=== PATIENT | female | born 1970 | race Native Hawaiian/Other Pacific Islander ===

== ENCOUNTER 2020-03-03 09:36 | Outpatient (REF) | payer MEDICARE, MEDICAID, SELFPAY ==
[2020-03-03 10:11] LABS: MANUAL DIFF FLAG NO
[2020-03-03 10:18] LABS: Basophils Absolute Auto 0.1 X10*3/uL (0.0-0.2); Basophils Percent Auto 0.5 % (0-2); Eosinophils Absolute Auto 0.4 X10*3/uL (0.0-0.4); Eosinophils Percent Auto 3.8 % (0-4); Hematocrit 42.8 % (37-47); Imm Gran Abs Auto 0.06 X10*3/uL (0.00-0.03); Imm Gran Pct Auto 0.5 % (0.0-0.4); Lymphocytes Absolute Auto 2.7 X10*3/uL (1.2-4.9); Lymphocytes Percent Auto 24.2 % (20-40); Mean Corpuscular HGB Conc 32.7 g/dl (31.0-35.0); Mean Corpuscular Hemoglobin 27.9 pg (27.0-33.0); Mean Corpuscular Volume 85.3 fL (80-98); Mean Platelet Volume 10.9 fL (9.4-12.3); Monocytes Absolute Auto 0.6 X10*3/uL (0.1-1.2); Monocytes Percent Auto 5.7 % (2-11); Neutrophils Absolute Auto 7.3 X10*3/uL (2.0-8.3); Neutrophils Percent Auto 65.3 % (45-73); Platelet Count 289 X10*3/uL (160-400); Red Blood Count 5.02 X10*6/uL (4.20-5.50); Red Cell Distribution Width 13.4 % (11.0-16.0); White Blood Count 11.2 X10*3/uL (4.8-10.8)
[2020-03-03 10:25] LABS: Estimated Average Glucose 315 mg/dL; Hemoglobin A1c % 12.6 %
[2020-03-03 10:44] LABS: B Type Natriuretic Peptide < 10 pg/mL (<100)
[2020-03-03 10:50] LABS: Alanine Aminotransferase 27 U/L (0-31); Alkaline Phosphatase 115 U/L (39-117); Anion Gap 13 (12-20); Aspartate Amino Transferase 16 U/L (5-31); Blood Urea Nitrogen 17 mg/dL (9-16); Calcium 9.4 mg/dL (8.4-10.2); Carbon Dioxide 26 mmol/L (22-29); Chloride 98 mmol/L (96-108); Cholesterol 101 mg/dL; Estimated Glomerular Filt Rate 55; Glucose Fasting 377 mg/dL (60-99); HDL Cholesterol 34 mg/dL; LDL Cholesterol Calculated 48 mg/dl; Potassium 4.6 mmol/l (3.3-5.1); Sodium 132 mmol/L (135-145); Total Protein 7.5 g/dL (6.5-8.0); Triglycerides 99 mg/dL
[2020-03-03 11:42] LABS: Folate 10.4 ng/mL (> or = 4.0); Vitamin B12 499 pg/mL (200-900)
[2020-03-03 12:14] LABS: Glucose Urine UA 500 MG/DL (NEG); Leukocyte Esterase Urine NEG (NEG); Nitrite Urine NEG (NEG); PH 5.5 (5.0-8.0); Specific Gravity - Urine >= 1.030 (1.005-1.025); Urine Blood NEG (NEG); Urine Ketones 5 MG/DL (NEG); Urine Protein TRACE MG/DL (NEG-TRACE)
[2020-03-03 12:16] LABS: Appearance Urine CLOUDY; Color Urine DARK YELLOW
[2020-03-03 12:34] LABS: RBC Urine 0 /HPF (0); Squamous Epithelial Cell Urine 3+ /LPF; WBC Urine 0-2 /HPF (0-4)
[2020-03-03 12:35] LABS: Bacteria Urine TRACE /LPF; Mucus Urine TRACE /LPF
[2020-03-03 12:39] LABS: Microalbum/Creatinine Ratio Ur 18.4 ug/mg cr
== END 2020-03-03 09:37 | disposition home or self-care (01) ==
LOC: HO.LAB 09:36
PROVIDERS: PCP Internal Medicine; Visit Provider Internal Medicine
DX: E11.43 Type 2 diabetes mellitus with diabetic autonomic (poly)neuropathy (principal); E78.5 Hyperlipidemia, unspecified; I11.9 Hypertensive heart disease without heart failure; G57.93 Unspecified mononeuropathy of bilateral lower limbs; K31.84 Gastroparesis; K21.9 Gastro-esophageal reflux disease without esophagitis
CPT/HCPCS: 36415; 80053; 80061; 81003; 81015; 82043; 82607; 82746; 83036; 83880; 85025

== ENCOUNTER 2020-03-04 15:40 | Outpatient (REF) | payer MEDICARE, MEDICAID, SELFPAY | END 2020-03-04 15:41 | disposition home or self-care (01) | LOC: HO.LAB 15:40 | PROVIDERS: PCP Internal Medicine; Visit Provider Internal Medicine Gastroenterology | DX: Z13.89 Encounter for screening for other disorder (principal) ==

== ENCOUNTER 2020-03-07 20:30 | Outpatient (REF) | payer MEDICARE, MEDICAID, SELFPAY ==
[2020-03-14 19:02] LABS: Pancreatic Elastase-1 276 mcg/g
== END 2020-03-07 20:31 | disposition home or self-care (01) ==
LOC: HO.LNP 20:30
PROVIDERS: Visit Provider Internal Medicine Gastroenterology
DX: K86.89 Other specified diseases of pancreas (principal)
CPT/HCPCS: 82656

== ENCOUNTER 2020-03-08 13:55 | Outpatient (REF) | payer MEDICARE, MEDICAID, SELFPAY | END 2020-03-08 13:56 | disposition home or self-care (01) | LOC: HO.LNP 13:55 | PROVIDERS: Visit Provider Internal Medicine Gastroenterology | DX: Z13.89 Encounter for screening for other disorder (principal) ==

== ENCOUNTER → 2020-03-11 14:25 | Outpatient (BNVA) | payer MEDICARE, MEDICAID, SELFPAY | PROVIDERS: Visit Provider Internal Medicine Gastroenterology | DX: E11.43 Type 2 diabetes mellitus with diabetic autonomic (poly)neuropathy (principal); K31.84 Gastroparesis; K74.60 Unspecified cirrhosis of liver; K62.5 Hemorrhage of anus and rectum; K86.89 Other specified diseases of pancreas; K59.09 Other constipation; I10 Essential (primary) hypertension; F41.9 Anxiety disorder, unspecified; Z88.8 Allergy status to other drugs, medicaments and biological substances; Z79.4 Long term (current) use of insulin; Z79.82 Long term (current) use of aspirin; Z79.899 Other long term (current) drug therapy | CPT/HCPCS: 99212 ==

== ENCOUNTER 2020-04-06 09:38 | Outpatient (REF) | payer MEDICARE, MEDICAID, SELFPAY ==
--- NOTE | 2020-04-06 09:44 | US_ITS ---
EXAMINATION: US ABDOMEN COMPLETE CLINICAL INFORMATION: Unspecified cirrhosis of liver. COMPARISON: CT abdomen and pelvis 12/09/2019. Ultrasound abdomen complete 07/24/2019. Ultrasound abdomen with elastography 10/30/2018. TECHNIQUE: Real-time imaging of the abdominal viscera. FINDINGS: PANCREAS: Heterogeneous echogenicity with no focal abnormality. The tail is obscured by gas. ABDOMINAL AORTA: The proximal, mid, and distal segments are normal in caliber. INFERIOR VENA CAVA: Visualized portions are normal. LIVER: The liver is normal in size. The liver contour is normal. There is diffuse increased liver parenchymal echogenicity, consistent with hepatic steatosis. No focal hepatic lesion. There is no intrahepatic biliary duct dilatation seen. GALLBLADDER: There is a 0.7 cm gallbladder wall polyp noted. This appears increased in prominence from prior. 0.3 cm gallbladder wall polyp again noted. The gallbladder is physiologically distended without evidence of stones, sludge, wall thickening or pericholecystic fluid. COMMON BILE DUCT: Normal in caliber measuring 0.6 cm in diameter. RIGHT KIDNEY: Normal. No hydronephrosis. No renal calculi or focal parenchymal lesions. The kidney measures 11.8 cm in maximum dimension. LEFT KIDNEY: Lower pole 1.4 cm cyst. No hydronephrosis or renal calculi. The kidney measures 12.4 cm in maximum dimension. SPLEEN: Normal. The spleen measures 11.3 cm in maximum dimension. FREE FLUID: None. US/US abdomen complete IMPRESSION: No liver lesion identified. Of note, the contour of the liver appears normal. Hepatic steatosis present. 0.7 cm gallbladder wall polyp, appearing increased in size from prior. Given that this is growing, suggest continued close follow-up versus consideration of removal.
== END 2020-04-06 09:39 | disposition home or self-care (01) ==
LOC: HO.US 09:38
PROVIDERS: PCP Internal Medicine; Visit Provider Internal Medicine Gastroenterology
DX: K74.60 Unspecified cirrhosis of liver (principal)
CPT/HCPCS: 76700

== ENCOUNTER → 2020-05-06 11:30 | Outpatient (BNVA) | payer OTHER, SELFPAY | PROVIDERS: Visit Provider Anesthesiology | DX: M47.816 Spondylosis without myelopathy or radiculopathy, lumbar region (principal); M96.1 Postlaminectomy syndrome, not elsewhere classified; M43.16 Spondylolisthesis, lumbar region; G47.33 Obstructive sleep apnea (adult) (pediatric); K74.60 Unspecified cirrhosis of liver; E66.01 Morbid (severe) obesity due to excess calories; Z68.43 Body mass index [BMI] 50.0-59.9, adult | CPT/HCPCS: Q3014 ==

== ENCOUNTER → 2020-05-10 10:24 | Outpatient (BNVA) | payer MEDICARE, MEDICAID, SELFPAY | PROVIDERS: PCP Internal Medicine; Visit Provider Internal Medicine Gastroenterology | DX: Z13.89 Encounter for screening for other disorder (principal) | CPT/HCPCS: Q3014 ==

== ENCOUNTER 2020-05-17 11:08 | Day surgery (SDC) | payer MEDICARE, SELFPAY ==
[2020-05-06 20:36] VITALS: BMI 51.2
--- NOTE | 2020-05-07 15:22 | P.CONAN_ITS ---
HPI - Anesthesia Eval Consult details Narrative: Pt cancelled 05/17/20 by anesthesia d/t elevated blood sugar. Needs endocrine clearance before reschedule. 50yo F for Upper Endoscopy and Colonoscopy [facility] Past Medical History Medical History Anxiety Asthma Benign essential hypertension Body mass index [BMI] 50.0-59.9, adult Chronic constipation Cirrhosis of liver without ascites Depression Diastolic dysfunction Dyslipidemia Fatty pancreas Gastroparesis GERD (gastroesophageal reflux disease) HTN (hypertension) Insomnia Liver cirrhosis Lumbar degenerative disc disease Morbid (severe) obesity due to excess calories Neuropathic pain of both feet Obstructive sleep apnea Pars defect of lumbar spine Periodic limb movement disorder Postlaminectomy syndrome, lumbar Rectal bleeding Sleep apnea with use of continuous positive airway pressure (CPAP) Spondylolisthesis, lumbar region Spondylosis of lumbar spine Type 2 diabetes mellitus with diabetic autonomic (poly)neuropathy Family History Family History (Updated 05/10/20 @ 10:27 by Tara Gonzalez CMA) Father Diabetes mellitus Hypertension Mother Diabetes mellitus Hypertension Uterine cancer History of heart attack Surgical History Surgical History H/O cardiac catheterization (~12/14/17) H/O section History of appendectomy History of laryngoscopy (~02/10/19) History of lumbar discectomy History of ventral hernia repair (~2008) Social History Social History (Updated 05/10/20 @ 10:27 by Tara Gonzalez CMA) Alcohol intake: never Smoking Status: Former smoker Meds Allergies Allergy/AdvReac Type Severity Reaction Status Date / Time empagliflozin Allergy Intermediate RASH Verified 05/06/20 11:32 [From JARDIANCE] metformin [METFORMIN] AdvReac Intermediate RASH, Verified 05/06/20 11:32 sick, rash, gi upset sitagliptin [From JANUVIA] AdvReac Unknown nausea, Verified 05/06/20 11:32 hypoglycemia Home Medications Medication Instructions Recorded Confirmed Type aspirin 81 mg tablet,delayed 81 mg PO DAILY 03/04/20 05/10/20 History release atorvastatin 40 mg tablet 40 mg PO DAILY tab 03/04/20 05/10/20 History budesonide-formoterol HFA 160 2 puff INHALATION BID 03/04/20 05/10/20 History mcg-4.5 mcg/actuation aerosol inhaler dulaglutide 1.5 mg/0.5 mL 1.5 mg SUBCUT QWEEK ml 03/04/20 05/10/20 History subcutaneous pen injector furosemide 20 mg tablet 20 mg PO DAILY tab 03/04/20 05/10/20 History insulin regular hum U-500 conc See Rx Instructions SUBCUT 03/04/20 05/10/20 History TIDWMEAL ml metoprolol succinate 25 mg 25 mg PO DAILY 03/04/20 05/10/20 History tablet,extended release 24 hr pramipexole 1 mg tablet 1 mg PO BID tab 03/04/20 05/10/20 History spironolactone 50 mg tablet 50 mg PO DAILY tab 03/04/20 05/10/20 History Exam Exam Date and Time: May 07, 2020 1522 Height,Weight and Vital Signs: Height 5 ft 3 in Weight 131.088 kg Pertinent Lab Results Pertinent Lab Results: Laboratory Tests 12/09/19 12/09/19 11:45 11:45 WBC 10.2 Hgb 12.9 Hct 40.9 Plt Count 300 Sodium 137 Potassium 4.1 Chloride 103 Bicarbonate 28 Total Bilirubin 0.6 Direct Bilirubin 0.3 AST 16 ALT 21 Alkaline Phosphatase 102 Laboratory Tests 03/03/20 09:52 BUN 17 H Creatinine 1.05 Narrative Narrative: ECHO 09/2018: Nml LV sys function with mild LVH, impaired relax, valves wnl, no pericard effusion EKG 09/2019: NSR @ 88 Per pcp note from 12/2019: Repeat nuc stress done at [facility] a few months ago came out nml. Per cardiology note 05/2019: cardiac cath with no obstructive CAD Assessment and Plan Assessment Anesthesia Assessment: Chart Reviewed
[2020-05-17 11:30] VITALS: BMI 49.6
[2020-05-17 11:31] LABS: Glucose, Whole Blood 435 mg/dL (60-115)
[2020-05-17 11:42] VITALS: BP 147/93; PULSE 107; RESP 18; TEMP 36.3; O2SAT 95
--- NOTE | 2020-05-17 11:44 | PC.NURSE ---
Procedure cancelled by Anesthesia because of elevated blood glucose (435) Patient to follow up with [employer] prior to next endoscopic procedure
[2020-05-17 11:46] LABS: Glucose, Whole Blood 452 mg/dL (60-115)
== END 2020-05-17 23:59 ==
LOC: HO.SSS 11:09
PROVIDERS: PCP Internal Medicine; Visit Provider Internal Medicine Gastroenterology
DX: K62.5 Hemorrhage of anus and rectum (principal); Z53.8 Procedure and treatment not carried out for other reasons; K59.01 Slow transit constipation; K74.60 Unspecified cirrhosis of liver; K76.0 Fatty (change of) liver, not elsewhere classified; K31.84 Gastroparesis; K21.9 Gastro-esophageal reflux disease without esophagitis; J45.909 Unspecified asthma, uncomplicated; E11.21 Type 2 diabetes mellitus with diabetic nephropathy; Z79.4 Long term (current) use of insulin
CPT/HCPCS: 82947

== ENCOUNTER 2020-06-01 09:32 | Outpatient (REF) | payer OTHER, SELFPAY ==
[2020-06-01 09:41] LABS: MANUAL DIFF FLAG NO
[2020-06-01 10:09] LABS: Basophils Absolute Auto 0.1 X10*3/uL (0.0-0.2); Basophils Percent Auto 0.6 % (0-2); Eosinophils Absolute Auto 0.5 X10*3/uL (0.0-0.4); Eosinophils Percent Auto 4.8 % (0-4); Hematocrit 41.8 % (37-47); Hemoglobin 13.2 g/dl (12.0-16.0); Imm Gran Abs Auto 0.06 X10*3/uL (0.00-0.03); Imm Gran Pct Auto 0.6 % (0.0-0.4); Lymphocytes Absolute Auto 2.6 X10*3/uL (1.2-4.9); Mean Corpuscular HGB Conc 31.6 g/dl (31.0-35.0); Mean Corpuscular Hemoglobin 27.5 pg (27.0-33.0); Mean Corpuscular Volume 87.1 fL (80-98); Mean Platelet Volume 11.2 fL (9.4-12.3); Monocytes Absolute Auto 0.6 X10*3/uL (0.1-1.2); Monocytes Percent Auto 5.7 % (2-11); Neutrophils Absolute Auto 6.6 X10*3/uL (2.0-8.3); Neutrophils Percent Auto 63.3 % (45-73); Platelet Count 293 X10*3/uL (160-400); Red Cell Distribution Width 13.3 % (11.0-16.0); White Blood Count 10.4 X10*3/uL (4.8-10.8)
[2020-06-01 10:32] LABS: Alanine Aminotransferase 34 U/L (0-31); Alkaline Phosphatase 93 U/L (39-117); Anion Gap 15 (12-20); Aspartate Amino Transferase 25 U/L (5-31); Bilirubin Total 0.6 mg/dL (0.0-1.0); Blood Urea Nitrogen 18 mg/dL (9-16); Calcium 9.8 mg/dL (8.4-10.2); Carbon Dioxide 27 mmol/L (22-29); Chloride 103 mmol/L (96-108); Cholesterol 97 mg/dL; Estimated Glomerular Filt Rate > 60; Glucose Fasting 197 mg/dL (60-99); HDL Cholesterol 32 mg/dL; LDL Cholesterol Calculated 33 mg/dl; Potassium 4.7 mmol/l (3.3-5.1); Sodium 140 mmol/L (135-145); Total Protein 7.5 g/dL (6.5-8.0); Triglycerides 161 mg/dL
[2020-06-01 10:43] LABS: Glucose Urine UA NEG (NEG); Leukocyte Esterase Urine NEG (NEG); Nitrite Urine NEG (NEG); PH 5.5 (5.0-8.0); Specific Gravity - Urine 1.025 (1.005-1.025); Urine Blood TRACE (NEG); Urine Ketones NEG (NEG); Urine Protein NEG (NEG-TRACE)
[2020-06-01 10:47] LABS: Appearance Urine CLEAR; Color Urine YELLOW; TSH reflex Free T4 2.17 mIU/mL (0.32-4.0)
[2020-06-01 10:53] LABS: INTERNATIONAL NORM RATIO 1.1 (0.9-1.1); Prothrombin Time 13.1 SEC (10.8-13.0)
[2020-06-01 11:02] LABS: RBC Urine 0-2 /HPF (0); WBC Urine 0-2 /HPF (0-4)
[2020-06-01 11:03] LABS: Bacteria Urine 1+ /LPF; Hyaline Casts Urine 0-2 /LPF; Mucus Urine 1+ /LPF; Uric Acid Crystals Urine TRACE /LPF
[2020-06-01 11:10] LABS: Microalbum/Creatinine Ratio Ur 7.3 ug/mg cr
[2020-06-01 11:13] LABS: Squamous Epithelial Cell Urine 2+ /LPF
== END 2020-06-01 09:33 | disposition home or self-care (01) ==
LOC: HO.LAB 09:32
PROVIDERS: Anesthesiology; PCP Internal Medicine; Visit Provider Internal Medicine
DX: I11.0 Hypertensive heart disease with heart failure (principal); K21.9 Gastro-esophageal reflux disease without esophagitis; E11.43 Type 2 diabetes mellitus with diabetic autonomic (poly)neuropathy; E78.5 Hyperlipidemia, unspecified; E78.00 Pure hypercholesterolemia, unspecified; K74.60 Unspecified cirrhosis of liver; G57.93 Unspecified mononeuropathy of bilateral lower limbs; E66.01 Morbid (severe) obesity due to excess calories
CPT/HCPCS: 36415; 80053; 80061; 81001; 81003; 82043; 84443; 85025; 85610

== ENCOUNTER → 2020-07-06 14:02 | Outpatient (BNVA) | payer OTHER, SELFPAY | PROVIDERS: PCP Internal Medicine; Visit Provider Internal Medicine | DX: E66.01 Morbid (severe) obesity due to excess calories (principal); G47.33 Obstructive sleep apnea (adult) (pediatric); J45.909 Unspecified asthma, uncomplicated; R06.00 Dyspnea, unspecified | CPT/HCPCS: 99212 ==

== ENCOUNTER 2020-07-16 07:27 | Day surgery (SDC) | payer OTHER, SELFPAY ==
[2020-07-12 12:41] VITALS: BMI 51.2
--- NOTE | 2020-07-13 13:51 | HO.ANESPROP2 ---
Documented by User: Gale Wright 07/14/20 11:48 HPI - Anesthesia Eval Consult details Narrative: 50yo F for Lumbar Spinal Cord Simulation Trial Pt with persistant hyperglycemia was cancelled 04/2020 for endo procedure. Case reviewed with Dr Clemons. Ok to proceed DOS if BS<300. Susana RN at Dr Jones office notified. A1C 02/2020 = 12.6%. Dr Jones aware. 07/09/20 - Endocrine telehealth visit and pt given instructions regarding insulin preop. Pulmonary cleared PMFSH Active Problems Active Problems: All Active Problems (Updated 07/12/20 @ 12:40 by Daisy Zee) Foamy urine (Acute) Colon cancer screening (Acute) Dyspnea on effort (Acute) Asthma (Acute) Morbid obesity with BMI of 50.0-59.9, adult (Acute) Liver cirrhosis (Acute) Pars defect of lumbar spine (Acute) Spondylolisthesis, lumbar region (Acute) Postlaminectomy syndrome, lumbar (Acute) Spondylosis of lumbar spine (Acute) Rectal bleeding (Acute) Fatty pancreas (Acute) Chronic constipation (Acute) Cirrhosis of liver without ascites (Acute) Body mass index [BMI] 50.0-59.9, adult (Acute) Morbid (severe) obesity due to excess calories (Acute) Depression (Acute) Anxiety (Acute) Insomnia (Acute) Obstructive sleep apnea (Acute) Periodic limb movement disorder (Acute) Neuropathic pain of both feet (Acute) GERD (gastroesophageal reflux disease) (Acute) Gastroparesis (Acute) Lumbar degenerative disc disease (Acute) Benign essential hypertension (Acute) Dyslipidemia (Acute) Diastolic dysfunction (Acute) Type 2 diabetes mellitus with diabetic autonomic (poly)neuropathy (Acute) Past Medical History Medical History Anxiety Asthma Asthma Atypical chest pain Benign essential hypertension Body mass index [BMI] 50.0-59.9, adult Chronic constipation Cirrhosis of liver without ascites Depression Diastolic dysfunction Dyslipidemia Dyspnea on effort Fatty pancreas Gastroparesis GERD (gastroesophageal reflux disease) HTN (hypertension) Insomnia Liver cirrhosis Lumbar degenerative disc disease Morbid (severe) obesity due to excess calories Morbid obesity with BMI of 50.0-59.9, adult Neuropathic pain of both feet Obstructive sleep apnea On beta kelsey at home Pars defect of lumbar spine Periodic limb movement disorder Postlaminectomy syndrome, lumbar Rectal bleeding Sleep apnea with use of continuous positive airway pressure (CPAP) Spondylolisthesis, lumbar region Spondylosis of lumbar spine Type 2 diabetes mellitus with diabetic autonomic (poly)neuropathy Family History Family History Father Diabetes mellitus Hypertension Mother Diabetes mellitus Hypertension Uterine cancer History of heart attack Surgical History Surgical History H/O cardiac catheterization (~12/14/17) H/O section History of appendectomy History of esophagogastroduodenoscopy (EGD) History of laryngoscopy (~02/10/19) History of lumbar discectomy History of ventral hernia repair (~2008) Social History Social History Are you a primary career technical education instructor to a significant other at home: No Do you presently have visiting nurse or other home services: Yes (Home Health Aide, VNA) Alcohol intake: never Smoking Status: Former smoker Smoking Quit Date: age 37 Use of substances other than those prescribed or required for medical reasons: No Have you been hit, kicked, punched, or otherwise hurt by someone within the past year? If so, by whom?: No Advance Directives: No Advance Directives Information Provided: No Advance Directives on File: No Recently lost weight without trying: No Meds Allergies Allergy/AdvReac Type Severity Reaction Status Date / Time empagliflozin Allergy Intermediate RASH Verified 07/06/20 14:12 [From JARDIANCE] metformin [METFORMIN] AdvReac Intermediate RASH, Verified 07/06/20 14:12 sick, rash, gi upset sitagliptin [From JANUVIA] AdvReac Unknown nausea, Verified 07/06/20 14:12 hypoglycemia Home Medications Medication Instructions Recorded Confirmed Last Taken Type aspirin 81 mg tablet,delayed 81 mg PO DAILY 03/04/20 07/12/20 07/06/20 History release atorvastatin 40 mg tablet 40 mg PO DAILY tab 03/04/20 07/12/20 Unknown History budesonide-formoterol HFA 160 2 puff INHALATION BID 03/04/20 07/12/20 Unknown History mcg-4.5 mcg/actuation aerosol inhaler dulaglutide 1.5 mg/0.5 mL 1.5 mg SUBCUT QWEEK ml 03/04/20 07/12/20 Unknown History subcutaneous pen injector insulin regular hum U-500 conc See Rx Instructions SUBCUT 03/04/20 07/12/20 Unknown History TIDWMEAL ml metoprolol succinate 25 mg 25 mg PO DAILY 03/04/20 07/12/20 07/16/20 History tablet,extended release 24 hr pramipexole 1 mg tablet 1 mg PO BID tab 03/04/20 07/12/20 07/16/20 History spironolactone 50 mg tablet 50 mg PO DAILY tab 03/04/20 07/12/20 Unknown History fluticasone furoate 100 1 inh INHALATION DAILY 07/06/20 07/16/20 07/16/20 History mcg-vilanterol 25 mcg/dose inhalation powder fluticasone propionate 50 1 spray INTRANASAL DAILY 07/06/20 07/12/20 Unknown History mcg/actuation nasal spray,suspension citalopram 1 tab PO DAILY 07/12/20 07/12/20 Unknown History Exam Exam Date and Time: July 13, 2020 1351 Height,Weight and Vital Signs: Height 5 ft 3 in Weight 131.088 kg Pertinent Lab Results Pertinent Lab Results: Laboratory Tests 06/01/20 06/01/20 09:40 09:40 WBC 10.4 Hgb 13.2 Hct 41.8 Plt Count 293 Sodium 140 Potassium 4.7 Chloride 103 Carbon Dioxide 27 BUN 18 H Creatinine 0.95 Narrative Narrative: ECHO 09/2018: Nml LV sys function with mild LVH, impaired relax, valves wnl, no pericard effusion EKG 09/2019: NSR @ 88 Per pcp note from 12/2019: Repeat nuc stress done at [facility] a few months ago came out nml. Per cardiology note 05/2019: cardiac cath with no obstructive CAD Assessment and Plan Assessment Anesthesia Assessment: Chart Reviewed Documented by User: Valeria Stacy 07/16/20 08:30 [facility] Past Medical History Medical History Anxiety Asthma Asthma Atypical chest pain Benign essential hypertension Body mass index [BMI] 50.0-59.9, adult Chronic constipation Cirrhosis of liver without ascites Depression Diastolic dysfunction Dyslipidemia Dyspnea on effort Fatty pancreas Gastroparesis GERD (gastroesophageal reflux disease) HTN (hypertension) Insomnia Liver cirrhosis Lumbar degenerative disc disease Morbid (severe) obesity due to excess calories Morbid obesity with BMI of 50.0-59.9, adult Neuropathic pain of both feet Obstructive sleep apnea On beta kelsey at home Pars defect of lumbar spine Periodic limb movement disorder Postlaminectomy syndrome, lumbar Rectal bleeding Sleep apnea with use of continuous positive airway pressure (CPAP) Spondylolisthesis, lumbar region Spondylosis of lumbar spine Type 2 diabetes mellitus with diabetic autonomic (poly)neuropathy Family History Family History Father Diabetes mellitus Hypertension Mother Diabetes mellitus Hypertension Uterine cancer History of heart attack Surgical History Surgical History H/O cardiac catheterization (~12/14/17) H/O section History of appendectomy History of esophagogastroduodenoscopy (EGD) History of laryngoscopy (~02/10/19) History of lumbar discectomy History of ventral hernia repair (~2008) Social History Social History Are you a primary career technical education instructor to a significant other at home: No Do you presently have visiting nurse or other home services: Yes (Home Health Aide, VNA) Alcohol intake: never Smoking Status: Former smoker Smoking Quit Date: age 37 Use of substances other than those prescribed or required for medical reasons: No Have you been hit, kicked, punched, or otherwise hurt by someone within the past year? If so, by whom?: No Advance Directives: No Advance Directives Information Provided: No Advance Directives on File: No Recently lost weight without trying: No Meds Allergies Allergy/AdvReac Type Severity Reaction Status Date / Time empagliflozin Allergy Intermediate RASH Verified 07/06/20 14:12 [From JARDIANCE] metformin [METFORMIN] AdvReac Intermediate RASH, Verified 07/06/20 14:12 sick, rash, gi upset sitagliptin [From MAY] AdvReac Unknown nausea, Verified 07/06/20 14:12 hypoglycemia Home Medications Medication Instructions Recorded Confirmed Last Taken Type aspirin 81 mg tablet,delayed 81 mg PO DAILY 03/04/20 07/12/20 07/06/20 History release atorvastatin 40 mg tablet 40 mg PO DAILY tab 03/04/20 07/12/20 Unknown History budesonide-formoterol HFA 160 2 puff INHALATION BID 03/04/20 07/12/20 Unknown History mcg-4.5 mcg/actuation aerosol inhaler dulaglutide 1.5 mg/0.5 mL 1.5 mg SUBCUT QWEEK ml 03/04/20 07/12/20 Unknown History subcutaneous pen injector insulin regular hum U-500 conc See Rx Instructions SUBCUT 03/04/20 07/12/20 Unknown History TIDWMEAL ml metoprolol succinate 25 mg 25 mg PO DAILY 03/04/20 07/12/20 07/16/20 History tablet,extended release 24 hr pramipexole 1 mg tablet 1 mg PO BID tab 03/04/20 07/12/20 07/16/20 History spironolactone 50 mg tablet 50 mg PO DAILY tab 03/04/20 07/12/20 Unknown History fluticasone furoate 100 1 inh INHALATION DAILY 07/06/20 07/16/20 07/16/20 History mcg-vilanterol 25 mcg/dose inhalation powder fluticasone propionate 50 1 spray INTRANASAL DAILY 07/06/20 07/12/20 Unknown History mcg/actuation nasal spray,suspension citalopram 1 tab PO DAILY 07/12/20 07/12/20 Unknown History Exam Airway Mallampati Class: III TM Dist: >3cm Neck ROM: Full Heart: RRR Lungs: CTA
[2020-07-16] VITALS (46 sets, daily range): BP systolic 65–151; BP diastolic 31–82; PULSE 70–85; RESP 11–18; TEMP 36.4–36.8; O2SAT 93–100
--- NOTE | ~2020-07-16 | FL_ITS ---
EXAMINATION: XR FLUOROSCOPY WITH IMAGES CLINICAL INFORMATION: Spinal stimulator trial COMPARISON: None. TECHNIQUE: Fluoroscopy performed by Dr. Jones. Fluoroscopy time: 4.5 minutes DAP: 40.1 mGycm2 Images: 4 FINDINGS: FINDINGS: Intraoperative fluoroscopy was provided for use by Dr. Jones. A radiologist was not present during imaging. Today's dictation is only for administrative purposes to document intraoperative fluoroscopy. FL/FL guidance in OR IMPRESSION: Intraoperative fluoroscopy provided for use by Dr. Jones. Please see procedure note for details findings.
--- NOTE | 2020-07-16 06:56 | MHC.SHP ---
Pre-Procedural Eval Section A The patient is an INPATIENT: No Changes since office visit: Yes Patient answered all questions The History & Physical has been completed within 30 days and I have reviewed it.: No Section B Chief Complaint: postlaminectomy syndrome,lumbar Details of Present Illness: as above Relevant Family History (Specify if Yes): No Relevant Social History: None Present Medications: see Short Stay Collaborative assessment Medical History: Significant History History of Previous Operations: Relevant previous surgery/procedure and date(s) Allergies: Allergies Allergy/AdvReac Type Severity Reaction Status Date / Time empagliflozin Allergy Intermediate RASH Verified 07/06/20 14:12 [From JARDIANCE] metformin [METFORMIN] AdvReac Intermediate RASH, Verified 07/06/20 14:12 sick, rash, gi upset sitagliptin [From JANUVIA] AdvReac Unknown nausea, Verified 07/06/20 14:12 hypoglycemia Review of Systems Sugical H&P ROS: Negative: Cardiovascular, Respiratory, Neurological, Psychiatric, Hem-Onc, Allergic/Immunologic, Gastrointestinal, Genitourinary, Musculoskeletal, Integumentary, Endocrine and Eyes/Ears/Nose/Throat and Yes, Specify: Constitution Exam Surgical H&P Exam: Normal: HEENT, Normal: Heart, Normal: Lungs, Normal: Extremities, Normal: Abdomen, Normal: Skin and Normal: Neurological Plan Diagnosis/Plan: Unchanged I have reviewed the history and physical and performed a pertinent physical examination on my patient. No changes have occurred unless specified.
--- NOTE | 2020-07-16 07:00 | PM.OP ---
Brief Operative Note Date of Service: 07/16/20 Pre-op diagnosis: Postlaminectomy since Post-op diagnosis: same Procedure: Trial of spinal cord stimulation Nevro Implants: None permanent Surgeon: Gigi Jones MD Anesthesia: GETA Estimated blood loss (mL): 20 Condition: stable Disposition: PACU
--- NOTE | 2020-07-16 07:01 | W.PM.OPN ---
Operative Note Operative Note Date of Service: 07/16/20 Narrative: Trial of spinal cord stimulation [place] After obtaining informed consent the patient was brought to the operating room, SHE was positioned prone on operating table, [place] [employer] monitors were applied and patient was deeply sedated. The patient was taken inside of the operating room where she was positioned prone operating table. Time-out was performed delineating correct site, side, the nature of the procedure, patient's allergy, preoperative antibiotic if needed. All operating room staff was participating in OR time-out procedure. Patient's entire back was prepped with ChloraPrep twice and draped with full body fenestrated drape. Sterilely draped C-arm was brought over operating field and sqare picture of L1-L2 L3 vertebrae were demonstrated on the screen. Attention FIRST was concentrated on the L1-L2 epidural interspace. The location of the projection of the right pedicle center of the L3 vertebra was found on the skin using C-arm. This location was injected with mixture of lidocaine 2% and Marcaine 0.5% 5 cc. After that 11 blade was used to make a jaylin on the skin. 10 cm 14 gauge straight introducer epidural needle was inserted through the jaylin and advanced to L1-L2 _epidural interspace. The advancement of the needle was performed on anterior posterior and lateral views. Guitar wire and loss of resistance technique were used to locate epidural space. When guitar wire was spread in the epidural fashion, epidural lead was inserted through the skin and it was advanced to T8 position SLIGHTLY right OF THE MIDLINE. After that location of the projection of the LEFT pedicle center of the L3 vertebra was found on the skin using C-arm. This location was injected with mixture of lidocaine 2% and Marcaine 0.5% 5 cc. After that 11 blade was used to make a jaylin on the skin. 10 cm 14 gauge straight introducer epidural needle was inserted through the jaylin and advanced to L1-L2 EPIDURAL INTERSPACE. The advancement of the needle was performed on anterior posterior and lateral views. Guitar wire and loss of resistance technique were used to locate epidural space. When guitar wire was spread in the epidural fashion, epidural lead was inserted through the needle . Unfortunately advancement of the epidural leads encounter significant difficulties at this level. Of the position of the needle probably was close to the lower margin of L1 lamina and advancement of the electrode encountered multiple difficulties. After that the 10 cm needle was withdrawn and 15 cm needle was inserted into the same side and advanced to T12-L1 epidural interspace on posterior anterior and lateral views. Loss of resistance to air and guidewire were used to locate epidural space. After epidural space was located epidural lead was inserted into the needle and advanced to middle of T9 epidural interspace slightly left of the midline. At this moment IMPEDANCE was checked . After satisfactory position of the leads were established, the needles were withdrawn, the stylette wires were removed from the epidural leads. The anchoring devices were dislodged on the leads and advanced to the level of the skin. The anchoring devices were sutured with two 0-0 silk sutures to the skin of the patient. The leads were connected to testing device. Bacitracin ointment was applied to the entrance point of bilateral needles. Sterile dressing was applied to the patient's back. The testing device was also taped to the patient's back. Upon completion of the procedure the patient was taken to PACU where SHE recovered uneventfully.
[2020-07-16 07:44] LABS: Glucose, Whole Blood 145 mg/dL (60-115)
[2020-07-16 07:57] LABS: INTERNATIONAL NORM RATIO 1.2 (0.9-1.1); Prothrombin Time 13.8 SEC (10.8-13.0)
[2020-07-16 08:00] LABS: Partial Thromboplastin Time 34.3 SEC (24.1-38.0)
[2020-07-16] MEDS: 0.9 % Sodium Chloride 1,000 ML 50 ML IVCONT (08:20)
[2020-07-16] MEDS: ondansetron HCL 4 MG/2 ML VIAL IVPUSH (11:50)
[2020-07-16 15:49] LABS: Glucose, Whole Blood 190 mg/dL (60-115)
[2020-07-16] MEDS: oxyCODONE HCl Immed Release 5 MG TABLET PO (16:01)
--- NOTE | 2020-07-16 16:55 | HO.POSTANES ---
Post Anesthesia Evaluation Post Anesthesia Evaluation Vital Signs: Vital Signs Temp Pulse Resp BP Pulse Ox 07/16/20 15:35 82 18 116/55 L 98 07/16/20 14:35 76 16 96 07/16/20 14:05 81 18 117/38 L 98 07/16/20 13:50 79 18 117/74 98 07/16/20 13:35 74 18 108/79 97 07/16/20 13:20 82 18 116/71 97 07/16/20 12:50 75 16 100/57 L 98 07/16/20 12:34 82 15 102/52 L 93 07/16/20 12:28 76 102/53 L 07/16/20 12:23 76 105/57 L 07/16/20 12:19 76 15 91/60 93 07/16/20 12:13 76 105/60 07/16/20 12:04 76 12 102/52 L 93 07/16/20 12:01 75 83/48 L 07/16/20 11:58 77 85/41 L 07/16/20 11:57 77 85/44 L 07/16/20 11:55 83 75/40 L 07/16/20 11:53 80 83/44 L 07/16/20 11:49 77 15 78/44 L 94 07/16/20 11:46 77 96/44 L 07/16/20 11:45 78 86/64 L 07/16/20 11:43 76 69/36 L 07/16/20 11:40 75 79/42 L 07/16/20 11:37 77 80/39 L 07/16/20 11:34 76 13 85/41 L 98 07/16/20 11:31 73 80/40 L 07/16/20 11:28 74 95/41 L 07/16/20 11:25 70 91/51 L 07/16/20 11:22 76 83/32 L 07/16/20 11:19 75 11 L 84/40 L 96 07/16/20 11:16 76 97/55 L 07/16/20 11:13 81 107/50 L 07/16/20 11:10 74 97/65 07/16/20 11:08 76 14 93/66 100 07/16/20 11:04 79 13 77/45 L 100 07/16/20 10:56 80 71/36 L 07/16/20 10:54 79 88/46 L 07/16/20 10:51 84 12 70/32 L 98 07/16/20 10:46 81 15 73/42 L 100 07/16/20 10:41 79 14 80/38 L 100 07/16/20 10:38 83 13 70/31 L 97 07/16/20 10:37 85 18 65/36 L 99 07/16/20 08:04 97.6 F 83 16 151/82 H 96 Anesthesia: General Mental Status: Awake Pain Control: Satisfactory Nausea/Vomiting: None Hydration: Adequate Anesthesia-Related Issues: No Anes. Related Issues
== END 2020-07-16 17:50 | disposition home or self-care (01) ==
PROVIDERS: Nurse Practitioner Family; PCP Internal Medicine; Visit Provider Anesthesiology
PROC: (CPT 63650; principal; 2020-07-16 07:30)
DX: M96.1 Postlaminectomy syndrome, not elsewhere classified (principal); M47.816 Spondylosis without myelopathy or radiculopathy, lumbar region; M43.16 Spondylolisthesis, lumbar region; E11.43 Type 2 diabetes mellitus with diabetic autonomic (poly)neuropathy; Z79.4 Long term (current) use of insulin; I10 Essential (primary) hypertension; G47.33 Obstructive sleep apnea (adult) (pediatric); J45.909 Unspecified asthma, uncomplicated; K74.60 Unspecified cirrhosis of liver; E66.01 Morbid (severe) obesity due to excess calories; Z68.43 Body mass index [BMI] 50.0-59.9, adult; Z87.891 Personal history of nicotine dependence; Z79.82 Long term (current) use of aspirin; Z79.899 Other long term (current) drug therapy; Z88.8 Allergy status to other drugs, medicaments and biological substances
CPT/HCPCS: 63650 ×2; 36415; 82947; 85610; 85730; C1713; C1897; J0131; J0690; J1100; J2250; J2405; J3010

== ENCOUNTER → 2020-07-22 11:20 | Outpatient (BNVA) | payer OTHER, SELFPAY | PROVIDERS: PCP Internal Medicine; Visit Provider Anesthesiology | DX: M47.816 Spondylosis without myelopathy or radiculopathy, lumbar region (principal); M96.1 Postlaminectomy syndrome, not elsewhere classified; M43.16 Spondylolisthesis, lumbar region; G47.33 Obstructive sleep apnea (adult) (pediatric); K74.60 Unspecified cirrhosis of liver; E66.01 Morbid (severe) obesity due to excess calories; Z68.43 Body mass index [BMI] 50.0-59.9, adult; Z71.3 Dietary counseling and surveillance; Z79.899 Other long term (current) drug therapy | CPT/HCPCS: 99212 ==

== ENCOUNTER 2020-09-08 23:08 | Emergency (ER) | payer OTHER, SELFPAY ==
--- NOTE | ~2020-09-08 | XR_ITS ---
EXAMINATION: XR CHEST CLINICAL INFORMATION: Chest pain COMPARISON: 06/13/2019 TECHNIQUE: Frontal view of the chest was obtained. FINDINGS: Cardiac leads overlie the chest. The lungs are well expanded. There is no focal consolidation, edema, or effusion. No pneumothorax. The cardiomediastinal silhouette is within normal limits. No acute osseous abnormality. XR/XR chest 1V IMPRESSION: No acute pulmonary finding.
[2020-09-08 23:22] VITALS: BP 123/77; PULSE 96; RESP 20; TEMP 37.2; O2SAT 96; BMI 51.5
--- NOTE | 2020-09-08 23:29 | ECG_ITS ---
Test Reason : CHEST PAIN Blood Pressure : / mmHG Vent. Rate : 092 BPM Atrial Rate : 092 BPM P-R Int : 158 ms QRS Dur : 098 ms QT Int : 346 ms P-R-T Axes : -15 -01 144 degrees QTc Int : 427 ms Normal sinus rhythm Low voltage QRS Nonspecific T wave abnormality Abnormal ECG When compared with ECG of 06-OCT-2019 02:19, Nonspecific T wave abnormality, worse in Inferior leads Referred By: Guanakito Kendrick Electronically Signed By:Samir Steve
[2020-09-08 23:56] LABS: MANUAL DIFF FLAG NO
[2020-09-08 23:57] VITALS: BP 122/72; PULSE 90; RESP 13; TEMP 36.6; O2SAT 98
[2020-09-08 23:57] LABS: Basophils Absolute Auto 0.1 X10*3/uL (0.0-0.2); Basophils Percent Auto 0.4 % (0-2); Eosinophils Absolute Auto 0.4 X10*3/uL (0.0-0.4); Eosinophils Percent Auto 2.9 % (0-4); Hematocrit 40.6 % (37-47); Hemoglobin 13.4 g/dl (12.0-16.0); Imm Gran Abs Auto 0.07 X10*3/uL (0.00-0.03); Imm Gran Pct Auto 0.5 % (0.0-0.4); Lymphocytes Absolute Auto 3.3 X10*3/uL (1.2-4.9); Lymphocytes Percent Auto 24.4 % (20-40); Mean Corpuscular Hemoglobin 27.9 pg (27.0-33.0); Mean Corpuscular Volume 84.4 fL (80-98); Mean Platelet Volume 10.8 fL (9.4-12.3); Monocytes Absolute Auto 0.9 X10*3/uL (0.1-1.2); Monocytes Percent Auto 6.6 % (2-11); Neutrophils Absolute Auto 8.9 X10*3/uL (2.0-8.3); Neutrophils Percent Auto 65.2 % (45-73); Platelet Count 308 X10*3/uL (160-400); Red Blood Count 4.81 X10*6/uL (4.20-5.50); Red Cell Distribution Width 13.1 % (11.0-16.0); White Blood Count 13.6 X10*3/uL (4.8-10.8)
[2020-09-09 00:17] LABS: COVID-19 Test Negative (Negative); IDNOW Serial# 9DD0AD1C
[2020-09-09 00:19] LABS: Troponin-I High Sensitivity < 3.5 ng/L (<3.5-17.0)
[2020-09-09 00:25] LABS: Anion Gap 14 (12-20); Blood Urea Nitrogen 28 mg/dL (9-16); Calcium 9.3 mg/dL (8.4-10.2); Carbon Dioxide 23 mmol/L (22-29); Chloride 101 mmol/L (96-108); Creatinine Clr Calc Pharmacy 75.1; Estimated Glomerular Filt Rate 46; Glucose Random 212 mg/dL (60-115); Potassium 3.8 mmol/L (3.3-5.1); Sodium 134 mmol/L (135-145)
--- NOTE | 2020-09-09 00:27 | ED_ITS ---
HPI - Chest Pain General Chief Complaint: Chest Pain Stated Complaint: Chest pain Time Seen by Provider: 09/09/20 00:10 Source: patient Mode of arrival: ambulatory Limitations: no limitations History of Present Illness HPI narrative: 50-year-old female who presents emergency department for evaluation of chest pain. Patient states that she was watching television at around 8:00 p.m. when she had a gradual onset left-sided chest pressure. She states that the pain is gotten progressively worse. She states the pain is constant but waxes and wanes in intensity. At its least the pain is 5/10 at its greatest the pain is 10/10. She states she does have pain that radiates to her left neck and down her left arm to her elbow. The pain is associated with shortness of breath and nausea. She denied lightheadedness, diaphoresis, pain in her back, vomiting associated with the chest pain. She states that this is her 1st episode of this type of chest pain. She did not take any medications at home for the pain. Related Data Home Medications Medication Instructions Recorded Confirmed aspirin 81 mg tablet,delayed 81 mg PO DAILY 03/04/20 08/27/20 release budesonide-formoterol HFA 160 2 puff INHALATION BID 03/04/20 08/27/20 mcg-4.5 mcg/actuation aerosol inhaler dulaglutide 1.5 mg/0.5 mL 1.5 mg SUBCUT QWEEK ml 03/04/20 08/27/20 subcutaneous pen injector insulin regular hum U-500 conc See Rx Instructions SUBCUT 03/04/20 08/27/20 TIDWMEAL ml metoprolol succinate 25 mg 25 mg PO DAILY 03/04/20 08/27/20 tablet,extended release 24 hr pramipexole 1 mg tablet 1 mg PO BID tab 03/04/20 08/27/20 spironolactone 50 mg tablet 50 mg PO DAILY tab 03/04/20 08/27/20 fluticasone furoate 100 1 inh INHALATION DAILY 07/06/20 08/27/20 mcg-vilanterol 25 mcg/dose inhalation powder fluticasone propionate 50 1 spray INTRANASAL DAILY 07/06/20 08/27/20 mcg/actuation nasal spray,suspension citalopram 1 tab PO DAILY 07/12/20 08/27/20 Previous Rx's Medication Instructions Recorded furosemide 20 mg tablet 20 mg PO DAILY #30 tab 06/16/20 lisinopril 5 mg tablet 5 mg PO DAILY #90 tab 06/16/20 bisacodyl 5 mg tablet,delayed 10 mg PO BEDTIME 1 Days #2 tab 06/28/20 release polyethylene glycol 3350 17 See Rx Instructions PO DAILY 1 06/28/20 gram/dose oral powder Days #238 g lubiprostone 8 mcg capsule 8 mcg PO BID #60 cap 07/15/20 omeprazole 20 mg capsule,delayed 20 mg PO BID 30 Days #60 cap 07/26/20 release atorvastatin 40 mg tablet 40 mg PO DAILY 90 Days #90 tab 08/24/20 gabapentin 100 mg capsule 100 mg PO TID #270 cap 08/24/20 lorazepam 0.5 mg tablet 0.5 mg PO TID PRN 30 Days #90 tab 08/24/20 tramadol 50 mg tablet See Rx Instructions PO BID PRN 28 08/24/20 Days #100 tab metoclopramide HCl 10 mg tablet 10 mg PO .COMPLEX PRN 30 Days #90 08/27/20 tab ondansetron 4 mg disintegrating 4 mg PO Q6-8H PRN 10 Days #40 tab 08/27/20 tablet fluconazole 150 mg tablet 150 mg PO DAILY 1 Days #1 tab 09/03/20 Allergies Allergy/AdvReac Type Severity Reaction Status Date / Time empagliflozin Allergy Intermediate RASH Verified 09/08/20 23:22 [From JARDIANCE] metformin [METFORMIN] AdvReac Intermediate RASH, Verified 09/08/20 23:22 sick, rash, gi upset sitagliptin [From JANUVIA] AdvReac Unknown nausea, Verified 09/08/20 23:22 hypoglycemia Review of Systems Review of Systems: Yes all other systems are reviewed and are negative [facility] Past Medical History [facility] Narrative: The patient denies tobacco, alcohol and drug use. Medical History Abdominal pain Anxiety Asthma Asthma Atypical chest pain Benign essential hypertension Body mass index [BMI] 50.0-59.9, adult Chronic constipation Cirrhosis of liver without ascites Depression Diabetes mellitus Diastolic dysfunction Dyslipidemia Dyspnea on effort Fatigue Fatty pancreas Gastroparesis GERD (gastroesophageal reflux disease) HTN (hypertension) Insomnia Liver cirrhosis Lumbar degenerative disc disease Morbid (severe) obesity due to excess calories Morbid obesity with BMI of 50.0-59.9, adult Morbid obesity with BMI of 50.0-59.9, adult Nausea and vomiting Neuropathic pain of both feet Obstructive sleep apnea On beta kelsey at home Pars defect of lumbar spine Pedal edema Periodic limb movement disorder Postlaminectomy syndrome, lumbar Pure hypercholesterolemia Rectal bleeding Sleep apnea with use of continuous positive airway pressure (CPAP) Spondylolisthesis, lumbar region Spondylosis of lumbar spine Type 2 diabetes mellitus with diabetic autonomic (poly)neuropathy Surgical History H/O cardiac catheterization (~12/14/17) H/O section History of appendectomy History of esophagogastroduodenoscopy (EGD) History of laryngoscopy (~02/10/19) History of lumbar discectomy History of ventral hernia repair (~2008) Family History Family History Father Diabetes mellitus Hypertension Mother Diabetes mellitus Hypertension Uterine cancer History of heart attack Social History Social History Alcohol intake: never Smoking Status: Former smoker Advance Directives: No Advance Directives Information Provided: Yes Physical Exam Vital Signs: Vital Signs: Last Vital Signs Temp 98.4 F 09/09/20 02:00 Pulse 82 09/09/20 02:00 Resp 16 09/09/20 02:00 BP 98/56 L 09/09/20 02:00 Pulse Ox 97 09/09/20 02:00 Body Mass Index 51.5 Const: General: cooperative, healthy appearing and in distress (Mild distress secondary to her chest pain) Orientation/consciousness: oriented to person and oriented to place Limitations: no limitations HENMT: Head: Yes normal to inspection, Yes normocephalic and Yes atraumatic Ears: external ears normal General nose exam: Normal external nose present Face and sinus: Yes normal facial exam Mouth: Normal oral and palatal mucosa present Throat: Yes posterior oropharynx normal Eyes: Periorbital: periorbital findings normal Eyelids: Yes eyelids normal Conjunctivae: conjunctivae normal Sclerae: sclerae normal Corneas: corneas normal Pupils: Equal, round and reactive pupils present Direct Ophthalmoscopy: normal light reflex Neck: Neck: Yes full ROM, Yes no lymphadenopathy, Yes no meningeal signs, Yes trachea midline and Yes supple Chest: Chest palpation & inspection: normal inspection of the chest and normal palpation of entire chest wall Resp: Effort & Inspection: normal respiratory effort and able to speak in complete sentences Auscultation: clear to auscultation bilaterally Cardio: Rate: regular rate Rhythm: regular rhythm Heart sounds: S1 normal heart sound present, S2 normal heart sound present and no murmurs GI: Inspection: Yes normal to inspection Palpation (GI): Soft to palpation, nontender, no guarding, not rigid and No hepatosplenomegaly present : General: Yes no CVA tenderness Back/Spine/Pelvis: Back: no CVA tenderness Cervical Spine: normal cervical lordosis Thoracic/Lumbar Spine: thoracic and lumbar spine normal to inspection Skin: Lesions: no lesions Rashes: no rashes Wounds: no wounds Neuro: General: oriented to person, oriented to place and no meningeal signs Cranial nerves: Yes CN's II-XII intact bilaterally and Yes Equal, round and reactive pupils present Cognition (Neuro): normal cognition Motor exam (neuro): 5/5 motor strength present throughout Extrem: General: Yes normal to inspection and Yes full ROM Psych: Appearance: well kempt Mental Status: mental status grossly normal Speech and movement: Normal speech and movement present Affect: normal affect Attitude: cooperative Thought process: Normal thought process present Thought content: Normal thought content present Course Course Course Narrative: 50-year-old female who presents emergency department for evaluation of left-sided anterior chest pain radiating to her left neck and left arm which began while at rest at 10:00 p.m.. The pain waxes and wanes in intensity. Patient's physical examination was unremarkable. Twelve EKG revealed no evidence of cardiac ischemia or injury. I did order a CBC, CMP, D-dimer, troponin, chest x-ray on this patient. Patient's pain was treated with Toradol 30 mg IV and her nausea was treated with Zofran 4 mg IV. 0242: The patient initially got good relief with the IV Toradol but then her pain returned. Repeat EKG done at [address] segment elevation or depression. There are some changes that I think are secondary to lead position. The patient's laboratory evaluation was unremarkable, she had an undetectable troponin, D-dimer was less than 200, chest x-ray revealed no significant pathology and COVID-19 is negative. At this time I do not think the patient's pain is secondary to coronary artery disease and is most likely caused by chest wall inflammation/costochondritis. I did discuss this with the patient. Patient was ordered to get morphine 4 mg IV. The patient will be discharged home and treated with ibuprofen and Tylenol. She was given verbal and printed instructions and advised to follow-up with her PCP and return if her symptoms get worse or she develops any symptoms that are concerning to her. MDM - Chest Pain Lab Data Result diagrams: 09/08/20 23:51 09/08/20 23:51 Labs: Lab Results 09/08/20 09/08/20 09/08/20 Range/Units 23:51 23:51 23:51 WBC 13.6 H (4.8-10.8) X10*3/uL RBC 4.81 (4.20-5.50) X10*6/uL Hgb 13.4 (12.0-16.0) g/dl Hct 40.6 (37-47) % MCV 84.4 (80-98) fL MCH 27.9 (27.0-33.0) pg MCHC 33.0 (31.0-35.0) g/dl RDW 13.1 (11.0-16.0) % Plt Count 308 (160-400) X10*3/uL MPV 10.8 (9.4-12.3) fL Immature Gran % (Auto) 0.5 H (0.0-0.4) % Neut % (Auto) 65.2 (45-73) % Lymph % (Auto) 24.4 (20-40) % [place] % (Auto) 6.6 (2-11) % Eos % (Auto) 2.9 (0-4) % Baso % (Auto) 0.4 (0-2) % Lymph # (Auto) 3.3 (1.2-4.9) X10*3/uL [place] # (Auto) 0.9 (0.1-1.2) X10*3/uL Eos # (Auto) 0.4 (0.0-0.4) X10*3/uL Baso # (Auto) 0.1 (0.0-0.2) X10*3/uL Abs Immat Gran (auto) 0.07 H (0.00-0.03) X10*3/uL Absolute Neuts (auto) 8.9 H (2.0-8.3) X10*3/uL Absolute Nucleated RBC 0.000 (0.0-0.012) X10*3/uL Nucleated RBC % (auto) 0.0 (0.0-0.2) /100WBC D-Dimer < 200 NG/ML Hold Blue Top SEE NOTE Sodium 134 L (135-145) mmol/L Potassium 3.8 (3.3-5.1) mmol/L Chloride 101 (96-108) mmol/L Carbon Dioxide 23 (22-29) mmol/L Anion Gap 14 (12-20) BUN 28 H D (9-16) mg/dL Creatinine 1.22 (0.5-1.4) mg/dL Estim Creat Clear Calc 75.1 Estimated GFR 46 Random Glucose 212 H (60-115) mg/dL Calcium 9.3 (8.4-10.2) mg/dL Troponin I High Sens (<3.5-17.0) ng/L COVID-19 (VANESSA) (Negative) COVID-19 Clin Com 09/08/20 09/08/20 Range/Units 23:51 23:57 WBC (4.8-10.8) X10*3/uL RBC (4.20-5.50) X10*6/uL Hgb (12.0-16.0) g/dl Hct (37-47) % MCV (80-98) fL MCH (27.0-33.0) pg MCHC (31.0-35.0) g/dl RDW (11.0-16.0) % Plt Count (160-400) X10*3/uL MPV (9.4-12.3) fL Immature Gran % (Auto) (0.0-0.4) % Neut % (Auto) (45-73) % Lymph % (Auto) (20-40) % [place] % (Auto) (2-11) % Eos % (Auto) (0-4) % Baso % (Auto) (0-2) % Lymph # (Auto) (1.2-4.9) X10*3/uL [place] # (Auto) (0.1-1.2) X10*3/uL Eos # (Auto) (0.0-0.4) X10*3/uL Baso # (Auto) (0.0-0.2) X10*3/uL Abs Immat Gran (auto) (0.00-0.03) X10*3/uL Absolute Neuts (auto) (2.0-8.3) X10*3/uL Absolute Nucleated RBC (0.0-0.012) X10*3/uL Nucleated RBC % (auto) (0.0-0.2) /100WBC D-Dimer NG/ML Hold Blue Top Sodium (135-145) mmol/L Potassium (3.3-5.1) mmol/L Chloride (96-108) mmol/L Carbon Dioxide (22-29) mmol/L Anion Gap (12-20) BUN (9-16) mg/dL Creatinine (0.5-1.4) mg/dL Estim Creat Clear Calc Estimated GFR Random Glucose (60-115) mg/dL Calcium (8.4-10.2) mg/dL Troponin I High Sens < 3.5 (<3.5-17.0) ng/L COVID-19 (VANESSA) Negative (Negative) COVID-19 Clin Com See Note ECG Data ECG #1: Interpretation: 2313: Normal sinus rhythm with a rate of 92 normal OK, QRS and QTC intervals, low voltage in the limb leads, no ST segment elevation, no ST segment depression, no old EKG for comparison. 0226: Normal sinus rhythm with rate of 83, normal OK interval, slightly prolonged QRS of 100 milliseconds, normal QTC, no ST segment elevation or depression, no significant T-wave abnormalities, compared to EKG 1. There are some subtle changes which I believe are secondary to lead placement. Discharge Plan Discharge Clinical Impression: Acute costochondritis Patient Disposition: Home, Self-Care Instructions: Costochondritis (ED) Additional Instructions: Your laboratory evaluation was unremarkable. Your chest x-ray was unremarkable. Your EKG at this time was unremarkable. At this time I believe that your chest pain is due to inflammation of the muscles and joints of your chest (costochondritis). Take ibuprofen 200 mg pills, 3 pills every 6 hours as needed for pain. Take Tylenol (acetaminophen) 500 mg pills, 2 pills every 4 to 6 hours as needed for pain. Follow-up with your doctor in 2 days. Please return to the emergency department if your symptoms get worse or if you develop any symptoms that are concerning to you. Prescriptions: No Action furosemide 20 mg tablet 20 mg PO DAILY Qty: 30 RF: 5 lisinopril 5 mg tablet 5 mg PO DAILY Qty: 90 RF: 2 bisacodyl [Dulcolax (bisacodyl)] 5 mg tablet,delayed release (DR/EC) 10 mg PO BEDTIME 1 Days Qty: 2 RF: 0 polyethylene glycol 3350 [Miralax] 17 gram/dose powder See Rx Instructions PO DAILY 1 Days Qty: 238 RF: 0 lubiprostone [Amitiza] 8 mcg capsule 8 mcg PO BID Qty: 60 RF: 1 omeprazole 20 mg capsule,delayed release(DR/EC) 20 mg PO BID 30 Days Qty: 60 RF: 3 gabapentin 100 mg capsule 100 mg PO TID Qty: 270 RF: 0 lorazepam 0.5 mg tablet 0.5 mg PO TID PRN (Reason: Anxiety) 30 Days Qty: 90 RF: 0 tramadol 50 mg tablet See Rx Instructions PO BID PRN (Reason: pain) 28 Days Qty: 100 RF: 0 atorvastatin 40 mg tablet 40 mg PO DAILY 90 Days Qty: 90 RF: 1 metoclopramide HCl 10 mg tablet 10 mg PO .COMPLEX PRN (Reason: nausea and vomiting) 30 Days Qty: 90 RF: 3 fluconazole 150 mg tablet 150 mg PO DAILY 1 Days Qty: 1 RF: 0 citalopram 10 mg tablet 1 tab PO DAILY RF: 0 pramipexole 1 mg tablet 1 mg PO BID RF: 0 aspirin 81 mg tablet,delayed release (DR/EC) 81 mg PO DAILY RF: 0 Trulicity 1.5 mg/0.5 mL pen injector 1.5 mg subcut QWEEK RF: 0 budesonide-formoterol [Symbicort] 160-4.5 mcg/actuation HFA aerosol inhaler 2 puff inhalation BID RF: 0 spironolactone 50 mg tablet 50 mg PO DAILY RF: 0 metoprolol succinate 25 mg tablet extended release 24 hr 25 mg PO DAILY RF: 0 insulin regular hum U-500 conc 500 unit/mL (3 mL) insulin pen See Rx Instructions subcut TIDWMEAL RF: 0 ondansetron 4 mg tablet,disintegrating 4 mg PO Q6-8H PRN (Reason: nausea and vomiting) 10 Days Qty: 40 RF: 0 fluticasone propionate 50 mcg/actuation spray,suspension 1 spray intranasal DAILY RF: 0 Breo Ellipta 100-25 mcg/dose blister with device 1 inh inhalation DAILY RF: 0
[2020-09-09] MEDS: Ketorolac Tromethamine 30 MG/ML VIAL IVPUSH (00:31)
[2020-09-09] MEDS: ondansetron HCL 4 MG/2 ML VIAL IVPUSH (00:31)
[2020-09-09 00:57] LABS: D Dimer < 200 NG/ML
[2020-09-09 02:00] VITALS: BP 98/56; PULSE 82; RESP 16; TEMP 36.9; O2SAT 97
--- NOTE | 2020-09-09 02:21 | ECG_ITS ---
Test Reason : CHEST PAIN Blood Pressure : / mmHG Vent. Rate : 083 BPM Atrial Rate : 083 BPM P-R Int : 164 ms QRS Dur : 100 ms QT Int : 384 ms P-R-T Axes : 019 010 043 degrees QTc Int : 451 ms Normal sinus rhythm Normal ECG When compared with ECG of 08-SEP-2020 23:13, Nonspecific T wave abnormality, improved in Inferior leads Referred By: Guanakito Kendrick Electronically Signed By:Samir Steve
[2020-09-09] MEDS: oxyCODONE HCl Immed Release 5 MG TABLET 10 MG PO (03:04)
== END 2020-09-09 03:10 | disposition home or self-care (01) ==
PROVIDERS: Internal Medicine; Emergency Provider Emergency Medicine Emergency Medical Services; PCP Internal Medicine
DX: M94.0 Chondrocostal junction syndrome [Tietze] (principal); Z20.822 Contact with and (suspected) exposure to COVID-19; I10 Essential (primary) hypertension; E11.9 Type 2 diabetes mellitus without complications; K21.9 Gastro-esophageal reflux disease without esophagitis; K74.60 Unspecified cirrhosis of liver; E78.5 Hyperlipidemia, unspecified; Z79.82 Long term (current) use of aspirin; Z79.899 Other long term (current) drug therapy; Z79.4 Long term (current) use of insulin; Z79.02 Long term (current) use of antithrombotics/antiplatelets
CPT/HCPCS: 36415; 71045; 80048; 84484; 85025; 85379; 87635; 93005; 96374; 96375; 99284; J1885; J2405

== ENCOUNTER → 2020-09-20 14:22 | Outpatient (BNVA) | payer OTHER, SELFPAY | PROVIDERS: PCP Internal Medicine; Referring Provider Internal Medicine; Visit Provider Internal Medicine Gastroenterology | DX: Z13.89 Encounter for screening for other disorder (principal) | CPT/HCPCS: 99212 ==

== ENCOUNTER 2020-09-28 07:59 | Outpatient (REF) | payer OTHER, SELFPAY ==
--- NOTE | ~2020-09-28 | US_ITS ---
EXAMINATION: US ABDOMEN COMPLETE CLINICAL INFORMATION: Abdominal pain. COMPARISON: Previous abdominal ultrasounds most recent March [address] of the abdomen and pelvis November 2019 TECHNIQUE: Real-time imaging of the abdominal viscera. FINDINGS: PANCREAS: Normal. ABDOMINAL AORTA: The proximal, mid, and distal segments are normal in caliber. INFERIOR VENA CAVA: Visualized portions are normal. LIVER: The liver is enlarged. Liver echotexture is increased suggestive of fatty infiltration. There are hypoechoic areas in the peripheral right lobe of the liver adjacent to the gallbladder suggestive of areas of focal fatty sparing.. No focal hepatic lesion. There is no intrahepatic biliary duct dilatation seen. GALLBLADDER: There is a 5 x 3 mm echogenic density adjacent to the gallbladder wall that does not move or shadow suggestive of gallbladder wall polyp. The gallbladder is otherwise unremarkable. COMMON BILE DUCT: Normal in caliber measuring 0.3 cm in diameter. RIGHT KIDNEY: Normal. No hydronephrosis. No renal calculi or focal parenchymal lesions. The kidney measures 10.7 cm in maximum dimension. LEFT KIDNEY: Normal. No hydronephrosis. No renal calculi or focal parenchymal lesions. The kidney measures 11.7 cm in maximum dimension. SPLEEN: Normal. The spleen measures 12.2 cm in maximum dimension. FREE FLUID: None. US/US abdomen complete IMPRESSION: Enlarged echogenic liver probably representing fatty infiltration. Small gallbladder wall polyp.
== END 2020-09-28 08:00 | disposition home or self-care (01) ==
LOC: HO.US 07:59
PROVIDERS: Visit Provider Internal Medicine
DX: R10.9 Unspecified abdominal pain (principal); R11.2 Nausea with vomiting, unspecified
CPT/HCPCS: 76700

== ENCOUNTER 2020-10-29 09:36 | Outpatient (REF) | payer OTHER, SELFPAY ==
--- NOTE | ~2020-10-29 | US_ITS ---
EXAMINATION: US VENOUS ULTRASOUND WITH DOPPLER LOWER EXTREMITY, RIGHT CLINICAL INFORMATION: Pain COMPARISON: None TECHNIQUE: Ultrasound of the deep veins is performed from the hip to the calf with compression sonography and color and pulse Doppler assessment. Spectral analysis with color-flow imaging is performed. FINDINGS: There is normal venous compression and respiratory variation and augmented flow. The visualized common femoral vein, superficial femoral vein, profunda femoral vein, popliteal vein, and the trifurcation region shows no evidence of deep venous thrombosis. There is no significant popliteal fossa cyst. US/US venous duplex LE RT IMPRESSION: No DVT demonstrated in the right lower extremity.
== END 2020-10-29 09:37 | disposition home or self-care (01) ==
LOC: HO.US 09:36
PROVIDERS: PCP Internal Medicine; Visit Provider Internal Medicine
DX: M79.661 Pain in right lower leg (principal); S80.11XS Contusion of right lower leg, sequela; M79.89 Other specified soft tissue disorders
CPT/HCPCS: 93971

== ENCOUNTER 2020-11-26 16:16 | Emergency (ER) | payer OTHER, SELFPAY ==
--- NOTE | ~2020-11-26 | US_ITS ---
EXAMINATION: US ABDOMEN LIMITED CLINICAL INFORMATION: Right upper quadrant pain.. COMPARISON: 09/28/2020 TECHNIQUE: Real-time imaging of the right upper quadrant abdominal viscera. FINDINGS: PANCREAS: Normal. LIVER: The liver is normal in size. The liver contour is normal. There is diffuse increased liver parenchymal echogenicity, consistent with hepatic steatosis. No focal hepatic lesion. There is no intrahepatic biliary duct dilatation seen. GALLBLADDER: Gallbladder wall polyps are noted. The largest measures 0.5 cm. The gallbladder is physiologically distended without evidence of stones, sludge, wall thickening or pericholecystic fluid. COMMON BILE DUCT: Normal in caliber measuring 0.5 cm in diameter. RIGHT KIDNEY: Normal. No hydronephrosis. No renal calculi or focal parenchymal lesions. The kidney measures 12 cm in maximum dimension. FREE FLUID: None. US/US abdomen limited IMPRESSION: No acute abnormality. Hepatic steatosis. Small gallbladder wall polyps measuring up to 0.5 cm. These are seen on multiple prior studies.
[2020-11-26 17:00] VITALS: BP 144/72; PULSE 92; RESP 16; TEMP 36.4; O2SAT 96; BMI 51.3
[2020-11-26 18:26] LABS: MANUAL DIFF FLAG NO
[2020-11-26 18:45] LABS: Basophils Absolute Auto 0.1 X10*3/uL (0.0-0.2); Basophils Percent Auto 0.5 % (0-2); Eosinophils Absolute Auto 0.2 X10*3/uL (0.0-0.4); Hematocrit 40.5 % (37-47); Hemoglobin 13.4 g/dl (12.0-16.0); Imm Gran Abs Auto 0.11 X10*3/uL (0.00-0.03); Imm Gran Pct Auto 0.9 % (0.0-0.4); Lymphocytes Absolute Auto 2.3 X10*3/uL (1.2-4.9); Lymphocytes Percent Auto 19.4 % (20-40); Mean Corpuscular HGB Conc 33.1 g/dl (31.0-35.0); Mean Corpuscular Volume 84.7 fL (80-98); Mean Platelet Volume 11.9 fL (9.4-12.3); Monocytes Absolute Auto 0.7 X10*3/uL (0.1-1.2); Monocytes Percent Auto 5.9 % (2-11); Neutrophils Absolute Auto 8.5 X10*3/uL (2.0-8.3); Neutrophils Percent Auto 71.3 % (45-73); Platelet Count 292 X10*3/uL (160-400); Red Blood Count 4.78 X10*6/uL (4.20-5.50); Red Cell Distribution Width 12.9 % (11.0-16.0); White Blood Count 11.9 X10*3/uL (4.8-10.8)
[2020-11-26 19:00] LABS: Anion Gap 16 (12-20); Blood Urea Nitrogen 30 mg/dL (9-16); Calcium 10.8 mg/dL (8.4-10.2); Carbon Dioxide 25 mmol/L (22-29); Chloride 92 mmol/L (96-108); Creatinine Clr Calc Pharmacy 54.1; Estimated Glomerular Filt Rate 33; Glucose Random 657 mg/dL (60-115); Lipase 44 U/L (8-78); Potassium 5.1 mmol/L (3.3-5.1); Sodium 128 mmol/L (135-145)
[2020-11-26 19:49] VITALS: BP 127/83; PULSE 100; RESP 16; O2SAT 100
[2020-11-26 19:54] LABS: Glucose Urine UA >=1000 MG/DL (NEG); Leukocyte Esterase Urine NEG (NEG); Nitrite Urine NEG (NEG); Urine Blood NEG (NEG); Urine Ketones 15 MG/DL (NEG); Urine Protein NEG (NEG-TRACE)
[2020-11-26 19:57] LABS: Appearance Urine CLEAR; Color Urine YELLOW
[2020-11-26 20:01] LABS: RBC Urine 0 /HPF (0); Squamous Epithelial Cell Urine 2+ /LPF; WBC Urine 0-2 /HPF (0-4)
[2020-11-26 20:02] LABS: Bacteria Urine 1+ /LPF
[2020-11-26] MEDS: Insulin Regular, Human 100 UNIT/ML 3 ML VIAL 20 UNIT IVPUSH (20:06)
[2020-11-26] MEDS: Insulin Glargine,Hum.rec.anlog 100 UNIT/ML 10 ML VIAL 40 UNIT SUBCUT (20:06)
[2020-11-26] MEDS: 0.9 % Sodium Chloride 1,000 ML 999 ML IVCONT ×2 (20:07→20:26)
[2020-11-26 20:11] LABS: VBG Base Excess -2.6 mmol/L; VBG HCO3 22 mmol/L (22-26); VBG pCO2 38 mmHg; VBG pH 7.36 (7.32-7.43); VBG pO2 35 mmHg
[2020-11-26 20:11] LABS: Venous Blood Gas Refer to POC result
[2020-11-26 20:25] LABS: Acetone, serum QL Negative (Negative)
[2020-11-26 20:43] LABS: Glucose, Whole Blood 516 mg/dL (60-115)
[2020-11-26 20:43] LABS: Glucose, Whole Blood 552 mg/dL (60-115)
[2020-11-26 21:12] LABS: Glucose, Whole Blood 476 mg/dL (60-115)
[2020-11-26 21:44] LABS: Glucose, Whole Blood 433 mg/dL (60-115)
[2020-11-26 21:50] VITALS: BP 134/68; PULSE 95; RESP 16; TEMP 36.4; O2SAT 100
[2020-11-26] MEDS: Insulin Lispro 100 UNIT/ML 3 ML VIAL 20 UNIT SUBCUT (21:51)
[2020-11-26 21:53] VITALS: BP 102/55
--- NOTE | 2020-11-26 22:09 | ED.NAVMDI ---
HPI - Nausea/Vomiting/Diarrhea General Chief complaint: Nausea/Vomiting/Diarrhea Stated complaint: n/v abd pain Time Seen by Provider: 11/26/20 19:52 Related Data Home Medications Medication Instructions Recorded Confirmed aspirin 81 mg tablet,delayed 81 mg PO DAILY 03/04/20 10/31/20 release budesonide-formoterol HFA 160 2 puff INHALATION BID 03/04/20 10/31/20 mcg-4.5 mcg/actuation aerosol inhaler dulaglutide 1.5 mg/0.5 mL 1.5 mg SUBCUT QWEEK ml 03/04/20 10/31/20 subcutaneous pen injector insulin regular hum U-500 conc See Rx Instructions SUBCUT 03/04/20 10/31/20 TIDWMEAL ml metoprolol succinate 25 mg 25 mg PO DAILY 03/04/20 10/31/20 tablet,extended release 24 hr pramipexole 1 mg tablet 1 mg PO TID tab 03/04/20 10/31/20 spironolactone 50 mg tablet 50 mg PO BID tab 03/04/20 10/31/20 fluticasone furoate 100 1 inh INHALATION DAILY 07/06/20 10/31/20 mcg-vilanterol 25 mcg/dose inhalation powder fluticasone propionate 50 1 spray INTRANASAL DAILY 07/06/20 10/31/20 mcg/actuation nasal spray,suspension citalopram 1 tab PO DAILY 07/12/20 10/31/20 atorvastatin 40 mg PO BEDTIME 10/06/20 10/31/20 furosemide 60 mg PO BID 10/06/20 10/31/20 Previous Rx's Medication Instructions Recorded lisinopril 5 mg tablet 5 mg PO DAILY #90 tab 06/16/20 bisacodyl 5 mg tablet,delayed 10 mg PO BEDTIME 1 Days #2 tab 06/28/20 release polyethylene glycol 3350 17 See Rx Instructions PO DAILY 1 06/28/20 gram/dose oral powder Days #238 g gabapentin 100 mg capsule 100 mg PO TID #270 cap 08/24/20 metoclopramide HCl 10 mg tablet 10 mg PO .COMPLEX PRN 30 Days #90 08/27/20 tab ondansetron 4 mg disintegrating 4 mg PO Q6-8H PRN 10 Days #40 tab 08/27/20 tablet tramadol 50 mg tablet See Rx Instructions .ROUTE 10/26/20 .COMPLEX PRN 25 Days #100 tab Amitiza 8 mcg capsule 8 mcg PO BID 30 Days #60 cap NS 11/19/20 lorazepam 0.5 mg tablet 0.5 mg PO TID PRN 30 Days #90 tab 11/19/20 omeprazole 20 mg capsule,delayed 20 mg PO BID 30 Days #60 cap 11/19/20 release Allergies Allergy/AdvReac Type Severity Reaction Status Date / Time empagliflozin Allergy Intermediate Rash Verified 10/29/20 09:05 [From JARDIANCE] adhesive tape Allergy Rash Verified 10/29/20 09:05 metformin [METFORMIN] AdvReac Intermediate Rash, GI Verified 10/29/20 09:05 upset sitagliptin [From JANUVIA] AdvReac Unknown Rash,nausea, Verified 10/29/20 09:05 hypoglycemia [facility] Past Medical History Medical History Abdominal pain Anxiety Asthma Asthma Atypical chest pain Benign essential hypertension Body mass index [BMI] 50.0-59.9, adult Chronic constipation Cirrhosis of liver without ascites Depression Diabetes mellitus Diastolic dysfunction Dyslipidemia Dyspnea on effort Fatigue Fatty pancreas Gastroparesis GERD (gastroesophageal reflux disease) HTN (hypertension) Insomnia Liver cirrhosis Lumbar degenerative disc disease Morbid (severe) obesity due to excess calories Morbid obesity with BMI of 50.0-59.9, adult Morbid obesity with BMI of 50.0-59.9, adult Nausea and vomiting Neuropathic pain of both feet Obstructive sleep apnea On beta kelsey at home Pain and swelling of right lower extremity Pars defect of lumbar spine Pedal edema Periodic limb movement disorder Postlaminectomy syndrome, lumbar Pure hypercholesterolemia Rectal bleeding Sleep apnea with use of continuous positive airway pressure (CPAP) Spondylolisthesis, lumbar region Spondylosis of lumbar spine Superficial bruising of lower leg Type 2 diabetes mellitus with diabetic autonomic (poly)neuropathy Surgical History H/O cardiac catheterization (~12/14/17) H/O section History of appendectomy History of esophagogastroduodenoscopy (EGD) History of laryngoscopy (~02/10/19) History of lumbar discectomy History of surgery History of ventral hernia repair (~2008) Family History Family History Father Diabetes mellitus Hypertension Mother Diabetes mellitus Hypertension Uterine cancer History of heart attack Social History Social History Housing: Apartment Are you a primary care transitions manager to a significant other at home: No Do you presently have visiting nurse or other home services: Yes (Home Health Aide, VNA) Alcohol intake: never Patient Tobacco Use Status: Former Tobacco user Tobacco use type: Cigarette Second Hand Smoke Exposure: No Advance Directives: No service: No Current occupational status: disabled Physical Exam Vital Signs: Vital Signs: Last Vital Signs Temp 97.5 F 11/26/20 21:50 Pulse 95 11/26/20 21:50 Resp 16 11/26/20 21:50 BP 102/55 L 11/26/20 21:53 Pulse Ox 100 11/26/20 21:50 Body Mass Index 51.3 MDM - Nausea/Vomiting/Diarrhea Lab Data Result diagrams: 11/26/20 18:14 11/26/20 18:14 Labs: Lab Results 11/26/20 11/26/20 11/26/20 Range/Units 18:14 18:14 19:48 WBC 11.9 H (4.8-10.8) X10*3/uL RBC 4.78 (4.20-5.50) X10*6/uL Hgb 13.4 (12.0-16.0) g/dl Hct 40.5 (37-47) % MCV 84.7 (80-98) fL MCH 28.0 (27.0-33.0) pg MCHC 33.1 (31.0-35.0) g/dl RDW 12.9 (11.0-16.0) % Plt Count 292 (160-400) X10*3/uL MPV 11.9 (9.4-12.3) fL Immature Gran % (Auto) 0.9 H (0.0-0.4) % Neut % (Auto) 71.3 (45-73) % Lymph % (Auto) 19.4 L (20-40) % [place] % (Auto) 5.9 (2-11) % Eos % (Auto) 2.0 (0-4) % Baso % (Auto) 0.5 (0-2) % Lymph # (Auto) 2.3 (1.2-4.9) X10*3/uL [place] # (Auto) 0.7 (0.1-1.2) X10*3/uL Eos # (Auto) 0.2 (0.0-0.4) X10*3/uL Baso # (Auto) 0.1 (0.0-0.2) X10*3/uL Abs Immat Gran (auto) 0.11 H (0.00-0.03) X10*3/uL Absolute Neuts (auto) 8.5 H (2.0-8.3) X10*3/uL Absolute Nucleated RBC 0.000 (0.0-0.012) X10*3/uL Nucleated RBC % (auto) 0.0 (0.0-0.2) /100WBC VBG pH (7.32-7.43) VBG pCO2 mmHg VBG pO2 mmHg VBG HCO3 (22-26) mmol/L VBG O2 Saturation % VBG Base Excess mmol/L Sodium 128 L (135-145) mmol/L Potassium 5.1 D (3.3-5.1) mmol/L Chloride 92 L (96-108) mmol/L Carbon Dioxide 25 (22-29) mmol/L Anion Gap 16 (12-20) BUN 30 H (9-16) mg/dL Creatinine 1.63 H (0.5-1.4) mg/dL Estim Creat Clear Calc 54.1 Estimated GFR 33 POC Glucose (60-115) mg/dL Random Glucose 657 H* (60-115) mg/dL Calcium 10.8 H D (8.4-10.2) mg/dL Lipase 44 (8-78) U/L Urine Color YELLOW Urine Appearance CLEAR Urine pH 6.0 (5.0-8.0) Ur Specific Thomas 1.010 (1.005-1.025) Urine Protein NEG (NEG-TRACE) MG/DL Urine Glucose (UA) >=1000 H (NEG) MG/DL Urine Ketones 15 (NEG) MG/DL Urine Blood NEG (NEG) Urine Nitrite NEG (NEG) Ur Leukocyte Esterase NEG (NEG) Urine RBC 0 (0) /HPF Urine WBC 0-2 (0-4) /HPF Ur Squamous Epith Cells 2+ /LPF Urine Bacteria 1+ /LPF Acetone, Qual (Negative) 11/26/20 11/26/20 11/26/20 Range/Units 19:51 20:00 20:02 WBC (4.8-10.8) X10*3/uL RBC (4.20-5.50) X10*6/uL Hgb (12.0-16.0) g/dl Hct (37-47) % MCV (80-98) fL MCH (27.0-33.0) pg MCHC (31.0-35.0) g/dl RDW (11.0-16.0) % Plt Count (160-400) X10*3/uL MPV (9.4-12.3) fL Immature Gran % (Auto) (0.0-0.4) % Neut % (Auto) (45-73) % Lymph % (Auto) (20-40) % [place] % (Auto) (2-11) % Eos % (Auto) (0-4) % Baso % (Auto) (0-2) % Lymph # (Auto) (1.2-4.9) X10*3/uL [place] # (Auto) (0.1-1.2) X10*3/uL Eos # (Auto) (0.0-0.4) X10*3/uL Baso # (Auto) (0.0-0.2) X10*3/uL Abs Immat Gran (auto) (0.00-0.03) X10*3/uL Absolute Neuts (auto) (2.0-8.3) X10*3/uL Absolute Nucleated RBC (0.0-0.012) X10*3/uL Nucleated RBC % (auto) (0.0-0.2) /100WBC VBG pH 7.36 (7.32-7.43) VBG pCO2 38 mmHg VBG pO2 35 mmHg VBG HCO3 22 (22-26) mmol/L VBG O2 Saturation 45.0 % VBG Base Excess -2.6 mmol/L Sodium (135-145) mmol/L Potassium (3.3-5.1) mmol/L Chloride (96-108) mmol/L Carbon Dioxide (22-29) mmol/L Anion Gap (12-20) BUN (9-16) mg/dL Creatinine (0.5-1.4) mg/dL Estim Creat Clear Calc Estimated GFR POC Glucose 552 H* (60-115) mg/dL Random Glucose (60-115) mg/dL Calcium (8.4-10.2) mg/dL Lipase (8-78) U/L Urine Color Urine Appearance Urine pH (5.0-8.0) Ur Specific Thomas (1.005-1.025) Urine Protein (NEG-TRACE) MG/DL Urine Glucose (UA) (NEG) MG/DL Urine Ketones (NEG) MG/DL Urine Blood (NEG) Urine Nitrite (NEG) Ur Leukocyte Esterase (NEG) Urine RBC (0) /HPF Urine WBC (0-4) /HPF Ur Squamous Epith Cells /LPF Urine Bacteria /LPF Acetone, Qual Negative (Negative) 11/26/20 11/26/20 11/26/20 Range/Units 20:39 21:08 21:39 WBC (4.8-10.8) X10*3/uL RBC (4.20-5.50) X10*6/uL Hgb (12.0-16.0) g/dl Hct (37-47) % MCV (80-98) fL MCH (27.0-33.0) pg MCHC (31.0-35.0) g/dl RDW (11.0-16.0) % Plt Count (160-400) X10*3/uL MPV (9.4-12.3) fL Immature Gran % (Auto) (0.0-0.4) % Neut % (Auto) (45-73) % Lymph % (Auto) (20-40) % [place] % (Auto) (2-11) % Eos % (Auto) (0-4) % Baso % (Auto) (0-2) % Lymph # (Auto) (1.2-4.9) X10*3/uL [place] # (Auto) (0.1-1.2) X10*3/uL Eos # (Auto) (0.0-0.4) X10*3/uL Baso # (Auto) (0.0-0.2) X10*3/uL Abs Immat Gran (auto) (0.00-0.03) X10*3/uL Absolute Neuts (auto) (2.0-8.3) X10*3/uL Absolute Nucleated RBC (0.0-0.012) X10*3/uL Nucleated RBC % (auto) (0.0-0.2) /100WBC VBG pH (7.32-7.43) VBG pCO2 mmHg VBG pO2 mmHg VBG HCO3 (22-26) mmol/L VBG O2 Saturation % VBG Base Excess mmol/L Sodium (135-145) mmol/L Potassium (3.3-5.1) mmol/L Chloride (96-108) mmol/L Carbon Dioxide (22-29) mmol/L Anion Gap (12-20) BUN (9-16) mg/dL Creatinine (0.5-1.4) mg/dL Estim Creat Clear Calc Estimated GFR POC Glucose 516 H* 476 H* 433 H* (60-115) mg/dL Random Glucose (60-115) mg/dL Calcium (8.4-10.2) mg/dL Lipase (8-78) U/L Urine Color Urine Appearance Urine pH (5.0-8.0) Ur Specific Thomas (1.005-1.025) Urine Protein (NEG-TRACE) MG/DL Urine Glucose (UA) (NEG) MG/DL Urine Ketones (NEG) MG/DL Urine Blood (NEG) Urine Nitrite (NEG) Ur Leukocyte Esterase (NEG) Urine RBC (0) /HPF Urine WBC (0-4) /HPF Ur Squamous Epith Cells /LPF Urine Bacteria /LPF Acetone, Qual (Negative) Discharge Plan Discharge Prescriptions: No Action lisinopril 5 mg tablet 5 mg PO DAILY Qty: 90 RF: 2 bisacodyl [Dulcolax (bisacodyl)] 5 mg tablet,delayed release (DR/EC) 10 mg PO BEDTIME 1 Days Qty: 2 RF: 0 polyethylene glycol 3350 [Miralax] 17 gram/dose powder See Rx Instructions PO DAILY 1 Days Qty: 238 RF: 0 gabapentin 100 mg capsule 100 mg PO TID Qty: 270 RF: 0 metoclopramide HCl 10 mg tablet 10 mg PO .COMPLEX PRN (Reason: nausea and vomiting) 30 Days Qty: 90 RF: 3 tramadol 50 mg tablet See Rx Instructions .ROUTE .COMPLEX PRN (Reason: pain) 25 Days Qty: 100 RF: 1 lorazepam 0.5 mg tablet 0.5 mg PO TID PRN (Reason: Anxiety) 30 Days Qty: 90 RF: 0 lubiprostone [Amitiza] 8 mcg capsule 8 mcg PO BID 30 Days Qty: 60 RF: 3 omeprazole 20 mg capsule,delayed release(DR/EC) 20 mg PO BID 30 Days Qty: 60 RF: 3 citalopram 10 mg tablet 1 tab PO DAILY RF: 0 atorvastatin 40 mg tablet 40 mg PO BEDTIME RF: 0 furosemide 20 mg tablet 60 mg PO BID RF: 0 pramipexole 1 mg tablet 1 mg PO TID RF: 0 aspirin 81 mg tablet,delayed release (DR/EC) 81 mg PO DAILY RF: 0 Trulicity 1.5 mg/0.5 mL pen injector 1.5 mg subcut QWEEK RF: 0 budesonide-formoterol [Symbicort] 160-4.5 mcg/actuation HFA aerosol inhaler 2 puff inhalation BID RF: 0 spironolactone 50 mg tablet 50 mg PO BID RF: 0 metoprolol succinate 25 mg tablet extended release 24 hr 25 mg PO DAILY RF: 0 insulin regular hum U-500 conc 500 unit/mL (3 mL) insulin pen See Rx Instructions subcut TIDWMEAL RF: 0 ondansetron 4 mg tablet,disintegrating 4 mg PO Q6-8H PRN (Reason: nausea and vomiting) 10 Days Qty: 40 RF: 0 fluticasone propionate 50 mcg/actuation spray,suspension 1 spray intranasal DAILY RF: 0 Breo Ellipta 100-25 mcg/dose blister with device 1 inh inhalation DAILY RF: 0
[2020-11-26 22:47] LABS: Alanine Aminotransferase 30 U/L (0-31); Albumin Level 4.4 g/dL (3.5-5.0); Alkaline Phosphatase 110 U/L (39-117); Aspartate Amino Transferase 22 U/L (5-31); Bilirubin Direct 0.4 mg/dL (0.0-0.5); Bilirubin Total 0.9 mg/dL (0.0-1.0); Total Protein 8.1 g/dL (6.5-8.0)
[2020-11-26 22:51] LABS: Glucose, Whole Blood 432 mg/dL (60-115)
--- NOTE | 2020-11-26 22:52 | ED_ITS ---
HPI - Nausea/Vomiting/Diarrhea General Chief complaint: Nausea/Vomiting/Diarrhea Stated complaint: n/v abd pain Time Seen by Provider: 11/26/20 19:52 Source: patient Mode of arrival: ambulatory Limitations: no limitations History of Present Illness HPI Narrative: Patient diabetic on heavy doses of Humalog insulin secondary to insulin resistance take Humulin heart regular 100 units before breakfast 50 in the lunch and 100 with dinner which she not taking it for last 3 days as she does not have any insulin at home. Complaining of RUQ pain with vomiting for last 2 days unable take anything p.o.. Patient had ultrasound done 10/08 which showed small gallbladder polyp without any stone. Patient denied any fever or chills patient's blood sugar was 657 on arrival Related Data Home Medications Medication Instructions Recorded Confirmed aspirin 81 mg tablet,delayed 81 mg PO DAILY 03/04/20 10/31/20 release budesonide-formoterol HFA 160 2 puff INHALATION BID 03/04/20 10/31/20 mcg-4.5 mcg/actuation aerosol inhaler dulaglutide 1.5 mg/0.5 mL 1.5 mg SUBCUT QWEEK ml 03/04/20 10/31/20 subcutaneous pen injector insulin regular hum U-500 conc See Rx Instructions SUBCUT 03/04/20 10/31/20 TIDWMEAL ml metoprolol succinate 25 mg 25 mg PO DAILY 03/04/20 10/31/20 tablet,extended release 24 hr pramipexole 1 mg tablet 1 mg PO TID tab 03/04/20 10/31/20 spironolactone 50 mg tablet 50 mg PO BID tab 03/04/20 10/31/20 fluticasone furoate 100 1 inh INHALATION DAILY 07/06/20 10/31/20 mcg-vilanterol 25 mcg/dose inhalation powder fluticasone propionate 50 1 spray INTRANASAL DAILY 07/06/20 10/31/20 mcg/actuation nasal spray,suspension citalopram 1 tab PO DAILY 07/12/20 10/31/20 atorvastatin 40 mg PO BEDTIME 10/06/20 10/31/20 furosemide 60 mg PO BID 10/06/20 10/31/20 Previous Rx's Medication Instructions Recorded lisinopril 5 mg tablet 5 mg PO DAILY #90 tab 06/16/20 bisacodyl 5 mg tablet,delayed 10 mg PO BEDTIME 1 Days #2 tab 06/28/20 release polyethylene glycol 3350 17 See Rx Instructions PO DAILY 1 06/28/20 gram/dose oral powder Days #238 g gabapentin 100 mg capsule 100 mg PO TID #270 cap 08/24/20 metoclopramide HCl 10 mg tablet 10 mg PO .COMPLEX PRN 30 Days #90 08/27/20 tab ondansetron 4 mg disintegrating 4 mg PO Q6-8H PRN 10 Days #40 tab 08/27/20 tablet tramadol 50 mg tablet See Rx Instructions .ROUTE 10/26/20 .COMPLEX PRN 25 Days #100 tab Amitiza 8 mcg capsule 8 mcg PO BID 30 Days #60 cap NS 11/19/20 lorazepam 0.5 mg tablet 0.5 mg PO TID PRN 30 Days #90 tab 11/19/20 omeprazole 20 mg capsule,delayed 20 mg PO BID 30 Days #60 cap 11/19/20 release dicyclomine 20 mg PO QID PRN #20 tab 11/27/20 ondansetron 4 mg PO Q6-8H PRN #14 tab 11/27/20 Allergies Allergy/AdvReac Type Severity Reaction Status Date / Time empagliflozin Allergy Intermediate Rash Verified 10/29/20 09:05 [From JARDIANCE] adhesive tape Allergy Rash Verified 10/29/20 09:05 metformin [METFORMIN] AdvReac Intermediate Rash, GI Verified 10/29/20 09:05 upset sitagliptin [From JANUVIA] AdvReac Unknown Rash,nausea, Verified 10/29/20 09:05 hypoglycemia Review of Systems Review of Systems: Constitutional : No Weight loss, No Fever, No Chills ENT/Mouth : No sore throat, No Rhinorrhea Eyes: No Eye Pain, No Swelling Cardiovascular : No Chest Pain, no palpitations Respiratory : No Cough, No Sputum, no shortness of breath Gastrointestinal : + Nausea, + Vomiting, No Diarrhea, ++ abdominal Pain, no black stools Genitourinary : No Dysuria, No Urinary Frequency Musculoskeletal : No joint pain, No Myalgias, No Joint Swelling Skin : No Skin Lesions, No rash Neuro : No Weakness, No Numbness, No Dizziness, No Headache Psych : No Anxiety/Panic, No Depression Heme/Lymph: No Bruising, No Lymphadenopathy Endocrine : No Polyuria, No Polydipsia All other systems reviewed and are negative [facility] Past Medical History Medical History Abdominal pain Anxiety Asthma Asthma Atypical chest pain Benign essential hypertension Body mass index [BMI] 50.0-59.9, adult Chronic constipation Cirrhosis of liver without ascites Depression Diabetes mellitus Diastolic dysfunction Dyslipidemia Dyspnea on effort Fatigue Fatty pancreas Gastroparesis GERD (gastroesophageal reflux disease) HTN (hypertension) Insomnia Liver cirrhosis Lumbar degenerative disc disease Morbid (severe) obesity due to excess calories Morbid obesity with BMI of 50.0-59.9, adult Morbid obesity with BMI of 50.0-59.9, adult Nausea and vomiting Neuropathic pain of both feet Obstructive sleep apnea On beta kelsey at home Pain and swelling of right lower extremity Pars defect of lumbar spine Pedal edema Periodic limb movement disorder Postlaminectomy syndrome, lumbar Pure hypercholesterolemia Rectal bleeding Sleep apnea with use of continuous positive airway pressure (CPAP) Spondylolisthesis, lumbar region Spondylosis of lumbar spine Superficial bruising of lower leg Type 2 diabetes mellitus with diabetic autonomic (poly)neuropathy Surgical History H/O cardiac catheterization (~12/14/17) H/O section History of appendectomy History of esophagogastroduodenoscopy (EGD) History of laryngoscopy (~02/10/19) History of lumbar discectomy History of surgery History of ventral hernia repair (~2008) Family History Family History Father Diabetes mellitus Hypertension Mother Diabetes mellitus Hypertension Uterine cancer History of heart attack Social History Social History Housing: Apartment Are you a primary manager urgent care to a significant other at home: No Do you presently have visiting nurse or other home services: Yes (Home Health Aide, VNA) Alcohol intake: never Patient Tobacco Use Status: Former Tobacco user Tobacco use type: Cigarette Second Hand Smoke Exposure: No Advance Directives: No service: No Current occupational status: disabled Physical Exam Vital Signs: Vital Signs: Last Vital Signs Temp 97.5 F 11/26/20 21:50 Pulse 95 11/26/20 21:50 Resp 16 11/26/20 21:50 BP 102/55 L 11/26/20 21:53 Pulse Ox 100 11/26/20 21:50 Body Mass Index 51.3 Appearance: Alert. Oriented X3. mild distress++ ENT: Pharynx normal. Oral Mucosa moist Neck: Normal inspection. Neck supple. CVS: Normal heart rate and rhythm. Pulses normal. Respiratory: No respiratory distress. Equal air entry bilateral, no wheezing/rales/rhonchi Abdomen: Sof, tenderness epigastric and right upper quadrant no rebound tenderness or guarding, Bowel sounds are present, no mass palpable, no CVA tenderness Skin: Skin warm and dry. Normal skin color. Normal skin turgor. Extremities: No lower extremity edema. No calf tenderness Neuro: Oriented X 3. No motor deficit. No sensory deficit.No cerebellar signs , cranial nerves II-XII intact MDM - Nausea/Vomiting/Diarrhea MDM Narrative Medical decision making narrative: Patient non ketotic hypoglycemia secondary to not taking her insulin which is supposed to take very heavy does. Workup is negative for any acute pathology ultrasound of gallbladder was done because of the cast gallbladder polyp which is same size without any obstruction cholecystitis ,patient is feeling better now will discharge patient home POC now is 297 Lab Data Attestation: I reviewed the patient's lab results. Result diagrams: 11/26/20 18:14 11/26/20 18:14 Labs: Lab Results 11/26/20 11/26/20 11/26/20 Range/Units 18:14 18:14 19:48 WBC 11.9 H (4.8-10.8) X10*3/uL RBC 4.78 (4.20-5.50) X10*6/uL Hgb 13.4 (12.0-16.0) g/dl Hct 40.5 (37-47) % MCV 84.7 (80-98) fL MCH 28.0 (27.0-33.0) pg MCHC 33.1 (31.0-35.0) g/dl RDW 12.9 (11.0-16.0) % Plt Count 292 (160-400) X10*3/uL MPV 11.9 (9.4-12.3) fL Immature Gran % (Auto) 0.9 H (0.0-0.4) % Neut % (Auto) 71.3 (45-73) % Lymph % (Auto) 19.4 L (20-40) % [place] % (Auto) 5.9 (2-11) % Eos % (Auto) 2.0 (0-4) % Baso % (Auto) 0.5 (0-2) % Lymph # (Auto) 2.3 (1.2-4.9) X10*3/uL [place] # (Auto) 0.7 (0.1-1.2) X10*3/uL Eos # (Auto) 0.2 (0.0-0.4) X10*3/uL Baso # (Auto) 0.1 (0.0-0.2) X10*3/uL Abs Immat Gran (auto) 0.11 H (0.00-0.03) X10*3/uL Absolute Neuts (auto) 8.5 H (2.0-8.3) X10*3/uL Absolute Nucleated RBC 0.000 (0.0-0.012) X10*3/uL Nucleated RBC % (auto) 0.0 (0.0-0.2) /100WBC VBG pH (7.32-7.43) VBG pCO2 mmHg VBG pO2 mmHg VBG HCO3 (22-26) mmol/L VBG O2 Saturation % VBG Base Excess mmol/L Sodium 128 L (135-145) mmol/L Potassium 5.1 D (3.3-5.1) mmol/L Chloride 92 L (96-108) mmol/L Carbon Dioxide 25 (22-29) mmol/L Anion Gap 16 (12-20) BUN 30 H (9-16) mg/dL Creatinine 1.63 H (0.5-1.4) mg/dL Estim Creat Clear Calc 54.1 Estimated GFR 33 POC Glucose (60-115) mg/dL Random Glucose 657 H* (60-115) mg/dL Calcium 10.8 H D (8.4-10.2) mg/dL Total Bilirubin 0.9 (0.0-1.0) mg/dL Direct Bilirubin 0.4 (0.0-0.5) mg/dL AST 22 (5-31) U/L ALT 30 (0-31) U/L Alkaline Phosphatase 110 (39-117) U/L Total Protein 8.1 H (6.5-8.0) g/dL Albumin 4.4 (3.5-5.0) g/dL Lipase 44 (8-78) U/L Urine Color YELLOW Urine Appearance CLEAR Urine pH 6.0 (5.0-8.0) Ur Specific [place] 1.010 (1.005-1.025) Urine Protein NEG (NEG-TRACE) MG/DL Urine Glucose (UA) >=1000 H (NEG) MG/DL Urine Ketones 15 (NEG) MG/DL Urine Blood NEG (NEG) Urine Nitrite NEG (NEG) Ur Leukocyte Esterase NEG (NEG) Urine RBC 0 (0) /HPF Urine WBC 0-2 (0-4) /HPF Ur Squamous Epith Cells 2+ /LPF Urine Bacteria 1+ /LPF Acetone, Qual (Negative) 11/26/20 11/26/20 11/26/20 Range/Units 19:51 20:00 20:02 WBC (4.8-10.8) X10*3/uL RBC (4.20-5.50) X10*6/uL Hgb (12.0-16.0) g/dl Hct (37-47) % MCV (80-98) fL MCH (27.0-33.0) pg MCHC (31.0-35.0) g/dl RDW (11.0-16.0) % Plt Count (160-400) X10*3/uL MPV (9.4-12.3) fL Immature Gran % (Auto) (0.0-0.4) % Neut % (Auto) (45-73) % Lymph % (Auto) (20-40) % [place] % (Auto) (2-11) % Eos % (Auto) (0-4) % Baso % (Auto) (0-2) % Lymph # (Auto) (1.2-4.9) X10*3/uL [place] # (Auto) (0.1-1.2) X10*3/uL Eos # (Auto) (0.0-0.4) X10*3/uL Baso # (Auto) (0.0-0.2) X10*3/uL Abs Immat Gran (auto) (0.00-0.03) X10*3/uL Absolute Neuts (auto) (2.0-8.3) X10*3/uL Absolute Nucleated RBC (0.0-0.012) X10*3/uL Nucleated RBC % (auto) (0.0-0.2) /100WBC VBG pH 7.36 (7.32-7.43) VBG pCO2 38 mmHg VBG pO2 35 mmHg VBG HCO3 22 (22-26) mmol/L VBG O2 Saturation 45.0 % VBG Base Excess -2.6 mmol/L Sodium (135-145) mmol/L Potassium (3.3-5.1) mmol/L Chloride (96-108) mmol/L Carbon Dioxide (22-29) mmol/L Anion Gap (12-20) BUN (9-16) mg/dL Creatinine (0.5-1.4) mg/dL Estim Creat Clear Calc Estimated GFR POC Glucose 552 H* (60-115) mg/dL Random Glucose (60-115) mg/dL Calcium (8.4-10.2) mg/dL Total Bilirubin (0.0-1.0) mg/dL Direct Bilirubin (0.0-0.5) mg/dL AST (5-31) U/L ALT (0-31) U/L Alkaline Phosphatase (39-117) U/L Total Protein (6.5-8.0) g/dL Albumin (3.5-5.0) g/dL Lipase (8-78) U/L Urine Color Urine Appearance Urine pH (5.0-8.0) Ur Specific [place] (1.005-1.025) Urine Protein (NEG-TRACE) MG/DL Urine Glucose (UA) (NEG) MG/DL Urine Ketones (NEG) MG/DL Urine Blood (NEG) Urine Nitrite (NEG) Ur Leukocyte Esterase (NEG) Urine RBC (0) /HPF Urine WBC (0-4) /HPF Ur Squamous Epith Cells /LPF Urine Bacteria /LPF Acetone, Qual Negative (Negative) 11/26/20 11/26/20 11/26/20 Range/Units 20:39 21:08 21:39 WBC (4.8-10.8) X10*3/uL RBC (4.20-5.50) X10*6/uL Hgb (12.0-16.0) g/dl Hct (37-47) % MCV (80-98) fL MCH (27.0-33.0) pg MCHC (31.0-35.0) g/dl RDW (11.0-16.0) % Plt Count (160-400) X10*3/uL MPV (9.4-12.3) fL Immature Gran % (Auto) (0.0-0.4) % Neut % (Auto) (45-73) % Lymph % (Auto) (20-40) % [place] % (Auto) (2-11) % Eos % (Auto) (0-4) % Baso % (Auto) (0-2) % Lymph # (Auto) (1.2-4.9) X10*3/uL [place] # (Auto) (0.1-1.2) X10*3/uL Eos # (Auto) (0.0-0.4) X10*3/uL Baso # (Auto) (0.0-0.2) X10*3/uL Abs Immat Gran (auto) (0.00-0.03) X10*3/uL Absolute Neuts (auto) (2.0-8.3) X10*3/uL Absolute Nucleated RBC (0.0-0.012) X10*3/uL Nucleated RBC % (auto) (0.0-0.2) /100WBC VBG pH (7.32-7.43) VBG pCO2 mmHg VBG pO2 mmHg VBG HCO3 (22-26) mmol/L VBG O2 Saturation % VBG Base Excess mmol/L Sodium (135-145) mmol/L Potassium (3.3-5.1) mmol/L Chloride (96-108) mmol/L Carbon Dioxide (22-29) mmol/L Anion Gap (12-20) BUN (9-16) mg/dL Creatinine (0.5-1.4) mg/dL Estim Creat Clear Calc Estimated GFR POC Glucose 516 H* 476 H* 433 H* (60-115) mg/dL Random Glucose (60-115) mg/dL Calcium (8.4-10.2) mg/dL Total Bilirubin (0.0-1.0) mg/dL Direct Bilirubin (0.0-0.5) mg/dL AST (5-31) U/L ALT (0-31) U/L Alkaline Phosphatase (39-117) U/L Total Protein (6.5-8.0) g/dL Albumin (3.5-5.0) g/dL Lipase (8-78) U/L Urine Color Urine Appearance Urine pH (5.0-8.0) Ur Specific [place] (1.005-1.025) Urine Protein (NEG-TRACE) MG/DL Urine Glucose (UA) (NEG) MG/DL Urine Ketones (NEG) MG/DL Urine Blood (NEG) Urine Nitrite (NEG) Ur Leukocyte Esterase (NEG) Urine RBC (0) /HPF Urine WBC (0-4) /HPF Ur Squamous Epith Cells /LPF Urine Bacteria /LPF Acetone, Qual (Negative) 11/26/20 11/27/20 Range/Units 22:44 01:14 WBC (4.8-10.8) X10*3/uL RBC (4.20-5.50) X10*6/uL Hgb (12.0-16.0) g/dl Hct (37-47) % MCV (80-98) fL MCH (27.0-33.0) pg MCHC (31.0-35.0) g/dl RDW (11.0-16.0) % Plt Count (160-400) X10*3/uL MPV (9.4-12.3) fL Immature Gran % (Auto) (0.0-0.4) % Neut % (Auto) (45-73) % Lymph % (Auto) (20-40) % [place] % (Auto) (2-11) % Eos % (Auto) (0-4) % Baso % (Auto) (0-2) % Lymph # (Auto) (1.2-4.9) X10*3/uL [place] # (Auto) (0.1-1.2) X10*3/uL Eos # (Auto) (0.0-0.4) X10*3/uL Baso # (Auto) (0.0-0.2) X10*3/uL Abs Immat Gran (auto) (0.00-0.03) X10*3/uL Absolute Neuts (auto) (2.0-8.3) X10*3/uL Absolute Nucleated RBC (0.0-0.012) X10*3/uL Nucleated RBC % (auto) (0.0-0.2) /100WBC VBG pH (7.32-7.43) VBG pCO2 mmHg VBG pO2 mmHg VBG HCO3 (22-26) mmol/L VBG O2 Saturation % VBG Base Excess mmol/L Sodium (135-145) mmol/L Potassium (3.3-5.1) mmol/L Chloride (96-108) mmol/L Carbon Dioxide (22-29) mmol/L Anion Gap (12-20) BUN (9-16) mg/dL Creatinine (0.5-1.4) mg/dL Estim Creat Clear Calc Estimated GFR POC Glucose 432 H* 297 H (60-115) mg/dL Random Glucose (60-115) mg/dL Calcium (8.4-10.2) mg/dL Total Bilirubin (0.0-1.0) mg/dL Direct Bilirubin (0.0-0.5) mg/dL AST (5-31) U/L ALT (0-31) U/L Alkaline Phosphatase (39-117) U/L Total Protein (6.5-8.0) g/dL Albumin (3.5-5.0) g/dL Lipase (8-78) U/L Urine Color Urine Appearance Urine pH (5.0-8.0) Ur Specific [place] (1.005-1.025) Urine Protein (NEG-TRACE) MG/DL Urine Glucose (UA) (NEG) MG/DL Urine Ketones (NEG) MG/DL Urine Blood (NEG) Urine Nitrite (NEG) Ur Leukocyte Esterase (NEG) Urine RBC (0) /HPF Urine WBC (0-4) /HPF Ur Squamous Epith Cells /LPF Urine Bacteria /LPF Acetone, Qual (Negative) Discharge Plan Discharge Clinical Impression: Hyperglycemia due to type 2 diabetes mellitus Qualifiers: Diabetes mellitus intermediate insulin use: with solution sales senior executive use Qualified Code(s): E11.65 - Type 2 diabetes mellitus with hyperglycemia Vomiting Qualifiers: Vomiting type: unspecified Vomiting Intractability: non-intractable Nausea presence: with nausea Qualified Code(s): R11.2 - Nausea with vomiting, unspecified Patient Disposition: Home, Self-Care Instructions: Acute Nausea and Vomiting (ED), Diabetic Hyperglycemia (ED) Additional Instructions: Drink plenty of fluids take medication for nausea and pain Take your insulin on time Prescriptions: New dicyclomine 20 mg tablet 20 mg PO QID PRN (Reason: abdominal pain) Qty: 20 RF: 0 ondansetron 4 mg tablet,disintegrating 4 mg PO Q6-8H PRN (Reason: nausea and vomiting) Qty: 14 RF: 0 No Action lisinopril 5 mg tablet 5 mg PO DAILY Qty: 90 RF: 2 bisacodyl [Dulcolax (bisacodyl)] 5 mg tablet,delayed release (DR/EC) 10 mg PO BEDTIME 1 Days Qty: 2 RF: 0 polyethylene glycol 3350 [Miralax] 17 gram/dose powder See Rx Instructions PO DAILY 1 Days Qty: 238 RF: 0 gabapentin 100 mg capsule 100 mg PO TID Qty: 270 RF: 0 metoclopramide HCl 10 mg tablet 10 mg PO .COMPLEX PRN (Reason: nausea and vomiting) 30 Days Qty: 90 RF: 3 tramadol 50 mg tablet See Rx Instructions .ROUTE .COMPLEX PRN (Reason: pain) 25 Days Qty: 100 RF: 1 lorazepam 0.5 mg tablet 0.5 mg PO TID PRN (Reason: Anxiety) 30 Days Qty: 90 RF: 0 lubiprostone [Amitiza] 8 mcg capsule 8 mcg PO BID 30 Days Qty: 60 RF: 3 omeprazole 20 mg capsule,delayed release(DR/EC) 20 mg PO BID 30 Days Qty: 60 RF: 3 citalopram 10 mg tablet 1 tab PO DAILY RF: 0 atorvastatin 40 mg tablet 40 mg PO BEDTIME RF: 0 furosemide 20 mg tablet 60 mg PO BID RF: 0 pramipexole 1 mg tablet 1 mg PO TID RF: 0 aspirin 81 mg tablet,delayed release (DR/EC) 81 mg PO DAILY RF: 0 Trulicity 1.5 mg/0.5 mL pen injector 1.5 mg subcut QWEEK RF: 0 budesonide-formoterol [Symbicort] 160-4.5 mcg/actuation HFA aerosol inhaler 2 puff inhalation BID RF: 0 spironolactone 50 mg tablet 50 mg PO BID RF: 0 metoprolol succinate 25 mg tablet extended release 24 hr 25 mg PO DAILY RF: 0 insulin regular hum U-500 conc 500 unit/mL (3 mL) insulin pen See Rx Instructions subcut TIDWMEAL RF: 0 ondansetron 4 mg tablet,disintegrating 4 mg PO Q6-8H PRN (Reason: nausea and vomiting) 10 Days Qty: 40 RF: 0 fluticasone propionate 50 mcg/actuation spray,suspension 1 spray intranasal DAILY RF: 0 Breo Ellipta 100-25 mcg/dose blister with device 1 inh inhalation DAILY RF: 0
[2020-11-26] MEDS: Morphine Sulfate 4 MG/ML CARTRIDGE IVPUSH (23:00)
[2020-11-26] MEDS: ondansetron HCL 4 MG/2 ML VIAL IVPUSH (23:01)
--- NOTE | 2020-11-27 01:16 | PC.NURSE ---
Repeat POC 297 at this time. Plan for discharge home, per .
[2020-11-27 01:18] LABS: Glucose, Whole Blood 297 mg/dL (60-115)
== END 2020-11-27 01:30 | disposition home or self-care (01) ==
PROVIDERS: Nurse Practitioner Family; Emergency Provider Internal Medicine; PCP Internal Medicine
DX: E11.65 Type 2 diabetes mellitus with hyperglycemia (principal); T38.3X6A Underdosing of insulin and oral hypoglycemic [antidiabetic] drugs, initial encounter; Z91.128 Patient's intentional underdosing of medication regimen for other reason; Y92.9 Unspecified place or not applicable; R11.2 Nausea with vomiting, unspecified; J45.909 Unspecified asthma, uncomplicated; I10 Essential (primary) hypertension; Z79.4 Long term (current) use of insulin; Z79.82 Long term (current) use of aspirin; Z79.899 Other long term (current) drug therapy
CPT/HCPCS: 36415; 76705; 80048; 80076; 81001; 82009; 82947; 83690; 85025; 96361; 96374; 96375; 99284; J2270; J2405

== ENCOUNTER 2020-12-28 06:26 | Day surgery (SDC) | payer OTHER, SELFPAY ==
[2020-12-20 19:31] VITALS: BMI 51.2
--- NOTE | 2020-12-27 09:25 | HO.ANESPROP2 ---
Documented by User: Gale Wright 12/27/20 09:36 HPI - Anesthesia Eval Consult details Narrative: 50yo F for Upper Endoscopy and Colonoscopy 11/26/20 [facility] [place] ED with hyperglycemia (BS = >600 on arrival) 2/2 not taking insulin. Previous SSS cancels d/t hyperglycemia PMFSH Active Problems Active Problems: All Active Problems (Updated 11/28/20 @ 00:01 by Harley Murillo) Superficial bruising of lower leg (Acute) Pain and swelling of right lower extremity (Acute) Foamy urine (Acute) Colon cancer screening (Acute) Morbid obesity with BMI of 50.0-59.9, adult (Acute) Pure hypercholesterolemia (Acute) Fatigue (Acute) Diabetes mellitus (Acute) Pedal edema (Acute) Nausea and vomiting (Acute) Abdominal pain (Acute) Dyspnea on effort (Acute) Asthma (Acute) Morbid obesity with BMI of 50.0-59.9, adult (Acute) Liver cirrhosis (Acute) Pars defect of lumbar spine (Acute) Spondylolisthesis, lumbar region (Acute) Postlaminectomy syndrome, lumbar (Acute) Spondylosis of lumbar spine (Acute) Rectal bleeding (Acute) Fatty pancreas (Acute) Chronic constipation (Acute) Cirrhosis of liver without ascites (Acute) Body mass index [BMI] 50.0-59.9, adult (Acute) Morbid (severe) obesity due to excess calories (Acute) Depression (Acute) Anxiety (Acute) Insomnia (Acute) Obstructive sleep apnea (Acute) Periodic limb movement disorder (Acute) Neuropathic pain of both feet (Acute) GERD (gastroesophageal reflux disease) (Acute) Gastroparesis (Acute) Lumbar degenerative disc disease (Acute) Benign essential hypertension (Acute) Dyslipidemia (Acute) Diastolic dysfunction (Acute) Type 2 diabetes mellitus with diabetic autonomic (poly)neuropathy (Acute) Past Medical History Medical History (Updated 12/28/20 @ 07:59 by Dary Frost MD) Abdominal pain Anxiety Asthma Atypical chest pain Benign essential hypertension Body mass index [BMI] 50.0-59.9, adult Chronic constipation Cirrhosis of liver without ascites Depression Diabetes mellitus Diastolic dysfunction Dyslipidemia Dyspnea on effort Fatigue Fatty pancreas Gastroparesis GERD (gastroesophageal reflux disease) HTN (hypertension) Insomnia Liver cirrhosis Lumbar degenerative disc disease Morbid (severe) obesity due to excess calories Morbid obesity with BMI of 50.0-59.9, adult Nausea and vomiting Neuropathic pain of both feet Obstructive sleep apnea On beta kelsey at home Pain and swelling of right lower extremity Pars defect of lumbar spine Pedal edema Periodic limb movement disorder Postlaminectomy syndrome, lumbar Pure hypercholesterolemia Rectal bleeding Sleep apnea with use of continuous positive airway pressure (CPAP) Spondylolisthesis, lumbar region Spondylosis of lumbar spine Superficial bruising of lower leg Type 2 diabetes mellitus with diabetic autonomic (poly)neuropathy Family History Family History Father Diabetes mellitus Hypertension Mother Diabetes mellitus Hypertension Uterine cancer History of heart attack Surgical History Surgical History H/O cardiac catheterization (~12/14/17) H/O section History of appendectomy History of esophagogastroduodenoscopy (EGD) History of laryngoscopy (~02/10/19) History of lumbar discectomy History of surgery History of ventral hernia repair (~2008) Social History Social History Housing: Apartment Are you a primary direct support professional caregiver to a significant other at home: No Do you presently have visiting nurse or other home services: Yes (Home Health Aide, VNA) Alcohol intake: never Patient Tobacco Use Status: Former Tobacco user Tobacco use type: Cigarette Second Hand Smoke Exposure: No Are you DNR?: No Advance Directives: No Advance Directives Information Provided: No Advance Directives on File: No service: No Current occupational status: disabled Meds Allergies Allergy/AdvReac Type Severity Reaction Status Date / Time empagliflozin Allergy Intermediate Rash Verified 12/20/20 19:31 [From JARDIANCE] adhesive tape Allergy Rash Verified 12/20/20 19:31 metformin [METFORMIN] AdvReac Intermediate Rash, GI Verified 12/20/20 19:31 upset sitagliptin [From JANUVIA] AdvReac Unknown Rash,nausea, Verified 12/20/20 19:31 hypoglycemia Home Medications Medication Instructions Recorded Confirmed Last Taken Type aspirin 81 mg tablet,delayed 81 mg PO DAILY 03/04/20 12/20/20 12/14/20 09:00 History release budesonide-formoterol HFA 160 2 puff INHALATION BID 03/04/20 12/20/20 Unknown History mcg-4.5 mcg/actuation aerosol inhaler (Symbicort) dulaglutide 1.5 mg/0.5 mL 1.5 mg SUBCUT QWEEK ml 03/04/20 12/20/20 Unknown History subcutaneous pen injector insulin regular hum U-500 conc See Rx Instructions SUBCUT 03/04/20 12/20/20 Unknown History TIDWMEAL ml metoprolol succinate 25 mg 25 mg PO DAILY 03/04/20 12/20/20 07/16/20 History tablet,extended release 24 hr pramipexole 1 mg tablet 1 mg PO TID tab 03/04/20 12/20/20 07/16/20 History spironolactone 50 mg tablet 50 mg PO BID tab 03/04/20 12/20/20 Unknown History fluticasone furoate 100 1 inh INHALATION DAILY 07/06/20 12/20/20 07/16/20 History mcg-vilanterol 25 mcg/dose inhalation powder (Breo Ellipta) fluticasone propionate 50 1 spray INTRANASAL DAILY 07/06/20 12/20/20 Unknown History mcg/actuation nasal spray,suspension citalopram 10 mg tablet 1 tab PO DAILY 07/12/20 12/20/20 Unknown History atorvastatin 40 mg tablet 40 mg PO BEDTIME 10/06/20 12/20/20 Unknown History furosemide 20 mg tablet 60 mg PO BID 10/06/20 12/20/20 Unknown History Exam Exam Date and Time: December 27, 2020 0925 Height,Weight and Vital Signs: Height 5 ft 3 in Weight 131.088 kg Narrative Narrative: EKG 08/2020 Vent. Rate : 083 BPM ? ? Atrial Rate : 083 BPM ?? P-R Int : 164 ms? QRS Dur : 100 ms ? ? QT Int : 384 ms ? ? ? P-R-T Axes : 019 010 043 degrees ?? QTc Int : 451 ms ? Normal sinus rhythm Normal ECG When compared with ECG of 08-SEP-2020 23:13, Nonspecific T wave abnormality, improved in Inferior leads ECHO 09/2018: Nml LV sys function with mild LVH, impaired relax, valves wnl, no pericard effusion Per pcp note from 12/2019: Repeat nuc stress done at [facility] a few months ago came out nml. Per cardiology note 05/2019: cardiac cath with no obstructive CAD Assessment and Plan Assessment Anesthesia Assessment: Chart Reviewed Documented by User: Dary Frost MD 12/28/20 07:59 [facility] Active Problems Active Problems: All Active Problems (Updated 11/28/20 @ 00:01 by Harley Murillo) Superficial bruising of lower leg (Acute) Pain and swelling of right lower extremity (Acute) Foamy urine (Acute) Colon cancer screening (Acute) Morbid obesity with BMI of 50.0-59.9, adult (Acute) Pure hypercholesterolemia (Acute) Fatigue (Acute) Diabetes mellitus (Acute) Pedal edema (Acute) Nausea and vomiting (Acute) Abdominal pain (Acute) Dyspnea on effort (Acute) Asthma (Acute) Morbid obesity with BMI of 50.0-59.9, adult (Acute) Liver cirrhosis (Acute) Pars defect of lumbar spine (Acute) Spondylolisthesis, lumbar region (Acute) Postlaminectomy syndrome, lumbar (Acute) Spondylosis of lumbar spine (Acute). Occ Lower extremity weakness. Uses walking aid-?cane Rectal bleeding (Acute) Fatty pancreas (Acute) Chronic constipation (Acute) Cirrhosis of liver without ascites (Acute) Body mass index [BMI] 50.0-59.9, adult (Acute) Morbid (severe) obesity due to excess calories (Acute) Depression (Acute) Anxiety (Acute) Insomnia (Acute) Obstructive sleep apnea (Acute). States that she uses CPAP machine Periodic limb movement disorder (Acute) Neuropathic pain of both feet (Acute) GERD (gastroesophageal reflux disease) (Acute) Gastroparesis (Acute) Lumbar degenerative disc disease (Acute) Benign essential hypertension (Acute) Dyslipidemia (Acute) Diastolic dysfunction (Acute) Type 2 diabetes mellitus with diabetic autonomic (poly)neuropathy (Acute) Past Medical History Medical History (Updated 12/28/20 @ 07:59 by Dary Frost MD) Abdominal pain Anxiety Asthma Atypical chest pain Benign essential hypertension Body mass index [BMI] 50.0-59.9, adult Chronic constipation Cirrhosis of liver without ascites Depression Diabetes mellitus Diastolic dysfunction Dyslipidemia Dyspnea on effort Fatigue Fatty pancreas Gastroparesis GERD (gastroesophageal reflux disease) HTN (hypertension) Insomnia Liver cirrhosis Lumbar degenerative disc disease Morbid (severe) obesity due to excess calories Morbid obesity with BMI of 50.0-59.9, adult Nausea and vomiting Neuropathic pain of both feet Obstructive sleep apnea On beta kelsey at home Pain and swelling of right lower extremity Pars defect of lumbar spine Pedal edema Periodic limb movement disorder Postlaminectomy syndrome, lumbar Pure hypercholesterolemia Rectal bleeding Sleep apnea with use of continuous positive airway pressure (CPAP) Spondylolisthesis, lumbar region Spondylosis of lumbar spine Superficial bruising of lower leg Type 2 diabetes mellitus with diabetic autonomic (poly)neuropathy Family History Family History Father Diabetes mellitus Hypertension Mother Diabetes mellitus Hypertension Uterine cancer History of heart attack Family history of problems with anesthesia: No Surgical History Surgical History H/O cardiac catheterization (~12/14/17) H/O section History of appendectomy History of esophagogastroduodenoscopy (EGD) History of laryngoscopy (~02/10/19) History of lumbar discectomy History of surgery History of ventral hernia repair (~2008) History of Problems with Anesthesia: No Social History Social History Housing: Apartment Are you a primary direct support professional caregiver to a significant other at home: No Do you presently have visiting nurse or other home services: Yes (Home Health Aide, VNA) Alcohol intake: never Patient Tobacco Use Status: Former Tobacco user Tobacco use type: Cigarette Second Hand Smoke Exposure: No Are you DNR?: No Advance Directives: No Advance Directives Information Provided: No Advance Directives on File: No service: No Current occupational status: disabled Meds Allergies Allergy/AdvReac Type Severity Reaction Status Date / Time empagliflozin Allergy Intermediate Rash Verified 12/20/20 19:31 [From JARDIANCE] adhesive tape Allergy Rash Verified 12/20/20 19:31 metformin [METFORMIN] AdvReac Intermediate Rash, GI Verified 12/20/20 19:31 upset sitagliptin [From JANUVIA] AdvReac Unknown Rash,nausea, Verified 12/20/20 19:31 hypoglycemia Home Medications Medication Instructions Recorded Confirmed Last Taken Type aspirin 81 mg tablet,delayed 81 mg PO DAILY 03/04/20 12/20/20 12/14/20 09:00 History release budesonide-formoterol HFA 160 2 puff INHALATION BID 03/04/20 12/20/20 Unknown History mcg-4.5 mcg/actuation aerosol inhaler (Symbicort) dulaglutide 1.5 mg/0.5 mL 1.5 mg SUBCUT QWEEK ml 03/04/20 12/20/20 Unknown History subcutaneous pen injector insulin regular hum U-500 conc See Rx Instructions SUBCUT 03/04/20 12/20/20 Unknown History TIDWMEAL ml metoprolol succinate 25 mg 25 mg PO DAILY 03/04/20 12/20/20 07/16/20 History tablet,extended release 24 hr pramipexole 1 mg tablet 1 mg PO TID tab 03/04/20 12/20/20 07/16/20 History spironolactone 50 mg tablet 50 mg PO BID tab 03/04/20 12/20/20 Unknown History fluticasone furoate 100 1 inh INHALATION DAILY 07/06/20 12/20/20 07/16/20 History mcg-vilanterol 25 mcg/dose inhalation powder (Breo Ellipta) fluticasone propionate 50 1 spray INTRANASAL DAILY 07/06/20 12/20/20 Unknown History mcg/actuation nasal spray,suspension citalopram 10 mg tablet 1 tab PO DAILY 07/12/20 12/20/20 Unknown History atorvastatin 40 mg tablet 40 mg PO BEDTIME 10/06/20 12/20/20 Unknown History furosemide 20 mg tablet 60 mg PO BID 10/06/20 12/20/20 Unknown History Exam Height,Weight and Vital Signs: Height 5 ft 3 in Weight 131.088 kg Vital Signs Temp Pulse Resp BP Pulse Ox 12/28/20 06:51 97.3 F 106 H 18 105/68 96 Pertinent Lab Results Pertinent Lab Results: Lab Results 12/28/20 Range/Units 06:43 Sodium 135 (135-145) mmol/L Potassium 4.1 (3.3-5.1) mmol/L Chloride 102 (96-108) mmol/L Carbon Dioxide 23 (22-29) mmol/L Anion Gap 14 (12-20) BUN 22 H (9-16) mg/dL Creatinine 1.17 (0.5-1.4) mg/dL Estim Creat Clear Calc 75.3 Estimated GFR 49 Fasting Glucose 171 H (60-99) mg/dL Calcium 9.6 D (8.4-10.2) mg/dL Airway Mallampati Class: II TM Dist: >3cm Neck ROM: Full Heart: RRR Lungs: CTAB Assessment and Plan Assessment Anesthesia Assessment: Anesthesia Plan Discussed Final Anesthetic Review Family History of Problems with Anesthesia: No History of Problems with Anesthesia: No NPO: Yes ASA Class: III Final Preanesthetic Review: Meds/Allgs Chart Reviewed, Consent Obtained/Reviewed and Anes Risks/Benef Reviewed Patient Risk: Intermediate Procedure Risk: Low Assessment/Block/Sedation in SS: Assess/Block/Sedation-SS Anesthetic Plan Anesthetic Plan: GA and MAC: Disposition: Standard PACU
[2020-12-28 06:51] VITALS: BP 105/68; PULSE 106; RESP 18; TEMP 36.3; O2SAT 96
[2020-12-28] MEDS: Lactated Ringers 1,000 ML 100 ML IVCONT (07:05)
[2020-12-28] MEDS: ondansetron HCL 4 MG/2 ML VIAL IVPUSH (07:13)
--- NOTE | 2020-12-28 07:23 | P.HPSUR_ITS ---
Pre-Procedural Eval Section A Date of Service: 12/28/20 The patient is an INPATIENT: No The History & Physical has been completed within 30 days and I have reviewed it.: No Section B Chief Complaint: GERD, Chronic Constipation Details of Present Illness: Colon cancer screening, GERD, gastroparesis, chronic constipation, cirrhosis screen for varices. Relevant Family History (Specify if Yes): No Relevant Social History: Tobacco Use (former smoker) Present Medications: see Short Stay Collaborative assessment Medical History: Significant History (Abdominal pain Anxiety Asthma Asthma Atypical chest pain Benign essential hypertension Body mass index [BMI] 50.0- 59.9, adult Chronic constipation Cirrhosis of liver without ascites Depression Diabetes mellitus Diastolic dysfunction Dyslipidemia Dyspnea on effort Fatigue Fatty pancreas Gastroparesis) History of Previous Operations: Relevant previous surgery/procedure and date(s) (H/O cardiac catheterization (~12/14/17) H/O section History of appendectomy History of esophagogastroduodenoscopy (EGD) History of laryngoscopy (~02/10/19) History of lumbar discectomy History of ventral hernia repair (~2008)) Allergies: Allergies Allergy/AdvReac Type Severity Reaction Status Date / Time empagliflozin Allergy Intermediate Rash Verified 12/20/20 19:31 [From JARDIANCE] adhesive tape Allergy Rash Verified 12/20/20 19:31 metformin [METFORMIN] AdvReac Intermediate Rash, GI Verified 12/20/20 19:31 upset sitagliptin [From JANUVIA] AdvReac Unknown Rash,nausea, Verified 12/20/20 19:31 hypoglycemia Review of Systems Sugical H&P ROS: Negative: Constitution, Cardiovascular and Respiratory and Yes, Specify: Gastrointestinal (GERD, constipation) Exam Surgical H&P Exam: Normal: Heart, Normal: Lungs, Normal: Extremities and Normal: Abdomen Plan Diagnosis/Plan: Unchanged I have reviewed the history and physical and performed a pertinent physical examination on my patient. No changes have occurred unless specified.
[2020-12-28 07:31] LABS: Anion Gap 14 (12-20); Blood Urea Nitrogen 22 mg/dL (9-16); Calcium 9.6 mg/dL (8.4-10.2); Carbon Dioxide 23 mmol/L (22-29); Chloride 102 mmol/L (96-108); Creatinine Clr Calc Pharmacy 75.3; Estimated Glomerular Filt Rate 49; Glucose Fasting 171 mg/dL (60-99); Potassium 4.1 mmol/L (3.3-5.1); Sodium 135 mmol/L (135-145)
--- NOTE | 2020-12-28 08:41 | P.BOP_ITS ---
Brief Operative Note Date of Service: 12/28/20 Pre-op diagnosis: Colon cancer screening, chronic constipation, rectal bleeding, gastroparesis Post-op diagnosis: other (Colon polyps, diverticulosis, hemorrhoids, gastritis, gastroparesis) Procedure: FLEXIBLE TRANSORAL UPPER GASTROINTESTINAL ENDOSCOPY WITH BIOPSIES AND PYLORIC BALLOON DILATION AND COLONOSCOPY TILL CECUM WITH BIOPSIES AND SNARE POLYPECTOMY UPPER ENDOSCOPY Consent: Indications for the procedure and potential complications of bleeding, perforation, reaction to medications and missed diagnosis were discussed with the patient and informed consent was obtained. Instrument: Olympus GIF H 190 mid size upper endoscope Monitoring: Vital signs and clinical assessment, continuous EKG monitoring, Pulse oximetry, Carbon Dioxide monitoring and blood pressure monitoring were done throughout the procedure. Procedure: The patient was placed in the left lateral decubitis position and pre-procedure medications were administered and a bite block was placed. The endoscope was inserted into the mouth and advanced under direct vision to the third part of duodenum. A careful inspection was made as the upper endoscope was withdrawn including a retroflexed examination of the proximal stomach; Findings and interventions are described below. Findings: Larynx: Normal Esophagus: Tortuous esophagus with increased tertiary contractions without stricture ring or varices. GE junction at 36 cms.. No esophagitis or Diaz's. Stomach: Mild gastric erythema with a 2 mm chronic appearing antral erosion. Biopsies were obtained. Grade 2 flap valve on retroflexed examination of the cardia. Duodenum: Normal bulb and descending duodenum. Biopsies were obtained from 3rd duodenum to check for celiac sprue Intervention: Biopsies as noted above COLONOSCOPY PROCEDURE NOTE Consent: Indications for the procedure and potential complications of bleeding, perforation, reaction to medications and missed diagnosis were discussed with the patient and informed consent was obtained. Instrument: Olympus PCF H 190 L variable stiffness pediatric colonoscope Monitoring: Vital signs and clinical assessment, intermittent blood pressure monitoring, continuous EKG monitoring, Pulse oximetry and Carbon Dioxide monitoring were done throughout the procedure. Colon withdrawl time was 21 minutes. Procedure: The patient was placed in the left lateral decubitis position and pre-procedure medications were administered. After a digital rectal examination of the ano-rectum, the video colonoscope was inserted into the rectum and advanced through the colon to the cecum. The colonoscope was slowly withdrawn in a retrograde panoramic fashion and the colon mucosa was carefully examined including a retroflexed view of the rectum. Findings and interventions are described below. Procedure Difficulty: : Without difficulty Findings: Terminal Ileum: Not evaluated Cecum: Normal Ascending Colon: One 5-6 mm sessile polyp in the distal AC removed with a cold bx Transverse Colon: Normal Descending Colon: A 2.5 cms pedunculated polyp removed with a hot snare Sigmoid Colon: Moderate diverticulosis Rectum: Normal Ano-rectum: Moderate internal hemorrhoids Colon preparation: Good after some irrigation Impression and Post Procedure Diagnosis: Endoscopy Findings: ESOPHAGUS: Tortuous esophagus with increased tertiary contractions without stricture ring or varices. STOMACH: Gastritis with chronic appearing erosion DUODENUM: Normal - biopsied to check for celiac sprue Colonoscopy Findings: One large and one small polyps removed Moderate diverticulosis seen in the sigmoid colon Moderate hemorrhoids on retroflexed exam. Plan: Await pathology results Patient has an appointment on 01/27/21 in the GI Clinic with Annika Redding M.D.. Repeat Colonoscopy interval based on path results - in 2 years if polyps are adenomatous and 10 years if polyps are hyperplastic. Above findings were reviewed with the patient and colon polyps and diverticulosis handouts were given in the discharge area Surgeon: Annika Redding MD Anesthesia: MAC (Hilda Parikh CRNA and Dr Frost) Was an Management Tech used for this Procedure?: Yes Management Tech: Brinda Fletcher Estimated blood loss (mL): 0 Pathology: other (A. SMALL BOWEL R/O CELIAC DISEASE B. STOMACH C. ASCENDING COLON POLYP D. DESCENDING COLON POLYP AT 60CM) Condition: stable Disposition: PACU
[2020-12-28 08:50] VITALS: BP 110/74; PULSE 101; RESP 16; TEMP 36.3; O2SAT 97
[2020-12-28 09:05] VITALS: BP 112/70; PULSE 92; RESP 18; O2SAT 96
[2020-12-28 09:20] VITALS: BP 117/82; PULSE 90; RESP 16; O2SAT 97
--- NOTE | 2020-12-28 18:20 | W.PM.OPN ---
Operative Note Operative Note Date of Service: 12/28/20 Narrative: Pre-op diagnosis:?Colon cancer screening, chronic constipation, rectal bleeding, gastroparesis Post-op diagnosis:?other (Colon polyps, diverticulosis, hemorrhoids, gastritis, gastroparesis) Procedure:? FLEXIBLE TRANSORAL UPPER GASTROINTESTINAL ENDOSCOPY WITH BIOPSIES AND PYLORIC BALLOON DILATION AND COLONOSCOPY TILL CECUM WITH BIOPSIES AND SNARE POLYPECTOMY UPPER ENDOSCOPY Consent:?Indications for the procedure and potential complications of bleeding, perforation, reaction to medications and missed diagnosis were discussed with the patient and informed consent was obtained. Instrument:?Olympus GIF H 190 mid size upper endoscope Monitoring: Vital signs and clinical assessment, continuous EKG monitoring, Pulse oximetry, Carbon Dioxide monitoring and blood pressure monitoring were done throughout the procedure. Procedure:?The patient was placed in the left lateral decubitis position and pre-procedure medications were administered and a bite block was placed. The endoscope was inserted into the mouth and advanced under direct vision to the third part of duodenum. A careful inspection was made as the upper endoscope was withdrawn including a retroflexed examination of the proximal stomach; Findings and interventions are described below. Findings: Larynx:? Normal Esophagus: Tortuous esophagus with increased tertiary contractions without stricture ring or varices.??GE junction at 36 cms.. No esophagitis or Diaz's. Stomach:?Mild gastric erythema with a 2 mm chronic appearing antral erosion.? Biopsies were obtained. Grade 2 flap valve on retroflexed examination of the cardia. Balloon dilation of pylorus was performed with an 18 mm CRE balloon x 60 sec. Duodenum:?Normal bulb and descending duodenum.? Biopsies were obtained from 3rd duodenum to check for celiac sprue Intervention:?Biopsies and balloon dilation of the pyorus as noted above COLONOSCOPY PROCEDURE NOTE Consent:?Indications for the procedure and potential complications of bleeding, perforation, reaction to medications and missed diagnosis were discussed with the patient and informed consent was obtained. Instrument:?Olympus PCF H 190 L variable stiffness pediatric colonoscope Monitoring:?Vital signs and clinical assessment, intermittent blood pressure monitoring, continuous EKG monitoring, Pulse oximetry and Carbon Dioxide monitoring were done throughout the procedure. Colon withdrawl time was 21 minutes. Procedure:?The patient was placed in the left lateral decubitis position and pre-procedure medications were administered. After a digital rectal examination of the ano-rectum, the video colonoscope was inserted into the rectum and advanced through the colon to the cecum. The colonoscope was slowly withdrawn in a retrograde panoramic fashion and the colon mucosa was carefully examined including a retroflexed view of the rectum. Findings and interventions are described below. Procedure Difficulty:?: Without difficulty Findings: Terminal Ileum: Not evaluated Cecum:? Normal Ascending Colon:??One 5-6 mm sessile polyp in the distal AC removed with a cold bx Transverse Colon:??Normal Descending Colon:? A 2.5 cms pedunculated polyp removed with a hot snare Sigmoid Colon:??Moderate diverticulosis Rectum:??Normal Ano-rectum:??Moderate internal hemorrhoids Colon preparation:? Good after some irrigation Impression and Post Procedure Diagnosis: Endoscopy Findings: ESOPHAGUS: Tortuous esophagus with increased tertiary contractions without stricture ring or varices. STOMACH:? Gastritis with chronic appearing erosion DUODENUM:? Normal - biopsied to check for celiac sprue Colonoscopy Findings: One large and one small polyps removed Moderate diverticulosis seen in the sigmoid colon Moderate hemorrhoids on retroflexed exam. Plan: Await pathology results Patient has an appointment on 01/27/21 in the GI Clinic with ? Annika Redding M.D.. Repeat Colonoscopy interval based on path results - in 2 years if polyps are adenomatous and 10 years if polyps are hyperplastic. Above findings were reviewed with the patient and colon polyps and diverticulosis handouts were given in the discharge area Surgeon:?Annika Redding MD Anesthesia:?MAC (Hilda Parikh CRNA and Dr Frost) Was an Transitional Studies Instructor used for this Procedure?:?Yes Transitional Studies Instructor:?Brinda Fletcher Estimated blood loss (mL):?0 Pathology:?other (A. SMALL BOWEL R/O CELIAC DISEASE? B. STOMACH? C. ASCENDING COLON POLYP? D. DESCENDING COLON POLYP AT 60CM) Condition:?stable Disposition:?PACU
== END 2020-12-28 10:25 ==
LOC: HO.SSS 06:26
PROVIDERS: Nurse Practitioner; PCP Internal Medicine; Visit Provider Internal Medicine Gastroenterology
PROC: (CPT 45385; principal; 2020-12-28 07:30)
DX: Z12.11 Encounter for screening for malignant neoplasm of colon (principal); D12.2 Benign neoplasm of ascending colon; D12.4 Benign neoplasm of descending colon; K57.30 Diverticulosis of large intestine without perforation or abscess without bleeding; K64.8 Other hemorrhoids; K59.01 Slow transit constipation; K21.9 Gastro-esophageal reflux disease without esophagitis; K22.8 Other specified diseases of esophagus; K29.50 Unspecified chronic gastritis without bleeding; K31.84 Gastroparesis; K74.60 Unspecified cirrhosis of liver; K76.0 Fatty (change of) liver, not elsewhere classified; I11.0 Hypertensive heart disease with heart failure; I50.30 Unspecified diastolic (congestive) heart failure; J45.909 Unspecified asthma, uncomplicated; E11.9 Type 2 diabetes mellitus without complications; Z79.4 Long term (current) use of insulin; Z79.82 Long term (current) use of aspirin; Z79.899 Other long term (current) drug therapy; Z88.8 Allergy status to other drugs, medicaments and biological substances; Z86.19 Personal history of other infectious and parasitic diseases; Z87.891 Personal history of nicotine dependence
CPT/HCPCS: 45385; 45380; 43245; 43239; 36415; 80048; 88305; 88342; C1726; J2250; J2405; J2765

== ENCOUNTER 2021-01-21 06:29 | Day surgery (SDC) | payer OTHER, SELFPAY ==
[2020-10-06 12:10] VITALS: BMI 53.1
--- NOTE | 2021-01-20 10:22 | P.CONAN_ITS ---
Documented by User: Gale Wright NP 01/20/21 10:25 HPI - Anesthesia Eval Consult details Narrative: 50yo F for Lumbar Spinal Stimulation Implant s/p spinal stim trial 06/2020 with GA-ETT 7 PMFSH Active Problems Active Problems: All Active Problems (Updated 01/19/21 @ 15:05 by Susana James, RN) Post laminectomy syndrome (Acute) Superficial bruising of lower leg (Acute) Pain and swelling of right lower extremity (Acute) Foamy urine (Acute) Colon cancer screening (Acute) Morbid obesity with BMI of 50.0-59.9, adult (Acute) Pure hypercholesterolemia (Acute) Fatigue (Acute) Diabetes mellitus (Acute) Pedal edema (Acute) Nausea and vomiting (Acute) Abdominal pain (Acute) Dyspnea on effort (Acute) Asthma (Acute) Morbid obesity with BMI of 50.0-59.9, adult (Acute) Liver cirrhosis (Acute) Pars defect of lumbar spine (Acute) Spondylolisthesis, lumbar region (Acute) Postlaminectomy syndrome, lumbar (Acute) Spondylosis of lumbar spine (Acute) Rectal bleeding (Acute) Fatty pancreas (Acute) Chronic constipation (Acute) Cirrhosis of liver without ascites (Acute) Body mass index [BMI] 50.0-59.9, adult (Acute) Morbid (severe) obesity due to excess calories (Acute) Depression (Acute) Anxiety (Acute) Insomnia (Acute) Obstructive sleep apnea (Acute) Periodic limb movement disorder (Acute) Neuropathic pain of both feet (Acute) GERD (gastroesophageal reflux disease) (Acute) Gastroparesis (Acute) Lumbar degenerative disc disease (Acute) Benign essential hypertension (Acute) Dyslipidemia (Acute) Diastolic dysfunction (Acute) Type 2 diabetes mellitus with diabetic autonomic (poly)neuropathy (Acute) Past Medical History Medical History (Updated 01/19/21 @ 15:05 by Susana James, RN) Abdominal pain Anxiety Asthma Atypical chest pain Benign essential hypertension Body mass index [BMI] 50.0-59.9, adult Chronic constipation Cirrhosis of liver without ascites Depression Diabetes mellitus Diastolic dysfunction Dyslipidemia Dyspnea on effort Fatigue Fatty pancreas Gastroparesis GERD (gastroesophageal reflux disease) HTN (hypertension) Insomnia Liver cirrhosis Lumbar degenerative disc disease Morbid (severe) obesity due to excess calories Morbid obesity with BMI of 50.0-59.9, adult Nausea and vomiting Neuropathic pain of both feet Obstructive sleep apnea On beta kelsey at home Pain and swelling of right lower extremity Pars defect of lumbar spine Pedal edema Periodic limb movement disorder Postlaminectomy syndrome, lumbar Pure hypercholesterolemia Rectal bleeding Sleep apnea with use of continuous positive airway pressure (CPAP) Spondylolisthesis, lumbar region Spondylosis of lumbar spine Superficial bruising of lower leg Type 2 diabetes mellitus with diabetic autonomic (poly)neuropathy Family History Family History Father Diabetes mellitus Hypertension Mother Diabetes mellitus Hypertension Uterine cancer History of heart attack Family history of problems with anesthesia: No Surgical History Surgical History H/O cardiac catheterization (~12/14/17) H/O section History of appendectomy History of esophagogastroduodenoscopy (EGD) History of laryngoscopy (~02/10/19) History of lumbar discectomy History of surgery History of ventral hernia repair (~2008) History of Problems with Anesthesia: No Social History Social History Housing: Apartment Are you a primary healthcare consultant to a significant other at home: No Do you presently have visiting nurse or other home services: Yes (Home Health Aide, VNA) Alcohol intake: never Patient Tobacco Use Status: Former Tobacco user Quit Date: 2005 Tobacco use type: Cigarette Cigarettes Per Day: 10 Years Smoked: 10 Smoked in Last 30 Days: No Second Hand Smoke Exposure: No Use of substances other than those prescribed or required for medical reasons: No Are you DNR?: No Advance Directives: No Advance Directives Information Provided: No Advance Directives on File: No service: No Current occupational status: disabled Meds Allergies Allergy/AdvReac Type Severity Reaction Status Date / Time empagliflozin Allergy Intermediate Rash Verified 01/21/21 06:44 [From JARDIANCE] adhesive tape Allergy Rash Verified 01/21/21 06:44 metformin [METFORMIN] AdvReac Intermediate Rash, GI Verified 01/21/21 06:44 upset sitagliptin [From JANUVIA] AdvReac Unknown Rash,nausea, Verified 01/21/21 06:44 hypoglycemia Home Medications Medication Instructions Recorded Confirmed Last Taken Type budesonide-formoterol HFA 160 2 puff INHALATION BID 03/04/20 12/20/20 Unknown History mcg-4.5 mcg/actuation aerosol inhaler (Symbicort) dulaglutide 1.5 mg/0.5 mL 1.5 mg SUBCUT QWEEK ml 03/04/20 12/20/20 Unknown History subcutaneous pen injector insulin regular hum U-500 conc See Rx Instructions SUBCUT 03/04/20 12/20/20 Unknown History TIDWMEAL ml metoprolol succinate 25 mg 25 mg PO DAILY 03/04/20 12/20/20 07/16/20 History tablet,extended release 24 hr pramipexole 1 mg tablet 1 mg PO TID tab 03/04/20 12/20/20 07/16/20 History spironolactone 50 mg tablet 50 mg PO BID tab 03/04/20 12/20/20 Unknown History fluticasone furoate 100 1 inh INHALATION DAILY 07/06/20 12/20/20 07/16/20 History mcg-vilanterol 25 mcg/dose inhalation powder (Breo Ellipta) fluticasone propionate 50 1 spray INTRANASAL DAILY 07/06/20 12/20/20 Unknown History mcg/actuation nasal spray,suspension citalopram 10 mg tablet 1 tab PO DAILY 07/12/20 12/20/20 Unknown History atorvastatin 40 mg tablet 40 mg PO BEDTIME 10/06/20 12/20/20 Unknown History furosemide 20 mg tablet 60 mg PO BID 10/06/20 12/20/20 Unknown History Exam Exam Date and Time: January 20, 2021 1022 Height,Weight and Vital Signs: Height 5 ft 3 in Weight 136.078 kg Pertinent Lab Results Pertinent Lab Results: Laboratory Tests 11/26/20 12/28/20 18:14 06:43 WBC 11.9 H Hgb 13.4 Hct 40.5 Plt Count 292 Sodium 135 Potassium 4.1 Chloride 102 Carbon Dioxide 23 BUN 22 H Creatinine 1.17 Narrative Narrative: EKG 08/2020 Vent. Rate : 083 BPM ? ? Atrial Rate : 083 BPM ?? P-R Int : 164 ms? QRS Dur : 100 ms ? ? QT Int : 384 ms ? ? ? P-R-T Axes : 019 010 043 degrees ?? QTc Int : 451 ms ? Normal sinus rhythm Normal ECG When compared with ECG of 08-SEP-2020 23:13, Nonspecific T wave abnormality, improved in Inferior leads ECHO 09/2018: Nml LV sys function with mild LVH, impaired relax, valves wnl, no pericard effusion Per pcp note from 12/2019: Repeat nuc stress done at [facility] a few months ago came out nml. Per cardiology note 05/2019: cardiac cath with no obstructive CAD Assessment and Plan Final Anesthetic Review Family History of Problems with Anesthesia: No History of Problems with Anesthesia: No Documented by User: Reed Clemons MD 01/21/21 07:08 [facility] Past Medical History Medical History (Updated 01/19/21 @ 15:05 by Susana James RN) Abdominal pain Anxiety Asthma Atypical chest pain Benign essential hypertension Body mass index [BMI] 50.0-59.9, adult Chronic constipation Cirrhosis of liver without ascites Depression Diabetes mellitus Diastolic dysfunction Dyslipidemia Dyspnea on effort Fatigue Fatty pancreas Gastroparesis GERD (gastroesophageal reflux disease) HTN (hypertension) Insomnia Liver cirrhosis Lumbar degenerative disc disease Morbid (severe) obesity due to excess calories Morbid obesity with BMI of 50.0-59.9, adult Nausea and vomiting Neuropathic pain of both feet Obstructive sleep apnea On beta kelsey at home Pain and swelling of right lower extremity Pars defect of lumbar spine Pedal edema Periodic limb movement disorder Postlaminectomy syndrome, lumbar Pure hypercholesterolemia Rectal bleeding Sleep apnea with use of continuous positive airway pressure (CPAP) Spondylolisthesis, lumbar region Spondylosis of lumbar spine Superficial bruising of lower leg Type 2 diabetes mellitus with diabetic autonomic (poly)neuropathy Family History Family History Father Diabetes mellitus Hypertension Mother Diabetes mellitus Hypertension Uterine cancer History of heart attack Surgical History Surgical History H/O cardiac catheterization (~12/14/17) H/O section History of appendectomy History of esophagogastroduodenoscopy (EGD) History of laryngoscopy (~02/10/19) History of lumbar discectomy History of surgery History of ventral hernia repair (~2008) Social History Social History Housing: Apartment Are you a primary healthcare consultant to a significant other at home: No Do you presently have visiting nurse or other home services: Yes (Home Health Aide, VNA) Alcohol intake: never Patient Tobacco Use Status: Former Tobacco user Quit Date: 2005 Tobacco use type: Cigarette Cigarettes Per Day: 10 Years Smoked: 10 Smoked in Last 30 Days: No Second Hand Smoke Exposure: No Use of substances other than those prescribed or required for medical reasons: No Are you DNR?: No Advance Directives: No Advance Directives Information Provided: No Advance Directives on File: No service: No Current occupational status: disabled Meds Allergies Allergy/AdvReac Type Severity Reaction Status Date / Time empagliflozin Allergy Intermediate Rash Verified 01/21/21 06:44 [From JARDIANCE] adhesive tape Allergy Rash Verified 01/21/21 06:44 metformin [METFORMIN] AdvReac Intermediate Rash, GI Verified 01/21/21 06:44 upset sitagliptin [From JANUVIA] AdvReac Unknown Rash,nausea, Verified 01/21/21 06:44 hypoglycemia Home Medications Medication Instructions Recorded Confirmed Last Taken Type budesonide-formoterol HFA 160 2 puff INHALATION BID 03/04/20 12/20/20 Unknown History mcg-4.5 mcg/actuation aerosol inhaler (Symbicort) dulaglutide 1.5 mg/0.5 mL 1.5 mg SUBCUT QWEEK ml 03/04/20 12/20/20 Unknown History subcutaneous pen injector insulin regular hum U-500 conc See Rx Instructions SUBCUT 03/04/20 12/20/20 Unknown History TIDWMEAL ml metoprolol succinate 25 mg 25 mg PO DAILY 03/04/20 12/20/20 07/16/20 History tablet,extended release 24 hr pramipexole 1 mg tablet 1 mg PO TID tab 03/04/20 12/20/20 07/16/20 History spironolactone 50 mg tablet 50 mg PO BID tab 03/04/20 12/20/20 Unknown History fluticasone furoate 100 1 inh INHALATION DAILY 07/06/20 12/20/20 07/16/20 History mcg-vilanterol 25 mcg/dose inhalation powder (Breo Ellipta) fluticasone propionate 50 1 spray INTRANASAL DAILY 07/06/20 12/20/20 Unknown History mcg/actuation nasal spray,suspension citalopram 10 mg tablet 1 tab PO DAILY 07/12/20 12/20/20 Unknown History atorvastatin 40 mg tablet 40 mg PO BEDTIME 10/06/20 12/20/20 Unknown History furosemide 20 mg tablet 60 mg PO BID 10/06/20 12/20/20 Unknown History Exam Airway Mallampati Class: III TM Dist: >3cm Neck ROM: Limited Heart: [id number] Lungs: + b/s bilaterally Assessment and Plan Assessment Anesthesia Assessment: Anesthesia Plan Discussed, PAT Visit and Chart Reviewed Final Anesthetic Review NPO: Yes ASA Class: III Final Preanesthetic Review: No Changes in Pt Med Stat, Meds/Allgs Chart Reviewed, Consent Obtained/Reviewed and Anes Risks/Benef Reviewed Patient Risk: Intermediate Procedure Risk: Intermediate Assessment/Block/Sedation in SS: Assess/Block/Sedation-SS Anesthetic Plan Anesthetic Plan: GA and Agree w/ Assess. and Plan Disposition: Standard PACU
--- NOTE | 2021-01-20 16:01 | MHC.SHP ---
Pre-Procedural Eval Section A Date of Service: 01/20/21 The patient is an INPATIENT: No Changes since office visit: Yes Patient answered all questions The History & Physical has been completed within 30 days and I have reviewed it.: No Section B Chief Complaint: Postlaminectomy syndrome, lumbar Details of Present Illness: The same Relevant Family History (Specify if Yes): No Relevant Social History: None Present Medications: see Short Stay Collaborative assessment Medical History: No relevant PMH Allergies: Allergies Allergy/AdvReac Type Severity Reaction Status Date / Time empagliflozin Allergy Intermediate Rash Verified 12/20/20 19:31 [From JARDIANCE] adhesive tape Allergy Rash Verified 12/20/20 19:31 metformin [METFORMIN] AdvReac Intermediate Rash, GI Verified 12/20/20 19:31 upset sitagliptin [From JANUVIA] AdvReac Unknown Rash,nausea, Verified 12/20/20 19:31 hypoglycemia Review of Systems Sugical H&P ROS: Negative: Cardiovascular, Respiratory, Neurological, Psychiatric, Hem-Onc, Allergic/Immunologic, Gastrointestinal, Genitourinary, Musculoskeletal, Integumentary, Endocrine and Eyes/Ears/Nose/Throat and Yes, Specify: Constitution (morbid obesity) Exam Surgical H&P Exam: Normal: HEENT, Normal: Heart, Normal: Lungs, Normal: Extremities, Normal: Skin and Normal: Neurological and Significant Findings: Abdomen (enlarged secondary to obesity) Plan Diagnosis/Plan: Unchanged I have reviewed the history and physical and performed a pertinent physical examination on my patient. No changes have occurred unless specified.
[2021-01-21] VITALS (12 sets, daily range): BP systolic 103–150; BP diastolic 64–90; PULSE 67–94; RESP 16–18; TEMP 36.2–36.6; O2SAT 92–100; BMI 49.6
[2021-01-21 06:51] LABS: Glucose, Whole Blood 76 mg/dL (60-115)
[2021-01-21] MEDS: Lactated Ringers 1,000 ML 50 ML IVCONT (07:05)
[2021-01-21 07:40] LABS: Glucose, Whole Blood 96 mg/dL (60-115)
--- NOTE | 2021-01-21 07:45 | PC.NURSE ---
Patients blood sugar on arrival was 76. Patient symptomatic, lightheaded and shakey. Dr. Clemons notified. New order for Dextrose IV. See new orders. PRN angio established and Dextrose administered. Blood sugar retaken before the OR, results 96. Patient stating she feels much better.
[2021-01-21 10:03] LABS: Glucose, Whole Blood 63 mg/dL (60-115)
[2021-01-21 10:31] LABS: Glucose, Whole Blood 150 mg/dL (60-115)
--- NOTE | 2021-01-21 10:33 | PM.OP ---
Brief Operative Note Date of Service: 01/21/21 Pre-op diagnosis: Spondylosis lumbar spine, low back pain. Post-op diagnosis: other (Spondylosis lumbar spine, low back pain, unknown blood dyscrasia versus arteriovenous malformation in the lumbar) Procedure: Incision lumbar area, hemostasis and closure Implants: None Surgeon: Gigi Jones MD Anesthesia: GETA Was an Switch Repairer used for this Procedure?: No Switch Repairer: Isaac Crowley Estimated blood loss (mL): 550 IV fluids (mL): 700 Pathology: none sent Condition: stable Disposition: PACU
--- NOTE | 2021-01-21 10:52 | W.PM.OPN ---
Operative Note Operative Note Date of Service: 01/21/21 Narrative: Ms Guevara is very pleasant 50 years old female who came today in the operating room for implantation of Nevro spinal cord stimulator for the treatment of axial back pain. The patient was question before the surgery and she stated that she stopped her aspirin 10 days ago. There were no other blood thinners that patient would remember if her medical record would indicate. After obtaining informed consent she was taking to the operating room where she was positioned supine on the stretcher. [place] [employer] monitors were applied and patient was induced with general anesthesia including endotracheal intubation. After that the patient was transferred on the operating table prone with all pressure points protected. Time-out was performed delineating name and date of of the patient, correct site and side of the procedure, need of antibiotics , risk of fire, need for DVT prophylaxis. Patient received 3 g of cefazolin preoperatively. Patient's lower back mid back and upper buttocks were prepped with ChloraPrep. Full body drape was performed including Ioban film. Sterilely draped C-arm was brought over the operating field and sq picture of T12 and L1 and L2 vertebras were demonstrated on the screen. Starting from the lowest point of spinous process of L2 5 cm incision was done strictly midline using 10 blade scalpel. Incision was widened using cautery and dull dissection. The incision started to bleed uncontrollably with pulsatile bleeding. Several free sutures were placed on the upper corner of the wound to stop the bleeding. The bleeding got decreased however every attempt to perform electrocautery to address minor bleeding on the patient resulted in more extensive bleeding which was pulsatile in nature. Several attempts were made to use electrocautery and hemostats to stop the bleeding in the upper corner wound. Then attention was concentrated on lower corner of the wound which was bleeding less extensively. However even there every touch of electrocautery device to the tissues caused uncontrollable pulsatile bleeding. At this moment assistance of General surgery Dr. Bahena and vascular surgery Dr. Crowley was requested. The went into the operating room and scrubbed in. The wound was examined. Total blood loss was 500 cc at that moment. The implantation of the spinal cord stimulator never was aborted at this time obviously this procedure would not need to go forward with such a dramatic blood loss. The decision was made to close the wound after application of surgisnow, several pre sutures down to the bottom of the wound were placed by Dr. Larry to stop the bleeding in the lower cord of the wound. After that thorough irrigation was performed using normal saline with vancomycin the wound was closed in 3 layers 0 Polysorb sutures 1st room, 2-0 Polysorb suture 2nd later and denice on the skin. Dry compressing dressing was applied to the wound. The patient tolerated procedure well. She was transferred to the recovery room without complications. In recovery room nurses noted that patient's fingerstick was also bleeding after puncture extensively. Patient went home without immediate complications.
[2021-01-21] MEDS: oxyCODONE HCl Immed Release 5 MG TABLET 10 MG PO (10:54)
[2021-01-21] MEDS: HYDROmorphone HCl 0.5 MG/0.5 ML SYRINGE IVPUSH ×2 (10:55→11:05)
== END 2021-01-21 12:55 | disposition home or self-care (01) ==
PROVIDERS: PCP Internal Medicine; Visit Provider Anesthesiology
PROC: (CPT 63685; principal; 2021-01-21 07:30)
DX: M96.1 Postlaminectomy syndrome, not elsewhere classified (principal); M96.810 Intraoperative hemorrhage and hematoma of a musculoskeletal structure complicating a musculoskeletal system procedure; Y83.8 Other surgical procedures as the cause of abnormal reaction of the patient, or of later complication, without mention of misadventure at the time of the procedure; Y92.234 Operating room of hospital as the place of occurrence of the external cause; Z53.09 Procedure and treatment not carried out because of other contraindication; M47.816 Spondylosis without myelopathy or radiculopathy, lumbar region; M43.16 Spondylolisthesis, lumbar region; Z98.1 Arthrodesis status; G47.33 Obstructive sleep apnea (adult) (pediatric); G25.9 Extrapyramidal and movement disorder, unspecified; I10 Essential (primary) hypertension; E11.43 Type 2 diabetes mellitus with diabetic autonomic (poly)neuropathy; Z79.84 Long term (current) use of oral hypoglycemic drugs; K74.60 Unspecified cirrhosis of liver; E66.01 Morbid (severe) obesity due to excess calories; Z68.43 Body mass index [BMI] 50.0-59.9, adult; Z99.89 Dependence on other enabling machines and devices; Z87.891 Personal history of nicotine dependence
CPT/HCPCS: 63685; 82947; 86850; 86900; 86901; 86920; J0330; J0690; J1100; J1170; J2250; J2405; J2765; J3010; J3370

== ENCOUNTER → 2021-01-27 11:13 | Outpatient (BNVA) | payer OTHER, SELFPAY | PROVIDERS: Visit Provider Anesthesiology | DX: M96.1 Postlaminectomy syndrome, not elsewhere classified (principal); M47.816 Spondylosis without myelopathy or radiculopathy, lumbar region; M43.16 Spondylolisthesis, lumbar region; M43.06 Spondylolysis, lumbar region; E66.01 Morbid (severe) obesity due to excess calories; G47.33 Obstructive sleep apnea (adult) (pediatric); K74.60 Unspecified cirrhosis of liver; Z68.43 Body mass index [BMI] 50.0-59.9, adult | CPT/HCPCS: 99212 ==

== ENCOUNTER → 2021-02-03 10:24 | Outpatient (BNVA) | payer OTHER, SELFPAY | PROVIDERS: Visit Provider Anesthesiology | DX: M47.816 Spondylosis without myelopathy or radiculopathy, lumbar region (principal); M96.1 Postlaminectomy syndrome, not elsewhere classified; M43.16 Spondylolisthesis, lumbar region; M43.06 Spondylolysis, lumbar region; E66.01 Morbid (severe) obesity due to excess calories; K74.60 Unspecified cirrhosis of liver; G47.33 Obstructive sleep apnea (adult) (pediatric) | CPT/HCPCS: 99212 ==

== ENCOUNTER → 2021-02-21 14:57 | Outpatient (BNVA) | payer OTHER, SELFPAY | PROVIDERS: PCP Internal Medicine; Visit Provider Internal Medicine Gastroenterology | DX: Z13.89 Encounter for screening for other disorder (principal) | CPT/HCPCS: Q3014 ==

== ENCOUNTER 2021-03-18 12:12 | Emergency (ER) | payer OTHER, SELFPAY ==
[2021-03-18 14:10] VITALS: BP 113/84; PULSE 81; RESP 16; TEMP 36.6; O2SAT 96; BMI 51.2
--- NOTE | 2021-03-18 14:43 | ED_ITS ---
HPI - Back Pain/Injury General Chief Complaint: Back Pain/Injury Stated Complaint: back pain Time Seen by Provider: 03/18/21 14:43 History of Present Illness HPI Narrative: Patient with chronic back pain complains of a flare similar to prior flares with severe pain on the right side of her low back with no new injury no bending injury no falling the pain does radiate to her upper thigh, she has had this pain before, there is no changes to bowel or bladder no incontinence no dysuria no fever Related Data Home Medications Medication Instructions Recorded Confirmed budesonide-formoterol HFA 160 2 puff INHALATION BID 03/04/20 02/21/21 mcg-4.5 mcg/actuation aerosol inhaler (Symbicort) dulaglutide 1.5 mg/0.5 mL 1.5 mg SUBCUT QWEEK ml 03/04/20 02/21/21 subcutaneous pen injector insulin regular hum U-500 conc See Rx Instructions SUBCUT 03/04/20 02/21/21 TIDWMEAL ml metoprolol succinate 25 mg 25 mg PO DAILY 03/04/20 02/21/21 tablet,extended release 24 hr pramipexole 1 mg tablet 1 mg PO TID tab 03/04/20 02/21/21 spironolactone 50 mg tablet 50 mg PO BID tab 03/04/20 02/21/21 fluticasone propionate 50 1 spray INTRANASAL DAILY 07/06/20 02/21/21 mcg/actuation nasal spray,suspension citalopram 10 mg tablet 1 tab PO DAILY 07/12/20 02/21/21 furosemide 20 mg tablet 60 mg PO BID 10/06/20 02/21/21 primidone 50 mg tablet 50 mg PO BEDTIME 02/21/21 02/21/21 Previous Rx's Medication Instructions Recorded ondansetron 4 mg disintegrating 4 mg PO Q6-8H PRN 10 Days #40 tab 08/27/20 tablet metoclopramide HCl 10 mg tablet 10 mg PO TID PRN #90 tab 12/17/20 abdominal binder #1 ea 01/19/21 abdominal binder (BraceAbility #1 ea 01/19/21 abdominal binder) oxycodone-acetaminophen 7.5 mg-325 1 tab PO QID PRN #24 tab 01/21/21 mg tablet (Percocet) atorvastatin 40 mg tablet 40 mg PO BEDTIME 90 Days #90 tab 02/16/21 tramadol 50 mg tablet See Rx Instructions .ROUTE 02/16/21 .COMPLEX PRN 25 Days #100 tab gabapentin 100 mg capsule 100 mg PO TID #270 cap 02/20/21 mirtazapine 7.5 mg tablet 7.5 mg PO BEDTIME 30 Days #30 tab 02/21/21 omeprazole 20 mg capsule,delayed 20 mg PO BID 30 Days #60 cap 03/10/21 release Amitiza 8 mcg capsule 8 mcg PO BID 30 Days #60 cap NS 03/11/21 (lubiprostone) lisinopril 5 mg tablet 5 mg PO DAILY #90 tab 03/14/21 lorazepam 0.5 mg tablet 0.5 mg PO TID PRN 30 Days #90 tab 03/14/21 oxycodone 5 mg tablet 5 mg PO Q6H PRN #14 tab 03/18/21 Allergies Allergy/AdvReac Type Severity Reaction Status Date / Time adhesive tape Allergy Intermediate Rash Verified 02/03/21 10:37 empagliflozin Allergy Intermediate Rash Verified 02/03/21 10:37 [From JARDIANCE] sitagliptin [From JANUVIA] AdvReac Severe Rash,nausea, Verified 02/03/21 10:37 hypoglycemia metformin [METFORMIN] AdvReac Intermediate Rash, GI Verified 02/03/21 10:37 upset Review of Systems Review of Systems: Positive for back pain Negatives are no fever no chills no dizziness or weakness no headache no neck pain no chest pain no shortness of breath no abdominal pain no nausea vomiting no incontinence no dysuria no changes to bowel or bladder no skin rash no muscle weakness Yes all other systems are reviewed and are negative PMFSH Past Medical History Source: nursing notes reviewed Medical History Abdominal pain Anxiety Asthma Atypical chest pain Benign essential hypertension Blood dyscrasia Body mass index [BMI] 50.0-59.9, adult Chronic constipation Cirrhosis of liver without ascites Depression Diabetes mellitus Diastolic dysfunction Dyslipidemia Dyspnea on effort Fatigue Fatty pancreas Gastroparesis GERD (gastroesophageal reflux disease) HTN (hypertension) Insomnia Liver cirrhosis Lumbar degenerative disc disease Morbid (severe) obesity due to excess calories Morbid obesity with BMI of 50.0-59.9, adult Nausea and vomiting Neuropathic pain of both feet Obstructive sleep apnea On beta kelsey at home Pain and swelling of right lower extremity Pars defect of lumbar spine Pedal edema Periodic limb movement disorder Postlaminectomy syndrome, lumbar Pure hypercholesterolemia Rectal bleeding Sleep apnea with use of continuous positive airway pressure (CPAP) Spondylolisthesis, lumbar region Spondylosis of lumbar spine Superficial bruising of lower leg Type 2 diabetes mellitus with diabetic autonomic (poly)neuropathy Surgical History H/O cardiac catheterization (~12/14/17) H/O section H/O colonoscopy History of appendectomy History of esophagogastroduodenoscopy (EGD) History of laryngoscopy (~02/10/19) History of lumbar discectomy History of surgery History of ventral hernia repair (~2008) Family History Family History Father Diabetes mellitus Hypertension Mother Diabetes mellitus Hypertension Uterine cancer History of heart attack Social History Social History Housing: Apartment Are you a primary pharmacist critical care to a significant other at home: No Do you presently have visiting nurse or other home services: Yes (Home Health Aide, VNA) Alcohol intake: never Patient Tobacco Use Status: Former Tobacco user Quit Date: 2005 Tobacco use type: Cigarette Years Smoked: 10 Second Hand Smoke Exposure: No Advance Directives: No Patient : No service: No Current occupational status: disabled Physical Exam Vital Signs: Vital Signs: Last Vital Signs Temp 97.9 F 03/18/21 14:10 Pulse 81 03/18/21 14:10 Resp 16 03/18/21 14:10 BP 113/84 03/18/21 14:10 Pulse Ox 96 03/18/21 14:10 Body Mass Index 51.2 General appearance is no acute distress Head is normocephalic atraumatic Neck is supple Respiratory no distress Abdomen soft nontender The back and lower lumbar paraspinal tenderness there was no redness no skin rash no focal bony tenderness no CVA tenderness The extremities were for range of motion x4 Neuro there is no focal motor sensory deficit Course Course Course Narrative: Or well-appearing patient had her pain treated with analgesics and was discharged home with recommendation to follow with primary doctor and pain management where the discussing placement of a nerve stimulor Discharge Plan Discharge Clinical Impression: Back pain Patient Disposition: Home, Self-Care Additional Instructions: Follow with primary doctor and back specialist for further evaluation Return any time if worse Prescriptions: New oxycodone 5 mg tablet 5 mg PO Q6H PRN (Reason: pain) Qty: 14 RF: 0 No Action metoclopramide HCl 10 mg tablet 10 mg PO TID PRN (Reason: for nausea/vomiting) Qty: 90 RF: 3 (DME) BraceAbility abdominal binder Kit See Rx Instructions .Route Qty: 1 RF: 0 oxycodone-acetaminophen [Percocet] 7.5-325 mg tablet 1 tab PO QID PRN (Reason: pain) Qty: 24 RF: 0 atorvastatin 40 mg tablet 40 mg PO BEDTIME 90 Days Qty: 90 RF: 1 tramadol 50 mg tablet See Rx Instructions .ROUTE .COMPLEX PRN (Reason: pain) 25 Days Qty: 100 RF: 1 gabapentin 100 mg capsule 100 mg PO TID Qty: 270 RF: 0 omeprazole 20 mg capsule,delayed release(DR/EC) 20 mg PO BID 30 Days Qty: 60 RF: 3 lubiprostone [Amitiza] 8 mcg capsule 8 mcg PO BID 30 Days Qty: 60 RF: 3 lorazepam 0.5 mg tablet 0.5 mg PO TID PRN (Reason: Anxiety) 30 Days Qty: 90 RF: 0 lisinopril 5 mg tablet 5 mg PO DAILY Qty: 90 RF: 2 citalopram 10 mg tablet 1 tab PO DAILY RF: 0 furosemide 20 mg tablet 60 mg PO BID RF: 0 pramipexole 1 mg tablet 1 mg PO TID RF: 0 dulaglutide 1.5 mg/0.5 mL pen injector 1.5 mg subcut QWEEK RF: 0 budesonide-formoterol [Symbicort] 160-4.5 mcg/actuation HFA aerosol inhaler 2 puff inhalation BID RF: 0 spironolactone 50 mg tablet 50 mg PO BID RF: 0 metoprolol succinate 25 mg tablet extended release 24 hr 25 mg PO DAILY RF: 0 insulin regular hum U-500 conc 500 unit/mL (3 mL) insulin pen See Rx Instructions subcut TIDWMEAL RF: 0 ondansetron 4 mg tablet,disintegrating 4 mg PO Q6-8H PRN (Reason: nausea and vomiting) 10 Days Qty: 40 RF: 0 fluticasone propionate 50 mcg/actuation spray,suspension 1 spray intranasal DAILY RF: 0 (DME) abdominal binder Kit See Rx Instructions .Route Qty: 1 RF: 0 primidone 50 mg tablet 50 mg PO BEDTIME RF: 0 mirtazapine 7.5 mg tablet 7.5 mg PO BEDTIME 30 Days Qty: 30 RF: 1 Interventions: ED Discharge Assessment Last Done: 03/18/21 15:30 Discharge Date/Time: 03/18/21 15:31
[2021-03-18] MEDS: Ketorolac Tromethamine 15 MG/ML VIAL 30 MG IM (15:13)
[2021-03-18] MEDS: oxyCODONE HCl Immed Release 5 MG TABLET 10 MG PO (15:14)
== END 2021-03-18 15:31 | disposition home or self-care (01) ==
PROVIDERS: Emergency Provider Emergency Medicine; PCP Internal Medicine
DX: M54.50 Low back pain, unspecified (principal); I10 Essential (primary) hypertension; E11.9 Type 2 diabetes mellitus without complications
CPT/HCPCS: 96372; 99283; 99284; J1885

== ENCOUNTER → 2021-04-26 09:25 | Outpatient (BNVA) | payer OTHER, SELFPAY | PROVIDERS: PCP Internal Medicine; Visit Provider Surgery Vascular Surgery | DX: I73.9 Peripheral vascular disease, unspecified (principal) | CPT/HCPCS: 99212 ==

== ENCOUNTER 2021-05-02 16:28 | Outpatient (REF) | payer OTHER, SELFPAY ==
[2021-05-02 17:51] LABS: Blood Urea Nitrogen 20 mg/dL (9-16); Estimated Glomerular Filt Rate 42
== END 2021-05-02 16:29 | disposition home or self-care (01) ==
LOC: HO.LAB 16:28
PROVIDERS: Visit Provider Surgery Vascular Surgery
DX: I73.9 Peripheral vascular disease, unspecified (principal)
CPT/HCPCS: 36415; 82565; 84520

== ENCOUNTER 2021-05-05 08:42 | Outpatient (REF) | payer OTHER, SELFPAY ==
--- NOTE | ~2021-05-05 | CT_ITS ---
EXAMINATION: CT ANGIOGRAM ABDOMEN AND PELVIS CLINICAL INFORMATION: Peripheral vascular disease. COMPARISON: CT abdomen and pelvis 12/09/2019. TECHNIQUE: Multiple axial images were obtained through the abdomen and pelvis following the administration of 80 mL of Omnipaque 350 intravenous contrast. 3D POSTPROCESSING: Multiple 3-D angiographic images were processed from the initial data set by the medical technologist clinical at the modality workstation under concurrent physician supervision. This CT examination was performed using dose optimization techniques as appropriate, variously including the following: *Automated exposure control *Adjustment of mA and/or kV according to patient size (this includes techniques or standardized protocols for targeted exams where dose is matched to indication/reason for exam; i.e. extremities or head) *Use of iterative reconstruction technique DLP: 488 mGy-cm FINDINGS: Lung bases are clear. Fatty liver. Gallbladder unremarkable. Pancreas appears normal. No biliary or pancreatic ductal dilatation. Spleen is normal in size. No adrenal mass. Symmetric nephrograms. No renal mass. No nephrolithiasis or hydronephrosis. The uterus is unremarkable. No pelvic mass. The urinary bladder is decompressed. Small hiatal hernia. Small bowel is normal in caliber. Mild diverticulosis of the sigmoid colon. No adenopathy. The abdominal aorta is normal in caliber. There is mild atherosclerotic disease. The celiac artery is patent. The superior mesenteric artery is patent. The inferior mesenteric artery is patent. The single right renal artery is patent. The single left renal artery is patent. No significant stenotic vascular disease seen. Common iliac arteries are normal in caliber and widely patent. The external iliac and common femoral arteries are normal in caliber and widely patent. The internal iliac arteries are unremarkable. Degenerative changes in the spine. Most prominent at L2-L3. Anterior fusion at L5-S1. CT/CT angio abdomen pelvis IMPRESSION: Normal caliber abdominal aorta with mild atherosclerotic disease. No hemodynamically significant aortoiliac peripheral arterial disease. Fleischner guidelines were followed.
[2021-05-05] MEDS: iohexoL 350 MG/ML 100 ML INFUS..BTL IV (09:37)
== END 2021-05-05 08:43 | disposition home or self-care (01) ==
LOC: HO.CT 08:42
PROVIDERS: PCP Internal Medicine; Visit Provider Surgery Vascular Surgery
DX: I73.9 Peripheral vascular disease, unspecified (principal)
CPT/HCPCS: 74174; Q9967

== ENCOUNTER → 2021-06-01 15:11 | Outpatient (BNVA) | payer OTHER, SELFPAY | PROVIDERS: PCP Internal Medicine; Visit Provider Anesthesiology | DX: I73.9 Peripheral vascular disease, unspecified (principal); M96.1 Postlaminectomy syndrome, not elsewhere classified; K31.84 Gastroparesis | CPT/HCPCS: Q3014 ==

== ENCOUNTER 2021-07-20 08:27 | Outpatient (REF) | payer OTHER, SELFPAY ==
--- NOTE | ~2021-07-20 | US_ITS ---
EXAMINATION: US ABDOMEN COMPLETE CLINICAL INFORMATION: Right upper quadrant pain. COMPARISON: Limited abdominal ultrasound 11/27/2020 and ultrasound abdomen complete 09/28/2020. CT abdomen and pelvis 12/09/2019. TECHNIQUE: Real-time imaging of the abdominal viscera. FINDINGS: PANCREAS: Normal. ABDOMINAL AORTA: The proximal, mid, and distal segments are normal in caliber. INFERIOR VENA CAVA: Visualized portions are normal. LIVER: The left hepatic lobe is enlarged. The liver contour is normal. There is diffuse increased echogenicity. No focal hepatic lesion. There is no intrahepatic biliary duct dilatation seen. GALLBLADDER: The gallbladder is physiologically distended without evidence of stones, sludge, wall thickening or pericholecystic fluid. There are 2 echogenic nonmobile polyps. The largest measures 0.4 x 0.3 x 0.3 cm. COMMON BILE DUCT: Normal in caliber measuring 0.2 cm in diameter. RIGHT KIDNEY: Normal. No hydronephrosis. No renal calculi or focal parenchymal lesions. The kidney measures 11.1 cm in maximum dimension. LEFT KIDNEY: Normal. No hydronephrosis. No renal calculi or focal parenchymal lesions. The kidney measures 11.4 cm in maximum dimension. SPLEEN: Normal. The spleen measures 12.1 cm in maximum dimension. FREE FLUID: None. US/US abdomen complete IMPRESSION: 2 nonmobile echogenic polyps. Mild hepatic steatosis with enlarged left hepatic lobe. No focal lesion seen. Rest of the abdominal ultrasound is unremarkable.
[2021-07-20 08:55] LABS: MANUAL DIFF FLAG NO
[2021-07-20 09:18] LABS: Basophils Absolute Auto 0.1 X10*3/uL (0.0-0.2); Basophils Percent Auto 0.7 % (0-2); Eosinophils Absolute Auto 0.4 X10*3/uL (0.0-0.4); Eosinophils Percent Auto 3.7 % (0-4); Hematocrit 42.3 % (37.0-47.0); Hemoglobin 13.8 g/dl (12.0-16.0); Imm Gran Abs Auto 0.06 X10*3/uL (0.00-0.03); Imm Gran Pct Auto 0.6 % (0.0-0.4); Lymphocytes Absolute Auto 2.5 X10*3/uL (1.2-4.9); Lymphocytes Percent Auto 24.9 % (20-40); Mean Corpuscular HGB Conc 32.6 g/dl (31.0-35.0); Mean Corpuscular Hemoglobin 28.3 pg (27.0-33.0); Mean Corpuscular Volume 86.7 fL (80.0-98.0); Mean Platelet Volume 10.8 fL (9.4-12.3); Monocytes Absolute Auto 0.7 X10*3/uL (0.1-1.2); Monocytes Percent Auto 6.7 % (2-11); Neutrophils Absolute Auto 6.4 x10*3/uL (2.0-8.3); Neutrophils Percent Auto 63.4 % (45-73); Platelet Count 359 X10*3/uL (160-400); Red Blood Count 4.88 X10*6/uL (4.20-5.50); Red Cell Distribution Width 13.2 % (11.0-16.0)
[2021-07-20 09:23] LABS: Estimated Average Glucose 269 mg/dL
[2021-07-20 09:52] LABS: B Type Natriuretic Peptide 10 pg/mL (<100)
[2021-07-20 10:12] LABS: Vitamin D 25-OH Total 28.1 ng/mL (>30)
[2021-07-20 10:14] LABS: Alanine Aminotransferase 42 U/L (0-31); Albumin Level 4.2 g/dL (3.5-5.0); Alkaline Phosphatase 102 U/L (39-117); Anion Gap 15 (12-20); Aspartate Amino Transferase 23 U/L (5-31); Bilirubin Total 0.8 mg/dL (0.0-1.0); Blood Urea Nitrogen 29 mg/dL (9-16); Calcium 10.8 mg/dL (8.4-10.2); Carbon Dioxide 26 mmol/L (22-29); Chloride 93 mmol/L (96-108); Cholesterol 109 mg/dL; Estimated Glomerular Filt Rate 36; Glucose Random 416 mg/dL (60-115); HDL Cholesterol 27 mg/dL; LDL Cholesterol Calculated 53 mg/dl; Potassium 5.3 mmol/L (3.3-5.1); Sodium 129 mmol/L (135-145); Triglycerides 147 mg/dL
[2021-07-20 10:25] LABS: Folate 12.8 ng/mL (> or = 4.0); Vitamin B12 535 pg/mL (200-900)
[2021-07-20 10:34] LABS: Appearance Urine CLOUDY; Color Urine YELLOW; Glucose Urine UA 250 MG/DL (NEG); Leukocyte Esterase Urine NEG (NEG); Nitrite Urine NEG (NEG); PH 5.5 (5.0-8.0); Specific Gravity - Urine >= 1.030 (1.005-1.025); Urine Blood NEG (NEG); Urine Ketones NEG (NEG); Urine Protein TRACE MG/DL (NEG-TRACE)
[2021-07-20 11:18] LABS: Creatinine Urine 259.73 mg/dL; Microalbum/Creatinine Ratio Ur 6.9 ug/mg cr
== END 2021-07-20 08:28 | disposition home or self-care (01) ==
LOC: HO.US 08:27
PROVIDERS: PCP Internal Medicine; Visit Provider Internal Medicine
DX: I11.9 Hypertensive heart disease without heart failure (principal); R10.11 Right upper quadrant pain; G57.93 Unspecified mononeuropathy of bilateral lower limbs; E78.00 Pure hypercholesterolemia, unspecified; E11.9 Type 2 diabetes mellitus without complications; E55.9 Vitamin D deficiency, unspecified
CPT/HCPCS: 36415; 76700; 80053; 80061; 81003; 82043; 82306; 82607; 82746; 83036; 83880; 84443; 85025

== ENCOUNTER → 2021-07-26 14:21 | Outpatient (BNVA) | payer OTHER, SELFPAY | PROVIDERS: PCP Internal Medicine; Visit Provider Surgery Vascular Surgery | DX: I73.9 Peripheral vascular disease, unspecified (principal) | CPT/HCPCS: 99212 ==

== ENCOUNTER 2021-09-20 15:12 | Outpatient (REF) | payer OTHER, SELFPAY ==
[2021-09-20 15:24] LABS: MANUAL DIFF FLAG NO
[2021-09-20 15:32] LABS: Basophils Absolute Auto 0.1 X10*3/uL (0.0-0.2); Basophils Percent Auto 0.5 % (0-2); Eosinophils Absolute Auto 0.4 X10*3/uL (0.0-0.4); Eosinophils Percent Auto 3.3 % (0-4); Hematocrit 38.8 % (37.0-47.0); Hemoglobin 12.9 g/dl (12.0-16.0); Imm Gran Abs Auto 0.07 X10*3/uL (0.00-0.03); Imm Gran Pct Auto 0.6 % (0.0-0.4); Lymphocytes Absolute Auto 1.9 X10*3/uL (1.2-4.9); Lymphocytes Percent Auto 16.8 % (20-40); Mean Corpuscular HGB Conc 33.2 g/dl (31.0-35.0); Mean Corpuscular Hemoglobin 28.8 pg (27.0-33.0); Mean Corpuscular Volume 86.6 fL (80.0-98.0); Mean Platelet Volume 10.9 fL (9.4-12.3); Monocytes Absolute Auto 0.6 X10*3/uL (0.1-1.2); Monocytes Percent Auto 5.3 % (2-11); Neutrophils Absolute Auto 8.1 x10*3/uL (2.0-8.3); Neutrophils Percent Auto 73.5 % (45-73); Platelet Count 277 X10*3/uL (160-400); Red Blood Count 4.48 X10*6/uL (4.20-5.50); White Blood Count 11.1 X10*3/uL (4.8-10.8)
[2021-09-20 16:04] LABS: Alanine Aminotransferase 39 U/L (0-31); Albumin Level 4.3 g/dL (3.5-5.0); Alkaline Phosphatase 104 U/L (39-117); Anion Gap 17 (12-20); Aspartate Amino Transferase 25 U/L (5-31); Bilirubin Total 0.8 mg/dL (0.0-1.0); Blood Urea Nitrogen 26 mg/dL (9-16); Calcium 10.3 mg/dL (8.4-10.2); Carbon Dioxide 24 mmol/L (22-29); Chloride 94 mmol/L (96-108); Estimated Glomerular Filt Rate 31; Glucose Fasting 590 mg/dL (60-99); Lipase 42 U/L (8-78); Potassium 5.5 mmol/L (3.3-5.1); Sodium 129 mmol/L (135-145); Total Protein 8.2 g/dL (6.5-8.0)
[2021-09-20 16:16] LABS: Appearance Urine CLEAR; Color Urine YELLOW; Glucose Urine UA 500 MG/DL (NEG); Leukocyte Esterase Urine NEG (NEG); Nitrite Urine NEG (NEG); PH 5.5 (5.0-8.0); Specific Gravity - Urine 1.025 (1.005-1.025); Urine Blood NEG (NEG); Urine Ketones NEG (NEG); Urine Protein NEG (NEG-TRACE)
== END 2021-09-20 15:13 | disposition home or self-care (01) ==
LOC: HO.LAB 15:12
PROVIDERS: PCP Internal Medicine; Visit Provider Internal Medicine
DX: R10.13 Epigastric pain (principal); R11.2 Nausea with vomiting, unspecified; E11.42 Type 2 diabetes mellitus with diabetic polyneuropathy; E78.00 Pure hypercholesterolemia, unspecified; I10 Essential (primary) hypertension; Z79.4 Long term (current) use of insulin
CPT/HCPCS: 36415; 80053; 81003; 83690; 85025

== ENCOUNTER 2021-10-06 14:37 | Emergency (ER) | payer OTHER, SELFPAY ==
--- NOTE | ~2021-10-06 | XR_ITS ---
EXAMINATION: XR CHEST CLINICAL INFORMATION: Chest pain. COMPARISON: 09/09/2020 chest radiograph. TECHNIQUE: Frontal view of the chest was obtained. FINDINGS: The lungs are clear. The heart and mediastinal structures are unremarkable. XR/XR chest 1V IMPRESSION: No acute cardiopulmonary process.
--- NOTE | 2021-10-06 14:43 | ECG_ITS ---
Test Reason : cp Blood Pressure : / mmHG Vent. Rate : 121 BPM Atrial Rate : 121 BPM P-R Int : 168 ms QRS Dur : 080 ms QT Int : 302 ms P-R-T Axes : 037 011 051 degrees QTc Int : 428 ms Sinus tachycardia with occasional Premature ventricular complexes Otherwise normal ECG When compared with ECG of 09-SEP-2020 02:26, Premature ventricular complexes are now Present T wave amplitude has increased in Anterior leads Referred By: Generic ED Physician Electronically Signed By:SUSANA HERNANDEZ
[2021-10-06 14:50] VITALS: BP 142/84; PULSE 120; RESP 20; TEMP 36.6; O2SAT 95; BMI 50.5
[2021-10-06 15:08] LABS: MANUAL DIFF FLAG NO
[2021-10-06 15:09] LABS: Basophils Absolute Auto 0.1 X10*3/uL (0.0-0.2); Basophils Percent Auto 0.7 % (0-2); Eosinophils Absolute Auto 0.3 X10*3/uL (0.0-0.4); Eosinophils Percent Auto 2.3 % (0-4); Hematocrit 42.3 % (37.0-47.0); Hemoglobin 13.9 g/dl (12.0-16.0); Imm Gran Abs Auto 0.07 X10*3/uL (0.00-0.03); Imm Gran Pct Auto 0.6 % (0.0-0.4); Lymphocytes Absolute Auto 1.8 X10*3/uL (1.2-4.9); Lymphocytes Percent Auto 15.7 % (20-40); Mean Corpuscular HGB Conc 32.9 g/dl (31.0-35.0); Mean Corpuscular Hemoglobin 28.5 pg (27.0-33.0); Mean Corpuscular Volume 86.7 fL (80.0-98.0); Mean Platelet Volume 11.3 fL (9.4-12.3); Monocytes Absolute Auto 0.6 X10*3/uL (0.1-1.2); Monocytes Percent Auto 5.4 % (2-11); Neutrophils Absolute Auto 8.7 x10*3/uL (2.0-8.3); Neutrophils Percent Auto 75.3 % (45-73); Platelet Count 303 X10*3/uL (160-400); Red Blood Count 4.88 X10*6/uL (4.20-5.50); Red Cell Distribution Width 13.2 % (11.0-16.0); White Blood Count 11.5 X10*3/uL (4.8-10.8)
[2021-10-06 15:25] VITALS: BP 116/81; PULSE 114; RESP 20; TEMP 37.1; O2SAT 93
[2021-10-06 15:28] LABS: Anion Gap 15 (12-20); Blood Urea Nitrogen 24 mg/dL (9-16); Calcium 9.5 mg/dL (8.4-10.2); Carbon Dioxide 22 mmol/L (22-29); Chloride 96 mmol/L (96-108); Estimated Glomerular Filt Rate 33; Glucose Random 604 mg/dL (60-115); Potassium 5.4 mmol/L (3.3-5.1); Sodium 128 mmol/L (135-145)
--- NOTE | 2021-10-06 15:28 | ED.CHESTPAIN ---
HPI - Chest Pain General Chief Complaint: Chest Pain Stated Complaint: chest pain Time Seen by Provider: 10/06/21 15:28 Source: patient Mode of arrival: ambulatory Limitations: no limitations History of Present Illness HPI narrative: Patient 51 years old diabetic asthmatic hypertension with history of anxiety on heavy doses of insulin which she missed early in the morning today complaining of mid chest pain for last 5 days with dry cough no fever no chills patient a cardiac catheterization in 2018 also complaining of mild short of breath and increased fatigue patient check blood sugar earlier today was 280 on arrival it was 604 Related Data Home Medications Medication Instructions Recorded Confirmed budesonide-formoterol HFA 160 2 puff INHALATION BID 03/04/20 09/19/21 mcg-4.5 mcg/actuation aerosol inhaler (Symbicort) dulaglutide 1.5 mg/0.5 mL 1.5 mg SUBCUT QWEEK ml 03/04/20 09/19/21 subcutaneous pen injector insulin regular hum U-500 conc See Rx Instructions SUBCUT 03/04/20 09/19/21 TIDWMEAL ml pramipexole 1 mg tablet 1 mg PO TID tab 03/04/20 09/19/21 fluticasone propionate 50 1 spray INTRANASAL DAILY 07/06/20 09/19/21 mcg/actuation nasal spray,suspension citalopram 10 mg tablet 1 tab PO DAILY 07/12/20 09/19/21 furosemide 20 mg tablet 60 mg PO BID 10/06/20 09/19/21 primidone 50 mg tablet 50 mg PO BEDTIME 02/21/21 09/19/21 meloxicam 15 mg tablet 15 mg PO DAILY 09/19/21 09/19/21 spironolactone 100 mg tablet 100 mg PO BID 09/19/21 09/19/21 Previous Rx's Medication Instructions Recorded ondansetron 4 mg disintegrating 4 mg PO Q6-8H PRN 10 Days #40 tab 08/27/20 tablet abdominal binder #1 ea 01/19/21 abdominal binder (BraceAbility #1 ea 01/19/21 abdominal binder) gabapentin 100 mg capsule 100 mg PO TID #270 cap 02/20/21 mirtazapine 7.5 mg tablet 7.5 mg PO BEDTIME 30 Days #30 tab 02/21/21 lisinopril 5 mg tablet 5 mg PO DAILY #90 tab 03/14/21 Amitiza 8 mcg capsule 8 mcg PO BID #60 cap NS 07/27/21 (lubiprostone) omeprazole 20 mg capsule,delayed 20 mg PO BID #60 cap 07/27/21 release atorvastatin 40 mg tablet 40 mg PO BEDTIME 90 Days #90 tab 08/26/21 metoclopramide HCl 10 mg tablet 10 mg PO TID PRN #90 tab 08/26/21 tramadol 50 mg tablet See Rx Instructions .ROUTE 08/29/21 .COMPLEX PRN 25 Days #100 tab oxycodone 5 mg tablet 5 mg PO Q6-8H PRN 7 Days #28 tab 09/19/21 lorazepam 0.5 mg tablet 0.5 mg PO TID PRN 30 Days #90 tab 09/23/21 Allergies Allergy/AdvReac Type Severity Reaction Status Date / Time adhesive tape Allergy Intermediate Rash Verified 09/19/21 15:26 empagliflozin Allergy Intermediate Rash Verified 09/19/21 15:26 [From JARDIANCE] sitagliptin [From JANUVIA] AdvReac Severe Rash,nausea, Verified 09/19/21 15:26 hypoglycemia metformin [METFORMIN] AdvReac Intermediate Rash, GI Verified 09/19/21 15:26 upset Review of Systems Review of Systems: Yes all other systems are reviewed and are negative PMFSH Past Medical History Medical History Abdominal pain Anxiety Asthma Atypical chest pain Benign essential hypertension Blood dyscrasia Body mass index [BMI] 50.0-59.9, adult Chronic constipation Cirrhosis of liver without ascites Depression Diabetes mellitus Diastolic dysfunction Dyslipidemia Dyspnea on effort Fatigue Fatty pancreas Gastroparesis GERD (gastroesophageal reflux disease) HTN (hypertension) Insomnia Liver cirrhosis Lumbar degenerative disc disease Morbid (severe) obesity due to excess calories Morbid obesity with BMI of 50.0-59.9, adult Nausea and vomiting Neuropathic pain of both feet Obstructive sleep apnea On beta kelsey at home Pain and swelling of right lower extremity Pars defect of lumbar spine Pedal edema Periodic limb movement disorder Postlaminectomy syndrome, lumbar Pure hypercholesterolemia Rectal bleeding Sleep apnea with use of continuous positive airway pressure (CPAP) Spondylolisthesis, lumbar region Spondylosis of lumbar spine Superficial bruising of lower leg Type 2 diabetes mellitus with diabetic autonomic (poly)neuropathy Surgical History H/O cardiac catheterization (~12/14/17) H/O section H/O colonoscopy History of appendectomy History of esophagogastroduodenoscopy (EGD) History of laryngoscopy (~02/10/19) History of lumbar discectomy History of surgery History of ventral hernia repair (~2008) Family History Family History Father Diabetes mellitus Hypertension Mother Diabetes mellitus Hypertension Uterine cancer History of heart attack Social History Social History Housing: Apartment Are you a primary auto care center manager to a significant other at home: No Do you presently have visiting nurse or other home services: Yes (Home Health Aide, VNA) Alcohol intake: never Patient Tobacco Use Status: Former Tobacco user Quit Date: 2005 Tobacco use type: Cigarette Years Smoked: 10 e-Cigarette/Vaping Use: Never Used Second Hand Smoke Exposure: No Advance Directives: No Advance Directives Information Provided: No service: No Current occupational status: disabled Cognitive needs: No Hearing needs: No Vision needs: No Physical Exam Vital Signs: Vital Signs: Last Vital Signs Temp 98.7 F 10/06/21 18:37 Pulse 85 10/06/21 18:37 Resp 16 10/06/21 18:37 BP 110/76 10/06/21 18:37 Pulse Ox 96 10/06/21 18:37 BMI result Body Mass Index 50.5 Appearance: Alert. Oriented X3. No acute distress. Eyes: No pallor/. icterus ENT: Pharynx normal. Oral Mucosa moist Neck: Normal inspection. Neck supple. CVS: Normal heart rate and rhythm. Pulses normal. Respiratory: No respiratory distress. Equal air entry bilateral, no wheezing/rales/rhonchi Abdomen: Soft and nontender. Bowel sounds are present, no mass palpable, no CVA tenderness Skin: Skin warm and dry. Normal skin color. Normal skin turgor. Extremities: No lower extremity edema. No calf tenderness Neuro: Oriented X 3. No motor deficit. No sensory deficit.No cerebellar signs , cranial nerves II-XII intact MDM - Chest Pain MDM Narrative Medical decision making narrative: Patient anxiety diabetes intermittent chest pain for last few days high since troponin negative EKG without any acute changes noticed to have a high blood sugar without ketosis some that in the past patient using high dose of insulin advised to continue same dose at home not to skip any doses of insulin which she did today. Blood sugar improved to 464 Lab Data Attestation: I reviewed the patient's lab results. Result diagrams: 10/06/21 15:01 10/06/21 15: Labs: Lab Results 10/06/21 10/06/21 10/06/21 Range/Units 15: 15: 15:01 WBC 11.5 H (4.8-10.8) X10*3/uL RBC 4.88 (4.20-5.50) X10*6/uL Hgb 13.9 (12.0-16.0) g/dl Hct 42.3 (37.0-47.0) % MCV 86.7 (80.0-98.0) fL MCH 28.5 (27.0-33.0) pg MCHC 32.9 (31.0-35.0) g/dl RDW 13.2 (11.0-16.0) % Plt Count 303 (160-400) X10*3/uL MPV 11.3 (9.4-12.3) fL Immature Gran % (Auto) 0.6 H (0.0-0.4) % Neut % (Auto) 75.3 H (45-73) % Lymph % (Auto) 15.7 L (20-40) % Gilliam % (Auto) 5.4 (2-11) % Eos % (Auto) 2.3 (0-4) % Baso % (Auto) 0.7 (0-2) % Lymph # (Auto) 1.8 (1.2-4.9) X10*3/uL Gilliam # (Auto) 0.6 (0.1-1.2) X10*3/uL Eos # (Auto) 0.3 (0.0-0.4) X10*3/uL Baso # (Auto) 0.1 (0.0-0.2) X10*3/uL Abs Immat Gran (auto) 0.07 H (0.00-0.03) X10*3/uL Absolute Neuts (auto) 8.7 H (2.0-8.3) x10*3/uL Absolute Nucleated RBC 0.000 (0.0-0.012) X10*3/uL Nucleated RBC % (auto) 0.0 (0.0-0.2) /100WBC VBG pH (7.32-7.43) VBG pCO2 mmHg VBG pO2 mmHg VBG HCO3 (22-26) mmol/L VBG O2 Saturation % VBG Base Excess mmol/L Sodium 128 L (135-145) mmol/L Potassium 5.4 H (3.3-5.1) mmol/L Chloride 96 (96-108) mmol/L Carbon Dioxide 22 (22-29) mmol/L Anion Gap 15 (12-20) BUN 24 H (9-16) mg/dL Creatinine 1.63 H (0.5-1.4) mg/dL Estim Creat Clear Calc 53.0 Estimated GFR 33 POC Glucose (60-115) mg/dL Random Glucose 604 H* (60-115) mg/dL Calcium 9.5 D (8.4-10.2) mg/dL Troponin I High Sens < 3.5 (<3.5-17.0) ng/L B-Natriuretic Peptide < 10 (<100) pg/mL Acetone, Qual (Negative) COVID-19 (VANESSA) (Negative) COVID-19 Clin Com Influenza Type A (CYRIL) (Negative) Influenza Type B (CYRIL) (Negative) Influenza A & B Note 10/06/21 10/06/21 10/06/21 Range/Units 15:01 15:01 15:54 WBC (4.8-10.8) X10*3/uL RBC (4.20-5.50) X10*6/uL Hgb (12.0-16.0) g/dl Hct (37.0-47.0) % MCV (80.0-98.0) fL MCH (27.0-33.0) pg MCHC (31.0-35.0) g/dl RDW (11.0-16.0) % Plt Count (160-400) X10*3/uL MPV (9.4-12.3) fL Immature Gran % (Auto) (0.0-0.4) % Neut % (Auto) (45-73) % Lymph % (Auto) (20-40) % Gilliam % (Auto) (2-11) % Eos % (Auto) (0-4) % Baso % (Auto) (0-2) % Lymph # (Auto) (1.2-4.9) X10*3/uL Gilliam # (Auto) (0.1-1.2) X10*3/uL Eos # (Auto) (0.0-0.4) X10*3/uL Baso # (Auto) (0.0-0.2) X10*3/uL Abs Immat Gran (auto) (0.00-0.03) X10*3/uL Absolute Neuts (auto) (2.0-8.3) x10*3/uL Absolute Nucleated RBC (0.0-0.012) X10*3/uL Nucleated RBC % (auto) (0.0-0.2) /100WBC VBG pH (7.32-7.43) VBG pCO2 mmHg VBG pO2 mmHg VBG HCO3 (22-26) mmol/L VBG O2 Saturation % VBG Base Excess mmol/L Sodium (135-145) mmol/L Potassium (3.3-5.1) mmol/L Chloride (96-108) mmol/L Carbon Dioxide (22-29) mmol/L Anion Gap (12-20) BUN (9-16) mg/dL Creatinine (0.5-1.4) mg/dL Estim Creat Clear Calc Estimated GFR POC Glucose 579 H* (60-115) mg/dL Random Glucose (60-115) mg/dL Calcium (8.4-10.2) mg/dL Troponin I High Sens (<3.5-17.0) ng/L B-Natriuretic Peptide (<100) pg/mL Acetone, Qual (Negative) COVID-19 (VANESSA) Negative (Negative) COVID-19 Clin Com See Note Influenza Type A (CYRIL) Negative (Negative) Influenza Type B (CYRIL) Negative (Negative) Influenza A & B Note See Note 10/06/21 10/06/21 10/06/21 Range/Units 16:01 16:04 17:14 WBC (4.8-10.8) X10*3/uL RBC (4.20-5.50) X10*6/uL Hgb (12.0-16.0) g/dl Hct (37.0-47.0) % MCV (80.0-98.0) fL MCH (27.0-33.0) pg MCHC (31.0-35.0) g/dl RDW (11.0-16.0) % Plt Count (160-400) X10*3/uL MPV (9.4-12.3) fL Immature Gran % (Auto) (0.0-0.4) % Neut % (Auto) (45-73) % Lymph % (Auto) (20-40) % Gilliam % (Auto) (2-11) % Eos % (Auto) (0-4) % Baso % (Auto) (0-2) % Lymph # (Auto) (1.2-4.9) X10*3/uL Gilliam # (Auto) (0.1-1.2) X10*3/uL Eos # (Auto) (0.0-0.4) X10*3/uL Baso # (Auto) (0.0-0.2) X10*3/uL Abs Immat Gran (auto) (0.00-0.03) X10*3/uL Absolute Neuts (auto) (2.0-8.3) x10*3/uL Absolute Nucleated RBC (0.0-0.012) X10*3/uL Nucleated RBC % (auto) (0.0-0.2) /100WBC VBG pH 7.37 (7.32-7.43) VBG pCO2 38 mmHg VBG pO2 51 mmHg VBG HCO3 22 (22-26) mmol/L VBG O2 Saturation 75.0 % VBG Base Excess -2.1 mmol/L Sodium (135-145) mmol/L Potassium (3.3-5.1) mmol/L Chloride (96-108) mmol/L Carbon Dioxide (22-29) mmol/L Anion Gap (12-20) BUN (9-16) mg/dL Creatinine (0.5-1.4) mg/dL Estim Creat Clear Calc Estimated GFR POC Glucose 492 H* (60-115) mg/dL Random Glucose (60-115) mg/dL Calcium (8.4-10.2) mg/dL Troponin I High Sens (<3.5-17.0) ng/L B-Natriuretic Peptide (<100) pg/mL Acetone, Qual Negative (Negative) COVID-19 (VANESSA) (Negative) COVID-19 Clin Com Influenza Type A (CYRIL) (Negative) Influenza Type B (CYRIL) (Negative) Influenza A & B Note 10/06/21 Range/Units 18:25 WBC (4.8-10.8) X10*3/uL RBC (4.20-5.50) X10*6/uL Hgb (12.0-16.0) g/dl Hct (37.0-47.0) % MCV (80.0-98.0) fL MCH (27.0-33.0) pg MCHC (31.0-35.0) g/dl RDW (11.0-16.0) % Plt Count (160-400) X10*3/uL MPV (9.4-12.3) fL Immature Gran % (Auto) (0.0-0.4) % Neut % (Auto) (45-73) % Lymph % (Auto) (20-40) % Gilliam % (Auto) (2-11) % Eos % (Auto) (0-4) % Baso % (Auto) (0-2) % Lymph # (Auto) (1.2-4.9) X10*3/uL Gilliam # (Auto) (0.1-1.2) X10*3/uL Eos # (Auto) (0.0-0.4) X10*3/uL Baso # (Auto) (0.0-0.2) X10*3/uL Abs Immat Gran (auto) (0.00-0.03) X10*3/uL Absolute Neuts (auto) (2.0-8.3) x10*3/uL Absolute Nucleated RBC (0.0-0.012) X10*3/uL Nucleated RBC % (auto) (0.0-0.2) /100WBC VBG pH (7.32-7.43) VBG pCO2 mmHg VBG pO2 mmHg VBG HCO3 (22-26) mmol/L VBG O2 Saturation % VBG Base Excess mmol/L Sodium (135-145) mmol/L Potassium (3.3-5.1) mmol/L Chloride (96-108) mmol/L Carbon Dioxide (22-29) mmol/L Anion Gap (12-20) BUN (9-16) mg/dL Creatinine (0.5-1.4) mg/dL Estim Creat Clear Calc Estimated GFR POC Glucose 464 H* (60-115) mg/dL Random Glucose (60-115) mg/dL Calcium (8.4-10.2) mg/dL Troponin I High Sens (<3.5-17.0) ng/L B-Natriuretic Peptide (<100) pg/mL Acetone, Qual (Negative) COVID-19 (VANESSA) (Negative) COVID-19 Clin Com Influenza Type A (CYRIL) (Negative) Influenza Type B (CYRIL) (Negative) Influenza A & B Note ECG Data ECG #1: Attestation: I personally reviewed and interpreted this ECG as follows: Interpretation: Sinus tachycardia heart rate 121 beats per occasional PVCs of interval normal axis no acute ischemic change Discharge Plan Discharge Clinical Impression: Diabetes mellitus with hyperglycemia, Chest pain Patient Disposition: Home, Self-Care Instructions: Chest Pain (ED), Diabetic Hyperglycemia (ED) Additional Instructions: Drink plenty of fluids Take your insulin on time and follow up with diabetic specialist Prescriptions: No Action (DME) BraceAbility abdominal binder Kit See Rx Instructions .Route Qty: 1 0RF Rx Instructions: As directed gabapentin 100 mg capsule 100 mg PO TID Qty: 270 0RF lisinopril 5 mg tablet 5 mg PO DAILY Qty: 90 2RF omeprazole 20 mg capsule,delayed release(DR/EC) 20 mg PO BID Qty: 60 3RF lubiprostone [Amitiza] 8 mcg capsule 8 mcg PO BID Qty: 60 3RF metoclopramide HCl 10 mg tablet 10 mg PO TID PRN (Reason: for nausea/vomiting) Qty: 90 3RF atorvastatin 40 mg tablet 40 mg PO BEDTIME 90 Days Qty: 90 1RF tramadol 50 mg tablet See Rx Instructions .ROUTE .COMPLEX PRN (Reason: pain) 25 Days Qty: 100 1RF Rx Instructions: Take 1 to 2 tablets orlly twice a day as needed for pain PRN; lorazepam 0.5 mg tablet 0.5 mg PO TID PRN (Reason: Anxiety) 30 Days Qty: 90 0RF citalopram 10 mg tablet 1 tab PO DAILY 0RF furosemide 20 mg tablet 60 mg PO BID 0RF pramipexole 1 mg tablet 1 mg PO TID 0RF dulaglutide 1.5 mg/0.5 mL pen injector 1.5 mg subcut QWEEK 0RF budesonide-formoterol [Symbicort] 160-4.5 mcg/actuation HFA aerosol inhaler 2 puff inhalation BID 0RF insulin regular hum U-500 conc 500 unit/mL (3 mL) insulin pen See Rx Instructions subcut TIDWMEAL 0RF Rx Instructions: Per Sliding Scale. ondansetron 4 mg tablet,disintegrating 4 mg PO Q6-8H PRN (Reason: nausea and vomiting) 10 Days Qty: 40 0RF spironolactone 100 mg tablet 100 mg PO BID 0RF meloxicam 15 mg tablet 15 mg PO DAILY 0RF oxycodone 5 mg tablet 5 mg PO Q6-8H PRN (Reason: severe pain) 7 Days Qty: 28 0RF fluticasone propionate 50 mcg/actuation spray,suspension 1 spray intranasal DAILY 0RF (DME) abdominal binder Kit See Rx Instructions .Route Qty: 1 0RF Rx Instructions: As directed primidone 50 mg tablet 50 mg PO BEDTIME 0RF mirtazapine 7.5 mg tablet 7.5 mg PO BEDTIME 30 Days Qty: 30 1RF Interventions: ED Discharge Assessment Last Done: 10/06/21 18:46 Discharge Date/Time: 10/06/21 18:48
[2021-10-06 15:33] LABS: COVID-19 Test Negative (Negative); IDNOW Serial# 55D5AD1C; Influenza A Negative (Negative); Influenza B2 Negative (Negative)
[2021-10-06 15:34] LABS: B Type Natriuretic Peptide < 10 pg/mL (<100); Troponin-I High Sensitivity < 3.5 ng/L (<3.5-17.0)
[2021-10-06 15:56] LABS: Glucose, Whole Blood 579 mg/dL (60-115)
[2021-10-06] MEDS: Insulin Regular, Human 100 UNIT/ML 3 ML VIAL 14 UNIT IVPUSH (16:07)
[2021-10-06 16:08] LABS: Venous Blood Gas Refer to POC result
[2021-10-06] MEDS: 0.9 % Sodium Chloride 1,000 ML 999 ML IV (16:08)
[2021-10-06 16:10] LABS: VBG Base Excess -2.1 mmol/L; VBG HCO3 22 mmol/L (22-26); VBG pCO2 38 mmHg; VBG pH 7.37 (7.32-7.43); VBG pO2 51 mmHg
[2021-10-06 16:18] LABS: Acetone, serum QL Negative (Negative)
[2021-10-06 16:55] VITALS: BP 130/78; PULSE 102; RESP 18; TEMP 37; O2SAT 98
[2021-10-06] MEDS: Ketorolac Tromethamine 30 MG/ML VIAL IVPUSH (17:13)
[2021-10-06] MEDS: Insulin Lispro 100 UNIT/ML 3 ML VIAL 20 UNIT SUBCUT (17:19)
[2021-10-06 17:35] LABS: Glucose, Whole Blood 492 mg/dL (60-115)
[2021-10-06 18:29] LABS: Glucose, Whole Blood 464 mg/dL (60-115)
[2021-10-06 18:37] VITALS: BP 110/76; PULSE 85; RESP 16; TEMP 37.1; O2SAT 96
== END 2021-10-06 18:48 | disposition home or self-care (01) ==
PROVIDERS: Emergency Provider Internal Medicine; PCP Internal Medicine
DX: R07.89 Other chest pain (principal); E11.65 Type 2 diabetes mellitus with hyperglycemia; F17.210 Nicotine dependence, cigarettes, uncomplicated; Z79.4 Long term (current) use of insulin; Z79.899 Other long term (current) drug therapy; Z71.6 Tobacco abuse counseling; Z20.822 Contact with and (suspected) exposure to COVID-19
CPT/HCPCS: 36415; 71045; 80048; 82009; 82803; 82947; 83880; 84484; 85025; 87502; 87635; 93005; 96361; 96374; 96375; 99283; 99284; J1885

== ENCOUNTER 2021-11-09 10:53 | Outpatient (REF) | payer OTHER, SELFPAY ==
--- NOTE | ~2021-11-09 | XR_ITS ---
EXAMINATION: XR CHEST CLINICAL INFORMATION: Unspecified asthma with acute exacerbation COMPARISON: None TECHNIQUE: 2 views of the chest were obtained. FINDINGS: No significant abnormality is noted involving the heart, lungs, mediastinum, bony thorax or soft tissues. XR/XR chest 2V IMPRESSION: Unremarkable chest examination.
== END 2021-11-09 10:54 | disposition home or self-care (01) ==
LOC: HO.XRAY 10:53
PROVIDERS: PCP Internal Medicine; Visit Provider Internal Medicine
DX: J45.901 Unspecified asthma with (acute) exacerbation (principal)
CPT/HCPCS: 71046; 99212

== ENCOUNTER 2021-11-28 01:13 | Emergency (ER) | payer OTHER, SELFPAY ==
[2021-11-28 01:17] VITALS: BP 162/80; PULSE 107; O2SAT 96
[2021-11-28 01:20] VITALS: BP 138/84; PULSE 86; RESP 20; TEMP 36.8; O2SAT 96; BMI 50.5
--- NOTE | 2021-11-28 01:31 | ED.BACK ---
HPI - Back Pain/Injury General Chief Complaint: Back Pain/Injury Stated Complaint: LOW BACK PAIN,NO INJURY PER EMS Time Seen by Provider: 11/28/21 01:24 History of Present Illness HPI Narrative: Patient is a 51-year-old female with a history of diabetes. Presents today with having back pain is over the lower back similar to previous bouts. There is no bowel urinary incontinence. There is no focal weakness. There is no radiation of the pain. Patient had similar pains in the past. Denies any trauma today. Related Data Home Medications Medication Instructions Recorded Confirmed budesonide-formoterol HFA 160 2 puff inhalation BID 03/04/20 09/19/21 mcg-4.5 mcg/actuation aerosol inhaler (Symbicort) dulaglutide 1.5 mg/0.5 mL 1.5 mg subcut QWEEK 03/04/20 09/19/21 subcutaneous pen injector insulin regular hum U-500 conc See Rx Instructions subcut TIDWMEAL 03/04/20 09/19/21 pramipexole 1 mg tablet 1 mg PO TID 03/04/20 09/19/21 fluticasone propionate 50 1 spray intranasal DAILY 07/06/20 09/19/21 mcg/actuation nasal spray,suspension citalopram 10 mg tablet 1 tab PO DAILY 07/12/20 09/19/21 furosemide 20 mg tablet 60 mg PO BID 10/06/20 09/19/21 primidone 50 mg tablet 50 mg PO BEDTIME 02/21/21 09/19/21 meloxicam 15 mg tablet 15 mg PO DAILY 09/19/21 09/19/21 spironolactone 100 mg tablet 100 mg PO BID 09/19/21 09/19/21 Previous Rx's Medication Instructions Recorded ondansetron 4 mg disintegrating 4 mg PO Q6-8H PRN nausea and 08/27/20 tablet vomiting 10 days #40 tabs abdominal binder #1 ea 01/19/21 abdominal binder (BraceAbility #1 ea 01/19/21 abdominal binder) gabapentin 100 mg capsule 100 mg PO TID #270 caps 02/20/21 mirtazapine 7.5 mg tablet 7.5 mg PO BEDTIME 30 days #30 tabs 02/21/21 lisinopril 5 mg tablet 5 mg PO DAILY #90 tabs 03/14/21 Amitiza 8 mcg capsule 8 mcg PO BID #60 caps 07/27/21 (lubiprostone) omeprazole 20 mg capsule,delayed 20 mg PO BID #60 caps 07/27/21 release atorvastatin 40 mg tablet 40 mg PO BEDTIME 90 days #90 tabs 08/26/21 metoclopramide HCl 10 mg tablet 10 mg PO TID PRN for 08/26/21 nausea/vomiting #90 tabs oxycodone 5 mg tablet 5 mg PO Q6-8H PRN severe pain 7 09/19/21 days #28 tabs albuterol sulfate 90 mcg/actuation 2 puff inhalation Q4-6H PRN 11/09/21 aerosol inhaler (ProAir HFA) shortness of breath or wheezing 30 days #8.5 grams azithromycin 250 mg tablet See Rx Instructions PO .COMPLEX #6 11/09/21 tabs budesonide-formoterol HFA 160 2 puff inhalation BID ASTHMA 30 11/09/21 mcg-4.5 mcg/actuation aerosol days #10.2 grams inhaler (Symbicort) prednisone 10 mg tablet 10 mg PO BID ASTHMA EXCERABATION 7 11/09/21 days #14 tabs lorazepam 0.5 mg tablet 0.5 mg PO TID PRN Anxiety 30 days 11/14/21 #90 tabs tramadol 50 mg tablet See Rx Instructions .Route 11/15/21 .COMPLEX PRN pain 25 days #100 tabs Allergies Allergy/AdvReac Type Severity Reaction Status Date / Time adhesive tape Allergy Intermediate Rash Verified 11/28/21 01:26 empagliflozin Allergy Intermediate Rash Verified 11/28/21 01:26 [From JARDIANCE] sitagliptin [From JANUVIA] AdvReac Severe Rash,nausea, Verified 11/28/21 01:26 hypoglycemia metformin [METFORMIN] AdvReac Intermediate Rash, GI Verified 11/28/21 01:26 upset Review of Systems Review of Systems: Positive back pain. No bowel urinary incontinence. No focal weakness. Yes all other systems are reviewed and are negative PMFSH Past Medical History Attestation statement: The following information was validated with the patient. Medical History Abdominal pain Anxiety Asthma Atypical chest pain Benign essential hypertension Blood dyscrasia Body mass index [BMI] 50.0-59.9, adult Chronic constipation Cirrhosis of liver without ascites Depression Diabetes mellitus Diastolic dysfunction Dyslipidemia Dyspnea on effort Fatigue Fatty pancreas Gastroparesis GERD (gastroesophageal reflux disease) HTN (hypertension) Insomnia Liver cirrhosis Lumbar degenerative disc disease Morbid (severe) obesity due to excess calories Morbid obesity with BMI of 50.0-59.9, adult Nausea and vomiting Neuropathic pain of both feet Obstructive sleep apnea On beta kelsey at home Pain and swelling of right lower extremity Pars defect of lumbar spine Pedal edema Periodic limb movement disorder Postlaminectomy syndrome, lumbar Pure hypercholesterolemia Rectal bleeding Sleep apnea with use of continuous positive airway pressure (CPAP) Spondylolisthesis, lumbar region Spondylosis of lumbar spine Superficial bruising of lower leg Type 2 diabetes mellitus with diabetic autonomic (poly)neuropathy Surgical History H/O cardiac catheterization (~12/14/17) H/O section H/O colonoscopy History of appendectomy History of esophagogastroduodenoscopy (EGD) History of laryngoscopy (~02/10/19) History of lumbar discectomy History of surgery History of ventral hernia repair (~2008) Family History Family History Father Diabetes mellitus Hypertension Mother Diabetes mellitus Hypertension Uterine cancer History of heart attack Social History Social History Housing: Apartment Are you a primary career technical education teacher to a significant other at home: No Do you presently have visiting nurse or other home services: Yes (Home Health Aide, VNA) Alcohol intake: never Patient Tobacco Use Status: Former Tobacco user Quit Date: 2005 Tobacco use type: Cigarette Years Smoked: 10 e-Cigarette/Vaping Use: Never Used Second Hand Smoke Exposure: No service: No Current occupational status: disabled Cognitive needs: No Hearing needs: No Vision needs: No Physical Exam Vital Signs: Vital Signs: Last Vital Signs Temp 98.3 F 11/28/21 01:20 Pulse 86 11/28/21 01:20 Resp 20 11/28/21 01:20 BP 138/84 11/28/21 01:20 Pulse Ox 96 11/28/21 01:20 O2 Del Method 11/28/21 01:20 BMI result Body Mass Index 50.5 Appearance: Alert. Oriented X3. No acute distress. Eyes: Pupils equal, round and reactive to light. ENT: Pharynx normal. Neck: Normal inspection. Neck supple. No lymph nodes noted. No crepitus CVS: Normal heart rate and rhythm. Pulses normal. Normal S1 and S2 Respiratory: No respiratory distress. Breath sounds normal. No Wheezing. No rales Abdomen: Soft and nontender. No rigidity. No distention. good BS x4 Back exam: Positive paraspinal muscle tenderness lower back. There is no point tenderness on palpation. Distal sensation intact. Reflex 2+ at patella. Skin: Skin warm and dry. Normal skin color. Normal skin turgor. Extremities: No lower extremity edema. Neurovascular intact to all extremities. No Lacerations. No Rash Neuro: Oriented X 3. No motor deficit. No sensory deficit. Moving all extermities. No slurred speech MDM - Back Pain/Injury MDM Narrative Medical decision making narrative: Lower back pain similar to previous bouts. Will give 1 dose of narcotic orally. Will have patient follow-up on an outpatient basis. He has pain management for follow-up. She is in stable condition. There was no bowel urinary incontinence. There is no focal weakness. No evidence for cauda equinus syndrome. Medical Records Attestation: I reviewed the patient's medical records. Lab Data Attestation: I reviewed the patient's lab results. Discharge Plan Discharge Clinical Impression: Strain of lumbar region Patient Disposition: Home, Self-Care Instructions: Back Pain (ED) Prescriptions: No Action (DME) BraceAbility abdominal binder Kit See Rx Instructions .Route Qty: 1 0RF Rx Instructions: As directed gabapentin 100 mg capsule 100 mg PO TID Qty: 270 0RF lisinopril 5 mg tablet 5 mg PO DAILY Qty: 90 2RF omeprazole 20 mg capsule,delayed release(DR/EC) 20 mg PO BID Qty: 60 3RF lubiprostone [Amitiza] 8 mcg capsule 8 mcg PO BID Qty: 60 3RF metoclopramide HCl 10 mg tablet 10 mg PO TID PRN (Reason: for nausea/vomiting) Qty: 90 3RF atorvastatin 40 mg tablet 40 mg PO BEDTIME 90 Days Qty: 90 1RF lorazepam 0.5 mg tablet 0.5 mg PO TID PRN (Reason: Anxiety) 30 Days Qty: 90 0RF tramadol 50 mg tablet See Rx Instructions .ROUTE .COMPLEX PRN (Reason: pain) 25 Days Qty: 100 1RF Rx Instructions: Take 1 to 2 tablets orlly twice a day as needed for pain PRN; citalopram 10 mg tablet 1 tab PO DAILY furosemide 20 mg tablet 60 mg PO BID pramipexole 1 mg tablet 1 mg PO TID dulaglutide 1.5 mg/0.5 mL pen injector 1.5 mg subcut QWEEK budesonide-formoterol [Symbicort] 160-4.5 mcg/actuation HFA aerosol inhaler 2 puff inhalation BID insulin regular hum U-500 conc 500 unit/mL (3 mL) insulin pen See Rx Instructions subcut TIDWMEAL Rx Instructions: Per Sliding Scale. ondansetron 4 mg tablet,disintegrating 4 mg PO Q6-8H PRN (Reason: nausea and vomiting) 10 Days Qty: 40 0RF spironolactone 100 mg tablet 100 mg PO BID meloxicam 15 mg tablet 15 mg PO DAILY oxycodone 5 mg tablet 5 mg PO Q6-8H PRN (Reason: severe pain) 7 Days Qty: 28 0RF fluticasone propionate 50 mcg/actuation spray,suspension 1 spray intranasal DAILY (DME) abdominal binder Kit See Rx Instructions .Route Qty: 1 0RF Rx Instructions: As directed primidone 50 mg tablet 50 mg PO BEDTIME mirtazapine 7.5 mg tablet 7.5 mg PO BEDTIME 30 Days Qty: 30 1RF azithromycin 250 mg tablet See Rx Instructions PO .COMPLEX Qty: 6 0RF Rx Instructions: For 250 mg dose pack: take 500 mg today (day 1), then 250 mg for 4 days (days 2-5) PO prednisone 10 mg tablet 10 mg PO BID 7 Days Qty: 14 0RF budesonide-formoterol [Symbicort] 160-4.5 mcg/actuation HFA aerosol inhaler 2 puff inhalation BID 30 Days Qty: 10.2 3RF albuterol sulfate [ProAir HFA] 90 mcg/actuation HFA aerosol inhaler 2 puff inhalation Q4-6H PRN (Reason: shortness of breath or wheezing) 30 Days Qty: 8.5 2RF Referrals: [facility] [Provider Group]
[2021-11-28] MEDS: HYDROmorphone HCl 1 MG/ML SYRINGE IM (02:21)
[2021-11-28] MEDS: oxyCODONE HCl Immed Release 5 MG TABLET PO (02:21)
== END 2021-11-28 02:33 | disposition home or self-care (01) ==
PROVIDERS: Emergency Provider Emergency Medicine Emergency Medical Services
DX: S39.012A Strain of muscle, fascia and tendon of lower back, initial encounter (principal); X58.XXXA Exposure to other specified factors, initial encounter; Y93.9 Activity, unspecified; Y92.9 Unspecified place or not applicable; Y99.9 Unspecified external cause status; Z87.891 Personal history of nicotine dependence; Z79.899 Other long term (current) drug therapy
CPT/HCPCS: 96372; 99283; 99284; J1170

== ENCOUNTER → 2022-02-02 10:52 | Outpatient (BNVA) | payer OTHER, SELFPAY | PROVIDERS: PCP Internal Medicine; Visit Provider Internal Medicine | DX: G47.33 Obstructive sleep apnea (adult) (pediatric) (principal); J44.9 Chronic obstructive pulmonary disease, unspecified; J45.20 Mild intermittent asthma, uncomplicated; E66.01 Morbid (severe) obesity due to excess calories; J45.909 Unspecified asthma, uncomplicated; Z68.43 Body mass index [BMI] 50.0-59.9, adult | CPT/HCPCS: 99212 ==

== ENCOUNTER 2022-02-03 | Outpatient (REF) | payer OTHER, SELFPAY ==
--- NOTE | 2021-12-21 08:49 | P.CONAN_ITS ---
HPI - Anesthesia Eval Consult details Narrative: 51yo F for Lumbar Spinal Cord Stimulation Implant Same procedure was aborted 01/2021 d/t extensive bleeding at incision. Pt was seen by Heme but no hematologic etiology for bleeding. T/C with Dr Jones 12/21/2021. Last avail glucose levels from September >500. Pt to com e 12/21 to have updated labs including A1C to guide plan of care. Pt agreeable. Per Dr Jones, pt is not candidate d/t elevated A1C. Referred to endocrine by office. [facility] Active Problems Active Problems: All Active Problems (Updated 12/20/21 @ 08:46 by Ellie Posadas, JESSICA) Preprocedural examination (Acute) Asthma exacerbation (Acute) Bronchitis (Acute) Nausea & vomiting (Acute) Epigastric pain (Acute) RUQ abdominal pain (Acute) PAD (peripheral artery disease) (Acute) Gastroparesis (Acute) Blood dyscrasia (Acute) Post laminectomy syndrome (Acute) Superficial bruising of lower leg (Acute) Pain and swelling of right lower extremity (Acute) Foamy urine (Acute) Colon cancer screening (Acute) Morbid obesity with BMI of 50.0-59.9, adult (Acute) Pure hypercholesterolemia (Acute) Fatigue (Acute) Diabetes mellitus (Acute) Pedal edema (Acute) Nausea and vomiting (Acute) Abdominal pain (Acute) Dyspnea on effort (Acute) Asthma (Acute) Morbid obesity with BMI of 50.0-59.9, adult (Acute) Liver cirrhosis (Acute) Pars defect of lumbar spine (Acute) Spondylolisthesis, lumbar region (Acute) Postlaminectomy syndrome, lumbar (Acute) Spondylosis of lumbar spine (Acute) Rectal bleeding (Acute) Fatty pancreas (Acute) Chronic constipation (Acute) Cirrhosis of liver without ascites (Acute) Body mass index [BMI] 50.0-59.9, adult (Acute) Morbid (severe) obesity due to excess calories (Acute) Depression (Acute) Anxiety (Acute) Insomnia (Acute) Obstructive sleep apnea (Acute) Periodic limb movement disorder (Acute) Neuropathic pain of both feet (Acute) GERD (gastroesophageal reflux disease) (Acute) Gastroparesis (Acute) Lumbar degenerative disc disease (Acute) Benign essential hypertension (Acute) Dyslipidemia (Acute) Diastolic dysfunction (Acute) Type 2 diabetes mellitus with diabetic autonomic (poly)neuropathy (Acute) Past Medical History Medical History Abdominal pain Anxiety Asthma Atypical chest pain Benign essential hypertension Blood dyscrasia Body mass index [BMI] 50.0-59.9, adult Chronic constipation Cirrhosis of liver without ascites Depression Diabetes mellitus Diastolic dysfunction Dyslipidemia Dyspnea on effort Fatigue Fatty pancreas Gastroparesis GERD (gastroesophageal reflux disease) HTN (hypertension) Insomnia Liver cirrhosis Lumbar degenerative disc disease Morbid (severe) obesity due to excess calories Morbid obesity with BMI of 50.0-59.9, adult Nausea and vomiting Neuropathic pain of both feet Obstructive sleep apnea On beta kelsey at home Pain and swelling of right lower extremity Pars defect of lumbar spine Pedal edema Periodic limb movement disorder Postlaminectomy syndrome, lumbar Pure hypercholesterolemia Rectal bleeding Sleep apnea with use of continuous positive airway pressure (CPAP) Spondylolisthesis, lumbar region Spondylosis of lumbar spine Superficial bruising of lower leg Type 2 diabetes mellitus with diabetic autonomic (poly)neuropathy Family History Family History Father Diabetes mellitus Hypertension Mother Diabetes mellitus Hypertension Uterine cancer History of heart attack Family history of problems with anesthesia: No Surgical History Surgical History H/O cardiac catheterization (~12/14/17) H/O section H/O colonoscopy History of appendectomy History of esophagogastroduodenoscopy (EGD) History of laryngoscopy (~02/10/19) History of lumbar discectomy History of surgery History of ventral hernia repair (~2008) History of Problems with Anesthesia: No Social History Social History Housing: Apartment Are you a primary animal caretaker to a significant other at home: No Do you presently have visiting nurse or other home services: Yes (Home Health Aide, VNA) Alcohol intake: never Patient Tobacco Use Status: Former Tobacco user Quit Date: 2005 Tobacco use type: Cigarette Years Smoked: 10 e-Cigarette/Vaping Use: Never Used Second Hand Smoke Exposure: No service: No Current occupational status: disabled Cognitive needs: No Hearing needs: No Vision needs: No Meds Allergies Allergy/AdvReac Type Severity Reaction Status Date / Time adhesive tape Allergy Intermediate Rash Verified 11/28/21 01:26 empagliflozin Allergy Intermediate Rash Verified 11/28/21 01:26 [From LISA] sitagliptin [From JANUVIA] AdvReac Severe Rash,nausea, Verified 11/28/21 01:26 hypoglycemia metformin [METFORMIN] AdvReac Intermediate Rash, GI Verified 11/28/21 01:26 upset Home Medications Medication Instructions Recorded Confirmed Last Taken Type budesonide-formoterol HFA 160 2 puff inhalation BID 03/04/20 09/19/21 Unknown History mcg-4.5 mcg/actuation aerosol inhaler (Symbicort) dulaglutide 1.5 mg/0.5 mL 1.5 mg subcut QWEEK 03/04/20 09/19/21 01/14/21 History subcutaneous pen injector insulin regular hum U-500 conc 500 See Rx Instructions subcut TIDWMEAL 03/04/20 09/19/21 01/20/21 History unit/mL(3 mL) subcut pen 140 units at bedtime pramipexole 1 mg tablet 1 mg PO TID 03/04/20 09/19/21 07/16/20 History fluticasone propionate 50 1 spray intranasal DAILY 07/06/20 09/19/21 Unknown History mcg/actuation nasal spray,suspension citalopram 10 mg tablet 1 tab PO DAILY 07/12/20 09/19/21 Unknown History furosemide 20 mg tablet 60 mg PO BID 10/06/20 09/19/21 Unknown History primidone 50 mg tablet 50 mg PO BEDTIME 02/21/21 09/19/21 Unknown History meloxicam 15 mg tablet 15 mg PO DAILY 09/19/21 09/19/21 Unknown History spironolactone 100 mg tablet 100 mg PO BID 09/19/21 09/19/21 Unknown History Exam Exam Date and Time: December 21, 2021 0849 Pertinent Lab Results Pertinent Lab Results: Laboratory Tests 12/16/21 15:28 Blood Type O Positive Antibody Screen NEGATIVE Lab Results 12/16/21 12/21/21 12/21/21 Range/Units 15:28 12:13 12:13 WBC 11.7 H (4.8-10.8) X10*3/uL RBC 5.16 (4.20-5.50) X10*6/uL Hgb 14.6 (12.0-16.0) g/dl Hct 44.9 (37.0-47.0) % MCV 87.0 (80.0-98.0) fL MCH 28.3 (27.0-33.0) pg MCHC 32.5 (31.0-35.0) g/dl RDW 13.1 (11.0-16.0) % Plt Count 329 (160-400) X10*3/uL MPV 11.1 (9.4-12.3) fL Absolute Nucleated RBC 0.000 (0.0-0.012) X10*3/uL Nucleated RBC % (auto) 0.0 (0.0-0.2) /100WBC PT 12.8 (10.0-13.1) SEC INR 1.1 (0.9-1.1) APTT 32.2 (26.0-36.4) SEC Sodium (135-145) mmol/L Potassium (3.3-5.1) mmol/L Chloride (96-108) mmol/L Carbon Dioxide (22-29) mmol/L Anion Gap (12-20) BUN (9-16) mg/dL Creatinine (0.5-1.4) mg/dL Estim Creat Clear Calc Estimated GFR Random Glucose (60-115) mg/dL Estimat Average Glucose mg/dL Hemoglobin A1c % % Calcium (8.4-10.2) mg/dL Blood Type O Positive Antibody Screen NEGATIVE 12/21/21 12/21/21 Range/Units 12:13 12:13 WBC (4.8-10.8) X10*3/uL RBC (4.20-5.50) X10*6/uL Hgb (12.0-16.0) g/dl Hct (37.0-47.0) % MCV (80.0-98.0) fL MCH (27.0-33.0) pg MCHC (31.0-35.0) g/dl RDW (11.0-16.0) % Plt Count (160-400) X10*3/uL MPV (9.4-12.3) fL Absolute Nucleated RBC (0.0-0.012) X10*3/uL Nucleated RBC % (auto) (0.0-0.2) /100WBC PT (10.0-13.1) SEC INR (0.9-1.1) APTT (26.0-36.4) SEC Sodium 136 (135-145) mmol/L Potassium 4.7 (3.3-5.1) mmol/L Chloride 101 (96-108) mmol/L Carbon Dioxide 26 (22-29) mmol/L Anion Gap 14 (12-20) BUN 12 (9-16) mg/dL Creatinine 1.00 (0.5-1.4) mg/dL Estim Creat Clear Calc TNP Estimated GFR 58 Random Glucose 241 H D (60-115) mg/dL Estimat Average Glucose 255 mg/dL Hemoglobin A1c % 10.5 % Calcium 9.7 (8.4-10.2) mg/dL Blood Type Antibody Screen Narrative Narrative: EKG 09/2021 Vent. Rate : 121 BPM ? ? Atrial Rate : 121 BPM ?? P-R Int : 168 ms? QRS Dur : 080 ms ? ? QT Int : 302 ms ? ? ? P-R-T Axes : 037 011 051 degrees ?? QTc Int : 428 ms ? Sinus tachycardia with occasional Premature ventricular complexes Otherwise normal ECG When compared with ECG of 09-SEP-2020 02:26, Premature ventricular complexes are now Present T wave amplitude has increased in Anterior leads Assessment and Plan Assessment Anesthesia Assessment: Chart Reviewed Final Anesthetic Review Family History of Problems with Anesthesia: No History of Problems with Anesthesia: No
[2021-12-21 12:41] LABS: Hematocrit 44.9 % (37.0-47.0); Hemoglobin 14.6 g/dl (12.0-16.0); Mean Corpuscular HGB Conc 32.5 g/dl (31.0-35.0); Mean Corpuscular Hemoglobin 28.3 pg (27.0-33.0); Mean Platelet Volume 11.1 fL (9.4-12.3); Platelet Count 329 X10*3/uL (160-400); Red Blood Count 5.16 X10*6/uL (4.20-5.50); Red Cell Distribution Width 13.1 % (11.0-16.0); White Blood Count 11.7 X10*3/uL (4.8-10.8)
[2021-12-21 12:45] LABS: INTERNATIONAL NORM RATIO 1.1 (0.9-1.1); Prothrombin Time 12.8 SEC (10.0-13.1)
[2021-12-21 12:47] LABS: Partial Thromboplastin Time 32.2 SEC (26.0-36.4)
[2021-12-21 13:55] LABS: Anion Gap 14 (12-20); Blood Urea Nitrogen 12 mg/dL (9-16); Calcium 9.7 mg/dL (8.4-10.2); Carbon Dioxide 26 mmol/L (22-29); Chloride 101 mmol/L (96-108); Estimated Glomerular Filt Rate 58; Glucose Random 241 mg/dL (60-115); Potassium 4.7 mmol/L (3.3-5.1); Sodium 136 mmol/L (135-145)
[2021-12-21 14:09] LABS: Estimated Average Glucose 255 mg/dL; Hemoglobin A1c % 10.5 %
== END 2022-02-03 00:01 | disposition home or self-care (01) ==
LOC: HO.PAT
PROVIDERS: Nurse Practitioner; PCP Internal Medicine; Visit Provider Anesthesiology
DX: Z01.818 Encounter for other preprocedural examination (principal); M96.1 Postlaminectomy syndrome, not elsewhere classified; D75.9 Disease of blood and blood-forming organs, unspecified
CPT/HCPCS: 36415; 80048; 83036; 85027; 85610; 85730; 86850; 86900; 86901

== ENCOUNTER 2022-03-14 09:01 | Outpatient (REF) | payer OTHER, SELFPAY ==
--- NOTE | 2022-03-14 10:04 | PFT_ITS ---
Forced vital capacity 92%, FEV1 91%. FEV1/FVC ratio is 79. GDH17-71 78% and MVV 83%. Post bronchodilator therapy, there is slight improvement in QMA92-04 by 27%. Total lung capacity 94%. Residual volume 90%. Diffusion capacity 103% CONCLUSION: Normal pulmonary function test except for possible mild obstructive airway disorder of the small airways, which responds to bronchodilator therapy. This finding may be consistent with a very mild degree of bronchial asthma. Clinical correlation is recommended. MD WANDA Jackson/PAM / [phone]
== END 2022-03-14 09:02 | disposition home or self-care (01) ==
LOC: HO.RESP 09:01
PROVIDERS: PCP Internal Medicine; Visit Provider Internal Medicine
DX: E66.01 Morbid (severe) obesity due to excess calories (principal); G47.33 Obstructive sleep apnea (adult) (pediatric); J44.9 Chronic obstructive pulmonary disease, unspecified; Z68.43 Body mass index [BMI] 50.0-59.9, adult
CPT/HCPCS: 94060; 94727; 94729

== ENCOUNTER → 2022-04-05 10:47 | Outpatient (REF) | payer OTHER, SELFPAY | LOC: HO.SL 10:47 | PROVIDERS: Visit Provider Internal Medicine | DX: G47.33 Obstructive sleep apnea (adult) (pediatric) (principal); J98.4 Other disorders of lung; J45.909 Unspecified asthma, uncomplicated | CPT/HCPCS: 95806; 99212 ==

== ENCOUNTER 2022-06-22 07:56 | Outpatient (REF) | payer OTHER, SELFPAY ==
[2022-06-22 08:11] LABS: MANUAL DIFF FLAG NO
[2022-06-22 08:32] LABS: Basophils Absolute Auto 0.1 X10*3/uL (0.0-0.2); Basophils Percent Auto 0.8 % (0-2); Eosinophils Absolute Auto 0.5 X10*3/uL (0.0-0.4); Eosinophils Percent Auto 5.1 % (0-4); Estimated Average Glucose 272 mg/dL; Hematocrit 41.5 % (37.0-47.0); Hemoglobin 13.4 g/dl (12.0-16.0); Hemoglobin A1c % 11.1 %; Imm Gran Abs Auto 0.05 X10*3/uL (0.00-0.03); Imm Gran Pct Auto 0.5 % (0.0-0.4); Lymphocytes Absolute Auto 3.3 X10*3/uL (1.2-4.9); Lymphocytes Percent Auto 31.7 % (20-40); Mean Corpuscular HGB Conc 32.3 g/dl (31.0-35.0); Mean Corpuscular Hemoglobin 27.9 pg (27.0-33.0); Mean Corpuscular Volume 86.3 fL (80.0-98.0); Monocytes Absolute Auto 0.7 X10*3/uL (0.1-1.2); Neutrophils Absolute Auto 5.8 x10*3/uL (2.0-8.3); Neutrophils Percent Auto 54.9 % (45-73); Platelet Count 258 X10*3/uL (160-400); Red Blood Count 4.81 X10*6/uL (4.20-5.50); Red Cell Distribution Width 13.2 % (11.0-16.0); White Blood Count 10.5 X10*3/uL (4.8-10.8)
[2022-06-22 09:01] LABS: Alanine Aminotransferase 23 U/L (0-31); Albumin Level 3.8 g/dL (3.5-5.0); Alkaline Phosphatase 97 U/L (39-117); Anion Gap 10 (12-20); Aspartate Amino Transferase 15 U/L (5-31); Bilirubin Total 0.7 mg/dL (0.0-1.0); Blood Urea Nitrogen 17 mg/dL (9-16); Calcium 9.3 mg/dL (8.4-10.2); Carbon Dioxide 24 mmol/L (22-29); Chloride 105 mmol/L (96-108); Cholesterol 98 mg/dL; Estimated Glomerular Filt Rate > 60; Glucose Fasting 204 mg/dL (60-99); HDL Cholesterol 31 mg/dL; LDL Cholesterol Calculated 53 mg/dl; Potassium 4.3 mmol/L (3.3-5.1); Sodium 135 mmol/L (135-145); Triglycerides 74 mg/dL
[2022-06-22 09:19] LABS: TSH reflex Free T4 3.94 uIU/mL (0.32-4.0); Vitamin D 25-OH Total 21.9 ng/mL (>30)
[2022-06-22 09:27] LABS: Appearance Urine Clear; Color Urine Yellow; Glucose Urine UA 100 mg/dL (Negative); Leukocyte Esterase Urine Trace (Negative); Nitrite Urine Negative (Negative); PH 5.5 (5.0-9.0); Specific Gravity - Urine 1.025 (1.005-1.025); UMIC TRIGGER UACC YES; Urine Blood Negative (Negative); Urine Ketones Negative (Negative); Urine Protein Trace mg/dL (Neg-Trace)
[2022-06-22 09:31] LABS: Bacteria Urine 2+ (None Seen); Hyaline Casts Urine 0-2 /LPF (0-2); UACC Culture Trigger YES
[2022-06-22 09:52] LABS: Creatinine Urine 178.87 mg/dL; Microalbum/Creatinine Ratio Ur 16.7 ug/mg cr
== END 2022-06-22 07:57 | disposition home or self-care (01) ==
LOC: HO.LAB 07:56
PROVIDERS: PCP Internal Medicine; Visit Provider Internal Medicine
DX: E11.9 Type 2 diabetes mellitus without complications (principal); E78.00 Pure hypercholesterolemia, unspecified; E55.9 Vitamin D deficiency, unspecified; I10 Essential (primary) hypertension
CPT/HCPCS: 36415; 80053; 80061; 81001; 82043; 82306; 83036; 84443; 85025; 87086

== ENCOUNTER → 2022-06-28 10:16 | Outpatient (BNVA) | payer OTHER, SELFPAY | PROVIDERS: PCP Internal Medicine; Visit Provider Internal Medicine | DX: G47.33 Obstructive sleep apnea (adult) (pediatric) (principal); J98.4 Other disorders of lung; J45.909 Unspecified asthma, uncomplicated; E66.01 Morbid (severe) obesity due to excess calories; Z68.42 Body mass index [BMI] 45.0-49.9, adult | CPT/HCPCS: 99212 ==

== ENCOUNTER → 2022-08-04 08:21 | Outpatient (BNVA) | payer OTHER, SELFPAY | PROVIDERS: PCP Internal Medicine; Visit Provider Internal Medicine Gastroenterology | DX: K31.84 Gastroparesis (principal); K74.60 Unspecified cirrhosis of liver; K59.09 Other constipation; K21.9 Gastro-esophageal reflux disease without esophagitis; R11.2 Nausea with vomiting, unspecified; R10.13 Epigastric pain; R10.11 Right upper quadrant pain | CPT/HCPCS: 99212 ==

== ENCOUNTER 2022-08-23 10:24 | Outpatient (REF) | payer OTHER, SELFPAY ==
--- NOTE | ~2022-08-23 | US_ITS ---
EXAMINATION: US ABDOMEN COMPLETE CLINICAL INFORMATION: Right upper quadrant pain. COMPARISON: Ultrasound abdomen complete 07/20/2021. CTA abdomen and pelvis 05/05/2021. Limited abdominal ultrasound 11/27/2020. TECHNIQUE: Real-time imaging of the abdominal viscera. FINDINGS: PANCREAS: Normal. ABDOMINAL AORTA: The proximal, mid, and distal segments are normal in caliber. INFERIOR VENA CAVA: Visualized portions are normal. LIVER: The liver is normal in size, with a longitudinal span of 16.0 cm. The liver contour is normal. There is diffuse increased liver parenchymal echogenicity, with pericholecystic sparing. No focal hepatic lesion. There is no intrahepatic biliary duct dilatation seen. GALLBLADDER: The gallbladder is physiologically distended without evidence of stones, sludge, wall thickening or pericholecystic fluid. 2 nonmobile 6 mm polyps are noted, mildly increased from a prior maximal diameter of 4 mm. COMMON BILE DUCT: Normal in caliber measuring 0.3 cm in diameter. RIGHT KIDNEY: Normal. No hydronephrosis. No renal calculi or focal parenchymal lesions. The kidney measures 10.7 cm in maximum dimension. LEFT KIDNEY: Normal. No hydronephrosis. No renal calculi or focal parenchymal lesions. The kidney measures 11.2 cm in maximum dimension. SPLEEN: Normal. The spleen measures 11.3 cm in maximum dimension. FREE FLUID: None. US/US abdomen complete IMPRESSION: 1. There is generalized increase in hepatic echotexture, consistent with fatty infiltration or hepatocellular disease. Please correlate clinically. Characteristic pericholecystic sparing favors fatty infiltration. No focal hepatic mass or intrahepatic biliary dilatation is seen. 2. 2 nonmobile 6 mm gallbladder polyps are redemonstrated.
== END 2022-08-23 10:25 | disposition home or self-care (01) ==
LOC: HO.US 10:24
PROVIDERS: PCP Internal Medicine; Visit Provider Internal Medicine Gastroenterology
DX: K74.60 Unspecified cirrhosis of liver (principal); R10.11 Right upper quadrant pain
CPT/HCPCS: 76700

== ENCOUNTER 2022-11-10 13:48 | Outpatient (REF) | payer OTHER, SELFPAY ==
[2022-11-10 17:37] LABS: Estimated Average Glucose 280 mg/dL; Hemoglobin A1c % 11.4 %
[2022-11-10 20:45] LABS: Glucose Random 499 mg/dL (60-115)
== END 2022-11-10 13:49 | disposition home or self-care (01) ==
LOC: HO.LAB 13:48
PROVIDERS: PCP Internal Medicine; Visit Provider Physician Assistant Surgical
DX: E11.9 Type 2 diabetes mellitus without complications (principal); E66.01 Morbid (severe) obesity due to excess calories
CPT/HCPCS: 36415; 82947; 83036; 99453

== ENCOUNTER 2022-11-10 23:00 | Emergency (ER) | payer OTHER, SELFPAY ==
--- NOTE | 2022-11-10 | ECG_ITS ---
Test Reason : CHEST PAIN Blood Pressure : / mmHG Vent. Rate : 086 BPM Atrial Rate : 086 BPM P-R Int : 176 ms QRS Dur : 094 ms QT Int : 364 ms P-R-T Axes : 033 005 053 degrees QTc Int : 435 ms Normal sinus rhythm Normal ECG When compared with ECG of 06-OCT-2021 14:48, Premature ventricular complexes are no longer Present T wave amplitude has decreased in Anterior leads Referred By: Generic ED Physician Electronically Signed By:SUSANA HERNANDEZ
[2022-11-10 23:34] VITALS: BP 113/70; PULSE 95; RESP 16; TEMP 36.8; O2SAT 98; BMI 49.4
[2022-11-11 00:06] LABS: Hematocrit 39.2 % (37.0-47.0); Mean Corpuscular HGB Conc 33.2 g/dl (31.0-35.0); Mean Corpuscular Hemoglobin 28.1 pg (27.0-33.0); Mean Corpuscular Volume 84.7 fL (80.0-98.0); Mean Platelet Volume 10.9 fL (9.4-12.3); Platelet Count 295 X10*3/uL (160-400); Red Blood Count 4.63 X10*6/uL (4.20-5.50); Red Cell Distribution Width 13.1 % (11.0-16.0); White Blood Count 10.3 X10*3/uL (4.8-10.8)
[2022-11-11 00:07] LABS: Alanine Aminotransferase 23 U/L (0-31); Albumin Level 3.8 g/dL (3.5-5.0); Alkaline Phosphatase 94 U/L (39-117); Anion Gap 13 (12-20); Aspartate Amino Transferase 15 U/L (5-31); Bilirubin Total 0.5 mg/dL (0.0-1.0); Blood Urea Nitrogen 19 mg/dL (9-16); Calcium 9.8 mg/dL (8.4-10.2); Carbon Dioxide 21 mmol/L (22-29); Chloride 103 mmol/L (96-108); Creatinine Clr Calc Pharmacy 72.2; Estimated Glomerular Filt Rate 47; Glucose Random 381 mg/dL (60-115); Potassium 4.4 mmol/L (3.3-5.1); Sodium 133 mmol/L (135-145); Total Protein 7.6 g/dL (6.5-8.0)
[2022-11-11 00:09] LABS: Troponin-I High Sensitivity < 2.7 ng/L (<3.5-17.0)
--- NOTE | 2022-11-11 00:37 | PC.NURSE ---
critical lab 381, provider aware.
[2022-11-11 00:58] VITALS: BP 115/73; PULSE 70; RESP 16; TEMP 36.7; O2SAT 98
--- NOTE | 2022-11-11 01:08 | ED_ITS ---
HPI - General Adult General Chief complaint: General Medical Stated complaint: High blood sugar sent by Time Seen by Provider: 11/11/22 00:57 Related Data Home Medications Medication Instructions Recorded Confirmed budesonide-formoterol HFA 160 2 puff inhalation BID 03/04/20 10/14/22 mcg-4.5 mcg/actuation aerosol inhaler (Symbicort) dulaglutide 1.5 mg/0.5 mL 1.5 mg subcut QWEEK 03/04/20 11/10/22 subcutaneous pen injector insulin regular hum U-500 conc 500 See Rx Instructions subcut TIDWMEAL 03/04/20 11/10/22 unit/mL(3 mL) subcut pen fluticasone propionate 50 1 spray intranasal DAILY 07/06/20 10/14/22 mcg/actuation nasal spray,suspension glipizide 10 mg tablet, extended 10 mg PO BID 01/16/22 11/10/22 release 24 hr Previous Rx's Medication Instructions Recorded albuterol sulfate 90 mcg/actuation 2 puff inhalation Q4-6H PRN 11/09/21 aerosol inhaler (ProAir HFA) shortness of breath or wheezing 30 days #8.5 grams metoclopramide HCl 10 mg tablet 10 mg PO TID PRN for 01/15/22 nausea/vomiting #90 tabs lisinopril 5 mg tablet 5 mg PO DAILY #90 tabs 03/24/22 lubiprostone 8 mcg capsule 8 mcg PO BID 30 days #60 caps 08/04/22 (Amitiza) clotrimazole-betamethasone 1 1 appl topical BID 2 weeks #45 10/13/22 %-0.05 % topical cream grams meloxicam 15 mg tablet 15 mg PO DAILY PRN pain 30 days 10/13/22 #30 tabs lorazepam 0.5 mg tablet 0.5 mg PO TID PRN anxiety 30 days 10/27/22 #90 tabs omeprazole 20 mg capsule,delayed 20 mg PO BID 60 days #120 caps 10/27/22 release atorvastatin 40 mg tablet 40 mg PO BEDTIME 90 days #90 tabs 11/03/22 pramipexole 1 mg tablet 1 mg PO TID 30 days #90 tabs 11/03/22 tramadol 50 mg tablet See Rx Instructions .Route 11/03/22 .COMPLEX PRN pain 25 days #100 tabs spironolactone 100 mg tablet 100 mg PO BID 30 days #60 tabs 11/06/22 oxycodone 5 mg tablet 5 mg PO Q6-8H PRN severe pain 7 11/10/22 days #28 tabs Allergies Allergy/AdvReac Type Severity Reaction Status Date / Time adhesive tape Allergy Intermediate Rash Verified 11/10/22 15:17 empagliflozin Allergy Intermediate Rash Verified 11/10/22 15:17 [From JARDIANCE] sitagliptin [From JANUVIA] AdvReac Severe Rash,nausea, Verified 11/10/22 15:17 hypoglycemia metformin [METFORMIN] AdvReac Intermediate Rash, GI Verified 11/10/22 15:17 upset PMFSH Past Medical History Medical History Abdominal pain Anxiety Asthma Asthma Atypical chest pain Benign essential hypertension Blood dyscrasia Body mass index [BMI] 50.0-59.9, adult Chronic constipation Cirrhosis of liver without ascites COPD (chronic obstructive pulmonary disease) Depression Diabetes mellitus Diastolic dysfunction Dyslipidemia Dyspnea on effort Fatigue Fatty pancreas Gastroparesis GERD (gastroesophageal reflux disease) HTN (hypertension) Insomnia Liver cirrhosis Lumbar degenerative disc disease Morbid (severe) obesity due to excess calories Morbid obesity with BMI of 50.0-59.9, adult Nausea and vomiting Neuropathic pain of both feet Obstructive sleep apnea On beta kelsey at home MATILDA (obstructive sleep apnea) Pain and swelling of right lower extremity Pars defect of lumbar spine Pedal edema Periodic limb movement disorder Postlaminectomy syndrome, lumbar Pure hypercholesterolemia Rectal bleeding Restrictive lung disease Sleep apnea with use of continuous positive airway pressure (CPAP) Spondylolisthesis, lumbar region Spondylosis of lumbar spine Superficial bruising of lower leg Type 2 diabetes mellitus with diabetic autonomic (poly)neuropathy Surgical History H/O cardiac catheterization (~12/14/17) H/O section H/O colonoscopy History of appendectomy History of esophagogastroduodenoscopy (EGD) History of laryngoscopy (~02/10/19) History of lumbar discectomy History of surgery History of ventral hernia repair (~2008) Family History Family History Father Diabetes mellitus Hypertension Mother Diabetes mellitus Hypertension Uterine cancer History of heart attack Social History Social History Housing: Apartment Are you a primary healthcare network consultant to a significant other at home: No Do you presently have visiting nurse or other home services: Yes (Home Health Aide, VNA) Alcohol intake: never Patient Tobacco Use Status: Former Tobacco user Quit Date: 2005 Tobacco use type: Cigarette Years Smoked: 10 e-Cigarette/Vaping Use: Never Used Second Hand Smoke Exposure: No Advance Directives: No Advance Directives Information Provided: No service: No Current occupational status: disabled Cognitive needs: No Hearing needs: No Vision needs: Yes Physical Exam ED Vital Signs: Vital Signs - 24 hr 11/10/22 23:34 11/11/22 00:58 Temperature 98.3 F 98.0 F Pulse Rate 95 70 Respiratory Rate 16 16 Blood Pressure 113/70 115/73 Pulse Oximetry 98 98 Oxygen Delivery Method Room Air Room Air BMI result Body Mass Index 49.4 Medications Administered Discontinued Medications Generic Name Dose Route Start Last Admin Trade Name Freq PRN Reason Stop Dose Admin Sodium Chloride 1,000 mls @ 999 mls/hr 11/11/22 01:15 11/11/22 01:47 Ns IV 11/11/22 02:15 999 mls/hr .Q1H1M ZAKIYA Administration Insulin Human Regular 10 unit 11/11/22 01:09 11/11/22 01:47 Insulin Regular, Human 100 Unit/Ml 3 Ml Vial IVPUSH 11/11/22 01:10 10 unit ONCE ONE Administration Medical Decision Making Medical Decision Making [facility] Narrative: Patient was going to the doctors for her initial evaluation for gastric bypass. Had labs drawn. The sugar came back at almost 20 100. Sent to the ED for further evaluation. Sugar was still over 400. Given insulin and fluid. Monitor the emergency department. Repeat check patient's glucose is down to less than 200. There is no anion gap. Bicarb is normal. No evidence for DKA. Will discharge patient home close follow-up on outpatient basis. Lab Data [facility] Lab Attestation statement: I reviewed the patient's lab results. 11/10/22 23:41 11/10/22 23:41 Labs: Lab Results 06/23/23 06/23/23 06/23/23 Range/Units 23:23 23:41 23:41 WBC 10.3 (4.8-10.8) X10*3/uL RBC 4.63 (4.20-5.50) X10*6/uL Hgb 13.0 (12.0-16.0) g/dl Hct 39.2 (37.0-47.0) % MCV 84.7 (80.0-98.0) fL MCH 28.1 (27.0-33.0) pg MCHC 33.2 (31.0-35.0) g/dl RDW 13.1 (11.0-16.0) % Plt Count 295 (160-400) X10*3/uL MPV 10.9 (9.4-12.3) fL Absolute Nucleated RBC 0.000 (0.0-0.012) X10*3/uL Nucleated RBC % (auto) 0.0 (0.0-0.2) /100WBC Sodium 133 L (135-145) mmol/L Potassium 4.4 (3.3-5.1) mmol/L Chloride 103 (96-108) mmol/L Carbon Dioxide 21 L (22-29) mmol/L Anion Gap 13 (12-20) BUN 19 H (9-16) mg/dL Creatinine 1.21 (0.5-1.4) mg/dL Estim Creat Clear Calc 72.2 Estimated GFR 47 POC Glucose 378 H* (60-115) mg/dL Random Glucose 381 H* (60-115) mg/dL Calcium 9.8 (8.4-10.2) mg/dL Total Bilirubin 0.5 (0.0-1.0) mg/dL AST 15 (5-31) U/L ALT 23 (0-31) U/L Alkaline Phosphatase 94 (39-117) U/L Troponin I High Sens (<3.5-17.0) ng/L Total Protein 7.6 (6.5-8.0) g/dL Albumin 3.8 (3.5-5.0) g/dL 11/10/22 11/11/22 Range/Units 23:41 01:43 WBC (4.8-10.8) X10*3/uL RBC (4.20-5.50) X10*6/uL Hgb (12.0-16.0) g/dl Hct (37.0-47.0) % MCV (80.0-98.0) fL MCH (27.0-33.0) pg MCHC (31.0-35.0) g/dl RDW (11.0-16.0) % Plt Count (160-400) X10*3/uL MPV (9.4-12.3) fL Absolute Nucleated RBC (0.0-0.012) X10*3/uL Nucleated RBC % (auto) (0.0-0.2) /100WBC Sodium (135-145) mmol/L Potassium (3.3-5.1) mmol/L Chloride (96-108) mmol/L Carbon Dioxide (22-29) mmol/L Anion Gap (12-20) BUN (9-16) mg/dL Creatinine (0.5-1.4) mg/dL Estim Creat Clear Calc Estimated GFR POC Glucose (60-115) mg/dL Random Glucose (60-115) mg/dL Calcium (8.4-10.2) mg/dL Total Bilirubin (0.0-1.0) mg/dL AST (5-31) U/L ALT (0-31) U/L Alkaline Phosphatase (39-117) U/L Troponin I High Sens < 2.7 < 2.7 (<3.5-17.0) ng/L Total Protein (6.5-8.0) g/dL Albumin (3.5-5.0) g/dL External Record Review External record reviewed: Office record Chronic Conditions Patient?s care impacted by: Diabetes Discharge Plan Discharge Clinical Impression: Acute hyperglycemia Patient Disposition: Home, Self-Care Instructions: Diabetic Hyperglycemia (ED) Prescriptions: No Action metoclopramide HCl 10 mg tablet 10 mg PO TID PRN (Reason: for nausea/vomiting) Qty: 90 3RF lisinopril 5 mg tablet 5 mg PO DAILY Qty: 90 2RF omeprazole 20 mg capsule,delayed release(DR/EC) 20 mg PO BID 60 Days Qty: 120 3RF lorazepam 0.5 mg tablet 0.5 mg PO TID PRN (Reason: anxiety) 30 Days Qty: 90 0RF pramipexole 1 mg tablet 1 mg PO TID 30 Days Qty: 90 1RF tramadol 50 mg tablet See Rx Instructions .ROUTE .COMPLEX PRN (Reason: pain) 25 Days Qty: 100 1RF Rx Instructions: Take 1 to 2 tablets orlly twice a day as needed for pain PRN; atorvastatin 40 mg tablet 40 mg PO BEDTIME 90 Days Qty: 90 1RF spironolactone 100 mg tablet 100 mg PO BID 30 Days Qty: 60 1RF oxycodone 5 mg tablet 5 mg PO Q6-8H PRN (Reason: severe pain) 7 Days Qty: 28 0RF dulaglutide 1.5 mg/0.5 mL pen injector 1.5 mg subcut QWEEK budesonide-formoterol [Symbicort] 160-4.5 mcg/actuation HFA aerosol inhaler 2 puff inhalation BID insulin regular hum U-500 conc 500 unit/mL (3 mL) insulin pen See Rx Instructions subcut TIDWMEAL Rx Instructions: Per Sliding Scale. meloxicam 15 mg tablet 15 mg PO DAILY PRN (Reason: pain) 30 Days Qty: 30 1RF Rx Instructions: Take with food clotrimazole-betamethasone 1-0.05 % cream 1 appl topical BID 14 Days Qty: 45 1RF glipizide 10 mg tablet extended release 24hr 10 mg PO BID fluticasone propionate 50 mcg/actuation spray,suspension 1 spray intranasal DAILY albuterol sulfate [ProAir HFA] 90 mcg/actuation HFA aerosol inhaler 2 puff inhalation Q4-6H PRN (Reason: shortness of breath or wheezing) 30 Days Qty: 8.5 2RF lubiprostone [Amitiza] 8 mcg capsule 8 mcg PO BID 30 Days Qty: 60 3RF Referrals: Bi Dennis MD [Primary Care Provider] - 11/13/22
[2022-11-11] MEDS: Insulin Regular, Human 100 UNIT/ML 3 ML VIAL 10 UNIT IVPUSH (01:47)
[2022-11-11] MEDS: 0.9 % Sodium Chloride 1,000 ML 999 ML IV (01:47)
[2022-11-11 02:09] LABS: Glucose, Whole Blood 378 mg/dL (60-115)
[2022-11-11 02:11] LABS: Troponin-I High Sensitivity < 2.7 ng/L (<3.5-17.0)
[2022-11-11 02:36] LABS: Glucose, Whole Blood 166 mg/dL (60-115)
[2022-11-11 03:15] VITALS: BP 115/76; PULSE 74; RESP 12; TEMP 36.7; O2SAT 97
== END 2022-11-11 03:15 | disposition home or self-care (01) ==
PROVIDERS: Emergency Provider Emergency Medicine Emergency Medical Services; PCP Internal Medicine
DX: E11.65 Type 2 diabetes mellitus with hyperglycemia (principal); I10 Essential (primary) hypertension; E78.00 Pure hypercholesterolemia, unspecified; Z79.4 Long term (current) use of insulin; Z79.899 Other long term (current) drug therapy; E66.9 Obesity, unspecified; Z68.42 Body mass index [BMI] 45.0-49.9, adult
CPT/HCPCS: 36415; 80053; 82947; 84484; 85027; 93005; 96360; 96374; 99284

== ENCOUNTER → 2022-11-17 13:56 | Outpatient (BNVA) | payer OTHER, SELFPAY | PROVIDERS: PCP Internal Medicine; Visit Provider Physician Assistant Surgical | DX: E11.9 Type 2 diabetes mellitus without complications (principal); E66.01 Morbid (severe) obesity due to excess calories ==

== ENCOUNTER 2022-12-07 07:56 | Outpatient (AMB) | payer OTHER, SELFPAY ==
--- NOTE | 2022-12-07 08:03 | A.OFFVIS_ITS ---
Intake Vital Signs 12/07/22 08:19 Height 5 ft 4 in Weight 287 lb BMI 49.3 BP 125/73 Blood Pressure Location Lt brachial Position Sitting Pulse 95 Pulse Oximetry (%) 96 Intake Visit Reasons: 4 month follow up Intake Note: Patient 4 month follow up for Patient cc: fatigue, nauseas, abdominal pain/bloating, acid reflex on and off, and constipation, some dysphagia. Business Systems Manager Required: No Accompanied by: Self / Same As Patient Allergies adhesive tape Allergy (Intermediate, Verified 01/19/23 11:49) Rash empagliflozin [From JARDIANCE] Allergy (Intermediate, Verified 01/19/23 11:49) Rash sitagliptin [From JANUVIA] Adverse Reaction (Severe, Verified 01/19/23 11:49) Rash,nausea, hypoglycemia metformin [METFORMIN] Adverse Reaction (Intermediate, Verified 01/19/23 11:49) Rash, GI upset Medication List - Last Reconciled 12/07/22 by Annika Redding MD albuterol sulfate 90 mcg/actuation (ProAir HFA) 2 puffs inhalation Q4-6H PRN 30 days atorvastatin 40 mg PO BEDTIME 90 days budesonide-formoterol 160-4.5 mcg/actuation (Symbicort) 2 puffs inhalation BID clotrimazole-betamethasone 1-0.05 % 1 appl topical BID 2 weeks dulaglutide 1.5 mg subcut QWEEK fluticasone propionate 50 mcg/actuation 1 spray intranasal DAILY glipizide ER 10 mg PO BID insulin regular hum U-500 conc Per Sliding Scale. lisinopril 5 mg PO DAILY lorazepam 0.5 mg PO TID PRN 30 days lubiprostone (Amitiza) 8 mcg PO BID 30 days meloxicam 15 mg PO DAILY PRN 30 days metoclopramide HCl 10 mg PO TID PRN omeprazole 20 mg PO BID 60 days oxycodone 5 mg PO Q6-8H PRN 7 days peg 3350-electrolytes 236-22.74-6.74 -5.86 gram 240 mL PO Q10M pramipexole 1 mg PO TID 30 days spironolactone 100 mg PO BID 30 days tramadol Take 1 to 2 tablets orlly twice a day as needed for pain PRN; 25 days HPI 4 month follow up HPI Details GI CLINIC VISIT FOR THIS 52-YEAR-OLD FEMALE FOR FOLLOW-UP OF: ? 1. Gastroparesis - K31.84 (Primary) ? 2. Slow transit constipation - K59.01 ? 3. Hepatic steatosis - K76.0 ? 4. Past Hepatitis C infection ?LABS IN [facility]:?12/17/19 normal CBC 10/06/19 Reviewed - INR 1.1, normal LFTs, Liver Fibrosis score of 0.23, fibrosis stage F0-F1 ?IMAGING STUDIES: 07/2021 Abd US showed: 2 nonmobile echogenic polyps. ?Mild hepatic steatosis with enlarged left hepatic lobe. No focal lesion seen. ABDOMINAL ULTRASOUND SHOWED: ? 1. There is generalized increase in hepatic echotexture, consistent ? with fatty infiltration or hepatocellular disease. Please correlate ? clinically. Characteristic pericholecystic sparing favors fatty ? infiltration. No focal hepatic mass or intrahepatic biliary dilatation is seen. ? 2. 4 mm and 3 mm gallbladder polyps are of incidental note. These appear stable from 10/30/2018. ? 3. A simple right renal cyst is of incidental note. ? 2019 Elastography:?Peyb-pe-gctyudru fibrosis stage F2-F3. ENDOSCOPIC PROCEDURES:? 12/28/20 EGD AND COLONOSCOPY SHOWED: ESOPHAGUS: Tortuous esophagus with increased tertiary contractions without stricture ring or varices. STOMACH:? Gastritis with chronic appearing erosion DUODENUM:? Normal - biopsied to check for celiac sprue Colonoscopy Findings:? One large and one small polyps removed Moderate diverticulosis seen in the sigmoid colon Moderate hemorrhoids on retroflexed exam. Plan: Repeat Colonoscopy interval based on path results - in 2 years if polyps are adenomatous and 10 years if polyps are hyperplastic. Above findings were reviewed with the patient and colon polyps and diverticulosis handouts were given in the discharge area 02/12/2018 EGD SHOWED: LARYNX:? Changes of LPRD ESOPHAGUS:? Normal STOMACH:? Gastritis, moderate amount of bile in the stomach Symptoms of nocturnal choking may be due to bile reflux versus delayed gastric emptying. Plan:? Continue pantoprazole medications (Omeprazole at 20 mg PO once daily) ?TODAY'S VISIT Patient cc: fatigue, nauseas, abdominal pain/bloating, acid reflex on and off, and constipation, some dysphagia. Resumed taking Amitiza 8 mg twice a day Has a BM once a day associated with straining. Denies recent rectal bleeding. Continues to have nausea and epigastric burning PAST VISITS: Continues to have bloating and constipation with intermittent rectal bleeding. Has a BM every other day - hard stools with straining. Drinking a lot of water. Also notes dysphagia and nausea Returns after a hiatus of 18 months - has been dealing with other issues. CC: Pt states she has been throwing up a lot and is having trouble eating. She has been feeling nausea and her ribs hurt from gagging. Pains are in the middle of her stomach and in the bottom of the esophagus and she feels as though her food is stuck there and it is not going down. Complains of nausea, vomiting. Notes dysphagia to solid food - feels food is stuck in the middle of the chest. Keeps drinking fluids - feels food is there all day. Continues to have constipation. Feels hungry and unable to eat. Has one BM daily. Unable to go out - Feels sick to the stomach with gagging followed by vomiting - nothing comes up. Has lost weight since she is not able to eat full meals - weighed 291 lbs ?PAST VISIT: Had a temporary implant for back pain and having a permananet implant placement on 10/08/20 ?? ? Continues to have RUQ pain. ?? ? Has had nausea and throwing up a lot. ?? ? She would like to have her back fixed first and then schedule the EGD and Colonoscopy. ?? ? Denies recent rectal bleeding. Notes intermittent rectal bleeding. ? ? ? Annoying pains on the bottom of her left breast. ?? ? Taking Omeprazole and notes increased heartburn than before. ?? ? Unable to eat anything for 2 days and was drinking water. ?? ? Only thing which helped was eileen tea. ?? ? Thinks she may have lost a? few lbs and is unsure. ? ? ? Did not have the colonoscopy since she was afraid - there is a lot going on. ? Uncontrolled blood sugars despite taking Insulin. ? Wakes up with nausea and has intermittent vomiting. ? Has nausea looking at the food. ? ? ? Feels bloated all the time [facility] Medical History (Updated 01/26/23 @ 18:04 by Bi Dennis MD) Degenerative joint disease of right shoulder Restrictive lung disease MATILDA (obstructive sleep apnea) Asthma COPD (chronic obstructive pulmonary disease) Blood dyscrasia Superficial bruising of lower leg Pain and swelling of right lower extremity Morbid obesity with BMI of 50.0-59.9, adult Pure hypercholesterolemia Fatigue Diabetes mellitus Pedal edema Nausea and vomiting Abdominal pain Atypical chest pain On beta kelsey at home Dyspnea on effort Asthma Sleep apnea with use of continuous positive airway pressure (CPAP) HTN (hypertension) Liver cirrhosis Pars defect of lumbar spine Spondylolisthesis, lumbar region Postlaminectomy syndrome, lumbar Spondylosis of lumbar spine Rectal bleeding Fatty pancreas Chronic constipation Cirrhosis of liver without ascites Body mass index [BMI] 50.0-59.9, adult Morbid (severe) obesity due to excess calories Depression Anxiety Insomnia Obstructive sleep apnea Periodic limb movement disorder Neuropathic pain of both feet GERD (gastroesophageal reflux disease) Gastroparesis Lumbar degenerative disc disease Benign essential hypertension Dyslipidemia Diastolic dysfunction Type 2 diabetes mellitus with diabetic autonomic (poly)neuropathy Surgical History H/O colonoscopy History of surgery History of esophagogastroduodenoscopy (EGD) H/O cardiac catheterization (~12/14/17) H/O section History of laryngoscopy (~02/10/19) History of ventral hernia repair (~2008) History of appendectomy History of lumbar discectomy Family History Father Diabetes mellitus Hypertension Mother Diabetes mellitus Hypertension Uterine cancer History of heart attack Social History Housing: Apartment Are you a primary pet care assistant to a significant other at home: No Do you presently have visiting nurse or other home services: Yes (Home Health Aide, VNA) Alcohol intake: never Patient Tobacco Use Status: Former Tobacco user Quit Date: 2005 Tobacco use type: Cigarette Years Smoked: 10 e-Cigarette/Vaping Use: Never Used Second Hand Smoke Exposure: No service: No Current occupational status: disabled Cognitive needs: No Hearing needs: No Vision needs: Yes Review of Systems Const All systems reviewed & are unremarkable except as noted in HPI and below Physical Exam Vital Signs: Last Vital Signs Pulse 95 12/07/22 08:19 BP 125/73 12/07/22 08:19 Pulse Ox 96 12/07/22 08:19 BMI result Body Mass Index 49.3 Const General: healthy appearing and no acute distress Nutritional Appearance: obese Orientation/consciousness: patient oriented x3 Limitations: no limitations HEENT Head: Yes normal to inspection Ears: hearing grossly normal bilaterally Eyes Sclerae: sclerae normal Pupils: Equal, round and reactive pupils present Neck Neck: Yes normal visual inspection Chest Chest palpation & inspection: normal inspection of the chest Resp Effort & Inspection: normal respiratory effort Auscultation: clear to auscultation bilaterally Cardio Palpation: normal PMI Rate: regular rate Rhythm: regular rhythm Heart sounds: S1 normal heart sound present, S2 normal heart sound present and no murmurs GI Palpation (GI): Soft to palpation, nontender and No hepatosplenomegaly present Auscultation: normal bowel sounds Rectal Exam - Female: deferred Skin General skin exam: no rashes or lesions noted Neuro General: patient oriented x3, gait normal and moves all extremities Cranial nerves: Yes Equal, round and reactive pupils present Psych Appearance: grossly normal Mental Status: mental status grossly normal Assessment & Plan Assessment & Plan (1) Nausea & vomiting: Code(s): R11.2 - Nausea with vomiting, unspecified (2) Epigastric pain: Code(s): R10.13 - Epigastric pain (3) RUQ abdominal pain: Code(s): R10.11 - Right upper quadrant pain (4) Gastroparesis: Code(s): K31.84 - Gastroparesis (5) Colon cancer screening: Code(s): Z12.11 - Encounter for screening for malignant neoplasm of colon (6) Liver cirrhosis: Comment: Hepatic steatosis complicated by suspected compensated cirrhosis likely related to a combination of obesity and past hepatitis C infection. Patient expressed concern regarding progressive liver disease. She was advised weight reduction since she is not interested in bariatric surgery at present Code(s): K74.60 - Unspecified cirrhosis of liver (7) Chronic constipation: Comment: Continue Senna and Lubiprotone Code(s): K59.09 - Other constipation (8) GERD (gastroesophageal reflux disease): Comment: Upper GI series done in 2019 came out normal Code(s): K21.9 - Gastro-esophageal reflux disease without esophagitis Qualifiers: Esophagitis presence: without esophagitis Qualified Code(s): K21.9 - Gastro-esophageal reflux disease without esophagitis Plan 52 YF with LVH, moderate, echo 03/03 with normal LV systolic function, DM 2 - Diabetes mellitus type 2, HTN - Hypertension, Hepatic Steatosis/Fatty Liver, RLL nodule - 05/[address], MATILDA followed in GI for hepatic steatosis with cirrhosis on elastography (normal LFts). Patient also complains of dysphagia, decreased appetite, early satiety, nausea and vomiting likely due to diabetic gastroparesis - confirmed on gastric emptying study. She has chronic constipation most likely slow transit constipation due to long- standing diabetes, use of pain medication and adhesions from past surgeries. Patient was advised to increase senna to 2 tablets twice daily for constipation. ? She has been taking? Amitiza twice daily with partial relief.? EGD and colonoscopy was performed in 12/2020 and findings as noted above. Repeat colonoscopy in 6 months to FU on large TV adenoma at 60 cms. Patient was advised to continue metoclopramide 10 mg 3 times daily for gastroparesis and constipation and add Mirtazepine 7.5 mg at bedtime 08/04/22 Resume lubiprostone 8 mg twice daily and schedule an appt for an EGD (GERD and Dysphagia) and Colonoscopy (FU of colon polyps) in Sep, 2022 EGD and colon scheduled on 02/16/23 and had to be cancelled pending cardiology workup FU in 4 months Medications: Refilled metoclopramide HCl 10 mg PO TID PRN 90 tabs 3RF for nausea/vomiting K31.84 - Gastroparesis Coding Level of Care Code Est Pt Level 4 (44318) Diagnoses Nausea & vomiting R11.2 Epigastric pain R10.13 RUQ abdominal pain R10.11 Gastroparesis K31.84 Colon cancer screening Z12.11 Liver cirrhosis K74.60 Chronic constipation K59.09 Gastroesophageal reflux disease without esophagitis K21.9 Esophagitis presence: without esophagitis Time Spent (min) 22
[2022-12-07 08:19] VITALS: BP 125/73; PULSE 95; O2SAT 96; BMI 49.3
== END 2022-12-07 08:54 | disposition home or self-care (01) ==
PROVIDERS: Visit Provider Internal Medicine Gastroenterology
DX: R11.2 Nausea with vomiting, unspecified (principal); R10.13 Epigastric pain; R10.11 Right upper quadrant pain; K31.84 Gastroparesis; Z12.11 Encounter for screening for malignant neoplasm of colon; K74.60 Unspecified cirrhosis of liver; K59.09 Other constipation; K21.9 Gastro-esophageal reflux disease without esophagitis
CPT/HCPCS: 99214

== ENCOUNTER → 2022-12-07 07:56 | Outpatient (BNVA) | payer OTHER, SELFPAY | PROVIDERS: Visit Provider Internal Medicine Gastroenterology | DX: E11.43 Type 2 diabetes mellitus with diabetic autonomic (poly)neuropathy (principal); K31.84 Gastroparesis; K59.09 Other constipation; R10.13 Epigastric pain; R10.11 Right upper quadrant pain; K21.9 Gastro-esophageal reflux disease without esophagitis; K74.60 Unspecified cirrhosis of liver | CPT/HCPCS: 99212 ==

== ENCOUNTER 2023-01-19 10:33 | Outpatient (AMB) | payer OTHER, SELFPAY ==
--- NOTE | 2023-01-19 10:48 | A.OFFPC_ITS ---
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 Accompanied by: Self / Same As Patient Allergies adhesive tape Allergy (Intermediate, Verified 01/19/23 11:49) Rash empagliflozin [From JARDIANCE] Allergy (Intermediate, Verified 01/19/23 11:49) Rash sitagliptin [From JANUVIA] Adverse Reaction (Severe, Verified 01/19/23 11:49) Rash,nausea, hypoglycemia metformin [METFORMIN] Adverse Reaction (Intermediate, Verified 01/19/23 11:49) Rash, GI upset Medication List - Last Reconciled 01/19/23 by Bi Dennis MD albuterol sulfate 90 mcg/actuation (ProAir HFA) 2 puffs inhalation Q4-6H PRN 30 days atorvastatin 40 mg PO BEDTIME 90 days budesonide-formoterol 160-4.5 mcg/actuation (Symbicort) 2 puffs inhalation BID clotrimazole-betamethasone 1-0.05 % 1 appl topical BID 2 weeks dulaglutide (Trulicity) 4.5 mg subcut QWEEK fluticasone propionate 50 mcg/actuation 1 spray intranasal DAILY glipizide ER 10 mg PO BID insulin regular hum U-500 conc 190 units subcut BID lisinopril 10 mg PO DAILY lorazepam 0.5 mg PO TID PRN 30 days lubiprostone (Amitiza) 8 mcg PO BID 30 days meloxicam 15 mg PO DAILY PRN 30 days metoclopramide HCl 10 mg PO TID PRN omeprazole 20 mg PO BID 60 days oxycodone 5 mg PO Q6-8H PRN 7 days peg 3350-electrolytes 236-22.74-6.74 -5.86 gram 240 mL PO Q10M pramipexole 1 mg PO TID 30 days spironolactone 100 mg PO BID 30 days tramadol Take 1 to 2 tablets orlly twice a day as needed for pain PRN; 25 days Tobacco use date assessed: 01/19/23 Dental Screening Dental Screen Date: 01/19/23 Did you have a dental visit in the last 12 months?: Yes Did you have a dental problem in the last 6 months where you did not have access to dental care?: No Was dental information given to patient?: Patient has dentist HPI DM, hyperlipidemia HPI Details Patient comes in today for her follow up visit States that she just recently had some dental work/dental extractions done Relates that she has been experiencing increased pain over her right shoulder lately - recalls that her shoulder just started hurting a lot one day last month with no recent injury or trauma She was seen by [facility] and sent for x-rays, which did not reveal any significant pathology Had an MRI of the shoulder done at [facility] a couple of weeks ago that revealed (+)high-grade, near full-thickness, partial bursal tear of the supraspinatus tendon with tendinopathies as well as osteoarthritis changes Was advised surgical repair but they cannot do her surgery until her HgbA1c is down to 8.0% or less Patient went to see [facility] Endocrinology for follow up of her diabetes last week - her HgbA1c was most recently at 11.7% but patient states that it was at 10.0% She reportedly had her Humulin U-500 dosing adjusted/increased to 190 units BID and continued on Trulicity 4.5 mg once a week and advised to limit her carb intake She will be seen again in 6 months for follow up but was advised to call earlier if needed States that she saw cardiology yesterday and is being scheduled for cardiac testing due to her ongoing chest pains and LUND Still has chronic low back pain and is unable to proceed any further with interventional pain management at this time due to her other ongoing issues and states that she will need to stay on her current pain meds at this time Was not able to get her follow up labs done prior to her visit today [facility] Medical History (Updated 01/19/23 @ 12:26 by Bi Dennis MD) Abdominal pain Anxiety Asthma Asthma Atypical chest pain Benign essential hypertension Blood dyscrasia Body mass index [BMI] 50.0-59.9, adult Chronic constipation Cirrhosis of liver without ascites COPD (chronic obstructive pulmonary disease) Degenerative joint disease of right shoulder Depression Diabetes mellitus Diastolic dysfunction Dyslipidemia Dyspnea on effort Fatigue Fatty pancreas Gastroparesis GERD (gastroesophageal reflux disease) HTN (hypertension) Insomnia Liver cirrhosis Lumbar degenerative disc disease Morbid (severe) obesity due to excess calories Morbid obesity with BMI of 50.0-59.9, adult Nausea and vomiting Neuropathic pain of both feet Obstructive sleep apnea On beta kelsey at home MATILDA (obstructive sleep apnea) Pain and swelling of right lower extremity Pars defect of lumbar spine Pedal edema Periodic limb movement disorder Postlaminectomy syndrome, lumbar Pure hypercholesterolemia Rectal bleeding Restrictive lung disease Sleep apnea with use of continuous positive airway pressure (CPAP) Spondylolisthesis, lumbar region Spondylosis of lumbar spine Superficial bruising of lower leg Type 2 diabetes mellitus with diabetic autonomic (poly)neuropathy Surgical History H/O cardiac catheterization (~12/14/17) H/O section H/O colonoscopy History of appendectomy History of esophagogastroduodenoscopy (EGD) History of laryngoscopy (~02/10/19) History of lumbar discectomy History of surgery History of ventral hernia repair (~2008) Family History Father Diabetes mellitus Hypertension Mother Diabetes mellitus Hypertension Uterine cancer History of heart attack Social History Housing: Apartment Are you a primary career guidance technician to a significant other at home: No Do you presently have visiting nurse or other home services: Yes (Home Health Aide, VNA) Alcohol intake: never Patient Tobacco Use Status: Former Tobacco user Quit Date: 2005 Tobacco use type: Cigarette Years Smoked: 10 e-Cigarette/Vaping Use: Never Used Second Hand Smoke Exposure: No service: No Current occupational status: disabled Cognitive needs: No Hearing needs: No Vision needs: Yes Questionnaire PHQ-9 Over the last 2 weeks, how often have you been bothered by any of the following problems? 1. Little interest or pleasure in doing things: several days 2. Feeling down, depressed, or hopeless: several days 3. Trouble falling or staying asleep, or sleeping too much: several days 4. Feeling tired or having little energy: several days 5. Poor appetite or overeating: several days 6. Feeling bad about yourself - or that you are a failure or have let yourself or your family down: not at all 7. Trouble concentrating on things, such as reading the newspaper or watching television: not at all 8. Moving or speaking so slowly that other people could have noticed. Or the opposite - being so fidgety or restless that you have been moving around a lot more than usual: not at all 9. Thoughts that you would be better off or of hurting yourself in some way: not at all Total score: 5 Depression Screening Interpretation: Positive Depression Screening Follow-up: Existing condition and In treatment 63784 - PHQ-9 Billing: Yes Source: Developed by Drs. Tim Manning, Estephanie Newell, Lawrence Moreno and colleagues, with an educational amira from [employer]. Thrive Questionnaire Date Thrive assessed: 01/19/23 I am a: Patient What is your living situation today?: I have a steady place to live Within the past 12 months, did the food you bought not last and you didn't have the money to get more?: Never true Within the past 12 months, did you worry whether your food would run out before you got money to buy more?: Never true Do you have trouble paying for medicines?: No Do you have trouble getting transportation to medical appointments?: No Do you have trouble paying your heating and electricity bill?: No Do you have trouble taking care of your child, family member or friend?: No Do you have trouble with day-to-day activities such as bathing, preparing meals, shopping, managing finances, etc.?: No Are you currently unemployed and looking for a job?: No Are you interested in more education?: No Please select the resources that you would like help with: None Currently or been in a relationship where the following occur: no concerns reported AUDIT C Alcohol Use Questionnaire (AUDIT-C) 1. How often do you have a drink containing alcohol?: Never 3. How often do you have six or more drinks on one occasion?: Never Total Score: 0 Score Reviewed/Action Taken: Yes CEDRIC-7 AMB Questionnaire CEDRIC-7 Date CEDRIC - 7 assessed: 01/19/23 Feeling nervous, anxious, or on edge: 0 = Not at all Not being able to stop or control worryin = Not at all Worrying too much about different things: 0 = Not at all Trouble relaxin = Not at all Being so restless that it is hard to sit still: 0 = Not at all Becoming easily annoyed or irritable: 0 = Not at all Feeling afraid as if something awful might happen: 0 = Not at all Total CEDRIC-7 score (0-4 normal; 5-9 mild; 10-14 moderate; 15-21 severe): 0 Source: Developed by Drs. Tim Manning, Estephanie Newell, Lawrence Moreno and colleagues, with an educational amira from [employer]. Review of Systems Const Denies chills, Reports fatigue, Denies fever(s) and Denies headache(s) ENT Denies dysphagia, Denies dizziness, Denies otalgia, Denies headache(s), Denies neck pain, Denies odynophagia and Denies sore throat Card Denies chest pain, Denies palpitations and Reports dyspnea on exertion Resp Denies cough and Reports dyspnea on exertion GI Denies abdominal pain, Denies constipation, Denies dysphagia, Denies heartburn, Denies diarrhea, Denies nausea, Denies odynophagia and Denies vomiting Denies difficulty voiding, Denies nocturia and Denies dysuria Musc Reports back pain (over the lower back - chronic), Reports arthralgias (increased over the right shoulder lately) and Denies neck pain Neuro Denies dizziness and Denies headache(s) Endo Reports fatigue and Denies palpitations Physical exam (Primary Care) Vital Signs: Last Vital Signs Pulse 102 H 01/19/23 10:49 BP 124/78 01/19/23 10:49 Pulse Ox 94 01/19/23 10:49 Oxygen Delivery Method Room Air 01/19/23 10:49 BMI result Body Mass Index 51.0 Tobacco/Smoking Status: Tobacco use Status Tobacco use date assessed 01/19/23 01/19/23 10:57 Patient Tobacco Use Status Former Tobacco user 01/19/23 10:57 Tobacco use type Cigarette 01/19/23 10:57 e-Cigarette/Vaping Use Never Used 01/19/23 10:57 PHQ-9: PHQ-9 Score PHQ-9: Total score 5 01/19/23 10:57 Depression Screening Interpretation: Positive Depression Screening Follow-up: Existing condition and In treatment Thrive Assessment: Date of Thrive Assessment Date Thrive assessed 01/19/23 01/19/23 10:57 Currently or been in a relationship where the following occur: no concerns reported Const General: no acute distress and alert HENMT Ears: TM's normal bilaterally and EAC's normal Throat: Yes posterior oropharynx normal and Yes tonsils normal (no TP congestion noted) Neck Neck: Yes no lymphadenopathy and Yes supple Resp Auscultation: clear to auscultation bilaterally, no rales and no wheezes Cardio Rate: regular rate Rhythm: regular rhythm Heart sounds: no murmurs GI Palpation (GI): Soft to palpation, nontender and No hepatosplenomegaly present Back/Spine/Pelvis Thoracic/Lumbar Spine: lumbar spinal tenderness Skin Other: (+) large patch of scaling rash over the lateral aspect of the left ankle and dorsolateral side of the left foot Extrem General: Yes no clubbing, cyanosis or edema Right upper extremity: shoulder/upper arm Details: tenderness Location: of the A-C joint and abnormal ROM (ROM limited due to pain) Assessment and Plan Assessment & Plan (1) Diabetes mellitus: Comment: Out of control in the past. Has since been more compliant with medication with better control. 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 Plan: States that her HgbA1c was most recently at 10.0% but endocrinology OV note from a couple of weeks ago listed her at 11.7% (she was at 13.2% on her in-office HgbA1c a few months ago) - goal is <7.0% but she was advised to get it at least to 8.0% before orthopedics will consider scheduling her for right shoulder surgery Reinforced diabetic diet Continue Trulicity 4.5 mg SQ once a week and her Humulin U-500 was increased to 190 units BID with breakfast and with dinner Continue Glipizide ER 10 mg BID Follow-up with [facility] End[facility]ology scheduled Have advised patient previously that an insulin pump may be the best option for her at this time - she should be discussing this further with endocrinology (2) Pure hypercholesterolemia: Code(s): E78.00 - Pure hypercholesterolemia, unspecified Plan: Was again not able to get her follow-up labs done prior to today's visit Reinforced low cholesterol diet Continue Atorvastatin 40 mg QD Will recheck her labs and fasting lipids in 2 months for follow up (new orders placed) (3) Benign essential hypertension: Code(s): I10 - Essential (primary) hypertension Plan: Reinforced low sodium diet - goal is systolic BP of 120 mm or less Continue Lisinopril 10 mg QD and Spironolactone 100 mg BID (4) Degenerative joint disease of right shoulder: Code(s): M19.011 - Primary osteoarthritis, right shoulder Qualifiers: Osteoarthritis type: primary Qualified Code(s): M19.011 - Primary osteoarthritis, right shoulder Plan: Recent right shoulder MRI revealed (+) high-grade, near full-thickness, partial bursal tear of the supraspinatus tendon with tendinopathies as well as o steoarthritis changes She was advised surgical repair by [facility] but they cannot do her surgery until her diabetes is better controlled and her HgbA1c is down to 8.0% or less Follow up with [facility] as scheduled (5) Spondylolisthesis, lumbar region: Comment: Nevro spinal cord stimulator trial was very effective to treat her pain she reports 90% of the pain relief. She reports up to 100 pain relieve when she is at rest. She reports no pain when she is in the situations when iron her pain was previously bothering her a lot. I will schedule her for implantation of spinal cord stimulator. Another consideration for the Nevro machine is this patient has obstructive sleep apnea and it is very difficult to achieve sedation for wake up during the surgery. With Nevro machine the insertion of the spinal cord stimulator not require awareness in the middle of the case. Code(s): M43.16 - Spondylolisthesis, lumbar region Plan: Has POSTLAMINECTOMY SYNDROME She has responded very well to trial of SCS in the past and was originally scheduled for SCS insertion with Dr. Mckeon under local/epidural anesthesia on 07/10/2022 but procedure was postponed until patient can get her diabetes under better control Continue Oxycodone 5 mg Q 6 hours PRN for now (6) Asthma: Comment: Pulmonary function test in 2018 was normal. But she has had clinical picture of mild intermittent bronchial asthma. And has been using Symbicort but does not like the taste TX: See under COPD. Wixela 250-50 one inh bid is added Code(s): J45.909 - Unspecified asthma, uncomplicated Qualifiers: Asthma severity: mild Asthma persistence: intermittent Asthma complication type: uncomplicated Qualified Code(s): J45.20 - Mild intermittent asthma, uncomplicated Plan: Stable - continue Symbicort 160-4.5 mg 1 inhalation BID and Albuterol HFA 2 puffs 4 times a day as needed Follow up with pulmonary (Dr. Olmos) as scheduled (7) Chronic constipation: Comment: Continue Senna and Lubiprotone Code(s): K59.09 - Other constipation Plan: Reinforced increased oral fluids and dietary fiber Continue Amitiza 8 mcg BID and Senna 8.6 mg PRN - states that her constipation has been better controlled since she was started on Amitiza by Dr. Redding a few months ago Follow up with GI as scheduled (8) Gastroparesis: Code(s): K31.84 - Gastroparesis Plan: Continue Metoclopramide 10 mg TID PRN Follow up with GI as scheduled (9) GERD (gastroesophageal reflux disease): Comment: Upper GI series done in 2019 came out normal Code(s): K21.9 - Gastro-esophageal reflux disease without esophagitis Qualifiers: Esophagitis presence: without esophagitis Qualified Code(s): K21.9 - Gastro-esophageal reflux disease without esophagitis Plan: Dietary restrictions reinforced Advised that her symptoms may actually be due to her gastroparesis rather than actual refkux disease Continue Omeprazole 20 mg BID (10) Periodic limb movement disorder: Code(s): G47.61 - Periodic limb movement disorder Plan: Continue Pramipexole 1 mg TID (11) Anxiety: Code(s): F41.9 - Anxiety disorder, unspecified Plan: Continue Lorazepam 0.5 mg TID PRN (12) Depression: Code(s): F32.9 - Major depressive disorder, single episode, unspecified Qualifiers: Depression Type: major depressive disorder Major depression recurrence: recurrent Active/Remission status: currently active Major depression episode severity: unspecified Qualified Code(s): F33.9 - Major depressive disorder, recurrent, unspecified Plan: Continue Citalopram 10 mg QD Follow-up with Psychiatry as scheduled (13) Morbid obesity with BMI of 50.0-59.9, adult: Comment: Patient i her weight and she is trying to reduce s being followed by Endocrinology service, She is on low carbs diet, and Dulaglutide once a week , trying to reduce her weight. Code(s): E66.01 - Morbid (severe) obesity due to excess calories; Z68.43 - Body mass index [BMI] 50.0-59.9, adult Plan: Reinforced diet; exercise and weight loss are unrealistic given patient's multiple physical issues and comorbidities and poor activity tolerance Plan Follow up in 2 months Orders: Orders Lipid Panel 2 Months E78.00 - Pure hypercholesterolemia, unspecified Hemoglobin A1c 2 Months E11.9 - Type 2 diabetes mellitus without complications Complete Blood Count Auto Diff 2 Months I10 - Essential (primary) hypertension Comprehensive Burns. Panel Fast 2 Months E78.00 - Pure hypercholesterolemia, unspecified TSH reflex Free T4 2 Months E78.00 - Pure hypercholesterolemia, unspecified Microalbumin, Random (w Creat) 2 Months E11.9 - Type 2 diabetes mellitus without complications UA CC w/rflx Micro + Cult 2 Months R30.0 - Dysuria Vitamin D 25-OH Total 2 Months E55.9 - Vitamin D deficiency, unspecified Vitamin B12 and Folate 2 Months E53.8 - Deficiency of other specified B group vitamins Medications: Changed From lisinopril 5 mg PO DAILY 90 tabs 2RF To lisinopril 10 mg PO DAILY Coding Level of Care Code Est Pt Level 4 (68617) Diagnoses Diabetes mellitus E11.42; Z79.4 Diabetes mellitus type: type 2 Diabetes mellitus [facility] insulin use: with [employer] use Diabetes mellitus complication status: with neurologic complications Diabetes mellitus complication detail: with polyneuropathy Pure hypercholesterolemia E78.00 Benign essential hypertension I10 Degenerative joint disease of right shoulder M19.011 Osteoarthritis type: primary Spondylolisthesis, lumbar region M43.16 Asthma J45.20 Asthma severity: mild Asthma persistence: intermittent Asthma complication type: uncomplicated Chronic constipation K59.09 Gastroparesis K31.84 GERD (gastroesophageal reflux disease) K21.9 Esophagitis presence: without esophagitis Periodic limb movement disorder G47.61 Anxiety F41.9 Depression F33.9 Depression Type: major depressive disorder Major depression recurrence: recurrent Active/Remission status: currently active Major depression episode severity: unspecified Morbid obesity with BMI of 50.0-59.9, adult E66.01; Z68.43
[2023-01-19 10:49] VITALS: BP 124/78; PULSE 102; O2SAT 94; BMI 51.0
== END 2023-01-19 11:20 | disposition home or self-care (01) ==
PROVIDERS: Visit Provider Internal Medicine
DX: E11.42 Type 2 diabetes mellitus with diabetic polyneuropathy (principal); Z79.4 Long term (current) use of insulin; I10 Essential (primary) hypertension; F41.9 Anxiety disorder, unspecified; J45.20 Mild intermittent asthma, uncomplicated; K21.9 Gastro-esophageal reflux disease without esophagitis; F33.9 Major depressive disorder, recurrent, unspecified; E66.01 Morbid (severe) obesity due to excess calories; Z68.43 Body mass index [BMI] 50.0-59.9, adult; E78.00 Pure hypercholesterolemia, unspecified; M19.011 Primary osteoarthritis, right shoulder; M43.16 Spondylolisthesis, lumbar region
CPT/HCPCS: 99214

== ENCOUNTER 2023-03-27 08:49 | Outpatient (REF) | payer OTHER, SELFPAY ==
[2023-03-27 09:16] LABS: MANUAL DIFF FLAG NO
[2023-03-27 09:58] LABS: Basophils Absolute Auto 0.1 X10*3/uL (0.0-0.2); Basophils Percent Auto 0.6 % (0-2); Eosinophils Absolute Auto 0.5 X10*3/uL (0.0-0.4); Eosinophils Percent Auto 4.7 % (0-4); Hematocrit 42.7 % (37.0-47.0); Hemoglobin 13.8 g/dl (12.0-16.0); Imm Gran Abs Auto 0.05 X10*3/uL (0.00-0.03); Imm Gran Pct Auto 0.5 % (0.0-0.4); Lymphocytes Absolute Auto 2.7 X10*3/uL (1.2-4.9); Lymphocytes Percent Auto 25.3 % (20-40); Mean Corpuscular HGB Conc 32.3 g/dl (31.0-35.0); Mean Corpuscular Hemoglobin 28.2 pg (27.0-33.0); Mean Corpuscular Volume 87.3 fL (80.0-98.0); Mean Platelet Volume 10.9 fL (9.4-12.3); Monocytes Absolute Auto 0.6 X10*3/uL (0.1-1.2); Monocytes Percent Auto 5.8 % (2-11); Neutrophils Absolute Auto 6.7 x10*3/uL (2.0-8.3); Neutrophils Percent Auto 63.1 % (45-73); Platelet Count 306 X10*3/uL (160-400); Red Blood Count 4.89 X10*6/uL (4.20-5.50); Red Cell Distribution Width 13.4 % (11.0-16.0); White Blood Count 10.5 X10*3/uL (4.8-10.8)
[2023-03-27 10:40] LABS: Alanine Aminotransferase 37 U/L (0-31); Alkaline Phosphatase 92 U/L (39-117); Anion Gap 14 (12-20); Aspartate Amino Transferase 24 U/L (5-31); Bilirubin Total 0.8 mg/dL (0.0-1.0); Blood Urea Nitrogen 21 mg/dL (9-16); Calcium 10.2 mg/dL (8.4-10.2); Carbon Dioxide 24 mmol/L (22-29); Chloride 101 mmol/L (96-108); Cholesterol 102 mg/dL (<200); Estimated Glomerular Filt Rate 54; Glucose Fasting 277 mg/dL (60-99); HDL Cholesterol 31 mg/dL (>40); LDL Cholesterol Calculated 50 mg/dL (<100); Potassium 4.2 mmol/L (3.3-5.1); Sodium 135 mmol/L (135-145); Total Protein 7.9 g/dL (6.5-8.0); Triglycerides 105 mg/dL (<150)
[2023-03-27 10:58] LABS: Estimated Average Glucose 203 mg/dL; Hemoglobin A1c % 8.7 % (<6.0); TSH reflex Free T4 2.53 uIU/mL (0.32-4.0); Vitamin D 25-OH Total 20.7 ng/mL (>30)
[2023-03-27 11:06] LABS: Folate 10.1 ng/mL (> or = 4.0); Vitamin B12 499 pg/mL (200-900)
== END 2023-03-27 08:50 | disposition home or self-care (01) ==
LOC: HO.LAB 08:49
PROVIDERS: PCP Internal Medicine; Visit Provider Internal Medicine
DX: I10 Essential (primary) hypertension (principal); E78.00 Pure hypercholesterolemia, unspecified; E11.9 Type 2 diabetes mellitus without complications; E55.9 Vitamin D deficiency, unspecified; R30.0 Dysuria
CPT/HCPCS: 36415; 80053; 80061; 82306; 82607; 82746; 83036; 84443; 85025

== ENCOUNTER 2023-03-27 09:26 | Outpatient (AMB) | payer OTHER, SELFPAY ==
[2023-03-27 09:45] VITALS: BP 130/92; PULSE 74; O2SAT 93; BMI 50.3
--- NOTE | 2023-03-27 09:45 | A.OFFPC_ITS ---
Vital Signs 03/27/23 09:45 Height 5 ft 4 in Weight 293 lb BMI 50.3 BP 130/92 H Blood Pressure Location Lt brachial Position Sitting Pulse 74 Pulse Source Pulse Oximeter Pulse Oximetry (%) 93 Oxygen Delivery Method Room Air Intake Visit Reasons: 2mth f/u Allergies adhesive tape Allergy (Intermediate, Verified 03/27/23 10:54) Rash empagliflozin [From JARDIANCE] Allergy (Intermediate, Verified 03/27/23 10:54) Rash sitagliptin [From JANUVIA] Adverse Reaction (Severe, Verified 03/27/23 10:54) Rash,nausea, hypoglycemia metformin [METFORMIN] Adverse Reaction (Intermediate, Verified 03/27/23 10:54) Rash, GI upset Medication List - Last Reconciled 03/27/23 by Bi Dennis MD [ABSORBANT HEAVY PADS As directed] albuterol sulfate 90 mcg/actuation (ProAir HFA) 2 puffs inhalation Q4-6H PRN 30 days atorvastatin 40 mg PO BEDTIME 90 days budesonide-formoterol 160-4.5 mcg/actuation (Symbicort) 2 puffs inhalation BID clotrimazole-betamethasone 1-0.05 % 1 appl topical BID 2 weeks [DISPOSABLE WIPES As directed] dulaglutide (Trulicity) 4.5 mg subcut QWEEK fluticasone propionate 50 mcg/actuation 1 spray intranasal DAILY glipizide ER 10 mg PO BID insulin regular hum U-500 conc 190 units subcut BID lisinopril 10 mg PO DAILY lorazepam 0.5 mg PO TID PRN 30 days lubiprostone 8 mcg PO BID meloxicam 15 mg PO DAILY PRN 30 days metoclopramide HCl 10 mg PO TID PRN omeprazole 20 mg PO BID 60 days oxycodone 5 mg PO Q6-8H PRN 7 days peg 3350-electrolytes 236-22.74-6.74 -5.86 gram 240 mL PO Q10M pramipexole 1 mg PO TID 30 days spironolactone 100 mg PO BID 30 days tramadol Take 1 to 2 tablets orlly twice a day as needed for pain PRN; 25 days Tobacco use date assessed: 01/19/23 Dental Screening Dental Screen Date: 03/27/23 Did you have a dental visit in the last 12 months?: Yes Did you have a dental problem in the last 6 months where you did not have access to dental care?: No Was dental information given to patient?: Patient has dentist HPI 2mth f/u HPI Details Patient comes in today for her follow up visit States that she still has increased pain (chronic) over her lower back Was seeing pain management over at [facility] but states that she backed out of her surgery wherein she would have a spinal cord implant a few months ago as she was too scared of the potential side effects of the implant if the device did not work out States that she is resigned to the fact that she will have to live with chronic low back pain for the rest of her life States that she still has on and off chest pains but had some stress testing done at [facility] recently and she was reportedly advised that all of her tests came back normal She denies any headaches or dizziness Still has on and off SOB - states that she still has not yet received her CPAP device and that Dr. Olmos is still working on trying to get her the device so she can start using it right away Notes that her asthma seems to be controlled lately No nausea/vomiting, no abdominal pain No change in bowel habits noted States that her legs and feet have been swelling on and off lately; also (+) frequent leg pain, especially when she is walking and moving around Had her follow up labs done earlier today - to discuss her results Would also like to get her flu shot today [facility] Medical History Degenerative joint disease of right shoulder Restrictive lung disease MATILDA (obstructive sleep apnea) Asthma COPD (chronic obstructive pulmonary disease) Blood dyscrasia Superficial bruising of lower leg Pain and swelling of right lower extremity Morbid obesity with BMI of 50.0-59.9, adult Pure hypercholesterolemia Fatigue Diabetes mellitus Pedal edema Nausea and vomiting Abdominal pain Atypical chest pain On beta kelsey at home Dyspnea on effort Asthma Sleep apnea with use of continuous positive airway pressure (CPAP) HTN (hypertension) Liver cirrhosis Pars defect of lumbar spine Spondylolisthesis, lumbar region Postlaminectomy syndrome, lumbar Spondylosis of lumbar spine Rectal bleeding Fatty pancreas Chronic constipation Cirrhosis of liver without ascites Body mass index [BMI] 50.0-59.9, adult Morbid (severe) obesity due to excess calories Depression Anxiety Insomnia Obstructive sleep apnea Periodic limb movement disorder Neuropathic pain of both feet GERD (gastroesophageal reflux disease) Gastroparesis Lumbar degenerative disc disease Benign essential hypertension Dyslipidemia Diastolic dysfunction Type 2 diabetes mellitus with diabetic autonomic (poly)neuropathy Surgical History H/O colonoscopy History of surgery History of esophagogastroduodenoscopy (EGD) H/O cardiac catheterization (~12/14/17) H/O section History of laryngoscopy (~02/10/19) History of ventral hernia repair (~2008) History of appendectomy History of lumbar discectomy Family History Father Diabetes mellitus Hypertension Mother Diabetes mellitus Hypertension Uterine cancer History of heart attack Social History Housing: Apartment Are you a primary director career services to a significant other at home: No Do you presently have visiting nurse or other home services: Yes (Home Health Aide, VNA) Alcohol intake: never Patient Tobacco Use Status: Former Tobacco user Quit Date: 2005 Tobacco use type: Cigarette Years Smoked: 10 e-Cigarette/Vaping Use: Never Used Second Hand Smoke Exposure: No service: No Current occupational status: disabled Cognitive needs: No Hearing needs: No Vision needs: Yes Questionnaire PHQ-9 Over the last 2 weeks, how often have you been bothered by any of the following problems? 1. Little interest or pleasure in doing things: several days 2. Feeling down, depressed, or hopeless: several days 3. Trouble falling or staying asleep, or sleeping too much: several days 4. Feeling tired or having little energy: several days 5. Poor appetite or overeating: several days 6. Feeling bad about yourself - or that you are a failure or have let yourself or your family down: not at all 7. Trouble concentrating on things, such as reading the newspaper or watching television: not at all 8. Moving or speaking so slowly that other people could have noticed. Or the opposite - being so fidgety or restless that you have been moving around a lot more than usual: not at all 9. Thoughts that you would be better off or of hurting yourself in some way: not at all Total score: 5 Depression Screening Interpretation: Positive Depression Screening Follow-up: Existing condition and In treatment Depression Screening Done: Yes 61119 - PHQ-9 Billing: Yes Source: Developed by Drs. Tim Manning, Estephanie Newell, Lawrence Moreno and colleagues, with an educational amira from [employer]. Thrive Questionnaire Date Thrive assessed: 01/19/23 AUDIT C Alcohol Use Questionnaire (AUDIT-C) 1. How often do you have a drink containing alcohol?: Never 3. How often do you have six or more drinks on one occasion?: Never Total Score: 0 Score Reviewed/Action Taken: Yes CEDRIC-7 AMB Questionnaire CEDRIC-7 Date CEDRIC - 7 assessed: 01/19/23 Source: Developed by Drs. Tim Manning, Estephanie Newell, Lawrence Moreno and colleagues, with an educational amira from [employer]. Review of Systems Const Denies chills, Reports fatigue, Denies fever(s) and Denies headache(s) ENT Denies dysphagia, Denies dizziness, Denies otalgia, Denies headache(s), Denies neck pain, Denies odynophagia and Denies sore throat Card Denies chest pain, Denies palpitations and Reports dyspnea on exertion Resp Denies cough and Reports dyspnea on exertion GI Denies abdominal pain, Denies constipation, Denies dysphagia, Denies heartburn, Denies diarrhea, Denies nausea, Denies odynophagia and Denies vomiting Denies difficulty voiding, Denies nocturia and Denies dysuria Musc Details: (+) recurrent bilateral leg pain, especially with prolonged walking Reports back pain (over the lower back - chronic), Reports arthralgias (increased over the right shoulder lately) and Denies neck pain Neuro Denies dizziness and Denies headache(s) Endo Reports fatigue and Denies palpitations Physical exam (Primary Care) Vital Signs: Last Vital Signs Pulse 74 03/27/23 09:45 BP 130/92 H 03/27/23 09:45 Pulse Ox 93 03/27/23 09:45 Oxygen Delivery Method Room Air 03/27/23 09:45 BMI result Body Mass Index 50.3 Tobacco/Smoking Status: Tobacco use Status Tobacco use date assessed 01/19/23 03/27/23 09:46 Patient Tobacco Use Status Former Tobacco user 03/27/23 09:46 Tobacco use type Cigarette 03/27/23 09:46 e-Cigarette/Vaping Use Never Used 03/27/23 09:46 PHQ-9: PHQ-9 Score PHQ-9: Total score 5 03/27/23 11:04 Depression Screening Interpretation: Positive Depression Screening Follow-up: Existing condition and In treatment Thrive Assessment: Date of Thrive Assessment Date Thrive assessed 01/19/23 03/27/23 09:46 Const General: no acute distress and alert HENMT Ears: TM's normal bilaterally and EAC's normal Throat: Yes posterior oropharynx normal and Yes tonsils normal (no TP congestion noted) Neck Neck: Yes no lymphadenopathy and Yes supple Resp Auscultation: clear to auscultation bilaterally, no rales and no wheezes Cardio Rate: regular rate Rhythm: regular rhythm Heart sounds: no murmurs GI Palpation (GI): Soft to palpation and nontender Auscultation: normal bowel sounds Back/Spine/Pelvis Thoracic/Lumbar Spine: lumbar spinal tenderness Skin Rashes: no rashes Extrem General: Yes no clubbing, cyanosis or edema Right upper extremity: shoulder/upper arm Details: tenderness Location: of the A-C joint and abnormal ROM (ROM limited due to pain) Office Procedures Flu Questionnaire Does the patient have a severe egg allergy?: No Does the patient have severe life threatening allergies?: No Does the patient have a fever or illness today?: No Has the patient ever had Guillain-[place] Syndrome?: No Has the patient ever had any past reaction to a flu shot?: No Results AMB Hemoglobin A1c AMB Hemoglobin A1c 8.9 % Last Edit by Altagracia Flores CMA on 03/27/23 10 :09 Immunizations flu vacc [id number] 6mos up(PF) 60 mcg(15 mcgx4)/0.5 mL IM syringe Performing Provider: Bi Dennis MD Performing Location: [facility] [place] [facility] Administered by: Altagracia Flores CMA on 03/27/23 11:04 Dose Route Admin Location Dispensed Lot Number Expiration Date NDC Ladies Underwear Operator 0.5 mL IM Left Deltoid 0.5 mL [id number] 11/18/23 51637-865-89 [email or web address] VIS Given Date VIS Provided VIS Publication Date 03/27/23 Single Vaccine 20 Eligibility Eligibility Date Funding Source Not VF Eligible 03/27/23 Private Results Reviewed Results Reviewed: Laboratory Last Values Hgb A1c (Clinic) 8.9 % (4.0-6.0) H 03/27/23 09:47 Assessment and Plan Assessment & Plan (1) Diabetes mellitus: Comment: Out of control in the past. Has since been more compliant with medication with better control. BS today 171 Code(s): E11.9 - Type 2 diabetes mellitus without complications Qualifiers: Diabetes mellitus complication detail: with polyneuropathy Diabetes mellitus complication status: with neurologic complications Diabetes mellitus rat exterminator insulin use: with skilled nursing use Diabetes mellitus type: type 2 Qualified Code(s): E11.42 - Type 2 diabetes mellitus with diabetic polyneuropathy; Z79.4 - exterminator helper (current) use of insulin Plan: In-office HgbA1c done today is at 8.9% and 8.7% on her labs done earlier today (HgbA1c was previously at 10.0%, 11.7% and 13.2%) - goal is <7.0% but she was advised to get it to at least 8.0% before orthopedics will consider scheduling her for right shoulder surgery Reinforced diabetic diet Continue Trulicity 4.5 mg SQ once a week and Humulin U-500 190 units BID with breakfast and with dinner Continue Glipizide ER 10 mg BID Follow-up with [facility] Endocrinology scheduled Have advised patient previously that an insulin pump may be the best option for her at this time - she should be discussing this further with endocrinology (2) Pure hypercholesterolemia: Code(s): E78.00 - Pure hypercholesterolemia, unspecified Plan: Results of her labs done earlier today reviewed and discussed with patient Reinforced low cholesterol diet Continue Atorvastatin 40 mg QD Will recheck her labs and fasting lipids in 3 months for follow up (3) Benign essential hypertension: Code(s): I10 - Essential (primary) hypertension Plan: Reinforced low sodium diet - goal is systolic BP of 120 mm or less Continue Lisinopril 10 mg QD and Spironolactone 100 mg BID (4) Degenerative joint disease of right shoulder: Code(s): M19.011 - Primary osteoarthritis, right shoulder Qualifiers: Osteoarthritis type: primary Qualified Code(s): M19.011 - Primary osteoarthritis, right shoulder Plan: Recent right shoulder MRI revealed (+) high-grade, near full-thickness, partial bursal tear of the supraspinatus tendon with tendinopathies as well as osteoarthritis changes She was advised surgical repair by [facility] but they cannot do her surgery until her diabetes is better controlled and her HgbA1c is down to 8.0% or less Follow up with [facility] as scheduled (5) Spondylolisthesis, lumbar region: Comment: Nevro spinal cord stimulator trial was very effective to treat her pain she reports 90% of the pain relief. She reports up to 100 pain relieve when she is at rest. She reports no pain when she is in the situations when iron her pain was previously bothering her a lot. I will schedule her for implantation of spinal cord stimulator. Another consideration for the Nevro machine is this pat ient has obstructive sleep apnea and it is very difficult to achieve sedation for wake up during the surgery. With Nevro machine the insertion of the spinal cord stimulator not require awareness in the middle of the case. Code(s): M43.16 - Spondylolisthesis, lumbar region Plan: Has POSTLAMINECTOMY SYNDROME She has responded very well to trial of SCS in the past and was originally scheduled for SCS insertion with Dr. Mckeon under local/epidural anesthesia on 07/10/2022 but procedure was postponed until patient can get her diabetes under better control but patient recently decided she would rather not have the procedure done due to concerns about potential failure/side effects Continue Oxycodone 5 mg Q 6 hours PRN (6) Asthma: Comment: Pulmonary function test in 2018 was normal. But she has had clinical picture of mild intermittent bronchial asthma. And has been using Symbicort but does not like the taste TX: See under COPD. Wixela 250-50 one inh bid is added Code(s): J45.909 - Unspecified asthma, uncomplicated Qualifiers: Asthma complication type: uncomplicated Asthma persistence: intermittent Asthma severity: mild Qualified Code(s): J45.20 - Mild intermittent asthma, uncomplicated Plan: Stable - continue Symbicort 160-4.5 mg 1 inhalation BID and Albuterol HFA 2 puffs 4 times a day as needed Follow up with pulmonary (Dr. Olmos) as scheduled (7) Leg pain, bilateral: Code(s): M79.604 - Pain in right leg; M79.605 - Pain in left leg Plan: Will send patient for arterial studies of the lower extremities bilaterally for further evaluation - r/o PAD (8) Chronic constipation: Comment: Continue Senna and Lubiprotone Code(s): K59.09 - Other constipation Plan: Reinforced increased oral fluids and dietary fiber Continue Amitiza 8 mcg BID and Senna 8.6 mg PRN - states that her constipation has been better controlled since she was started on Amitiza by Dr. Redding a few months ago Follow up with GI as scheduled (9) Gastroparesis: Code(s): K31.84 - Gastroparesis Plan: Continue Metoclopramide 10 mg TID PRN Follow up with GI as scheduled (10) GERD (gastroesophageal reflux disease): Comment: Upper GI series done in 2019 came out normal Code(s): K21.9 - Gastro-esophageal reflux disease without esophagitis Qualifiers: Esophagitis presence: without esophagitis Qualified Code(s): K21.9 - Gastro-esophageal reflux disease without esophagitis Plan: Dietary restrictions reinforced Advised that her symptoms may actually be due to her gastroparesis rather than actual refkux disease Continue Omeprazole 20 mg BID (11) Periodic limb movement disorder: Code(s): G47.61 - Periodic limb movement disorder Plan: Continue Pramipexole 1 mg TID (12) Anxiety: Code(s): F41.9 - Anxiety disorder, unspecified Plan: Continue Lorazepam 0.5 mg TID PRN (13) Depression: Code(s): F32.9 - Major depressive disorder, single episode, unspecified Qualifiers: Active/Remission status: currently active Depression Type: major depressive disorder Major depression episode severity: unspecified Major depression recurrence: recurrent Qualified Code(s): F33.9 - Major depressive disorder, recurrent, unspecified Plan: Continue Citalopram 10 mg QD Follow-up with Psychiatry as scheduled (14) Morbid obesity with BMI of 50.0-59.9, adult: Comment: Patient i her weight and she is trying to reduce s being followed by Endocrinology service, She is on low carbs diet, and Dulaglutide once a week , trying to reduce her weight. Code(s): E66.01 - Morbid (severe) obesity due to excess calories; Z68.43 - Body mass index [BMI] 50.0-59.9, adult Plan: Reinforced diet; exercise and weight loss are unrealistic given patient's m ultiple physical issues and comorbidities and poor activity tolerance Plan Flu vaccine given today Follow up in 3 months Orders: Orders AMB Hemoglobin A1c 03/27/23 Z13.9 - Encounter for screening, unspecified US arterial duplex LE BI 03/27/23 M79.604 - Pain in right leg, M79.605 - Pain in left leg, R60.0 - Localized edema Microalbumin, Random (w Creat) 3 Months E11.9 - Type 2 diabetes mellitus without complications Hemoglobin A1c 3 Months E11.9 - Type 2 diabetes mellitus without complications Vitamin B12 and Folate 3 Months E53.8 - Deficiency of other specified B group vitamins Influenza [id number] Immunization 03/27/23 Z23 - Encounter for immunization Comprehensive [place]. Panel Fast 3 Months E78.00 - Pure hypercholesterolemia, unspecified Lipid Panel 3 Months E78.00 - Pure hypercholesterolemia, unspecified TSH reflex Free T4 3 Months E78.00 - Pure hypercholesterolemia, unspecified UA CC w/rflx Micro + Cult 3 Months R30.0 - Dysuria Vitamin D 25-OH Total 3 Months E55.9 - Vitamin D deficiency, unspecified Coding Level of Care Code Est Pt Level 4 (60376) Diagnoses Type 2 diabetes mellitus with diabetic polyneuropathy, with long-term current use of insulin E11.42; Z79.4 Diabetes mellitus complication detail: with polyneuropathy Diabetes mellitus complication status: with neurologic complications Diabetes mellitus rat exterminator insulin use: with rat exterminator use Diabetes mellitus type: type 2 Pure hypercholesterolemia E78.00 Benign essential hypertension I10 Primary osteoarthritis of right shoulder M19.011 Osteoarthritis type: primary Spondylolisthesis, lumbar region M43.16 Mild intermittent asthma without complication J45.20 Asthma complication type: uncomplicated Asthma persistence: intermittent Asthma severity: mild Leg pain, bilateral M79.604; M79.605 Chronic constipation K59.09 Gastroparesis K31.84 Gastroesophageal reflux disease without esophagitis K21.9 Esophagitis presence: without esophagitis Periodic limb movement disorder G47.61 Anxiety F41.9 Episode of recurrent major depressive disorder, unspecified depression episode severity F33.9 Active/Remission status: currently active Depression Type: major depressive disorder Major depression episode severity: unspecified Major depression recurrence: recurrent Morbid obesity with BMI of 50.0-59.9, adult E66.01; Z68.43
== END 2023-03-27 11:03 | disposition home or self-care (01) ==
PROVIDERS: PCP Internal Medicine; Visit Provider Internal Medicine
DX: E11.9 Type 2 diabetes mellitus without complications (principal); Z23 Encounter for immunization
CPT/HCPCS: 83036; 90471; 90686; 99214

== ENCOUNTER 2023-04-18 14:06 | Outpatient (REF) | payer OTHER, SELFPAY ==
--- NOTE | ~2023-04-18 | US_ITS ---
EXAMINATION: NONINVASIVE ASSESSMENT OF THE ARTERIES OF BOTH LOWER EXTREMITIES INCLUDING BILATERAL LOWER EXTREMITY DUPLEX. CLINICAL INFORMATION: Pain in the right leg, smoking history COMPARISON: None TECHNIQUE: duplex Doppler techniques with wave form analysis and measurement of velocities in the common femoral, profunda femoral, superficial femoral, popliteal, tibial and peroneal arteries. The study was performed only at rest. FINDINGS: Mild calcific atherosclerotic disease bilaterally. RIGHT LEG Common femoral artery: 103 cm/s, Multiphasic Profunda femoris artery: 58 cm/s, Multiphasic Superficial femoral artery (proximal): 129 cm/s, Multiphasic Superficial femoral artery (mid): 91 cm/s, Multiphasic Superficial femoral artery (distal): 79 cm/s, Multiphasic Proximal Popliteal artery: 94 cm/s, Multiphasic Mid posterior tibial artery: 84 cm/s, Multiphasic LEFT LEG: Common femoral artery: 90 cm/s, Multiphasic Profunda femoris artery: 50 cm/s, Multiphasic Superficial femoral artery (proximal): 111 cm/s, Multiphasic Superficial femoral artery (mid): 85 cm/s, Multiphasic Superficial femoral artery (distal): 75 cm/s, Multiphasic Proximal Popliteal artery: 104 cm/s, Multiphasic Mid posterior tibial artery: 100 cm/s, Multiphasic US/US arterial duplex LE BI IMPRESSION: Mild calcific atherosclerotic disease bilaterally, however no hemodynamically significant stenosis in the bilateral lower extremities.
== END 2023-04-18 14:07 | disposition home or self-care (01) ==
LOC: HO.US 14:06
PROVIDERS: PCP Internal Medicine; Visit Provider Internal Medicine
DX: R60.0 Localized edema (principal); M79.604 Pain in right leg; M79.605 Pain in left leg
CPT/HCPCS: 93925

== ENCOUNTER 2023-09-26 08:07 | Outpatient (REF) | payer OTHER, SELFPAY ==
[2023-09-26 10:06] LABS: TSH reflex Free T4 2.34 uIU/mL (0.32-4.0); Vitamin D 25-OH Total 17.9 ng/mL (>30)
[2023-09-26 11:05] LABS: Folate 8.4 ng/mL (> or = 4.0); Vitamin B12 441 pg/mL (200-900)
== END 2023-09-26 08:08 | disposition home or self-care (01) ==
LOC: HO.LAB 08:07
PROVIDERS: Absent Provider Registered Nurse; PCP Internal Medicine; Visit Provider Internal Medicine
DX: E78.00 Pure hypercholesterolemia, unspecified (principal); E55.9 Vitamin D deficiency, unspecified
CPT/HCPCS: 36415; 82306; 82607; 82746; 84443

== ENCOUNTER 2023-09-26 09:37 | Outpatient (AMB) | payer OTHER, SELFPAY ==
[2023-09-26 09:37] VITALS: BP 114/72; PULSE 93; O2SAT 94; BMI 51.8
--- NOTE | 2023-09-26 09:37 | A.OFFPC_ITS ---
Vital Signs 09/26/23 09:37 Height 5 ft 4 in Weight 302 lb 0.8 oz BMI 51.8 BP 114/72 Blood Pressure Location Lt brachial Position Sitting Pulse 93 Pulse Source Pulse Oximeter Pulse Oximetry (%) 94 Oxygen Delivery Method Room Air Intake Visit Reasons: 3mth f/u- see comments Intake Note: Patient is here to follow up on 3 months. A1C 13.5% Dobby Looms Pegger Required: No Allergies adhesive tape Allergy (Intermediate, Verified 09/26/23 10:20) Rash empagliflozin [From JARDIANCE] Allergy (Intermediate, Verified 09/26/23 10:20) Rash sitagliptin [From JANUVIA] Adverse Reaction (Severe, Verified 09/26/23 10:20) Rash,nausea, hypoglycemia metformin [METFORMIN] Adverse Reaction (Intermediate, Verified 09/26/23 10:20) Rash, GI upset Medication List - Last Reconciled 09/26/23 by Bi Dennis MD [ABSORBANT HEAVY PADS As directed] albuterol sulfate 90 mcg/actuation (ProAir HFA) 2 puffs inhalation Q4-6H PRN 30 days atorvastatin 40 mg PO BEDTIME 90 days budesonide-formoterol 160-4.5 mcg/actuation (Symbicort) 2 puffs inhalation BID buspirone 5 mg PO BID cholecalciferol (vitamin D3) 50 mcg PO DAILY 90 days clotrimazole-betamethasone 1-0.05 % 1 appl topical BID 2 weeks [DISPOSABLE WIPES As directed] dulaglutide (Trulicity) 4.5 mg subcut QWEEK fluoxetine 10 mg PO DAILY fluticasone propionate 50 mcg/actuation 1 spray intranasal DAILY glipizide ER 10 mg PO BID insulin regular hum U-500 conc 200 units in AM, 150 units at lunchtime and 150 units at dinnertime subcutaneously; lisinopril 10 mg PO DAILY lorazepam 0.5 mg PO TID PRN 30 days lubiprostone 8 mcg PO BID 30 days meloxicam 15 mg PO DAILY PRN 30 days metoclopramide HCl 10 mg PO TID PRN omeprazole 20 mg PO BID 30 days oxycodone 5 mg PO Q6-8H PRN 7 days peg 3350-electrolytes 236-22.74-6.74 -5.86 gram 240 mL PO Q10M pramipexole 1 mg PO TID 30 days spironolactone 100 mg PO BID 30 days tramadol Take 1 to 2 tablets orlly twice a day as needed for pain PRN; 25 days Tobacco use date assessed: 09/26/23 Dental Screening Dental Screen Date: 09/26/23 HPI 3mth f/u- see comments HPI Details Patient comes in today for her follow up visit Relates experiencing increased fatigue over the past few weeks Was reportedly seen at [facility] yesterday and states that her HgbA1c was at 13.5% when checked in the office States that the associate director qa increased her Humalog to 200 units in AM, 150 units at lunch and 150 units at dinner She also continues on Glipizide ER 10 mg QD and Trulicity 4.5 mg SQ weekly Patient also reports experiencing SOB frequently and feels that this has increased recently with her weight gain States that both of her feet have also been swollen over the past week or so States that she has not been able to lie down flat on her back for a few years now but thinks that this has more to do with her chronic low back pain, which is still bothering her a lot She continues to follow up with pain management for her back pains but has been advised that until she can get her diabetes controlled better, there is not much they can do in terms of interventional Tx She denies any headaches or dizziness Denies any chest pains No nausea/vomiting, no abdominal pain No change in bowel habits noted States that she had some labs done earlier this morning but is not sure which ones were done [facility] Medical History (Updated 09/26/23 @ 12:43 by Bi Dennis MD) Vitamin D deficiency Degenerative joint disease of right shoulder Restrictive lung disease MATILDA (obstructive sleep apnea) Asthma COPD (chronic obstructive pulmonary disease) Blood dyscrasia Superficial bruising of lower leg Pain and swelling of right lower extremity Morbid obesity with BMI of 50.0-59.9, adult Pure hypercholesterolemia Fatigue Diabetes mellitus Pedal edema Nausea and vomiting Abdominal pain Atypical chest pain On beta kelsey at home Dyspnea on effort Asthma Sleep apnea with use of continuous positive airway pressure (CPAP) HTN (hypertension) Liver cirrhosis Pars defect of lumbar spine Spondylolisthesis, lumbar region Postlaminectomy syndrome, lumbar Spondylosis of lumbar spine Rectal bleeding Fatty pancreas Chronic constipation Cirrhosis of liver without ascites Body mass index [BMI] 50.0-59.9, adult Morbid (severe) obesity due to excess calories Depression Anxiety Insomnia Obstructive sleep apnea Periodic limb movement disorder Neuropathic pain of both feet GERD (gastroesophageal reflux disease) Gastroparesis Lumbar degenerative disc disease Benign essential hypertension Dyslipidemia Diastolic dysfunction Type 2 diabetes mellitus with diabetic autonomic (poly)neuropathy Surgical History H/O colonoscopy History of surgery History of esophagogastroduodenoscopy (EGD) H/O cardiac catheterization (~12/14/17) H/O section History of laryngoscopy (~02/10/19) History of ventral hernia repair (~2008) History of appendectomy History of lumbar discectomy Family History Father Diabetes mellitus Hypertension Mother Diabetes mellitus Hypertension Uterine cancer History of heart attack Social History Housing: Apartment Are you a primary child care center assistant director to a significant other at home: No Do you presently have visiting nurse or other home services: Yes (Home Health Aide, VNA) Alcohol intake: never Patient Tobacco Use Status: Former Tobacco user Quit Date: 2005 Tobacco use type: Cigarette Years Smoked: 10 e-Cigarette/Vaping Use: Never Used Second Hand Smoke Exposure: No service: No Current occupational status: disabled Cognitive needs: No Hearing needs: No Vision needs: Yes Questionnaire PHQ-9 Over the last 2 weeks, how often have you been bothered by any of the following problems? 1. Little interest or pleasure in doing things: several days 2. Feeling down, depressed, or hopeless: several days 3. Trouble falling or staying asleep, or sleeping too much: several days 4. Feeling tired or having little energy: several days 5. Poor appetite or overeating: several days 6. Feeling bad about yourself - or that you are a failure or have let yourself or your family down: not at all 7. Trouble concentrating on things, such as reading the newspaper or watching television: not at all 8. Moving or speaking so slowly that other people could have noticed. Or the opposite - being so fidgety or restless that you have been moving around a lot more than usual: not at all 9. Thoughts that you would be better off or of hurting yourself in some way: not at all Total score: 5 Depression Screening Interpretation: Positive Depression Screening Follow-up: Existing condition and In treatment Depression Screening Done: Yes 16605 - PHQ-9 Billing: Yes Source: Developed by Drs. Tim Manning, Estephanie Newell, Lawrence Moreno and colleagues, with an educational amira from [employer]. Thrive Questionnaire Date Thrive assessed: 09/26/23 I am a: Patient What is your living situation today?: I have a steady place to live Within the past 12 months, did the food you bought not last and you didn't have the money to get more?: Never true Within the past 12 months, did you worry whether your food would run out before you got money to buy more?: Never true Do you have trouble paying for medicines?: No Do you have trouble getting transportation to medical appointments?: No Do you have trouble paying your heating and electricity bill?: No Do you have trouble taking care of your child, family member or friend?: No Do you have trouble with day-to-day activities such as bathing, preparing meals, shopping, managing finances, etc.?: No Are you currently unemployed and looking for a job?: No Are you interested in more education?: No Please select the resources that you would like help with: None Currently or been in a relationship where the following occur: no concerns reported THRIVE Score: 0 AUDIT C Alcohol Use Questionnaire (AUDIT-C) 1. How often do you have a drink containing alcohol?: Never 3. How often do you have six or more drinks on one occasion?: Never Total Score: 0 Score Reviewed/Action Taken: Yes CERDIC-7 AMB Questionnaire CEDRIC-7 Date CEDRIC - 7 assessed: 09/26/23 Feeling nervous, anxious, or on edge: 0 = Not at all Not being able to stop or control worryin = Not at all Worrying too much about different things: 0 = Not at all Trouble relaxin = Not at all Being so restless that it is hard to sit still: 0 = Not at all Becoming easily annoyed or irritable: 0 = Not at all Feeling afraid as if something awful might happen: 0 = Not at all Total CEDRIC-7 score (0-4 normal; 5-9 mild; 10-14 moderate; 15-21 severe): 0 Source: Developed by Drs. Tim Manning, Estephanie Newell, Lawrence Moreno and colleagues, with an educational amira from [employer]. CEDRIC-7 Assessment Billing CEDRIC-7 Assessment Tool: CEDRIC-7 Assessment 01593 Review of Systems Const Denies chills, Reports fatigue (increased lately), Denies fever(s) and Denies headache(s) ENT Denies dysphagia, Denies dizziness, Denies otalgia, Denies headache(s), Denies neck pain, Denies odynophagia and Denies sore throat Card Denies chest pain, Reports leg edema (bilateral), Denies palpitations and Reports dyspnea on exertion Resp Denies cough and Reports dyspnea on exertion GI Denies abdominal pain, Denies constipation, Denies dysphagia, Denies heartburn, Denies diarrhea, Denies nausea, Denies odynophagia and Denies vomiting Denies difficulty voiding, Reports nocturia, Denies dysuria and Denies urinary urgency Musc Details: (+) recurrent bilateral leg pain, especially with prolonged walking Reports back pain (over the lower back - chronic), Reports arthralgias (over the right shoulder) and Denies neck pain Skin/Breast Denies rash Neuro Denies dizziness and Denies headache(s) Endo Reports fatigue (increased lately) and Denies palpitations Physical exam (Primary Care) Vital Signs: Last Vital Signs Pulse 93 09/26/23 09:37 BP 114/72 09/26/23 09:37 Pulse Ox 94 09/26/23 09:37 Oxygen Delivery Method Room Air 09/26/23 09:37 BMI result Body Mass Index 51.8 Tobacco/Smoking Status: Tobacco use Status Tobacco use date assessed 09/26/23 09/26/23 09:39 Patient Tobacco Use Status Former Tobacco user 09/26/23 09:39 Tobacco use type Cigarette 09/26/23 09:39 e-Cigarette/Vaping Use Never Used 09/26/23 09:39 Depression Screening Interpretation: Positive Depression Screening Follow-up: Existing condition and In treatment Thrive Assessment: Date of Thrive Assessment Date Thrive assessed 09/26/23 09/26/23 09:39 Currently or been in a relationship where the following occur: no concerns reported Const General: no acute distress, alert and tired appearing HENMT Ears: TM's normal bilaterally and EAC's normal Throat: Yes posterior oropharynx normal and Yes tonsils normal (no TP congestion noted) Neck Neck: Yes no lymphadenopathy and Yes supple Thyroid: Thyroid normal Resp Auscultation: clear to auscultation bilaterally, no rales and no wheezes Cardio Rate: regular rate Rhythm: regular rhythm Heart sounds: no murmurs GI Palpation (GI): Soft to palpation and nontender Auscultation: normal bowel sounds General: Yes no CVA tenderness Back/Spine/Pelvis Back: no CVA tenderness Thoracic/Lumbar Spine: lumbar spinal tenderness Skin Rashes: no rashes Extrem General: No no calf tenderness, No cyanosis and Yes edema (2+ bilaterally) Right upper extremity: shoulder/upper arm Details: tenderness Location: of the A-C joint and abnormal ROM (ROM limited due to pain) Assessment and Plan Assessment & Plan (1) Diabetes mellitus: Comment: Out of control in the past. Has since been more compliant with medication with better control. BS today 171 Code(s): E11.9 - Type 2 diabetes mellitus without complications Qualifiers: Diabetes mellitus type: type 2 Diabetes mellitus termite exterminator insulin use: with termite exterminator use Diabetes mellitus complication status: with neurologic complications Diabetes mellitus complication detail: with polyneuropathy Qualified Code(s): E11.42 - Type 2 diabetes mellitus with diabetic polyneuropathy; Z79.4 - long-term (current) use of insulin Plan: Her HgbA1c was reportedly at 13.2% when checked at the office of [facility] yesterday (in-office HgbA1c was previously at 8.9% and 8.7% back in March 2023) - goal is <7.0% but she was advised to get it to at least 8.0% before orthopedics will consider scheduling her for right shoulder surgery Reinforced diabetic diet Continue Trulicity 4.5 mg SQ once a week and Glipizide ER 10 mg BID Her Humalog was increased to 200 units in AM, 150 units at lunch and 150 units at dinner by endocrinology yesterday Follow-up with [facility] scheduled Have advised patient previously that an insulin pump may be the best option for her at this time and she should be discussing this further with endocrinology (2) Pure hypercholesterolemia: Code(s): E78.00 - Pure hypercholesterolemia, unspecified Plan: Will have patient recheck her labs RAINA for follow up Reinforced low cholesterol diet Continue Atorvastatin 40 mg QD (3) Benign essential hypertension: Code(s): I10 - Essential (primary) hypertension Plan: Reinforced low sodium diet - goal is systolic BP of 120 mm or less Continue Lisinopril 10 mg QD and Spironolactone 100 mg BID (4) Edema of both lower extremities: Code(s): R60.0 - Localized edema Plan: Patient has been cautioned that her edema and recent weight gain may be cardiac and/or renal in etiology Will send her for some labs RAINA for further evaluation (5) Degenerative joint disease of right shoulder: Code(s): M19.011 - Primary osteoarthritis, right shoulder Qualifiers: Osteoarthritis type: primary Qualified Code(s): M19.011 - Primary osteoarthritis, right shoulder Plan: Recent right shoulder MRI revealed (+) high-grade, near full-thickness, partial bursal tear of the supraspinatus tendon with tendinopathies as well as o steoarthritis changes She was advised surgical repair by [facility] but they cannot do her surgery until her diabetes is better controlled and her HgbA1c is down to 8.0% or less Follow up with [facility] as scheduled (6) Spondylolisthesis, lumbar region: Comment: Nevro spinal cord stimulator trial was very effective to treat her pain she reports 90% of the pain relief. She reports up to 100 pain relieve when she is at rest. She reports no pain when she is in the situations when iron her pain was previously bothering her a lot. I will schedule her for implantation of spinal cord stimulator. Another consideration for the Nevro machine is this patient has obstructive sleep apnea and it is very difficult to achieve sedation for wake up during the surgery. With Nevro machine the insertion of the spinal cord stimulator not require awareness in the middle of the case. Code(s): M43.16 - Spondylolisthesis, lumbar region Plan: Has POSTLAMINECTOMY SYNDROME She has responded very well to trial of SCS in the past and was originally scheduled for SCS insertion with Dr. Mckeon under local/epidural anesthesia on 07/10/2022 but procedure was postponed until patient can get her diabetes under better control but patient recently decided she would rather not have the procedure done due to concerns about potential failure/side effects Continue Oxycodone 5 mg Q 6 hours PRN (7) Asthma: Comment: Pulmonary function test in 2018 was normal. But she has had clinical picture of mild intermittent bronchial asthma. And has been using Symbicort but does not like the taste TX: See under COPD. Wixela 250-50 one inh bid is added Code(s): J45.909 - Unspecified asthma, uncomplicated Qualifiers: Asthma severity: mild Asthma persistence: intermittent Asthma complication type: uncomplicated Qualified Code(s): J45.20 - Mild intermittent asthma, uncomplicated Plan: Stable - continue Symbicort 160-4.5 mg 1 inhalation BID and Albuterol HFA 2 puffs 4 times a day as needed Follow up with pulmonary (Dr. Olmos) as scheduled (8) Chronic constipation: Comment: Continue Senna and Lubiprotone Code(s): K59.09 - Other constipation Plan: Reinforced increased oral fluids and dietary fiber Continue Amitiza 8 mcg BID and Senna 8.6 mg PRN - states that her constipation has been better controlled since she was started on Amitiza by Dr. Redding last year Follow up with GI as scheduled (9) Gastroparesis: Code(s): K31.84 - Gastroparesis Plan: Continue Metoclopramide 10 mg TID PRN Follow up with GI as scheduled (10) GERD (gastroesophageal reflux disease): Comment: Upper GI series done in 2019 came out normal Code(s): K21.9 - Gastro-esophageal reflux disease without esophagitis Qualifiers: Esophagitis presence: without esophagitis Qualified Code(s): K21.9 - Gastro-esophageal reflux disease without esophagitis Plan: Dietary restrictions reinforced Advised that her symptoms may actually be due to her gastroparesis rather than actual reflux disease Continue Omeprazole 20 mg BID (11) Vitamin D deficiency: Code(s): E55.9 - Vitamin D deficiency, unspecified Plan: She is advised that her Vitamin D level is very low on her recent labs Will start her on Vitamin D3 2000 units QD (12) Periodic limb movement disorder: Code(s): G47.61 - Periodic limb movement disorder Plan: Continue Pramipexole 1 mg TID (13) Anxiety: Code(s): F41.9 - Anxiety disorder, unspecified Plan: Continue Lorazepam 0.5 mg TID PRN (14) Depression: Code(s): F32.9 - Major depressive disorder, single episode, unspecified Qualifiers: Depression Type: major depressive disorder Major depression recurrence: recurrent Active/Remission status: currently active Major depression episode severity: unspecified Qualified Code(s): F33.9 - Major depressive disorder, recurrent, unspecified Plan: Continue Citalopram 10 mg QD Follow-up with Psychiatry as scheduled (15) Morbid obesity with BMI of 50.0-59.9, adult: Comment: Patient i her weight and she is trying to reduce s being followed by Endocrinology service, She is on low carbs diet, and Dulaglutide once a week , trying to reduce her weight. Code(s): E66.01 - Morbid (severe) obesity due to excess calories; Z68.43 - Body mass index [BMI] 50.0-59.9, adult Plan: Reinforced diet; exercise and weight loss are unrealistic given patient's multiple physical issues and comorbidities and poor activity tolerance Plan Follow up in 3 months Orders: Orders B Type Natriuretic Peptide Today I50.9 - Heart failure, unspecified Complete Blood Count Auto Diff Today D64.9 - Anemia, unspecified Comprehensive Harris. Panel Fast Today E78.00 - Pure hypercholesterolemia, unspecified UA CC w/rflx Micro + Cult Today R30.0 - Dysuria Lipid Panel Today E78.00 - Pure hypercholesterolemia, unspecified Microalbumin, Random (w Creat) Today E11.9 - Type 2 diabetes mellitus without complications Medications: New cholecalciferol (vitamin D3) 50 mcg PO DAILY 90 days 90 caps 3RF E55.9 - Vitamin D deficiency, unspecified Coding Level of Care Code Est Pt Level 4 (26826) Diagnoses Type 2 diabetes mellitus with diabetic polyneuropathy, with long-term current use of insulin E11.42; Z79.4 Diabetes mellitus type: type 2 Diabetes mellitus termite exterminator insulin use: with termite exterminator use Diabetes mellitus complication status: with neurologic complications Diabetes mellitus complication detail: with polyneuropathy Pure hypercholesterolemia E78.00 Benign essential hypertension I10 Edema of both lower extremities R60.0 Primary osteoarthritis of right shoulder M19.011 Osteoarthritis type: primary Spondylolisthesis, lumbar region M43.16 Mild intermittent asthma without complication J45.20 Asthma severity: mild Asthma persistence: intermittent Asthma complication type: uncomplicated Chronic constipation K59.09 Gastroparesis K31.84 Gastroesophageal reflux disease without esophagitis K21.9 Esophagitis presence: without esophagitis Vitamin D deficiency E55.9 Periodic limb movement disorder G47.61 Anxiety F41.9 Episode of recurrent major depressive disorder, unspecified depression episode severity F33.9 Depression Type: major depressive disorder Major depression recurrence: recurrent Active/Remission status: currently active Major depression episode severity: unspecified Morbid obesity with BMI of 50.0-59.9, adult E66.01; Z68.43 Additional Codes CEDRIC-7 Assessment Billing - CEDRIC-7 Assessment Tool: CEDRIC-7 Assessment 55309 ([id number])
== END 2023-09-26 10:19 | disposition home or self-care (01) ==
PROVIDERS: PCP Internal Medicine; Visit Provider Internal Medicine
DX: E11.42 Type 2 diabetes mellitus with diabetic polyneuropathy (principal); Z79.4 Long term (current) use of insulin; E66.01 Morbid (severe) obesity due to excess calories; Z68.43 Body mass index [BMI] 50.0-59.9, adult; F33.9 Major depressive disorder, recurrent, unspecified; E78.00 Pure hypercholesterolemia, unspecified; I10 Essential (primary) hypertension; R60.0 Localized edema; M19.011 Primary osteoarthritis, right shoulder; M43.16 Spondylolisthesis, lumbar region; J45.20 Mild intermittent asthma, uncomplicated; K59.09 Other constipation
CPT/HCPCS: 99214

== ENCOUNTER 2023-10-09 07:53 | Outpatient (REF) | payer OTHER, SELFPAY ==
--- NOTE | ~2023-10-09 | MM_ITS ---
EXAMINATION: MM SCREENING DIGITAL BREAST TOMOSYNTHESIS, BILATERAL CLINICAL INFORMATION: Screening. Asymptomatic. COMPARISON: Mammography: 07/09/2018, 12/18/2016, 08/11/2014. TECHNIQUE: Digital breast tomosynthesis is performed in both the craniocaudal and mediolateral oblique views along with computer-aided detection (CAD). Synthesized 2D images are generated from the tomosynthesis. FINDINGS: The breasts are almost entirely fatty (ACR BI-RADS breast composition Category a). There are mild bilateral vascular calcifications. There are no suspicious masses, suspicious grouped calcifications, or areas of architectural distortion in either breast. The parenchymal pattern is stable from prior exams. No suspicious skin or axillary abnormality. MM/MM tomosynthesis screening BI IMPRESSION: No mammographic evidence of malignancy. No significant change. ASSESSMENT: BI-RADS BI-RADS 2 - Benign Findings RECOMMENDATION: Routine annual mammography screening. 1 year F/U This examination should not preclude the clinical evaluation of a suspicious palpable abnormality. This patient's information was entered into a reminder system with a target due date for their next mammogram.
== END 2023-10-09 07:54 | disposition home or self-care (01) ==
LOC: HO.MAMMO 07:53
PROVIDERS: PCP Internal Medicine; Visit Provider Internal Medicine
DX: Z12.31 Encounter for screening mammogram for malignant neoplasm of breast (principal)
CPT/HCPCS: 77063; 77067

== ENCOUNTER → 2023-10-09 08:00 | Outpatient (BNV) | payer OTHER, SELFPAY | PROVIDERS: PCP Internal Medicine; Visit Provider Radiology Diagnostic Radiology | DX: Z12.31 Encounter for screening mammogram for malignant neoplasm of breast (principal) | CPT/HCPCS: 77063; 77067 ==

== ENCOUNTER 2023-11-01 07:53 | Outpatient (AMB) | payer OTHER, SELFPAY ==
--- NOTE | 2023-11-01 07:58 | A.OFFVIS_ITS ---
Vital Signs 11/01/23 08:10 Height 5 ft 4 in Weight 291 lb BMI 49.9 BP 142/74 H Blood Pressure Location Lt brachial Position Sitting Pulse 92 Pulse Oximetry (%) 94 Oxygen Delivery Method Room Air Intake Visit Reasons: FU of GERD, constipation and cirrhosis Intake Note: Patient follow up for GERD, Constipation, and cirrhosis. Patient cc: Nauseas, abdominal pain with bloating and burning sensation, bloody stool, and some swallowing difficulty. Puppy Trainer Required: No Accompanied by: Self / Same As Patient Allergies adhesive tape Allergy (Intermediate, Verified 11/01/23 08:04) Rash empagliflozin [From JARDIANCE] Allergy (Intermediate, Verified 11/01/23 08:04) Rash sitagliptin [From JANUVIA] Adverse Reaction (Severe, Verified 11/01/23 08:04) Rash,nausea, hypoglycemia metformin [METFORMIN] Adverse Reaction (Intermediate, Verified 11/01/23 08:04) Rash, GI upset Medication List - Last Reconciled 11/01/23 by Annika Redding MD [ABSORBANT HEAVY PADS As directed] albuterol sulfate 90 mcg/actuation (ProAir HFA) 2 puffs inhalation Q4-6H PRN 30 days atorvastatin 40 mg PO BEDTIME 90 days budesonide-formoterol 160-4.5 mcg/actuation (Symbicort) 2 puffs inhalation BID buspirone 5 mg PO BID cholecalciferol (vitamin D3) 50 mcg PO DAILY 90 days clotrimazole-betamethasone 1-0.05 % 1 appl topical BID 2 weeks [DISPOSABLE WIPES As directed] dulaglutide (Trulicity) 4.5 mg subcut QWEEK fluoxetine 10 mg PO DAILY fluticasone propionate 50 mcg/actuation 1 spray intranasal DAILY glipizide ER 10 mg PO BID insulin regular hum U-500 conc 200 units in AM, 150 units at lunchtime and 150 units at dinnertime subcutaneously; lisinopril 10 mg PO DAILY lorazepam 0.5 mg PO TID PRN 30 days lubiprostone 8 mcg PO BID meloxicam 15 mg PO DAILY PRN 30 days metoclopramide HCl 10 mg PO TID PRN omeprazole 20 mg PO BID 30 days oxycodone 5 mg PO Q6-8H PRN 7 days peg 3350-electrolytes 236-22.74-6.74 -5.86 gram 240 mL PO Q10M pramipexole 1 mg PO TID 30 days spironolactone 100 mg PO BID 30 days tramadol Take 1 to 2 tablets orlly twice a day as needed for pain PRN; 25 days HPI HPI FU of GERD, constipation and cirrhosis: Details: GI CLINIC VISIT FOR THIS 53-YEAR-OLD FEMALE FOR FOLLOW-UP OF: ? 1. Gastroparesis - K31.84 (Primary) ? 2. Slow transit constipation - K59.01 ? 3. Hepatic steatosis - K76.0 ? 4. Past Hepatitis C infection ?LABS IN [facility]:?12/17/19 normal CBC 10/06/19 Reviewed - INR 1.1, normal LFTs, Liver Fibrosis score of 0.23, fibrosis stage F0-F1 ?IMAGING STUDIES: 07/2021 Abd US showed: 2 nonmobile echogenic polyps.?Mild hepatic steatosis with enlarged left hepatic lobe. No focal lesion seen. ABDOMINAL ULTRASOUND SHOWED:? 1. There is generalized increase in hepatic echotexture, consistent ? with fatty infiltration or hepatocellular disease. Please correlate ? clinically. Characteristic pericholecystic sparing favors fatty ? infiltration. No focal hepatic mass or intrahepatic biliary dilatation is seen. ? 2. 4 mm and 3 mm gallbladder polyps are of incidental note. These appear stable from 10/30/2018. ? 3. A simple right renal cyst is of incidental note. ? 2019 Elastography:?[id number] fibrosis stage F2-F3. ENDOSCOPIC PROCEDURES:? 12/28/20 EGD AND COLONOSCOPY SHOWED: ESOPHAGUS: Tortuous esophagus with increased tertiary contractions without stricture ring or varices. STOMACH:? Gastritis with chronic appearing erosion DUODENUM:? Normal - biopsied to check for celiac sprue Colonoscopy Findings:? One large and one small polyps removed Moderate diverticulosis seen in the sigmoid colon Moderate hemorrhoids on retroflexed exam. Plan: Repeat Colonoscopy interval based on path results - in 2 years if polyps are adenomatous and 10 years if polyps are hyperplastic. Above findings were reviewed with the patient and colon polyps and diverticulosis handouts were given in the discharge area 02/12/2018 EGD SHOWED: LARYNX:? Changes of LPRD ESOPHAGUS:? Normal STOMACH:? Gastritis, moderate amount of bile in the stomach Symptoms of nocturnal choking may be due to bile reflux versus delayed gastric emptying. Plan:? Continue pantoprazole medications (Omeprazole at 20 mg PO once daily) ?TODAY'S VISIT Patient follow up for GERD, Constipation, and cirrhosis. Patient cc: Nauseas, abdominal pain with bloating and burning sensation, bloody stool, and some swallowing difficulty. Unable to FU earlier due to other health issues (leg swelling and back pain) Worried about her brother who had a colon resection for severe diverticulosis and had 4 surgeries, has a colostomy bag and still in the hospital x 2 months Son has mental issues. Complains of intermittent rectal bleeding (BRB) twice a week. Not always related to constipation. Also complains of nausea and feels upper part of abdomen is swollen Has intermittent constipation and has a BM once a day PAST VISITS: Patient cc: fatigue, nauseas, abdominal pain/bloating, acid reflex on and off, and constipation, some dysphagia. Resumed taking Amitiza 8 mg twice a day Has a BM once a day associated with straining. Denies recent rectal bleeding. Continues to have nausea and epigastric burning Continues to have bloating and constipation with intermittent rectal bleeding. Has a BM every other day - hard stools with straining Drinking a lot of water. Also notes dysphagia and nausea Returns after a hiatus of 18 months - has been dealing with other issues. CC: Pt states she has been throwing up a lot and is having trouble eating. She has been feeling nausea and her ribs hurt from gagging. Pains are in the middle of her stomach and in the bottom of the esophagus and she feels as though her food is stuck there and it is not going down. Complains of nausea, vomiting. Notes dysphagia to solid food - feels food is stuck in the middle of the chest. Keeps drinking fluids - feels food is there all day. Continues to have constipation. Feels hungry and unable to eat. Has one BM daily. Unable to go out - Feels sick to the stomach with gagging followed by vomiting - nothing comes up. Has lost weight since she is not able to eat full meals - weighed 291 lbs ?PAST VISIT: Had a temporary implant for back pain and having a permananet implant placement on 10/08/20 ?? ? Continues to have RUQ pain. ?? ? Has had nausea and throwing up a lot. ?? ? She would like to have her back fixed first and then schedule the EGD and Colonoscopy. ?? ? Denies recent rectal bleeding. Notes intermittent rectal bleeding. ? ? ? Annoying pains on the bottom of her left breast. ?? ? Taking Omeprazole and notes increased heartburn than before. ?? ? Unable to eat anything for 2 days and was drinking water. ?? ? Only thing which helped was eileen tea. ?? ? Thinks she may have lost a? few lbs and is unsure. ? ? ? Did not have the colonoscopy since she was afraid - there is a lot going on. ? Uncontrolled blood sugars despite taking Insulin. ? Wakes up with nausea and has intermittent vomiting. ? Has nausea looking at the food. ? ? ? Feels bloated all the time [facility] Medical History (Updated 11/01/23 @ 08:31 by Annika Redding MD) Vitamin D deficiency Degenerative joint disease of right shoulder Restrictive lung disease MATILDA (obstructive sleep apnea) Asthma COPD (chronic obstructive pulmonary disease) Blood dyscrasia Superficial bruising of lower leg Pain and swelling of right lower extremity Morbid obesity with BMI of 50.0-59.9, adult Pure hypercholesterolemia Fatigue Diabetes mellitus Pedal edema Nausea and vomiting Abdominal pain Atypical chest pain On beta kelsey at home Dyspnea on effort Asthma Sleep apnea with use of continuous positive airway pressure (CPAP) HTN (hypertension) Liver cirrhosis Pars defect of lumbar spine Spondylolisthesis, lumbar region Postlaminectomy syndrome, lumbar Spondylosis of lumbar spine Rectal bleeding Fatty pancreas Chronic constipation Cirrhosis of liver without ascites Body mass index [BMI] 50.0-59.9, adult Morbid (severe) obesity due to excess calories Depression Anxiety Insomnia Obstructive sleep apnea Periodic limb movement disorder Neuropathic pain of both feet GERD (gastroesophageal reflux disease) Gastroparesis Lumbar degenerative disc disease Benign essential hypertension Dyslipidemia Diastolic dysfunction Type 2 diabetes mellitus with diabetic autonomic (poly)neuropathy Surgical History H/O colonoscopy History of surgery History of esophagogastroduodenoscopy (EGD) H/O cardiac catheterization (~12/14/17) H/O section History of laryngoscopy (~02/10/19) History of ventral hernia repair (~2008) History of appendectomy History of lumbar discectomy Family History Father Diabetes mellitus Hypertension Mother Diabetes mellitus Hypertension Uterine cancer History of heart attack Social History Housing: Apartment Are you a primary transitional care liaison to a significant other at home: No Do you presently have visiting nurse or other home services: Yes (Home Health Aide, VNA) Alcohol intake: never Patient Tobacco Use Status: Former Tobacco user Tobacco use type: Cigarette Years Smoked: 10 e-Cigarette/Vaping Use: Never Used Second Hand Smoke Exposure: No service: No Current occupational status: disabled Cognitive needs: No Hearing needs: No Vision needs: Yes Review of Systems Const Denies chills, Reports fatigue (increased lately), Denies fever(s) and Denies headache(s) ENT Denies dysphagia, Denies dizziness, Denies otalgia, Denies headache(s), Denies neck pain, Denies odynophagia and Denies sore throat Card Denies chest pain, Reports leg edema (bilateral), Denies palpitations and Rep orts dyspnea on exertion Resp Denies cough and Reports dyspnea on exertion GI Denies abdominal pain, Denies constipation, Denies dysphagia, Denies heartburn, Denies diarrhea, Denies nausea, Denies odynophagia and Denies vomiting Denies difficulty voiding, Reports nocturia, Denies dysuria and Denies urinary urgency Musc Details: (+) recurrent bilateral leg pain, especially with prolonged walking Reports back pain (over the lower back - chronic), Reports arthralgias (over the right shoulder) and Denies neck pain Skin/Breast Denies rash Neuro Denies dizziness and Denies headache(s) Endo Reports fatigue (increased lately) and Denies palpitations Physical Exam Vital Signs: Last Vital Signs Pulse 92 11/01/23 08:10 BP 142/74 H 11/01/23 08:10 Pulse Ox 94 11/01/23 08:10 Oxygen Delivery Method Room Air 11/01/23 08:10 BMI result Body Mass Index 49.9 Const General: healthy appearing and no acute distress Nutritional Appearance: obese Orientation/consciousness: patient oriented x3 Limitations: no limitations HEENT Head: Yes normal to inspection Ears: hearing grossly normal bilaterally Eyes Sclerae: sclerae normal Pupils: Equal, round and reactive pupils present Neck Neck: Yes normal visual inspection Chest Chest palpation & inspection: normal inspection of the chest Resp Effort & Inspection: normal respiratory effort Auscultation: clear to auscultation bilaterally Cardio Palpation: normal PMI Rate: regular rate Rhythm: regular rhythm Heart sounds: S1 normal heart sound present, S2 normal heart sound present and no murmurs GI Palpation (GI): Soft to palpation, nontender and No hepatosplenomegaly present Auscultation: normal bowel sounds Rectal Exam - Female: deferred Skin General skin exam: no rashes or lesions noted Neuro General: patient oriented x3, gait normal and moves all extremities Cranial nerves: Yes Equal, round and reactive pupils present Psych Appearance: grossly normal Mental Status: mental status grossly normal Assessment & Plan Assessment & Plan (1) Gastroparesis: Code(s): K31.84 - Gastroparesis Category: Medical (2) GERD (gastroesophageal reflux disease): Comment: Upper GI series done in 2019 came out normal Code(s): K21.9 - Gastro-esophageal reflux disease without esophagitis Category: Medical Qualifiers: Esophagitis presence: without esophagitis Qualified Code(s): K21.9 - Gastro-esophageal reflux disease without esophagitis (3) Chronic constipation: Comment: Continue Senna and Lubiprotone Code(s): K59.09 - Other constipation Category: Medical (4) Rectal bleeding: Comment: Likely from hemorrhoids Code(s): K62.5 - Hemorrhage of anus and rectum Category: Medical (5) Liver cirrhosis: Comment: Hepatic steatosis complicated by suspected compensated cirrhosis likely related to a combination of obesity and past hepatitis C infection. Patient expressed concern regarding progressive liver disease. She was advised weight reduction since she is not interested in bariatric surgery at present Code(s): K74.60 - Unspecified cirrhosis of liver Category: Medical (6) Colon cancer screening: Code(s): Z12.11 - Encounter for screening for malignant neoplasm of colon Category: Medical (7) Nausea and vomiting: Code(s): R11.2 - Nausea with vomiting, unspecified Category: Medical Qualifiers: Vomiting Intractability: non-intractable Vomiting type: unspecified Qualified Code(s): R11.2 - Nausea with vomiting, unspecified (8) Morbid obesity with BMI of 50.0-59.9, adult: Comment: SHE REMAINS GROSSLY OVERWEIGHT. SHE CLAIMS THAT SHE IS WATCHING DIET AND STARTING TO WALK AND SHE IS TRYING TO LOSE WEIGHT ON HER OWN. Code(s): E66.01 - Morbid (severe) obesity due to excess calories; Z68.43 - Body mass index [BMI] 50.0-59.9, adult Category: Medical (9) RUQ abdominal pain: Code(s): R10.11 - Right upper quadrant pain Category: Medical (10) Vitamin D deficiency: Code(s): E55.9 - Vitamin D deficiency, unspecified Category: Medical (11) Gallbladder polyp: Code(s): K82.4 - Cholesterolosis of gallbladder Category: Medical Plan 53 YF with LVH, moderate, echo 03/03 with normal LV systolic function, DM 2 - Diabetes mellitus type 2, HTN - Hypertension, Hepatic Steatosis/Fatty Liver, RLL nodule - 05/[address], MATILDA followed in GI for hepatic steatosis with cirrhosis on elastography (normal LFts). Patient also complains of dysphagia, decreased appetite, early satiety, nausea and vomiting likely due to diabetic gastroparesis - confirmed on gastric emptying study. She has chronic constipation most likely slow transit constipation due to long- standing diabetes, use of pain medication and adhesions from past surgeries. Patient was advised to increase senna to 2 tablets twice daily for constipation. ? She has been taking? Amitiza twice daily with partial relief.? EGD and colonoscopy was performed in 12/2020 and findings as noted above. Repeat colonoscopy in 6 months to FU on large TV adenoma at 60 cms. Patient was advised to continue metoclopramide 10 mg 3 times daily for gastroparesis and constipation and add Mirtazepine 7.5 mg at bedtime 08/04/22 Resume lubiprostone 8 mg twice daily and schedule an appt for an EGD (GERD and Dysphagia) and Colonoscopy (FU of colon polyps) in Sep, 2022 EGD and colon scheduled on 02/16/23 and had to be cancelled pending cardiology workup 11/01/23 Complains of intermittent rectal bleeding (BRB) twice a week. Not always related to constipation. Also complains of nausea and feels upper part of abdomen is swollen Has intermittent constipation and has a BM once a day Pt advised to schedule an abdominal ultrasound for follow-up of gallbladder polyps. Patient will be scheduled for an upper endoscopy (abd pain, GERD, gastroparesis) and colonoscopy (FU of colon polyps) - scheduled 05/02/24 FU in 4 months Orders: Orders US abdomen limited 11/01/23 K82.4 - Cholesterolosis of gallbladder Medications: New bisacodyl (Dulcolax (bisacodyl)) Take 2 tablets at 12 pm daily starting 2 days before colonoscopy appointment 10 mg (2 x 5 mg) PO ONCE 2 days 4 tabs 0RF Refilled lubiprostone 8 mcg PO BID 60 caps 2RF K59.09 - Other constipation peg 3350-electrolytes 236-22.74-6.74 -5.86 gram Refer to prep instructions given/ mailed to you from GI OFFICE. until fecal effluent is clear 240 mL PO Q10M 4,000 mL 0RF Coding Level of Care Code Est Pt Level 4 (52768) Diagnoses Gastroparesis K31.84 Gastroesophageal reflux disease without esophagitis K21.9 Esophagitis presence: without esophagitis Chronic constipation K59.09 Rectal bleeding K62.5 Liver cirrhosis K74.60 Colon cancer screening Z12.11 Non-intractable vomiting with nausea, unspecified vomiting type R11.2 Vomiting Intractability: non-intractable Vomiting type: unspecified Morbid obesity with BMI of 50.0-59.9, adult E66.01; Z68.43 RUQ abdominal pain R10.11 Vitamin D deficiency E55.9 Gallbladder polyp K82.4 Time Spent (min) 25
[2023-11-01 08:10] VITALS: BP 142/74; PULSE 92; O2SAT 94; BMI 49.9
== END 2023-11-01 08:34 | disposition home or self-care (01) ==
PROVIDERS: PCP Internal Medicine; Visit Provider Internal Medicine Gastroenterology
DX: K31.84 Gastroparesis (principal); K21.9 Gastro-esophageal reflux disease without esophagitis; K59.09 Other constipation; K62.5 Hemorrhage of anus and rectum; K74.60 Unspecified cirrhosis of liver; Z12.11 Encounter for screening for malignant neoplasm of colon; R11.2 Nausea with vomiting, unspecified; E66.01 Morbid (severe) obesity due to excess calories; Z68.43 Body mass index [BMI] 50.0-59.9, adult; R10.11 Right upper quadrant pain; E55.9 Vitamin D deficiency, unspecified; K82.4 Cholesterolosis of gallbladder
CPT/HCPCS: 99214

== ENCOUNTER → 2023-11-01 07:53 | Outpatient (BNVA) | payer OTHER, SELFPAY | PROVIDERS: PCP Internal Medicine; Visit Provider Internal Medicine Gastroenterology | DX: K31.84 Gastroparesis (principal); K21.9 Gastro-esophageal reflux disease without esophagitis; K59.01 Slow transit constipation; K62.5 Hemorrhage of anus and rectum; K74.60 Unspecified cirrhosis of liver; R11.2 Nausea with vomiting, unspecified; E66.01 Morbid (severe) obesity due to excess calories; I10 Essential (primary) hypertension; E55.9 Vitamin D deficiency, unspecified; K82.4 Cholesterolosis of gallbladder; Z68.42 Body mass index [BMI] 45.0-49.9, adult; Z12.11 Encounter for screening for malignant neoplasm of colon | CPT/HCPCS: 99212 ==

== ENCOUNTER 2023-11-13 08:09 | Outpatient (REF) | payer OTHER, SELFPAY ==
--- NOTE | ~2023-11-13 | US_ITS ---
EXAMINATION: US ABDOMEN LIMITED CLINICAL INFORMATION: Cholesterolosis of the gallbladder. COMPARISON: Ultrasound abdomen 08/23/2022 and 07/20/2021. CT angiogram abdomen and pelvis 05/05/2021. X-ray abdomen 11/08/2006. TECHNIQUE: Real-time imaging of the right upper quadrant abdominal viscera. Limited visualization due to bowel gas. FINDINGS: PANCREAS: Limited visualization of pancreatic tail and head. Imaged portion of pancreatic body is unremarkable. A 1.8 x 0.6 x 1.4 cm hypoechoic soft tissue nodule adjacent to the pancreatic head may possibly represent a lymph node. LIVER: Hepatomegaly, 16.9 cm. Increased hepatic parenchymal heterogeneity and echogenicity could be associated with hepatocellular disease/hepatic steatosis and severely limits visualization. Hypoechoic areas within the right hepatic lobe adjacent to the gallbladder may represent areas of focal sparing within a fatty liver. Correlation with liver function tests and clinical exam recommended to determine further management. GALLBLADDER: A 4 mm gallbladder polyp. Previous exam demonstrated a 6 mm gallbladder polyp. No gallbladder wall thickening. COMMON BILE DUCT: Normal in caliber measuring 0.3 cm in diameter. RIGHT KIDNEY: No hydronephrosis. No renal calculi. Limited visualization. The kidney measures 11.0 cm in maximum dimension. FREE FLUID: None. US/US abdomen limited IMPRESSION: 1. A 1.8 cm hypoechoic soft tissue nodule adjacent to the pancreatic head may possibly represent a lymph node and was not appreciated on the prior exam. 2. Hepatomegaly, 16.9 cm. Increased hepatic parenchymal heterogeneity and echogenicity could be associated with hepatocellular disease/hepatic steatosis and severely limits visualization. Hypoechoic areas within the right hepatic lobe adjacent to the gallbladder may represent areas of focal sparing within a fatty liver. 3. A 4 mm gallbladder polyp. Previous exam demonstrated a 6 mm gallbladder polyp.
[2023-11-13 08:39] LABS: MANUAL DIFF FLAG NO
[2023-11-13 09:08] LABS: Basophils Absolute Auto 0.1 X10*3/uL (0.0-0.2); Eosinophils Absolute Auto 0.5 X10*3/uL (0.0-0.4); Eosinophils Percent Auto 5.9 % (0-4); Hematocrit 39.7 % (37.0-47.0); Hemoglobin 13.3 g/dl (12.0-16.0); Imm Gran Abs Auto 0.03 X10*3/uL (0.00-0.03); Imm Gran Pct Auto 0.3 % (0.0-0.4); Lymphocytes Absolute Auto 3.3 X10*3/uL (1.2-4.9); Lymphocytes Percent Auto 35.4 % (20-40); Mean Corpuscular HGB Conc 33.5 g/dl (31.0-35.0); Mean Corpuscular Hemoglobin 28.8 pg (27.0-33.0); Mean Corpuscular Volume 85.9 fL (80.0-98.0); Mean Platelet Volume 10.9 fL (9.4-12.3); Monocytes Absolute Auto 0.6 X10*3/uL (0.1-1.2); Monocytes Percent Auto 6.1 % (2-11); Neutrophils Absolute Auto 4.7 x10*3/uL (2.0-8.3); Neutrophils Percent Auto 51.3 % (45-73); Platelet Count 268 X10*3/uL (160-400); Red Blood Count 4.62 X10*6/uL (4.20-5.50); Red Cell Distribution Width 13.1 % (11.0-16.0); White Blood Count 9.2 X10*3/uL (4.8-10.8)
[2023-11-13 09:32] LABS: B Type Natriuretic Peptide < 10 pg/mL (<100)
[2023-11-13 09:41] LABS: Alanine Aminotransferase 36 U/L (0-31); Alkaline Phosphatase 94 U/L (39-117); Anion Gap 16 (12-20); Aspartate Amino Transferase 20 U/L (5-31); Bilirubin Total 0.8 mg/dL (0.0-1.0); Blood Urea Nitrogen 22 mg/dL (9-16); Calcium 10.3 mg/dL (8.4-10.2); Carbon Dioxide 24 mmol/L (22-29); Chloride 97 mmol/L (96-108); Cholesterol 94 mg/dL (<200); Estimated Glomerular Filt Rate 40; Glucose Fasting 472 mg/dL (60-99); HDL Cholesterol 30 mg/dL (>40); LDL Cholesterol Calculated 37 mg/dL (<100); Potassium 4.8 mmol/L (3.3-5.1); Sodium 132 mmol/L (135-145); Total Protein 7.8 g/dL (6.5-8.0); Triglycerides 135 mg/dL (<150)
[2023-11-13 11:00] LABS: Folate 9.2 ng/mL (> or = 4.0); Vitamin B12 478 pg/mL (200-900)
== END 2023-11-13 08:10 | disposition home or self-care (01) ==
LOC: HO.US 08:09
PROVIDERS: Absent Provider Internal Medicine; PCP Internal Medicine; Visit Provider Internal Medicine Gastroenterology
DX: I50.9 Heart failure, unspecified (principal); D64.9 Anemia, unspecified; E53.8 Deficiency of other specified B group vitamins; E78.00 Pure hypercholesterolemia, unspecified; K82.4 Cholesterolosis of gallbladder
CPT/HCPCS: 36415; 76705; 80053; 80061; 82607; 82746; 83880; 85025

== ENCOUNTER 2023-11-13 14:38 | Outpatient (AMB) | payer OTHER, SELFPAY ==
[2023-11-13 14:39] VITALS: BP 112/70; PULSE 79; O2SAT 95; BMI 50.8
--- NOTE | 2023-11-13 14:39 | MHC.PC.OV ---
Vital Signs 11/13/23 14:39 Height 5 ft 4 in Weight 296 lb 0.1 oz BMI 50.8 BP 112/70 Blood Pressure Location Lt brachial Position Sitting Pulse 79 Pulse Source Pulse Oximeter Pulse Oximetry (%) 95 Oxygen Delivery Method Room Air Intake Visit Reasons: [facility] 10/09 LT leg pain Intake Note: Patient is here to follow-up after a visit the emergency department at [facility] on 10/10/23 Allergies adhesive tape Allergy (Intermediate, Verified 11/13/23 15:29) Rash empagliflozin [From JARDIANCE] Allergy (Intermediate, Verified 11/13/23 15:29) Rash sitagliptin [From JANUVIA] Adverse Reaction (Severe, Verified 11/13/23 15:29) Rash,nausea, hypoglycemia metformin [METFORMIN] Adverse Reaction (Intermediate, Verified 11/13/23 15:29) Rash, GI upset Medication List - Last Reconciled 11/13/23 by Bi Dennis MD [ABSORBANT HEAVY PADS As directed] albuterol sulfate 90 mcg/actuation (ProAir HFA) 2 puffs inhalation Q4-6H PRN 30 days atorvastatin 40 mg PO BEDTIME 90 days bisacodyl (Dulcolax (bisacodyl)) 10 mg (2 x 5 mg) PO ONCE 2 days budesonide-formoterol 160-4.5 mcg/actuation (Symbicort) 2 puffs inhalation BID cholecalciferol (vitamin D3) 50 mcg PO DAILY 90 days clotrimazole-betamethasone 1-0.05 % 1 appl topical BID 2 weeks [DISPOSABLE WIPES As directed] dulaglutide (Trulicity) 4.5 mg subcut QWEEK fluoxetine 10 mg PO DAILY fluticasone propionate 50 mcg/actuation 1 spray intranasal DAILY glipizide ER 10 mg PO BID insulin regular hum U-500 conc 200 units in AM, 150 units at lunchtime and 150 units at dinnertime subcutaneously; lisinopril 10 mg PO DAILY lorazepam 0.5 mg PO TID PRN 30 days lubiprostone 8 mcg PO BID meloxicam 15 mg PO DAILY PRN 30 days metoclopramide HCl 10 mg PO TID PRN omeprazole 20 mg PO BID 30 days oxycodone 5 mg PO Q6-8H PRN 7 days peg 3350-electrolytes 236-22.74-6.74 -5.86 gram 240 mL PO Q10M pramipexole 1 mg PO TID 30 days spironolactone 100 mg PO BID 30 days tramadol Take 1 to 2 tablets orlly twice a day as needed for pain PRN; 25 days Tobacco use date assessed: 09/26/23 Dental Screening Dental Screen Date: 09/26/23 HPI [facility] 10/09 LT leg pain HPI Details Patient comes in today for her HDF follow up visit She went to the ER at [facility] last month on 10/10/2023 for increasing pain at the time over the anterior aspect of her left thigh that she states have been going on for about a week Recalls that she was trying to get into a car and sit down when her left leg started shaking due to severe pain at the time, and that her pain meds then which included Tramadol, Oxycodone and Ibuprofen, were not helping much She had some labs and a lumbar spine CT done at the ER for further evaluation - labs were normal except for a high blood sugar level; her lumbar spine CT reportedly showed (+) chronic changes consistent with her lumbar spine degenerative disc disease with no acute findings She was apparently given some morphine in the ER to help relieve her pain and her symptoms gradually subsided while she was awaiting further evaluation in the ER She requested to be discharged home once her pain subsided and did not want to wait until her IV fluids were completed She was instructed to continue on her current Rx and to follow up with her PCP RAINA She is now requesting to see a different back specialist for further evaluation of her back issues Patient also adds that she has noticed that her blood sugar readings have been running high consistently for the past few weeks - she continues to follow up with [facility] for management of her diabetes States that she has also been feeling dizzy often lately and has noticed recently that her blood pressure is often lower than her usual readings She also reports that on more than one occasion, she has noticed her oxygen drop down to as low as 37% during a couple of her dizzy spells and she recalls that she felt very weak then in addition to being dizzy; also felt somewhat SOB at the time She used to see Dr. Olmos at [facility] for pulmonary follow up but has not been back to see him in over a year Adds that she had her follow up labs done earlier today - to discuss her results PFSH Medical History Vitamin D deficiency Degenerative joint disease of right shoulder Restrictive lung disease MATILDA (obstructive sleep apnea) Asthma COPD (chronic obstructive pulmonary disease) Blood dyscrasia Superficial bruising of lower leg Pain and swelling of right lower extremity Morbid obesity with BMI of 50.0-59.9, adult Pure hypercholesterolemia Fatigue Diabetes mellitus Pedal edema Nausea and vomiting Abdominal pain Atypical chest pain On beta kelsey at home Dyspnea on effort Asthma Sleep apnea with use of continuous positive airway pressure (CPAP) HTN (hypertension) Liver cirrhosis Pars defect of lumbar spine Spondylolisthesis, lumbar region Postlaminectomy syndrome, lumbar Spondylosis of lumbar spine Rectal bleeding Fatty pancreas Chronic constipation Cirrhosis of liver without ascites Body mass index [BMI] 50.0-59.9, adult Morbid (severe) obesity due to excess calories Depression Anxiety Insomnia Obstructive sleep apnea Periodic limb movement disorder Neuropathic pain of both feet GERD (gastroesophageal reflux disease) Gastroparesis Lumbar degenerative disc disease Benign essential hypertension Dyslipidemia Diastolic dysfunction Type 2 diabetes mellitus with diabetic autonomic (poly)neuropathy Surgical History H/O colonoscopy History of surgery History of esophagogastroduodenoscopy (EGD) H/O cardiac catheterization (~12/14/17) H/O section History of laryngoscopy (~02/10/19) History of ventral hernia repair (~2008) History of appendectomy History of lumbar discectomy Family History Father Diabetes mellitus Hypertension Mother Diabetes mellitus Hypertension Uterine cancer History of heart attack Social History Housing: Apartment Are you a primary health care facility administrator to a significant other at home: No Do you presently have visiting nurse or other home services: Yes (Home Health Aide, VNA) Alcohol intake: never Patient Tobacco Use Status: Former Tobacco user Tobacco use type: Cigarette Years Smoked: 10 e-Cigarette/Vaping Use: Never Used Second Hand Smoke Exposure: No service: No Current occupational status: disabled Cognitive needs: No Hearing needs: No Vision needs: Yes Questionnaire Thrive Questionnaire Date Thrive assessed: 09/26/23 AUDIT C Alcohol Use Questionnaire (AUDIT-C) 1. How often do you have a drink containing alcohol?: Never 3. How often do you have six or more drinks on one occasion?: Never Total Score: 0 Score Reviewed/Action Taken: Yes CEDRIC-7 AMB Questionnaire CEDRIC-7 Date CEDRIC - 7 assessed: 09/26/23 Source: Developed by Drs. Tim Manning, Estephanie Newell, Lawrence Moreno and colleagues, with an educational amira from [employer]. Review of Systems Const Denies chills, Reports fatigue (increased lately), Denies fever(s) and Denies headache(s) ENT Reports as per HPI, Denies dysphagia, Reports dizziness (on and off recently), Denies otalgia, Denies headache(s), Denies neck pain, Denies odynophagia and Denies sore throat Card Denies chest pain, Reports leg edema (bilateral), Denies palpitations and Reports dyspnea on exertion (increased lately and oxygen saturation drops repeatedly - see HPI) Resp Denies cough and Reports dyspnea on exertion (increased lately and oxygen saturation drops repeatedly - see HPI) GI Denies abdominal pain, Denies constipation, Denies dysphagia, Denies heartburn, Denies diarrhea, Denies nausea, Denies odynophagia and Denies vomiting Denies difficulty voiding, Reports nocturia, Denies dysuria and Denies urinary urgency Musc Details: (+) recurrent bilateral leg pain, especially with prolonged walking - increased over the left thigh recently (see HPI) Reports back pain (over the lower back - chronic), Reports arthralgias (over the right shoulder) and Denies neck pain Skin/Breast Denies rash Neuro Reports dizziness (on and off recently) and Denies headache(s) Endo Reports fatigue (increased lately) and Denies palpitations Physical exam (Primary Care) Vital Signs: Last Vital Signs Pulse 79 11/13/23 14:39 BP 112/70 11/13/23 14:39 Pulse Ox 95 11/13/23 14:39 Oxygen Delivery Method Room Air 11/13/23 14:39 BMI result Body Mass Index 50.8 Tobacco/Smoking Status: Tobacco use Status Tobacco use date assessed 09/26/23 11/13/23 14:39 Patient Tobacco Use Status Former Tobacco user 11/13/23 14:39 Tobacco use type Cigarette 11/13/23 14:39 e-Cigarette/Vaping Use Never Used 11/13/23 14:39 Thrive Assessment: Date of Thrive Assessment Date Thrive assessed 09/26/23 11/13/23 14:39 Const General: no acute distress, alert and tired appearing HENMT Ears: TM's normal bilaterally and EAC's normal Throat: Yes posterior oropharynx normal and Yes tonsils normal (no TP congestion noted) Neck Neck: Yes no lymphadenopathy and Yes supple Thyroid: Thyroid normal Resp Auscultation: clear to auscultation bilaterally, no rales and no wheezes Cardio Rate: regular rate Rhythm: regular rhythm Heart sounds: no murmurs GI Palpation (GI): Soft to palpation and nontender Auscultation: normal bowel sounds General: Yes no CVA tenderness Back/Spine/Pelvis Back: no CVA tenderness Thoracic/Lumbar Spine: lumbar spinal tenderness Skin Rashes: no rashes Extrem General: No no calf tenderness, No cyanosis and Yes edema (2+ bilaterally) Results AMB Hemoglobin A1c AMB Hemoglobin A1c 10.1 % Last Edit by HAM Niño on 11/13/23 15:57 Results Reviewed Results Reviewed: Laboratory Last Values Hgb A1c (Clinic) 10.1 % (4.0-6.0) H 11/13/23 08:49 Laboratory Tests 11/13/23 11/13/23 08:38 08:49 Creatinine 1.37 Estimated GFR 40 Fasting Glucose 472 H* Hgb A1c (Clinic) 10.1 H Calcium 10.3 H AST 20 ALT 36 H B-Natriuretic Peptide < 10 Triglycerides 135 Cholesterol 94 LDL Cholesterol, Calc 37 HDL Cholesterol 30 L Vitamin B12 478 Assessment and Plan Assessment & Plan (1) Spondylolisthesis, lumbar region: Comment: Nevro spinal cord stimulator trial was very effective to treat her pain she reports 90% of the pain relief. She reports up to 100 pain relieve when she is at rest. She reports no pain when she is in the situations when iron her pain was previously bothering her a lot. I will schedule her for implantation of spinal cord stimulator. Another consideration for the Nevro machine is this patient has obstructive sleep apnea and it is very difficult to achieve sedation for wake up during the surgery. With Nevro machine the insertion of the spinal cord stimulator not require awareness in the middle of the case. Code(s): M43.16 - Spondylolisthesis, lumbar region Plan: Has POSTLAMINECTOMY SYNDROME and multilevel degerative disc disease of the lumbar spine She has responded very well to trial of SCS in the past and was originally scheduled for SCS insertion with Dr. Mckeon under local/epidural anesthesia on 07/10/2022 but procedure was postponed until patient can get her diabetes under better control Patient then decided later on that she would rather not have the procedure done due to concerns about potential failure/side effects and has just been addressing her chronic pain with Oxycodone 5 mg Q 6 hours PRN and Tramadol 50 mg TID PRN With her recent symptoms (see HPI) and subsequent ER visit last month, a repeat lumbar spine CT done at the ER in September 2023 revealed (+) degenerative disc disease resulting in mild central canal stenosis at L1-L2 and L2-L3 with moderate central canal stenosis at L4-L5. Additionally, there is moderate right and severe left neural foraminal narrowing at L2-L3 and L3-L4, moderate bilateral neural foraminal narrowing at L4-L5 and severe right and moderate left neural foraminal narrowing at L5-S1 She has been seeing neurosurgery in [place] over the years but is now requesting to see a different neurosurgeon if possible for a second opinion/further recommendations as she feels that she has exhausted all of her options and there do not seem to be any helpful options left for her as she feels that she has also failed pain management at this time Will try referring her to [facility] to see if there are any other avenues for her to explore to help with her chronic low back pain (2) Diabetes mellitus: Comment: Out of control in the past. Has since been more compliant with medication with better control. BS today 171 Code(s): E11.9 - Type 2 diabetes mellitus without complications Qualifiers: Diabetes mellitus complication detail: with polyneuropathy Diabetes mellitus complication status: with neurologic complications Diabetes mellitus exterminator helper termite insulin use: with exterminator helper termite use Diabetes mellitus type: type 2 Qualified Code(s): E11.42 - Type 2 diabetes mellitus with diabetic polyneuropathy; Z79.4 - equipment operator intermodal yard (current) use of insulin Plan: Her in-office HgbA1c today is at 10.1%; her HgbA1c was reportedly at 13.2% when checked at the office of [facility] last month in September 2023 (in-office HgbA1c was previously at 8.9% and 8.7% back in March 2023) - goal is <7.0% but she was advised to get it to at least 8.0% before orthopedics will consider scheduling her for right shoulder surgery Reinforced diabetic diet Continue Trulicity 4.5 mg SQ once a week, Glipizide ER 10 mg BID and Humalog 200 units in AM, 150 units at lunch and 150 units at dinner (dose increased by endocrinology last month) Follow-up with [facility] scheduled (3) Pure hypercholesterolemia: Code(s): E78.00 - Pure hypercholesterolemia, unspecified Plan: Results of her labs done earlier today reviewed and discussed with patient - her cholesterol levels are currently at goal Reinforced low cholesterol diet Continue Atorvastatin 40 mg QD Will recheck her labs and fasting lipids in 3 months for follow up (4) Benign essential hypertension: Code(s): I10 - Essential (primary) hypertension Plan: Reinforced low sodium diet - goal is systolic BP of 120 mm or less She is currently on Lisinopril 10 mg QD and Spironolactone 100 mg BID As she has been reporting feeling dizzy often lately, will have her cut her Lisinopril in half to 5 mg QD (5) Degenerative joint disease of right shoulder: Code(s): M19.011 - Primary osteoarthritis, right shoulder Qualifiers: Osteoarthritis type: primary Qualified Code(s): M19.011 - Primary osteoarthritis, right shoulder Plan: Recent right shoulder MRI revealed (+) high-grade, near full-thickness, partial bursal tear of the supraspinatus tendon with tendinopathies as well as osteoarthritis changes She was advised surgical repair by [facility] but they cannot do her surgery until her diabetes is better controlled and her HgbA1c is down to at least 8.0% or less Follow up with [facility] as scheduled (6) Asthma: Comment: Pulmonary function test in 2018 was normal. But she has had clinical picture of mild intermittent bronchial asthma. And has been using Symbicort but does not like the taste [place]: See under COPD. Wixela 250-50 one inh bid is added Code(s): J45.909 - Unspecified asthma, uncomplicated Qualifiers: Asthma complication type: uncomplicated Asthma persistence: intermittent Asthma severity: mild Qualified Code(s): J45.20 - Mild intermittent asthma, uncomplicated Plan: Continue Symbicort 160-4.5 mg 1 inhalation BID and Albuterol HFA 2 puffs 4 times a day as needed She used to see pulmonary (Dr. Olmos) for follow up but has not seen him in over a year - will refer her back to pulmonary for continuing management (7) Chronic constipation: Comment: Continue Senna and Lubiprotone Code(s): K59.09 - Other constipation Plan: Reinforced increased oral fluids and dietary fiber Continue Amitiza 8 mcg BID and Senna 8.6 mg PRN - states that her constipation has been better controlled since she was started on Amitiza by Dr. Redding last year Follow up with GI as scheduled (8) Gastroparesis: Code(s): K31.84 - Gastroparesis Plan: Continue Metoclopramide 10 mg TID PRN Follow up with GI as scheduled (9) GERD (gastroesophageal reflux disease): Comment: Upper GI series done in 2019 came out normal Code(s): K21.9 - Gastro-esophageal reflux disease without esophagitis Qualifiers: Esophagitis presence: without esophagitis Qualified Code(s): K21.9 - Gastro-esophageal reflux disease without esophagitis Plan: Dietary restrictions reinforced Advised that her symptoms may actually be due to her gastroparesis rather than actual reflux disease Continue Omeprazole 20 mg BID (10) Vitamin D deficiency: Code(s): E55.9 - Vitamin D deficiency, unspecified Plan: Continue Vitamin D3 2000 units QD (11) Periodic limb movement disorder: Code(s): G47.61 - Periodic limb movement disorder Plan: Continue Pramipexole 1 mg TID (12) Anxiety: Code(s): F41.9 - Anxiety disorder, unspecified Plan: Continue Lorazepam 0.5 mg TID PRN (13) Depression: Code(s): F32.9 - Major depressive disorder, single episode, unspecified Qualifiers: Active/Remission status: currently active Depression Type: major depressive disorder Major depression episode severity: unspecified Major depression recurrence: recurrent Qualified Code(s): F33.9 - Major depressive disorder, recurrent, unspecified Plan: Continue Citalopram 10 mg QD Follow-up with Psychiatry as scheduled (14) Morbid obesity with BMI of 50.0-59.9, adult: Comment: Patient i her weight and she is trying to reduce s being followed by Endocrinology service, She is on low carbs diet, and Dulaglutide once a week , trying to reduce her weight. Code(s): E66.01 - Morbid (severe) obesity due to excess calories; Z68.43 - Body mass index [BMI] 50.0-59.9, adult Plan: Reinforced diet; exercise and weight loss are unrealistic given patient's multiple physical issues and comorbidities and poor activity tolerance Plan Follow up as scheduled in January 2024 Orders: Orders Hemoglobin A1c 01/20/24 E11.9 - Type 2 diabetes mellitus without complications Comprehensive [place]. Panel Fast 01/20/24 E78.00 - Pure hypercholesterolemia, unspecified TSH reflex Free T4 01/20/24 E78.00 - Pure hypercholesterolemia, unspecified UA CC w/rflx Micro + Cult 01/20/24 R30.0 - Dysuria Microalbumin, Random (w Creat) 01/20/24 E11.9 - Type 2 diabetes mellitus without complications AMB Hemoglobin A1c 11/13/23 E11.43 - Type 2 diabetes mellitus with diabetic autonomic (poly)neuropathy, Z79.4 - care home (current) use of insulin Complete Blood Count Auto Diff 01/20/24 D64.9 - Anemia, unspecified Lipid Panel 01/20/24 E78.00 - Pure hypercholesterolemia, unspecified Vitamin D 25-OH Total 01/20/24 E55.9 - Vitamin D deficiency, unspecified Referrals Neurosurgery Referral M47.816 - Spondylosis without myelopathy or radiculopathy, lumbar region Pulmonology Referral G47.33 - Obstructive sleep apnea (adult) (pediatric), J98.4 - Other disorders of lung Medications: Changed From lisinopril 10 mg PO DAILY To lisinopril 5 mg PO DAILY 90 tabs 1RF 90 days Coding Level of Care Code Est Pt Level 4 (88898) Complex EM visit Add On G2211 Diagnoses Spondylolisthesis, lumbar region M43.16 Type 2 diabetes mellitus with diabetic polyneuropathy, with long-term current use of insulin E11.42; Z79.4 Diabetes mellitus complication detail: with polyneuropathy Diabetes mellitus complication status: with neurologic complications Diabetes mellitus exterminator helper termite insulin use: with exterminator helper termite use Diabetes mellitus type: type 2 Pure hypercholesterolemia E78.00 Benign essential hypertension I10 Primary osteoarthritis of right shoulder M19.011 Osteoarthritis type: primary Mild intermittent asthma without complication J45.20 Asthma complication type: uncomplicated Asthma persistence: intermittent Asthma severity: mild Chronic constipation K59.09 Gastroparesis K31.84 Gastroesophageal reflux disease without esophagitis K21.9 Esophagitis presence: without esophagitis Vitamin D deficiency E55.9 Periodic limb movement disorder G47.61 Anxiety F41.9 Episode of recurrent major depressive disorder, unspecified depression episode severity F33.9 Active/Remission status: currently active Depression Type: major depressive disorder Major depression episode severity: unspecified Major depression recurrence: recurrent Morbid obesity with BMI of 50.0-59.9, adult E66.01; Z68.43
== END 2023-11-13 15:52 | disposition home or self-care (01) ==
PROVIDERS: PCP Internal Medicine; Visit Provider Internal Medicine
DX: E11.43 Type 2 diabetes mellitus with diabetic autonomic (poly)neuropathy (principal); Z79.4 Long term (current) use of insulin
CPT/HCPCS: 83036; 99214; G2211

== ENCOUNTER 2023-11-15 13:49 | Outpatient (AMB) | payer OTHER, SELFPAY ==
[2023-11-15 14:11] VITALS: BP 124/78; PULSE 98; O2SAT 96; BMI 51.3
--- NOTE | 2023-11-15 14:11 | MHC.OFFVIS ---
Vital Signs 11/15/23 14:11 Height 5 ft 4 in Weight 298 lb 11.622 oz BMI 51.3 BP 124/78 Blood Pressure Location Rt brachial Position Sitting Pulse 98 Pulse Source Pulse Oximeter Pulse Oximetry (%) 96 Oxygen Delivery Method Room Air Intake Visit Reasons: Obstructive sleep apnea Intake Note: pt is here for MATILDA follow up,pt did not get cpap yet, needs in lab study for insurance to move forward. pt is tired throughout the day, snoring, witnessed gasping from from sister. Faculty Research Physician Required: No Allergies adhesive tape Allergy (Intermediate, Verified 11/15/23 14:42) Rash empagliflozin [From JARDIANCE] Allergy (Intermediate, Verified 11/15/23 14:42) Rash sitagliptin [From JANUVIA] Adverse Reaction (Severe, Verified 11/15/23 14:42) Rash,nausea, hypoglycemia metformin [METFORMIN] Adverse Reaction (Intermediate, Verified 11/15/23 14:42) Rash, GI upset Medication List - Last Reconciled 11/15/23 by Camila Olmos MD [ABSORBANT HEAVY PADS As directed] albuterol sulfate 90 mcg/actuation (ProAir HFA) 2 puffs inhalation Q4-6H PRN 30 days atorvastatin 40 mg PO BEDTIME 90 days bisacodyl (Dulcolax (bisacodyl)) 10 mg (2 x 5 mg) PO ONCE 2 days budesonide-formoterol 160-4.5 mcg/actuation (Symbicort) 2 puffs inhalation BID cholecalciferol (vitamin D3) 50 mcg PO DAILY 90 days clotrimazole-betamethasone 1-0.05 % 1 appl topical BID 2 weeks [DISPOSABLE WIPES As directed] dulaglutide (Trulicity) 4.5 mg subcut QWEEK fluoxetine 10 mg PO DAILY fluticasone propionate 50 mcg/actuation 1 spray intranasal DAILY glipizide ER 10 mg PO BID insulin regular hum U-500 conc 200 units in AM, 150 units at lunchtime and 150 units at dinnertime subcutaneously; lisinopril 5 mg PO DAILY 90 days lorazepam 0.5 mg PO TID PRN 30 days lubiprostone 8 mcg PO BID meloxicam 15 mg PO DAILY PRN 30 days metoclopramide HCl 10 mg PO TID PRN omeprazole 20 mg PO BID 30 days oxycodone 5 mg PO Q6-8H PRN 7 days peg 3350-electrolytes 236-22.74-6.74 -5.86 gram 240 mL PO Q10M pramipexole 1 mg PO TID 30 days spironolactone 100 mg PO BID 30 days tramadol Take 1 to 2 tablets orlly twice a day as needed for pain PRN; 25 days Do you need a note to return to daycare/school/sports/work: No HPI HPI Obstructive sleep apnea: Details: THIS 53 YEARS OLD FEMALE WITH MORBID OBESITY, HAS HISTORY OF OBSTRUCTIVE SLEEP APNEA FOR THE PAST MANY YEARS. IN ADDITION SHE HAS RESTRICTIVE/OBSTRUCTIVE AIRWAY DISORDER. SHE HAD HOME-BASED SLEEP STUDY BACK IN 2021, HAS NOT BEEN ABLE TO GET THE CPAP. SHE IS HAVING DIFFICULTY IN FALLING ASLEEP AND THEN SHE WAKES UP FREQUENTLY WITH CHOKING LIKE EPISODES. SHE REMAINS TIRED AND SLEEPY DURING THE DAYTIME. THE HOME-BASED SLEEP STUDY HAD CONFIRMED DIAGNOSIS OF RATHER SEVERE OBSTRUCTIVE SLEEP APNEA. PER INSURANCE, BEFORE APPROVING THE CPAP DEVICE, SHE SHE NEEDS TO HAVE IN SLEEP LAB STUDY WITH CPAP TITRATION. HER BREATHING IS STABLE, SHE GETS SHORT OF BREATH ON MINIMAL EXERTION. SHE DENIES ANY COUGH OR WHEEZING. SPIROMETRY IN THE OFFICE IN 2020 WELL IN FEBRUARY 2022 WERE BASICALLY WITHIN NORMAL LIMIT. HOWEVER SHE HAS BEEN USING SYMBICORT 2 PUFFS B.I.D. WELL ALBUTEROL NEEDED. FORMERLY [facility], [facility] Medical History Vitamin D deficiency Degenerative joint disease of right shoulder Restrictive lung disease MATILDA (obstructive sleep apnea) Asthma COPD (chronic obstructive pulmonary disease) Blood dyscrasia Superficial bruising of lower leg Pain and swelling of right lower extremity Morbid obesity with BMI of 50.0-59.9, adult Pure hypercholesterolemia Fatigue Diabetes mellitus Pedal edema Nausea and vomiting Abdominal pain Atypical chest pain On beta kelsey at home Dyspnea on effort Asthma Sleep apnea with use of continuous positive airway pressure (CPAP) HTN (hypertension) Liver cirrhosis Pars defect of lumbar spine Spondylolisthesis, lumbar region Postlaminectomy syndrome, lumbar Spondylosis of lumbar spine Rectal bleeding Fatty pancreas Chronic constipation Cirrhosis of liver without ascites Body mass index [BMI] 50.0-59.9, adult Morbid (severe) obesity due to excess calories Depression Anxiety Insomnia Obstructive sleep apnea Periodic limb movement disorder Neuropathic pain of both feet GERD (gastroesophageal reflux disease) Gastroparesis Lumbar degenerative disc disease Benign essential hypertension Dyslipidemia Diastolic dysfunction Type 2 diabetes mellitus with diabetic autonomic (poly)neuropathy Surgical History H/O colonoscopy History of surgery History of esophagogastroduodenoscopy (EGD) H/O cardiac catheterization (~12/14/17) H/O section History of laryngoscopy (~02/10/19) History of ventral hernia repair (~2008) History of appendectomy History of lumbar discectomy Family History Father Diabetes mellitus Hypertension Mother Diabetes mellitus Hypertension Uterine cancer History of heart attack Social History Housing: Apartment Are you a primary resident care spec to a significant other at home: No Do you presently have visiting nurse or other home services: Yes (Home Health Aide, VNA) Alcohol intake: never Patient Tobacco Use Status: Former Tobacco user Tobacco use type: Cigarette Years Smoked: 10 e-Cigarette/Vaping Use: Never Used Second Hand Smoke Exposure: No service: No Current occupational status: disabled Cognitive needs: No Hearing needs: No Vision needs: Yes Review of Systems Const All systems reviewed & are unremarkable except as noted in HPI and below Reports snoring Eyes Reports no additional complaints ENT Reports nasal congestion (MILD OFF AND ON) Card Denies chest pain, Denies irregular heart rhythm and Denies leg edema Resp Reports cough, Reports snoring and Reports wheezing (MILD INTERMITTENT WITH CONGESTED FEELING) GI Reports heartburn (CONTROLLED WITH OMEPRAZOLE) Reports no additional complaints Musc Reports back pain Skin/Breast Reports system reviewed and no additional complaints, except as documented Neuro Reports restless legs Psych Reports depression (CONTROLLED WITH MED) Aller/Immun Reports wheezing (MILD INTERMITTENT WITH CONGESTED FEELING) Physical Exam Vital Signs: Last Vital Signs Pulse 98 11/15/23 14:11 BP 124/78 11/15/23 14:11 Pulse Ox 96 11/15/23 14:11 Oxygen Delivery Method Room Air 11/15/23 14:11 BMI result Body Mass Index 51.3 Const General: comfortable, no acute distress, alert and awake Orientation/consciousness: patient oriented x3 HEENT Head: Yes normal to inspection General nose exam: No nasal polyps present and No nasal discharge present Face and sinus: Yes sinuses nontender Mouth: oropharynx normal Throat: No posterior oropharynx normal (NARROW AND CROWDED MALLAMPATI CLASS 4) Eyes General: appearance normal, both eyes and all related structures Neck Neck: Yes normal visual inspection, Yes no lymphadenopathy, Yes trachea midline and Yes no JVD Thyroid: Thyroid normal Chest Chest palpation & inspection: normal inspection of the chest, normal palpation of entire chest wall and no tenderness Resp Other: PERCUSSION NOTE IS NOT PERCEPTIBLE BECAUSE OF THICK CHEST WALL. BREATH SOUNDS ARE DISTANT WITH PROLONGED EXPIRATORY PHASE. SHE DOES NOT HAVE ANY WHEEZES OR CREPITATIONS, BUT BREATH SOUNDS ARE DIMINISHED OVER THE BASILAR AREAS. Cardio Palpation: normal PMI Rate: regular rate Rhythm: regular rhythm Heart sounds: no gallops and no murmurs GI Palpation (GI): Soft to palpation, nontender, No hepatosplenomegaly present and no masses Auscultation: normal bowel sounds Back/Spine/Pelvis Thoracic/Lumbar Spine: thoracic and lumbar spine normal to inspection and thoraco-lumbar ROM limited Skin General skin exam: no rashes or lesions noted Neuro General: patient oriented x3 and no focal motor deficits Cranial nerves: Yes CN's II-XII intact bilaterally Extrem General: Yes normal to inspection, Yes no clubbing, cyanosis or edema and Yes no calf tenderness Psych Speech and movement: Normal speech and movement present Results Reviewed Results Reviewed: THE RESULTS OF HER SLEEP STUDY IN MARCH 2022 REVIEWED AND SHE INDEED DID HAVE SEVERE OBSTRUCTIVE SLEEP APNEA WITH TOTAL SLEEP TIME AHI 66 , ALONG WITH NOCTURNAL HYPOXEMIA WITH O2 SAT BELOW 88% FOR 29 MINUTES. SPIROMETRY TEST ON 03/14/2022, WAS BASICALLY NORMAL Assessment & Plan Assessment & Plan (1) Morbid obesity with BMI of 50.0-59.9, adult: Comment: SHE REMAINS GROSSLY OVERWEIGHT. CURRENT BMI 51.3 SHE CLAIMS THAT SHE IS WATCHING DIET AND STARTING TO WALK AND SHE IS TRYING TO LOSE WEIGHT ON HER OWN. BUT STILL HAS NOT SUCCEEDED IN LOSING WEIGHT. Code(s): E66.01 - Morbid (severe) obesity due to excess calories; Z68.43 - Body mass index [BMI] 50.0-59.9, adult Category: Medical Plan: TALKED TO HER ABOUT WEIGHT REDUCTION. SHE NEEDS TO JOIN WEIGHT MANAGEMENT PROGRAM BUT GOODE SHE CAN NOT DO THAT AT THIS TIME. SHE HAS VERY LITTLE ENERGY TO DO ANY EXERCISE. (2) Asthma: Comment: Pulmonary function test in 2018 and office spirometry in February 2022 were normal. But she has had clinical picture of mild intermittent bronchial asthma. Code(s): J45.909 - Unspecified asthma, uncomplicated Category: Medical Qualifiers: Asthma complication type: uncomplicated Asthma persistence: intermittent Asthma severity: mild Qualified Code(s): J45.20 - Mild intermittent asthma, uncomplicated Plan: Symbicort 160-4.52 puffs b.i.d. but use p.r.n.. Albuterol HFA 2 puffs Q 4-6 hours p.r.n.. (3) Restrictive lung disease: Comment: Even though her PFT And's office spirometry were basically normal, I think she has significant restrictive lung disease due to her morbid obesity. She needs to lose weight but is not able to do any exercise and can not join the weight management program. Code(s): J98.4 - Other disorders of lung Category: Medical Plan: Advised to do deep breathing exercises 3 times a day (4) MATILDA (obstructive sleep apnea): Comment: HAS RATHER VERY SEVERE OBSTRUCTIVE SLEEP APNEA. SHE NEEDS TO BE STARTED ON CPAP THERAPY. SHE IS WELL VERSED WITH CPAP USAGE. She does have past history of using CPAP but had been noncompliant so the CPAP taken away. Now she does promises that she would use the CPAP regularly. She needs a CPAP titration study in the sleep lab, because her home-based sleep study showed severe obstructive sleep apnea with nocturnal hypoxemia. Code(s): G47.33 - Obstructive sleep apnea (adult) (pediatric) Category: Medical Plan: Polysomnogram study, in the. Sleep lab is prescribed Hopefully she can qualify for a split night study, so that she can be titrated in the sleep lab. Orders: Orders RT PSG in-lab sleep study Today E66.01 - Morbid (severe) obesity due to excess calories, G47.33 - Obstructive sleep apnea (adult) (pediatric), J45.20 - Mild intermittent asthma, uncomplicated, Z68.43 - Body mass index [BMI] 50.0-59.9, adult Coding Level of Care Code Est Pt Level 4 (10687) Diagnoses Morbid obesity with BMI of 50.0-59.9, adult E66.01; Z68.43 Mild intermittent asthma without complication J45.20 Asthma complication type: uncomplicated Asthma persistence: intermittent Asthma severity: mild Restrictive lung disease J98.4 MATILDA (obstructive sleep apnea) G47.33
== END 2023-11-15 14:41 | disposition home or self-care (01) ==
PROVIDERS: PCP Internal Medicine; Visit Provider Internal Medicine
DX: E66.01 Morbid (severe) obesity due to excess calories (principal); Z68.43 Body mass index [BMI] 50.0-59.9, adult; J45.20 Mild intermittent asthma, uncomplicated; J98.4 Other disorders of lung; G47.33 Obstructive sleep apnea (adult) (pediatric)
CPT/HCPCS: 99214

== ENCOUNTER → 2023-11-15 13:49 | Outpatient (BNVA) | payer OTHER, SELFPAY | PROVIDERS: PCP Internal Medicine; Visit Provider Internal Medicine | DX: J45.20 Mild intermittent asthma, uncomplicated (principal); J98.4 Other disorders of lung; G47.33 Obstructive sleep apnea (adult) (pediatric); E66.01 Morbid (severe) obesity due to excess calories; Z68.43 Body mass index [BMI] 50.0-59.9, adult | CPT/HCPCS: 99212 ==

== ENCOUNTER → 2023-12-11 19:30 | Outpatient (REF) | payer OTHER, SELFPAY | LOC: HO.SL 19:30 | PROVIDERS: Visit Provider Internal Medicine | DX: G47.33 Obstructive sleep apnea (adult) (pediatric) (principal); J45.20 Mild intermittent asthma, uncomplicated; E66.01 Morbid (severe) obesity due to excess calories; Z68.43 Body mass index [BMI] 50.0-59.9, adult | CPT/HCPCS: 95810 ==

== ENCOUNTER → 2023-12-11 20:25 | Outpatient (BNV) | payer OTHER, SELFPAY | PROVIDERS: Visit Provider Internal Medicine | DX: G47.33 Obstructive sleep apnea (adult) (pediatric) (principal) | CPT/HCPCS: 95810 ==

== ENCOUNTER 2024-01-17 14:32 | Outpatient (AMB) | payer OTHER, SELFPAY ==
[2024-01-17 14:39] VITALS: BP 124/78; PULSE 74; O2SAT 94; BMI 52.6
--- NOTE | 2024-01-17 14:39 | A.OFFVIS_ITS ---
Vital Signs 01/17/24 14:39 Height 5 ft 4 in Weight 306 lb 7.08 oz BMI 52.6 BP 124/78 Blood Pressure Location Lt brachial Position Sitting Pulse 74 Pulse Source Pulse Oximeter Pulse Oximetry (%) 94 Oxygen Delivery Method Room Air Intake Visit Reasons: jerel Intake Note: pt is here for follow up and states she does get short of breath with activity, here for sleep study follow up Sandblaster Supervisor Required: No Allergies adhesive tape Allergy (Intermediate, Verified 01/17/24 14:58) Rash empagliflozin [From JARDIANCE] Allergy (Intermediate, Verified 01/17/24 14:58) Rash sitagliptin [From JANUVIA] Adverse Reaction (Severe, Verified 01/17/24 14:58) Rash,nausea, hypoglycemia metformin [METFORMIN] Adverse Reaction (Intermediate, Verified 01/17/24 14:58) Rash, GI upset Medication List - Last Reconciled 01/17/24 by Camila Olmos MD [ABSORBANT HEAVY PADS As directed] albuterol sulfate 90 mcg/actuation 2 puffs inhalation Q4-6H PRN 30 days atorvastatin 40 mg PO BEDTIME 90 days bisacodyl (Dulcolax (bisacodyl)) 10 mg (2 x 5 mg) PO ONCE 2 days budesonide-formoterol 160-4.5 mcg/actuation (Symbicort) 2 puffs inhalation BID cholecalciferol (vitamin D3) 50 mcg PO DAILY 90 days clotrimazole-betamethasone 1-0.05 % 1 appl topical BID 2 weeks [DISPOSABLE WIPES As directed] fluoxetine 10 mg PO DAILY fluticasone propionate 50 mcg/actuation 1 spray intranasal DAILY glipizide ER 10 mg PO BID insulin regular hum U-500 conc 200 units in AM, 150 units at lunchtime and 150 units at dinnertime subcutaneously; lisinopril 5 mg PO DAILY 90 days lorazepam 0.5 mg PO TID PRN 30 days lubiprostone 8 mcg PO BID 30 days meloxicam 15 mg PO DAILY PRN 30 days metoclopramide HCl 10 mg PO TID PRN omeprazole 20 mg PO BID oxycodone 5 mg PO Q6-8H PRN 7 days peg 3350-electrolytes 236-22.74-6.74 -5.86 gram 240 mL PO Q10M pramipexole 1 mg PO TID 30 days spironolactone 100 mg PO BID 30 days tramadol Take 1 to 2 tablets orlly twice a day as needed for pain PRN; 7 days Do you need a note to return to daycare/school/sports/work: No HPI HPI jerel: Details: THIS 53 YEARS OLD FEMALE WITH SUPER MORBID OBESITY AND SEVERE OBSTRUCTIVE SLEEP APNEA/HYPOXEMIA, WAS IN THE SLEEP LAB FOR SPLIT NIGHT STUDY ON 12/11/2023. THE BASELINE STUDY WAS POSITIVE FOR VERY SEVERE OBSTRUCTIVE SLEEP APNEA WITH AHI 79. WHEN CPAP WAS APPLIED SHE JUST COULD NOT SLEEP AFTER THAT AND STUDY ENDED PREMATURELY. PATIENT STATES THAT ONCE SHE IS AWAKE FROM HER INITIAL STUDY SHE JUST CAN NOT GO BACK TO SLEEP. SHE CONTINUES TO HAVE THE PROBLEM OF POOR SLEEP AT NIGHT AND DAYTIME SLEEPINESS. AFTER I EXPLAINED TO HER ABOUT WHAT HAPPENED ON THIS NIGHT, AND SHE NEEDS TO GO BACK FOR CPAP TITRATION, SHE SAID SHE IS WILLING TO GO BACK BUT LONG SHE IS STARTED ON THE CPAP RIGHT AWAY. SHE WOULD ALSO NEED ANXIOLYTIC MED, TO HELP HER SLEEP AND SHE DOES HAVE LORAZEPAM 0.5 MG TABLETS AT HOME. FAR SHORTNESS OF BREATH AND WHEEZING HER CONCERNED THEY SEEM TO BE UNDER CONTROLLED WITH THE USE OF SYMBICORT 160-4.52 PUFFS B.I.D. AND ALBUTEROL HFA P.R.N. SHE ALSO HAS INTERMITTENT NASAL CONGESTION WHICH IS CONTROLLED WITH USE OF FLONASE 1 SPRAY IN EACH NOSTRIL EVERY NIGHT. REPLACED BY [facility] Medical History Vitamin D deficiency Degenerative joint disease of right shoulder Restrictive lung disease JEREL (obstructive sleep apnea) Asthma COPD (chronic obstructive pulmonary disease) Blood dyscrasia Superficial bruising of lower leg Pain and swelling of right lower extremity Morbid obesity with BMI of 50.0-59.9, adult Pure hypercholesterolemia Fatigue Diabetes mellitus Pedal edema Nausea and vomiting Abdominal pain Atypical chest pain On beta kelsey at home Dyspnea on effort Asthma Sleep apnea with use of continuous positive airway pressure (CPAP) HTN (hypertension) Liver cirrhosis Pars defect of lumbar spine Spondylolisthesis, lumbar region Postlaminectomy syndrome, lumbar Spondylosis of lumbar spine Rectal bleeding Fatty pancreas Chronic constipation Cirrhosis of liver without ascites Body mass index [BMI] 50.0-59.9, adult Morbid (severe) obesity due to excess calories Depression Anxiety Insomnia Obstructive sleep apnea Periodic limb movement disorder Neuropathic pain of both feet GERD (gastroesophageal reflux disease) Gastroparesis Lumbar degenerative disc disease Benign essential hypertension Dyslipidemia Diastolic dysfunction Type 2 diabetes mellitus with diabetic autonomic (poly)neuropathy Surgical History H/O colonoscopy History of surgery History of esophagogastroduodenoscopy (EGD) H/O cardiac catheterization (~12/14/17) H/O section History of laryngoscopy (~02/10/19) History of ventral hernia repair (~2008) History of appendectomy History of lumbar discectomy Family History Father Diabetes mellitus Hypertension Mother Diabetes mellitus Hypertension Uterine cancer History of heart attack Social History Housing: Apartment Are you a primary gericare aide teacher to a significant other at home: No Do you presently have visiting nurse or other home services: Yes (Home Health Aide, VNA) Alcohol intake: never Patient Tobacco Use Status: Former Tobacco user Tobacco use type: Cigarette Years Smoked: 10 e-Cigarette/Vaping Use: Never Used Second Hand Smoke Exposure: No service: No Current occupational status: disabled Cognitive needs: No Hearing needs: No Vision needs: Yes Review of Systems Const All systems reviewed & are unremarkable except as noted in HPI and below Reports snoring Eyes Reports no additional complaints ENT Reports nasal congestion (MILD OFF AND ON) Card Denies chest pain, Denies irregular heart rhythm and Denies leg edema Resp Reports cough, Reports snoring and Reports wheezing (MILD INTERMITTENT WITH CONGESTED FEELING) GI Reports heartburn (CONTROLLED WITH OMEPRAZOLE) Reports no additional complaints Musc Reports back pain Skin/Breast Reports system reviewed and no additional complaints, except as documented Neuro Reports restless legs Psych Reports depression (CONTROLLED WITH MED) Aller/Immun Reports wheezing (MILD INTERMITTENT WITH CONGESTED FEELING) Physical Exam Vital Signs: Last Vital Signs Pulse 74 01/17/24 14:39 BP 124/78 01/17/24 14:39 Pulse Ox 94 01/17/24 14:39 Oxygen Delivery Method Room Air 01/17/24 14:39 BMI result Body Mass Index 52.6 Const General: comfortable, no acute distress, alert and awake Orientation/consciousness: patient oriented x3 HEENT Head: Yes normal to inspection General nose exam: No nasal polyps present and No nasal discharge present Face and sinus: Yes sinuses nontender Mouth: oropharynx normal Throat: No posterior oropharynx normal (NARROW AND CROWDED MALLAMPATI CLASS 4) Eyes General: appearance normal, both eyes and all related structures Neck Neck: Yes normal visual inspection, Yes no lymphadenopathy, Yes trachea midline and Yes no JVD Thyroid: Thyroid normal Chest Chest palpation & inspection: normal inspection of the chest, normal palpation of entire chest wall and no tenderness Resp Other: PERCUSSION NOTE IS NOT PERCEPTIBLE BECAUSE OF THICK CHEST WALL. BREATH SOUNDS ARE DISTANT WITH PROLONGED EXPIRATORY PHASE. SHE DOES NOT HAVE ANY WHEEZES OR CREPITATIONS, BUT BREATH SOUNDS ARE DIMINISHED OVER THE BASILAR AREAS. Cardio Palpation: normal PMI Rate: regular rate Rhythm: regular rhythm Heart sounds: no gallops and no murmurs GI Palpation (GI): Soft to palpation, nontender, No hepatosplenomegaly present and no masses Auscultation: normal bowel sounds Back/Spine/Pelvis Thoracic/Lumbar Spine: thoracic and lumbar spine normal to inspection and thoraco-lumbar ROM limited Skin General skin exam: no rashes or lesions noted Neuro General: patient oriented x3 and no focal motor deficits Cranial nerves: Yes CN's II-XII intact bilaterally Extrem General: Yes normal to inspection, Yes no clubbing, cyanosis or edema and Yes no calf tenderness Psych Speech and movement: Normal speech and movement present Assessment & Plan Assessment & Plan (1) Morbid obesity with BMI of 50.0-59.9, adult: Comment: SHE REMAINS GROSSLY OVERWEIGHT. CURRENT BMI 52.6 SHE CLAIMS THAT SHE IS WATCHING DIET AND STARTING TO WALK AND SHE IS TRYING TO LOSE WEIGHT ON HER OWN. BUT STILL HAS NOT SUCCEEDED IN LOSING WEIGHT. Code(s): E66.01 - Morbid (severe) obesity due to excess calories; Z68.43 - Body mass index [BMI] 50.0-59.9, adult Category: Medical Plan: Patient is fully aware of her morbid obesity. Talked to her about diet and walking daily. However she has not been able to succeed in losing weight. (2) COPD (chronic obstructive pulmonary disease): Comment: PATIENT HAS LONG-STANDING HISTORY OF BRONCHIAL ASTHMA. CLINICALLY I THINK SHE HAS DEVELOPED OBSTRUCTIVE BRONCHIAL ASTHMA LEADING TO COPD. PULMONARY FUNCTION TEST SHOWED RESTRICTIVE LUNG DISORDER. Code(s): J44.9 - Chronic obstructive pulmonary disease, unspecified Category: Medical Plan: [place] : ADVISED THAT SHE DOES NEED TO USE A LABA/ICS AGENT A MAINTENANCE REGIMEN REGULARLY. BUT SHE HAS CONTINUE TO USE SYMBICORT 160-4.52 PUFFS B.I.D.. (3) JEREL (obstructive sleep apnea): Comment: HAS RATHER VERY SEVERE OBSTRUCTIVE SLEEP APNEA. SHE NEEDS TO BE STARTED ON CPAP THERAPY. SHE IS WELL VERSED WITH CPAP USAGE. She does have past history of using CPAP but had been noncompliant so the CPAP taken away. Now she does promises that she would use the CPAP regularly. SHE WAS NOT ABLE TO COMPLETE THE CPAP TITRATION STUDY BECAUSE SHE COULD NOT JUST SLEEP. I EXPLAINED TO HER THAT SHE DOES NEED CPAP TITRATION IN THE SLEEP LAB BECAUSE SHE HAS NOCTURNAL HYPOXEMIA IN ADDITION TO JEREL. Code(s): G47.33 - Obstructive sleep apnea (adult) (pediatric) Category: Medical Plan: PATIENT IS AGREEABLE TO GO BACK FOR CPAP TITRATION LONG IT STARTED RIGHT AWAY, AND SHE IS NOT. AWAKENED UP SHE WILL NEED SOME AGENT TO FACILITATE HER SLEEP AND, SHE ALREADY HAS LORAZEPAM AT HOME I ADVISED HER THAT SHE MAY USE 1 OR 2 TABLETS OF 0.5 MG BEFORE START OF THE STUDY. (4) Restrictive lung disease: Comment: Even though her PFT And's office spirometry were basically normal, I think she has significant restrictive lung disease due to her morbid obesity. She needs to lose weight but is not able to do any exercise and can not join the weight management program. Code(s): J98.4 - Other disorders of lung Category: Medical Plan: SHE NEEDS TO LOSE WEIGHT AND ALSO ADVISED TO DO DEEP BREATHING EXERCISES 3 TIMES A DAY Orders: Orders RT PSG in-lab sleep titration Today E66.01 - Morbid (severe) obesity due to excess calories, F41.9 - Anxiety disorder, unspecified, G47.33 - Obstructive sleep apnea (adult) (pediatric), Z68.43 - Body mass index [BMI] 50.0-59.9, adult Coding Level of Care Code Est Pt Level 3 (75991) Diagnoses Morbid obesity with BMI of 50.0-59.9, adult E66.01; Z68.43 COPD (chronic obstructive pulmonary disease) J44.9 JEREL (obstructive sleep apnea) G47.33 Restrictive lung disease J98.4
== END 2024-01-17 14:57 | disposition home or self-care (01) ==
PROVIDERS: PCP Internal Medicine; Visit Provider Internal Medicine
DX: E66.01 Morbid (severe) obesity due to excess calories (principal); Z68.43 Body mass index [BMI] 50.0-59.9, adult; J44.9 Chronic obstructive pulmonary disease, unspecified; G47.33 Obstructive sleep apnea (adult) (pediatric); J98.4 Other disorders of lung
CPT/HCPCS: 99213

== ENCOUNTER → 2024-01-17 14:32 | Outpatient (BNVA) | payer OTHER, SELFPAY | PROVIDERS: PCP Internal Medicine; Visit Provider Internal Medicine | DX: G47.33 Obstructive sleep apnea (adult) (pediatric) (principal); J44.9 Chronic obstructive pulmonary disease, unspecified; J98.4 Other disorders of lung; E66.01 Morbid (severe) obesity due to excess calories; Z68.43 Body mass index [BMI] 50.0-59.9, adult | CPT/HCPCS: 99212 ==

== ENCOUNTER 2024-01-24 08:02 | Outpatient (REF) | payer OTHER, SELFPAY ==
[2024-01-24 08:12] LABS: MANUAL DIFF FLAG NO
[2024-01-24 09:31] LABS: Basophils Absolute Auto 0.1 X10*3/uL (0.0-0.2); Basophils Percent Auto 0.8 % (0-2); Eosinophils Absolute Auto 0.6 X10*3/uL (0.0-0.4); Eosinophils Percent Auto 5.6 % (0-4); Hematocrit 42.9 % (37.0-47.0); Imm Gran Abs Auto 0.06 X10*3/uL (0.00-0.03); Imm Gran Pct Auto 0.6 % (0.0-0.4); Lymphocytes Absolute Auto 3.1 X10*3/uL (1.2-4.9); Lymphocytes Percent Auto 30.2 % (20-40); Mean Corpuscular HGB Conc 32.6 g/dl (31.0-35.0); Mean Corpuscular Hemoglobin 28.7 pg (27.0-33.0); Mean Corpuscular Volume 87.9 fL (80.0-98.0); Mean Platelet Volume 11.4 fL (9.4-12.3); Monocytes Absolute Auto 0.7 X10*3/uL (0.1-1.2); Monocytes Percent Auto 6.6 % (2-11); Neutrophils Absolute Auto 5.7 x10*3/uL (2.0-8.3); Neutrophils Percent Auto 56.2 % (45-73); Platelet Count 291 X10*3/uL (160-400); Red Blood Count 4.88 X10*6/uL (4.20-5.50); Red Cell Distribution Width 13.2 % (11.0-16.0); White Blood Count 10.1 X10*3/uL (4.8-10.8)
[2024-01-24 09:39] LABS: Estimated Average Glucose 263 mg/dL; Hemoglobin A1c % 10.8 % (<6.0)
[2024-01-24 10:36] LABS: Alanine Aminotransferase 29 U/L (0-31); Alkaline Phosphatase 103 U/L (39-117); Anion Gap 16 (12-20); Aspartate Amino Transferase 19 U/L (5-31); Bilirubin Total 0.8 mg/dL (0.0-1.0); Blood Urea Nitrogen 17 mg/dL (9-16); Calcium 10.3 mg/dL (8.4-10.2); Carbon Dioxide 21 mmol/L (22-29); Chloride 99 mmol/L (96-108); Cholesterol 101 mg/dL (<200); Estimated Glomerular Filt Rate 46; Glucose Fasting 495 mg/dL (60-99); HDL Cholesterol 32 mg/dL (>40); LDL Cholesterol Calculated 45 mg/dL (<100); Potassium 4.4 mmol/L (3.3-5.1); Sodium 132 mmol/L (135-145); TSH reflex Free T4 3.07 uIU/mL (0.32-4.0); Triglycerides 124 mg/dL (<150); Vitamin D 25-OH Total 36.1 ng/mL (>30)
[2024-01-24 10:41] LABS: Appearance Urine Hazy; Color Urine Yellow; Glucose Urine UA >=1000 mg/dL (Negative); Leukocyte Esterase Urine Negative (Negative); Nitrite Urine Negative (Negative); PH 5.5 (5.0-9.0); UMIC TRIGGER UACC YES; Urine Blood Moderate (2+) (Negative); Urine Ketones Negative (Negative); Urine Protein Negative (Neg-Trace)
[2024-01-24 10:53] LABS: Bacteria Urine 3+ (None Seen); Hyaline Casts Urine 0-2 /LPF (0-2); RBC Urine 0-2 /HPF (0-2); WBC Urine 0-5 /HPF (0-5)
[2024-01-24 11:12] LABS: Creatinine Urine 90.42 mg/dL; Microalbum/Creatinine Ratio Ur 16.5 ug/mg cr (<30)
== END 2024-01-24 08:03 | disposition home or self-care (01) ==
LOC: HO.LAB 08:02
PROVIDERS: PCP Internal Medicine; Visit Provider Internal Medicine
DX: D64.9 Anemia, unspecified (principal); E11.9 Type 2 diabetes mellitus without complications; E78.00 Pure hypercholesterolemia, unspecified; E55.9 Vitamin D deficiency, unspecified
CPT/HCPCS: 36415; 80053; 80061; 81001; 82043; 82306; 82570; 83036; 84443; 85025

== ENCOUNTER 2024-01-25 10:57 | Outpatient (AMB) | payer OTHER, SELFPAY ==
--- NOTE | 2024-01-25 11:26 | A.OFFPC_ITS ---
Vital Signs 01/25/24 11:27 Height 5 ft 4 in Weight 297 lb 8 oz BMI 51.1 BP 130/84 Blood Pressure Location Lt brachial Position Sitting Pulse 96 Pulse Source Pulse Oximeter Pulse Oximetry (%) 96 Oxygen Delivery Method Room Air Intake Visit Reasons: 3 Month F/U- due for breast cx screening. Recyclable Materials Distributor Required: No Accompanied by: Self / Same As Patient Allergies adhesive tape Allergy (Intermediate, Verified 01/25/24 11:54) Rash empagliflozin [From JARDIANCE] Allergy (Intermediate, Verified 01/25/24 11:54) Rash sitagliptin [From JANUVIA] Adverse Reaction (Severe, Verified 01/25/24 11:54) Rash,nausea, hypoglycemia metformin [METFORMIN] Adverse Reaction (Intermediate, Verified 01/25/24 11:54) Rash, GI upset Medication List - Last Reconciled 01/28/24 by Bi Dennis MD [ABSORBANT HEAVY PADS As directed] albuterol sulfate 90 mcg/actuation 2 puffs inhalation Q4-6H PRN 30 days atorvastatin 40 mg PO BEDTIME 90 days bisacodyl (Dulcolax (bisacodyl)) 10 mg (2 x 5 mg) PO ONCE 2 days budesonide-formoterol 160-4.5 mcg/actuation (Symbicort) 2 puffs inhalation BID cholecalciferol (vitamin D3) 50 mcg PO DAILY 90 days clotrimazole-betamethasone 1-0.05 % 1 appl topical BID 2 weeks [DISPOSABLE WIPES As directed] dulaglutide 4.5 mg subcut QWEEK fluoxetine 10 mg PO DAILY fluticasone propionate 50 mcg/actuation 1 spray intranasal DAILY glipizide ER 10 mg PO BID insulin regular hum U-500 conc 200 units in AM, 150 units at lunchtime and 150 units at dinnertime subcutaneously; lisinopril 5 mg PO DAILY 90 days lorazepam 0.5 mg PO TID PRN 30 days lubiprostone 8 mcg PO BID 30 days meloxicam 15 mg PO DAILY PRN 30 days metoclopramide HCl 10 mg PO TID PRN omeprazole 20 mg PO BID oxycodone 5 mg PO Q6-8H PRN 7 days peg 3350-electrolytes 236-22.74-6.74 -5.86 gram 240 mL PO Q10M pramipexole 1 mg PO TID 30 days spironolactone 100 mg PO BID 30 days tramadol Take 1 to 2 tablets orally twice a day as needed for pain PRN; 25 days Tobacco use date assessed: 01/25/24 Dental Screening Dental Screen Date: 01/25/24 Did you have a dental visit in the last 12 months?: Yes Did you have a dental problem in the last 6 months where you did not have access to dental care?: No Was dental information given to patient?: Patient has dentist HPI 3 Month F/U- due for breast cx screening. HPI Details Patient comes in today for her follow up visit Relates that she fell down 4 steps of stairs last week on 01/19/24, and has been experiencing increased pain in her lower back since States that she went to the ER at [facility] last week after her fall and imaging studies done on her lower back supposedly came out okay, with no rib Fx An abdominal CT done at [facility] reportedly revealed some prominent lymph nodes and she was advised to have this checked out further - she is already scheduled for abdominal and pelvic CT with IV contrast here at [facility] next week (ordered p reviously by Dr. Redding) Patient states that she also has recurrent nausea, vomiting and abd pain > 2 weeks now, with on and off diarrhea as well She has not noticed any blood in her stool lately She denies any fever, headaches or dizziness lately Denies any exertional chest pains, no increased SOB She had her follow up labs done yesterday - to discuss her results [facility] Medical History Vitamin D deficiency Degenerative joint disease of right shoulder Restrictive lung disease MATILDA (obstructive sleep apnea) Asthma COPD (chronic obstructive pulmonary disease) Blood dyscrasia Superficial bruising of lower leg Pain and swelling of right lower extremity Morbid obesity with BMI of 50.0-59.9, adult Pure hypercholesterolemia Fatigue Diabetes mellitus Pedal edema Nausea and vomiting Abdominal pain Atypical chest pain On beta kelsey at home Dyspnea on effort Asthma Sleep apnea with use of continuous positive airway pressure (CPAP) HTN (hypertension) Liver cirrhosis Pars defect of lumbar spine Spondylolisthesis, lumbar region Postlaminectomy syndrome, lumbar Spondylosis of lumbar spine Rectal bleeding Fatty pancreas Chronic constipation Cirrhosis of liver without ascites Body mass index [BMI] 50.0-59.9, adult Morbid (severe) obesity due to excess calories Depression Anxiety Insomnia Obstructive sleep apnea Periodic limb movement disorder Neuropathic pain of both feet GERD (gastroesophageal reflux disease) Gastroparesis Lumbar degenerative disc disease Benign essential hypertension Dyslipidemia Diastolic dysfunction Type 2 diabetes mellitus with diabetic autonomic (poly)neuropathy Surgical History H/O colonoscopy History of surgery History of esophagogastroduodenoscopy (EGD) H/O cardiac catheterization (~12/14/17) H/O section History of laryngoscopy (~02/10/19) History of ventral hernia repair (~2008) History of appendectomy History of lumbar discectomy Family History Father Diabetes mellitus Hypertension Mother Diabetes mellitus Hypertension Uterine cancer History of heart attack Social History Housing: Apartment Are you a primary assurance services manager health care to a significant other at home: No Do you presently have visiting nurse or other home services: Yes (Home Health Aide, VNA) Alcohol intake: never Patient Tobacco Use Status: Former Tobacco user Tobacco use type: Cigarette Years Smoked: 10 e-Cigarette/Vaping Use: Never Used Second Hand Smoke Exposure: No service: No Current occupational status: disabled Cognitive needs: No Hearing needs: No Vision needs: Yes Questionnaire PHQ-9 Over the last 2 weeks, how often have you been bothered by any of the following problems? 1. Little interest or pleasure in doing things: several days 2. Feeling down, depressed, or hopeless: several days 3. Trouble falling or staying asleep, or sleeping too much: several days 4. Feeling tired or having little energy: several days 5. Poor appetite or overeating: several days 6. Feeling bad about yourself - or that you are a failure or have let yourself or your family down: not at all 7. Trouble concentrating on things, such as reading the newspaper or watching television: not at all 8. Moving or speaking so slowly that other people could have noticed. Or the opposite - being so fidgety or restless that you have been moving around a lot more than usual: not at all 9. Thoughts that you would be better off or of hurting yourself in some way: not at all Total score: 5 Depression Screening Interpretation: Positive Depression Screening Follow-up: Existing condition, In treatment and Follow-up Visit Requested Depression Screening Done: Yes 41901 - PHQ-9 Billing: Yes Source: Developed by Drs. Tim Manning, Estephanie Newell, Lawrence Moreno and colleagues, with an educational amira from [employer]. Thrive Questionnaire Date Thrive assessed: 01/25/24 I am a: Patient What is your living situation today?: I have a steady place to live Within the past 12 months, did the food you bought not last and you didn't have the money to get more?: Never true Within the past 12 months, did you worry whether your food would run out before you got money to buy more?: Never true Do you have trouble paying for medicines?: No Do you have trouble getting transportation to medical appointments?: No Do you have trouble paying your heating and electricity bill?: No Do you have trouble taking care of your child, family member or friend?: No Do you have trouble with day-to-day activities such as bathing, preparing meals, shopping, managing finances, etc.?: No Are you currently unemployed and looking for a job?: No Are you interested in more education?: No Please select the resources that you would like help with: None Currently or been in a relationship where the following occur: No concerns reported THRIVE Score: 0 AUDIT C Alcohol Use Questionnaire (AUDIT-C) 1. How often do you have a drink containing alcohol?: Never 3. How often do you have six or more drinks on one occasion?: Never Total Score: 0 Score Reviewed/Action Taken: Yes CEDRIC-7 AMB Questionnaire CEDRIC-7 Date CEDRIC - 7 assessed: 01/25/24 Feeling nervous, anxious, or on edge: 0 = Not at all Not being able to stop or control worryin = Not at all Worrying too much about different things: 0 = Not at all Trouble relaxin = Not at all Being so restless that it is hard to sit still: 0 = Not at all Becoming easily annoyed or irritable: 0 = Not at all Feeling afraid as if something awful might happen: 0 = Not at all Total CEDRIC-7 score (0-4 normal; 5-9 mild; 10-14 moderate; 15-21 severe): 0 Source: Developed by Drs. Tim Manning, Estephanie Newell, Lawrence Moreno and colleagues, with an educational amira from [employer]. Review of Systems Const Denies chills, Reports fatigue (chronic), Denies fever(s) and Denies headache(s) ENT Denies dysphagia, Denies dizziness, Denies otalgia, Denies headache(s), Denies neck pain, Denies odynophagia and Denies sore throat Card Denies chest pain, Reports leg edema (on and off bilaterally), Denies palpitations and Reports dyspnea on exertion (mild) Resp Denies chest congestion, Denies cough and Reports dyspnea on exertion (mild) GI Denies abdominal pain, Denies constipation, Denies dysphagia, Denies heartburn, Reports diarrhea (on and off over the past week), Reports nausea (recurrent), Denies odynophagia and Reports vomiting (on and off over the past week) Denies difficulty voiding, Reports nocturia, Denies dysuria and Denies urinary urgency Musc Details: (+) recurrent bilateral leg pain, especially with prolonged walking Reports back pain (over the lower back - chronic but increased since she fell last week), Reports arthralgias (over multiple joints, including the right shoulder recently) and Denies neck pain Skin/Breast Denies rash Neuro Denies dizziness and Denies headache(s) Endo Reports fatigue (chronic) and Denies palpitations Physical exam (Primary Care) Vital Signs: Last Vital Signs Pulse 96 01/25/24 11:27 BP 130/84 01/25/24 11:27 Pulse Ox 96 01/25/24 11:27 Oxygen Delivery Method Room Air 01/25/24 11:27 BMI result Body Mass Index 51.1 Tobacco/Smoking Status: Tobacco use Status Tobacco use date assessed 01/25/24 01/25/24 11:34 Patient Tobacco Use Status Former Tobacco user 01/25/24 11:34 Tobacco use type Cigarette 01/25/24 11:34 e-Cigarette/Vaping Use Never Used 01/25/24 11:34 PHQ-9: PHQ-9 Score PHQ-9: Total score 5 01/28/24 01:32 Depression Screening Interpretation: Positive Depression Screening Follow-up: Existing condition, In treatment and Follow-up Visit Requested Thrive Assessment: Date of Thrive Assessment Date Thrive assessed 01/25/24 01/25/24 11:34 Currently or been in a relationship where the following occur: No concerns reported Const General: no acute distress, alert and tired appearing HENMT Ears: TM's normal bilaterally and EAC's normal Throat: Yes posterior oropharynx normal and Yes tonsils normal (no TP congestion noted) Neck Neck: Yes no lymphadenopathy and Yes supple Thyroid: Thyroid normal Resp Auscultation: clear to auscultation bilaterally, no rales and no wheezes Cardio Rate: regular rate Rhythm: regular rhythm Heart sounds: no murmurs GI Palpation (GI): Soft to palpation, Tenderness to palpation present (GI) (mild diffusely), no guarding, not rigid and No Rebound tenderness present Auscultation: normal bowel sounds General: Yes no CVA tenderness Back/Spine/Pelvis Back: no CVA tenderness Thoracic/Lumbar Spine: lumbar spinal tenderness Skin Rashes: no rashes Extrem General: No no calf tenderness, No clubbing, No cyanosis and Yes edema (2+ bilaterally) Right upper extremity: shoulder/upper arm Details: tenderness Location: of the A-C joint; no swelling Results Reviewed Results Reviewed: Laboratory Tests 01/24/24 01/24/24 08:10 08:11 WBC 10.1 Hgb 14.0 Hct 42.9 Plt Count 291 Sodium 132 L Potassium 4.4 Creatinine 1.23 Estimated GFR 46 Fasting Glucose 495 H* Hemoglobin A1c % 10.8 H Calcium 10.3 H AST 19 ALT 29 Triglycerides 124 Cholesterol 101 LDL Cholesterol, Calc 45 HDL Cholesterol 32 L 25-OH Vitamin D Total 36.1 TSH 3.07 Ur Specific [place] 1.020 Urine Protein Negative Urine Glucose (UA) >=1000 H Urine Blood Moderate (2+) H Urine Nitrite Negative Ur Leukocyte Esterase Negative Microalb/Creat Ratio 16.5 Assessment and Plan Assessment & Plan (1) Spondylolisthesis, lumbar region: Comment: Nevro spinal cord stimulator trial was very effective to treat her pain she reports 90% of the pain relief. She reports up to 100 pain relieve when she is at rest. She reports no pain when she is in the situations when iron her pain was previously bothering her a lot. I will schedule her for implantation of spinal cord stimulator. Another consideration for the Nevro machine is this patient has obstructive sleep apnea and it is very difficult to achieve sedation for wake up during the surgery. With Nevro machine the insertion of the spinal cord stimulator not require awareness in the middle of the case. Code(s): M43.16 - Spondylolisthesis, lumbar region Plan: She has POSTLAMINECTOMY SYNDROME and multilevel degerative disc disease of the lumbar spine and her low back pain has increased significantly since she fell last week She has reportedly responded very well to trial of SCS in the past and was originally scheduled for SCS insertion with Dr. Mckeon under local/epidural anesthesia on 07/10/2022 but procedure was postponed until patient can get her diabetes under better control Patient then decided later on that she would rather not have the procedure done due to concerns about potential failure/side effects and has just been addressing her chronic pain with Oxycodone 5 mg Q 6 hours PRN and Tramadol 50 mg TID PRN A repeat lumbar spine CT done at the ER in September 2023 revealed (+) degenerative disc disease resulting in mild central canal stenosis at L1-L2 and L2-L3 with moderate central canal stenosis at L4-L5. Additionally, there is moderate right and severe left neural foraminal narrowing at L2-L3 and L3-L4, moderate bilateral neural foraminal narrowing at L4-L5 and severe right and moderate left neural foraminal narrowing at L5-S1 She has been seeing neurosurgery in [place] over the years but requested at her last visit to see a different neurosurgeon for a second opinion/further recommendations as she feels that she has exhausted all of her options and there do not seem to be any helpful options left for her - she feels that she has als o failed pain management at the time We [facility] at her last visit and she is currently still waiting for an appointment to be scheduled (2) Diabetes mellitus: Comment: Out of control in the past. Has since been more compliant with medication with better control. 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: with long-term use Diabetes mellitus complication status: with neurologic complications Diabetes mellitus complication detail: with polyneuropathy Qualified Code(s): E11.42 - Type 2 diabetes mellitus with diabetic polyneuropathy; Z79.4 - senior living (current) use of insulin Plan: Her HgbA1c was at 10.8 on her labs done yesterday (in-office HgbA1c was at 10.1% a few months ago and her HgbA1c was reportedly at 13.2% when checked at the office of [facility] back in September 2023) - goal is <7.0% but she was advised to get it to at least 8.0% before orthopedics will consider scheduling her for right shoulder surgery Reinforced diabetic diet Continue Trulicity 4.5 mg SQ once a week, Glipizide ER 10 mg BID and Humalog 200 units in AM, 150 units at lunch and 150 units at dinner Follow-up with [facility] scheduled (3) Pure hypercholesterolemia: Code(s): E78.00 - Pure hypercholesterolemia, unspecified Plan: Results of her labs done yesterday reviewed and discussed with patient - her cholesterol levels are currently still at goal Reinforced low cholesterol diet Continue Atorvastatin 40 mg QD Will recheck her labs and fasting lipids in 3 months for follow up (4) Benign essential hypertension: Code(s): I10 - Essential (primary) hypertension Plan: Reinforced low sodium diet - goal is systolic BP of 120 mm or less She is currently on Lisinopril 5 mg QD and Spironolactone 100 mg BID - we lowered her Lisinopril in half to 5 mg QD at her last visit due to c/o recurrent dizziness (5) Degenerative joint disease of right shoulder: Code(s): M19.011 - Primary osteoarthritis, right shoulder Qualifiers: Osteoarthritis type: primary Qualified Code(s): M19.011 - Primary osteoarthritis, right shoulder Plan: Recent right shoulder MRI revealed (+) high-grade, near full-thickness, partial bursal tear of the supraspinatus tendon with tendinopathies as well as oste oarthritis changes She was advised surgical repair by [facility] but they cannot do her surgery until her diabetes is better controlled and her HgbA1c is down to at least 8.0% or less Follow up with [facility] as scheduled (6) Asthma: Comment: Pulmonary function test in 2017 and office spirometry in February 2022 were normal. But she has had clinical picture of mild intermittent bronchial asthma. Code(s): J45.909 - Unspecified asthma, uncomplicated Qualifiers: Asthma severity: mild Asthma persistence: intermittent Asthma complication type: uncomplicated Qualified Code(s): J45.20 - Mild intermittent asthma, uncomplicated Plan: Continue Symbicort 160-4.5 mg 1 inhalation BID and Albuterol HFA 2 puffs 4 times a day as needed Follow up with pulmonary (Dr. Olmos) as scheduled (7) MATILDA (obstructive sleep apnea): Comment: HAS RATHER VERY SEVERE OBSTRUCTIVE SLEEP APNEA. SHE NEEDS TO BE STARTED ON CPAP THERAPY. SHE IS WELL VERSED WITH CPAP USAGE. She does have past history of using CPAP but had been noncompliant so the CPAP taken away. Now she does promises that she would use the CPAP regularly. SHE WAS NOT ABLE TO COMPLETE THE CPAP TITRATION STUDY BECAUSE SHE COULD NOT JUST SLEEP. I EXPLAINED TO HER THAT SHE DOES NEED CPAP TITRATION IN THE SLEEP LAB BECAUSE SHE HAS NOCTURNAL HYPOXEMIA IN ADDITION TO MATILDA. Code(s): G47.33 - Obstructive sleep apnea (adult) (pediatric) Plan: (+) past history of using CPAP but she had been noncompliant so the CPAP taken away She had a split night study done on 12/11/2023 - baseline study was positive for VERY SEVERE OBSTRUCTIVE SLEEP APNEA with AHI of 79 When CPAP was applied, patient reportedly could not sleep afterwards and the study was terminated prematurely - she states that once she is awake (from her initial sleep), she just cannot go back to sleep, likely related to her anxiety She is willing to go back and attempt repeat study with CPAP titration again as long as she is started on the CPAP right away Follow up with Sleep Medicine as scheduled (8) Chronic constipation: Comment: Continue Senna and Lubiprotone Code(s): K59.09 - Other constipation Plan: Reinforced increased oral fluids and dietary fiber Continue Amitiza 8 mcg BID and Senna 8.6 mg PRN - states that her constipation has been better controlled since she was started on Amitiza by Dr. Redding last year Follow up with GI as scheduled (9) Gastroparesis: Code(s): K31.84 - Gastroparesis Plan: Continue Metoclopramide 10 mg TID PRN Follow up with GI as scheduled (10) GERD (gastroesophageal reflux disease): Comment: Upper GI series done in 2019 came out normal Code(s): K21.9 - Gastro-esophageal reflux disease without esophagitis Qualifiers: Esophagitis presence: without esophagitis Qualified Code(s): K21.9 - Gastro-esophageal reflux disease without esophagitis Plan: Dietary restrictions reinforced Advised that her symptoms may actually be due to her gastroparesis rather than actual reflux disease Continue Omeprazole 20 mg BID (11) Abnormal US (ultrasound) of abdomen: Code(s): R93.5 - Abnormal findings on diagnostic imaging of other abdominal regions, including retroperitoneum Plan: She is scheduled for abdominal and pelvic CT with IV contrast here at [facility] next week for further evaluation She also recently had abdominal CT w/o contrast done at [facility] last week that reportedly showed (+) prominent epigastric and upper retroperitoneal lymph nodes that require further evaluation with contrast CT (12) Vitamin D deficiency: Code(s): E55.9 - Vitamin D deficiency, unspecified Plan: Continue Vitamin D3 2000 units QD (13) Periodic limb movement disorder: Code(s): G47.61 - Periodic limb movement disorder Plan: Continue Pramipexole 1 mg TID (14) Anxiety: Code(s): F41.9 - Anxiety disorder, unspecified Plan: Continue Lorazepam 0.5 mg TID PRN (15) Depression: Code(s): F32.9 - Major depressive disorder, single episode, unspecified Qualifiers: Depression Type: major depressive disorder Major depression recurrence: recurrent Active/Remission status: currently active Major depression episode severity: unspecified Qualified Code(s): F33.9 - Major depressive disorder, recurrent, unspecified Plan: Continue Fluoxetine 10 mg QD Follow-up with Psychiatry as scheduled (16) Morbid obesity with BMI of 50.0-59.9, adult: Comment: Patient i her weight and she is trying to reduce s being followed by Endocrinology service, She is on low carbs diet, and Dulaglutide once a week , trying to reduce her weight. Code(s): E66.01 - Morbid (severe) obesity due to excess calories; Z68.43 - Body mass i ndex [BMI] 50.0-59.9, adult Plan: Reinforced diet; exercise and weight loss are unrealistic given patient's multiple physical issues and comorbidities and poor activity tolerance although she has lost almost 10 pounds since her last visit Plan Follow up in 3 months Orders: Orders Complete Blood Count Auto Diff 3 Months D64.9 - Anemia, unspecified Comprehensive [place]. Panel Fast 3 Months E78.00 - Pure hypercholesterolemia, unspecified Microalbumin, Random (w Creat) 3 Months E11.9 - Type 2 diabetes mellitus without complications UA CC w/rflx Micro + Cult 3 Months R30.0 - Dysuria Vitamin D 25-OH Total 3 Months E55.9 - Vitamin D deficiency, unspecified Lipid Panel 3 Months E78.00 - Pure hypercholesterolemia, unspecified Hemoglobin A1c 3 Months E11.9 - Type 2 diabetes mellitus without complications Vitamin B12 and Folate 3 Months E53.8 - Deficiency of other specified B group vitamins Coding Level of Care Code Est Pt Level 4 (98609) Complex EM visit Add On G2211 Diagnoses Spondylolisthesis, lumbar region M43.16 Type 2 diabetes mellitus with diabetic polyneuropathy, with long-term current use of insulin E11.42; Z79.4 Diabetes mellitus type: type 2 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 Diabetes mellitus complication status: with neurologic complications Diabetes mellitus complication detail: with polyneuropathy Pure hypercholesterolemia E78.00 Benign essential hypertension I10 Primary osteoarthritis of right shoulder M19.011 Osteoarthritis type: primary Mild intermittent asthma without complication J45.20 Asthma severity: mild Asthma persistence: intermittent Asthma complication type: uncomplicated MATILDA (obstructive sleep apnea) G47.33 Chronic constipation K59.09 Gastroparesis K31.84 Gastroesophageal reflux disease without esophagitis K21.9 Esophagitis presence: without esophagitis Abnormal US (ultrasound) of abdomen R93.5 Vitamin D deficiency E55.9 Periodic limb movement disorder G47.61 Anxiety F41.9 Episode of recurrent major depressive disorder, unspecified depression episode severity F33.9 Depression Type: major depressive disorder Major depression recurrence: recurrent Active/Remission status: currently active Major depression episode severity: unspecified Morbid obesity with BMI of 50.0-59.9, adult E66.01; Z68.43
[2024-01-25 11:27] VITALS: BP 130/84; PULSE 96; O2SAT 96; BMI 51.1
== END 2024-01-25 12:07 | disposition home or self-care (01) ==
PROVIDERS: PCP Internal Medicine; Visit Provider Internal Medicine
DX: E11.42 Type 2 diabetes mellitus with diabetic polyneuropathy (principal); Z79.4 Long term (current) use of insulin; E66.01 Morbid (severe) obesity due to excess calories; Z68.43 Body mass index [BMI] 50.0-59.9, adult; F33.9 Major depressive disorder, recurrent, unspecified; M43.16 Spondylolisthesis, lumbar region; E78.00 Pure hypercholesterolemia, unspecified; I10 Essential (primary) hypertension; M19.011 Primary osteoarthritis, right shoulder; J45.20 Mild intermittent asthma, uncomplicated; G47.33 Obstructive sleep apnea (adult) (pediatric)
CPT/HCPCS: 99214; G2211

== ENCOUNTER 2024-01-30 14:27 | Outpatient (REF) | payer OTHER, SELFPAY ==
--- NOTE | ~2024-01-30 | CT_ITS ---
EXAMINATION: CT ABDOMEN AND PELVIS WITHOUT CONTRAST CLINICAL INFORMATION: Abd US showed a 1.8 cm hypoechoic soft tissue nodule adjacent to the pancreatic head possibly representing a lymph node and was not appreciated on the prior exam. Abd CT scan for further evaluation. COMPARISON: Ultrasound abdomen 11/13/2023. CT abdomen and pelvis 05/05/2021. TECHNIQUE: Multidetector volumetric imaging was performed from the superior aspect of the liver through the pubic symphysis. Sagittal and coronal reformatted images were obtained on the technologist's workstation. This CT examination was performed using dose optimization techniques as appropriate, variously including the following: *Automated exposure control. *Adjustment of mA and/or kV according to patient size (this includes techniques or standardized protocols for targeted exams where dose is matched to indication/reason for exam; i.e. extremities or head). *Use of iterative reconstruction technique. DLP: 1103 mGy-cm FINDINGS: LUNG BASES: The visualized lung bases are unremarkable. LIVER, GALLBLADDER, AND BILIARY TREE: The liver is normal in size but with decreased attenuation suggesting hepatic steatosis. There is hypertrophy of the left lobe of the liver with somewhat of a nodular border suggesting possible cirrhosis. No focal hepatic lesion or biliary ductal dilatation is present. The gallbladder is unremarkable with no evidence of radiopaque gallstones, gallbladder wall thickening, or obvious pericholecystic inflammatory changes. PANCREAS: There is fatty replacement of the pancreas. Multiple lymph nodes are seen around the saqib hepatis, periceliac region and pancreatic head and van images of all have been saved. These measure 0.8 cm, 1.1 cm, 1.3 cm, 1.2 cm and 1.6 cm. The largest node is 1.6 cm and unchanged from 202 (3:25 compare prior 5:29). Overall, appearances are quite similar. SPLEEN: Spleen is enlarged at 13.6 cm. ADRENAL GLANDS: Unremarkable. KIDNEYS AND URETERS: The kidneys are normal in size, shape, and attenuation. No hydronephrosis, hydroureter, or calculi seen. No perinephric stranding. BLADDER: Unremarkable. GASTROINTESTINAL TRACT: The small and large bowel are unremarkable. The appendix is not seen but there is no evidence of appendicitis. ABDOMINAL WALL: No significant hernia is appreciated. LYMPH NODES: No retroperitoneal lymphadenopathy. Please see discussion above regarding saqib hepatis, periceliac and peripancreatic nodes. VASCULAR: Calcific atherosclerotic changes are present in the aorta and iliofemoral vessels. There is no evidence of an abdominal aortic aneurysm. PELVIC VISCERA: The uterus and adnexa are unremarkable. OSSEOUS STRUCTURES: Marked degenerative changes are seen at L2-L3 with anterior fusion at L5-S1. CT/CT abdomen pelvis wo IV con IMPRESSION: 1. There is hypertrophy of the left lobe of the liver with somewhat nodular border suggesting cirrhosis. 2. Fatty replacement of the pancreas. 3. Multiple lymph nodes in the saqib hepatis, periceliac and peripancreatic region. These are unchanged when compared to the prior 2020 study. 4. Splenomegaly. 5. Other incidental findings as described above. Fleischner guidelines were followed. Electronically signed by: Edward Alfaro MD 01/30/2024 10:29 PM EDT
[2024-01-30] MEDS: Barium Sulfate Oral (Mocha) 450 ML ORAL.SUSP 900 ML PO (16:56)
== END 2024-01-30 14:28 | disposition home or self-care (01) ==
LOC: HO.CT 14:27
PROVIDERS: PCP Internal Medicine; Visit Provider Internal Medicine Gastroenterology
DX: R93.5 Abnormal findings on diagnostic imaging of other abdominal regions, including retroperitoneum (principal)
CPT/HCPCS: 74176

== ENCOUNTER → 2024-02-03 19:30 | Outpatient (REF) | payer OTHER, SELFPAY | LOC: HO.SL 19:30 | PROVIDERS: PCP Internal Medicine; Visit Provider Internal Medicine | DX: G47.33 Obstructive sleep apnea (adult) (pediatric) (principal); E66.01 Morbid (severe) obesity due to excess calories; Z68.43 Body mass index [BMI] 50.0-59.9, adult; F41.9 Anxiety disorder, unspecified | CPT/HCPCS: 95811 ==

== ENCOUNTER → 2024-02-03 21:31 | Outpatient (BNV) | payer OTHER, SELFPAY | PROVIDERS: PCP Internal Medicine; Visit Provider Internal Medicine | DX: G47.33 Obstructive sleep apnea (adult) (pediatric) (principal) | CPT/HCPCS: 95811 ==

== ENCOUNTER 2024-03-19 14:00 | Outpatient (AMB) | payer OTHER, SELFPAY ==
--- NOTE | 2024-03-19 14:24 | A.OFFVIS_ITS ---
Vital Signs 03/19/24 14:25 Height 5 ft 4 in Weight 311 lb 15.265 oz BMI 53.5 BP 110/72 Blood Pressure Location Lt brachial Position Sitting Pulse 80 Pulse Source Pulse Oximeter Pulse Oximetry (%) 95 Oxygen Delivery Method Room Air Intake Visit Reasons: matilda Intake Note: pt is here for follow up of sleep study, and she had a ct scan in [facility]. Physician Primary Care Sports Medicine Required: No Allergies adhesive tape Allergy (Intermediate, Verified 03/19/24 14:29) Rash empagliflozin [From JARDIANCE] Allergy (Intermediate, Verified 03/19/24 14:29) Rash sitagliptin [From JANUVIA] Adverse Reaction (Severe, Verified 03/19/24 14:29) Rash,nausea, hypoglycemia metformin [METFORMIN] Adverse Reaction (Intermediate, Verified 03/19/24 14:29) Rash, GI upset PFSH Medical History Vitamin D deficiency Degenerative joint disease of right shoulder Restrictive lung disease MATILDA (obstructive sleep apnea) Asthma COPD (chronic obstructive pulmonary disease) Blood dyscrasia Superficial bruising of lower leg Pain and swelling of right lower extremity Morbid obesity with BMI of 50.0-59.9, adult Pure hypercholesterolemia Fatigue Diabetes mellitus Pedal edema Nausea and vomiting Abdominal pain Atypical chest pain On beta kelsey at home Dyspnea on effort Asthma Sleep apnea with use of continuous positive airway pressure (CPAP) HTN (hypertension) Liver cirrhosis Pars defect of lumbar spine Spondylolisthesis, lumbar region Postlaminectomy syndrome, lumbar Spondylosis of lumbar spine Rectal bleeding Fatty pancreas Chronic constipation Cirrhosis of liver without ascites Body mass index [BMI] 50.0-59.9, adult Morbid (severe) obesity due to excess calories Depression Anxiety Insomnia Obstructive sleep apnea Periodic limb movement disorder Neuropathic pain of both feet GERD (gastroesophageal reflux disease) Gastroparesis Lumbar degenerative disc disease Benign essential hypertension Dyslipidemia Diastolic dysfunction Type 2 diabetes mellitus with diabetic autonomic (poly)neuropathy Surgical History H/O colonoscopy History of surgery History of esophagogastroduodenoscopy (EGD) H/O cardiac catheterization (~12/14/17) H/O section History of laryngoscopy (~02/10/19) History of ventral hernia repair (~2008) History of appendectomy History of lumbar discectomy Family History Father Diabetes mellitus Hypertension Mother Diabetes mellitus Hypertension Uterine cancer History of heart attack Social History Housing: Apartment Are you a primary progressive care nurse to a significant other at home: No Do you presently have visiting nurse or other home services: Yes (Home Health Aide, VNA) Alcohol intake: never Patient Tobacco Use Status: Former Tobacco user Tobacco use type: Cigarette Years Smoked: 10 e-Cigarette/Vaping Use: Never Used Second Hand Smoke Exposure: No service: No Current occupational status: disabled Cognitive needs: No Hearing needs: No 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
[2024-03-19 14:25] VITALS: BP 110/72; PULSE 80; O2SAT 95; BMI 53.5
--- NOTE | 2024-03-19 14:40 | A.OFFVIS_ITS ---
Vital Signs 03/19/24 14:25 03/19/24 14:41 Height 5 ft 4 in Weight 311 lb 15.265 oz BMI 53.5 53.5 BP 110/72 Blood Pressure Location Lt brachial Position Sitting Pulse 80 Pulse Source Pulse Oximeter Pulse Oximetry (%) 95 Oxygen Delivery Method Room Air Intake Visit Reasons: jerel Allergies adhesive tape Allergy (Intermediate, Verified 03/19/24 15:08) Rash empagliflozin [From JARDIANCE] Allergy (Intermediate, Verified 03/19/24 15:08) Rash sitagliptin [From JANUVIA] Adverse Reaction (Severe, Verified 03/19/24 15:08) Rash,nausea, hypoglycemia metformin [METFORMIN] Adverse Reaction (Intermediate, Verified 03/19/24 15:08) Rash, GI upset Medication List - Last Reconciled 03/19/24 by Camila Olmos MD [ABSORBANT HEAVY PADS As directed] albuterol sulfate 90 mcg/actuation 2 puffs inhalation Q4-6H PRN 30 days atorvastatin 40 mg PO BEDTIME 90 days bisacodyl (Dulcolax (bisacodyl)) 10 mg (2 x 5 mg) PO ONCE 2 days budesonide-formoterol 160-4.5 mcg/actuation (Symbicort) 2 puffs inhalation BID cholecalciferol (vitamin D3) 50 mcg PO DAILY 90 days clotrimazole-betamethasone 1-0.05 % 1 appl topical BID 2 weeks [DISPOSABLE WIPES As directed] dulaglutide 4.5 mg subcut QWEEK fluoxetine 10 mg PO DAILY fluticasone propionate 50 mcg/actuation 1 spray intranasal DAILY glipizide ER 10 mg PO BID insulin regular hum U-500 conc 200 units in AM, 150 units at lunchtime and 150 units at dinnertime subcutaneously; lisinopril 5 mg PO DAILY 90 days lorazepam 0.5 mg PO TID PRN 30 days lubiprostone 8 mcg PO BID 30 days meloxicam 15 mg PO DAILY PRN 30 days metoclopramide HCl 10 mg PO TID PRN omeprazole 20 mg PO BID oxycodone 5 mg PO Q6-8H PRN 7 days peg 3350-electrolytes 236-22.74-6.74 -5.86 gram 240 mL PO Q10M pramipexole 1 mg PO TID 30 days spironolactone 100 mg PO BID 30 days tramadol Take 1 to 2 tablets orally twice a day as needed for pain PRN; 25 days Do you need a note to return to daycare/school/sports/work: No HPI HPI jerel: Details: This 53 years old female with morbid obesity, is here for follow-up after CPAP titration study. Last time she was not able to go through CPAP titration, and ended the study early. After last visit and full explanation she had agreed to go for full night CPAP titration study, This time she was able to complete the study and did very well with the application of CPAP, titrated from 4 cm on words to 15 cm with good results. Fullface mask was used Today she comes and is quite anxious to get the CPAP device. Breathing is fairly stable. Recently she has been worked up for some nonspecific abdominal pain and after having the CT scan of the abdomen she also had a CT scan of the chest at [facility] she is concerned about the report of 4 mm nodule in left lower lobe and a 4 mm noncalcified nodule in left upper lobe. [facility] Medical History Vitamin D deficiency Degenerative joint disease of right shoulder Restrictive lung disease JEREL (obstructive sleep apnea) Asthma COPD (chronic obstructive pulmonary disease) Blood dyscrasia Superficial bruising of lower leg Pain and swelling of right lower extremity Morbid obesity with BMI of 50.0-59.9, adult Pure hypercholesterolemia Fatigue Diabetes mellitus Pedal edema Nausea and vomiting Abdominal pain Atypical chest pain On beta kelsey at home Dyspnea on effort Asthma Sleep apnea with use of continuous positive airway pressure (CPAP) HTN (hypertension) Liver cirrhosis Pars defect of lumbar spine Spondylolisthesis, lumbar region Postlaminectomy syndrome, lumbar Spondylosis of lumbar spine Rectal bleeding Fatty pancreas Chronic constipation Cirrhosis of liver without ascites Body mass index [BMI] 50.0-59.9, adult Morbid (severe) obesity due to excess calories Depression Anxiety Insomnia Obstructive sleep apnea Periodic limb movement disorder Neuropathic pain of both feet GERD (gastroesophageal reflux disease) Gastroparesis Lumbar degenerative disc disease Benign essential hypertension Dyslipidemia Diastolic dysfunction Type 2 diabetes mellitus with diabetic autonomic (poly)neuropathy Surgical History H/O colonoscopy History of surgery History of esophagogastroduodenoscopy (EGD) H/O cardiac catheterization (~12/14/17) H/O section History of laryngoscopy (~02/10/19) History of ventral hernia repair (~2008) History of appendectomy History of lumbar discectomy Family History Father Diabetes mellitus Hypertension Mother Diabetes mellitus Hypertension Uterine cancer History of heart attack Social History Housing: Apartment Are you a primary healthcare customer service to a significant other at home: No Do you presently have visiting nurse or other home services: Yes (Home Health Aide, VNA) Alcohol intake: never Patient Tobacco Use Status: Former Tobacco user Tobacco use type: Cigarette Years Smoked: 10 e-Cigarette/Vaping Use: Never Used Second Hand Smoke Exposure: No service: No Current occupational status: disabled Cognitive needs: No Hearing needs: No Vision needs: Yes Review of Systems Const All systems reviewed & are unremarkable except as noted in HPI and below Reports snoring Eyes Reports no additional complaints ENT Reports nasal congestion (MILD OFF AND ON) Card Denies chest pain, Denies irregular heart rhythm and Denies leg edema Resp Reports cough, Reports snoring and Reports wheezing (MILD INTERMITTENT WITH CONGESTED FEELING) GI Reports heartburn (CONTROLLED WITH OMEPRAZOLE) Reports no additional complaints Musc Reports back pain Skin/Breast Reports system reviewed and no additional complaints, except as documented Neuro Reports restless legs Psych Reports depression (CONTROLLED WITH MED) Aller/Immun Reports wheezing (MILD INTERMITTENT WITH CONGESTED FEELING) Physical Exam Vital Signs: Last Vital Signs Pulse 80 03/19/24 14:25 BP 110/72 03/19/24 14:25 Pulse Ox 95 03/19/24 14:25 Oxygen Delivery Method Room Air 03/19/24 14:25 BMI result Body Mass Index 53.5 Const General: comfortable, no acute distress, alert and awake Orientation/consciousness: patient oriented x3 HEENT Head: Yes normal to inspection General nose exam: No nasal polyps present and No nasal discharge present Face and sinus: Yes sinuses nontender Mouth: oropharynx normal Throat: No posterior oropharynx normal (NARROW AND CROWDED MALLAMPATI CLASS 4) Eyes General: appearance normal, both eyes and all related structures Neck Neck: Yes normal visual inspection, Yes no lymphadenopathy, Yes trachea midline and Yes no JVD Thyroid: Thyroid normal Chest Chest palpation & inspection: normal inspection of the chest, normal palpation of entire chest wall and no tenderness Resp Other: PERCUSSION NOTE IS NOT PERCEPTIBLE BECAUSE OF THICK CHEST WALL. BREATH SOUNDS ARE DISTANT WITH PROLONGED EXPIRATORY PHASE. SHE DOES NOT HAVE ANY WHEEZES OR CREPITATIONS, BUT BREATH SOUNDS ARE DIMINISHED OVER THE BASILAR AREAS. Cardio Palpation: normal PMI Rate: regular rate Rhythm: regular rhythm Heart sounds: no gallops and no murmurs GI Palpation (GI): Soft to palpation, nontender, No hepatosplenomegaly present and no masses Auscultation: normal bowel sounds Back/Spine/Pelvis Thoracic/Lumbar Spine: thoracic and lumbar spine normal to inspection and thoraco-lumbar ROM limited Skin General skin exam: no rashes or lesions noted Neuro General: patient oriented x3 and no focal motor deficits Cranial nerves: Yes CN's II-XII intact bilaterally Extrem General: Yes normal to inspection, Yes no clubbing, cyanosis or edema and Yes no calf tenderness Psych Speech and movement: Normal speech and movement present Quality Reporting (2019) Adult ([facility] 138//) Body Mass Index: 53.5 Results Reviewed Results Reviewed: CPAP titration study on 02/06/2024 was very successful it she was able to tolerate the fullface mask and all the obstructive events were eliminated with pressure of 15 cm sleep quality definitely improved Assessment & Plan Assessment & Plan (1) Morbid obesity with BMI of 50.0-59.9, adult: Comment: SHE REMAINS GROSSLY OVERWEIGHT. CURRENT BMI 52.6 SHE CLAIMS THAT SHE IS WATCHING DIET AND STARTING TO WALK AND SHE IS TRYING TO LOSE WEIGHT ON HER OWN. BUT STILL HAS NOT SUCCEEDED IN LOSING WEIGHT. Code(s): E66.01 - Morbid (severe) obesity due to excess calories; Z68.43 - Body mass index [BMI] 50.0-59.9, adult Category: Medical Plan: Advised to continue watching the diet and she should aim to lose significant weight (2) COPD (chronic obstructive pulmonary disease): Comment: PATIENT HAS LONG-STANDING HISTORY OF BRONCHIAL ASTHMA. CLINICALLY I THINK SHE HAS DEVELOPED OBSTRUCTIVE BRONCHIAL ASTHMA LEADING TO COPD. PULMONARY FUNCTION TEST SHOWED RESTRICTIVE LUNG DISORDER. Code(s): J44.9 - Chronic obstructive pulmonary disease, unspecified Category: Medical Plan: OK to use Symbicort 160-4.51 inhalation b.i.d.. And ProAir 2 puffs Q 6 hours p.r.n. (3) Asthma: Comment: MILD BRONCHIAL ASTHMA/ COPD OVERLAP SYNDROME. Code(s): J45.909 - Unspecified asthma, uncomplicated Category: Medical Plan: [place]: USE PROAIR 2 PUFFS Q 4-6 HOURS ONLY P.R.N.. MAY USE SYMBICORT 160-4.5 1 INHALATION B.I.D.. (4) JEREL (obstructive sleep apnea): Comment: HAS RATHER VERY SEVERE OBSTRUCTIVE SLEEP APNEA. SHE NEEDS TO BE STARTED ON CPAP THERAPY. SHE IS WELL VERSED WITH CPAP USAGE. CPAP TITRATION STUDY WAS SUCCESSFUL , AND NOW SHE IS EAGER TO START USING THE CPAP Code(s): G47.33 - Obstructive sleep apnea (adult) (pediatric) Category: Medical Plan: ORDERS ARE BEING SENT FOR THE CPAP DEVICE, FULLFACE MASK, AND PRESSURE OF 15 CM. (5) Restrictive lung disease: Comment: Even though her PFT and office spirometry were basically normal, I think she has significant restrictive lung disease due to her morbid obesity. Code(s): J98.4 - Other disorders of lung Category: Medical Plan: She needs to lose weight but is not able to do any exercise and can not join the weight management program. Coding Level of Care Code Est Pt Level 3 (80393) Diagnoses Morbid obesity with BMI of 50.0-59.9, adult E66.01; Z68.43 COPD (chronic obstructive pulmonary disease) J44.9 Asthma J45.909 JEREL (obstructive sleep apnea) G47.33 Restrictive lung disease J98.4
[2024-03-19 14:41] VITALS: BMI 53.5
== END 2024-03-19 14:53 | disposition home or self-care (01) ==
LOC: HO.HPS 14:01
PROVIDERS: PCP Internal Medicine; Visit Provider Internal Medicine
DX: E66.01 Morbid (severe) obesity due to excess calories (principal); Z68.43 Body mass index [BMI] 50.0-59.9, adult; J44.9 Chronic obstructive pulmonary disease, unspecified; J45.909 Unspecified asthma, uncomplicated; G47.33 Obstructive sleep apnea (adult) (pediatric); J98.4 Other disorders of lung
CPT/HCPCS: 99213

== ENCOUNTER → 2024-03-19 14:00 | Outpatient (BNVA) | payer OTHER, SELFPAY | PROVIDERS: PCP Internal Medicine; Visit Provider Internal Medicine | DX: J45.909 Unspecified asthma, uncomplicated (principal); J44.9 Chronic obstructive pulmonary disease, unspecified; J98.4 Other disorders of lung; G47.33 Obstructive sleep apnea (adult) (pediatric); E66.01 Morbid (severe) obesity due to excess calories; Z68.43 Body mass index [BMI] 50.0-59.9, adult | CPT/HCPCS: 99212 ==

== ENCOUNTER 2024-05-01 07:53 | Outpatient (AMB) | payer OTHER, SELFPAY ==
--- NOTE | 2024-05-01 07:56 | A.OFFVIS_ITS ---
Vital Signs 05/01/24 08:10 Height 5 ft 4 in Weight 306 lb BMI 52.5 BP 109/51 L Blood Pressure Location Lt brachial Position Sitting Pulse 81 Intake Visit Reasons: 6 month follow up Intake Note: Patient followup for Chronic Constipation and Abd US and CT scan results. Patient cc: nauseas,b abdominal pain with bloating, acid reflex on and off, between diarrhea and constipation, also patient is having EGD/Colonoscopy procedures but patient said her blood sugar level are too high for the procedures. Hot Die Picker Required: No Accompanied by: Self / Same As Patient Allergies adhesive tape Allergy (Intermediate, Verified 05/01/24 08:00) Rash empagliflozin [From JARDIANCE] Allergy (Intermediate, Verified 05/01/24 08:00) Rash sitagliptin [From JANUVIA] Adverse Reaction (Severe, Verified 05/01/24 08:00) Rash,nausea, hypoglycemia metformin [METFORMIN] Adverse Reaction (Intermediate, Verified 05/01/24 08:00) Rash, GI upset jardiance Allergy (Intermediate, Uncoded 05/01/24 08:02) Rash metformin Allergy (Intermediate, Uncoded 05/01/24 08:02) Rash Medication List - Last Reconciled 05/01/24 by Annika Redding MD [ABSORBANT HEAVY PADS As directed] albuterol sulfate 90 mcg/actuation 2 puffs inhalation Q4-6H PRN 30 days atorvastatin 40 mg PO BEDTIME 90 days bisacodyl (Dulcolax (bisacodyl)) 10 mg (2 x 5 mg) PO ONCE 2 days budesonide-formoterol 160-4.5 mcg/actuation (Symbicort) 2 puffs inhalation BID cholecalciferol (vitamin D3) 50 mcg PO DAILY 90 days clotrimazole-betamethasone 1-0.05 % 1 appl topical BID 2 weeks [DISPOSABLE WIPES As directed] fluoxetine 10 mg PO DAILY fluticasone propionate 50 mcg/actuation 1 spray intranasal DAILY glipizide ER 10 mg PO BID insulin regular hum U-500 conc 200 units in AM, 150 units at lunchtime and 150 units at dinnertime subcutaneously; lisinopril 5 mg PO DAILY 90 days lorazepam 0.5 mg PO TID PRN 30 days lubiprostone 8 mcg PO BID 30 days meloxicam 15 mg PO DAILY PRN 30 days metoclopramide HCl 10 mg PO TID PRN omeprazole 20 mg PO BID oxycodone 5 mg PO Q6-8H PRN 7 days peg 3350-electrolytes 236-22.74-6.74 -5.86 gram 240 mL PO Q10M pramipexole 1 mg PO TID 30 days spironolactone 100 mg PO BID 30 days tirzepatide (Mounjaro) 5 mg subcut QWEEK tramadol Take 1 to 2 tablets orally twice a day as needed for pain PRN; 25 days HPI HPI 6 month follow up: Details: GI CLINIC VISIT FOR THIS 54-YEAR-OLD FEMALE FOR FOLLOW-UP OF: ? 1. Gastroparesis - K31.84 (Primary) ? 2. Slow transit constipation - K59.01 ? 3. Hepatic steatosis - K76.0 ? 4. Past Hepatitis C infection TODAY'S VISIT Patient follow up for GERD, Constipation, and cirrhosis. Patient cc: nauseas, abdominal pain with bloating, acid reflex on and off, between diarrhea and constipation Denies any change in her symptoms. Started Mounjaro 3 weeks ago and took her last injection on 04/28/24 Has lost 6 lbs. Blood sugar was 217 this am. Has to be on a gluten free and potassium free diet due to high potassium levels. She would like to post pone her procedures Brother is in Rehab PAST VISITS: Unable to FU earlier due to other health issues (leg swelling and back pain) Worried about her brother who had a colon resection for severe diverticulosis and had 4 surgeries, has a colostomy bag and still in the hospital x 2 months Son has mental issues. Complains of intermittent rectal bleeding (BRB) twice a week. Not always related to constipation. Also complains of nausea and feels upper part of abdomen is swollen Has intermittent constipation and has a BM once a day Patient cc: fatigue, nauseas, abdominal pain/bloating, acid reflex on and off, and constipation, some dysphagia. Resumed taking Amitiza 8 mg twice a day Has a BM once a day associated with straining. Denies recent rectal bleeding. Continues to have nausea and epigastric burning Continues to have bloating and constipation with intermittent rectal bleeding. Has a BM every other day - hard stools with straining Drinking a lot of water. Also notes dysphagia and nausea Returns after a hiatus of 18 months - has been dealing with other issues. CC: Pt states she has been throwing up a lot and is having trouble eating. She has been feeling nausea and her ribs hurt from gagging. Pains are in the middle of her stomach and in the bottom of the esophagus and she feels as though her food is stuck there and it is not going down. Complains of nausea, vomiting. Notes dysphagia to solid food - feels food is stuck in the middle of the chest. Keeps drinking fluids - feels food is there all day. Continues to have constipation. Feels hungry and unable to eat. Has one BM daily. Unable to go out - Feels sick to the stomach with gagging followed by vomiting - nothing comes up. Has lost weight since she is not able to eat full meals - weighed 291 lbs ?PAST VISIT: Had a temporary implant for back pain and having a permananet implant placement on 10/08/20 ?? ? Continues to have RUQ pain. ?? ? Has had nausea and throwing up a lot. ?? ? She would like to have her back fixed first and then schedule the EGD and Colonoscopy. ?? ? Denies recent rectal bleeding. Notes intermittent rectal bleeding. ? ? ? Annoying pains on the bottom of her left breast. ?? ? Taking Omeprazole and notes increased heartburn than before. ?? ? Unable to eat anything for 2 days and was drinking water. ?? ? Only thing which helped was eileen tea. ?? ? Thinks she may have lost a? few lbs and is unsure. ? ? ? Did not have the colonoscopy since she was afraid - there is a lot going on. ? Uncontrolled blood sugars despite taking Insulin. ? Wakes up with nausea and has intermittent vomiting. ? Has nausea looking at the food. ? ? ? Feels bloated all the time [facility]:?12/17/19 normal CBC 10/06/19 Reviewed - INR 1.1, normal LFTs, Liver Fibrosis score of 0.23, fibrosis stage F0-F1 ?IMAGING STUDIES: 07/2021 Abd US showed: 2 nonmobile echogenic polyps.?Mild hepatic steatosis with enlarged left hepatic lobe. No focal lesion seen. 2021 ABDOMINAL ULTRASOUND SHOWED:? 1. There is generalized increase in hepatic echotexture, consistent ? with fatty infiltration or hepatocellular disease. Please correlate ? clinically. Characteristic pericholecystic sparing favors fatty ? infiltration. No focal hepatic mass or intrahepatic biliary dilatation is seen. ? 2. 4 mm and 3 mm gallbladder polyps are of incidental note. These appear stable from 10/30/2018. ? 3. A simple right renal cyst is of incidental note. ? 2019 Elastography:?[id number] fibrosis stage F2-F3. ENDOSCOPIC PROCEDURES:? 12/28/20 EGD AND COLONOSCOPY SHOWED: ESOPHAGUS: Tortuous esophagus with increased tertiary contractions without stricture ring or varices. STOMACH:? Gastritis with chronic appearing erosion DUODENUM:? Normal - biopsied to check for celiac sprue Colonoscopy Findings:? One large and one small polyps removed Moderate diverticulosis seen in the sigmoid colon Moderate hemorrhoids on retroflexed exam. Plan: Repeat Colonoscopy interval based on path results - in 2 years if polyps are adenomatous and 10 years if polyps are hyperplastic. Above findings were reviewed with the patient and colon polyps and diverticulosis handouts were given in the discharge area 02/12/2018 EGD SHOWED: LARYNX:? Changes of LPRD ESOPHAGUS:? Normal STOMACH:? Gastritis, moderate amount of bile in the stomach Symptoms of nocturnal choking may be due to bile reflux versus delayed gastric emptying. Plan:? Continue pantoprazole medications (Omeprazole at 20 mg PO once daily) [facility] Medical History Vitamin D deficiency Degenerative joint disease of right shoulder Restrictive lung disease MATILDA (obstructive sleep apnea) Asthma COPD (chronic obstructive pulmonary disease) Blood dyscrasia Superficial bruising of lower leg Pain and swelling of right lower extremity Morbid obesity with BMI of 50.0-59.9, adult Pure hypercholesterolemia Fatigue Diabetes mellitus Pedal edema Nausea and vomiting Abdominal pain Atypical chest pain On beta kelsey at home Dyspnea on effort Asthma Sleep apnea with use of continuous positive airway pressure (CPAP) HTN (hypertension) Liver cirrhosis Pars defect of lumbar spine Spondylolisthesis, lumbar region Postlaminectomy syndrome, lumbar Spondylosis of lumbar spine Rectal bleeding Fatty pancreas Chronic constipation Cirrhosis of liver without ascites Body mass index [BMI] 50.0-59.9, adult Morbid (severe) obesity due to excess calories Depression Anxiety Insomnia Obstructive sleep apnea Periodic limb movement disorder Neuropathic pain of both feet GERD (gastroesophageal reflux disease) Gastroparesis Lumbar degenerative disc disease Benign essential hypertension Dyslipidemia Diastolic dysfunction Type 2 diabetes mellitus with diabetic autonomic (poly)neuropathy Surgical History H/O colonoscopy History of surgery History of esophagogastroduodenoscopy (EGD) H/O cardiac catheterization (~12/14/17) H/O section History of laryngoscopy (~02/10/19) History of ventral hernia repair (~2008) History of appendectomy History of lumbar discectomy Family History Father Diabetes mellitus Hypertension Mother Diabetes mellitus Hypertension Uterine cancer History of heart attack Social History Housing: Apartment Are you a primary career development coordinator to a significant other at home: No Do you presently have visiting nurse or other home services: Yes (Home Health Aide, VNA) Alcohol intake: never Patient Tobacco Use Status: Former Tobacco user Tobacco use type: Cigarette Years Smoked: 10 e-Cigarette/Vaping Use: Never Used Second Hand Smoke Exposure: No service: No Current occupational status: disabled Cognitive needs: No Hearing needs: No Vision needs: Yes Review of Systems Const All systems reviewed & are unremarkable except as noted in HPI and below Physical Exam Const General: no acute distress and anxious Nutritional Appearance: obese (morbidly obese) Orientation/consciousness: patient oriented x3 Limitations: no limitations HEENT Head: Yes normal to inspection Ears: hearing grossly normal bilaterally Eyes Sclerae: sclerae normal Pupils: Equal, round and reactive pupils present Neck Neck: Yes normal visual inspection Chest Chest palpation & inspection: normal inspection of the chest Resp Effort & Inspection: normal respiratory effort Auscultation: clear to auscultation bilaterally Cardio Palpation: normal PMI Rate: regular rate Rhythm: regular rhythm Heart sounds: S1 normal heart sound present, S2 normal heart sound present and no murmurs GI Palpation (GI): Soft to palpation, nontender and No hepatosplenomegaly present Auscultation: normal bowel sounds Rectal Exam - Female: deferred Skin General skin exam: no rashes or lesions noted Neuro General: patient oriented x3, gait normal and moves all extremities Cranial nerves: Yes Equal, round and reactive pupils present Psych Appearance: grossly normal Mental Status: mental status grossly normal Assessment & Plan Assessment & Plan (1) Gastroparesis: Code(s): K31.84 - Gastroparesis Category: Medical (2) GERD (gastroesophageal reflux disease): Comment: Upper GI series done in 2019 came out normal Code(s): K21.9 - Gastro-esophageal reflux disease without esophagitis Category: Medical Qualifiers: Esophagitis presence: without esophagitis Qualified Code(s): K21.9 - Gastro-esophageal reflux disease without esophagitis (3) Chronic constipation: Comment: Continue Senna and Lubiprotone Code(s): K59.09 - Other constipation Category: Medical (4) Rectal bleeding: Comment: Likely from hemorrhoids Code(s): K62.5 - Hemorrhage of anus and rectum Category: Medical (5) Liver cirrhosis: Comment: Hepatic steatosis complicated by suspected compensated cirrhosis likely related to a combination of obesity and past hepatitis C infection. Patient expressed concern regarding progressive liver disease. She was advised weight reduction since she is not interested in bariatric surgery at present Code(s): K74.60 - Unspecified cirrhosis of liver Category: Medical (6) RUQ abdominal pain: Code(s): R10.11 - Right upper quadrant pain Category: Medical (7) Epigastric pain: Code(s): R10.13 - Epigastric pain Category: Medical (8) Gallbladder polyp: Code(s): K82.4 - Cholesterolosis of gallbladder Category: Medical Plan 54 YF with LVH, moderate, echo 03/03 with normal LV systolic function, DM 2 - Diabetes mellitus type 2, HTN - Hypertension, Hepatic Steatosis/Fatty Liver, RLL nodule - 05/[address], MATILDA followed in GI for hepatic steatosis with cirrhosis on elastography (normal LFTs). Patient also complains of dysphagia, decreased appetite, early satiety, nausea and vomiting likely due to diabetic gastroparesis - confirmed on gastric emptying study. She has chronic constipation most likely slow transit constipation due to long- standing diabetes, use of pain medication and adhesions from past surgeries. Patient was advised to increase senna to 2 tablets twice daily for constipation. ? She has been taking? Amitiza twice daily with partial relief.? EGD and colonoscopy was performed in 12/2020 and findings as noted above. Repeat colonoscopy in 6 months to FU on large TV adenoma at 60 cms. Patient was advised to continue metoclopramide 10 mg 3 times daily for gastroparesis and constipation and add Mirtazepine 7.5 mg at bedtime 08/04/22 Resume lubiprostone 8 mg twice daily and schedule an appt for an EGD (GERD and Dysphagia) and Colonoscopy (FU of colon polyps) in Sep, 2022 EGD and colon scheduled on 02/16/23 and had to be cancelled pending cardiology workup 11/01/23 Complains of intermittent rectal bleeding (BRB) twice a week. Not always related to constipation. Also complains of nausea and feels upper part of abdomen is swollen Has intermittent constipation and has a BM once a day 05/01/24 Patient is scheduled for an upper endoscopy (abd pain, GERD, gastroparesis) and colonoscopy (FU of colon polyps) on 05/02/24 She would like to postpone - aware she will need to wait 5-6 months for her appt Also she did not hold Mounjaro for a week Advised to increase Lubiprotone to 16 mcg twice daily for constipation. FU in 3 months Medications: Changed From lubiprostone 8 mcg PO BID 30 days 60 caps 2RF K59.09 - Other constipation To lubiprostone 16 mcg (2 x 8 mcg) PO BID 30 days 120 caps 2RF K59.09 - Other constipation Coding Level of Care Code Est Pt Level 4 (98462) Diagnoses Gastroparesis K31.84 Gastroesophageal reflux disease without esophagitis K21.9 Esophagitis presence: without esophagitis Chronic constipation K59.09 Rectal bleeding K62.5 Liver cirrhosis K74.60 RUQ abdominal pain R10.11 Epigastric pain R10.13 Gallbladder polyp K82.4 Time Spent (min) 23
[2024-05-01 08:10] VITALS: BP 109/51; PULSE 81; BMI 52.5
== END 2024-05-01 08:31 | disposition home or self-care (01) ==
PROVIDERS: PCP Internal Medicine; Visit Provider Internal Medicine Gastroenterology
DX: K31.84 Gastroparesis (principal); K21.9 Gastro-esophageal reflux disease without esophagitis; K59.09 Other constipation; K62.5 Hemorrhage of anus and rectum; K74.60 Unspecified cirrhosis of liver; R10.11 Right upper quadrant pain; R10.13 Epigastric pain; K82.4 Cholesterolosis of gallbladder
CPT/HCPCS: 99214

== ENCOUNTER → 2024-05-01 07:53 | Outpatient (BNVA) | payer OTHER, SELFPAY | PROVIDERS: PCP Internal Medicine; Visit Provider Internal Medicine Gastroenterology | DX: K31.84 Gastroparesis (principal); K21.9 Gastro-esophageal reflux disease without esophagitis; K59.09 Other constipation; K62.5 Hemorrhage of anus and rectum; K74.60 Unspecified cirrhosis of liver; K82.4 Cholesterolosis of gallbladder; R10.11 Right upper quadrant pain; R10.13 Epigastric pain | CPT/HCPCS: 99212 ==

== ENCOUNTER 2024-05-12 12:40 | Outpatient (AMB) | payer OTHER, SELFPAY ==
[2024-05-12 12:48] VITALS: BP 126/80; PULSE 93; O2SAT 95; BMI 47.9
--- NOTE | 2024-05-12 12:48 | MHC.PC.OV ---
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 Required: No Accompanied by: Self / Same As Patient Allergies adhesive tape Allergy (Intermediate, Verified 05/12/24 13:10) Rash empagliflozin [From JARDIANCE] Allergy (Intermediate, Verified 05/12/24 13:10) Rash sitagliptin [From JANUVIA] Adverse Reaction (Severe, Verified 05/12/24 13:10) Rash,nausea, hypoglycemia metformin [METFORMIN] Adverse Reaction (Intermediate, Verified 05/12/24 13:10) Rash, GI upset jardiance Allergy (Intermediate, Uncoded 05/12/24 13:10) Rash metformin Allergy (Intermediate, Uncoded 05/12/24 13:10) Rash Medication List - Last Reconciled 05/12/24 by THEA Reis [ABSORBANT HEAVY PADS As directed] albuterol sulfate 90 mcg/actuation 2 puffs inhalation Q4-6H PRN 30 days atorvastatin 40 mg PO BEDTIME 90 days azithromycin For 250 mg dose pack: take 500 mg today (day 1), then 250 mg for 4 days (days 2-5) PO bisacodyl (Dulcolax (bisacodyl)) 10 mg (2 x 5 mg) PO ONCE 2 days budesonide-formoterol 160-4.5 mcg/actuation (Symbicort) 2 puffs inhalation BID cholecalciferol (vitamin D3) 50 mcg PO DAILY 90 days clotrimazole-betamethasone 1-0.05 % 1 appl topical BID 2 weeks [DISPOSABLE WIPES As directed] fluoxetine 10 mg PO DAILY fluticasone propionate 50 mcg/actuation 1 spray intranasal DAILY glipizide ER 10 mg PO BID insulin regular hum U-500 conc 200 units in AM, 150 units at lunchtime and 150 units at dinnertime subcutaneously; lisinopril 5 mg PO DAILY 90 days lorazepam 0.5 mg PO TID PRN 30 days lubiprostone 16 mcg (2 x 8 mcg) PO BID 30 days meloxicam 15 mg PO DAILY PRN 30 days metoclopramide HCl 10 mg PO TID PRN omeprazole 20 mg PO BID oxycodone 5 mg PO Q6-8H PRN 7 days peg 3350-electrolytes 236-22.74-6.74 -5.86 gram 240 mL PO Q10M pramipexole 1 mg PO TID 30 days spironolactone 100 mg PO BID 30 days tirzepatide (Mounjaro) 5 mg subcut QWEEK tramadol Take 1 to 2 tablets orally twice a day as needed for pain PRN; 25 days Tobacco use date assessed: 05/12/24 Dental Screening Dental Screen Date: 05/12/24 Did you have a dental visit in the last 12 months?: No Did you have a dental problem in the last 6 months where you did not have access to dental care?: No Was dental information given to patient?: No HPI 3 month follow up HPI Details The patient is a 54-year-old female with past significant medical history of COPD, asthma, degenerative joint these, MATILDA, and diabetes. The patient is presenting today for a follow-up. She reports a 5 day history of cold symptoms. She reports that it started with a runny nose and and then after a nonproductive cough. She reports 2 days of feeling chilled but denies fever She reports that coughing cause her to have rib pain, and shortness of breaths. She denies chest pain, heart palpitation, and dizziness. She will reports that she continues to be constipated. She does not have a bowel movement everyday but at least every other day. She reports that her stool comes out hard. She reports that she lives with her back pain and takes her pain medication when she can't tolerated it. She reports that she was supposed to have surgery but her sugars have been not a controlled Initially, they placed her surgery and hold but then she changed her mind about having it done. FORMERLY [facility] Medical History Vitamin D deficiency Degenerative joint disease of right shoulder Restrictive lung disease MATILDA (obstructive sleep apnea) Asthma COPD (chronic obstructive pulmonary disease) Blood dyscrasia Superficial bruising of lower leg Pain and swelling of right lower extremity Morbid obesity with BMI of 50.0-59.9, adult Pure hypercholesterolemia Fatigue Diabetes mellitus Pedal edema Nausea and vomiting Abdominal pain Atypical chest pain On beta kelsey at home Dyspnea on effort Asthma Sleep apnea with use of continuous positive airway pressure (CPAP) HTN (hypertension) Liver cirrhosis Pars defect of lumbar spine Spondylolisthesis, lumbar region Postlaminectomy syndrome, lumbar Spondylosis of lumbar spine Rectal bleeding Fatty pancreas Chronic constipation Cirrhosis of liver without ascites Body mass index [BMI] 50.0-59.9, adult Morbid (severe) obesity due to excess calories Depression Anxiety Insomnia Obstructive sleep apnea Periodic limb movement disorder Neuropathic pain of both feet GERD (gastroesophageal reflux disease) Gastroparesis Lumbar degenerative disc disease Benign essential hypertension Dyslipidemia Diastolic dysfunction Type 2 diabetes mellitus with diabetic autonomic (poly)neuropathy Surgical History H/O colonoscopy History of surgery History of esophagogastroduodenoscopy (EGD) H/O cardiac catheterization (~12/14/17) H/O section History of laryngoscopy (~02/10/19) History of ventral hernia repair (~2008) History of appendectomy History of lumbar discectomy Family History Father Diabetes mellitus Hypertension Mother Diabetes mellitus Hypertension Uterine cancer History of heart attack Social History Housing: Apartment Are you a primary career specialist to a significant other at home: No Do you presently have visiting nurse or other home services: Yes (Home Health Aide, VNA) Alcohol intake: never Patient Tobacco Use Status: Former Tobacco user Tobacco use type: Cigarette Years Smoked: 10 e-Cigarette/Vaping Use: Never Used Second Hand Smoke Exposure: No service: No Current occupational status: disabled Cognitive needs: No Hearing needs: No Vision needs: Yes Questionnaire PHQ-9 Over the last 2 weeks, how often have you been bothered by any of the following problems? 1. Little interest or pleasure in doing things: several days 2. Feeling down, depressed, or hopeless: several days 3. Trouble falling or staying asleep, or sleeping too much: several days 4. Feeling tired or having little energy: several days 5. Poor appetite or overeating: several days 6. Feeling bad about yourself - or that you are a failure or have let yourself or your family down: not at all 7. Trouble concentrating on things, such as reading the newspaper or watching television: not at all 8. Moving or speaking so slowly that other people could have noticed. Or the opposite - being so fidgety or restless that you have been moving around a lot more than usual: not at all 9. Thoughts that you would be better off or of hurting yourself in some way: not at all Total score: 5 Depression Screening Interpretation: Positive Depression Screening Follow-up: Existing condition, In treatment and Follow-up Visit Requested Depression Screening Done: Yes 86768 - PHQ-9 Billing: Yes Source: Developed by Drs. Tim Manning, Estephanie Newell, Lawrence Moreno and colleagues, with an educational amira from [employer]. Thrive Questionnaire Date Thrive assessed: 05/12/24 I am a: Patient What is your living situation today?: I have a steady place to live Within the past 12 months, did the food you bought not last and you didn't have the money to get more?: Never true Within the past 12 months, did you worry whether your food would run out before you got money to buy more?: Never true Do you have trouble paying for medicines?: No Do you have trouble getting transportation to medical appointments?: No Do you have trouble paying your heating and electricity bill?: No Do you have trouble taking care of your child, family member or friend?: No Do you have trouble with day-to-day activities such as bathing, preparing meals, shopping, managing finances, etc.?: No Are you currently unemployed and looking for a job?: No Are you interested in more education?: No Please select the resources that you would like help with: None Currently or been in a relationship where the following occur: No concerns reported THRIVE Score: 0 AUDIT C Alcohol Use Questionnaire (AUDIT-C) 1. How often do you have a drink containing alcohol?: Never 3. How often do you have six or more drinks on one occasion?: Never Total Score: 0 Score Reviewed/Action Taken: Yes CEDRIC-7 AMB Questionnaire CEDRIC-7 Date CEDRIC - 7 assessed: 05/12/24 Feeling nervous, anxious, or on edge: 0 = Not at all Not being able to stop or control worryin = Not at all Worrying too much about different things: 0 = Not at all Trouble relaxin = Not at all Being so restless that it is hard to sit still: 0 = Not at all Becoming easily annoyed or irritable: 0 = Not at all Feeling afraid as if something awful might happen: 0 = Not at all Total CEDRIC-7 score (0-4 normal; 5-9 mild; 10-14 moderate; 15-21 severe): 0 Source: Developed by Drs. Tim Manning, Estephanie Newell, Lawrence Moreno and colleagues, with an educational amira from [employer]. CEDRIC-7 Assessment Billing CEDRIC-7 Assessment Tool: CEDRIC-7 Assessment 14487 Review of Systems Const Details: Const Denies chills, Denies fatigue, Denies fever(s), Denies headache(s) and Denies weakness ENT Denies dizziness and Denies headache(s) reports a 5 day history of sneezing Card Denies chest pain, Denies lightheadedness, Denies other (Palpitations) Resp reports 5 day hs of non-productive cough, reports 4 day hx of dyspnea, Denies wheezing GI Denies abdominal pain, Denies melena, Denies hematochezia, Denies change in bowel habits,reports dyspepsia at time and Denies nausea, reports constipation Denies hematuria and Denies dysuria Musc Denies abnormal gait, reports chronic lower back pain Skin/Breast Denies rash, Denies unusual bruising and Denies wounds Neuro Denies abnormal gait, Denies dizziness, Denies headache(s), Denies memory loss, Denies tingling and Denies weakness, reports numbness in bilateral feet Psych Reports anxiety, reports depression, Denies memory loss Endo Denies cold intolerance, Denies fatigue, Denies heat intolerance, reports polydipsia and reports polyuria Aller/Immun Denies wheezing Physical exam (Primary Care) Vital Signs: Last Vital Signs Pulse 93 05/12/24 12:48 BP 126/80 05/12/24 12:48 Pulse Ox 95 05/12/24 12:48 Oxygen Delivery Method Room Air 05/12/24 12:48 BMI result Body Mass Index 47.9 Tobacco/Smoking Status: Tobacco use Status Tobacco use date assessed 05/12/24 05/12/24 12:55 Patient Tobacco Use Status Former Tobacco user 05/12/24 12:55 Tobacco use type Cigarette 05/12/24 12:55 e-Cigarette/Vaping Use Never Used 05/12/24 12:55 PHQ-9: PHQ-9 Score PHQ-9: Total score 5 05/12/24 13:12 Depression Screening Interpretation: Positive Depression Screening Follow-up: Existing condition, In treatment and Follow-up Visit Requested Thrive Assessment: Date of Thrive Assessment Date Thrive assessed 05/12/24 05/12/24 12:55 Currently or been in a relationship where the following occur: No concerns reported Const Other: General: no acute distress and well developed Nutritional Appearance: well nourished Orientation/consciousness: patient oriented x3 HENTN Head: Yes normocephalic and Yes atraumatic Eyes General: appearance normal, both eyes and all related structures Pupils: Equal, round and reactive pupils present EOM: EOMs intact bilaterally Resp Effort & Inspection: use of accessory muscles Auscultation: breath sounds diminished/tight throughout lung field bilaterally, +occasional nonproductive congestive cough Cardio Rate: regular rate Rhythm: regular rhythm Heart sounds: S1 normal heart sound present, S2 normal heart sound present, no gallops, no murmurs and no rubs GI Palpation (GI): No Abdominal aortic bruit present, Soft to palpation, tender in LUQ with deep palpaton, No hepatosplenomegaly present and No Rebound tenderness present Auscultation: normal bowel sounds General: Yes no CVA tenderness Back/Spine/Pelvis Back: no CVA tenderness Cervical Spine: cervical ROM normal and No Cervical spine tenderness Thoracic/Lumbar Spine:+LOWER back pain Extrem General: Yes normal to inspection, No edema and No calf tenderness Skin General: warm and dry. Normal skin color. Normal skin turgor Lesions: no lesions Rashes: no rashes Trauma: no lacerations or abrasions Wounds: no wounds Nails: normal Neuro General: patient oriented x3, gait normal and no focal neuro deficit Cranial nerves: Yes Equal, round and reactive pupils present Cognition (Neuro): normal cognition Gait exam (Neuro): Normal gait present Sensory Exam: No Sensory deficit (Neuro) Psych Appearance: grossly normal Affect: normal affect Attitude: cooperative Thought process: Normal thought process present Office Procedures Nebulizer Treatment Nebulizer Treatment [id number]/MDI RX initial, or Nebulizer Subsequent Treatment Results AMB Hemoglobin A1c AMB Hemoglobin A1c 10.7 % Last Edit by HAM Mon on 05/12/24 13:12 Results Reviewed Results Reviewed: Laboratory Last Values Hgb A1c (Clinic) 10.7 % (4.0-6.0) H 05/12/24 13:11 Laboratory Tests 05/12/24 13:11 Hgb A1c (Clinic) 10.7 H Coding Level of Care Code Est Pt Level 4 (61879) Diagnoses Chronic obstructive pulmonary disease with acute exacerbation J44.1 COPD type: COPD with acute exacerbation Moderate persistent asthma with acute exacerbation J45.41 Asthma severity: moderate Asthma persistence: persistent Asthma complication type: with acute exacerbation Pure hypercholesterolemia E78.00 Type 2 diabetes mellitus with diabetic polyneuropathy, with long-term current use of insulin E11.42; Z79.4 Diabetes mellitus complication detail: with polyneuropathy Diabetes mellitus complication status: with neurologic complications Diabetes mellitus exterminator helper insulin use: with exterminator helper use Diabetes mellitus type: type 2 Benign essential hypertension I10 Spondylolisthesis, lumbar region M43.16 Chronic constipation K59.09 Gastroesophageal reflux disease without esophagitis K21.9 Esophagitis presence: without esophagitis Neuropathic pain of both feet G57.93 Vitamin D deficiency E55.9 Anxiety F41.9 Episode of recurrent major depressive disorder, unspecified depression episode severity F33.9 Active/Remission status: currently active Depression Type: major depressive disorder Major depression episode severity: unspecified Major depression recurrence: recurrent Morbid obesity with BMI of 50.0-59.9, adult E66.01; Z68.43 CPT Codes Nebulizer Treatment - Nebulizer Treatment, initial or subsequent: [id number]/MDI RX initial, or Nebulizer Subsequent Treatment ([id number]) Additional Codes CEDRIC-7 Assessment Billing - CEDRIC-7 Assessment Tool: CEDRIC-7 Assessment 64259 ([id number]) PHQ-9 - 31395 - PHQ-9 Billing: Yes ([id number]) Assessment & Plan Assessment & Plan (1) COPD (chronic obstructive pulmonary disease): Comment: PATIENT HAS LONG-STANDING HISTORY OF BRONCHIAL ASTHMA. CLINICALLY I THINK SHE HAS DEVELOPED OBSTRUCTIVE BRONCHIAL ASTHMA LEADING TO COPD. PULMONARY FUNCTION TEST NIECY WED RESTRICTIVE LUNG DISORDER. Code(s): J44.9 - Chronic obstructive pulmonary disease, unspecified Category: Medical Qualifiers: COPD type: COPD with acute exacerbation Qualified Code(s): J44.1 - Chronic obstructive pulmonary disease with (acute) exacerbation Plan: The patient has a longstanding history of bronchial asthma. Clinically I think she has developed obstructive bronchial asthma leading to COPD. The patient presented with difficulty breathing, positive use of accessory muscle. She reported a 5 day history of runny nose and nonproductive cough followed by dyspnea. Breath sounds diminished in all lung zaragoza-oxygen saturation 93% on room air. Nebulizer treatment done in office with positive effect and azithromycin ordered. Consider starting this patient on prednisone tapered. However, the patient was concerned about trying to get her blood sugars under control. The patient was educated on going to the ER if her breathing does not get better or worsens. The patient verbalized understanding. Patient was also encouraged to start using her CPAP more consistently. Per patient, her cough makes it difficult to wear a CPAP. Tessalon Perles were offered but the patient declined. Continue Symbicort two puffs inhalation b.i.d. Three-month follow or sooner for any concerns. (2) Asthma: Comment: MILD BRONCHIAL ASTHMA/ COPD OVERLAP SYNDROME. Code(s): J45.909 - Unspecified asthma, uncomplicated Category: Medical Qualifiers: Asthma severity: moderate Asthma persistence: persistent Asthma complication type: with acute exacerbation Qualified Code(s): J45.41 - Moderate persistent asthma with (acute) exacerbation Plan: Continue albuterol sulfate 90 mcg/actuation 2 puffs inhalation Q 4 to q.6 p.r.n. Follow up in 3 months or sooner for any concerns. (3) Pure hypercholesterolemia: Code(s): E78.00 - Pure hypercholesterolemia, unspecified Category: Medical Plan: The patient was unable to do lab that was ordered to be done prior to this appointment She was encouraged to get blood work done as soon as possible. Continue Atorvastatin 40 mg p.o. at bedtime (4) Diabetes mellitus: Comment: Out of control in the past. Has since been more compliant with medication with better control. BS today 171 Code(s): E11.9 - Type 2 diabetes mellitus without complications Category: Medical Qualifiers: Diabetes mellitus complication detail: with polyneuropathy Diabetes mellitus complication status: with neurologic complications Diabetes mellitus exterminator helper insulin use: with exterminator helper use Diabetes mellitus type: type 2 Qualified Code(s): E11.42 - Type 2 diabetes mellitus with diabetic polyneuropathy; Z79.4 - termite technician (current) use of insulin Plan: The patient A1c was 10.7 in office today. She is currently taking glipizide 10 mg b.i.d, Mounjaro 5 mg s.c q/week, and on regular insulin U 500 conc 200 units in a.m., 150 units at lunchtime and at dinnertime. Patient reports that at time that she has been having some low blood sugars as low as 57 in the evening time and has been giving herself less units at lunchtime and dinnertime as well. She reports that she expressed this to endocrine and they told her it was okay to withhold her insulin if her sugars are dropping. Reports that she has a upcoming appointment with [facility] but she can not remember the date. The patient was encouraged to call and make sure of the date and to make sure she goes to that appointment. We will follow up in 3 months and the patient was encouraged to follow-up sooner for any concerns. (5) Benign essential hypertension: Code(s): I10 - Essential (primary) hypertension Category: Medical Plan: The patient's systolic goal is 120mm or less, which was slightly higher today 126/80 Given that the patient was having mild dyspnea, we will continue lisinopril 5 mg daily Reinforced DASH diet Follow-up in 3 months (6) Spondylolisthesis, lumbar region: Comment: Nevro spinal cord stimulator trial was very effective to treat her pain she reports 90% of the pain relief. She reports up to 100 pain relieve when she is at rest. She reports no pain when she is in the situations when iron her pain was previously bothering her a lot. I will schedule her for implantation of spinal cord stimulator. Another consideration for the Nevro machine is this patient has obstructive sleep apnea and it is very difficult to achieve sedation for wake up during the surgery. With Nevro machine the insertion of the spinal cord stimulator not require awareness in the middle of the case. Code(s): M43.16 - Spondylolisthesis, lumbar region Category: Medical Plan: Continues oxycodone 5 mg q6 hours as needed, meloxicam 15 mg daily p.r.n. and tramadol 1-2 tabs p.r.n. twice a day. The patient is hopeful that if she lose some weight her pain we will be more controlled. At this time, she has decided against surgical intervention. (7) Chronic constipation: Comment: Continue Senna and Lubiprotone Code(s): K59.09 - Other constipation Category: Medical Plan: Reports that she is still having hard stool. She is having a bowel movement at least every other day. She does not think she has any senna tabs, so she has been taking the lubiprostone 16 mcg and metoclopramide 10 TID prn. Senna tabs sent to the pharmacy and the patient was encouraged to start taking this. Fluids and activity as tolerated was also encouraged. (8) GERD (gastroesophageal reflux disease): Comment: Upper GI series done in 2019 came out normal Code(s): K21.9 - Gastro-esophageal reflux disease without esophagitis Category: Medical Qualifiers: Esophagitis presence: without esophagitis Qualified Code(s): K21.9 - Gastro-esophageal reflux disease without esophagitis Plan: Patient reports that she rarely has heartburns-she has been avoiding triggering foods. Continue omeprazole 20 mg b.i.d. 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 Continue pramipexole 1 mg t.i.d. (10) Vitamin D deficiency: Code(s): E55.9 - Vitamin D deficiency, unspecified Category: Medical Plan: The patient was encouraged to get her labs done soon as possible. We will advise upon completion/resulted (11) Anxiety: Code(s): F41.9 - Anxiety disorder, unspecified Category: Medical Plan: She that her mood has been stable. Reports that she sees her therapist weekly. Denies SI/HI Continue lorazepam 0.5 mg t.i.d. p.r.n. Follow up with psychotherapy per scheduled/as needed. (12) Depression: Code(s): F32.9 - Major depressive disorder, single episode, unspecified Category: Medical Qualifiers: Active/Remission status: currently active Depression Type: major depressive disorder Major depression episode severity: unspecified Major depression recurrence: recurrent Qualified Code(s): F33.9 - Major depressive disorder, recurrent, unspecified Plan: Reports that her mood has been stable. Reports that she sees her therapist weekly. Denies SI/HI Continue fluoxetine 10 mg daily Follow up with psychotherapy as needed/scheduled (13) Morbid obesity with BMI of 50.0-59.9, adult: Comment: SHE REMAINS GROSSLY OVERWEIGHT. CURRENT BMI 52.6 SHE CLAIMS THAT SHE IS WATCHING DIET AND STARTING TO WALK AND SHE IS TRYING TO LOSE WEIGHT ON HER OWN. BUT STILL HAS NOT SUCCEEDED IN LOSING WEIGHT. Code(s): E66.01 - Morbid (severe) obesity due to excess calories; Z68.43 - Body mass index [BMI] 50.0-59.9, adult Category: Medical Plan: Patient weight today was same as last visit. She reported that she started on Mounjaro 3 weeks ago and her appetite has decreased so she is hopeful. Reinforced low-cholesterol diet/activity as tolerated. Plan Follow up in 3 months Orders: Orders AMB Hemoglobin A1c 05/12/24 Z13.9 - Encounter for screening, unspecified Medications: New azithromycin For 250 mg dose pack: take 500 mg today (day 1), then 250 mg for 4 days (days 2-5) PO 6 tabs 0RF sennosides (Black-Draught Lax-Senna) 8.6 mg PO BID 60 tabs 0RF
== END 2024-05-12 13:52 | disposition home or self-care (01) ==
PROVIDERS: PCP Internal Medicine
DX: Z13.9 Encounter for screening, unspecified (principal)

== ENCOUNTER → 2024-05-12 12:40 | Outpatient (BNVA) | payer OTHER, SELFPAY | PROVIDERS: PCP Internal Medicine | DX: J44.1 Chronic obstructive pulmonary disease with (acute) exacerbation (principal); J45.41 Moderate persistent asthma with (acute) exacerbation; E78.00 Pure hypercholesterolemia, unspecified; E11.42 Type 2 diabetes mellitus with diabetic polyneuropathy; Z79.4 Long term (current) use of insulin; I10 Essential (primary) hypertension; M43.16 Spondylolisthesis, lumbar region; K21.9 Gastro-esophageal reflux disease without esophagitis; K59.09 Other constipation; G57.93 Unspecified mononeuropathy of bilateral lower limbs; E55.9 Vitamin D deficiency, unspecified; F41.9 Anxiety disorder, unspecified; F33.9 Major depressive disorder, recurrent, unspecified; E66.01 Morbid (severe) obesity due to excess calories; Z68.43 Body mass index [BMI] 50.0-59.9, adult; Z71.3 Dietary counseling and surveillance | CPT/HCPCS: 83036; 94640; 96127; 99212 ==

== ENCOUNTER 2024-05-30 13:23 | Outpatient (REF) | payer OTHER, SELFPAY ==
[2024-05-30 13:39] LABS: MANUAL DIFF FLAG NO
[2024-05-30 13:50] LABS: Basophils Absolute Auto 0.1 X10*3/uL (0.0-0.2); Basophils Percent Auto 0.6 % (0-2); Eosinophils Absolute Auto 0.5 X10*3/uL (0.0-0.4); Eosinophils Percent Auto 4.8 % (0-4); Hematocrit 40.7 % (37.0-47.0); Hemoglobin 13.8 g/dl (12.0-16.0); Imm Gran Abs Auto 0.06 X10*3/uL (0.00-0.03); Imm Gran Pct Auto 0.5 % (0.0-0.4); Lymphocytes Absolute Auto 2.7 X10*3/uL (1.2-4.9); Lymphocytes Percent Auto 23.7 % (20-40); Mean Corpuscular HGB Conc 33.9 g/dl (31.0-35.0); Mean Corpuscular Hemoglobin 28.9 pg (27.0-33.0); Mean Corpuscular Volume 85.1 fL (80.0-98.0); Mean Platelet Volume 10.6 fL (9.4-12.3); Monocytes Absolute Auto 0.7 X10*3/uL (0.1-1.2); Monocytes Percent Auto 5.8 % (2-11); Neutrophils Absolute Auto 7.2 x10*3/uL (2.0-8.3); Neutrophils Percent Auto 64.6 % (45-73); Platelet Count 252 X10*3/uL (160-400); Red Blood Count 4.78 X10*6/uL (4.20-5.50); Red Cell Distribution Width 13.3 % (11.0-16.0); White Blood Count 11.2 X10*3/uL (4.8-10.8)
[2024-05-30 13:58] LABS: Estimated Average Glucose 252 mg/dL; Hemoglobin A1C 322.9641 umol/L; Hemoglobin A1c % 10.4 % (<6.0)
[2024-05-30 14:26] LABS: Alanine Aminotransferase 27 U/L (0-31); Albumin Level 3.9 g/dL (3.5-5.0); Alkaline Phosphatase 80 U/L (39-117); Anion Gap 12 (12-20); Aspartate Amino Transferase 25 U/L (5-31); Bilirubin Total 0.5 mg/dL (0.0-1.0); Blood Urea Nitrogen 16 mg/dL (9-16); Calcium 9.8 mg/dL (8.4-10.2); Carbon Dioxide 27 mmol/L (22-29); Chloride 105 mmol/L (96-108); Cholesterol 99 mg/dL (<200); Estimated Glomerular Filt Rate 48; Glucose Fasting 134 mg/dL (60-99); HDL Cholesterol 32 mg/dL (>40); LDL Cholesterol Calculated 48 mg/dL (<100); Potassium 4.5 mmol/L (3.3-5.1); Sodium 139 mmol/L (135-145); Total Protein 7.6 g/dL (6.5-8.0); Triglycerides 95 mg/dL (<150)
[2024-05-30 14:44] LABS: Vitamin D 25-OH Total 41.9 ng/mL (>30)
[2024-05-30 14:51] LABS: Vitamin B12 522 pg/mL (200-900)
== END 2024-05-30 13:24 | disposition home or self-care (01) ==
LOC: HO.LAB 13:23
PROVIDERS: PCP Internal Medicine; Visit Provider Internal Medicine
DX: E11.9 Type 2 diabetes mellitus without complications (principal); D64.9 Anemia, unspecified; E78.00 Pure hypercholesterolemia, unspecified; E55.9 Vitamin D deficiency, unspecified; E53.8 Deficiency of other specified B group vitamins
CPT/HCPCS: 36415; 80053; 80061; 82306; 82607; 82746; 83036; 85025

== ENCOUNTER 2024-06-04 13:16 | Outpatient (AMB) | payer OTHER, SELFPAY ==
[2024-06-04 13:21] VITALS: BP 142/78; PULSE 82; O2SAT 97; BMI 47.8
--- NOTE | 2024-06-04 13:21 | A.OFFVIS_ITS ---
Vital Signs 06/04/24 13:21 Height 5 ft 7 in Weight 305 lb 5.443 oz BMI 47.8 BP 142/78 H Blood Pressure Location Lt brachial Position Sitting Pulse 82 Pulse Source Pulse Oximeter Pulse Oximetry (%) 97 Oxygen Delivery Method Room Air Intake Visit Reasons: jerel Intake Note: pt is here for follow up but she is having short of breath with exertion, and had illness a few weeks ago and she is not back to her baseline, dry cough still. pt would like Medium F40 mask and headgear. 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: No Allergies adhesive tape Allergy (Intermediate, Verified 06/04/24 13:44) Rash empagliflozin [From JARDIANCE] Allergy (Intermediate, Verified 06/04/24 13:44) Rash sitagliptin [From JANUVIA] Adverse Reaction (Severe, Verified 06/04/24 13:44) Rash,nausea, hypoglycemia metformin [METFORMIN] Adverse Reaction (Intermediate, Verified 06/04/24 13:44) Rash, GI upset jardiance Allergy (Intermediate, Uncoded 06/04/24 13:44) Rash metformin Allergy (Intermediate, Uncoded 06/04/24 13:44) Rash Medication List - Last Reconciled 06/04/24 by Camila Olmos MD [ABSORBANT HEAVY PADS As directed] albuterol sulfate 90 mcg/actuation 2 puffs inhalation Q4-6H PRN 30 days atorvastatin 40 mg PO BEDTIME 90 days bisacodyl (Dulcolax (bisacodyl)) 10 mg (2 x 5 mg) PO ONCE 2 days budesonide-formoterol 160-4.5 mcg/actuation (Symbicort) 2 puffs inhalation BID cholecalciferol (vitamin D3) 50 mcg PO DAILY 90 days clotrimazole-betamethasone 1-0.05 % 1 appl topical BID 2 weeks [DISPOSABLE WIPES As directed] fluoxetine 10 mg PO DAILY fluticasone propionate 50 mcg/actuation 1 spray intranasal DAILY glipizide ER 10 mg PO BID insulin regular hum U-500 conc 200 units in AM, 150 units at lunchtime and 150 units at dinnertime subcutaneously; lisinopril 5 mg PO DAILY 90 days lorazepam 0.5 mg PO TID PRN 30 days lubiprostone 16 mcg (2 x 8 mcg) PO BID 30 days meloxicam 15 mg PO DAILY PRN 30 days metoclopramide HCl 10 mg PO TID PRN omeprazole 20 mg PO BID oxycodone 5 mg PO Q6-8H PRN 7 days peg 3350-electrolytes 236-22.74-6.74 -5.86 gram 240 mL PO Q10M pramipexole 1 mg PO TID 30 days sennosides (Black-Draught Lax-Senna) 8.6 mg PO BID spironolactone 100 mg PO BID 30 days tirzepatide (Mounjaro) 5 mg subcut QWEEK tramadol Take 1 to 2 tablets orally twice a day as needed for pain PRN; 25 days Do you need a note to return to daycare/school/sports/work: No HPI HPI jerel : Details: This 54 years old female with super morbid obesity and obstructive sleep apnea, as well as chronic obstructive pulmonary disease, comes for follow-up after 2 months, She started using the CPAP regularly and keeps on using every night. Sleeps much better than before. She does have some air leak and asking for a new fullface mask. Her breathing is stable but every now and then she has some cough and wheezing. She continues to use Symbicort 2 puffs b.i.d. and needs to use the rescue inhaler only once in a while. Denies any acute respiratory issues at this time, except for some bouts of chest tightness. Patient has been started on Mounjaro injections and she is starting to lose weight. [facility] Medical History Vitamin D deficiency Degenerative joint disease of right shoulder Restrictive lung disease JEREL (obstructive sleep apnea) Asthma COPD (chronic obstructive pulmonary disease) Blood dyscrasia Superficial bruising of lower leg Pain and swelling of right lower extremity Morbid obesity with BMI of 50.0-59.9, adult Pure hypercholesterolemia Fatigue Diabetes mellitus Pedal edema Nausea and vomiting Abdominal pain Atypical chest pain On beta kelsey at home Dyspnea on effort Asthma Sleep apnea with use of continuous positive airway pressure (CPAP) HTN (hypertension) Liver cirrhosis Pars defect of lumbar spine Spondylolisthesis, lumbar region Postlaminectomy syndrome, lumbar Spondylosis of lumbar spine Rectal bleeding Fatty pancreas Chronic constipation Cirrhosis of liver without ascites Body mass index [BMI] 50.0-59.9, adult Morbid (severe) obesity due to excess calories Depression Anxiety Insomnia Obstructive sleep apnea Periodic limb movement disorder Neuropathic pain of both feet GERD (gastroesophageal reflux disease) Gastroparesis Lumbar degenerative disc disease Benign essential hypertension Dyslipidemia Diastolic dysfunction Type 2 diabetes mellitus with diabetic autonomic (poly)neuropathy Surgical History H/O colonoscopy History of surgery History of esophagogastroduodenoscopy (EGD) H/O cardiac catheterization (~12/14/17) H/O section History of laryngoscopy (~02/10/19) History of ventral hernia repair (~2008) History of appendectomy History of lumbar discectomy Family History Father Diabetes mellitus Hypertension Mother Diabetes mellitus Hypertension Uterine cancer History of heart attack Social History Housing: Apartment Are you a primary companion caregiver to a significant other at home: No Do you presently have visiting nurse or other home services: Yes (Home Health Aide, VNA) Alcohol intake: never Patient Tobacco Use Status: Former Tobacco user Tobacco use type: Cigarette Years Smoked: 10 e-Cigarette/Vaping Use: Never Used Second Hand Smoke Exposure: No service: No Current occupational status: disabled Cognitive needs: No Hearing needs: No Vision needs: Yes Review of Systems Const All systems reviewed & are unremarkable except as noted in HPI and below Reports snoring Eyes Reports no additional complaints ENT Reports nasal congestion (MILD OFF AND ON) Card Denies chest pain, Denies irregular heart rhythm and Denies leg edema Resp Reports cough, Reports snoring and Reports wheezing (MILD INTERMITTENT WITH CONGESTED FEELING) GI Reports heartburn (CONTROLLED WITH OMEPRAZOLE) Reports no additional complaints Musc Reports back pain Skin/Breast Reports system reviewed and no additional complaints, except as documented Neuro Reports restless legs Psych Reports depression (CONTROLLED WITH MED) Aller/Immun Reports wheezing (MILD INTERMITTENT WITH CONGESTED FEELING) Physical Exam Vital Signs: Last Vital Signs Pulse 82 06/04/24 13:21 BP 142/78 H 06/04/24 13:21 Pulse Ox 97 06/04/24 13:21 Oxygen Delivery Method Room Air 06/04/24 13:21 BMI result Body Mass Index 47.8 Const General: comfortable, no acute distress, alert and awake Orientation/consciousness: patient oriented x3 HEENT Head: Yes normal to inspection General nose exam: No nasal polyps present and No nasal discharge present Face and sinus: Yes sinuses nontender Mouth: oropharynx normal Throat: No posterior oropharynx normal (NARROW AND CROWDED MALLAMPATI CLASS 4) Eyes General: appearance normal, both eyes and all related structures Neck Neck: Yes normal visual inspection, Yes no lymphadenopathy, Yes trachea midline and Yes no JVD Thyroid: Thyroid normal Chest Chest palpation & inspection: normal inspection of the chest, normal palpation of entire chest wall and no tenderness Resp Other: PERCUSSION NOTE IS NOT PERCEPTIBLE BECAUSE OF THICK CHEST WALL. BREATH SOUNDS ARE DISTANT WITH PROLONGED EXPIRATORY PHASE. SHE DOES NOT HAVE ANY WHEEZES OR CREPITATIONS, BUT BREATH SOUNDS ARE DIMINISHED OVER THE BASILAR AREAS. Cardio Palpation: normal PMI Rate: regular rate Rhythm: regular rhythm Heart sounds: no gallops and no murmurs GI Palpation (GI): Soft to palpation, nontender, No hepatosplenomegaly present and no masses Auscultation: normal bowel sounds Back/Spine/Pelvis Thoracic/Lumbar Spine: thoracic and lumbar spine normal to inspection and thoraco-lumbar ROM limited Skin General skin exam: no rashes or lesions noted Neuro General: patient oriented x3 and no focal motor deficits Cranial nerves: Yes CN's II-XII intact bilaterally Extrem General: Yes normal to inspection, Yes no clubbing, cyanosis or edema and Yes no calf tenderness Psych Speech and movement: Normal speech and movement present Results Reviewed Results Reviewed: Compliance report for the last 30 nights is reviewed. She has used 26/30 nights, 87%. For 17 nights she has used more than 4 hours. The average usage per night is 4 hours 2 minutes. There is moderate amount of air leak. Residual AHI only 1.4 Assessment & Plan Assessment & Plan (1) Asthma: Comment: KNOWN TO HAVE MILD BRONCHIAL ASTHMA/ COPD OVERLAP SYNDROME. DOING WELL WITH CURRENT TREATMENT. Code(s): J45.909 - Unspecified asthma, uncomplicated Category: Medical Qualifiers: Asthma severity: moderate Asthma persistence: persistent Asthma complication type: with acute exacerbation Qualified Code(s): J45.41 - Moderate persistent asthma with (acute) exacerbation Plan: SYMBICORT 160-4.52 PUFFS B.I.D. ALBUTEROL HFA 2 PUFFS Q 6 HOURS P.R.N.. (2) JEREL (obstructive sleep apnea): Comment: HAS RATHER VERY SEVERE OBSTRUCTIVE SLEEP APNEA. SHE NEEDS TO BE STARTED ON CPAP THERAPY. SHE IS WELL VERSED WITH CPAP USAGE. CPAP TITRATION STUDY WAS SUCCESSFUL , AND SHE WAS STARTED ON THE CPAP, FULLFACE MASK AND PRESSURE OF 15 CM. SHE HAS BEEN USING ALMOST EVERY NIGHT AND FOR AT LEAST 4 HOURS PER NIGHT . SHE CLAIMS THAT SHE IS BENEFITING FROM THE CPAP AND IS STARTING TO SLEEP BETTER. Code(s): G47.33 - Obstructive sleep apnea (adult) (pediatric) Category: Medical Plan: COMMENDED FOR USING THE CPAP REGULARLY. ADVISED TO CONTINUE USING IT WITH FULLFACE MASK AND PRESSURE OF 15 CM. PRESCRIPTION FOR A NEW FULLFACE MASK, F 40 OF MEDIUM SIZE IS SENT. (3) Restrictive lung disease: Comment: Even though her PFT and office spirometry were basically normal, I think she has significant restrictive lung disease due to her morbid obesity. Code(s): J98.4 - Other disorders of lung Category: Medical Plan: WEIGHT REDUCTION WOULD HELP AND SHE IS ALSO INSTRUCTED TO DO DEEP BREATHING EXERCISES. (4) Morbid obesity with BMI of 50.0-59.9, adult: Comment: SHE REMAINS GROSSLY OVERWEIGHT. CURRENT BMI 47.8 IMPROVED FROM BEFORE. SHE CLAIMS THAT SHE IS WATCHING DIET AND STARTING TO WALK AND SHE IS TRYING TO LOSE WEIGHT ON HER OWN. SHE HAS BEEN STARTED ON MOUNJARO INJECTIONS ONCE A WEEK WHICH IS HELPING. Code(s): E66.01 - Morbid (severe) obesity due to excess calories; Z68.43 - Body mass index [BMI] 50.0-59.9, adult Category: Medical Plan: CONTINUE THE SAME. Coding Level of Care Code Est Pt Level 4 (86295) Diagnoses Moderate persistent asthma with acute exacerbation J45.41 Asthma severity: moderate Asthma persistence: persistent Asthma complication type: with acute exacerbation JEREL (obstructive sleep apnea) G47.33 Restrictive lung disease J98.4 Morbid obesity with BMI of 50.0-59.9, adult E66.01; Z68.43
== END 2024-06-04 13:43 | disposition home or self-care (01) ==
PROVIDERS: PCP Internal Medicine; Visit Provider Internal Medicine
DX: J45.41 Moderate persistent asthma with (acute) exacerbation (principal); G47.33 Obstructive sleep apnea (adult) (pediatric); J98.4 Other disorders of lung; E66.01 Morbid (severe) obesity due to excess calories; Z68.43 Body mass index [BMI] 50.0-59.9, adult
CPT/HCPCS: 99214

== ENCOUNTER → 2024-06-04 13:16 | Outpatient (BNVA) | payer OTHER, SELFPAY | PROVIDERS: PCP Internal Medicine; Visit Provider Internal Medicine | DX: G47.33 Obstructive sleep apnea (adult) (pediatric) (principal); J45.41 Moderate persistent asthma with (acute) exacerbation; E66.09 Other obesity due to excess calories; J98.4 Other disorders of lung; Z99.89 Dependence on other enabling machines and devices; Z68.42 Body mass index [BMI] 45.0-49.9, adult | CPT/HCPCS: 99212 ==

== ENCOUNTER 2024-08-11 08:44 | Outpatient (REF) | payer OTHER, SELFPAY | END 2024-08-11 08:45 | disposition home or self-care (01) | LOC: HO.LAB 08:44 | PROVIDERS: PCP Internal Medicine; Visit Provider Internal Medicine | DX: Z13.89 Encounter for screening for other disorder (principal) ==

== ENCOUNTER 2024-08-14 09:21 | Outpatient (REF) | payer OTHER, SELFPAY ==
[2024-08-14 10:26] LABS: Appearance Urine Clear; Color Urine Yellow; Glucose Urine UA 100 mg/dL (Negative); Leukocyte Esterase Urine Negative (Negative); Nitrite Urine Negative (Negative); PH 5.5 (5.0-9.0); Specific Gravity - Urine 1.025 (1.005-1.025); Urine Blood Negative (Negative); Urine Ketones Trace mg/dL (Negative); Urine Protein Trace mg/dL (Neg-Trace)
[2024-08-14 11:19] LABS: Creatinine Urine 166.81 mg/dL; Microalbum/Creatinine Ratio Ur 20.9 ug/mg cr (<30)
== END 2024-08-14 09:22 | disposition home or self-care (01) ==
LOC: HO.LNP 09:21
PROVIDERS: PCP Internal Medicine; Visit Provider Internal Medicine Gastroenterology
DX: R30.0 Dysuria (principal); E11.9 Type 2 diabetes mellitus without complications; R93.5 Abnormal findings on diagnostic imaging of other abdominal regions, including retroperitoneum
CPT/HCPCS: 81003; 82043; 82570

== ENCOUNTER 2024-08-14 09:21 | Outpatient (AMB) | payer OTHER, SELFPAY ==
--- NOTE | 2024-08-14 09:32 | MHC.OFFVIS ---
Vital Signs 08/14/24 09:35 Height 5 ft 7 in Weight 293 lb BMI 45.9 BP 140/80 H Blood Pressure Location Lt brachial Position Sitting Pulse 95 Pulse Oximetry (%) 96 Oxygen Delivery Method Room Air Intake Visit Reasons: 3 month follow up Intake Note: Patient 3 month follow up for chronic constipation. Patient cc: Nauseas, abdominal pain/bloating, acid reflex, constipation with some blood on and off, some swallowing difficulty and tiredness with SOB. 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 Required: No Accompanied by: Self / Same As Patient Allergies adhesive tape Allergy (Intermediate, Verified 09/09/24 14:23) Rash empagliflozin (From JARDIANCE) Allergy (Intermediate, Verified 09/09/24 14:23) Rash sitagliptin (From JANUVIA) Adverse Reaction (Severe, Verified 09/09/24 14:23) Rash,nausea, hypoglycemia metformin (METFORMIN) Adverse Reaction (Intermediate, Verified 09/09/24 14:23) Rash, GI upset jardiance Allergy (Intermediate, Uncoded 09/09/24 14:23) Rash metformin Allergy (Intermediate, Uncoded 09/09/24 14:23) Rash Medication List - Last Reconciled 08/14/24 by Annika Redding MD [ABSORBANT HEAVY PADS As directed] albuterol sulfate 90 mcg/actuation 2 puffs PO Q4-6H PRN atorvastatin 40 mg PO BEDTIME 90 days bisacodyl (Dulcolax (bisacodyl)) 10 mg (2 x 5 mg) PO ONCE 2 days budesonide-formoterol 160-4.5 mcg/actuation (Symbicort) 2 puffs inhalation BID cholecalciferol (vitamin D3) 50 mcg PO DAILY 90 days clotrimazole-betamethasone 1-0.05 % 1 appl topical BID 2 weeks [DISPOSABLE WIPES As directed] fluoxetine 10 mg PO DAILY fluticasone propionate 50 mcg/actuation 1 spray intranasal DAILY glipizide ER 10 mg PO BID insulin regular hum U-500 conc 200 units in AM, 150 units at lunchtime and 150 units at dinnertime subcutaneously; lisinopril 5 mg PO DAILY 90 days lorazepam 0.5 mg PO TID PRN 30 days lubiprostone 16 mcg (2 x 8 mcg) PO BID 30 days meloxicam 15 mg PO DAILY PRN 30 days metoclopramide HCl 10 mg PO TID PRN omeprazole 20 mg PO BID oxycodone 5 mg PO Q6-8H PRN 7 days peg 3350-electrolytes 236-22.74-6.74 -5.86 gram 240 mL PO Q10M pramipexole 1 mg PO TID 30 days sennosides (Black-Draught Lax-Senna) 8.6 mg PO BID spironolactone 100 mg PO BID 30 days tirzepatide (Mounjaro) 10 mg subcut QWEEK tramadol Take 1 to 2 tablets orally twice a day as needed for pain PRN; 25 days HPI HPI 3 month follow up: Details: GI CLINIC VISIT FOR THIS 54-YEAR-OLD FEMALE FOR FOLLOW-UP OF: ? 1. Gastroparesis - K31.84 (Primary) ? 2. Slow transit constipation - K59.01 ? 3. Hepatic steatosis - K76.0 ? 4. Past Hepatitis C infection TODAY'S VISIT Patient cc: Nauseas, abdominal pain/bloating, acid reflex, constipation with some blood on and off, some swallowing difficulty and tiredness with SOB. Continues to have abdominal pain and bloating Taking Amitiza 16 mcg twice a day and added Senna Having a BM once a day with incomplete evacuation Notes heaviness in the lower abdomen. Wt loss of 10 lbs. PAST VISITS: Denies any change in her symptoms. Started Mounjaro 3 weeks ago and took her last injection on 04/28/24 Has lost 6 lbs. Blood sugar was 217 this am. Has to be on a gluten free and potassium free diet due to high potassium levels. She would like to post pone her procedures Brother is in Rehab Unable to FU earlier due to other health issues (leg swelling and back pain) Worried about her brother who had a colon resection for severe diverticulosis and had 4 surgeries, has a colostomy bag and still in the hospital x 2 months Son has mental issues. Complains of intermittent rectal bleeding (BRB) twice a week. Not always related to constipation. Also complains of nausea and feels upper part of abdomen is swollen Has intermittent constipation and has a BM once a day Patient cc: fatigue, nauseas, abdominal pain/bloating, acid reflex on and off, and constipation, some dysphagia. Resumed taking Amitiza 8 mg twice a day Has a BM once a day associated with straining. Denies recent rectal bleeding. Continues to have nausea and epigastric burning Continues to have bloating and constipation with intermittent rectal bleeding. Has a BM every other day - hard stools with straining Drinking a lot of water. Also notes dysphagia and nausea Returns after a hiatus of 18 months - has been dealing with other issues. CC: Pt states she has been throwing up a lot and is having trouble eating. She has been feeling nausea and her ribs hurt from gagging. Pains are in the middle of her stomach and in the bottom of the esophagus and she feels as though her food is stuck there and it is not going down. Complains of nausea, vomiting. Notes dysphagia to solid food - feels food is stuck in the middle of the chest. Keeps drinking fluids - feels food is there all day. Continues to have constipation. Feels hungry and unable to eat. Has one BM daily. Unable to go out - Feels sick to the stomach with gagging followed by vomiting - nothing comes up. Has lost weight since she is not able to eat full meals - weighed 291 lbs ?PAST VISIT: Had a temporary implant for back pain and having a permananet implant placement on 10/08/20 ?? ? Continues to have RUQ pain. ?? ? Has had nausea and throwing up a lot. ?? ? She would like to have her back fixed first and then schedule the EGD and Colonoscopy. ?? ? Denies recent rectal bleeding. Notes intermittent rectal bleeding. ? ? ? Annoying pains on the bottom of her left breast. ?? ? Taking Omeprazole and notes increased heartburn than before. ?? ? Unable to eat anything for 2 days and was drinking water. ?? ? Only thing which helped was eileen tea. ?? ? Thinks she may have lost a? few lbs and is unsure. ? ? ? Did not have the colonoscopy since she was afraid - there is a lot going on. ? Uncontrolled blood sugars despite taking Insulin. ? Wakes up with nausea and has intermittent vomiting. ? Has nausea looking at the food. ? ? ? Feels bloated all the time [facility] Medical History Vitamin D deficiency Degenerative joint disease of right shoulder Restrictive lung disease MATILDA (obstructive sleep apnea) Asthma COPD (chronic obstructive pulmonary disease) Blood dyscrasia Superficial bruising of lower leg Pain and swelling of right lower extremity Morbid obesity with BMI of 50.0-59.9, adult Pure hypercholesterolemia Fatigue Diabetes mellitus Pedal edema Nausea and vomiting Abdominal pain Atypical chest pain On beta kelsey at home Dyspnea on effort Asthma Sleep apnea with use of continuous positive airway pressure (CPAP) HTN (hypertension) Liver cirrhosis Pars defect of lumbar spine Spondylolisthesis, lumbar region Postlaminectomy syndrome, lumbar Spondylosis of lumbar spine Rectal bleeding Fatty pancreas Chronic constipation Cirrhosis of liver without ascites Body mass index [BMI] 50.0-59.9, adult Morbid (severe) obesity due to excess calories Depression Anxiety Insomnia Obstructive sleep apnea Periodic limb movement disorder Neuropathic pain of both feet GERD (gastroesophageal reflux disease) Gastroparesis Lumbar degenerative disc disease Benign essential hypertension Dyslipidemia Diastolic dysfunction Type 2 diabetes mellitus with diabetic autonomic (poly)neuropathy Surgical History H/O colonoscopy History of surgery History of esophagogastroduodenoscopy (EGD) H/O cardiac catheterization (~12/14/17) H/O section History of laryngoscopy (~02/10/19) History of ventral hernia repair (~2008) History of appendectomy History of lumbar discectomy Family History Father Diabetes mellitus Hypertension Mother Diabetes mellitus Hypertension Uterine cancer History of heart attack Social History Housing: Apartment Are you a primary customer care professional to a significant other at home: No Do you presently have visiting nurse or other home services: Yes (Home Health Aide, VNA) Alcohol intake: never Patient Tobacco Use Status: Former Tobacco user Tobacco use type: Cigarette Years Smoked: 10 e-Cigarette/Vaping Use: Never Used Second Hand Smoke Exposure: No service: No Current occupational status: disabled Cognitive needs: No Hearing needs: No Vision needs: Yes Physical Exam Vital Signs: Last Vital Signs Pulse 95 08/14/24 09:35 BP 140/80 H 08/14/24 09:35 Pulse Ox 96 08/14/24 09:35 Oxygen Delivery Method Room Air 08/14/24 09:35 BMI result Body Mass Index 45.9 Const General: healthy appearing and no acute distress Nutritional Appearance: obese Orientation/consciousness: patient oriented x3 Limitations: no limitations HEENT Head: Yes normal to inspection Ears: hearing grossly normal bilaterally Eyes Sclerae: sclerae normal Pupils: Equal, round and reactive pupils present Neck Neck: Yes normal visual inspection Chest Chest palpation & inspection: normal inspection of the chest Resp Effort & Inspection: normal respiratory effort Auscultation: clear to auscultation bilaterally Cardio Palpation: normal PMI Rate: regular rate Rhythm: regular rhythm Heart sounds: S1 normal heart sound present, S2 normal heart sound present and no murmurs GI Palpation (GI): Soft to palpation, nontender and No hepatosplenomegaly present Auscultation: normal bowel sounds Rectal Exam - Female: deferred Skin General skin exam: no rashes or lesions noted Neuro General: patient oriented x3, gait normal and moves all extremities Cranial nerves: Yes Equal, round and reactive pupils present Psych Appearance: grossly normal Mental Status: mental status grossly normal Assessment & Plan Assessment & Plan (1) Abnormal CT of the abdomen: Code(s): R93.5 - Abnormal findings on diagnostic imaging of other abdominal regions, including retroperitoneum Category: Medical Plan 54 YF with LVH, moderate, echo 03/03 with normal LV systolic function, DM 2 - Diabetes mellitus type 2, HTN - Hypertension, Hepatic Steatosis/Fatty Liver, RLL nodule - 05/[address], MATILDA followed in GI for hepatic steatosis with cirrhosis on elastography (normal LFTs). Patient also complains of dysphagia, decreased appetite, early satiety, nausea and vomiting likely due to diabetic gastroparesis - confirmed on gastric emptying study. She has chronic constipation most likely slow transit constipation due to long-standing diabetes, use of pain medication and adhesions from past surgeries. Patient was advised to increase senna to 2 tablets twice daily for constipation. ? She has been taking? Amitiza twice daily with partial relief.? EGD and colonoscopy was performed in 12/2020 and findings as noted above. Repeat colonoscopy in 6 months to FU on large TV adenoma at 60 cms. Patient was advised to continue metoclopramide 10 mg 3 times daily for gastroparesis and constipation and add Mirtazepine 7.5 mg at bedtime 08/04/22 Resume lubiprostone 8 mg twice daily and schedule an appt for an EGD (GERD and Dysphagia) and Colonoscopy (FU of colon polyps) in Sep, 2022 EGD and colon scheduled on 02/16/23 and had to be cancelled pending cardiology workup 11/01/23 Complains of intermittent rectal bleeding (BRB) twice a week. Not always related to constipation. Also complains of nausea and feels upper part of abdomen is swollen Has intermittent constipation and has a BM once a day 05/01/24 Patient is scheduled for an upper endoscopy (abd pain, GERD, gastroparesis) and colonoscopy (FU of colon polyps) on 05/02/24 She would like to postpone - aware she will need to wait 5-6 months for her appt Also she did not hold Mounjaro for a week Advised to increase Lubiprotone to 16 mcg twice daily for constipation. 08/14/24 Continues to have abdominal pain and bloating Taking Amitiza 16 mcg twice a day and added Senna Wt loss of 10 lbs Patient advised to schedule an abdominal CT scan (FU of multiple lymph nodes are seen around the saqib hepatis, periceliac region and pancreatic head), EGD (GERD and Dysphagia) and Colonoscopy (FU of colon polyps) in Sep, 2022 FU in 6 months Orders: Orders CT abdomen wo IV con 08/14/24 R93.5 - Abnormal findings on diagnostic imaging of other abdominal regions, including retroperitoneum Medications: Refilled lubiprostone 16 mcg (2 x 8 mcg) PO BID 120 caps 2RF 30 days K59.09 - Other constipation Coding Level of Care Code Est Pt Level 4 (17404) Diagnoses Abnormal CT of the abdomen R93.5 Time Spent (min) 24
[2024-08-14 09:35] VITALS: BP 140/80; PULSE 95; O2SAT 96; BMI 45.9
== END 2024-08-14 10:12 | disposition home or self-care (01) ==
LOC: HO.HGI 09:21
PROVIDERS: PCP Internal Medicine; Visit Provider Internal Medicine Gastroenterology
DX: R93.5 Abnormal findings on diagnostic imaging of other abdominal regions, including retroperitoneum (principal)
CPT/HCPCS: 99499

== ENCOUNTER 2024-08-27 13:53 | Outpatient (AMB) | payer OTHER, SELFPAY ==
[2024-08-27 14:03] VITALS: BP 144/94; PULSE 79; RESP 16; O2SAT 94; BMI 45.9
--- NOTE | 2024-08-27 14:03 | A.OFFPC_ITS ---
Vital Signs 08/27/24 14:03 Height 5 ft 7 in Weight 292 lb 12.8 oz BMI 45.9 BP 144/94 H Blood Pressure Location Lt brachial Position Sitting Respiration 16 Pulse 79 Pulse Source Pulse Oximeter Pulse Oximetry (%) 94 Oxygen Delivery Method Room Air Intake Visit Reasons: 3 month f/u Physician Practice Manager Required: No Accompanied by: Self / Same As Patient Allergies adhesive tape Allergy (Intermediate, Verified 08/27/24 14:28) Rash empagliflozin [From JARDIANCE] Allergy (Intermediate, Verified 08/27/24 14:28) Rash sitagliptin [From JANUVIA] Adverse Reaction (Severe, Verified 08/27/24 14:28) Rash,nausea, hypoglycemia metformin [METFORMIN] Adverse Reaction (Intermediate, Verified 08/27/24 14:28) Rash, GI upset jardiance Allergy (Intermediate, Uncoded 08/27/24 14:28) Rash metformin Allergy (Intermediate, Uncoded 08/27/24 14:28) Rash Medication List - Last Reconciled 08/27/24 by THEA Reis [ABSORBANT HEAVY PADS As directed] albuterol sulfate 90 mcg/actuation 2 puffs PO Q4-6H PRN atorvastatin 40 mg PO BEDTIME 90 days budesonide-formoterol 160-4.5 mcg/actuation (Symbicort) 2 puffs inhalation BID cholecalciferol (vitamin D3) 50 mcg PO DAILY 90 days clotrimazole-betamethasone 1-0.05 % 1 appl topical BID 2 weeks [DISPOSABLE WIPES As directed] fluoxetine 10 mg PO DAILY fluticasone propionate 50 mcg/actuation 1 spray intranasal DAILY glipizide ER 10 mg PO BID insulin regular hum U-500 conc 200 units in AM, 150 units at lunchtime and 150 units at dinnertime subcutaneously; lisinopril 5 mg PO DAILY 90 days lorazepam 0.5 mg PO TID PRN 30 days lubiprostone 16 mcg (2 x 8 mcg) PO BID 30 days meloxicam 15 mg PO DAILY PRN 30 days metoclopramide HCl 10 mg PO TID PRN omeprazole 20 mg PO BID oxycodone 5 mg PO Q6-8H PRN 7 days pramipexole 1 mg PO TID 30 days sennosides (Black-Draught Lax-Senna) 8.6 mg PO BID spironolactone 100 mg PO BID 30 days tirzepatide (Mounjaro) 10 mg subcut QWEEK tramadol Take 1 to 2 tablets orally twice a day as needed for pain PRN; 25 days Tobacco use date assessed: 08/27/24 Dental Screening Dental Screen Date: 08/27/24 Did you have a dental visit in the last 12 months?: Yes Did you have a dental problem in the last 6 months where you did not have access to dental care?: No Was dental information given to patient?: Patient has dentist HPI 3 month f/u HPI0 Details Reports that she saw endocrine [place] [facility] [place] 10.[place]- 07/17/24 was the last visit. Reports that they increased her mounjaro to 10 mg and increased her insulin 160 units in the morning and 90 units for dinner. Reports that she keep forgetting the night dose. Reports that she is going to put on arm on her phone to remind herself. Urine test done, shows better result than before. Reports that she has been feeling tried and sob, reports that she has been using the inhaler more, doing simple things even food shopping. Reports that she brought it up to dr. Lombardo bp 122/78 rechecked after relaxing [facility] Medical History Vitamin D deficiency Degenerative joint disease of right shoulder Restrictive lung disease MATILDA (obstructive sleep apnea) Asthma COPD (chronic obstructive pulmonary disease) Blood dyscrasia Superficial bruising of lower leg Pain and swelling of right lower extremity Morbid obesity with BMI of 50.0-59.9, adult Pure hypercholesterolemia Fatigue Diabetes mellitus Pedal edema Nausea and vomiting Abdominal pain Atypical chest pain On beta kelsey at home Dyspnea on effort Asthma Sleep apnea with use of continuous positive airway pressure (CPAP) HTN (hypertension) Liver cirrhosis Pars defect of lumbar spine Spondylolisthesis, lumbar region Postlaminectomy syndrome, lumbar Spondylosis of lumbar spine Rectal bleeding Fatty pancreas Chronic constipation Cirrhosis of liver without ascites Body mass index [BMI] 50.0-59.9, adult Morbid (severe) obesity due to excess calories Depression Anxiety Insomnia Obstructive sleep apnea Periodic limb movement disorder Neuropathic pain of both feet GERD (gastroesophageal reflux disease) Gastroparesis Lumbar degenerative disc disease Benign essential hypertension Dyslipidemia Diastolic dysfunction Type 2 diabetes mellitus with diabetic autonomic (poly)neuropathy Surgical History H/O colonoscopy History of surgery History of esophagogastroduodenoscopy (EGD) H/O cardiac catheterization (~12/14/17) H/O section History of laryngoscopy (~02/10/19) History of ventral hernia repair (~2008) History of appendectomy History of lumbar discectomy Family History Father Diabetes mellitus Hypertension Mother Diabetes mellitus Hypertension Uterine cancer History of heart attack Social History Housing: Apartment Are you a primary resident care coordinator to a significant other at home: No Do you presently have visiting nurse or other home services: Yes (Home Health Aide, VNA) Alcohol intake: never Patient Tobacco Use Status: Former Tobacco user Tobacco use type: Cigarette Years Smoked: 10 e-Cigarette/Vaping Use: Never Used Second Hand Smoke Exposure: No service: No Current occupational status: disabled Cognitive needs: No Hearing needs: No Vision needs: Yes Questionnaire Thrive Questionnaire Date Thrive assessed: 08/27/24 I am a: Patient What is your living situation today?: I have a steady place to live Within the past 12 months, did the food you bought not last and you didn't have the money to get more?: Never true Within the past 12 months, did you worry whether your food would run out before you got money to buy more?: Never true Do you have trouble paying for medicines?: No Do you have trouble getting transportation to medical appointments?: No Do you have trouble paying your heating and electricity bill?: No Do you have trouble taking care of your child, family member or friend?: No Do you have trouble with day-to-day activities such as bathing, preparing meals, shopping, managing finances, etc.?: No Are you currently unemployed and looking for a job?: No Are you interested in more education?: No Please select the resources that you would like help with: None Currently or been in a relationship where the following occur: No concerns reported THRIVE Score: 0 AUDIT C Alcohol Use Questionnaire (AUDIT-C) 1. How often do you have a drink containing alcohol?: Never 3. How often do you have six or more drinks on one occasion?: Never Total Score: 0 Score Reviewed/Action Taken: Yes CEDRIC-7 AMB Questionnaire CEDRIC-7 Date CEDRIC - 7 assessed: 05/12/24 Source: Developed by Drs. Tim Manning, Estephanie Newell, Lawrence Moreno and colleagues, with an educational amira from [employer]. Physical exam (Primary Care) Vital Signs: Last Vital Signs Pulse 79 08/27/24 14:03 Resp 16 08/27/24 14:03 BP 144/94 H 08/27/24 14:03 Pulse Ox 94 08/27/24 14:03 Oxygen Delivery Method Room Air 08/27/24 14:03 BMI result Body Mass Index 45.9 Tobacco/Smoking Status: Tobacco use Status Tobacco use date assessed 08/27/24 08/27/24 14:06 Patient Tobacco Use Status Former Tobacco user 08/27/24 14:06 Tobacco use type Cigarette 08/27/24 14:06 e-Cigarette/Vaping Use Never Used 08/27/24 14:06 Thrive Assessment: Date of Thrive Assessment Date Thrive assessed 08/27/24 08/27/24 14:06 Currently or been in a relationship where the following occur: No concerns reported Results AMB Hemoglobin A1c AMB Hemoglobin A1c 10.4 % Last Edit by Rosmery Walters CMA on 08/27/24 14:23 Results Reviewed Results Reviewed: Laboratory Last Values Hgb A1c (Clinic) 10.4 % (4.0-6.0) H 08/27/24 14:22 Coding Assessment & Plan Assessment & Plan Orders: Orders AMB Hemoglobin A1c Today E11.43 - Type 2 diabetes mellitus with diabetic autonomic (poly)neuropathy, Z79.4 - halfway (current) use of insulin Comprehensive [place]. Panel Fast 3 Months E11.42 - Type 2 diabetes mellitus with diabetic polyneuropathy, E55.9 - Vitamin D deficiency, unspecified, E78.00 - Pure hypercholesterolemia, unspecified, G47.33 - Obstructive sleep apnea (adult) (pediatric), I73.9 - Peripheral vascular disease, unspecified, J44.1 - Chronic obstructive pulmonary disease with (acute) exacerbation, J45.20 - Mild intermittent asthma, uncomplicated, K74.60 - Unspecified cirrhosis of liver, M19.011 - Primary osteoarthritis, right shoulder, M25.511 - Pain in right shoulder, M43.16 - Spondylolisthesis, lumbar region, R10.13 - Epigastric pain, Z01.818 - Encounter for other preprocedural examination, Z79.4 - halfway (current) use of insulin Lipid Panel 3 Months E11.42 - Type 2 diabetes mellitus with diabetic polyneuropathy, E55.9 - Vitamin D deficiency, unspecified, E78.00 - Pure hypercholesterolemia, unspecified, G47.33 - Obstructive sleep apnea (adult) (pediatric), I73.9 - Peripheral vascular disease, unspecified, J44.1 - Chronic obstructive pulmonary disease with (acute) exacerbation, J45.20 - Mild intermittent asthma, uncomplicated, K74.60 - Unspecified cirrhosis of liver, M19.011 - Primary osteoarthritis, right shoulder, M25.511 - Pain in right shoulder, M43.16 - Spondylolisthesis, lumbar region, R10.13 - Epigastric pain, Z01.818 - Encounter for other preprocedural examination, Z79.4 - halfway (current) use of insulin UA CC w/rflx Micro + Cult 3 Months E11.42 - Type 2 diabetes mellitus with diabetic polyneuropathy, E55.9 - Vitamin D deficiency, unspecified, E78.00 - Pure hypercholesterolemia, unspecified, G47.33 - Obstructive sleep apnea (adult) (pediatric), I73.9 - Peripheral vascular disease, unspecified, J44.1 - Chronic obstructive pulmonary disease with (acute) exacerbation, J45.20 - Mild intermittent asthma, uncomplicated, K74.60 - Unspecified cirrhosis of liver, M19.011 - Primary osteoarthritis, right shoulder, M25.511 - Pain in right shoulder, M43.16 - Spondylolisthesis, lumbar region, R10.13 - Epigastric pain, Z01.818 - Encounter for other preprocedural examination, Z79.4 - halfway (current) use of insulin TSH reflex Free T4 3 Months E11.42 - Type 2 diabetes mellitus with diabetic polyneuropathy, E55.9 - Vitamin D deficiency, unspecified, E78.00 - Pure hypercholesterolemia, unspecified, G47.33 - Obstructive sleep apnea (adult) (pediatric), I73.9 - Peripheral vascular disease, unspecified, J44.1 - Chronic obstructive pulmonary disease with (acute) exacerbation, J45.20 - Mild intermittent asthma, uncomplicated, K74.60 - Unspecified cirrhosis of liver, M19.011 - Primary osteoarthritis, right shoulder, M25.511 - Pain in right shoulder, M43.16 - Spondylolisthesis, lumbar region, R10.13 - Epigastric pain, Z01.818 - Encounter for other preprocedural examination, Z79.4 - 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 (current) use of insulin Hemoglobin A1c 3 Months E11.42 - Type 2 diabetes mellitus with diabetic polyneuropathy, E55.9 - Vitamin D deficiency, unspecified, E78.00 - Pure hypercholesterolemia, unspecified, G47.33 - Obstructive sleep apnea (adult) (pediatric), I73.9 - Peripheral vascular disease, unspecified, J44.1 - Chronic obstructive pulmonary disease with (acute) exacerbation, J45.20 - Mild intermittent asthma, uncomplicated, K74.60 - Unspecified cirrhosis of liver, M19.011 - Primary osteoarthritis, right shoulder, M25.511 - Pain in right shoulder, M43.16 - Spondylolisthesis, lumbar region, R10.13 - Epigastric pain, Z01.818 - Encounter for other preprocedural examination, Z79.4 - 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 (current) use of insulin Complete Blood Count Auto Diff 3 Months E11.42 - Type 2 diabetes mellitus with diabetic polyneuropathy, E55.9 - Vitamin D deficiency, unspecified, E78.00 - Pure hypercholesterolemia, unspecified, G47.33 - Obstructive sleep apnea (adult) (pediatric), I73.9 - Peripheral vascular disease, unspecified, J44.1 - Chronic obstructive pulmonary disease with (acute) exacerbation, J45.20 - Mild intermittent asthma, uncomplicated, K74.60 - Unspecified cirrhosis of liver, M19.011 - Primary osteoarthritis, right shoulder, M25.511 - Pain in right shoulder, M43.16 - Spondylolisthesis, lumbar region, R10.13 - Epigastric pain, Z01.818 - Encounter for other preprocedural examination, Z79.4 - 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 (current) use of insulin Vitamin D 25-OH Total 3 Months E11.42 - Type 2 diabetes mellitus with diabetic polyneuropathy, E55.9 - Vitamin D deficiency, unspecified, E78.00 - Pure hypercholesterolemia, unspecified, G47.33 - Obstructive sleep apnea (adult) (pediatric), I73.9 - Peripheral vascular disease, unspecified, J44.1 - Chronic obstructive pulmonary disease with (acute) exacerbation, J45.20 - Mild intermittent asthma, uncomplicated, K74.60 - Unspecified cirrhosis of liver, M19.011 - Primary osteoarthritis, right shoulder, M25.511 - Pain in right shoulder, M43.16 - Spondylolisthesis, lumbar region, R10.13 - Epigastric pain, Z01.818 - Encounter for other preprocedural examination, Z79.4 - halfway (current) use of insulin Glucose Fasting 3 Months E11.42 - Type 2 diabetes mellitus with diabetic poly neuropathy, E55.9 - Vitamin D deficiency, unspecified, E78.00 - Pure hypercholesterolemia, unspecified, G47.33 - Obstructive sleep apnea (adult) (pediatric), I73.9 - Peripheral vascular disease, unspecified, J44.1 - Chronic obstructive pulmonary disease with (acute) exacerbation, J45.20 - Mild intermittent asthma, uncomplicated, K74.60 - Unspecified cirrhosis of liver, M19.011 - Primary osteoarthritis, right shoulder, M25.511 - Pain in right shoulder, M43.16 - Spondylolisthesis, lumbar region, R10.13 - Epigastric pain, Z01.818 - Encounter for other preprocedural examination, Z79.4 - halfway (current) use of insulin Medications: Changed From clotrimazole-betamethasone 1-0.05 % 1 appl topical BID 2 weeks 45 grams 1RF To clotrimazole-betamethasone 1-0.05 % 1 appl topical BID 45 grams 2RF
--- OUTSIDE RECORDS SUMMARY | 2024-08-27 16:08 | XMS_ITS | Referral Summary ---
Author Organization [facility] Address [address] [place] [address] Care Team Providers Care Poker Machine Attendant Name Role Phone Bi Dennis Primary Care Provider [phone] Allergies Active Allergy Reactions Criticality Noted Date Comments Sitagliptin Hives 01/19/2020 Empagliflozin Hives 01/12/2020 Metformin Rash 01/12/2020 Medications atorvastatin (LIPITOR) 40 mg tablet 0 Active Symbicort 80-4.5 mcg/actuation inhaler 0 Active citalopram (CeleXA) 10 mg tablet Take 10 mg by mouth daily. 0 Active Trulicity 1.5 mg/0.5 mL injection dose 0 Active cyclobenzaprine (FLEXERIL) 10 mg tablet 0 Active fluticasone propionate (FLONASE) 50 mcg/actuation nasal spray 0 Active furosemide (LASIX) 20 mg tablet 0 Active gabapentin (NEURONTIN) 100 mg capsule 0 Active HumuLIN R U-500, Conc, Kwikpen 500 unit/mL (3 mL) insulin pen CONCENTRATED injection 0 Active lisinopriL (PRINIVIL,ZESTRIL ) 5 mg tablet 0 Active Amitiza 8 mcg capsule TAKE 1 CAPSULE BY MOUTH TWICE A DAY WITH FOOD AND WATER 30 0 Active LORazepam (ATIVAN) 0.5 mg tablet 0 Active omeprazole (PriLOSEC) 20 mg capsule 0 Active pramipexole (MIRAPEX) 1 mg tablet 0 Active spironolactone (ALDACTONE) 50 mg tablet 0 Active traMADoL (ULTRAM) 50 mg tablet 0 Active metoprolol succinate XL (TOPROL XL) 25 mg tablet 0 Active clotrimazole (LOTRIMIN) 1% cream 0 Active fluticasone propionate (FLONASE) 50 mcg/actuation nasal spray 2 sprays each side bid 18.2 mL 5 1 Active Breo Ellipta 100-25 mcg/dose blister with device 1 Active meloxicam (MOBIC) 15 mg tablet 1 Active metoclopramide (REGLAN) 10 mg tablet 1 Active mirtazapine (REMERON) 7.5 mg tablet 1 Active oxyCODONE IR (ROXICODONE) 5 mg tablet 1 Active primidone (MYSOLINE) 50 mg tablet 1 Active spironolactone (ALDACTONE) 100 mg tablet 1 Active Active Problems Problem Noted Date Diagnosed Date MATILDA (obstructive sleep apnea) 01/19/2020 Shortness of breath 01/12/2020 Social History Tobacco Use Types Packs/Day Years Used Date Smoking Tobacco: Former Smokeless Tobacco: Never Comments:quit 13 yrs ago Comments Unknown Sex and Gender Information Value Date Recorded Sex Assigned at Not on file Legal Sex Female 3:16 PM EDT Gender Identity Not on file Sexual Orientation Not on file Last Filed Vital Signs Vital Sign Reading Time Taken Comments Blood Pressure 136/83 01/19/2020 10:42 AM EDT Pulse 96 01/19/2020 10:42 AM EDT Temperature - - Respiratory Rate - - Oxygen Saturation 98% 01/19/2020 10:42 AM EDT Inhaled Oxygen Concentration - - Weight 132 kg (291 lb) 04/13/2021 11:14 AM EST Height 160 cm (5' 3 ) 04/13/2021 11:14 AM EST Body Mass Index 51.55 04/13/2021 11:14 AM EST Plan of Treatment Not on file Procedures * Due to [place] state law, this organization might not be sharing negative HIV tests. Procedure Name Priority Date/Time Associated Diagnosis Comments AMB EXTERNAL CT CHEST, OUTSI DE RESULT Routine 01/09/2019 from Last 3 Months or Most Recently Relevant to Health Maintenance Results * Due to [place] state law, this organization might not be sharing negative HIV tests. * CT Chest, Outside Result (01/09/2019) Anatomical Region Laterality Modality Other us In System Do Not Edit Provider-Not AMB EXTERNAL RESULT PROCEDURES Final Result from Last 3 Months or Most Recently Relevant to Health Maintenance Insurance [facility] Care Teams Poker Machine Attendant Relationship Specialty Start Date End Date Bi Dennis [address] [place] [address] dr Lavell Monte, [place] [address] PCP - General Internal Medicine 01/05/20
--- OUTSIDE RECORDS SUMMARY | 2024-08-27 16:08 | XMS_ITS | Encounter Summary ---
Author Organization [facility] Address [address] [address] Phone Care Team Providers Care Machine Shop Supervisor Name Role Phone Bi Dennis MD Primary Care Provider [phone] Encounter Details Date Type Department Care Team (Late Contact Info) Description 04/23/2024 Office Communication [facility] [address] [address] Liberty Hairston ARNP [address] [address] Social History Tobacco Use Types Packs/Day Years Used Date Smoking Tobacco: Former Cigarettes Q uit: 10/23/2006 Smokeless Tobacco: Never Alcohol Use Standard Drinks/Week Comments Yes 0 (1 standard drink = 0.6 oz pur e alcohol) Comments Unknown Sex and Gender Information Value Date Recorded Sex Assigned at Not on file Legal Sex Female 4:52 PM EST Gender Identity Not on file Sexual Orientation Not on file documented as of this encounter Plan of Treatment Upcoming Encounters Date Type Department Care Team (Late Contact Info) Description 11/17/2024 1:00 PM EDT Office Visit [facility] [address] [address] Liberty Hairston ARNP [address] [address] documented as of this encounter Visit Diagnoses Not on filedocumented in this encounter Care Teams Machine Shop Supervisor Relationship Specialty Start Date End Date Bi Dennis MD [address] [place] [address] PCP - General Internal Medicine 04/11/21 documented as of this encounter
--- OUTSIDE RECORDS SUMMARY | 2024-08-27 16:08 | XMS_ITS | Clinical Summary ---
Author Organization [facility] Address [address] [place] [address] Care Team Providers Care Bpm Analyst Name Role Phone Bi Dennis Primary Care Provider [phone] Allergies Active Allergy Reactions Criticality Noted Date [...] 04/13/2021 11:14 AM EST Plan of Treatment Health Maintenance Due Date Last Done Comments Cervical Cancer Screening 1969 Cologuard 1969 Colon Cancer Screening 1969 Colonoscopy 1969 FOBT / Fit Test 1969 HIV Screening 1969 HPV and Pap Smear 1969 Hepatitis C Screening 1969 Pap Smear 1969 Sigmoidoscopy 1969 Hepatitis B Vaccines (1 of 3 - 19+ 3-dose series) 1988 Pneumococcal Vaccine: 50+ Ye ars (1 of 2 - PCV) 1988 Mammogram 08/11/2016 08/11/2014, 06/11/2013 Zoster Vaccines (1 of 2) 2019 CT Lung Cancer Screening (Baseline) 01/10/2020 01/09/2019 COVID-19 Vaccine (3 - 2023-2 5 season) 2024 10/22/2020, 09/24/2020 Alcohol/Substance Use Screening 05/21/2024 Depression Screening and Follow-Up 05/21/2024 Social Drivers of Health Nicole ual Screening 05/21/2024 Influenza Vaccine (Season Ended) 2025 02/26/2019, 03/06/2018, 03/27/2017, Additional history exists DTaP,Tdap,and Td Vaccines (2 - Td or Tdap) 03/03/2026 03/03/2016 RSV Vaccine (60+ years old a nd patients) (1 - 1-dose 75+ series) 2044 Procedures * Due to [place] [employer] law, this organization might not be sharing negative HIV tests. Procedure Name Priority Date/Time Associated Diagnosis Comments AMB EXTERNAL CT CHEST, OUTSI DE RESULT Routine 01/09/2019 from Last 3 Months or Most Recently Relevant to Health Maintenance Results * Due to [place] [employer] law, this organization might not be sharing negative HIV tests. * CT Chest, Outside Result (01/09/2019) Anatomical Region Laterality Modality Other us In System Do Not Edit Provider-Not AMB EXTERNAL RESULT PROCEDURES Final Result from Last 3 Months or Most Recently Relevant to Health Maintenance Insurance [facility] Care Teams Bpm Analyst Relationship Specialty Start Date End Date Bi Dennis [address] [place] [address] dr Lavell Monte, [place] [address] PCP - General Internal Medicine 01/05/20
--- OUTSIDE RECORDS SUMMARY | 2024-08-27 16:08 | XMS_ITS | Clinical Summary ---
Author Organization [facility] Address [address] [place] [address] Care Team Providers Care Patient Care Assistant Name Role Phone Bi Dennis MD Primary Care Provider [phone] Immunizations Name Administration Dates Next Due COVID-19, mRNA (Moderna Pre Fall 2022) Monovalent, 100 mcg/0.5 ml or 50 mcg/0.25 ml dose 04/28/2021,10/22/2020,09/24/2020 Influenza,injectable,quad,Prsrv Fr 05/26/2021, Influenza,injectable,quad,preservative 9,03/27/2017,03/03/2016 Influenza,seasonal,trivalent ,preservative (FLUZONE MDV) 05/25/2015,02/26/2013,03/23/2010 Tdap 03/03/2016 Social History Tobacco Use Types Packs/Day Years Used Date Smoking Tobacco: Never Assessed Intimate Partner Violence Answer Date R ecorded Fear of Current or Ex-Partner Not on file Emotionally Abused Not on file 01/11/2023 Physically Abused Not on file 01/11/2023 Sexually Abused Not on file 01/11/2023 Feel Safe at Home Not on file 01/11/2023 Comments Unknown Sex and Gender Information Value Date Recorded Sex Assigned at Not on file Legal Sex Female 10:33 AM EDT Gender Identity Not on file Sexual Orientation Not on file Plan of Treatment Health Maintenance Due Date Last Done Comments Hepatitis C Screening 1969 Pap Smear 1985 Hep B (1 of 3 - 19+ 3-dose series) 1988 Mammogram/Breast Imaging 2009 Colon Cancer Screening 2014 Pneumococcal 50+ years (1 of 1 - PCV) 2019 Zoster (Shingrix) (1 of 2) 2019 COVID-19 Vaccine ( - season) 2024 04/28/2021, 10/22/2020, 09/24/2020 Influenza (#1) 2024 05/26/2021, 01/2019, 03/06/2018, Additional history exists DTaP/Tdap/Td (2 - Td or Tdap) 03/03/2026 03/03/2016 HPV Vaccine Aged Out No longer eligi ble based on patient's age to complete this topic Hep A Aged Out No longer eligi ble based on patient's age to complete this topic Hib Aged Out No longer eligi ble based on patient's age to complete this topic Meningococcal ACWY Aged Out No longer eligible based on patient's age to complete this topic Insurance * Guarantor: ERAN GUEVARA Account Type Relation to Patient Date of Phone Billing Address Personal/Family [address] [place] [address] [address] [place] [address] MEDICAID MEDICARE PART B Care Teams Patient Care Assistant Relationship Specialty Start Date End Date Bi Dennis MD [address] [place] [address] PCP - General Internal Medicine 11/03/19
--- OUTSIDE RECORDS SUMMARY | 2024-08-27 16:08 | XMS_ITS | Encounter Summary ---
Author Organization [facility] Address [address] [facility] [address] [place] [address] Phone Care Team Providers Care Yoga Coordinator Name Role Phone Bi Dennis MD Primary Care Provider [phone]- [phone] Encounter Details Date Type Department Care Team (Late st Contact Info) Description 11/19/2023 Office Communication [facility] [address] [address] [place] [address] Liberty Hairston ARNP [address] [address] Social History Tobacco Use Types [...] Encounters Date Type Department Care Team (Late st Contact Info) Description 11/17/2024 1:00 PM EDT Office Visit [facility] [address] [facility] [address] [place] [address] Liberty Hairston ARNP [address] [facility] [address] [place] [address] documented as of this encounter Visit Diagnoses Not on filedocumented in this encounter Care Teams Yoga Coordinator Relationship Specialty Start Date End Date Bi Dennis MD [address] [place] [address] PCP - General Internal Medicine 04/11/21 documented as of this encounter
--- OUTSIDE RECORDS SUMMARY | 2024-08-27 16:08 | XMS_ITS | Clinical Summary ---
Author Organization [facility] Address [address] [facility] [address] [place] [address] Phone Care Team Providers Care Office Services Associate Name Role Phone Bi Dennis MD Primary Care Provider [phone]- [phone] Allergies Active Allergy Reactions Criticality Noted Date Comments Empagliflozin Hives,Rash Low 01/12/2020 Metformin Rash Low 01/12/2020 Sitagliptin Hives,Rash Low 01/19/2020 Medications atorvastatin (LIPITOR) 40 MG tablet 1 Active Symbicort 80-4.5 MCG/ACT inhaler 1 Active HumuLIN R U-500 KWIKPEN 500 UNIT/ML CONCENTRATED injection 1 Active lisinopril (PRINIVIL,ZESTRIL ) 5 MG tablet 1 Active LORazepam (ATIVAN) 0.5 MG tablet 1 Active Amitiza 8 MCG capsule 1 Active meloxicam (MOBIC) 15 MG tablet 1 Active metoclopramide (REGLAN) 10 MG tablet 1 Active omeprazole (PriLOSEC) [address] capsule 1 Active pramipexole (MIRAPEX) 1 MG tablet 1 Active traMADol (ULTRAM) 50 MG tablet 1 Active Continuous Blood Gluc Sensor (FreeStyle Josiane 2 Sensor) misc 1 Active fluticasone (FLONASE) 50 MCG/ACT nasal spray 1 Active FreeStyle Precision Gerard Test test strip 1 Active oxyCODONE (ROXICODONE) 5 MG immediate release tablet 1 Active primidone (MYSOLINE) 50 MG tablet 1 Active furosemide (LASIX) 20 MG tabletIndications :Type 2 diabetes mellitus with diabetic chronic kidney disease (HCC),Hypertensio n TAKE THREE TABLETS BY MOUTH ONCE DAILY 90 tablet 3 2 Active glipiZIDE (GLUCOTROL) 10 MG tablet Take 10 mg by mouth in the morning and 10 mg in the evening. Take before meals. Active spironolactone (ALDACTONE) 100 MG tablet Take 1 tablet (100 mg total) by mouth in the morning and 1 tablet (100 mg total) in the evening. 180 tablet 3 3 Active FLUoxetine (PROzac) 10 MG capsule Take 10 mg by mouth 1 (one) time each day Active Cholecalciferol (Vitamin D3) 50 MCG (1999 UT) tabletIndications :Stage 3b chronic kidney disease (HCC),Vitamin D deficiency, not otherwise specified Take 2,000 Units by mouth in the morning. 30 tablet 5 4 Active Mounjaro 5 MG/0.5ML solution auto-injector Inject 5 mg under the skin 4 Active Active Problems Problem Noted Date Diagnosed Date Hypo-osmolality and hyponatremia 11/19/2023 Mixed urinary incontinence 09/18/2022 Morbid obesity 09/18/2022 Oligomenorrhea 09/18/2022 Pain in female pelvis 09/18/2022 Asthma 04/11/2021 Degeneration of lumbar intervertebral disc 04/11 Edema of lower extremity 04/11/2021 Irregular heart beat 04/11/2021 Type 2 diabetes mellitus 04/11/2021 Stage 3b chronic kidney disease 04/11/2021 Type 2 diabetes mellitus wit h diabetic chronic kidney disease 08/30/2020 Hypertension 08/30/2020 Obstructive sleep apnea syndrome 01/19/2020 Shortness of breath 01/12/2020 Immunizations Name Administration Dates Next Due Influenza, Quadrivalent, Preservative Free 03/06 Influenza, Quadrivalent, With Preservative 02/26,03/27/2017,03/03/2016 Moderna SARS-COV-2 04/28/2021,10/22/2020, 021 Tdap 03/03/2016 Family History Medical History Relation Comments Dementia Father Diabetes Father Gout Father Heart disease Father Hypertension Father Kidney disease Father Cancer Mother uterine Diabetes Mother Heart disease Mother Hypertension Mother Kidney disease Mother Kidney disease Sibling 1 brother, sister Hypertension Sibling 2 sister, brother Diabetes Sibling 3 sister Stroke Sibling 4 sister Gout Sibling 5 brother Relation Status Comments Father Mother Sibling 1 Sibling 2 Sibling 3 Sibling 4 Sibling 5 Social History Tobacco Use Types Packs/Day Years Used Date Smoking Tobacco: Former Cigarettes Q uit: 10/23/2006 Smokeless Tobacco: Never Tobacco Cessation:Counseling Given: Not Answered Alcohol Use Standard Drinks/Week Comments Yes 0 (1 standard drink = 0.6 oz pur e alcohol) Comments Unknown Sex and Gender Information Value Date Recorded Sex Assigned at Not on file Legal Sex Female 4:52 PM EST Gender Identity Not on file Sexual Orientation Not on file Last Filed Vital Signs Vital Sign Reading Time Taken Comments Blood Pressure 130/50 05/22/2024 10:35 AM EST Pulse 97 05/22/2024 10:05 AM EST Temperature - - Respiratory Rate - - Oxygen Saturation 94% 05/22/2024 10:05 AM EST Inhaled Oxygen Concentration - - Weight 137 kg (303 lb) 05/22/2024 10:05 AM EST Height 162.6 cm (5' 4 ) 11/22/2022 8:25 AM EDT Body Mass Index 52.01 11/22/2022 8:25 AM EDT Plan of Treatment Upcoming Encounters Date Type Department Care Team (Late st Contact Info) Description 11/17/2024 1:00 PM EDT Office Visit [facility] [address] [phone] Liberty Hairston ARNP [address] [phone] Health Maintenance Due Date Last Done Comments Breast Cancer Screening 1969 Pneumococcal Vaccine: Pediat rics (0 to 5 Years) and At-Risk Patients (6 to 64 Years) (1 of 2 - PCV) 1975 Hepatitis B Vaccine (1 of 3 - 19+ 3-dose series) 1988 Colorectal Cancer Screening: Annual FOBT 2018 Colorectal Cancer Screening: Colonoscopy 2018 Colorectal Cancer Screening: Sigmoidoscopy 2018 Diabetes: Ophthalmology Exam 06/20/2020 Diabetes: Pedal Pulse Checked 06/20/2020 Diabetes: Sensory Foot Exam 06/20/2020 Diabetes: Visual Foot Exam 06/20/2020 Diabetes: Hemoglobin A1C 08/04/2021 021, 04/11/2021, 10/24/2019 Influenza Vaccine (Season Ended) 2025 05/26/2021, 02/26/2019, 03/06/2018, Additional history exists Procedures Procedure Name Priority Date/Time Associated Diagnosis Comments HEMOGLOBIN A1C Routine 05/06/2021 9:46 AM EST Type 2 diabetes mellitus with diabetic chronic kidney disease (HCC) Hypertension from Last 3 Months or Most Recently Relevant to Health Maintenance Results * (ABNORMAL) Hemoglobin A1c (05/06/2021 9:46 AM EST) Hemoglobin A1C 11.9(H) (4.0-5.6) % [facility] Comment: MONITORING: In known diabetic patients, hemoglobin A1c targets should be discussed with health care provider. DIAGNOSTIC USE: ??The [place] Diabetes Association (ADA) and the World Health Organization (WHO) recommend the use of HbA1c to diagnose diabetes using a threshold of 6.5%. Patients who have an HbA1c between 5.7% and 6.4% are considered at increased risk for developing diabetes in the future. CAUTION: Falsely low HbA1c results may be observed in patients with hemolytic anemia, homozygous forms of abnormal hemoglobin (e.g. SS, CC, SC), , recent blood loss or hemoglobin F greater than 7%. Fructosamine may be used as an alternate test in these cases. REFERENCE: ADA: Standards of Medical Care in Diabetes 2020, The Journal of Clinical and Applied Research and Education Volume 43, Supplement 1 Testing performed or reported by [facility], a Service of [facility], [address] [place] [id number] Winter Cruz MD, Neurosurgeon JAVI# [id number] Blood (Blood, Venous) 05/06/2021 9:46 AM EST 05/06/2021 9:48 AM EST Linden Munoz MD LAB BLOOD ORDERABLES Final Re sult [facility] from Last 3 Months or Most Recently Relevant to Health Maintenance Insurance [facility] ([id number]) [facility] ([id number]) Care Teams Office Services Associate Relationship Specialty Start Date End Date Bi Dennis MD [address] [place] [address] PCP - General Internal Medicine 04/11/21
--- OUTSIDE RECORDS SUMMARY | 2024-08-27 16:08 | XMS_ITS | Clinical Summary ---
Author Organization [facility] Address [address] [place] [address] Care Team Providers Care Machine Taper Name Role Phone Bi Dennis MD Primary Care Provider Social History Tobacco Use Types Packs/Day Years Used Date Smoking Tobacco: Never Assessed Comments Unknown Sex and Gender Information Value Date Recorded Sex Assigned at Not on file Legal Sex Female 4:53 AM EST Gender Identity Not on file Sexual Orientation Not on file Plan of Treatment Health Maintenance Due Date Last Done Comments Breast Cancer Screening 1969 DTaP,Tdap,and Td Vaccines (1 - Tdap) 1988 Hepatitis B Vaccines (1 of 3 - 19+ 3-dose series) 1988 Cervical Cancer Screening: P ap Smear 1990 Pneumococcal Vaccine: 50+ Ye ars (1 of 1 - PCV) 2019 Zoster Vaccines (1 of 2) 2019 COVID-19 Vaccine (1 - 2023-2 5 season) 2024 Influenza Vaccine (#1) 2024 HIB Vaccines Aged Out No longer eligi ble based on patient's age to complete this topic HPV Vaccines Aged Out No longer eligi ble based on patient's age to complete this topic Hepatitis A Vaccines Aged Out No long er eligible based on patient's age to complete this topic IPV Vaccines Aged Out No longer eligi ble based on patient's age to complete this topic MMR Vaccines Aged Out No longer eligi ble based on patient's age to complete this topic Meningococcal ACWY Vaccine Aged Out N o longer eligible based on patient's age to complete this topic Meningococcal B Vaccine Aged Out No l onger eligible based on patient's age to complete this topic Pneumococcal Vaccine: Pediat rics (0 to 5 Years) and At-Risk Patients (6 to 64 Years) Aged Out No longer eligible b ased on patient's age to complete this topic RSV Immunization Patients Un teo 20 months Aged Out No longer eligible b ased on patient's age to complete this topic Varicella Vaccines Aged Out No longer eligible based on patient's age to complete this topic Care Teams Machine Taper Relationship Specialty Start Date End Date Bi Dennis MD [address] [place] [address] Dr [address] [place] PCP - General Internal Medicine 12/15/16
== END 2024-08-27 15:01 | disposition home or self-care (01) ==
LOC: HO.HMCH 13:53
PROVIDERS: PCP Internal Medicine
DX: E11.43 Type 2 diabetes mellitus with diabetic autonomic (poly)neuropathy (principal); Z79.4 Long term (current) use of insulin

== ENCOUNTER → 2024-08-27 13:53 | Outpatient (BNVA) | payer OTHER, SELFPAY | PROVIDERS: PCP Internal Medicine | DX: M19.011 Primary osteoarthritis, right shoulder (principal); J98.4 Other disorders of lung; G47.33 Obstructive sleep apnea (adult) (pediatric); J45.41 Moderate persistent asthma with (acute) exacerbation; J44.1 Chronic obstructive pulmonary disease with (acute) exacerbation; E78.00 Pure hypercholesterolemia, unspecified; E11.43 Type 2 diabetes mellitus with diabetic autonomic (poly)neuropathy; E11.51 Type 2 diabetes mellitus with diabetic peripheral angiopathy without gangrene; M43.16 Spondylolisthesis, lumbar region; M96.1 Postlaminectomy syndrome, not elsewhere classified; E66.01 Morbid (severe) obesity due to excess calories; F33.9 Major depressive disorder, recurrent, unspecified; F41.9 Anxiety disorder, unspecified; G47.00 Insomnia, unspecified; K21.9 Gastro-esophageal reflux disease without esophagitis; I10 Essential (primary) hypertension; K59.09 Other constipation; E55.9 Vitamin D deficiency, unspecified; R10.13 Epigastric pain; J45.20 Mild intermittent asthma, uncomplicated; K74.60 Unspecified cirrhosis of liver; Z79.4 Long term (current) use of insulin | CPT/HCPCS: 83036; 99212 ==

== ENCOUNTER 2024-09-09 13:53 | Outpatient (AMB) | payer OTHER, SELFPAY ==
[2024-09-09 14:07] VITALS: BP 110/78; PULSE 80; O2SAT 96; BMI 46.1
--- NOTE | 2024-09-09 14:07 | A.OFFVIS_ITS ---
Vital Signs 09/09/24 14:07 Height 5 ft 7 in Weight 294 lb 5.074 oz BMI 46.1 BP 110/78 Blood Pressure Location Lt brachial Position Sitting Pulse 80 Pulse Source Pulse Oximeter Pulse Oximetry (%) 96 Oxygen Delivery Method Room Air Intake Visit Reasons: Obstructive sleep apnea Intake Note: pt is here for follow up and states she is still short of breath with any activity, and needs new headgear and F40 full face mask was not sent, pt was shipped old mask style. Please resend. Brazing Machine Setter Required: No Allergies adhesive tape Allergy (Intermediate, Verified 09/09/24 14:23) Rash empagliflozin [From JARDIANCE] Allergy (Intermediate, Verified 09/09/24 14:23) Rash sitagliptin [From JANUVIA] Adverse Reaction (Severe, Verified 09/09/24 14:23) Rash,nausea, hypoglycemia metformin [METFORMIN] Adverse Reaction (Intermediate, Verified 09/09/24 14:23) Rash, GI upset jardiance Allergy (Intermediate, Uncoded 09/09/24 14:23) Rash metformin Allergy (Intermediate, Uncoded 09/09/24 14:23) Rash Medication List - Last Reconciled 09/09/24 by Camila Olmos MD [ABSORBANT HEAVY PADS As directed] albuterol sulfate 90 mcg/actuation 2 puffs PO Q4-6H PRN atorvastatin 40 mg PO BEDTIME 90 days budesonide-formoterol 160-4.5 mcg/actuation (Symbicort) 2 puffs inhalation BID cholecalciferol (vitamin D3) 50 mcg PO DAILY 90 days clotrimazole-betamethasone 1-0.05 % 1 appl topical BID [DISPOSABLE WIPES As directed] fluoxetine 10 mg PO DAILY fluticasone propionate 50 mcg/actuation 1 spray intranasal DAILY glipizide ER 10 mg PO BID insulin regular hum U-500 conc 200 units in AM, 150 units at lunchtime and 150 units at dinnertime subcutaneously; lisinopril 5 mg PO DAILY 90 days lorazepam 0.5 mg PO TID PRN 30 days lubiprostone 16 mcg (2 x 8 mcg) PO BID 30 days meloxicam 15 mg PO DAILY PRN 30 days metoclopramide HCl 10 mg PO TID PRN omeprazole 20 mg PO BID oxycodone 5 mg PO Q6-8H PRN 7 days pramipexole 1 mg PO TID 30 days sennosides (Black-Draught Lax-Senna) 8.6 mg PO BID spironolactone 100 mg PO BID 30 days tirzepatide (Mounjaro) 10 mg subcut QWEEK tramadol Take 1 to 2 tablets orally twice a day as needed for pain PRN; 25 days Do you need a note to return to daycare/school/sports/work: No HPI HPI Obstructive sleep apnea: Details: This 54 years old female is grossly obese, with diagnosis of obstructive sleep apnea. She also has restrictive lung disease and feels that she can not open up her lungs. However she has very little cough or wheezing. Continues to use budesonide-formoterol 160/4.5 2 puffs b.i.d. and albuterol only as needed. She remains tired and somewhat sleepy during the daytime, she is able to use C PAP only for about 4-1/2 hours per night She has been started on Mounjaro ( tirzepatide ) therapy, and is hoping that she will lose some weight. [facility]LY [facility], [facility] Medical History Vitamin D deficiency Degenerative joint disease of right shoulder Restrictive lung disease MATILDA (obstructive sleep apnea) Asthma COPD (chronic obstructive pulmonary disease) Blood dyscrasia Superficial bruising of lower leg Pain and swelling of right lower extremity Morbid obesity with BMI of 50.0-59.9, adult Pure hypercholesterolemia Fatigue Diabetes mellitus Pedal edema Nausea and vomiting Abdominal pain Atypical chest pain On beta kelsey at home Dyspnea on effort Asthma Sleep apnea with use of continuous positive airway pressure (CPAP) HTN (hypertension) Liver cirrhosis Pars defect of lumbar spine Spondylolisthesis, lumbar region Postlaminectomy syndrome, lumbar Spondylosis of lumbar spine Rectal bleeding Fatty pancreas Chronic constipation Cirrhosis of liver without ascites Body mass index [BMI] 50.0-59.9, adult Morbid (severe) obesity due to excess calories Depression Anxiety Insomnia Obstructive sleep apnea Periodic limb movement disorder Neuropathic pain of both feet GERD (gastroesophageal reflux disease) Gastroparesis Lumbar degenerative disc disease Benign essential hypertension Dyslipidemia Diastolic dysfunction Type 2 diabetes mellitus with diabetic autonomic (poly)neuropathy Surgical History H/O colonoscopy History of surgery History of esophagogastroduodenoscopy (EGD) H/O cardiac catheterization (~12/14/17) H/O section History of laryngoscopy (~02/10/19) History of ventral hernia repair (~2008) History of appendectomy History of lumbar discectomy Family History Father Diabetes mellitus Hypertension Mother Diabetes mellitus Hypertension Uterine cancer History of heart attack Social History Housing: Apartment Are you a primary laboratory animal caretaker to a significant other at home: No Do you presently have visiting nurse or other home services: Yes (Home Health Aide, VNA) Alcohol intake: never Patient Tobacco Use Status: Former Tobacco user Tobacco use type: Cigarette Years Smoked: 10 e-Cigarette/Vaping Use: Never Used Second Hand Smoke Exposure: No service: No Current occupational status: disabled Cognitive needs: No Hearing needs: No Vision needs: Yes Review of Systems Const All systems reviewed & are unremarkable except as noted in HPI and below Reports snoring Eyes Reports no additional complaints ENT Reports nasal congestion (MILD OFF AND ON) Card Denies chest pain, Denies irregular heart rhythm and Denies leg edema Resp Reports cough, Reports snoring and Reports wheezing (MILD INTERMITTENT WITH CONGESTED FEELING) GI Reports heartburn (CONTROLLED WITH OMEPRAZOLE) Reports no additional complaints Musc Reports back pain Skin/Breast Reports system reviewed and no additional complaints, except as documented Neuro Reports restless legs Psych Reports depression (CONTROLLED WITH MED) Aller/Immun Reports wheezing (MILD INTERMITTENT WITH CONGESTED FEELING) Physical Exam Vital Signs: Last Vital Signs Pulse 80 09/09/24 14:07 BP 110/78 09/09/24 14:07 Pulse Ox 96 09/09/24 14:07 Oxygen Delivery Method Room Air 09/09/24 14:07 BMI result Body Mass Index 46.1 Const General: comfortable, no acute distress, alert and awake Orientation/consciousness: patient oriented x3 HEENT Head: Yes normal to inspection General nose exam: No nasal polyps present and No nasal discharge present Face and sinus: Yes sinuses nontender Mouth: oropharynx normal Throat: No posterior oropharynx normal (NARROW AND CROWDED MALLAMPATI CLASS 4) Eyes General: appearance normal, both eyes and all related structures Neck Neck: Yes normal visual inspection, Yes no lymphadenopathy, Yes trachea midline and Yes no JVD Thyroid: Thyroid normal Chest Chest palpation & inspection: normal inspection of the chest, normal palpation of entire chest wall and no tenderness Resp Other: PERCUSSION NOTE IS NOT PERCEPTIBLE BECAUSE OF THICK CHEST WALL. BREATH SOUNDS ARE DISTANT WITH PROLONGED EXPIRATORY PHASE. SHE DOES NOT HAVE ANY WHEEZES OR CREPITATIONS, BUT BREATH SOUNDS ARE DIMINISHED OVER THE BASILAR AREAS. Cardio Palpation: normal PMI Rate: regular rate Rhythm: regular rhythm Heart sounds: no gallops and no murmurs GI Palpation (GI): Soft to palpation, nontender, No hepatosplenomegaly present and no masses Auscultation: normal bowel sounds Back/Spine/Pelvis Thoracic/Lumbar Spine: thoracic and lumbar spine normal to inspection and thoraco-lumbar ROM limited Skin General skin exam: no rashes or lesions noted Neuro General: patient oriented x3 and no focal motor deficits Cranial nerves: Yes CN's II-XII intact bilaterally Extrem General: Yes normal to inspection, Yes no clubbing, cyanosis or edema and Yes no calf tenderness Psych Speech and movement: Normal speech and movement present Results Reviewed Results Reviewed: Compliance report for the last 30 nights is reviewed. She has used 28/30 nights, 93%. Average use it per night 4 hours 29 minutes. Pressure 15 CMs There is a mild air leak and residual AHI 1.2 Assessment & Plan Assessment & Plan (1) Morbid obesity with BMI of 50.0-59.9, adult: Comment: Patient is grossly over weight and she is trying to reduce , being followed by Endocrinology service, She is on low carbs diet, and , trying to reduce her weight. Code(s): E66.01 - Morbid (severe) obesity due to excess calories; Z68.43 - Body mass index [BMI] 50.0-59.9, adult Category: Medical Plan: Talked about the diet. She has been started on tirzepatide injection , only 1 time so far. She is hopeful that she will lose some weight (2) MATILDA (obstructive sleep apnea): Comment: HAS RATHER VERY SEVERE OBSTRUCTIVE SLEEP APNEA. SHE NEEDS TO BE STARTED ON CPAP THERAPY. SHE IS WELL VERSED WITH CPAP USAGE. CPAP TITRATION STUDY WAS SUCCESSFUL , AND SHE WAS STARTED ON THE CPAP, FULLFACE MASK AND PRESSURE OF 15 CM. SHE HAS BEEN USING ALMOST EVERY NIGHT AND FOR AT LEAST 4 HOURS PER NIGHT . SHE CLAIMS THAT SHE IS BENEFITING FROM THE CPAP AND IS STARTING TO SLEEP BETTER. Code(s): G47.33 - Obstructive sleep apnea (adult) (pediatric) Category: Medical Plan: ADVISED THAT SHE SHOULD TRY TO USE CPAP EVERY NIGHT FOR CLOSE TO 5 HOURS PER NIGHT. F 40, FULLFACE MASK OF LARGE SIZE IS ORDERED. (3) Restrictive lung disease: Comment: Even though her PFT and office spirometry were basically normal, I think she has significant restrictive lung disease due to her morbid obesity. Code(s): J98.4 - Other disorders of lung Category: Medical Plan: ADVISED TO LOSE WEIGHT AND ALSO TRY TO DO DEEP BREATHING EXERCISES 2 OR 3 TIMES A DAY. (4) COPD (chronic obstructive pulmonary disease): Comment: PATIENT HAS LONG-STANDING HISTORY OF BRONCHIAL ASTHMA. CLINICALLY I THINK SHE HAS DEVELOPED OBSTRUCTIVE BRONCHIAL ASTHMA LEADING TO COPD. PULMONARY FUNCTION TEST SHOWED RESTRICTIVE LUNG DISORDER. WHICH IS RELATED TO HER GROSS OBESITY Code(s): J44.9 - Chronic obstructive pulmonary disease, unspecified Category: Medical Qualifiers: COPD type: COPD with acute exacerbation Qualified Code(s): J44.1 - Chronic obstructive pulmonary disease with (acute) exacerbation Plan: CONTINUE TO USE BUDESONIDE-FORMOTEROL 160/4.5 2 PUFFS B.I.D. AND ALBUTEROL HFA 2 PUFFS Q 6 HOURS P.R.N. Coding Level of Care Code Est Pt Level 3 (03600) Diagnoses Morbid obesity with BMI of 50.0-59.9, adult E66.01; Z68.43 MATILDA (obstructive sleep apnea) G47.33 Restrictive lung disease J98.4 Chronic obstructive pulmonary disease with acute exacerbation J44.1 COPD type: COPD with acute exacerbation
--- OUTSIDE RECORDS SUMMARY | 2024-09-09 16:37 | XMS_ITS | Clinical Summary ---
Author Organization [facility] Address [address] [facility] [address] [place] [address] Phone Care Team Providers Care Head Of Global Strategic Partnerships Name Role Phone Bi Dennis MD Primary Care Provider [phone]- [phone] Allergies Active Allergy Reactions Criticality Noted Date [...] syndrome 01/19/2020 Shortness of breath 01/12/2020 Immunizations Immunization Administration Dates Next Due Influenza, Quadrivalent, Preservative [...] [facility] [address] [phone] Liberty Hairston ARNP [address] [phone] Health Maintenance Due Date Last Done Comments Breast Cancer Screening 1969 Hepatitis B Vaccine (1 of 3 - 19+ 3-dose series) 1988 Pneumococcal Vaccine: 50+ Ye ars (1 of 2 - PCV) 1988 Colorectal Cancer Screening: Annual FOBT 2018 [...] AM EST) Hemoglobin A1C 11.9(H) (4.0-5.6) % [facility] Comment: MONITORING: In known diabetic patients, hemoglobin A1c targets should be discussed with health care provider. DIAGNOSTIC USE: ??The [place] Diabetes Association (ADA) and the World Health [...] Supplement 1 Testing performed or reported by [facility], a Service of [facility], [address] [place] [id number] Winter Cruz MD, Dispenser Operator [facility]# [id number] Blood (Blood, Venous) 05/06/2021 9:46 AM EST 05/06/2021 9:48 AM EST Linden Munoz MD LAB BLOOD ORDERABLES Final Re sult [facility] Organization Address City/State/ZIP Co de Phone Number [facility] from Last 3 Months or Most Recently Relevant to Health Maintenance Insurance [facility] ([id number]) [facility] ([id number]) Care Teams Head Of Global Strategic Partnerships Relationship Specialty Start Date End Date Bi Dennis MD [address] [place] [address] PCP - General Internal Medicine 04/11/21
--- OUTSIDE RECORDS SUMMARY | 2024-09-09 16:37 | XMS_ITS | Referral Summary ---
Author Organization [facility] Address [address] [place] [address] Care Team Providers Care Supervisor Scouring Pads Name Role Phone Bi Dennis Primary Care Provider [phone] Allergies Active Allergy Reactions Criticality Noted Date [...] Not on file Procedures * Due to [place] state law, this organization might not be sharing negative HIV tests. Procedure Name Priority Date/Time Associated Diagnosis Comments AMB EXTERNAL CT CHEST, OUTSI DE RESULT Routine 01/09/2019 from Last 3 Months or Most Recently Relevant to Health Maintenance Results * Due to [place] state law, this organization might not be sharing negative HIV tests. * CT Chest, Outside Result (01/09/2019) Anatomical Region Laterality Modality Other us In System Do Not Edit Provider-Not AMB EXTERNAL RESULT PROCEDURES Final Result from Last 3 Months or Most Recently Relevant to Health Maintenance Insurance [facility] Care Teams Supervisor Scouring Pads Relationship Specialty Start Date End Date Bi Dennis [address] [place] [address] dr Lavell Monte, [place] [address] PCP - General Internal Medicine 01/05/20
--- OUTSIDE RECORDS SUMMARY | 2024-09-09 16:37 | XMS_ITS | Clinical Summary ---
Author Organization [facility] Address [address] [place] [address] Care Team Providers Care Reporting Process Consultant Name Role Phone Bi Dennis MD Primary Care Provider [phone] Immunizations Name Administration Dates Next Due COVID-19, [...] Patient Date of Phone Billing Address Personal/Family [address] [place] [address] [address] [place] [address] MEDICAID MEDICARE PART B Care Teams Reporting Process Consultant Relationship Specialty Start Date End Date Bi Dennis MD [address] [place] [address] PCP - General Internal Medicine 11/03/19
--- OUTSIDE RECORDS SUMMARY | 2024-09-09 16:37 | XMS_ITS | Clinical Summary ---
Author Organization [facility] Address [address] [place] [address] Care Team Providers Care Laborer Aquatic Life Name Role Phone Bi Dennis Primary Care Provider [phone] Allergies Active Allergy Reactions Criticality Noted Date [...] 75+ series) 2044 Procedures * Due to [place] [employer] law, this organization might not be sharing negative HIV tests. Procedure Name Priority Date/Time Associated Diagnosis Comments AMB EXTERNAL CT CHEST, OUTSI DE RESULT Routine 01/09/2019 from Last 3 Months or Most Recently Relevant to Health Maintenance Results * Due to [place] [employer] law, this organization might not be sharing negative HIV tests. * CT Chest, Outside Result (01/09/2019) Anatomical Region Laterality Modality Other us In System Do Not Edit Provider-Not AMB EXTERNAL RESULT PROCEDURES Final Result from Last 3 Months or Most Recently Relevant to Health Maintenance Insurance [facility] Care Teams Laborer Aquatic Life Relationship Specialty Start Date End Date Bi Dennis [address] [place] [address] dr Lavell Monte, [place] [address] PCP - General Internal Medicine 01/05/20
--- OUTSIDE RECORDS SUMMARY | 2024-09-09 16:37 | XMS_ITS | Encounter Summary ---
Author Organization [facility] Address [address] [facility] [address] [place] [address] Phone Care Team Providers Care Engineering Professor Name Role Phone Bi Dennis MD Primary Care Provider [phone] Encounter Details Date Type Department Care Team (Late st Contact Info) Description 11/19/2023 Office Communication [facility] [address] [facility] [address] [place] [address] Liberty Hairston ARNP [address] [address] Social History Tobacco Use Types [...] [facility] P.[place]ouie [address] [facility] [address] [place] [address] Liberty Hairston ARNP [address] [facility] [address] [place] [address] documented as of this encounter Visit Diagnoses Not on filedocumented in this encounter Care Teams Engineering Professor Relationship Specialty Start Date End Date Bi Dennis MD [address] [place] [address] PCP - General Internal Medicine 04/11/21 documented as of this encounter
--- OUTSIDE RECORDS SUMMARY | 2024-09-09 16:37 | XMS_ITS | Encounter Summary ---
Author Organization [facility] [address] Address [address] [address] Phone Care Team Providers Care Rn Physician Office Name Role Phone Bi Dennis MD Primary Care Provider [phone] Encounter Details Date Type Department Care Team (Late Contact Info) Description 04/23/2024 Office Communication [facility] [address] [address] Liberty Hairston ARNP [address] [address] Social History Tobacco Use Types [...] Office Visit [facility] [address] [address] Liberty Hairston ARNP [address] [address] documented as of this encounter Visit Diagnoses Not on filedocumented in this encounter Care Teams Rn Physician Office Relationship Specialty Start Date End Date Bi Dennis MD [address] [place] [address] PCP - General Internal Medicine 04/11/21 documented as of this encounter
--- OUTSIDE RECORDS SUMMARY | 2024-09-09 16:37 | XMS_ITS | Clinical Summary ---
Author Organization [facility] Address [address] [place] [address] Care Team Providers Care Rn Travel Name Role Phone Bi Dennis MD Primary Care Provider [phone] Social History Tobacco Use Types Packs/Day Years [...] - 2023-2 5 season) 2024 Influenza Vaccine (Season Ended) 2025 HIB Vaccines Aged Out No longer eligi [...] age to complete this topic Care Teams Rn Travel Relationship Specialty Start Date End Date Bi Dennis MD [address] [place] [address] Dr [address] [place] PCP - General Internal Medicine 12/15/16
== END 2024-09-09 14:34 | disposition home or self-care (01) ==
LOC: HO.HPS 13:54
PROVIDERS: PCP Internal Medicine; Visit Provider Internal Medicine
DX: E66.01 Morbid (severe) obesity due to excess calories (principal); Z68.43 Body mass index [BMI] 50.0-59.9, adult; G47.33 Obstructive sleep apnea (adult) (pediatric); J98.4 Other disorders of lung; J44.1 Chronic obstructive pulmonary disease with (acute) exacerbation
CPT/HCPCS: 99213

== ENCOUNTER → 2024-09-09 13:53 | Outpatient (BNVA) | payer OTHER, SELFPAY | PROVIDERS: PCP Internal Medicine; Visit Provider Internal Medicine | DX: J44.1 Chronic obstructive pulmonary disease with (acute) exacerbation (principal); J98.4 Other disorders of lung; G47.33 Obstructive sleep apnea (adult) (pediatric); E66.01 Morbid (severe) obesity due to excess calories; Z68.43 Body mass index [BMI] 50.0-59.9, adult | CPT/HCPCS: 99212 ==

== ENCOUNTER 2024-12-02 14:03 | Outpatient (AMB) | payer OTHER, SELFPAY ==
--- OUTSIDE RECORDS SUMMARY | 2024-11-27 13:45 | XMS_ITS | Encounter Summary ---
Author Organization [facility] Address [address] [address] Phone Care Team Providers Care Community Health Counselor Name Role Phone Bi Dennis MD Primary Care Provider [phone] Reason for Visit * Reason Comments Chronic Kidney Disease Encounter Details Date Type Department Care Team ([facility] Contact Info) Description 11/27/2024 1:45 PM EDT Office Visit [facility] P. [address] [address] Liberty Hairston ARNP [address] [address] Stage 3a chronic kidney disease (HCC) (Primary Dx); Hypertension; Frequency of micturition; Hyperkalemia; Hypo-osmolality and hyponatremia; Vitamin D deficiency, not otherwise specified Social History Tobacco Use Types Packs/Day Years [...] on file documented as of this encounter Last Filed Vital Signs Vital Sign Reading Time Taken Comments Blood Pressure 118/78 11/27/2024 1:48 PM EDT Pulse 93 11/27/2024 1:48 PM EDT Temperature - - Respiratory Rate - - Oxygen Saturation 94% 11/27/2024 1:48 PM EDT Inhaled Oxygen Concentration - - Weight 129 kg (284 lb 6.4 oz) 11/27/2024 1:48 PM EDT Height - - Body Mass Index 48.82 11/22/2022 8:25 AM EDT documented in this encounter Progress Notes * Liberty Hairston ARNP - 11/27/2024 1:45 PM EDT Images from the original note were not included. Patient Name: Maria C Guevara, Female Date of : 1970, 54 y.o. Date: 11/27/2024 History of Present Illness Maria C Guevara is a 54 y.o. female with h/o HTN and difficult to control DM - followed by Endocrine to monitor closely. States improved Leg Edema. History of normal Creat Has MATILDA, now on CPAP. Strong FH of DM and renal failure, many relatives mom and dad were on dialysis Mom presumed DM nephropathy Her brother has a Kidney transplant with recurrent IGA His genetic testing is neg by margarette Maria C has Kidney Code and has a VUS of NPHS1 BP well controlled, running on the low side, states PCP reduced Lisinopril dose by half, ? to 2.5 mg QD - patient will call to confirm dose change. Renal US by Dr. Munoz in the office in 2022 was reported as normal. The following portions of the patient's chart were reviewed in this encounter and updated as appropriate: Allergies Meds Problems Med Hx Surg Hx Fam Hx Review of Systems Constitutional: Positive for malaise/fatigue. Negative for chills and fever. X 1 week - reports after moving residence in extreme heat weather conditions - believes was dehydrated - has been gradually feeling better but not herself HENT: Negative for nosebleeds. Eyes: Negative for blurred vision. Respiratory: Negative for cough and shortness of breath. Cardiovascular: Negative for chest pain, palpitations and leg swelling. Gastrointestinal: Negative for abdominal pain, diarrhea, nausea, vomiting and poor appetite. Genitourinary: Positive for frequency. Negative for dysuria, flank pain, hematuria and urgency. If BS elevated Musculoskeletal: Positive for back pain. Chronic low back r/t DJD Skin: Negative for rash. Neurological: Positive for tingling, weakness and numbness. Negative for headaches. Wilner legs r/t DM Neuropathy Endo/Heme/Allergies: Negative. Psychiatric/Behavioral: Negative. Medication List Current Outpatient Medications Medication Sig Dispense Refill Amitiza 8 MCG capsule atorvastatin (LIPITOR) 40 MG tablet cholecalciferol (VITAMIN D-3) 50 MCG (1999 UT) tablet TAKE ONE TABLET BY MOUTH EVERY MORNING ^1R1 30 tablet 2 Continuous Glucose Transmitter (Dexcom G6 Transmitter) misc FLUoxetine (PROzac) 10 MG capsule Take 10 mg by mouth 1 (one) time each day fluticasone (FLONASE) 50 MCG/ACT nasal spray furosemide (LASIX) 20 MG tablet TAKE THREE TABLETS BY MOUTH ONCE DAILY 90 tablet 3 glipiZIDE (GLUCOTROL) 10 MG tablet Take 10 mg by mouth in the morning and 10 mg in the evening. Take before meals. HumuLIN R U-500 KWIKPEN 500 UNIT/ML CONCENTRATED injection lisinopril (PRINIVIL,ZESTRIL) 5 MG tablet LORazepam (ATIVAN) 0.5 MG tablet meloxicam (MOBIC) 15 MG tablet metoclopramide (REGLAN) 10 MG tablet Mounjaro 5 MG/0.5ML solution auto-injector Inject 5 mg under the skin omeprazole (PriLOSEC) [address] capsule oxyCODONE (ROXICODONE) 5 MG immediate release tablet (Patient taking differently: every 8 (eight) hours if needed) pramipexole (MIRAPEX) 1 MG tablet primidone (MYSOLINE) 50 MG tablet spironolactone (ALDACTONE) 100 MG tablet Take 1 tablet (100 mg total) by mouth in the morning and 1tablet (100 mg total) in the evening. 180 tablet 3 Symbicort 80-4.5 MCG/ACT inhaler traMADol (ULTRAM) 50 MG tablet FreeStyle Precision Gerard Test test strip No current facility-administered medications for this visit. Allergy List Allergies Allergen Reactions Empagliflozin Hives and Rash Metformin Rash Sitagliptin Hives and Rash Physical Exam BP 118/78 (BP Location: Left upper arm, Patient Position: Sitting, BP Cuff Size: Adult) Pulse 93 Wt 284 lb 6.4 oz (129 kg) SpO2 94% BMI 48.82 kg/m?? Vitals reviewed. Constitutional: She is oriented to person, place, and time. She does not appear ill. No distress. HEENT: Mouth/Throat: Oropharynx is clear and moist. Eyes: Conjunctivae are normal. Neck: No JVD present. Cardiovascular: Normal rate and regular rhythm. She exhibits no edema. Pulmonary/Chest: Effort normal and breath sounds normal. Abdominal: Soft. There is no abdominal tenderness. No CVA tenderness Neurological: She is alert and oriented to person, place, and time. Skin: Skin is warm and dry. No rash noted. No erythema. Psychiatric: She has a normal mood and affect. Her behavior is normal. Judgment normal. Chemistry Lab Units 05/22/24 1116 04/21/24 0757 11/13/23 0000 10/10/23 0000 CREATININE mg/dL 1.23* 1.09* 1.37* 0.92 BUN mg/dL 22 21 22* 18 POTASSIUM mmol/L 5.1 5.3* 4.8 4.8 SODIUM mmol/L 136 131* 132* 131* CO2 mmol/L 18* 20 24 20 CHLORIDE mmol/L 99 94* -- -- ALBUMIN g/dL 4.0 4.3 -- -- EGFRNAFR -- -- 40 74 EGFR mL/min/1.73 52* 60 -- -- WBC AUTO x10E3/uL -- 9.4 -- -- HEMATOCRIT % -- 42.9 39.7 40.3 HEMOGLOBIN g/dL -- 13.6 13.3 12.9 PLATELETS AUTO x10E3/uL -- 279 268 257 Bone Mineral Lab Units 05/22/24 1116 04/21/24 0757 11/13/23 0000 10/10/23 0000 CALCIUM mg/dL 10.1 9.8 10.3 9.5 PHOSPHORUS mg/dL 4.3 3.4 -- -- PTH pg/mL -- 24 -- -- VIT D 25 HYDROXY ng/mL -- 40.2 -- -- Urine Lab Units 04/21/24 0757 ALB MG/G CREAT UR mg/g creat 23 Iron Studies Lab Units 04/21/24 0757 FERRITIN ng/mL 66 TIBC ug/dL 360 IRON SATURATION % 35 Assessment & Plan Problem List Items Addressed This Visit Hypertension Hypo-osmolality and hyponatremia (Chronic) Stage 3a chronic kidney disease (HCC) - Primary Hyperkalemia (Chronic) Vitamin D deficiency, not otherwise specified Other Visit Diagnoses Frequency of micturition CKD Stage 3a r/t DM and HTN: Stable Creatinine 1.2, GFR 52 as of 05/2024 No Anemia No proteinuria Avoid Nephrotoxins On low dose Lisinopril Optimize BP and DM control Had Renal lab work done just today, awaiting results Hypertension: Blood pressure well controlled On Spironolactone 100 mg BID and Lisinopril 5 mg QD Monitor BP at home if possible No Edema present No medication changes made today Follow low NA diet Avoid NSAIDs/Decongestant medication No medication changes made today 3. Hyponatremia: NA level low at 131 as of 04/21/24 Restrict oral fluids Rechecking this On Spironolactone Off Furosemide No present Edema Hgb improved to 10 from 11 - gets thirsty 4. Vitamin D deficiency: On vitamin D3 2,000U QD Had lab work done today which included a vitamin D 25 level 5. Hyperkalemia: K level WNL at 5.1 as of 05/2024 Follow low K diet - d/w pt foods to avoid Will monitor 6. Urinary frequency/Malaise: Will check Urinalysis w/ Urine culture to rule out UTI Orders Placed This Encounter Urinalysis with microscopic Urine culture Urine Albumin / Creatinine Ratio Urine Protein / creatinine ratio PTH, intact Renal function panel Urine Albumin / Creatinine Ratio Urine Protein / creatinine ratio CBC Return in about 6 months (around 05/30/2025) for Next scheduled follow-up with JANNY Dyer Cosigned by Francisco J Hawkins MD at 11/27/2024 7:34 PM EDT documented in this encounter Plan of Treatment Upcoming Encounters Date Type Department Care Team (Late st Contact Info) Description 05/28/2025 1:30 PM EST Office Visit [facility] [address] [address] Liberty Hairston ARNP [address] [address] Scheduled Orders Name Type Priority Associated Diagnoses Orde r Schedule PTH, intact Lab Routine Stage 3a chronic kidney disease (HCC) Hypertension Frequency of micturition Expected: 05/10/2025, Expires: 06/20/2025 Renal function panel Lab Routine Stage 3a chronic kidney disease (HCC) Hypertension Frequency of micturition Expected: 05/10/2025, Expires: 06/20/2025 Urine Albumin / Creatinine Ratio Lab Routine Stage 3a chronic kidney disease (HCC) Hypertension Frequency of micturition Expected: 05/10/2025, Expires: 06/20/2025 Urine Protein / creatinine ratio Lab Routine Stage 3a chronic kidney disease (HCC) Hypertension Frequency of micturition Expected: 05/10/2025, Expires: 06/20/2025 CBC Lab Routine Stage 3a chronic kidney disease (HCC) Hypertension Frequency of micturition Expected: 05/10/2025, Expires: 06/20/2025 documented as of this encounter Procedures Procedure Name Priority Date/Time Associated Diagnosis Comments RESULT Routine 11/27/2024 2:49 PM EDT MICROSCOPIC EXAMINATION - DO NOT USE Routine 11/27/2024 2:49 PM EDT PROTEIN / CREATININE RATIO, URINE Routine 11/27/2024 2:49 PM EDT Stage 3a chronic kidney disease (HCC) Hypertension Frequency of micturition URINE ALBUMIN / CREATININE RATIO Routine 11/27/2024 2:49 PM EDT Stage 3a chronic kidney disease (HCC) Hypertension Frequency of micturition URINALYSIS WITH MICROSCOPIC Routine 11/27/2024 2:49 PM EDT Stage 3a chronic kidney disease (HCC) Hypertension Frequency of micturition URINE CULTURE Routine 11/27/2024 2:49 PM EDT Stage 3a chronic kidney disease (HCC) Hypertension Frequency of micturition documented in this encounter Results * Result (11/27/2024 2:49 PM EDT) Result Comment [facility] Comment: Mixed urogenital claudia 10,000-25,000 colony forming units per mL 11/27/2024 2:49 PM EDT 11/27/2024 [facility] LAB MICROBIOLOGY - GENERAL ORDERABLES Final Result [facility] [address], [address] [place] [address] * Microscopic Examination (11/27/2024 2:49 PM EDT) WBC, Urine 0-5 0 - 5 /hpf [facility] RBC, Urine 0-2 0 - 2 /hpf [facility] Squamous Epithelial, Urine 0-10 0 - 10 /hpf [facility] Casts None seen None seen /lpf [facility] Bacteria, Urine Few None seen/Few [facility] 11/27/2024 2:49 PM EDT 11/27/[address] [facility] MICROBIOLOGY - GENERAL ORDERABLES Final Result [facility] [address] [place] [address] * Urine Protein / creatinine ratio (11/27/2024 2:49 PM EDT) Creatinine, Ur 87.7 Not Estab. mg/dL [facility] Protein, Ur 8.4 Not Estab. mg/dL [facility] Urine Protein/Creatin ine Ratio 96 0 - 200 mg/g creat [facility] Urine Urine specimen obtained by clean catch procedure / Unknown 11/27/2024 2:49 PM EDT 11/27/2024 [facility] LAB URINE ORDERABLES Final Result Performing Organization Address City/[facility]/ZIP Co de Phone Number [facility] [address] [place] [address] * Urine Albumin / Creatinine Ratio (11/27/2024 2:49 PM EDT) Albumin, Urine 6.9 Not Estab. ug/mL [facility] Albumin/Creatin ine Ratio 8 0 - 29 mg/g creat [facility] Comment: Normal: 0 - 29 Moderately increased: 30 - 300 Severely increased: >300 Urine Urine specimen obtained by clean catch procedure / Unknown 11/27/2024 2:49 PM EDT 11/27/2024 [facility] LAB URINE ORDERABLES Final Result Performing Organization Address [facility] Co de Phone Number [facility] [address] [place] [address] * Urine culture (11/27/2024 2:49 PM EDT) Culture Result, Urine Final report [facility] Urine Urine specimen obtained by clean catch procedure / Unknown 11/27/2024 2:49 PM EDT 11/27/2024 Comment: [facility] LAB URINE ORDERABLES Final Result Performing Organization Address City/[facility]/ZIP Co de Phone Number [facility] [address], [address] [place] [address] * (ABNORMAL) Urinalysis with microscopic (11/27/2024 2:49 PM EDT) Specific [place], Urine >=1.030(A) 1.005 - 1.030 [facility] pH Urine 5.5 5.0 - 7.5 [facility] Color, Urine Yellow Yellow [facility] Appearance Urine Clear Clear [facility] [phone] WBC Esterase Urine Negative Negative [facility] [phone] Protein, Ur Trace Negative/Tra ce [facility] [phone] Glucose, Ur 3+(A) Negative [facility] Ketones, Urine Negative Negative [facility] [phone] Blood Urine Negative Negative [facility] Bilirubin Urine Negative Negative [facility] Urobilinogen Urine 0.2 0.2 - 1.0 mg/dL [facility] Nitrite, Urine Negative Negative [facility] Microscopic Examination Comment [facility] Comment:Microscopic follows if indicated. Other Microsc. Observations See below: [facility] Comment:Microscopic was shweta cated and was performed. Urine Urine specimen obtained by clean catch procedure / Unknown 11/27/2024 2:49 PM EDT 11/27/2024 us Liberty Hairston [facility] LAB URINE ORDERABLES Final Result [facility] [address] [place] [address] documented in this encounter Visit Diagnoses Diagnosis Stage 3a chronic kidney disease (HCC)- Primary Hypertension Frequency of micturition Hyperkalemia Hypo-osmolality and hyponatremia Vitamin D deficiency, not otherwise specified documented in this encounter Care Teams Community Health Counselor Relationship Specialty Start Date End Date Bi Dennis MD [address] [place] [address] PCP - General Internal Medicine 04/11/21 documented as of this encounter
--- NOTE | 2024-12-02 14:23 | MHC.PC.OV ---
Vital Signs 12/02/24 14:24 Height 5 ft 5 in Weight 283 lb 4 oz BMI 47.1 BP 120/64 Blood Pressure Location Lt brachial Position Sitting Respiration 18 Pulse 83 Pulse Source Pulse Oximeter Pulse Oximetry (%) 97 Oxygen Delivery Method Room Air Intake Visit Reasons: dm A1C needed/vit d/matilda/asthma/copd Cherry Cutter Required: No Accompanied by: Self / Same As Patient Allergies adhesive tape Allergy (Intermediate, Verified 12/02/24 15:01) Rash empagliflozin (From JARDIANCE) Allergy (Intermediate, Verified 12/02/24 15:01) Rash sitagliptin (From JANUVIA) Adverse Reaction (Severe, Verified 12/02/24 15:01) Rash,nausea, hypoglycemia metformin (METFORMIN) Adverse Reaction (Intermediate, Verified 12/02/24 15:01) Rash, GI upset jardiance Allergy (Intermediate, Uncoded 12/02/24 15:01) Rash metformin Allergy (Intermediate, Uncoded 12/02/24 15:01) Rash Medication List - Last Reconciled 12/02/24 by THEA Reis [ABSORBANT HEAVY PADS As directed] albuterol sulfate 90 mcg/actuation 2 puffs PO Q4-6H PRN atorvastatin 40 mg PO BEDTIME 90 days budesonide-formoterol 160-4.5 mcg/actuation (Symbicort) 2 puffs inhalation BID cholecalciferol (vitamin D3) 50 mcg PO DAILY 90 days clotrimazole-betamethasone 1-0.05 % 1 appl topical BID [DISPOSABLE WIPES As directed] fluoxetine 10 mg PO DAILY fluticasone propionate 50 mcg/actuation 1 spray intranasal DAILY glipizide ER 10 mg PO BID insulin regular hum U-500 conc 200 units in AM, 150 units at lunchtime and 150 units at dinnertime subcutaneously; lisinopril 5 mg PO DAILY 90 days lorazepam 0.5 mg PO TID PRN 30 days lubiprostone 16 mcg (2 x 8 mcg) PO BID 60 days meloxicam 15 mg PO DAILY PRN 30 days metoclopramide HCl 10 mg PO TID PRN omeprazole 20 mg PO BID oxycodone 5 mg PO Q6-8H PRN 7 days pramipexole 1 mg PO TID 30 days sennosides (Black-Draught Lax-Senna) 8.6 mg PO BID spironolactone 100 mg PO BID 30 days tirzepatide (Mounjaro) 10 mg subcut QWEEK tramadol Take 1 to 2 tablets orally twice a day as needed for pain PRN; 25 days Tobacco use date assessed: 12/02/24 Dental Screening Dental Screen Date: 12/02/24 Did you have a dental visit in the last 12 months?: Yes Did you have a dental problem in the last 6 months where you did not have access to dental care?: No Was dental information given to patient?: Patient has dentist HPI dm A1C needed/vit d/matilda/asthma/copd HPI Details The patient is a 54-year-old female presenting with hyperkalemia and type 2 diabetes mellitus. The patient reports an elevated potassium level identified during recent blood work conducted by her music critic. She is scheduled for follow-up testing next week to monitor the potassium levels. The patient is currently taking spironolactone, a potassium-sparing diuretic, which may contribute to the elevated potassium levels. The patient has a history of type 2 diabetes mellitus, with recent fluctuations in blood glucose levels. She experiences episodes of hypoglycemia, particularly at night, with blood glucose levels dropping as low as 60 mg/dL. The patient is on insulin therapy and reports a decreased appetite, possibly due to the use of Mounjaro, an appetite suppressant. The patient also reports constipation, which she attributes to the use of Mounjaro. She experiences difficulty with bowel movements, requiring increased fluid intake to alleviate symptoms. Additionally, the patient reports chronic lower back pain and leg cramps, which she associates with inadequate hydration. [facility] Medical History Vitamin D deficiency Degenerative joint disease of right shoulder Restrictive lung disease MATILDA (obstructive sleep apnea) Asthma COPD (chronic obstructive pulmonary disease) Blood dyscrasia Superficial bruising of lower leg Pain and swelling of right lower extremity Morbid obesity with BMI of 50.0-59.9, adult Pure hypercholesterolemia Fatigue Diabetes mellitus Pedal edema Nausea and vomiting Abdominal pain Atypical chest pain On beta kelsey at home Dyspnea on effort Asthma Sleep apnea with use of continuous positive airway pressure (CPAP) HTN (hypertension) Liver cirrhosis Pars defect of lumbar spine Spondylolisthesis, lumbar region Postlaminectomy syndrome, lumbar Spondylosis of lumbar spine Rectal bleeding Fatty pancreas Chronic constipation Cirrhosis of liver without ascites Body mass index [BMI] 50.0-59.9, adult Morbid (severe) obesity due to excess calories Depression Anxiety Insomnia Obstructive sleep apnea Periodic limb movement disorder Neuropathic pain of both feet GERD (gastroesophageal reflux disease) Gastroparesis Lumbar degenerative disc disease Benign essential hypertension Dyslipidemia Diastolic dysfunction Type 2 diabetes mellitus with diabetic autonomic (poly)neuropathy Surgical History H/O colonoscopy History of surgery History of esophagogastroduodenoscopy (EGD) H/O cardiac catheterization (~12/14/17) H/O section History of laryngoscopy (~02/10/19) History of ventral hernia repair (~2008) History of appendectomy History of lumbar discectomy Family History Father Diabetes mellitus Hypertension Mother Diabetes mellitus Hypertension Uterine cancer History of heart attack Social History Housing: Apartment Are you a primary care coordinator to a significant other at home: No Do you presently have visiting nurse or other home services: Yes (Home Health Aide, VNA) Alcohol intake: never Patient Tobacco Use Status: Former Tobacco user Tobacco use type: Cigarette Years Smoked: 10 e-Cigarette/Vaping Use: Never Used Second Hand Smoke Exposure: No service: No Current occupational status: disabled Cognitive needs: No Hearing needs: No Vision needs: Yes Questionnaire PHQ-9 Over the last 2 weeks, how often have you been bothered by any of the following problems? 1. Little interest or pleasure in doing things: several days 2. Feeling down, depressed, or hopeless: several days 3. Trouble falling or staying asleep, or sleeping too much: several days 4. Feeling tired or having little energy: several days 5. Poor appetite or overeating: several days 6. Feeling bad about yourself - or that you are a failure or have let yourself or your family down: not at all 7. Trouble concentrating on things, such as reading the newspaper or watching television: not at all 8. Moving or speaking so slowly that other people could have noticed. Or the opposite - being so fidgety or restless that you have been moving around a lot more than usual: not at all 9. Thoughts that you would be better off or of hurting yourself in some way: not at all Total score: 5 86459 - PHQ-9 Billing: Yes Source: Developed by Drs. Tim Manning, Estephanie Newell, Lawrence Moreno and colleagues, with an educational amira from [employer]. Thrive Questionnaire Date Thrive assessed: 12/02/24 I am a: Patient What is your living situation today?: I have a steady place to live Within the past 12 months, did the food you bought not last and you didn't have the money to get more?: I choose not to answer this question Within the past 12 months, did you worry whether your food would run out before you got money to buy more?: I choose not to answer this question Do you have trouble paying for medicines?: No Do you have trouble getting transportation to medical appointments?: No Do you have trouble paying your heating and electricity bill?: No Do you have trouble taking care of your child, family member or friend?: No Do you have trouble with day-to-day activities such as bathing, preparing meals, shopping, managing finances, etc.?: No Are you currently unemployed and looking for a job?: No Are you interested in more education?: No Please select the resources that you would like help with: None Currently or been in a relationship where the following occur: No concerns reported THRIVE Score: 0 AUDIT C Alcohol Use Questionnaire (AUDIT-C) 1. How often do you have a drink containing alcohol?: Never 3. How often do you have six or more drinks on one occasion?: Never Total Score: 0 CEDRIC-7 AMB Questionnaire CEDRIC-7 Date CEDRIC - 7 assessed: 12/02/24 Feeling nervous, anxious, or on edge: 1 = Several days Not being able to stop or control worryin = Several days Worrying too much about different things: 1 = Several days Trouble relaxin = Nearly every day Being so restless that it is hard to sit still: 0 = Not at all Becoming easily annoyed or irritable: 0 = Not at all Feeling afraid as if something awful might happen: 1 = Several days Total CEDRIC-7 score (0-4 normal; 5-9 mild; 10-14 moderate; 15-21 severe): 7 Source: Developed by Drs. Tim Manning, Estephanie Newell, Lawrence Moreno and colleagues, with an educational amira from [employer]. CEDRIC-7 Assessment Billing CEDRIC-7 Assessment Tool: CEDRIC-7 Assessment 51833 Review of Systems Const Denies headache(s) Eyes Denies loss of vision ENT Denies vertigo, Denies dizziness, Denies headache(s) and Denies sore throat Card Denies chest pain, Denies leg edema and Denies lightheadedness Resp Denies cough, Denies hemoptysis and Denies wheezing GI Denies abdominal pain, Denies melena, Denies constipation, Denies diarrhea and Denies vomiting Denies urinary frequency, Denies dysuria and Denies urinary urgency Musc Reports back pain, Reports arthralgias (Right shoulder), Denies joint swelling, Denies numbness and Denies tingling Neuro Denies Abnormal speech present, Denies behavioral changes, Denies vertigo, Denies dizziness, Denies headache(s), Denies loss of vision, Denies memory loss, Denies numbness and Denies tingling Psych Denies anxiety, Denies behavioral changes, Denies depression, Denies memory loss and Denies panic attacks Alhaji/Lymph Denies easy bleeding and Denies easy bruising Aller/Immun Denies wheezing Physical exam (Primary Care) Vital Signs: Last Vital Signs Pulse 83 12/02/24 14:24 Resp 18 12/02/24 14:24 BP 120/64 12/02/24 14:24 Pulse Ox 97 12/02/24 14:24 Oxygen Delivery Method Room Air 12/02/24 14:24 BMI result Body Mass Index 47.1 Tobacco/Smoking Status: Tobacco use Status Tobacco use date assessed 12/02/24 12/02/24 14:30 Patient Tobacco Use Status Former Tobacco user 12/02/24 14:30 Tobacco use type Cigarette 12/02/24 14:30 e-Cigarette/Vaping Use Never Used 12/02/24 14:30 PHQ-9: PHQ-9 Score PHQ-9: Total score 5 12/02/24 14:54 Thrive Assessment: Date of Thrive Assessment Date Thrive assessed 12/02/24 12/02/24 14:30 Currently or been in a relationship where the following occur: No concerns reported Const General: healthy appearing, no acute distress, alert and awake Nutritional Appearance: well nourished Orientation/consciousness: oriented to person, oriented to place and oriented to time HENMT Ears: TM's normal bilaterally General nose exam: Normal nasal mucous membranes and turbinates present Eyes Conjunctivae: conjunctivae normal Sclerae: sclerae normal Pupils: Equal, round and reactive pupils present Neck Neck: Yes no lymphadenopathy and Yes no JVD Thyroid: Thyroid normal Carotids: no bruits Resp Effort & Inspection: normal respiratory effort and not tachypneic Auscultation: no crackles, no rales, no rhonchi and no wheezes Cardio Rate: regular rate Rhythm: regular rhythm Heart sounds: no murmurs and normal S1 and S2 GI Palpation (GI): Soft to palpation, nontender, no hepatomegaly and no splenomegaly Auscultation: normal bowel sounds Back/Spine/Pelvis Thoracic/Lumbar Spine: lumbar spinal tenderness Skin General skin exam: no rashes or lesions noted and dry skin Neuro General: oriented to person, oriented to place and oriented to time Cranial nerves: Yes Equal, round and reactive pupils present Speech: No Abnormal speech present Gait exam (Neuro): Normal gait present Motor exam (neuro): no tremor noted Extrem Right upper extremity: full ROM and shoulder/upper arm Details: normal ROM; no tenderness and no swelling Left upper extremity: full ROM Right lower extremity: full ROM; no edema Left lower extremity: full ROM; no edema Psych Mental Status: mental status grossly normal Speech and movement: Normal speech and movement present Affect: normal affect Attitude: cooperative Thought process: Normal thought process present Results Reviewed Results Reviewed: A1c in office 9.6% Coding Level of Care Code Est Pt Level 4 (42377) Diagnoses Primary osteoarthritis of right shoulder M19.011 Osteoarthritis type: primary Restrictive lung disease J98.4 MATILDA (obstructive sleep apnea) G47.33 Moderate persistent asthma with acute exacerbation J45.41 Asthma severity: moderate Asthma persistence: persistent Asthma complication type: with acute exacerbation Chronic obstructive pulmonary disease with acute exacerbation J44.1 COPD type: COPD with acute exacerbation Pure hypercholesterolemia E78.00 Fatigue, unspecified type R53.83 Fatigue type: unspecified Type 2 diabetes mellitus with diabetic polyneuropathy, with long-term current use of insulin E11.42; Z79.4 Diabetes mellitus type: type 2 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 insulin use: with shelter use Diabetes mellitus complication status: with neurologic complications Diabetes mellitus complication detail: with polyneuropathy Spondylolisthesis, lumbar region M43.16 Postlaminectomy syndrome, lumbar M96.1 Morbid (severe) obesity due to excess calories E66.01 Episode of recurrent major depressive disorder, unspecified depression episode severity F33.9 Depression Type: major depressive disorder Major depression recurrence: recurrent Active/Remission status: currently active Major depression episode severity: unspecified Anxiety F41.9 Insomnia, unspecified type G47.00 Insomnia type: unspecified Gastroesophageal reflux disease without esophagitis K21.9 Esophagitis presence: without esophagitis Benign essential hypertension I10 Chronic constipation K59.09 Vitamin D deficiency E55.9 Additional Codes CEDRIC-7 Assessment Billing - CEDRIC-7 Assessment Tool: CEDRIC-7 Assessment 77418 ([id number]) PHQ-9 - 22220 - PHQ-9 Billing: Yes ([id number]) Time Spent (min) 42 Assessment & Plan Assessment & Plan (1) Degenerative joint disease of right shoulder: Code(s): M19.011 - Primary osteoarthritis, right shoulder Category: Medical Qualifiers: Osteoarthritis type: primary Qualified Code(s): M19.011 - Primary osteoarthritis, right shoulder Plan: Continue modified activity, meloxicam 15 mg daily p.r.n., oxycodone 5 mg q.6 to 8 hours p.r.n., tramadol 50 mg 1-2 tabs b.i.d. p.r.n. (2) Restrictive lung disease: Comment: Even though her PFT and office spirometry were basically normal, I think she has significant restrictive lung disease due to her morbid obesity. Code(s): J98.4 - Other disorders of lung Category: Medical Plan: Pulmonology Suspects restrictive disease due to morbid obesity. Weight loss recommended, continue dieting and exercise as tolerated (3) MATILDA (obstructive sleep apnea): Comment: HAS RATHER VERY SEVERE OBSTRUCTIVE SLEEP APNEA. SHE NEEDS TO BE STARTED ON CPAP THERAPY. SHE IS WELL VERSED WITH CPAP USAGE. CPAP TITRATION STUDY WAS SUCCESSFUL , AND SHE WAS STARTED ON THE CPAP, FULLFACE MASK AND PRESSURE OF 15 CM. SHE HAS BEEN USING ALMOST EVERY NIGHT AND FOR AT LEAST 4 HOURS PER NIGHT . SHE CLAIMS THAT SHE IS BENEFITING FROM THE CPAP AND IS STARTING TO SLEEP BETTER. Code(s): G47.33 - Obstructive sleep apnea (adult) (pediatric) Category: Medical Plan: Continue CPAP (4) Asthma: Comment: KNOWN TO HAVE MILD BRONCHIAL ASTHMA/ COPD OVERLAP SYNDROME. DOING WELL WITH CURRENT TREATMENT. Code(s): J45.909 - Unspecified asthma, uncomplicated Category: Medical Qualifiers: Asthma severity: moderate Asthma persistence: persistent Asthma complication type: with acute exacerbation Qualified Code(s): J45.41 - Moderate persistent asthma with (acute) exacerbation Plan: Continue Symbicort 2 puffs b.i.d., albuterol sulfate 2 puffs q.4-6 hours p.r.n. (5) COPD (chronic obstructive pulmonary disease): Comment: PATIENT HAS LONG-STANDING HISTORY OF BRONCHIAL ASTHMA. CLINICALLY I THINK SHE HAS DEVELOPED OBSTRUCTIVE BRONCHIAL ASTHMA LEADING TO COPD. PULMONARY FUNCTION TEST SHOWED RESTRICTIVE LUNG DISORDER. WHICH IS RELATED TO HER GROSS OBESITY Code(s): J44.9 - Chronic obstructive pulmonary disease, unspecified Category: Medical Qualifiers: COPD type: COPD with acute exacerbation Qualified Code(s): J44.1 - Chronic obstructive pulmonary disease with (acute) exacerbation Plan: Continue Symbicort 2 puffs b.i.d., albuterol sulfate 2 puffs q.4-6 hours p.r.n. (6) Pure hypercholesterolemia: Code(s): E78.00 - Pure hypercholesterolemia, unspecified Category: Medical Plan: LDL within goal on blood work in May. Patient did not complete follow up labs. Encouraged to get labs done as soon as possible. Encouraged low-cholesterol diet and activity as tolerated CONTINUE ATORVASTATIN 40 MG AT BEDTIME (7) Fatigue: Code(s): R53.83 - Other fatigue Category: Medical Qualifiers: Fatigue type: unspecified Qualified Code(s): R53.83 - Other fatigue Plan: Multifactorial. MATILDA, COPD, asthma, restrictive lung disease due to morbid obesity. Continue treatment plan to manage these chronic illnesses (8) Diabetes mellitus: Comment: Out of control in the past. Has since been more compliant with medication with better control. 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 Patient was seen by [facility] grand scribe who increased her mounjaro to 10 mg Q weekly. Increased her insulin dosages. Continues glipizide ER 10 mg BID. Patient reports that she frequently forgets to take the evening dose and will start sitting an alarm to remind herself. The patient also reports episodes of low blood sugars in the 60s associated with not eating due to decreased appetite. Reinforced a diet low in sugar/carbohydrate and activity as tolerated. Educated the patient about medication compliance and also that she has to eat if she is taking insulin. Follow up with Endocrinology as scheduled (9) Spondylolisthesis, lumbar region: Comment: Nevro spinal cord stimulator trial was very effective to treat her pain she reports 90% of the pain relief. She reports up to 100 pain relieve when she is at rest. She reports no pain when she is in the situations when iron her pain was previously bothering her a lot. I will schedule her for implantation of spinal cord stimulator. Another consideration for the Nevro machine is this patient has obstructive sleep apnea and it is very difficult to achieve sedation for wake up during the surgery. With Nevro machine the insertion of the spinal cord stimulator not require awareness in the middle of the case. Code(s): M43.16 - Spondylolisthesis, lumbar region Category: Medical Plan: Reinforced activity and weight-lifting restrictions Avoid aggravating activities that worsens symptoms Balance activity with rest to allow the spine to heal Apply heat or cold pack to reduce pain and inflammation Continue pain medications as ordered p.r.n. (10) Postlaminectomy syndrome, lumbar: Code(s): M96.1 - Postlaminectomy syndrome, not elsewhere classified Category: Medical Plan: Same as above (11) Morbid (severe) obesity due to excess calories: Code(s): E66.01 - Morbid (severe) obesity due to excess calories Category: Medical Plan: Reinforced low-cholesterol diet and activity as tolerated. Special attention to weight loss progress (12) Depression: Code(s): F32.9 - Major depressive disorder, single episode, unspecified Category: Medical Qualifiers: Depression Type: major depressive disorder Major depression recurrence: recurrent Active/Remission status: currently active Major depression episode severity: unspecified Qualified Code(s): F33.9 - Major depressive disorder, recurrent, unspecified Plan: Encouraged CBT Continue fluoxetine 10 mg daily Denies SI/HI (13) Anxiety: Code(s): F41.9 - Anxiety disorder, unspecified Category: Medical Plan: Encouraged CBT Continue fluoxetine 10 mg daily, lorazepam 0.5 mg t.i.d. p.r.n. (14) Insomnia: Code(s): G47.00 - Insomnia, unspecified Category: Medical Qualifiers: Insomnia type: unspecified Qualified Code(s): G47.00 - Insomnia, unspecified Plan: Sleep hygiene: Exercise regularly, but not within 4 hour of bedtime. Limit fluid intake and avoid large meals in the evening hours. Limit overall caffeine, tobacco, and alcohol intake; no night cap. Maintain a regular sleep-wake cycle without naps in the daytime. Lie down to sleep only when feeling sleepy; leave the bed if unable to fall asleep within 20 minutes; stay in bed for only the hours actually sleeping(but not less than 5 hour in 24 hours). (15) GERD (gastroesophageal reflux disease): Comment: Upper GI series done in 2019 came out normal Code(s): K21.9 - Gastro-esophageal reflux disease without esophagitis Category: Medical Qualifiers: Esophagitis presence: without esophagitis Qualified Code(s): K21.9 - Gastro-esophageal reflux disease without esophagitis Plan: Do not eat meals or drink carbonated beverages within 3 hr of bedtime Decrease the amount of fried, fatty, and spicy foods to decrease gastric acid production Raise the head of the bed using 4 to 6-inch blocks, especially if nocturnal symptoms are present Lose weight if indicated; avoid tight-fitting clothing, especially around the waist Avoid foods that relax the Lower esophageal sphincter (chocolate, peppermint, high-fat foods etc.,) Continue omeprazole 20 mg b.i.d. (16) Benign essential hypertension: Code(s): I10 - Essential (primary) hypertension Category: Medical Plan: Blood pressure 120/64 Encouraged DASH diet and activity as tolerated-goal systolic is less than 130 mmhg Reinforced low-sodium diet Continue lisinopril 5 mg daily, spironolactone 100 mg b.i.d. (17) Chronic constipation: Comment: Continue Senna and Lubiprotone Code(s): K59.09 - Other constipation Category: Medical Plan: Increase fluids and dietary fiber. Continue lubiprostone 16 mcg, senna 8.6 mg b.i.d. (18) Vitamin D deficiency: Code(s): E55.9 - Vitamin D deficiency, unspecified Category: Medical Plan: Continue cholecalciferol 50 mcg daily Orders: Orders AMB Hemoglobin A1c 12/02/24 Z13.9 - Encounter for screening, unspecified Medications: Refilled sennosides (Black-Draught Lax-Senna) 8.6 mg PO BID 60 tabs 3RF
[2024-12-02 14:24] VITALS: BP 120/64; PULSE 83; RESP 18; O2SAT 97; BMI 47.1
--- OUTSIDE RECORDS SUMMARY | 2024-12-02 15:22 | XMS_ITS | Referral Summary ---
Author Organization [facility] Address [address] [place] [address] Care Team Providers Care Reception Specialist Name Role Phone Bi Dennis Primary Care Provider [phone] Allergies Active Allergy Reactions Criticality Noted Date [...] Not on file Procedures * Due to [place] state law, this organization might not be sharing negative HIV tests. Procedure Name Priority Date/Time Associated Diagnosis Comments AMB EXTERNAL CT CHEST, OUTSI DE RESULT Routine 01/09/2019 from Last 3 Months or Most Recently Relevant to Health Maintenance Results * Due to [place] state law, this organization might not be sharing negative HIV tests. * CT Chest, Outside Result (01/09/2019) Anatomical Region Laterality Modality Other us In System Do Not Edit Provider-Not AMB EXTERNAL RESULT PROCEDURES Final Result from Last 3 Months or Most Recently Relevant to Health Maintenance Insurance [facility] Care Teams Reception Specialist Relationship Specialty Start Date End Date Bi Dennis [address] [place] [address] dr Lavell Monte, K[place]STIN [id number] PCP - General Internal Medicine 01/05/20
--- OUTSIDE RECORDS SUMMARY | 2024-12-02 15:22 | XMS_ITS | Clinical Summary ---
Author Organization [facility] ity Address [address] [place] [address] Care Team Providers Care Stationary Plant Operators Name Role Phone Bi Dennis MD Primary [...] 2023-2 5 season) 2024 Influenza Vaccine (#1) 2025 HIB Vaccines Aged Out No longer [...] age to complete this topic Care Teams Stationary Plant Operators Relationship Specialty Start Date End Date Bi Dennis MD [address] [place] [address] Dr [address] [place] Monte PCP - General Internal Medicine 12/15/16
--- OUTSIDE RECORDS SUMMARY | 2024-12-02 15:22 | XMS_ITS | Clinical Summary ---
Author Organization [facility] Address [address] [place] [address] Care Team Providers Care Home Care Provider Name Role Phone Bi Dennis MD Primary Care Provider [phone] Immunizations Immunization Administration Dates Next Due COVID-19, mRNA (Moderna [...] season) 2024 04/28/2021, 10/22/2020, 09/24/2020 Influenza (#1) 2025 05/26/2021, 01/2019, 03/06/2018, Additional history exists DTaP/Tdap/Td [...] Patient Date of Phone Billing Address Personal/Family [address] [place] [address] [address] [place] [address] MEDICAID MEDICARE PART B Care Teams Home Care Provider Relationship Specialty Start Date End Date Bi Dennis MD [address] [place] [address] PCP - General Internal Medicine 11/03/19
== END 2024-12-02 15:19 | disposition home or self-care (01) ==
LOC: HO.HMCH 14:04
PROVIDERS: PCP Internal Medicine
DX: M19.011 Primary osteoarthritis, right shoulder (principal); J98.4 Other disorders of lung; G47.33 Obstructive sleep apnea (adult) (pediatric); J45.41 Moderate persistent asthma with (acute) exacerbation; J44.1 Chronic obstructive pulmonary disease with (acute) exacerbation; E78.00 Pure hypercholesterolemia, unspecified; R53.83 Other fatigue; E11.42 Type 2 diabetes mellitus with diabetic polyneuropathy; Z79.4 Long term (current) use of insulin; M43.16 Spondylolisthesis, lumbar region; M96.1 Postlaminectomy syndrome, not elsewhere classified; E66.01 Morbid (severe) obesity due to excess calories; F33.9 Major depressive disorder, recurrent, unspecified; F41.9 Anxiety disorder, unspecified; G47.00 Insomnia, unspecified; K21.9 Gastro-esophageal reflux disease without esophagitis; I10 Essential (primary) hypertension; K59.09 Other constipation; E55.9 Vitamin D deficiency, unspecified

== ENCOUNTER → 2024-12-02 14:03 | Outpatient (BNVA) | payer OTHER, SELFPAY | PROVIDERS: PCP Internal Medicine | DX: M19.011 Primary osteoarthritis, right shoulder (principal); E87.5 Hyperkalemia; K59.00 Constipation, unspecified; J98.4 Other disorders of lung; G47.33 Obstructive sleep apnea (adult) (pediatric); J45.41 Moderate persistent asthma with (acute) exacerbation; J44.1 Chronic obstructive pulmonary disease with (acute) exacerbation; E78.00 Pure hypercholesterolemia, unspecified; E11.42 Type 2 diabetes mellitus with diabetic polyneuropathy; M43.16 Spondylolisthesis, lumbar region; M96.1 Postlaminectomy syndrome, not elsewhere classified; E66.01 Morbid (severe) obesity due to excess calories; F33.9 Major depressive disorder, recurrent, unspecified; F41.9 Anxiety disorder, unspecified; G47.00 Insomnia, unspecified; K21.9 Gastro-esophageal reflux disease without esophagitis; I10 Essential (primary) hypertension; K59.09 Other constipation; E55.9 Vitamin D deficiency, unspecified; Z79.4 Long term (current) use of insulin; Z68.42 Body mass index [BMI] 45.0-49.9, adult | CPT/HCPCS: 96127; 99212 ==

== ENCOUNTER 2024-12-11 16:40 | Outpatient (REF) | payer OTHER, SELFPAY ==
--- NOTE | ~2024-12-11 | CT_ITS ---
EXAMINATION: CT ABDOMEN WITHOUT CONTRAST CLINICAL INFORMATION: Follow up, Multiple lymph nodes are seen around the natanael hepatis, periceliac region; and pancreatic head COMPARISON: 01/30/2024 and 12/09/2019 and September 02, 2013 TECHNIQUE: Contiguous axial thin section helical images of the abdomen were performed without contrast. The data set was reformatted in the coronal and sagittal planes and reviewed on an independent workstation. This CT examination was performed using dose optimization techniques as appropriate, variously including the following: *Automated exposure control *Adjustment of mA and/or kV according to patient size (this includes techniques or standardized protocols for targeted exams where dose is matched to indication/reason for exam; i.e. extremities or head) *Use of iterative reconstruction technique FINDINGS: LUNG BASES: Unremarkable LIVER, GALLBLADDER, BILIARY TREE: There is also margin of the left hepatic lobe versus the right. Unchanged. Gallbladder and biliary ducts are unremarkable. PANCREAS: Again seen is chronic fatty infiltration. SPLEEN: Unremarkable. ADRENAL GLANDS AND KIDNEYS: Adrenal glands are unremarkable. Kidneys demonstrate no hydronephrosis or nephrolithiasis. BOWEL LOOPS: Visualized portions of the GI tract are unremarkable. LYMPH NODES: Measured on axial CT series #3. History 3: Medial natanael hepatis node is 11 mm short axis, 10 mm short axis on the 2020 exam. Image 25: Natanael hepatis/gallbladder fossa node is 1.4 cm short axis, and was 1.5 cm short axis in 2020. Image 26: Anterior to portal vein noted is 13 mm, unchanged from 2020. Other lymph nodes appear stable. VASCULAR: Moderate multifocal calcifications are evident. BONES: Multilevel degenerative changes most advanced at L2-3. There is vacuum phenomena, endplate sclerosis, and osteophytes. Anterior fusion of L5-S1 and a chronic pars interarticularis defect is noted. CT/CT abdomen wo IV con IMPRESSION: Chronic adenopathy in the region of the natanael hepatis and pancreatic head are similar to the prior examination 11 years ago which is most consistent with a benign/hyperplastic etiology. Left hepatic lobe is relatively large compared to the right raising question of underlying cirrhosis. Fleischner guidelines were followed. Electronically signed by: Baron Garces MD 12/11/2024 05:20 PM EDT
--- OUTSIDE RECORDS SUMMARY | 2024-12-11 16:42 | XMS_ITS | Clinical Summary ---
Author Organization [facility] ity Address [address] [place] [address] Care Team Providers Care Clothing Sorter Name Role Phone Bi Dennis MD Primary [...] Vaccine (1 - 2023-2 5 season) 2024 Depression Screening 05/21/2024 Influenza Vaccine (#1) 2025 HIB Vaccines Aged [...] age to complete this topic Care Teams Clothing Sorter Relationship Specialty Start Date End Date Bi Dennis MD [address] [place] [address] Dr [address] KRYSTIN Monte PCP - General Internal Medicine 12/15/16
--- OUTSIDE RECORDS SUMMARY | 2024-12-11 16:42 | XMS_ITS | Encounter Summary ---
Author Organization [facility] Address [address] [facility] [address] [place] [address] Phone Care Team Providers Care Chip Drier Name Role Phone Bi Dennis MD Primary Care Provider [phone]- [phone] Encounter Details Date Type Department Care Team (Late st Contact Info) Description 11/19/2023 Office Communication [facility] [address] [facility] [address] [place] [phone] Liberty Hairston ARNP [address] [address] Social History Tobacco Use Types [...] Visit [facility] [address] [facility] [address] [place] [address] Liberty Hairston ARNP [address] [address] documented as of this encounter Visit Diagnoses Not on filedocumented in this encounter Care Teams Chip Drier Relationship Specialty Start Date End Date Bi Dennis MD [address] [place] [address] PCP - General Internal Medicine 04/11/21 documented as of this encounter
--- OUTSIDE RECORDS SUMMARY | 2024-12-11 16:42 | XMS_ITS | Referral Summary ---
Author Organization [facility] Address [address] [place] [address] Care Team Providers Care Offshore Wind Operations Manager Name Role Phone Bi Dennis Primary Care Provider [phone] Allergies Active Allergy Reactions Criticality Noted Date [...] Not on file Procedures * Due to [place] state law, this organization might not be sharing negative HIV tests. Procedure Name Priority Date/Time Associated Diagnosis Comments AMB EXTERNAL CT CHEST, OUTSI DE RESULT Routine 01/09/2019 from Last 3 Months or Most Recently Relevant to Health Maintenance Results * Due to [place] state law, this organization might not be sharing negative HIV tests. * CT Chest, Outside Result (01/09/2019) Anatomical Region Laterality Modality Other us In System Do Not Edit Provider-Not AMB EXTERNAL RESULT PROCEDURES Final Result from Last 3 Months or Most Recently Relevant to Health Maintenance Insurance [facility] Care Teams Offshore Wind Operations Manager Relationship Specialty Start Date End Date Bi Dennis [address] [place] [address] dr Lavell Monte, [place] [address] PCP - General Internal Medicine 01/05/20
== END 2024-12-11 16:41 | disposition home or self-care (01) ==
LOC: HO.CT 16:40
PROVIDERS: PCP Internal Medicine; Visit Provider Internal Medicine Gastroenterology
DX: R93.5 Abnormal findings on diagnostic imaging of other abdominal regions, including retroperitoneum (principal)
CPT/HCPCS: 74150

== ENCOUNTER → 2024-12-11 16:42 | Outpatient (BNV) | payer OTHER, SELFPAY | PROVIDERS: PCP Internal Medicine; Visit Provider Radiology Diagnostic Radiology | DX: I88.1 Chronic lymphadenitis, except mesenteric (principal) | CPT/HCPCS: 74150 ==

== ENCOUNTER 2025-02-10 14:06 | Outpatient (AMB) | payer OTHER, SELFPAY ==
--- NOTE | 2025-02-10 14:21 | A.OFFVIS_ITS ---
Vital Signs 02/10/25 14:22 Height 5 ft 5 in Weight 292 lb 1.8 oz BMI 48.6 BP 102/62 Blood Pressure Location Lt brachial Position Sitting Pulse 97 Pulse Source Pulse Oximeter Pulse Oximetry (%) 94 Oxygen Delivery Method Room Air Intake Visit Reasons: matilda Intake Note: pt is here for follow up of MATILDA and has fluid back going on, seeing cardiology on Sunday, struggling with cpap usage, needs [facility] with proper fitting and to increase usage. Industrial Equipment Mechanic Required: No Allergies adhesive tape Allergy (Intermediate, Verified 02/10/25 15:06) Rash empagliflozin (From JARDIANCE) Allergy (Intermediate, Verified 02/10/25 15:06) Rash sitagliptin (From JANUVIA) Adverse Reaction (Severe, Verified 02/10/25 15:06) Rash,nausea, hypoglycemia metformin (METFORMIN) Adverse Reaction (Intermediate, Verified 02/10/25 15:06) Rash, GI upset jardiance Allergy (Intermediate, Uncoded 02/10/25 15:06) Rash metformin Allergy (Intermediate, Uncoded 02/10/25 15:06) Rash Medication List - Last Reconciled 02/10/25 by Camila Olmos MD [ABSORBANT HEAVY PADS As directed] albuterol sulfate 90 mcg/actuation 2 puffs PO Q4-6H PRN atorvastatin 40 mg PO BEDTIME 90 days budesonide-formoterol 160-4.5 mcg/actuation (Symbicort) 2 puffs inhalation BID cholecalciferol (vitamin D3) 50 mcg PO DAILY 90 days clotrimazole-betamethasone 1-0.05 % 1 appl topical BID [DISPOSABLE WIPES As directed] fluoxetine 10 mg PO DAILY fluticasone propionate 50 mcg/actuation 1 spray intranasal DAILY furosemide (Lasix) 100 mg PO DAILY glipizide ER 10 mg PO BID insulin regular hum U-500 conc 200 units in AM, 150 units at lunchtime and 150 units at dinnertime subcutaneously; lisinopril 5 mg PO DAILY 90 days lorazepam 0.5 mg PO TID PRN 30 days lubiprostone 16 mcg (2 x 8 mcg) PO BID 60 days meloxicam 15 mg PO DAILY PRN 30 days metoclopramide HCl 10 mg PO TID PRN omeprazole 20 mg PO BID oxycodone 5 mg PO Q6-8H PRN 7 days pramipexole 1 mg PO TID 30 days primidone 50 mg PO BEDTIME 30 days sennosides (Black-Draught Lax-Senna) 8.6 mg PO BID spironolactone 100 mg PO BID 30 days tirzepatide (Mounjaro) 10 mg subcut QWEEK tramadol Take 1 to 2 tablets orally twice a day as needed for pain PRN; 25 days Do you need a note to return to daycare/school/sports/work: No HPI HPI matilda: Details: Maria C 54 years old female, with morbid obesity and obstructive sleep apnea, is here today of for her 6 months follow-up. Usually she is quite compliant in using the CPAP. Lately she has difficulty in using the CPAP because of problem with the current mask. She is using F30 mask at present, She say is she does not like the tube connection on the top of the head. She likes to have the tube connection in front . She was recently hospitalized at [facility] because of fluid retention . She has been treated by cardiology service as well as by the renal Service. She was discharged on rather large dose of furosemide ( 60 mg in a.m. and 40 mg in p.m. ) and also spironolactone 100 mg daily was added. She is losing fluid but slowly. Complains of dry mouth especially in the morning. [facility] Medical History Vitamin D deficiency Degenerative joint disease of right shoulder Restrictive lung disease MATILDA (obstructive sleep apnea) Asthma COPD (chronic obstructive pulmonary disease) Blood dyscrasia Superficial bruising of lower leg Pain and swelling of right lower extremity Morbid obesity with BMI of 50.0-59.9, adult Pure hypercholesterolemia Fatigue Diabetes mellitus Pedal edema Nausea and vomiting Abdominal pain Atypical chest pain On beta kelsey at home Dyspnea on effort Asthma Sleep apnea with use of continuous positive airway pressure (CPAP) HTN (hypertension) Liver cirrhosis Pars defect of lumbar spine Spondylolisthesis, lumbar region Postlaminectomy syndrome, lumbar Spondylosis of lumbar spine Rectal bleeding Fatty pancreas Chronic constipation Cirrhosis of liver without ascites Body mass index [BMI] 50.0-59.9, adult Morbid (severe) obesity due to excess calories Depression Anxiety Insomnia Obstructive sleep apnea Periodic limb movement disorder Neuropathic pain of both feet GERD (gastroesophageal reflux disease) Gastroparesis Lumbar degenerative disc disease Benign essential hypertension Dyslipidemia Diastolic dysfunction Type 2 diabetes mellitus with diabetic autonomic (poly)neuropathy Surgical History H/O colonoscopy History of surgery History of esophagogastroduodenoscopy (EGD) H/O cardiac catheterization (~12/14/17) H/O section History of laryngoscopy (~02/10/19) History of ventral hernia repair (~2008) History of appendectomy History of lumbar discectomy Family History Father Diabetes mellitus Hypertension Mother Diabetes mellitus Hypertension Uterine cancer History of heart attack Social History Housing: Apartment Are you a primary specialist wound care to a significant other at home: No Do you presently have visiting nurse or other home services: Yes (Home Health Aide, VNA) Alcohol intake: never Patient Tobacco Use Status: Former Tobacco user Tobacco use type: Cigarette Years Smoked: 10 e-Cigarette/Vaping Use: Never Used Second Hand Smoke Exposure: No service: No Current occupational status: disabled Cognitive needs: No Hearing needs: No Vision needs: Yes Review of Systems Const All systems reviewed & are unremarkable except as noted in HPI and below Reports snoring Eyes Reports no additional complaints ENT Reports nasal congestion (MILD OFF AND ON) Card Denies chest pain, Denies irregular heart rhythm and Denies leg edema Resp Reports cough, Reports snoring and Reports wheezing (MILD INTERMITTENT WITH CONGESTED FEELING) GI Reports heartburn (CONTROLLED WITH OMEPRAZOLE) Reports no additional complaints Musc Reports back pain Skin/Breast Reports system reviewed and no additional complaints, except as documented Neuro Reports restless legs Psych Reports depression (CONTROLLED WITH MED) Aller/Immun Reports wheezing (MILD INTERMITTENT WITH CONGESTED FEELING) Physical Exam Vital Signs: Last Vital Signs Pulse 97 02/10/25 14:22 BP 102/62 02/10/25 14:22 Pulse Ox 94 02/10/25 14:22 Oxygen Delivery Method Room Air 02/10/25 14:22 BMI result Body Mass Index 48.6 Const General: comfortable, no acute distress, alert and awake Orientation/consciousness: patient oriented x3 HEENT Head: Yes normal to inspection General nose exam: No nasal polyps present and No nasal discharge present Face and sinus: Yes sinuses nontender Mouth: oropharynx normal Throat: No posterior oropharynx normal (NARROW AND CROWDED MALLAMPATI CLASS 4) Eyes General: appearance normal, both eyes and all related structures Neck Neck: Yes normal visual inspection, Yes no lymphadenopathy, Yes trachea midline and Yes no JVD Thyroid: Thyroid normal Chest Chest palpation & inspection: normal inspection of the chest, normal palpation of entire chest wall and no tenderness Resp Other: PERCUSSION NOTE IS NOT PERCEPTIBLE BECAUSE OF THICK CHEST WALL. BREATH SOUNDS ARE DISTANT WITH PROLONGED EXPIRATORY PHASE. SHE DOES NOT HAVE ANY WHEEZES OR CREPITATIONS, BUT BREATH SOUNDS ARE DIMINISHED OVER THE BASILAR AREAS. Cardio Palpation: normal PMI Rate: regular rate Rhythm: regular rhythm Heart sounds: no gallops and no murmurs GI Palpation (GI): Soft to palpation, nontender, No hepatosplenomegaly present and no masses Auscultation: normal bowel sounds Back/Spine/Pelvis Thoracic/Lumbar Spine: thoracic and lumbar spine normal to inspection and thoraco-lumbar ROM limited Skin General skin exam: no rashes or lesions noted Neuro General: patient oriented x3 and no focal motor deficits Cranial nerves: Yes CN's II-XII intact bilaterally Extrem General: Yes normal to inspection, Yes no calf tenderness and Yes edema (1+ pitting edema of the lower 1/3 of the legs and around the ankles) Psych Appearance: grossly normal and well kempt Speech and movement: Normal speech and movement present Results Reviewed Results Reviewed: CPAP compliance for the last 30 nights shows that she used only for 12 out of 30 nights, 40% Average use it per night 3 hours 56 minutes. There is only minimal. Air leak Residual AHI 1.3 on the nights when she uses the CPAP Assessment & Plan Assessment & Plan (1) Obstructive sleep apnea: Comment: This patient is known to have chronic obstructive sleep apnea. Previously has been compliant to use CPAP every night . Lately she is not using the CPAP regularly, complains of issue with the mask. Code(s): G47.33 - Obstructive sleep apnea (adult) (pediatric) Category: Medical Plan: We have ordered a new mask for her . ( F-40 ) and she is urge to use her CPAP regularly at least 6 hours every night. (2) COPD (chronic obstructive pulmonary disease): Comment: PATIENT HAS LONG-STANDING HISTORY OF BRONCHIAL ASTHMA. CLINICALLY I THINK SHE HAS DEVELOPED OBSTRUCTIVE BRONCHIAL ASTHMA LEADING TO COPD. PULMONARY FUNCTION TEST SHOWED RESTRICTIVE LUNG DISORDER. WHICH IS RELATED TO HER GROSS OBESITY Code(s): J44.9 - Chronic obstructive pulmonary disease, unspecified Category: Medical Qualifiers: COPD type: COPD with acute exacerbation Qualified Code(s): J44.1 - Chronic obstructive pulmonary disease with (acute) exacerbation Plan: Advised to continue using Symbicort 160-4.52 puffs b.i.d., use albuterol HFA 2 puffs Q 6 hours p.r.n. (3) Restrictive lung disease: Comment: Due to her morbid obesity she has restrictive lung disease. Code(s): J98.4 - Other disorders of lung Category: Medical Plan: She is urge to try to lose some weight. Continue doing deep breathing exercises at least 3 times a day (4) Morbid obesity with BMI of 50.0-59.9, adult: Comment: Patient is grossly over weight and she is trying to reduce . Currently she has gained weight due to fluid retention. being followed by Endocrinology service, she is on Mounjaro therapy . He is trying to watch her diet Code(s): E66.01 - Morbid (severe) obesity due to excess calories; Z68.43 - Body mass index [BMI] 50.0-59.9, adult Category: Medical Plan: Advised to continue , dietary instructions, as much as possible. Coding Level of Care Code Est Pt Level 3 (25566) Diagnoses Obstructive sleep apnea G47.33 Chronic obstructive pulmonary disease with acute exacerbation J44.1 COPD type: COPD with acute exacerbation Restrictive lung disease J98.4 Morbid obesity with BMI of 50.0-59.9, adult E66.01; Z68.43
[2025-02-10 14:22] VITALS: BP 102/62; PULSE 97; O2SAT 94; BMI 48.6
--- OUTSIDE RECORDS SUMMARY | 2025-02-10 17:25 | XMS_ITS | Clinical Summary ---
Author Organization [facility] Address [address] [place] [address] Care Team Providers Care Studio Operations Engineer In Charge Name Role Phone Bi Dennis MD Primary Care Provider [phone] Immunizations Immunization Administration Dates Next Due COVID-19, [...] 19+ 3-dose series) 1988 Mammogram/Breast Imaging 2009 Pneumococcal 50+ years (1 of 1 - PCV) 2019 Zoster (Shingrix) (1 of 2) 2019 COVID-19 Vaccine ( season) 2025 04/28/2021, 10/22/2020, 09/24/2020 Influenza (#1) 2025 05/26/2021, 1001/2019, 03/06/2018, Additional history exists DTaP/Tdap/Td (2 - Td or Tdap) 03/03/2026 03/03/2016 HPV Vaccine (No Doses Required) Completed Hep A Aged Out No longer eligi ble based on patient's age to complete this topic Hib Aged Out No longer eligi ble based on patient's age to complete this topic Meningococcal ACWY Aged Out No longer eligible based on patient's age to complete this topic Insurance * Guarantor: ERAN GUEVARA Account Type Relation to Patient Date of Phone Billing Address Personal/Family [address] [place] [address] [address] [place] [address] MEDICAID MEDICARE PART B Care Teams Studio Operations Engineer In Charge Relationship Specialty Start Date End Date Bi Dennis MD [address] [place], [place] [id number] PCP - General Internal Medicine 11/03/19
--- OUTSIDE RECORDS SUMMARY | 2025-02-10 17:25 | XMS_ITS | Encounter Summary ---
Author Organization [facility] Address [address] [address] Phone Care Team Providers Care Shower Enclosure Installer Name Role Phone Bi Dennis MD Primary Care Provider [phone] Encounter Details Date Type Department Care Team ([facility] Contact Info) Description 04/23/2024 Office Communication [facility] [address] [address] Liberty Hairston ARNP [address] [place] [address] Social History Tobacco Use Types Packs/Day [...] Department Care Team (Late Contact Info) Description 05/04/2025 2:45 PM EST Office Visit [facility] [address] [address] Juan Michelle MD [address] [address] documented as of this encounter Visit Diagnoses Not on filedocumented in this encounter Care Teams Shower Enclosure Installer Relationship Specialty Start Date End Date Bi Dennis MD [address] [facility] [place] [address] PCP - General Internal Medicine 04/11/21 documented as of this encounter
--- OUTSIDE RECORDS SUMMARY | 2025-02-10 17:25 | XMS_ITS | Clinical Summary ---
Author Organization [facility] ity Address [address] [place] [address] Care Team Providers Care Line Crew Supervisor Name Role Phone Bi Dennis MD [...] 2019 Zoster Vaccines (1 of 2) 2019 Depression Screening 05/21/2024 COVID-19 Vaccine (1 - 2023-2 5 season) 2025 Influenza Vaccine (#1) 2025 RSV Immunization Adult Patie nts (1 - 1-dose 75+ series) 2044 HIB Vaccines Aged Out No longer eligi [...] age to complete this topic Care Teams Line Crew Supervisor Relationship Specialty Start Date End Date Bi Dennis MD [address] [place] [address] [address] [place], [place] PCP - General Internal Medicine 12/15/16
--- OUTSIDE RECORDS SUMMARY | 2025-02-10 17:25 | XMS_ITS | Encounter Summary ---
Author Organization [facility] Address [address] [facility] [address] [place] [address] Phone Care Team Providers Care Fork Lift Technician Name Role Phone Bi Dennis MD Primary Care Provider [phone] Encounter Details Date Type Department Care Team (Late st Contact Info) Description 11/19/2023 Office Communication [facility] [address] [facility] [address] [place] [phone] Liberty Hairston ARNP [address] [address] Social History Tobacco Use Types [...] Care Team (Late st Contact Info) Description 05/04/2025 2:45 PM EST Office Visit [facility] [address] [facility] [address] [place] [address] Juan Michelle MD [address] [facility] [address] [place] [address] documented as of this encounter Visit Diagnoses Not on filedocumented in this encounter Care Teams Fork Lift Technician Relationship Specialty Start Date End Date Bi Dennis MD [address] [facility] [facility] [address] [place] [address] PCP - General Internal Medicine 04/11/21 documented as of this encounter
--- OUTSIDE RECORDS SUMMARY | 2025-02-10 17:25 | XMS_ITS | Clinical Summary ---
Author Organization [facility] Address [address] [place] [address] Care Team Providers Care Umbrella Frame Maker Name Role Phone Bi Dennis Primary Care Provider [phone] Allergies Active Allergy Reactions Criticality Noted Date [...] CT Lung Cancer Screening (Baseline) 01/10/2020 01/09/2019 Alcohol/Substance Use Screening 05/21/2024 Depression Screening and Follow-Up 05/21/2024 Social Drivers of Health Nicole ual Screening 05/21/2024 COVID-19 Vaccine (3 - 2024-2 6 season) 2025 10/22/2020, 09/24/2020 Influenza Vaccine (#1) 2025 9, 03/06/2018, 03/27/2017, Additional history exists DTaP,Tdap,and Td Vaccines (2 - Td or Tdap) 03/03/2026 03/03/2016 RSV Vaccine (60+ years old a nd patients) (1 - 1-dose 75+ series) 2044 Procedures * Due to [place] state law, this organization might not be sharing negative HIV tests. Procedure Name Priority Date/Time Associated Diagnosis Comments AMB EXTERNAL CT CHEST, OUTSI DE RESULT Routine 01/09/2019 from Last 3 Months or Most Recently Relevant to Health Maintenance Results * Due to [place] law, this organization might not be sharing negative HIV tests. * CT Chest, Outside Result (01/09/2019) Anatomical Region Laterality Modality Other us In System Do Not Edit Provider-Not AMB EXTERNAL RESULT PROCEDURES Final Result from Last 3 Months or Most Recently Relevant to Health Maintenance Insurance [facility] Care Teams Umbrella Frame Maker Relationship Specialty Start Date End Date Bi Dennis [address] [place] [address] dr Lavell Monte, [place] [address] PCP - General Internal Medicine 01/05/20
--- OUTSIDE RECORDS SUMMARY | 2025-02-10 17:25 | XMS_ITS | Clinical Summary ---
Author Organization [facility] Address [address] 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 Powertrain Design Engineer Name Role Phone Bi Dennis MD Primary Care Provider [phone] Allergies Active Allergy Reactions Criticality Noted Date Comments Empagliflozin Hives,Rash Low 01/12/2020 Metformin Rash Low 01/12/2020 Sitagliptin Hives,Rash Low 01/19/2020 Medications atorvastatin (LIPITOR) 40 MG tablet 08/27/19 21 Active Symbicort 80-4.5 MCG/ACT inhaler 06/15/19 21 Active HumuLIN R U-500 KWIKPEN 500 UNIT/ML CONCENTRATED injection 08/27/19 21 Active lisinopril (PRINIVIL,ZESTRI L) 5 MG tablet 08/27/19 21 Active LORazepam (ATIVAN) 0.5 MG tablet 08/13/19 21 Active Amitiza 8 MCG capsule 08/27/19 21 Active meloxicam (MOBIC) 15 MG tablet 08/27/19 21 Active metoclopramide (REGLAN) 10 MG tablet 08/28/19 21 Active omeprazole (PriLOSEC) [address] capsule 08/27/19 21 Active pramipexole (MIRAPEX) 1 MG tablet 08/27/19 21 Active traMADol (ULTRAM) 50 MG tablet 08/27/19 21 Active fluticasone (FLONASE) 50 MCG/ACT nasal spray 01/14/20 21 Active FreeStyle Precision Gerard Test test strip 03/11/20 21 Active oxyCODONE (ROXICODONE) 5 MG immediate release tablet 04/08/20 21 Active primidone (MYSOLINE) 50 MG tablet 03/21/20 21 Active glipiZIDE (GLUCOTROL) 10 MG tablet Take 10 mg by mouth in the morning and 10 mg in the evening. Take before meals. Active spironolactone (ALDACTONE) 100 MG tablet Take 1 tablet (100 mg total) by mouth in the morning and 1 tablet (100 mg total) in the evening. 180 tablet 3 11/23/19 23 Active FLUoxetine (PROzac) 10 MG capsule Take 10 mg by mouth 1 (one) time each day Active Mounjaro 5 MG/0.5ML solution auto-injector Inject 5 mg under the skin 03/27/20 24 Active cholecalciferol (VITAMIN D-3) 50 MCG (1999) tabletIndication s:Stage 3b chronic kidney disease (HCC),Vitamin D deficiency, not otherwise specified TAKE ONE TABLET BY MOUTH EVERY MORNING ^1R1 30 tablet 2 11/20/19 25 Active Continuous Glucose Transmitter (Dexcom G6 Transmitter) miscIndications: Stage 3a chronic kidney disease (HCC) 09/25/19 25 Active furosemide (LASIX) 20 MG tabletIndication s:Hypertension Take 5 tablets (100 mg total) by mouth 1 (one) time each day Take 3 tablets in the AM, take 2 tablets in the afternoon 450 tablet 01/27/20 25 025 Active furosemide (LASIX) 20 MG tabletIndication s:Type 2 diabetes mellitus with diabetic chronic kidney disease (HCC),Hypertensi on TAKE THREE TABLETS BY MOUTH ONCE DAILY 90 tablet 3 11/16/19 22 025 Discontinued Active Problems Problem Noted Date Diagnosed Date Bilateral localized swelling of lower legs 01/26 Stage 3a chronic kidney disease 11/27/2024 Hyperkalemia 11/27/2024 Vitamin D deficiency, not otherwise specified Hypo-osmolality and hyponatremia 11/19/2023 Mixed urinary incontinence [...] apnea syndrome 01/19/2020 Shortness of breath 01/12/2020 Encounters Date Type Department Care Team Description 01/26/2025 1:15 PM EDT Office Visit [facility] [address] [address] Liberty Hairston ARNP Stage 3a chronic kidney disease (HCC) (Primary Dx); Bilateral localized swelling of lower legs; Hypertension; Hyperkalemia; Hypo-osmolality and hyponatremia; Vitamin D deficiency, not otherwise specified 12/02/2024 Office Communication [facility] [address] [address] Liberty Hairston ARNP 12/02/2024 Orders Only [facility] [address] [address] Liberty Hairston ARNP Hyperkalemia (Primary Dx); Stage 3a chronic kidney disease (HCC); Hypertension 11/27/2024 1:45 PM EDT Office Visit [facility] [address] [address] Liberty Hairston ARNP Stage 3a chronic kidney disease (HCC) (Primary Dx); Hypertension; Frequency of micturition; Hyperkalemia; Hypo-osmolality and hyponatremia; Vitamin D deficiency, not otherwise specified 11/19/2024 Refill [facility] [address] [address] Liberty Hairston ARNP Stage 3b chronic kidney disease (HCC); Vitamin D deficiency, not otherwise specified from Last 3 Months Immunizations Immunization Administration Dates Next Due Influenza, [...] Sign Reading Time Taken Comments Blood Pressure 120/70 01/26/2025 1:12 PM EDT Pulse 83 01/26/2025 1:12 PM EDT Temperature - - Respiratory Rate - - Oxygen Saturation 94% 11/27/2024 1:48 PM EDT Inhaled Oxygen Concentration - - Weight 133 kg (293 lb) 01/26/2025 1:12 PM EDT Height 160 cm (5' 3 ) 01/26/2025 1:12 PM EDT Body Mass Index 51.9 01/26/2025 1:12 PM EDT Plan of Treatment Upcoming Encounters Date Type Department Care Team (Late st Contact Info) Description 05/04/2025 2:45 PM EST Office Visit [facility] [address] [phone] Juan Michelle MD [address] [phone] Health Maintenance Due Date Last Done Comments [...] A1C 08/04/2021 021, 04/11/2021, 10/24/2019 Influenza Vaccine (#1) 2025 2, 02/26/2019, 03/06/2018, Additional history exists Procedures Procedure Name Priority Date/Time Associated Diagnosis Comments EXT RESULT ENTRY Routine 01/26/2025 EXT RESULT ENTRY Routine 01/23/2025 BASIC METABOLIC PANEL Routine 12/09/2024 1:11 PM EDT Hyperkalemia Stage 3a chronic kidney disease (HCC) Hypertension PROTEIN / CREATININE RATIO, URINE Routine 11/27/2024 [...] kidney disease (HCC) Hypertension Frequency of micturition RESULT Routine 11/27/2024 2:49 PM EDT MICROSCOPIC EXAMINATION - DO NOT USE Routine 11/27/2024 2:49 PM EDT VITAMIN D 25 HYDROXY Routine 11/27/2024 1:25 PM EDT Vitamin D deficiency, not otherwise specified MAGNESIUM Routine 11/27/2024 1:25 PM EDT Stage 3b chronic kidney disease (HCC) Hypertension Hypo-osmolality and hyponatremia Hyperkalemia CBC Routine 11/27/2024 1:25 PM EDT Stage 3b chronic kidney disease (HCC) Hypertension Hypo-osmolality and hyponatremia Hyperkalemia RENAL FUNCTION PANEL Routine 11/27/2024 1:25 PM EDT Stage 3b chronic kidney disease (HCC) Hypertension Hypo-osmolality and hyponatremia Hyperkalemia PTH, INTACT Routine 11/27/2024 1:25 PM EDT Stage 3b chronic kidney disease (HCC) Hypertension Hypo-osmolality and hyponatremia Hyperkalemia HEMOGLOBIN A1C Routine 05/06/2021 9:46 AM EST Type 2 diabetes mellitus with diabetic chronic kidney disease (HCC) Hypertension from Last 3 Months or Most Recently Relevant to Health Maintenance Results * EXT RESULT ENTRY (01/26/2025) Only the most recent of2 resultswithin the time period is included. Hemoglobin 12.5 12.0 - 16.0 Hematocrit 39.1 36.0 - 46.0 Platelets 252 150 - 399 10*3/UL Sodium 139 137 - 147 Potassium 4.7 3.4 - 5.5 Carbon Dioxide 27 mmol/L BUN 19 4 - 21 mg/dL Creatinine 1.06 0.50 - 1.10 mg/dL Calcium 10.4 8.7 - 10.7 mg/dL eGFR Non-Afr Canadian 62 01/26/2025 us Historical Provider LAB BLOOD ORDERABLES Araceli l Result * (ABNORMAL) Basic metabolic panel (12/09/2024 1:11 PM EDT) Glucose 382(H) 70 - 99 mg/dL [facility] BUN 20 6 - 24 mg/dL [facility] Creatinine 1.00 0.57 - 1.00 mg/dL [facility] [place] eGFR CKD-EPI CR 2020 67 >59 mL/min/1.7 3 [facility] BUN/Creatinine Ratio 20 9 - 23 [facility] [facility] Sodium 132(L) 134 - 144 mmol/L [facility] Potassium 5.2 3.5 - 5.2 mmol/L [facility] [facility] Chloride 98 96 - 106 mmol/L [facility] Bicarbonate (CO2) 20 20 - 29 mmol/L [facility] [facility] Calcium 9.4 8.7 - 10.2 mg/dL [facility] [place] Blood Venous blood / Unknown 12/09/2024 1:11 PM EDT 12/09/2024 [facility] LAB BLOOD ORDERABLES Final Result [facility] [place] [address] [place] [address] * Result (11/27/2024 2:49 PM EDT) Result Comment [facility] Comment: Mixed urogenital claudia 10,000-25,000 colony forming units per mL 11/27/2024 2:49 PM EDT 11/27/2024 [facility] - GENERAL ORDERABLES Final Result [facility] [place] [address], [address] [place] [address] * Microscopic Examination (11/27/2024 2:49 PM EDT) WBC, Urine 0-5 0 - 5 /hpf [facility] [place] RBC, Urine 0-2 0 - 2 /hpf [facility] [place] Squamous Epithelial, Urine 0-10 0 - 10 /hpf [facility] [place] Casts None seen None seen /lpf [facility] [place] Bacteria, Urine Few None seen/Few [facility] [place] 11/27/2024 2:49 PM EDT 11/27/2024 Liberty Hairston [facility] LAB MICROBIOLOGY - GENERAL ORDERABLES Final Result [facility] [place] [address] [place] [address] * Urine Protein / creatinine ratio (11/27/2024 2:49 PM EDT) Creatinine, Ur 87.7 Not Estab. mg/dL [facility] [place] Protein, Ur 8.4 Not Estab. mg/dL [facility] [place] Urine Protein/Creatin ine Ratio 96 0 - 200 mg/g creat [facility] [place] Urine Urine specimen obtained by clean catch procedure / Unknown 11/27/2024 2:49 PM EDT 11/27/2024 [facility] LAB URINE ORDERABLES Final Result [facility] [place] [address] [place] [address] * Urine Albumin / Creatinine Ratio (11/27/2024 2:49 PM EDT) Albumin, Urine 6.9 Not Estab. ug/mL [facility] [place] Albumin/Creatin ine Ratio 8 0 - 29 mg/g creat [facility] [place] Comment: Normal: 0 - 29 Moderately increased: 30 - 300 Severely increased: >300 Urine Urine specimen obtained by clean catch procedure / Unknown 11/27/2024 2:49 PM EDT 11/27/2024 Liberty SOLIMAN LAB URINE ORDERABLES Final Result [facility] [place] [address] [place] [address] * (ABNORMAL) Urinalysis with microscopic (11/27/2024 2:49 PM EDT) Specific [place], Urine >=1.030(A) 1.005 - 1.030 [facility] [place] pH Urine 5.5 5.0 - 7.5 [facility] [place] Color, Urine Yellow Yellow [facility] [place] [phone] Appearance Urine Clear Clear [facility] [place] WBC Esterase Urine Negative Negative [facility] [place] Protein, Ur Trace Negative/Tra ce [facility] [place] Glucose, Ur 3+(A) Negative [facility] [place] Ketones, Urine Negative Negative [facility] [place] Blood Urine Negative Negative [facility] [place] Bilirubin Urine Negative Negative [facility] [place] Urobilinogen Urine 0.2 0.2 - 1.0 mg/dL [facility] [place] Nitrite, Urine Negative Negative [facility] [place] Microscopic Examination Comment [facility] [place] Comment:Microscopic follows if indicated. Other Microsc. Observations See below: [facility] [place] Comment:Microscopic was shweta cated and was performed. Urine Urine specimen obtained by clean catch procedure / Unknown 11/27/2024 2:49 PM EDT 11/27/2024 [email or web address] LAB URINE ORDERABLES Final Result [facility] [address] [place] [address] * Urine culture (11/27/2024 2:49 PM EDT) Culture Result, Urine Final report [email or web address] Urine Urine specimen obtained by clean catch procedure / Unknown 11/27/2024 2:49 PM EDT 11/27/2024 Comment: [employer] [facility] LAB URINE ORDERABLES Final Result Performing Organization Address City/[facility]/ZIP Co de Phone Number Base79 [place] [address], [address] [place] [address] * Vitamin D 25 hydroxy (11/27/2024 1:25 PM EDT) Vitamin D, 25-OH, Total 33.3 30.0 - 100.0 ng/mL [facility] Comment: Vitamin D deficiency has been defined by the [place] of Medicine and an Endocrine Society practice guideline as a level of serum 25-OH vitamin D less than 20 ng/mL (1,2). The Endocrine Society went on to further define vitamin D insufficiency as a level between 21 and 29 ng/mL (2). 1. IOM ([place] of Medicine). 2010. Dietary reference intakes for calcium and D. [place]: The National Academies Press. 2. Janae KIM, Carol WHITE, Igor HOOPER, et al. Evaluation, treatment, and prevention of vitamin D deficiency: an Endocrine Society clinical practice guideline. JCEM. 2010; 96(7):1911-30. Blood specimen (specimen) Venous blood / Unknown 11/27/2024 1:25 PM EDT 11/27/2024 [employer] [facility] LAB BLOOD ORDERABLES Final Result [facility] [place] [address] [place] [address] * CBC (11/27/2024 1:25 PM EDT) WBC 8.8 3.4 - 10.8 x10E3/uL [facility] [place] RBC 4.63 3.77 - 5.28 x10E6/uL [facility] [place] Hemoglobin 13.4 11.1 - 15.9 g/dL [facility] [place] Hematocrit 42.5 34.0 - 46.6 % [facility] [place] MCV 92 79 - 97 fL [facility] MCH 28.9 26.6 - 33.0 pg [facility] [place] MCHC 31.5 31.5 - 35.7 g/dL [facility] [place] RDW 13.1 11.7 - 15.4 % [facility] [place] [facility] Platelets 230 150 - 450 x10E3/uL [facility] [place] Blood specimen (specimen) Venous blood / Unknown 11/27/2024 1:25 PM EDT 11/27/2024 Liberty Hairston [facility] LAB BLOOD ORDERABLES Final Result [facility] [place] [address] [place] [address] * PTH, intact (11/27/2024 1:25 PM EDT) PTH 19 15 - 65 pg/mL [facility] [place] Blood specimen (specimen) Venous blood / Unknown 11/27/2024 1:25 PM EDT 11/27/2024 [facility] LAB BLOOD ORDERABLES Final Result [facility] [place] [address] [place] [address] * Magnesium (11/27/2024 1:25 PM EDT) Pathologist [facility] Magnesium 1.7 1.6 - 2.3 mg/dL [facility] [place] Blood specimen (specimen) Venous blood / Unknown 11/27/2024 1:25 PM EDT 11/27/2024 Liberty [facility] LAB BLOOD ORDERABLES Final Result Performing Organization Address City/[facility]/ZIP Co de Phone Number [facility] [place] [address] [place] [address] * (ABNORMAL) Renal function panel (11/27/2024 1:25 PM EDT) Pathologist [facility] Glucose 445(H) 70 - 99 mg/dL [facility] [place] BUN 26(H) 6 - 24 mg/dL [facility] [place] Creatinine 1.13(H) 0.57 - 1.00 mg/dL [facility] [place] eGFR CKD-EPI CR 2020 57(L) >59 mL/min/1.7 3 [facility] [place] BUN/Creatinine Ratio 23 9 - 23 [facility] [place] Sodium 132(L) 134 - 144 mmol/L [facility] [place] Potassium 5.4(H) 3.5 - 5.2 mmol/L [facility] [place] Chloride 98 96 - 106 mmol/L [facility] [place] Bicarbonate (CO2) 18(L) 20 - 29 mmol/L [facility] [place] Calcium 9.8 8.7 - 10.2 mg/dL [facility] [place] Albumin 4.0 3.8 - 4.9 g/dL [facility] Phosphorus 3.7 3.0 - 4.3 mg/dL [facility] Blood specimen (specimen) Venous blood / Unknown 11/27/2024 1:25 PM EDT 11/27/2024 Liberty Yovanny SOLIMAN LAB BLOOD ORDERABLES Final Result [facility] [address] [place] [address] * (ABNORMAL) Hemoglobin A1c (05/06/2021 9:46 AM EST) Hemoglobin A1C 11.9(H) (4.0-5.6) % [facility] Comment: MONITORING: In known diabetic patients, hemoglobin A1c targets should be discussed with health care provider. DIAGNOSTIC USE: The [place] Diabetes Association (ADA) and the World Health [...] Supplement 1 Testing performed or reported by [facility], a Service of [facility], [address] [place] [address] Witner Cruz MD, Scientific Informatics Analyst [facility]# [id number] Blood specimen (specimen) Venous blood / Unknown 05/06/2021 9:46 AM EST 05/06/2021 9:48 AM EST Linden Munoz MD LAB BLOOD ORDERABLES Final Re sult [facility] from Last 3 Months or Most Recently Relevant to Health Maintenance Insurance [facility] ([id number]) [facility] MCR ([id number]) Care Teams Powertrain Design Engineer Relationship Specialty Start Date End Date Bi Dennis MD [address] [place] [address] PCP - General Internal Medicine 04/11/21
== END 2025-02-10 15:02 | disposition home or self-care (01) ==
LOC: HO.HPS 14:06
PROVIDERS: PCP Internal Medicine; Visit Provider Internal Medicine
DX: G47.33 Obstructive sleep apnea (adult) (pediatric) (principal); J44.1 Chronic obstructive pulmonary disease with (acute) exacerbation; J98.4 Other disorders of lung; E66.01 Morbid (severe) obesity due to excess calories; Z68.43 Body mass index [BMI] 50.0-59.9, adult
CPT/HCPCS: 99213

== ENCOUNTER → 2025-02-10 14:06 | Outpatient (BNVA) | payer OTHER, SELFPAY | PROVIDERS: PCP Internal Medicine; Visit Provider Internal Medicine | DX: G47.33 Obstructive sleep apnea (adult) (pediatric) (principal); J44.1 Chronic obstructive pulmonary disease with (acute) exacerbation; J98.4 Other disorders of lung; E66.01 Morbid (severe) obesity due to excess calories; Z68.42 Body mass index [BMI] 45.0-49.9, adult | CPT/HCPCS: 99212 ==

== ENCOUNTER 2025-02-11 13:53 | Outpatient (AMB) | payer OTHER, SELFPAY ==
[2025-02-11 13:59] VITALS: BP 120/78; PULSE 92; RESP 18; TEMP 36.2; O2SAT 95; BMI 47.8
--- NOTE | 2025-02-11 13:59 | A.OFFPC_ITS ---
Vital Signs 02/11/25 13:59 Height 5 ft 5 in Weight 287 lb 2 oz BMI 47.8 BP 120/78 Blood Pressure Location Rt brachial Position Sitting Respiration 18 Pulse 92 Pulse Source Pulse Oximeter Temp 97.1 F Temp Source Temporal Artery Scan Pulse Oximetry (%) 95 Oxygen Delivery Method Room Air Intake Visit Reasons: bilateral leg swelling Rotary Soil Stabilizer Required: No Accompanied by: Self / Same As Patient Allergies adhesive tape Allergy (Intermediate, Verified 02/11/25 14:01) Rash empagliflozin (From JARDIANCE) Allergy (Intermediate, Verified 02/11/25 14:01) Rash sitagliptin (From JANUVIA) Adverse Reaction (Severe, Verified 02/11/25 14:01) Rash,nausea, hypoglycemia metformin (METFORMIN) Adverse Reaction (Intermediate, Verified 02/11/25 14:01) Rash, GI upset jardiance Allergy (Intermediate, Uncoded 02/10/25 15:06) Rash metformin Allergy (Intermediate, Uncoded 02/10/25 15:06) Rash Tobacco use date assessed: 02/11/25 Dental Screening Dental Screen Date: 02/11/25 Did you have a dental visit in the last 12 months?: No Did you have a dental problem in the last 6 months where you did not have access to dental care?: No Was dental information given to patient?: No HPI HPI Comments History of Present Illness Details The patient is a 54-year-old female presenting with concerns regarding peripheral edema. She reports significant swelling in her legs, which led to an emergency room visit where she was advised to stay for further testing due to an abnormal heart marker. In the ED her Troponin was mildly elevated but repeat waqs within normal range. She reports intermittent chest pain. She follows with cardiology. The patient is on furosemide and spironolactone for renal insufficiency. She contacted her aqua ammonia operator who advised her to increase her Lasix dose. There is a concern for possible heart failure, as indicated by the elevated heart marker, although the wire sawyer noted that the elevation was not significant. The patient is scheduled to see her wire sawyer for further evaluation, including a possible echocardiogram. Additionally, the patient has a history of cirrhosis, which may contribute to her symptoms, and she is under the care of a music copyist. [facility] Medical History Vitamin D deficiency Degenerative joint disease of right shoulder Restrictive lung disease MATILDA (obstructive sleep apnea) Asthma COPD (chronic obstructive pulmonary disease) Blood dyscrasia Superficial bruising of lower leg Pain and swelling of right lower extremity Morbid obesity with BMI of 50.0-59.9, adult Pure hypercholesterolemia Fatigue Diabetes mellitus Pedal edema Nausea and vomiting Abdominal pain Atypical chest pain On beta kelsey at home Dyspnea on effort Asthma Sleep apnea with use of continuous positive airway pressure (CPAP) HTN (hypertension) Liver cirrhosis Pars defect of lumbar spine Spondylolisthesis, lumbar region Postlaminectomy syndrome, lumbar Spondylosis of lumbar spine Rectal bleeding Fatty pancreas Chronic constipation Cirrhosis of liver without ascites Body mass index [BMI] 50.0-59.9, adult Morbid (severe) obesity due to excess calories Depression Anxiety Insomnia Obstructive sleep apnea Periodic limb movement disorder Neuropathic pain of both feet GERD (gastroesophageal reflux disease) Gastroparesis Lumbar degenerative disc disease Benign essential hypertension Dyslipidemia Diastolic dysfunction Type 2 diabetes mellitus with diabetic autonomic (poly)neuropathy Surgical History H/O colonoscopy History of surgery History of esophagogastroduodenoscopy (EGD) H/O cardiac catheterization (~12/14/17) H/O section History of laryngoscopy (~02/10/19) History of ventral hernia repair (~2008) History of appendectomy History of lumbar discectomy Family History Father Diabetes mellitus Hypertension Mother Diabetes mellitus Hypertension Uterine cancer History of heart attack Social History Housing: Apartment Are you a primary hospice care consultant to a significant other at home: No Do you presently have visiting nurse or other home services: Yes (Home Health Aide, VNA) Alcohol intake: never Patient Tobacco Use Status: Former Tobacco user Tobacco use type: Cigarette Years Smoked: 10 e-Cigarette/Vaping Use: Never Used Second Hand Smoke Exposure: No service: No Current occupational status: disabled Cognitive needs: No Hearing needs: No Vision needs: Yes Questionnaire Thrive Questionnaire Date Thrive assessed: 11/30/24 I am a: Patient What is your living situation today?: I have a steady place to live Within the past 12 months, did the food you bought not last and you didn't have the money to get more?: I choose not to answer this question Within the past 12 months, did you worry whether your food would run out before you got money to buy more?: I choose not to answer this question Do you have trouble paying for medicines?: No Do you have trouble getting transportation to medical appointments?: No Do you have trouble paying your heating and electricity bill?: No Do you have trouble taking care of your child, family member or friend?: No Do you have trouble with day-to-day activities such as bathing, preparing meals, shopping, managing finances, etc.?: No Are you currently unemployed and looking for a job?: No Are you interested in more education?: No Please select the resources that you would like help with: None Currently or been in a relationship where the following occur: No concerns reported THRIVE Score: 0 CEDRIC-7 AMB Questionnaire CEDRIC-7 Date CEDRIC - 7 assessed: 12/02/24 Source: Developed by Drs. Tim Manning, Estephanie Newell, Lawrence Moreno and colleagues, with an educational amira from [employer]. Review of Systems Const Details: Positives besides what was mentioned in HPI are in BOLD Constitutional: No Weight Change, No Fever, No Chills, No Night Sweats, No Fatigue, No Malaise ENT/Mouth: No Hearing Changes, No Ear Pain, No Nasal Congestion, No Sinus Pain, No Hoarseness, No sore throat, No Rhinorrhea, No Swallowing Difficulty Eyes: No Eye Pain, No Swelling, No Redness, No Foreign Body, No Discharge, No Vision Changes Cardiovascular: No Chest Pain, No SOB, No PND, No Dyspnea on Exertion, No Orthopnea, No Claudication, No Edema, No Palpitations Respiratory: No Cough, No Sputum, No Wheezing, No Smoke Exposure, No Dyspnea Gastrointestinal: No Nausea, No Vomiting, No Diarrhea, No Constipation, No Pain, No Heartburn, No Anorexia, No Dysphagia, No Hematochezia, No Melena, No Flatulence, No Jaundice Genitourinary: No Dysmenorrhea, No DUB, No Dyspareunia, No Dysuria, No Urinary Frequency, No Hematuria, No Urinary Incontinence, No Urgency, No Flank Pain, No Urinary Flow Changes, No Hesitancy Musculoskeletal: No Arthralgias, No Myalgias, No Joint Swelling, No Joint Stiffness, No Back Pain, No Neck Pain, No Injury History Skin: No Skin Lesions, No Pruritis, No Hair Changes, No Breast/Skin Changes, No Nipple Discharge Neuro: No Weakness, No Numbness, No Paresthesias, No Loss of Consciousness, No Syncope, No Dizziness, No Headache, No Coordination Changes, No Recent Falls Psych: No Anxiety/Panic, No Depression, No Insomnia, No Personality Changes, No Delusions, No Rumination, No SI/HI/AH/VH, No Social Issues, No Memory Changes, No Violence/Abuse Hx., No Eating Concerns Heme/Lymph: No Bruising, No Bleeding, No Transfusions History, No Lymphadenopathy Endocrine: No Polyuria, No Polydipsia, No Temperature Intolerance Physical exam (Primary Care) Vital Signs: Last Vital Signs Temp 97.1 F 02/11/25 13:59 Pulse 92 02/11/25 13:59 Resp 18 02/11/25 13:59 BP 120/78 02/11/25 13:59 Pulse Ox 95 02/11/25 13:59 Oxygen Delivery Method Room Air 02/11/25 13:59 BMI result Body Mass Index 47.8 Tobacco/Smoking Status: Tobacco use Status Tobacco use date assessed 02/11/25 02/11/25 14:05 Patient Tobacco Use Status Former Tobacco user 02/11/25 14:05 Tobacco use type Cigarette 02/11/25 14:05 e-Cigarette/Vaping Use Never Used 02/11/25 14:05 Thrive Assessment: Date of Thrive Assessment Date Thrive assessed 11/30/24 02/11/25 14:05 Currently or been in a relationship where the following occur: No concerns reported Const Other: Pertinent findings are in BOLD GENERAL APPEARANCE NAD, activity normal for age, well developed/ well nourished, no cyanosis, pallor, or diaphoresis. EYES lids/conjunctiva normal. EARS/NOSE/THROAT Mucous membranes moist, nares normal, lips/teeth normal uvula midline without oral pharyngeal erythema, exudate or swelling TMs normal bilaterally. No lymphangitis/lymphedema. HEAD/NECK normocephalic atraumatic, no facial trauma, neck is supple. RESPIRATORY respiratory effort normal, speaks in full sentences, no tripod position, no accessory muscle use. Lungs clear to auscultation without rhonchi, wheezes, rales CARDIAC Regular rate and rhythm, no edema. ABDOMINAL Soft, ND/NT. No evidence of fluid wave. No pulsatile masses on exam, rebound tenderness, Castillo sign or pain over Mcburney's point. MUSCLES/EXTREMITIES No abnormal range of motion, no swelling. SKIN Warm, pink and dry. No rashes, dermatoses, petechiae or lesions. NEUROLOGICAL Speech is clear and appropriate. Normal level of consciousness. Gait and coordination are normal. 5/5 strength in all extremities. PSYCH Normal mood and affect. Judgement/competence is appropriate Coding Level of Care Code Est Pt Level 3 (50392) Diagnoses Edema R60.9 Time Spent (min) 20 Assessment & Plan Assessment & Plan (1) Edema: Code(s): R60.9 - Edema, unspecified Category: Medical Plan: Explained to the patient that her edema might be from Kidney, heart or liver disease. She had no edema in clinic today. Advised the patient on lifestyle modfication especially reducing the amount of sugar and carbohydrates. Patient will follow-up with GI, cardiology and renal specialist. I advised the patient to follow the specialists rec. She might need echocardiogram and be started on GDMT for heart failure. She reported getting an echo recently but I did not see the results in expanse. Continue diuretics and follow-up with specialists. Plan During the visit, we discussed the patient's peripheral edema and its potential causes, including renal insufficiency and possible heart failure. I advised the patient to follow up with her wire sawyer for further evaluation and to consider dietary modifications to manage her diabetes and weight. We also reviewed her current medications and the need for regular monitoring of her renal function. Orders: Orders AMB Hemoglobin A1c Today E11.43 - Type 2 diabetes mellitus with diabetic autonomic (poly)neuropathy, Z79.4 - [facility] (current) use of insulin
--- OUTSIDE RECORDS SUMMARY | 2025-02-11 16:24 | XMS_ITS | Clinical Summary ---
Author Organization [facility] ity Address [address] [place] [address] Care Team Providers Care Outside Upholsterer Name Role Phone Bi Dennis MD Primary [...] age to complete this topic Care Teams Outside Upholsterer Relationship Specialty Start Date End Date Bi Dennis MD [address] [place] [address] [address] [place], [place] PCP - General Internal Medicine 12/15/16
--- OUTSIDE RECORDS SUMMARY | 2025-02-11 16:24 | XMS_ITS | Encounter Summary ---
Author Organization [facility] Address [address] [facility] [address] [place] [address] Phone Care Team Providers Care Meat Cooler Name Role Phone Bi Dennis MD Primary Care Provider [phone] Encounter Details Date Type Department Care Team (Late st Contact Info) Description 11/19/2023 Office Communication [facility] [address] [facility] [address] [place] [id number] Liberty Hairston ARNP [address] [address] Social History Tobacco Use Types [...] Visit [facility] P.CLouie [address] [facility] [address] [place] [address] Juan Michelle MD [address] [facility] [address] [place] [address] documented as of this encounter Visit Diagnoses Not on filedocumented in this encounter Care Teams Meat Cooler Relationship Specialty Start Date End Date Bi Dennis MD [address] [place] [address] PCP - General Internal Medicine 04/11/21 documented as of this encounter
--- OUTSIDE RECORDS SUMMARY | 2025-02-11 16:24 | XMS_ITS | Clinical Summary ---
Author Organization [facility] Address [address] [place] [address] Care Team Providers Care Fishing Boat Mate Name Role Phone Bi Dennis MD Primary Care Provider [phone] Immunizations Immunization Administration Dates Next Due COVID-19, [...] Patient Date of Phone Billing Address Personal/Family [address] [place] [address] [address] [place] [address] MEDICAID MEDICARE PART B Care Teams Fishing Boat Mate Relationship Specialty Start Date End Date Bi Dennis MD [address] [place], [place] [id number] PCP - General Internal Medicine 11/03/19
--- OUTSIDE RECORDS SUMMARY | 2025-02-11 16:24 | XMS_ITS | Clinical Summary ---
Author Organization [facility] Address [address] [place] [address] Care Team Providers Care Billing Control Clerk Name Role Phone Bi Dennis Primary Care Provider [phone] Allergies Active Allergy Reactions Criticality Noted Date [...] 75+ series) 2044 Procedures * Due to [place] state law, this organization might not be sharing negative HIV tests. Procedure Name Priority Date/Time Associated Diagnosis Comments AMB EXTERNAL CT CHEST, OUTSI DE RESULT Routine 01/09/2019 from Last 3 Months or Most Recently Relevant to Health Maintenance Results * Due to [place] Validic law, this organization might not be sharing negative HIV tests. * CT Chest, Outside Result (01/09/2019) Anatomical Region Laterality Modality Other us In System Do Not Edit Provider-Not AMB EXTERNAL RESULT PROCEDURES Final Result from Last 3 Months or Most Recently Relevant to Health Maintenance Insurance [facility] Care Teams Billing Control Clerk Relationship Specialty Start Date End Date Bi Dennis [address] [place] [address] dr Lavell Monte, [place] [address] PCP - General Internal Medicine 01/05/20
--- OUTSIDE RECORDS SUMMARY | 2025-02-11 16:24 | XMS_ITS | Clinical Summary ---
Author Organization [facility] Address [address] [facility] [address] [place] [address] Phone Care Team Providers Care Staffing Mgr Name Role Phone Bi Dennis MD Primary Care Provider [phone]- [phone] Allergies Active Allergy Reactions Criticality Noted Date [...] Office Visit [facility] [address] [address] Liberty Hairston ARNP Stage 3a chronic kidney disease (HCC) (Primary Dx); Bilateral localized swelling of lower legs; Hypertension; Hyperkalemia; Hypo-osmolality and hyponatremia; Vitamin D deficiency, not otherwise specified 12/02/2024 Office Communication [facility] [address] [address] Liberty Hairston ARNP 12/02/2024 Orders Only [facility] [address] [address] Liberty Hairston ARNP Hyperkalemia (Primary Dx); Stage 3a chronic kidney disease (HCC); Hypertension 11/27/2024 1:45 PM EDT Office Visit [facility] [address] [address] Liberty Hairston ARNP Stage 3a chronic kidney disease (HCC) (Primary Dx); Hypertension; Frequency of micturition; Hyperkalemia; Hypo-osmolality and hyponatremia; Vitamin D deficiency, not otherwise specified 11/19/2024 Refill [facility] [address] [address] Liberty Hairston ARNP Stage 3b chronic kidney [...] of the [facility] [address] [phone] Juan Michelle MD [address] [id number] Health Maintenance Due Date Last Done Comments [...] 10.4 8.7 - 10.7 mg/dL eGFR Non-Afr Rwandan 62 01/26/2025 us Historical Provider LAB BLOOD ORDERABLES Araceli l Result * (ABNORMAL) Basic metabolic panel (12/09/2024 1:11 PM EDT) Glucose 382(H) 70 - 99 mg/dL [facility] BUN 20 6 - 24 mg/dL [facility] Creatinine 1.00 0.57 - 1.00 mg/dL [facility] eGFR CKD-EPI CR 2020 67 >59 mL/min/1.7 3 [facility] BUN/Creatinine Ratio 20 9 - 23 [facility] Sodium 132(L) 134 - 144 mmol/L [facility] Potassium 5.2 3.5 - 5.2 mmol/L [facility] Chloride 98 96 - 106 mmol/L [facility] Bicarbonate (CO2) 20 20 - 29 mmol/L [facility] Calcium 9.4 8.7 - 10.2 mg/dL [facility] Blood Venous blood / Unknown 12/09/2024 1:11 PM EDT 12/09/2024 [facility] LAB BLOOD ORDERABLES Final Result [facility] [place] [address] [place] [address] * Result (11/27/2024 2:49 PM EDT) Result Comment [facility] Comment: Mixed urogenital claudia 10,000-25,000 colony forming units per mL 11/27/2024 2:49 PM EDT 11/27/2024 [facility] MICRO[facility] - GENERAL ORDERABLES Final Result [facility] [place] [address], [address] [place] [address] * Microscopic Examination (11/27/2024 2:49 PM EDT) WBC, Urine 0-5 0 - 5 /hpf [facility] [place] RBC, Urine 0-2 0 - 2 /hpf [facility] Squamous Epithelial, Urine 0-10 0 - 10 /hpf [facility] Casts None seen None seen /lpf [facility] Bacteria, Urine Few None seen/Few [facility] 11/27/2024 2:49 PM EDT 11/27/2024 Liberty Hairston [facility] LAB MICROBIOLOGY - GENERAL ORDERABLES Final Result [facility] [place] [address] [place] [address] * Urine Protein / creatinine ratio (11/27/2024 2:49 PM EDT) Creatinine, Ur 87.7 Not Estab. mg/dL [facility] Protein, Ur 8.4 Not Estab. mg/dL [facility] Urine Protein/Creatin ine Ratio 96 0 - 200 mg/g creat [facility] Urine Urine specimen obtained by clean catch procedure / Unknown 11/27/2024 2:49 PM EDT 11/27/2024 [facility] LAB URINE ORDERABLES Final Result [facility] [place] [address] [place] [address] * Urine Albumin / Creatinine Ratio (11/27/2024 2:49 PM EDT) Albumin, Urine 6.9 Not Estab. ug/mL [facility] Albumin/Creatin ine Ratio 8 0 - 29 mg/g creat [facility] Comment: Normal: 0 - 29 Moderately increased: 30 - 300 Severely increased: >300 Urine Urine specimen obtained by clean catch procedure / Unknown 11/27/2024 2:49 PM EDT 11/27/2024 Liberty SOLIMAN LAB URINE ORDERABLES Final Result [facility] [place] [address] [place] [address] * (ABNORMAL) Urinalysis with microscopic (11/27/2024 2:49 PM EDT) Specific [place], Urine >=1.030(A) 1.005 - 1.030 [facility] [place] [phone] pH Urine 5.5 5.0 - 7.5 [facility] [phone] Color, Urine Yellow Yellow [facility] Appearance Urine Clear Clear Lab mary jane [place] [phone] WBC Esterase Urine Negative Negative [facility] [place] Protein, Ur Trace Negative/Tra ce [facility] [place] Glucose, Ur 3+(A) Negative [facility] [place] Ketones, Urine Negative Negative [facility] [place] Blood Urine Negative Negative [facility] [place] Bilirubin Urine Negative Negative [facility] [place] Urobilinogen Urine 0.2 0.2 - 1.0 mg/dL [facility] [place] Nitrite, Urine Negative Negative [facility] [place] Microscopic Examination Comment [facility] [place] Comment:Microscopic follows if indicated. Other Microsc. Observations See below: [facility] Comment:Microscopic was shweta cated and was performed. Urine Urine specimen obtained by clean catch procedure / Unknown 11/27/2024 2:49 PM EDT 11/27/2024 [facility] LAB URINE ORDERABLES Final Result [facility] [address] [place] [address] * Urine culture (11/27/2024 2:49 PM EDT) Culture Result, Urine Final report [facility] Urine Urine specimen obtained by clean catch procedure / Unknown 11/27/2024 2:49 PM EDT 11/27/2024 Comment: [employer] [facility] LAB URINE ORDERABLES Final Result Performing Organization Address City/[facility]/ZIP Co de Phone Number [employer] [place] [address], [address] [place] [address] * Vitamin D 25 hydroxy (11/27/2024 1:25 PM EDT) Vitamin D, 25-OH, Total 33.3 30.0 - 100.0 ng/mL [facility] Comment: Vitamin D deficiency has been defined by the [place] of Medicine and an Endocrine Society practice guideline as a level of serum 25-OH vitamin D less than 20 ng/mL (1,2). The Endocrine Society went on to further define vitamin D insufficiency as a level between 21 and 29 ng/mL (2). 1. IOM ([place] of Medicine). 2010. Dietary reference intakes for calcium and D. [place]: The National Academies Press. 2. Janae KIM, Carol WHITE, Igor HOOPER, et al. Evaluation, treatment, and prevention of vitamin D deficiency: an Endocrine Society clinical practice guideline. JCEM. 2010; 96(7):1911-30. Blood specimen (specimen) Venous blood / Unknown 11/27/2024 1:25 PM EDT 11/27/2024 [employer] [facility] LAB BLOOD ORDERABLES Final Result [facility] [place] [address] [place] [address] * CBC (11/27/2024 1:25 PM EDT) WBC 8.8 3.4 - 10.8 x10E3/uL [facility] [place] RBC 4.63 3.77 - 5.28 x10E6/uL [facility] Hemoglobin 13.4 11.1 - 15.9 g/dL [facility] Hematocrit 42.5 34.0 - 46.6 % [facility] MCV 92 79 - 97 fL [facility] MCH 28.9 26.6 - 33.0 pg [facility] MCHC 31.5 31.5 - 35.7 g/dL [facility] RDW 13.1 11.7 - 15.4 % [facility] Platelets 230 150 - 450 x10E3/uL [facility] Blood specimen (specimen) Venous blood / Unknown 11/27/2024 1:25 PM EDT 11/27/2024 Liberty Hairston [facility] LAB BLOOD ORDERABLES Final Result [facility] [address] [place] [address] * PTH, intact (11/27/2024 1:25 PM EDT) PTH 19 15 - 65 pg/mL [facility] Blood specimen (specimen) Venous blood / Unknown 11/27/2024 1:25 PM EDT 11/27/2024 [facility] LAB BLOOD ORDERABLES Final Result [facility] [place] [address] [place] [address] * Magnesium (11/27/2024 1:25 PM EDT) Pathologist [facility] Magnesium 1.7 1.6 - 2.3 mg/dL [facility] Blood specimen (specimen) Venous blood / Unknown 11/27/2024 1:25 PM EDT 11/27/2024 [facility] LAB BLOOD ORDERABLES Final Result Performing Organization Address City/[facility]/ZIP Co de Phone Number [facility] [place] [address] [place] [address] * (ABNORMAL) Renal function panel (11/27/2024 1:25 PM EDT) Pathologist [facility] Glucose 445(H) 70 - 99 mg/dL [facility] [place] BUN 26(H) 6 - 24 mg/dL [facility] [place] Creatinine 1.13(H) 0.57 - 1.00 mg/dL [facility] [place] eGFR CKD-EPI CR 2020 57(L) >59 mL/min/1.7 3 [facility] BUN/Creatinine Ratio 23 9 - 23 [facility] Sodium 132(L) 134 - 144 mmol/L [facility] Potassium 5.4(H) 3.5 - 5.2 mmol/L [facility] Chloride 98 96 - 106 mmol/L [facility] Bicarbonate (CO2) 18(L) 20 - 29 mmol/L [facility] [place] Calcium 9.8 8.7 - 10.2 mg/dL [facility] Albumin 4.0 3.8 - 4.9 g/dL [facility] Phosphorus 3.7 3.0 - 4.3 mg/dL [facility] Blood specimen (specimen) Venous blood / Unknown 11/27/2024 1:25 PM EDT 11/27/2024 Liberty Yovanny SOLIMAN LAB BLOOD ORDERABLES Final Result [facility] [address] [place] [address] * (ABNORMAL) Hemoglobin A1c (05/06/2021 9:46 AM EST) Hemoglobin A1C 11.9(H) (4.0-5.6) % [facility] Comment: MONITORING: In known diabetic patients, hemoglobin A1c targets should be discussed with health care provider. DIAGNOSTIC USE: The [place] Diabetes Association (ADA) and the World Health [...] Supplement 1 Testing performed or reported by [facility], a Service of [facility], [address] [place] [address] Winter Cruz MD, District Extension Service Agent [facility]# [id number] Blood specimen (specimen) Venous blood / Unknown 05/06/2021 9:46 AM EST 05/06/2021 9:48 AM EST Linden Munoz MD LAB BLOOD ORDERABLES Final Re sult [facility] from Last 3 Months or Most Recently Relevant to Health Maintenance Insurance [facility] ([id number]) [facility] MCR ([id number]) Care Teams Staffing Mgr Relationship Specialty Start Date End Date Bi Dennis MD [address] [place] [address] PCP - General Internal Medicine 04/11/21
--- OUTSIDE RECORDS SUMMARY | 2025-02-11 16:24 | XMS_ITS | Encounter Summary ---
Author Organization [facility] Address [address] [address] Phone Care Team Providers Care Business Education Teacher Name Role Phone Bi Dennis MD Primary Care Provider [phone]- [phone] Encounter Details Date Type Department Care Team ([facility] Contact Info) Description 04/23/2024 Office Communication [facility] [address] [address] Liberty Hairston ARNP [address] [place] [phone] Social History Tobacco Use Types Packs/Day [...] Office Visit [facility] [address] [address] Juan Michelle MD [address] [address] documented as of this encounter Visit Diagnoses Not on filedocumented in this encounter Care Teams Business Education Teacher Relationship Specialty Start Date End Date Bi Dennis MD [address] [place] [address] PCP - General Internal Medicine 04/11/21 documented as of this encounter
== END 2025-02-11 14:32 | disposition home or self-care (01) ==
LOC: HO.HMCH 13:54
PROVIDERS: PCP Internal Medicine; Visit Provider Internal Medicine
DX: E11.43 Type 2 diabetes mellitus with diabetic autonomic (poly)neuropathy (principal); Z79.4 Long term (current) use of insulin; R60.9 Edema, unspecified

== ENCOUNTER → 2025-02-11 13:53 | Outpatient (BNVA) | payer OTHER, SELFPAY | PROVIDERS: PCP Internal Medicine; Visit Provider Internal Medicine | DX: R60.9 Edema, unspecified (principal); E11.43 Type 2 diabetes mellitus with diabetic autonomic (poly)neuropathy; Z79.4 Long term (current) use of insulin | CPT/HCPCS: 83036; 99212 ==

== ENCOUNTER 2025-03-03 12:28 | Outpatient (AMB) | payer OTHER, SELFPAY ==
--- NOTE | 2025-03-03 12:34 | MHC.OFFVIS ---
Intake Visit Reasons: pain in legs and feet Allergies adhesive tape Allergy (Intermediate, Verified 02/11/25 14:01) Rash empagliflozin (From JARDIANCE) Allergy (Intermediate, Verified 02/11/25 14:01) Rash sitagliptin (From JANUVIA) Adverse Reaction (Severe, Verified 02/11/25 14:01) Rash,nausea, hypoglycemia metformin (METFORMIN) Adverse Reaction (Intermediate, Verified 02/11/25 14:01) Rash, GI upset jardiance Allergy (Intermediate, Uncoded 02/10/25 15:06) Rash metformin Allergy (Intermediate, Uncoded 02/10/25 15:06) Rash Medication List - Last Reconciled 03/03/25 by Camila Donis MD [ABSORBANT HEAVY PADS As directed] albuterol sulfate 90 mcg/actuation 2 puffs PO Q4-6H PRN aspirin (Adult Low Dose Aspirin) 81 mg PO DAILY atorvastatin 40 mg PO BEDTIME 90 days budesonide-formoterol 160-4.5 mcg/actuation (Symbicort) 2 puffs inhalation BID cholecalciferol (vitamin D3) 50 mcg PO DAILY 90 days clotrimazole-betamethasone 1-0.05 % 1 appl topical BID [DISPOSABLE WIPES As directed] fluoxetine 10 mg PO DAILY fluticasone propionate 50 mcg/actuation 1 spray intranasal DAILY furosemide (Lasix) 100 mg PO DAILY glipizide ER 10 mg PO BID insulin regular hum U-500 conc 200 units in AM, 150 units at lunchtime and 150 units at dinnertime subcutaneously; lisinopril 5 mg PO DAILY 90 days lorazepam 0.5 mg PO TID PRN 30 days lubiprostone 16 mcg (2 x 8 mcg) PO BID 60 days meloxicam 15 mg PO DAILY PRN 30 days metoclopramide HCl 10 mg PO TID PRN metoprolol succinate ER 25 mg PO DAILY omeprazole 20 mg PO BID oxycodone 5 mg PO Q6-8H PRN 7 days pramipexole 1 mg PO TID 30 days primidone 50 mg PO BEDTIME 30 days sennosides (Black-Draught Lax-Senna) 8.6 mg PO BID spironolactone 100 mg PO BID 30 days tirzepatide (Mounjaro) 10 mg subcut QWEEK tramadol Take 1 to 2 tablets orally twice a day as needed for pain PRN; 25 days HPI Comments Details: ?54 yrs woman with BETS and DPN, has noted some increase in tremors especially left hand. Leg pains are bad. Sugar is under control. Chronic low back pain ongoing. Pain to LLE had improved with gabapentin, pain is a squeezing sensation that starts in thigh and goes down leg. No low back pain radiating down leg. Almost constant numbness to feet. Tripping over feet, no falls. Feels strength in legs have decreased (L > R). Taking Tramadol BID, oxycodone every other day for back pain, no effect on LLE pain. Last A1c was just above 8, previously 10. Tremors in hands continue, worse in the morning. Waking up with tremors, jittery body, and hands shake. Her sister tells her she makes jerking movements at night and her speech sounds slurred when she wakes. She is concerned for memory changes, notices she is more forgetful recently. While cooking at home, she not remember how to use buttons on stove and had to call sister. Has trouble falling asleep and staying asleep, has MATILDA but does not have CPAP. Multiple stressors including chronic pain and being unable to visit sister as she is worried about walking up/down stairs. Decline in short term memory. ?Was seeing neurosurgeon in [place]. Has been diagnosed with gastroparesis. ?No recurrence of passing out , but gets lightheaded after getting up and taking a few steps. Cardiac cath was normal. Believed to be due to orthostasis because BP was 67/40, however patient says that each of these episodes have occurred when sitting down. Some burning in toes. Low back pain. She has a 8 year history of diabetes with poor control and sugars running 200-250 fasting. Going to be seeing a bus greaser. One-year history of pain in her legs sometimes in the lateral aspect of the leg and thigh and mostly on the top of the right foot more than the left. It also tingles at night. The tips of the toes sometimes feel numb. Her symptoms have been getting worse. Nerve conduction study in August of 2014 did not show diffuse neuropathy. There was some motor axonal loss in the tibial nerves. [facility] Medical History Vitamin D deficiency Degenerative joint disease of right shoulder Restrictive lung disease MATILDA (obstructive sleep apnea) Asthma COPD (chronic obstructive pulmonary disease) Blood dyscrasia Superficial bruising of lower leg Pain and swelling of right lower extremity Morbid obesity with BMI of 50.0-59.9, adult Pure hypercholesterolemia Fatigue Diabetes mellitus Pedal edema Nausea and vomiting Abdominal pain Atypical chest pain On beta kelsey at home Dyspnea on effort Asthma Sleep apnea with use of continuous positive airway pressure (CPAP) HTN (hypertension) Liver cirrhosis Pars defect of lumbar spine Spondylolisthesis, lumbar region Postlaminectomy syndrome, lumbar Spondylosis of lumbar spine Rectal bleeding Fatty pancreas Chronic constipation Cirrhosis of liver without ascites Body mass index [BMI] 50.0-59.9, adult Morbid (severe) obesity due to excess calories Depression Anxiety Insomnia Obstructive sleep apnea Periodic limb movement disorder Neuropathic pain of both feet GERD (gastroesophageal reflux disease) Gastroparesis Lumbar degenerative disc disease Benign essential hypertension Dyslipidemia Diastolic dysfunction Type 2 diabetes mellitus with diabetic autonomic (poly)neuropathy Surgical History H/O colonoscopy History of surgery History of esophagogastroduodenoscopy (EGD) H/O cardiac catheterization (~12/14/17) H/O section History of laryngoscopy (~02/10/19) History of ventral hernia repair (~2008) History of appendectomy History of lumbar discectomy Family History Father Diabetes mellitus Hypertension Mother Diabetes mellitus Hypertension Uterine cancer History of heart attack Social History Housing: Apartment Are you a primary hourly caregiver to a significant other at home: No Do you presently have visiting nurse or other home services: Yes (Home Health Aide, VNA) Alcohol intake: never Patient Tobacco Use Status: Former Tobacco user Tobacco use type: Cigarette Years Smoked: 10 e-Cigarette/Vaping Use: Never Used Second Hand Smoke Exposure: No service: No Current occupational status: disabled Cognitive needs: No Hearing needs: No Vision needs: Yes Review of Systems Const Details: General/Constitutional:? Change in appetite?denies.? Fatigue?denies.? Fever?denies.? Weight gain?denies.? Weight loss?denies.? ?? Sleep:? Difficulty getting to sleep?admits.? Difficulty maintaining sleep?admits.? Daytime sleepiness?denies.? ?? Respiratory:? Shortness of breath?admits.? Chest pain?admits.? ?? Cardiovascular:? Chest pain at rest?denies.? Chest pain with exertion?denies.? Dizziness?denies.? Fluid accumulation in the legs?denies.? Irregular heartbeat?denies.? Palpitations?denies.? ?? Gastrointestinal:? Constipation?admits.? Diarrhea?denies.? Difficulty swallowing?denies.? Heartburn?denies.? Nausea?denies.? ?? Genitourinary:? Frequent urination?admits.? Urgency?admits.? Incontinence?denies.? ?? Musculoskeletal:? Neck pain?denies.? Back pain?admits.? Joint stiffness?admits.? Sciatica?denies.? ?? Neurologic:? Difficulty swallowing?denies.? Balance difficulty?denies.? Coordination?normal.? Difficulty speaking?denies.? Dizziness?denies.? Fainting?denies.? Gait abnormality?denies.? Headache?admits.? Loss of strength?denies.? Loss of use of extremity?denies.? Low back pain?denies.? Memory loss?denies.? Seizures?denies.? Tics?denies.? Tingling/Numbness?admits.? Transient loss of vision?denies.? Tremor?denies.? ?? Psychiatric:? Anxiety?admits.? Auditory/visual hallucinations?denies.? Delusions?denies.? Depressed mood?admits.? Stressors?admits.? Suicidal thoughts?denies.? ?? Physical Exam Neuro Other: Neurological: ? Abnormal neurological findings:?Fine tremors of the extended upper extremities. DTRs 1+. Tearful.? Mental Status:?alert and oriented X 3,?Normal attention, orientation, memory and affect.? Cranial Nerves:?Pupils are equal, round and reactive to light. Fundoscopy shows normal disc bilaterally. External occular muscles are intact. Visual zaragoza are full, no ptosis. Face is symmetrical, no facial weakness or droop. Facial sensations are normal. Tongue protrudes in midline. Palate elevates symmetrically. Shoulder shrugging is normal..? Motor Examination:?Normal muscle tone, bulk and strength,?No atrophy or fasciculations,?No drift of the extended upper extremities,?Deep tendon reflexes are 1+?,?Plantars are flexor?.? Straight Leg Raising:?90 degrees.? Sensory Exam:?Normal light touch, temperature, pinprick, vibration and joint-position sensations?,?Rhomberg sign is absent.? Coordination:?no ataxia,?no titubation,?fcynwz-[id number], qtzm-qrja-ylih test and rapid alternating movements were normal.? Gait Exam:?Within normal limits.? Cerebellar Signs:?Qsyhhq-qr-[id number] and cvrz-ee-gwtm is normal,?no dysdiadochokinesia?.? Extrapyramidal System:?No tremor, rigidity with normal facial expressions,?No bradykinesia, no bradyphrenia. Normal arm swing and posture. No propulsion or retropulsion.? Speech:?Normal,?no dysphasia or dysarthria..? Mini Mental Status Exam: ? Level of Consciousness:?Alert.? Orientation:?Knows correct year, month, date, day and season,?Knows correct city, county and state. Knows correct location and floor.? Registration:?Able to register 3 objects.? Attention:?Serial 7's performed accurately.? Recall:?Able to recall 3 out of 3 objects.? Language:?Normal spontaneous speech, fluency, repetition,naming, comprehension, reading and writing.? Total Score:?30/30.? General Examination: ? GENERAL APPEARANCE:?normal,?in no acute distress.? HEART:?S1, S2 normal,?no murmurs.? LUNGS:?clear anteriorly and posteriorly.? MUSCULOSKELETAL:?normal.? EXTREMITIES:?no edema.? PSYCH:?alert, oriented,?cognitive function intact,?cooperative with exam.? Assessment & Plan Assessment & Plan (1) Diabetic peripheral neuropathy: Comment: 10/25/22 NCV/EMG LE Axonal and demyelinating sensory and motor peripheral neuropathy with mild progression compared to the study done in 2020. EMG of the left L4-S1 innervated muscles is consistent with neuropathic changes. MRI L spine 2018. Code(s): E11.42 - Type 2 diabetes mellitus with diabetic polyneuropathy Category: Medical (2) Essential tremor: Code(s): G25.0 - Essential tremor Category: Medical (3) Memory change: Code(s): R41.3 - Other amnesia Category: Medical Plan Increase primidone to 50 mg b.i.d.. Reschedule EEG for memory loss and syncope Orders: Orders EEG Routine Today R41.3 - Other amnesia Medications: Changed From primidone 50 mg PO BEDTIME 30 days 30 tabs 2RF To primidone 50 mg PO BID 60 tabs 8RF 30 days Coding Level of Care Code Est Pt Level 4 (05243) Diagnoses Diabetic peripheral neuropathy E11.42 Essential tremor G25.0 Memory change R41.3
--- OUTSIDE RECORDS SUMMARY | 2025-03-03 15:08 | XMS_ITS | Clinical Summary ---
Author Organization [facility] Address [address] [facility] [address] [place] [address] Phone Care Team Providers Care Software Testing Specialist Name Role Phone Bi Dennis MD Primary Care Provider [phone]- [phone] Allergies Active Allergy Reactions Criticality Noted Date [...] mg under the skin 03/27/20 24 Active Continuous Glucose Transmitter (Dexcom G6 Transmitter) miscIndications: Stage 3a chronic kidney disease (HCC) 09/25/19 25 Active furosemide (LASIX) 20 MG tabletIndication s:Hypertension Take 5 tablets (100 mg total) by mouth 1 (one) time each day Take 3 tablets in the AM, take 2 tablets in the afternoon 450 tablet 01/27/20 25 025 Active cholecalciferol (VITAMIN D-3) 50 MCG (1999 UT) tabletIndication s:Stage 3b chronic kidney disease (HCC),Vitamin D deficiency, not otherwise specified TAKE ONE TABLET BY MOUTH EVERY MORNING ^1R1 30 tablet 2 02/13/20 25 Active cholecalciferol (VITAMIN D-3) 50 MCG (1999 UT) tabletIndication s:Stage 3b chronic kidney disease (HCC),Vitamin D deficiency, not otherwise specified TAKE ONE TABLET BY MOUTH EVERY MORNING ^1R1 30 tablet 2 11/20/19 25 025 Discontinued Active Problems Problem Noted Date [...] Encounters Date Type Department Care Team Description 02/12/2025 Refill [facility] [address] [id number] Liberty Hairston ARNP Stage 3b chronic kidney disease (HCC); Vitamin D deficiency, not otherwise specified 01/26/2025 1:15 PM EDT Office Visit [facility] [address] [phone] Liberty Hairston ARNP Stage 3a chronic kidney disease (HCC) (Primary Dx); Bilateral localized swelling of lower legs; Hypertension; Hyperkalemia; Hypo-osmolality and hyponatremia; Vitamin D deficiency, not otherwise specified 12/02/2024 Office Communication [facility] [address] [phone] Liberty Hairston ARNP 12/02/2024 Orders Only [facility] [address] [phone] Liberty Hairston ARNP Hyperkalemia (Primary Dx); Stage 3a chronic kidney disease (HCC); Hypertension from Last 3 Months Immunizations Immunization Administration [...] Visit [facility] [address] [phone] Juan Michelle MD [address] [phone] Health Maintenance Due Date Last Done Comments [...] Visual Foot Exam 06/20/2020 Diabetes: Hemoglobin A1C 08/04/202105/06/ 021, 04/11/2021, 10/24/2019 Influenza Vaccine (#1) 2025 2, 02/26/2019, 03/06/2018, Additional history exists Procedures Procedure Name Priority Date/Time Associated Diagnosis Comments BASIC METABOLIC PANEL Routine 02/16/2025 9:43 AM EDT Stage 3a chronic kidney disease (HCC) Bilateral localized swelling of lower legs Hypertension EXT RESULT ENTRY Routine 01/26/2025 EXT RESULT ENTRY Routine 01/23/2025 BASIC METABOLIC PANEL Routine 12/09/2024 1:11 PM EDT Hyperkalemia Stage 3a chronic kidney disease (HCC) Hypertension HEMOGLOBIN A1C Routine 05/06/2021 9:46 AM EST Type 2 diabetes mellitus with diabetic chronic kidney disease (HCC) Hypertension from Last 3 Months or Most Recently Relevant to Health Maintenance Results * (ABNORMAL) Basic metabolic panel (02/16/2025 9:43 AM EDT) Only the most recent of2 resultswithin the time period is included. Glucose 340(H) 70 - 99 mg/dL [facility] BUN 22 6 - 24 mg/dL [facility] Creatinine 1.24(H) 0.57 - 1.00 mg/dL [facility] eGFR CKD-EPI CR 2020 51(L) >59 mL/min/1.7 3 [facility] BUN/Creatinine Ratio 18 9 - 23 [facility] Sodium 137 134 - 144 mmol/L [facility] Potassium 5.0 3.5 - 5.2 mmol/L [facility] Chloride 101 96 - 106 mmol/L [facility] Bicarbonate (CO2) 20 20 - 29 mmol/L [facility] Calcium 9.4 8.7 - 10.2 mg/dL [facility] Blood Venous blood / Unknown 02/16/2025 9:43 AM EDT 02/16/2025 Liberty Hairston [facility] LAB BLOOD ORDERABLES Final Result [facility] [address] [place] [address] * EXT RESULT ENTRY (01/26/2025) Only the [...] 10.4 8.7 - 10.7 mg/dL eGFR Non-Afr Barbadian 62 01/26/2025 Historical Provider LAB BLOOD ORDERABLES Araceli l Result * (ABNORMAL) Hemoglobin A1c (05/06/2021 9:46 AM EST) Hemoglobin A1C 11.9(H) (4.0-5.6) % [facility] Comment: MONITORING: In known diabetic patients, hemoglobin A1c targets should be discussed with health care provider. DIAGNOSTIC USE: The [place] Diabetes Association (ADA) and the World Health [...] Supplement 1 Testing performed or reported by [facility], a Service of [facility], [address] [place] [address] Winter Cruz MD, Multimedia Artist [facility]# [id number] Blood specimen (specimen) Venous blood / Unknown 05/06/2021 9:46 AM EST 05/06/2021 9:48 AM EST us Linden Munoz MD LAB BLOOD ORDERABLES Final Re sult [facility] from Last 3 Months or Most Recently Relevant to Health Maintenance Insurance MCR ([id number]) * Guarantor: Maria C Guevara Account Type Relation to Patient Date of Phone Billing Address Personal/Family Self [address] [facility] MCR ([id number]) Care Teams Software Testing Specialist Relationship Specialty Start Date End Date Bi Dennis MD [address] [place] [address] PCP - General Internal Medicine 04/11/21
--- OUTSIDE RECORDS SUMMARY | 2025-03-03 15:08 | XMS_ITS | Encounter Summary ---
Author Organization [facility] Address [address] [facility] [address] [place] [address] Phone Care Team Providers Care Ethylbenzene Converter Helper Name Role Phone Bi Dennis MD Primary Care Provider [phone]- [phone] Encounter Details Date Type Department Care Team (Late st Contact Info) Description 11/19/2023 Office Communication [facility] [place] [address] [facility] [address] [place] [phone] Liberty Hairston ARNP [address] [phone] Social History Tobacco Use Types [...] Visit [facility] [address] [facility] [address] [place] [address] Juan Michelle MD [address] [facility] [address] [place] [address] documented as of this encounter Visit Diagnoses Not on filedocumented in this encounter Care Teams Ethylbenzene Converter Helper Relationship Specialty Start Date End Date Bi Dennis MD [address] [place] [address] PCP - General Internal Medicine 04/11/21 documented as of this encounter
--- OUTSIDE RECORDS SUMMARY | 2025-03-03 15:08 | XMS_ITS | Clinical Summary ---
Author Organization [facility] Address [address] [place] [address] Care Team Providers Care Rock Picker Name Role Phone Bi Dennis MD Primary Care Provider [phone] Immunizations Immunization Administration Dates Next Due COVID-19, [...] Patient Date of Phone Billing Address Personal/Family [address] [place] [address] [address] [place] [address] MEDICAID MEDICARE PART B Care Teams Rock Picker Relationship Specialty Start Date End Date Bi Dennis MD [address] [place], [place] [id number] PCP - General Internal Medicine 11/03/19
--- OUTSIDE RECORDS SUMMARY | 2025-03-03 15:08 | XMS_ITS | Encounter Summary ---
Author Organization [facility] Address [address] [address] Phone Care Team Providers Care Auto Club Safety Program Coordinator Name Role Phone Bi Dennis MD Primary Care Provider [phone]- [phone] Encounter Details Date Type Department Care Team ([facility] Contact Info) Description 04/23/2024 Office Communication [facility] [address] [phone] Liberty Hairston ARNP [address] [place] [phone] Social History Tobacco Use Types Packs/Day [...] Office Visit [facility] [address] [phone] Juan Michelle MD [address] [phone] documented as of this encounter Visit Diagnoses Not on filedocumented in this encounter Care Teams Auto [employer] Safety Program Coordinator Relationship Specialty Start Date End Date Bi Dennis MD [address] [place] [address] PCP - General Internal Medicine 04/11/21 documented as of this encounter
--- OUTSIDE RECORDS SUMMARY | 2025-03-03 15:09 | XMS_ITS | Clinical Summary ---
Author Organization [facility] Address [address] [place] [address] Care Team Providers Care Technology Trainer Name Role Phone Bi Dennis MD Primary [...] age to complete this topic Care Teams Technology Trainer Relationship Specialty Start Date End Date Bi Dennis MD [address] [place] [address] [address] [place], [place] PCP - General Internal Medicine 12/15/16
--- OUTSIDE RECORDS SUMMARY | 2025-03-03 15:09 | XMS_ITS | Clinical Summary ---
Author Organization [facility] Address [address] [place] [address] Care Team Providers Care Covering Machine Operator Name Role Phone Bi Dennis Primary Care Provider [phone] Allergies Active Allergy Reactions Criticality Noted Date [...] series) 2044 Procedures * Due to [place] state law, this organization might not be sharing negative HIV tests. Procedure Name Priority Date/Time Associated Diagnosis Comments AMB EXTERNAL CT CHEST, OUTSI DE RESULT Routine 01/09/2019 from Last 3 Months or Most Recently Relevant to Health Maintenance Results * Due to [place] Sorbisense law, this organization might not be sharing negative HIV tests. * CT Chest, Outside Result (01/09/2019) Anatomical Region Laterality Modality Other us In System Do Not Edit Provider-Not AMB EXTERNAL RESULT PROCEDURES Final Result from Last 3 Months or Most Recently Relevant to Health Maintenance Insurance [facility] Care Teams Covering Machine Operator Relationship Specialty Start Date End Date Bi Dennis [address] [place] [address] dr Lavell Monte, [place] [address] PCP - General Internal Medicine 01/05/20
== END 2025-03-03 13:01 | disposition home or self-care (01) ==
LOC: HO.HSM 12:29
PROVIDERS: PCP Internal Medicine; Visit Provider Psychiatry & Neurology Neurology
DX: E11.42 Type 2 diabetes mellitus with diabetic polyneuropathy (principal); G25.0 Essential tremor; R41.3 Other amnesia
CPT/HCPCS: 99214

== ENCOUNTER → 2025-03-03 12:28 | Outpatient (BNVA) | payer OTHER, SELFPAY | PROVIDERS: PCP Internal Medicine; Visit Provider Psychiatry & Neurology Neurology | DX: E11.42 Type 2 diabetes mellitus with diabetic polyneuropathy (principal); G25.0 Essential tremor; R41.3 Other amnesia | CPT/HCPCS: 99212 ==

== ENCOUNTER 2025-03-06 14:33 | Outpatient (AMB) | payer OTHER, SELFPAY ==
[2025-03-06 14:35] VITALS: BP 136/84; PULSE 85; O2SAT 95; BMI 49.6
--- NOTE | 2025-03-06 14:35 | A.OFFPC_ITS ---
Vital Signs 03/06/25 14:35 Height 5 ft 5 in Weight 298 lb BMI 49.6 BP 136/84 Blood Pressure Location Lt brachial Position Sitting Pulse 85 Pulse Source Pulse Oximeter Pulse Oximetry (%) 95 Oxygen Delivery Method Room Air Intake Visit Reasons: 4 mo dm/copd/hld/constipation with Dr. Mackay Brim Molder Required: No Accompanied by: Self / Same As Patient Allergies adhesive tape Allergy (Intermediate, Verified 03/06/25 14:58) Rash empagliflozin (From JARDIANCE) Allergy (Intermediate, Verified 03/06/25 14:58) Rash sitagliptin (From JANUVIA) Adverse Reaction (Severe, Verified 03/06/25 14:58) Rash,nausea, hypoglycemia metformin (METFORMIN) Adverse Reaction (Intermediate, Verified 03/06/25 14:58) Rash, GI upset jardiance Allergy (Intermediate, Uncoded 03/06/25 14:58) Rash metformin Allergy (Intermediate, Uncoded 03/06/25 14:58) Rash Medication List - Last Reconciled 03/06/25 by Bi Dennis MD [ABSORBANT HEAVY PADS As directed] albuterol sulfate 90 mcg/actuation 2 puffs PO Q4-6H PRN aspirin (Adult Low Dose Aspirin) 81 mg PO DAILY atorvastatin 40 mg PO BEDTIME 90 days budesonide-formoterol 160-4.5 mcg/actuation (Symbicort) 2 puffs inhalation BID cholecalciferol (vitamin D3) 50 mcg PO DAILY 90 days clotrimazole-betamethasone 1-0.05 % 1 appl topical BID [DISPOSABLE WIPES As directed] fluoxetine 10 mg PO DAILY fluticasone propionate 50 mcg/actuation 1 spray intranasal DAILY furosemide (Lasix) 100 mg PO DAILY glipizide ER 10 mg PO BID insulin regular hum U-500 conc 200 units in AM, 150 units at lunchtime and 150 units at dinnertime subcutaneously; lisinopril 5 mg PO DAILY 90 days lorazepam 0.5 mg PO TID PRN 30 days lubiprostone 16 mcg (2 x 8 mcg) PO BID 60 days meloxicam 15 mg PO DAILY PRN 30 days metoclopramide HCl 10 mg PO TID PRN metoprolol succinate ER 25 mg PO DAILY omeprazole 20 mg PO BID oxycodone 5 mg PO Q6-8H PRN 7 days pramipexole 1 mg PO TID 30 days primidone 50 mg PO BID 30 days sennosides (Black-Draught Lax-Senna) 8.6 mg PO BID spironolactone 100 mg PO BID 30 days tirzepatide (Mounjaro) 10 mg subcut QWEEK tramadol Take 1 to 2 tablets orally twice a day as needed for pain PRN; 25 days Tobacco use date assessed: 03/06/25 Dental Screening Dental Screen Date: 03/06/25 Did you have a dental visit in the last 12 months?: Yes Did you have a dental problem in the last 6 months where you did not have access to dental care?: No Was dental information given to patient?: Patient has dentist HPI 4 mo dm/copd/hld/constipation with Dr. Mackay HPI Details Patient comes in today for her follow up visit - she was last seen by me over a year ago in January 2025 Patient states that her lower legs and feet have been swelling up a lot lately despite her being on Furosemide 60 mg in AM and 40 mg in PM Recalls that she was advised by her welfare project manager (Dr. Virk) at [facility] last month (January 2025) that she now has congestive heart failure Reports that she had an echocardiogram done most recently in November 2024 at [facility] States that she was started on Metoprolol ER 25 mg QD by cardiology recently She continues to experience increased (chronic) pain over her lower back - she was seeing pain management for her low back pain but has not gone back recently due to concerns about her cardiac condition She is still experiencing increased pain over her lower back and states that she will need her pain medication Rx refilled today Reports (+) fatigue; she denies any headaches or dizziness lately Denies any exertional chest pains lately; states that she still has some LUND but this has not gotten any worse lately No nausea/vomiting, no abdominal pain No change in bowel habits noted She was not able to get her labs done prior to her appointment today but states that she had labs done at [facility] sometime last month She would also like to get her flu shot today [facility] Medical History (Updated 03/06/25 @ 18:03 by Bi Dennis MD) Morbid obesity with BMI of 45.0-49.9, adult Coronary artery disease Vitamin D deficiency Degenerative joint disease of right shoulder Restrictive lung disease MATILDA (obstructive sleep apnea) Asthma COPD (chronic obstructive pulmonary disease) Blood dyscrasia Superficial bruising of lower leg Pain and swelling of right lower extremity Morbid obesity with BMI of 50.0-59.9, adult Pure hypercholesterolemia Fatigue Diabetes mellitus Pedal edema Nausea and vomiting Abdominal pain Atypical chest pain On beta kelsey at home Dyspnea on effort Asthma Sleep apnea with use of continuous positive airway pressure (CPAP) HTN (hypertension) Liver cirrhosis Pars defect of lumbar spine Spondylolisthesis, lumbar region Postlaminectomy syndrome, lumbar Spondylosis of lumbar spine Rectal bleeding Fatty pancreas Chronic constipation Cirrhosis of liver without ascites Body mass index [BMI] 50.0-59.9, adult Morbid (severe) obesity due to excess calories Depression Anxiety Insomnia Obstructive sleep apnea Periodic limb movement disorder Neuropathic pain of both feet GERD (gastroesophageal reflux disease) Gastroparesis Lumbar degenerative disc disease Benign essential hypertension Dyslipidemia Diastolic dysfunction Type 2 diabetes mellitus with diabetic autonomic (poly)neuropathy Surgical History H/O colonoscopy History of surgery History of esophagogastroduodenoscopy (EGD) H/O cardiac catheterization (~12/14/17) H/O section History of laryngoscopy (~02/10/19) History of ventral hernia repair (~2008) History of appendectomy History of lumbar discectomy Family History Father Diabetes mellitus Hypertension Mother Diabetes mellitus Hypertension Uterine cancer History of heart attack Social History Housing: Apartment Are you a primary rn critical care to a significant other at home: No Do you presently have visiting nurse or other home services: Yes (Home Health Aide, VNA) Alcohol intake: never Patient Tobacco Use Status: Former Tobacco user Tobacco use type: Cigarette Years Smoked: 10 e-Cigarette/Vaping Use: Never Used Second Hand Smoke Exposure: No service: No Current occupational status: disabled Cognitive needs: No Hearing needs: No Vision needs: Yes Questionnaire PHQ-9 Over the last 2 weeks, how often have you been bothered by any of the following problems? 1. Little interest or pleasure in doing things: several days 2. Feeling down, depressed, or hopeless: several days 3. Trouble falling or staying asleep, or sleeping too much: several days 4. Feeling tired or having little energy: several days 5. Poor appetite or overeating: several days 6. Feeling bad about yourself - or that you are a failure or have let yourself or your family down: not at all 7. Trouble concentrating on things, such as reading the newspaper or watching television: not at all 8. Moving or speaking so slowly that other people could have noticed. Or the opposite - being so fidgety or restless that you have been moving around a lot more than usual: not at all 9. Thoughts that you would be better off or of hurting yourself in some way: not at all Total score: 5 Depression Screening Interpretation: Positive Depression Screening Follow-up: Existing condition and In treatment Depression Screening Done: Yes 45081 - PHQ-9 Billing: Yes Source: Developed by Drs. Tim Manning, Estephanie Newell, Lawrence Moreno and colleagues, with an educational amira from [employer]. Thrive Questionnaire Date Thrive assessed: 11/30/24 Currently or been in a relationship where the following occur: No concerns reported THRIVE Score: 0 AUDIT C Alcohol Use Questionnaire (AUDIT-C) 1. How often do you have a drink containing alcohol?: Never 3. How often do you have six or more drinks on one occasion?: Never Total Score: 0 Score Reviewed/Action Taken: Yes CEDRIC-7 AMB Questionnaire CEDRIC-7 Date CEDRIC - 7 assessed: 12/02/24 Source: Developed by Drs. Tim Manning, Estephanie Newell, Lawrence Moreno and colleagues, with an educational amira from [employer]. Review of Systems Const Denies chills, Reports fatigue (chronic), Denies fever(s) and Denies headache(s) ENT Denies dysphagia, Denies dizziness, Denies otalgia, Denies headache(s), Denies neck pain, Denies odynophagia and Denies sore throat Card Denies chest pain, Reports leg edema (on and off bilaterally), Denies palpitations and Reports dyspnea on exertion (mild) Resp Denies chest congestion, Denies cough and Reports dyspnea on exertion (mild) GI Denies abdominal pain, Denies constipation, Denies dysphagia, Denies heartburn, Denies diarrhea, Denies nausea, Denies odynophagia and Denies vomiting Denies difficulty voiding, Reports nocturia, Denies dysuria and Denies urinary urgency Musc Details: (+) recurrent bilateral leg pain, especially with prolonged walking Reports back pain (over the lower back - chronic but increased since she fell last week), Reports arthralgias (over multiple joints, including the right shoulder recently) and Denies neck pain Skin/Breast Denies rash Neuro Denies dizziness and Denies headache(s) Endo Reports fatigue (chronic) and Denies palpitations Physical exam (Primary Care) Vital Signs: Last Vital Signs Pulse 85 03/06/25 14:35 BP 136/84 03/06/25 14:35 Pulse Ox 95 03/06/25 14:35 Oxygen Delivery Method Room Air 03/06/25 14:35 BMI result Body Mass Index 49.6 Tobacco/Smoking Status: Tobacco use Status Tobacco use date assessed 03/06/25 03/06/25 14:42 Patient Tobacco Use Status Former Tobacco user 03/06/25 14:42 Tobacco use type Cigarette 03/06/25 14:42 e-Cigarette/Vaping Use Never Used 03/06/25 14:42 PHQ-9: PHQ-9 Score PHQ-9: Total score 5 03/06/25 17:22 Depression Screening Interpretation: Positive Depression Screening Follow-up: Existing condition and In treatment Thrive Assessment: Date of Thrive Assessment Date Thrive assessed 11/30/24 03/06/25 14:42 Currently or been in a relationship where the following occur: No concerns reported Const General: no acute distress and alert HENMT Ears: TM's normal bilaterally and EAC's normal Throat: Yes posterior oropharynx normal and Yes tonsils normal (no TP congestion noted) Neck Neck: Yes supple and No lymphadenopathy Thyroid: Thyroid normal Resp Auscultation: clear to auscultation bilaterally, no rales and no wheezes Cardio Rate: regular rate Rhythm: regular rhythm Heart sounds: no murmurs GI Palpation (GI): Soft to palpation, Tenderness to palpation present (GI) (mild diffusely), no guarding, not rigid and No Rebound tenderness present Auscultation: normal bowel sounds General: Yes no CVA tenderness Back/Spine/Pelvis Back: no CVA tenderness Thoracic/Lumbar Spine: lumbar spinal tenderness Skin Rashes: no rashes Extrem General: No no calf tenderness, No clubbing, No cyanosis and Yes edema (2+ bilaterally) Right upper extremity: shoulder/upper arm Details: tenderness Location: of the A-C joint; no swelling Office Procedures Flu Questionnaire Does the patient have a severe egg allergy?: No Does the patient have severe life threatening allergies?: No Does the patient have a fever or illness today?: No Has the patient ever had Guillain-Killen Syndrome?: No Has the patient ever had any past reaction to a flu shot?: No Immunizations Fluarix [id number] (PF) 45 mcg (15 mcg x 3)/0.5 mL IM syringe Performing Provider: Bi Dennis MD [facility]forming [facility]: [facility] Administered by: HAM Mon on 03/06/25 15:23 Dose Route Admin Location Dispensed Lot Number Expiration Date NDC Retail Warehouse Supervisor 0.5 mL IM Right Deltoid 0.5 mL [id number] 11/17/25 [id number] [employer] VIS Given Date VIS Provided VIS Publication Date 03/06/25 Single Vaccine 24 Eligibility Eligibility Date Funding Source Not [facility] Eligible 03/06/25 Private Coding Level of Care Code Est Pt Level 4 (33407) Diagnoses Edema of both lower extremities R60.0 Coronary artery disease involving [place] coronary artery of [place] heart without angina pectoris I25.10 Coronary Disease-Associated Artery/Lesion type: [place] artery [place] vs. transplanted heart: [place] heart Associated angina: without angina Type 2 diabetes mellitus with diabetic polyneuropathy, with long-term current use of insulin E11.42; Z79.4 Diabetes mellitus complication detail: with polyneuropathy Diabetes mellitus complication status: with neurologic complications Diabetes mellitus rodent exterminator insulin use: with rodent exterminator use Diabetes mellitus type: type 2 Pure hypercholesterolemia E78.00 Benign essential hypertension I10 Spondylolisthesis, lumbar region M43.16 Primary osteoarthritis of right shoulder M19.011 Osteoarthritis type: primary Mild intermittent asthma without complication J45.20 Asthma severity: mild Asthma persistence: intermittent Asthma complication type: uncomplicated MATILDA (obstructive sleep apnea) G47.33 Chronic constipation K59.09 Gastroparesis K31.84 Diabetic peripheral neuropathy E11.42 Vitamin D deficiency E55.9 Periodic limb movement disorder G47.61 Anxiety F41.9 Episode of recurrent major depressive disorder, unspecified depression episode severity F33.9 Depression Type: major depressive disorder Major depression recurrence: recurrent Active/Remission status: currently active Major depression episode severity: unspecified Morbid obesity with BMI of 45.0-49.9, adult E66.01; Z68.42 Additional Codes PHQ-9 - 32562 - PHQ-9 Billing: Yes ([id number]) Assessment & Plan Assessment & Plan (1) Edema of both lower extremities: Code(s): R60.0 - Localized edema Category: Medical Plan: This is most likely lymphedema Patient reports being advised by cardiology recently that she has some degree of CHF and it she does, then her edema may also be partially related to her cardiomyopathy Echocardiogram done back in 2019 showed normal LV systolic function with mild LVH; spectral Doppler indicates an impaired relaxation filling pattern suggestive of diastolic dysfunction. Cardiac valvular Dopplers are within normal limits and there is no evidence of pericardial effusion seen Repeat nuclear stress test done at [facility] at the time also came out normal She is currently on a total of 100 mg of Furosemide daily (60 mg in AM and 40 mg in PM) and states that despite this, she is still swelling up a lot Have advised patient that if she now does have CHF, then she needs to be cognizant of her daily fluid intake and restrict her fluids to some extent We will try to obtain a copy of her most recent echocardiogram, labs as well as cardiology report from [facility] for more information regarding this Have advised her in the meantime to continue on her current Rx and will send her for some updated labs [facility] for further evaluation/follow up (2) Coronary artery disease: Code(s): I25.10 - Atherosclerotic heart disease of [place] coronary artery without angina pectoris Category: Medical Qualifiers: Coronary Disease-Associated Artery/Lesion type: [place] artery [place] vs. transplanted heart: [place] heart Associated angina: without angina Qualified Code(s): I25.10 - Atherosclerotic heart disease of [place] coronary artery without angina pectoris Plan: Will try to request for copies of her recent cardiology/cardiac work ups done at [facility], including her echocardiogram, for review and documentation In the meantime, have advised patient to continue on her Aspirin 81 mg QD and Furosemide 60 mg in AM and 40 mg in PM and Metoprolol ER 25 mg QD Follow up with cardiology as scheduled (3) Diabetes mellitus: Comment: Out of control in the past. Has since been more compliant with medication with better control. BS today 171 Code(s): E11.9 - Type 2 diabetes mellitus without complications Category: Medical Qualifiers: Diabetes mellitus complication detail: with polyneuropathy Diabetes mellitus complication status: with neurologic complications Diabetes mellitus rodent exterminator insulin use: with senior care use Diabetes mellitus type: type 2 Qualified Code(s): E11.42 - Type 2 diabetes mellitus with diabetic polyneuropathy; Z79.4 - half-way (current) use of insulin Plan: Her in-office HgbA1c was at 8.2% when recently checked about 3 weeks ago (she was at 10.4% back in August 2024) - goal is at least <7.0% Reinforced diabetic diet Continue Mounjaro 10 mg SQ once a week, Glipizide ER 10 mg BID and Humulin U-500 200 units in AM, 150 units at lunch and 150 units at dinner Follow-up with [facility] Endocrinology scheduled (4) Pure hypercholesterolemia: Code(s): E78.00 - Pure hypercholesterolemia, unspecified Category: Medical Plan: Results of her labs done back in November 2024 reviewed and discussed with patient Reinforced low cholesterol diet Continue Atorvastatin 40 mg QD Will have her recheck her labs and fasting lipids in 3 months for follow up (5) Benign essential hypertension: Code(s): I10 - Essential (primary) hypertension Category: Medical Plan: Reinforced low sodium diet - goal is systolic BP of 120 mm or less Continue Lisinopril 5 mg QD, Metoprolol ER 25 mg QD and Furosemide 60 mg in AM and 40 mg in PM Patient is reminded to continue monitoring her blood pressure regularly (6) Spondylolisthesis, lumbar region: Comment: Nevro spinal cord stimulator trial was very effective to treat her pain she reports 90% of the pain relief. She reports up to 100 pain relieve when she is at rest. She reports no pain when she is in the situations when iron her pain was previously bothering her a lot. I will schedule her for implantation of spinal cord stimulator. Another consideration for the Nevro machine is this patient has obstructive sleep apnea and it is very difficult to achieve sedation for wake up during the surgery. With Nevro machine the insertion of the spinal cord stimulator not require awareness in the middle of the case. Code(s): M43.16 - Spondylolisthesis, lumbar region Category: Medical Plan: She has POSTLAMINECTOMY SYNDROME and multilevel degenerative disc disease of the lumbar spine She has reportedly responded very well to trial of SCS in the past and was originally scheduled for SCS insertion with Dr. Mckeon under local/epidural anesthesia on 07/10/2022 but procedure was postponed until patient can get her diabetes under better control Patient then decided later on that she would rather not have the procedure done due to concerns about potential failure/side effects and has just been addressing her chronic pain with Oxycodone 5 mg Q 6 hours PRN and Tramadol 50 mg TID PRN A repeat lumbar spine CT done at the ER in September 2023 revealed (+) degenerative disc disease resulting in mild central canal stenosis at L1-L2 and L2-L3 with moderate central canal stenosis at L4-L5. Additionally, there is moderate right and severe left neural foraminal narrowing at L2-L3 and L3-L4, moderate bilateral neural foraminal narrowing at L4-L5 and severe right and moderate left neural foraminal narrowing at L5-S1 She has been seeing neurosurgery in [place] over the years but has supposedly been advised that she was not a surgical candidate at the time (7) Degenerative joint disease of right shoulder: Code(s): M19.011 - Primary osteoarthritis, right shoulder Category: Medical Qualifiers: Osteoarthritis type: primary Qualified Code(s): M19.011 - Primary osteoarthritis, right shoulder Plan: Her right shoulder MRI done at the time revealed (+) high-grade, near full- thickness, partial bursal tear of the supraspinatus tendon with tendinopathies as well as osteoarthritis changes She was recommended for surgical repair by [facility] but they cannot do her surgery until her diabetes is better controlled and her HgbA1c is down to at least 8.0% or less Follow up with [facility] as scheduled (8) Asthma: Comment: Pulmonary function test in 2018 and office spirometry in February 2022 were normal. But she has had clinical picture of mild intermittent bronchial asthma. 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 Olmos) as scheduled (9) MATILDA (obstructive sleep apnea): Comment: HAS RATHER VERY SEVERE OBSTRUCTIVE SLEEP APNEA. SHE NEEDS TO BE STARTED ON CPAP THERAPY. SHE IS WELL VERSED WITH CPAP USAGE. CPAP TITRATION STUDY WAS SUCCESSFUL , AND SHE WAS STARTED ON THE CPAP, FULLFACE MASK AND PRESSURE OF 15 CM. SHE HAS BEEN USING ALMOST EVERY NIGHT AND FOR AT LEAST 4 HOURS PER NIGHT . SHE CLAIMS THAT SHE IS BENEFITING FROM THE CPAP AND IS STARTING TO SLEEP BETTER. Code(s): G47.33 - Obstructive sleep apnea (adult) (pediatric) Category: Medical Plan: (+) past history of using CPAP but she had been noncompliant so the CPAP taken away She had a split night study done on 12/11/2023 - baseline study was positive for VERY SEVERE OBSTRUCTIVE SLEEP APNEA with AHI of 79 When CPAP was applied, patient reportedly could not sleep afterwards and the study was terminated prematurely - she states that once she is awake (from her initial sleep), she just cannot go back to sleep, and this is likely related to her anxiety She was willing to go back and attempt a repeat study with CPAP titration again as long as she is started on the CPAP Tx right away Follow up with Sleep Medicine as scheduled - have advised her that she should discuss this further with Sleep Medicine (10) Chronic constipation: Comment: Continue Senna and Lubiprotone Code(s): K59.09 - Other constipation Category: Medical Plan: Reinforced increased oral fluids and dietary fiber intake Continue Amitiza 16 mcg BID and Senna 8.6 mg BID PRN - states that her constipation has been better controlled since she was started on Amitiza by Dr. Redding a couple of years ago Follow up with GI as scheduled (11) Gastroparesis: Code(s): K31.84 - Gastroparesis Category: Medical Plan: Continue Metoclopramide 10 mg TID PRN Follow up with GI as scheduled (12) Diabetic peripheral neuropathy: Comment: 10/25/22 NCV/EMG LE Axonal and demyelinating sensory and motor peripheral neuropathy with mild progression compared to the study done in 2019. EMG of the left L4-S1 innervated muscles is consistent with neuropathic changes. MRI L spine 2018. Code(s): E11.42 - Type 2 diabetes mellitus with diabetic polyneuropathy Category: Medical Plan: Continue Primidone 50 mg BID Follow up with neurology as scheduled (13) Vitamin D deficiency: Code(s): E55.9 - Vitamin D deficiency, unspecified Category: Medical Plan: Continue Vitamin D3 2000 units QD (14) Periodic limb movement disorder: Code(s): G47.61 - Periodic limb movement disorder Category: Medical Plan: Continue Pramipexole 1 mg TID (15) Anxiety: Code(s): F41.9 - Anxiety disorder, unspecified Category: Medical Plan: Continue Lorazepam 0.5 mg TID PRN and Fluoxetine 10 mg QD (16) Depression: Code(s): F32.9 - Major depressive disorder, single episode, unspecified Category: Medical Qualifiers: Depression Type: major depressive disorder Major depression recurrence: recurrent Active/Remission status: currently active Major depression episode severity: unspecified Qualified Code(s): F33.9 - Major depressive disorder, recurrent, unspecified Plan: Continue Fluoxetine 10 mg QD Follow up with psychiatry as scheduled (17) Morbid obesity with BMI of 45.0-49.9, adult: Code(s): E66.01 - Morbid (severe) obesity due to excess calories; Z68.42 - Body mass index [BMI] 45.0-49.9, adult Category: Medical Plan: Reinforced diet; exercise and weight loss are not realistic given patient's multiple physical issues and comorbidities and poor activity tolerance Plan Follow up in 3 months Orders: Orders Comprehensive [place]infred. Panel Fast Today E78.00 - Pure hypercholesterolemia, unspecified NT Pro B Type Natriuretic Pept Today R06.09 - Other forms of dyspnea Lipid Panel Today E78.00 - Pure hypercholesterolemia, unspecified Hemoglobin A1c Today E11.9 - Type 2 diabetes mellitus without complications TSH reflex Free T4 Today E78.00 - Pure hypercholesterolemia, unspecified UA CC w/rflx Micro + Cult Today R30.0 - Dysuria Influenza [id number] Immunization Today Z23 - Encounter for immunization Hemoglobin A1c 3 Months E11.9 - Type 2 diabetes mellitus without complications Microalbumin, Random (w Creat) 3 Months E11.9 - Type 2 diabetes mellitus without complications TSH reflex Free T4 3 Months E78.00 - Pure hypercholesterolemia, unspecified Complete Blood Count Auto Diff Today D64.9 - Anemia, unspecified Microalbumin, Random (w Creat) Today E11.9 - Type 2 diabetes mellitus without complications Vitamin B12 and Folate Today E53.8 - Deficiency of other specified B group vitamins Vitamin D 25-OH Total Today E55.9 - Vitamin D deficiency, unspecified Comprehensive Winfred. Panel Fast 3 Months E78.00 - Pure hypercholesterolemia, unspecified Lipid Panel 3 Months E78.00 - Pure hypercholesterolemia, unspecified UA CC w/rflx Micro + Cult 3 Months R30.0 - Dysuria Complete Blood Count Auto Diff 3 Months D64.9 - Anemia, unspecified Medications: Refilled oxycodone 5 mg PO Q6-8H PRN 28 tabs 0RF severe pain 7 days
--- OUTSIDE RECORDS SUMMARY | 2025-03-06 17:05 | XMS_ITS | Clinical Summary ---
Author Organization [facility] Address [address] [place] [address] Care Team Providers Care Fisher Purse Seine Name Role Phone Bi Dennis Primary Care Provider [phone] Allergies Active Allergy Reactions Criticality Noted Date [...] 75+ series) 2044 Procedures * Due to [place] state law, this organization might not be sharing negative HIV tests. Procedure Name Priority Date/Time Associated Diagnosis Comments AMB EXTERNAL CT CHEST, OUTSI DE RESULT Routine 01/09/2019 from Last 3 Months or Most Recently Relevant to Health Maintenance Results * Due to [place] [employer] law, this organization might not be sharing negative HIV tests. * CT Chest, Outside Result (01/09/2019) Anatomical Region Laterality Modality Other us In System Do Not Edit Provider-Not AMB EXTERNAL RESULT PROCEDURES Final Result from Last 3 Months or Most Recently Relevant to Health Maintenance Insurance [facility] Care Teams Fisher Purse Seine Relationship Specialty Start Date End Date Bi Dennis [address] [place] [address] dr Lavell Monte, [place] [address] PCP - General Internal Medicine 01/05/20
--- OUTSIDE RECORDS SUMMARY | 2025-03-06 17:05 | XMS_ITS | Clinical Summary ---
Author Organization [facility] Address [address] [place] [address] Care Team Providers Care Software Project Lead Name Role Phone Bi Dennis MD Primary Care Provider [phone] Immunizations Immunization Administration Dates Next Due COVID-19, [...] Patient Date of Phone Billing Address Personal/Family [address] [place] [address] [address] [place] [address] MEDICAID MEDICARE PART B Care Teams Software Project Lead Relationship Specialty Start Date End Date Bi Dennis MD [address] [place], [place] [phone] PCP - General Internal Medicine 11/03/19
--- OUTSIDE RECORDS SUMMARY | 2025-03-06 17:05 | XMS_ITS | Clinical Summary ---
Author Organization [facility] it[facility] Address [address] [place] [address] Care Team Providers Care Inspector Machine Parts Name Role Phone Bi Dennis MD Primary [...] age to complete this topic Care Teams Inspector Machine Parts Relationship Specialty Start Date End Date Bi Dennis MD [address] [place] [address] [address] [place], [place] PCP - General Internal Medicine 12/15/16
== END 2025-03-06 15:27 | disposition home or self-care (01) ==
LOC: HO.HMCH 14:34
PROVIDERS: PCP Internal Medicine; Visit Provider Internal Medicine
DX: R60.0 Localized edema (principal); I25.10 Atherosclerotic heart disease of native coronary artery without angina pectoris; E11.42 Type 2 diabetes mellitus with diabetic polyneuropathy; Z79.4 Long term (current) use of insulin; E78.00 Pure hypercholesterolemia, unspecified; I10 Essential (primary) hypertension; M43.16 Spondylolisthesis, lumbar region; M19.011 Primary osteoarthritis, right shoulder; J45.20 Mild intermittent asthma, uncomplicated; G47.33 Obstructive sleep apnea (adult) (pediatric); E66.01 Morbid (severe) obesity due to excess calories; Z68.42 Body mass index [BMI] 45.0-49.9, adult; K59.09 Other constipation; K31.84 Gastroparesis; E55.9 Vitamin D deficiency, unspecified; G47.61 Periodic limb movement disorder; F41.9 Anxiety disorder, unspecified; F33.9 Major depressive disorder, recurrent, unspecified; Z23 Encounter for immunization

== ENCOUNTER → 2025-03-06 14:33 | Outpatient (BNVA) | payer OTHER, SELFPAY | PROVIDERS: PCP Internal Medicine; Visit Provider Internal Medicine | DX: I10 Essential (primary) hypertension (principal); M54.50 Low back pain, unspecified; R06.00 Dyspnea, unspecified; R60.0 Localized edema; I25.10 Atherosclerotic heart disease of native coronary artery without angina pectoris; E11.42 Type 2 diabetes mellitus with diabetic polyneuropathy; E78.00 Pure hypercholesterolemia, unspecified; M43.16 Spondylolisthesis, lumbar region; M19.011 Primary osteoarthritis, right shoulder; J45.20 Mild intermittent asthma, uncomplicated; G47.33 Obstructive sleep apnea (adult) (pediatric); K59.09 Other constipation; K31.84 Gastroparesis; E55.9 Vitamin D deficiency, unspecified; G47.61 Periodic limb movement disorder; F41.9 Anxiety disorder, unspecified; F33.9 Major depressive disorder, recurrent, unspecified; E66.01 Morbid (severe) obesity due to excess calories; Z79.4 Long term (current) use of insulin; Z23 Encounter for immunization; Z68.42 Body mass index [BMI] 45.0-49.9, adult | CPT/HCPCS: 90471; 90656; 96127; 99212 ==

== ENCOUNTER 2025-03-11 09:28 | Outpatient (REF) | payer OTHER, SELFPAY ==
[2025-03-11 09:42] LABS: MANUAL DIFF FLAG NO
[2025-03-11 09:58] LABS: Hematocrit 40.1 % (37.0-47.0); Hemoglobin 13.0 g/dl (12.0-16.0); Imm Gran Abs Auto 0.06 X10*3/uL (0.00-0.03); Imm Gran Pct Auto 0.6 % (0.0-0.4); Lymphocytes Absolute Auto 2.9 X10*3/uL (1.2-4.9); Mean Corpuscular HGB Conc 32.4 g/dl (31.0-35.0); Mean Corpuscular Hemoglobin 28.3 pg (27.0-33.0); Mean Corpuscular Volume 87.4 fL (80.0-98.0); NRBC Abs Auto 0.000 X10*3/uL (0.0-0.012); NRBC Pct Auto 0.0 /100WBC (0.0-0.2); Platelet Count 244 X10*3/uL (160-400); Red Blood Count 4.59 X10*6/uL (4.20-5.50); White Blood Count 9.6 X10*3/uL (4.8-10.8)
[2025-03-11 10:27] LABS: NT Pro B Type Natriuretic Pept 41.5 pg/mL (<300)
[2025-03-11 10:31] LABS: Alanine Aminotransferase 38 U/L (0-31); Albumin Level 4.1 g/dL (3.5-5.0); Alkaline Phosphatase 99 U/L (39-117); Anion Gap 12 (12-20); Aspartate Amino Transferase 27 U/L (5-31); Blood Urea Nitrogen 27 mg/dL (9-16); Calcium 10.2 mg/dL (8.4-10.2); Carbon Dioxide 25 mmol/L (22-29); Chloride 102 mmol/L (96-108); Cholesterol 100 mg/dL (<200); Estimated Glomerular Filt Rate 51; HDL Cholesterol 31 mg/dL (>40); Potassium 4.5 mmol/L (3.3-5.1); Sodium 134 mmol/L (135-145); Total Protein 7.5 g/dL (6.5-8.0); Triglycerides 104 mg/dL (<150)
--- OUTSIDE RECORDS SUMMARY | 2025-03-11 10:51 | XMS_ITS | Clinical Summary ---
Author Organization [facility] Address [address] [place] [address] Care Team Providers Care Payroll And Benefits Assistant Name Role Phone Bi Dennis Primary Care Provider [phone] Allergies Active Allergy Reactions Criticality Noted Date [...] 75+ series) 2044 Procedures * Due to [place] state law, this organization might not be sharing negative HIV tests. Procedure Name Priority Date/Time Associated Diagnosis Comments AMB EXTERNAL CT CHEST, OUTSI DE RESULT Routine 01/09/2019 from Last 3 Months or Most Recently Relevant to Health Maintenance Results * Due to [place] [employer] law, this organization might not be sharing negative HIV tests. * CT Chest, Outside Result (01/09/2019) Anatomical Region Laterality Modality Other us In System Do Not Edit Provider-Not AMB EXTERNAL RESULT PROCEDURES Final Result from Last 3 Months or Most Recently Relevant to Health Maintenance Insurance [facility] Care Teams Payroll And Benefits Assistant Relationship Specialty Start Date End Date Bi Dennis [address] [place] [address] dr Lavell Monte, [place] [address] PCP - General Internal Medicine 01/05/20
--- OUTSIDE RECORDS SUMMARY | 2025-03-11 10:51 | XMS_ITS | Clinical Summary ---
Author Organization [facility] Address [address] [place] [address] Care Team Providers Care Dock Operations Supervisor Name Role Phone Bi Dennis MD Primary Care Provider [phone] Immunizations Immunization Administration Dates Next Due COVID-19, [...] Patient Date of Phone Billing Address Personal/Family [address] [place] [address] [address] [place] [address] MEDICAID MEDICARE PART B Care Teams Dock Operations Supervisor Relationship Specialty Start Date End Date Bi Dennis MD [address] [place], [place] [phone] PCP - General Internal Medicine 11/03/19
--- OUTSIDE RECORDS SUMMARY | 2025-03-11 10:51 | XMS_ITS | Clinical Summary ---
Author Organization [facility] ity Address [address] [place] [address] Care Team Providers Care Systems Requirements Planner Name Role Phone Bi Dennis MD Primary [...] age to complete this topic Care Teams Systems Requirements Planner Relationship Specialty Start Date End Date Bi Dennis MD [address] [place] [address] [address] [place], [place] PCP - General Internal Medicine 12/15/16
[2025-03-11 10:54] LABS: Folate 6.7 ng/mL (> or = 4.0); Vitamin B12 368 pg/mL (200-900)
[2025-03-11 11:27] LABS: Free T4 (Free Thyroxine) 0.88 ng/dL (0.71-1.85)
== END 2025-03-11 09:29 | disposition home or self-care (01) ==
LOC: HO.LAB 09:28
PROVIDERS: PCP Internal Medicine; Visit Provider Internal Medicine
DX: E11.9 Type 2 diabetes mellitus without complications (principal); E53.8 Deficiency of other specified B group vitamins; D64.9 Anemia, unspecified; E78.00 Pure hypercholesterolemia, unspecified; E55.9 Vitamin D deficiency, unspecified; R06.09 Other forms of dyspnea
CPT/HCPCS: 36415; 80053; 80061; 82306; 82607; 82746; 83036; 83880; 84439; 84443; 85025

== ENCOUNTER 2025-03-14 08:27 | Emergency (ER) | payer OTHER, SELFPAY ==
--- NOTE | ~2025-03-14 | XR_ITS ---
CLINICAL HISTORY: SOB 2 view chest x-ray. Comparison: None Findings: The lungs are adequately expanded. No focal consolidation. No effusion or pneumothorax. Cardiac and mediastinal contours are within normal limits. No acute osseous abnormality Impression: No acute process. This document has been electronically signed by: Leland Valentine MD on 03/14/2025 10:52:16
--- NOTE | ~2025-03-14 | XR_ITS ---
CLINICAL HISTORY: pain 4 view right shoulder Comparison: None provided Findings: Bones intact. No dislocations. Mild degenerative changes. No erosions. No radiopaque foreign body. IMPRESSION: No fracture or malalignment. Mild degenerative changes. This document has been electronically signed by: Leland Valentine MD on 03/14/2025 10:52:06
[2025-03-14 08:29] VITALS: BP 153/76; PULSE 82; RESP 20; TEMP 36.2; O2SAT 96; BMI 52.7
--- NOTE | 2025-03-14 08:44 | ED_ITS ---
HPI - General Adult General Chief complaint: Extremity Problem Stated complaint: r shoulder pain Time Seen by Provider: 03/14/25 08:42 Source: patient Mode of arrival: ambulatory Limitations: no limitations History of Present Illness ED Provider: Racheal Martins PA-C HPI narrative: Patient is a 54 year old assigned female at with a history of DM, diastolic dysfunction, GERD, LDDD, MATILDA, depression, anxiety, asthma, COPD, right rotator cuff dysfunction with surgery recommended by [facility] several years ago, and lower leg edema presenting to the emergency department today with acute on chronic right shoulder pain and acute on chronic lower leg swelling. Patient states that over the last 4 days she has had right shoulder pain and lower leg swelling that is worse than her usual baseline. Patient denies any other complaints at this time. Related Data Home Medications ?Medication ?Instructions ?Recorded ?Confirmed glipizide 10 mg tablet, extended 10 mg PO BID 01/16/22 03/06/25 release 24 hr fluoxetine 10 mg capsule 10 mg PO DAILY 09/26/2302/18 insulin regular hum U-500 conc 500 See Rx Instructions subcut .COMPLEX 09/26/23 03/06/25 unit/mL(3 mL) subcut pen tirzepatide 5 mg/0.5 mL 10 mg subcut QWEEK 08/14/24 03/06/25 subcutaneous pen injector (Mounjaro) furosemide 20 mg tablet (Lasix) 100 mg PO DAILY 03/06/25 aspirin 81 mg tablet,delayed 81 mg PO DAILY 03/03/25 1 release (Adult Low Dose Aspirin) metoprolol succinate 25 mg 25 mg PO DAILY 03/03/25 tablet,extended release 24 hr Previous Rx's ?Medication ?Instructions ?Recorded cholecalciferol (vitamin D3) 50 50 mcg PO DAILY 90 day s #90 caps 09/26/23 mcg (2,000 unit) capsule budesonide-formoterol HFA 160 2 puff inhalation BID #1 0.2 grams 01/10/24 mcg-4.5 mcg/actuation aerosol inhaler (Symbicort) ABSORBANT HEAVY PADS #3 ea 03/21/24 DISPOSABLE WIPES #3 ea 03/21/24 lubiprostone 8 mcg capsule 16 mcg (2 x 8 mcg) PO BID 6 0 days 10/23/24 #240 caps atorvastatin 40 mg tablet 40 mg PO BEDTIME 90 days #90 tabs 11/19/24 sennosides 8.6 mg tablet 8.6 mg PO BID #60 tabs 12/02 (Black-Draught Lax-Senna) clotrimazole-betamethasone 1 1 appl topical BID #45 gr ams 01/01/25 %-0.05 % topical cream metoclopramide HCl 10 mg tablet 10 mg PO TID PRN for 0 02/12/25 nausea/vomiting #90 tabs omeprazole 20 mg capsule,delayed 20 mg PO BID #50 caps 02/12/25 release fluticasone propionate 50 1 spray intranasal DAILY #16 grams 02/13/25 mcg/actuation nasal spray,suspension lorazepam 0.5 mg tablet 0.5 mg PO TID PRN anxiety 30 days 03/03/25 #90 tabs primidone 50 mg tablet 50 mg PO BID 30 days #60 tab s 03/03/25 oxycodone 5 mg tablet 5 mg PO Q6-8H PRN severe mckenzie n 7 03/06/25 days #28 tabs albuterol sulfate 90 mcg/actuation 2 puff PO Q4-6H PRN for wheezing 03/12/25 aerosol inhaler #8.5 grams lisinopril 5 mg tablet 5 mg PO DAILY 90 days #90 ta bs 03/12/25 meloxicam 15 mg tablet 15 mg PO DAILY PRN pain 30 d ays 03/12/25 #30 tabs pramipexole 1 mg tablet 1 mg PO TID 30 days #90 tabs 03/12/25 spironolactone 100 mg tablet 100 mg PO BID 30 days #60 tabs 03/12/25 tramadol 50 mg tablet See Rx Instructions .Route 1 .COMPLEX PRN pain 25 days #100 tabs Allergies Allergy/AdvReac Type Severity Reaction Status Date / Time adhesive tape Allergy Intermediate Rash Verified 03/14/25 08:32 empagliflozin (From Allergy Intermediate Rash Verified 03/14/25 08:32 JARDIANCE) sitagliptin (From JANUVIA) AdvReac Severe Rash,nausea, Verified 03/14/25 08:32 hypoglycemia metformin (METFORMIN) AdvReac Intermediate Rash, GI Verified 03/14/25 08:32 upset jardiance Allergy Intermediate Rash Uncoded 03/14/25 08:32 metformin Allergy Intermediate Rash Uncoded 03/14/25 08:32 Review of Systems 2 Constitutional: Constitutional: Reports as per HPI Eyes: Eyes: Reports as per HPI ENT: Reports as per HPI Cardiovascular: Cardiovascular: Reports as per HPI Respiratory: Respiratory: Reports as per HPI Gastrointestinal: Gastrointestinal: Reports as per HPI Genitourinary: Genitourinary: Reports as per HPI Musculoskeletal: Musculoskeletal: Reports as per HPI Integumentary/Breasts: Skin/Breast: Reports as per HPI Neurologic: Reports as per HPI Psychiatric: Psychiatric: Reports as per HPI Endocrine: Endocrine: Reports as per HPI Hematologic/Lymphatic: Hematologic/Lymphatic: Reports as per HPI Allergic/Immunologic: Allergic/Immunologic: Reports as per HPI [facility] Past Medical History Attestation statement: The following information was validated with the patient. Source: old records reviewed and nursing notes reviewed Medical History Morbid obesity with BMI of 45.0-49.9, adult Coronary artery disease Vitamin D deficiency Degenerative joint disease of right shoulder Restrictive lung disease MATILDA (obstructive sleep apnea) Asthma COPD (chronic obstructive pulmonary disease) Blood dyscrasia Superficial bruising of lower leg Pain and swelling of right lower extremity Morbid obesity with BMI of 50.0-59.9, adult Pure hypercholesterolemia Fatigue Diabetes mellitus Pedal edema Nausea and vomiting Abdominal pain Atypical chest pain On beta kelsey at home Dyspnea on effort Asthma Sleep apnea with use of continuous positive airway pressure (CPAP) HTN (hypertension) Liver cirrhosis Pars defect of lumbar spine Spondylolisthesis, lumbar region Postlaminectomy syndrome, lumbar Spondylosis of lumbar spine Rectal bleeding Fatty pancreas Chronic constipation Cirrhosis of liver without ascites Body mass index [BMI] 50.0-59.9, adult Morbid (severe) obesity due to excess calories Depression Anxiety Insomnia Obstructive sleep apnea Periodic limb movement disorder Neuropathic pain of both feet GERD (gastroesophageal reflux disease) Gastroparesis Lumbar degenerative disc disease Benign essential hypertension Dyslipidemia Diastolic dysfunction Type 2 diabetes mellitus with diabetic autonomic (poly)neuropathy Surgical History H/O colonoscopy History of surgery History of esophagogastroduodenoscopy (EGD) H/O cardiac catheterization (~12/14/17) H/O section History of laryngoscopy (~02/10/19) History of ventral hernia repair (~2008) History of appendectomy History of lumbar discectomy Family History Family History Father Diabetes mellitus Hypertension Mother Diabetes mellitus Hypertension Uterine cancer History of heart attack Social History Social History Housing: Apartment Are you a primary wound care nurse to a significant other at home: No Do you presently have visiting nurse or other home services: Yes (Home Health Aide, VNA) Alcohol intake: never Patient Tobacco Use Status: Former Tobacco user Tobacco use type: Cigarette Years Smoked: 10 e-Cigarette/Vaping Use: Never Used Second Hand Smoke Exposure: No Advance Directives Date on File: 02/14/24 service: No Current occupational status: disabled Cognitive needs: No Hearing needs: No Vision needs: Yes Physical Exam ED Vital Signs: Vital Signs - 24 hr 03/14/25 08:29 03/14/25 10:16 Temperature 97.1 F 97.8 F Pulse Rate 82 83 Respiratory Rate 20 18 Blood Pressure 153/76 H 110/57 L Pulse Oximetry 96 95 Oxygen Delivery Method Room Air Room Air BMI result Body Mass Index 52.7 Const General: cooperative, no acute distress, alert and awake Nutritional Appearance: well nourished Orientation/consciousness: patient oriented x3 HENMT Head: Yes normal to inspection and Yes atraumatic Ears: hearing grossly normal bilaterally and external ears normal General nose exam: Normal external nose present, no nasal discharge noted and no epistaxis Face and sinus: Yes normal facial exam, No abrasion and No laceration Mouth: Normal oral and palatal mucosa present, no drooling and no muffled voice Eyes General: appearance normal, both eyes and all related structures Periorbital: periorbital findings normal Eyelids: Yes eyelids normal Conjunctivae: conjunctivae normal Pupils: Equal, round and reactive pupils present EOM: EOMs intact bilaterally Neck Neck: Yes normal visual inspection and Yes full ROM Resp Effort & Inspection: normal respiratory effort and able to speak in complete sentences Neuro General: patient oriented x3, moves all extremities and CN's II-XI intact bilaterally Cranial nerves: Yes Equal, round and reactive pupils present Cognition (Neuro): normal cognition Extrem Other: bilateral lower leg edema - minimal pain with right shoulder ROM General: Yes full ROM and Yes capillary refill normal Psych Appearance: grossly normal Mental Status: mental status grossly normal Affect: normal affect Attitude: cooperative Thought process: Normal thought process present Thought content: Normal thought content present Insight: Good insight present (Psych) Medications Administered Discontinued Medications Generic Name Dose Route Start Last Admin Trade Name Romy PRN Reason Stop Dose Admin Ketorolac Tromethamine 15 mg 03/14/25 09:05 03/14/25 09:55 Ketorolac Tromethamine 15 Mg/Ml Vial IVPUSH 03/14/25 09:06 15 mg ONCE ONE Administration Medical Decision Making Medical Decision Making [facility] Narrative: Patient is a 54 year old assigned female at with a history of DM, diastolic dysfunction, GERD, LDDD, MATILDA, depression, anxiety, asthma, COPD, right rotator cuff dysfunction with surgery recommended by [facility] several years ago, and lower leg edema presenting to the emergency department today with acute on chronic right shoulder pain and acute on chronic lower leg swelling. Patient's physical exam was as noted in the physical exam portion of this note and consistent with chronic lower leg edema and right rotator cuff dysfunction. Patient's blood work was unremarkable. Patient's EKG was unremarkable. Patient's chest and right shoulder x-rays showed no acute process. I explained my physical exam findings as well as all test results to the patient. I answered all questions asked by the patient. I stressed the importance of the patient taking her medication as directed (either prescribed or as the over the counter packaging recommends). I stressed the importance of the patient following up with her primary care provider and the orthopedic team. I stressed the importance of the patient returning to the emergency department immediately if her symptoms were to worsen or if she were to develop any dizziness, shortness of breath, difficulty breathing, chest pain, blurry vision, loss of vision, nausea, vomiting, abdominal pain, fever, chills, back pain, or any other complaints. Patient verbalized agreement and understanding with this treatment plan and discharge. Differential Diagnosis Differential Diagnoses: The differential diagnosis associated with the presentation includes Right shoulder pain Right shoulder sprain Right rotator cuff dysfunction Chronic bilateral lower leg edema Admission/Observation Consideration of admission/observation: Escalation of care including admission/observation considered Patient would have been admitted to the hospital had her work up had any findings where hospital admission was appropriate and her clinical presentation warranted hospital admission. Lab Data [facility] Lab Attestation statement: I reviewed the patient's lab results. My interpretation of these results are in the MDM Rationale portion of this note. 03/14/25 09:26 03/14/25 09:26 Labs: Lab Results 03/14/25 Range/Units 09:26 WBC 10.7 (4.8-10.8) X10*3/uL RBC 4.37 (4.20-5.50) X10*6/uL Hgb 12.4 (12.0-16.0) g/dl Hct 38.2 (37.0-47.0) % MCV 87.4 (80.0-98.0) fL MCH 28.4 (27.0-33.0) pg MCHC 32.5 (31.0-35.0) g/dl RDW 13.3 (11.0-16.0) % Plt Count 249 (160-400) X10*3/uL MPV 11.0 (9.4-12.3) fL Immature Gran % (Auto) 0.7 H (0.0-0.4) % Neut % (Auto) 60.4 (45-73) % Lymph % (Auto) 25.0 (20-40) % [place] % (Auto) 8.0 (2-11) % Eos % (Auto) 5.3 H (0-4) % Baso % (Auto) 0.6 (0-2) % Lymph # (Auto) 2.7 (1.2-4.9) X10*3/uL [place] # (Auto) 0.9 (0.1-1.2) X10*3/uL Eos # (Auto) 0.6 H (0.0-0.4) X10*3/uL Baso # (Auto) 0.1 (0.0-0.2) X10*3/uL Abs Immat Gran (auto) 0.07 H (0.00-0.03) X10*3/uL Absolute Neuts (auto) 6.5 (2.0-8.3) x10*3/uL Absolute Nucleated RBC 0.000 (0.0-0.012) X10*3/uL Nucleated RBC % (auto) 0.0 (0.0-0.2) /100WBC Sodium 137 (135-145) mmol/L Potassium 4.6 (3.3-5.1) mmol/L Chloride 102 (96-108) mmol/L Carbon Dioxide 26 (22-29) mmol/L Anion Gap 14 (12-20) BUN 31 H (9-16) mg/dL Creatinine 1.31 (0.5-1.4) mg/dL Estim Creat Clear Calc 65.4 Estimated GFR 42 Random Glucose 204 H (60-115) mg/dL Calcium 9.7 (8.4-10.2) mg/dL Magnesium 1.7 (1.6-2.6) mg/dL Total Bilirubin 0.4 (0.0-1.0) mg/dL AST 28 (5-31) U/L ALT 31 (0-31) U/L Alkaline Phosphatase 107 (39-117) U/L Troponin I High Sens < 2.7 (<3.5-17.0) ng/L NT-Pro-B Natriuret Pep 37.6 (<300) pg/mL Total Protein 7.4 (6.5-8.0) g/dL Albumin 3.9 (3.5-5.0) g/dL Independent Interpretation I performed an independent interpretation of an: EKG and Plain X-Ray Interpretation: My interpretation is in agreement with the radiologist's impression of these imaging studies. L Reason for Exam: SOB CLINICAL HISTORY: SOB 2 view chest x-ray. Comparison: None Findings: The lungs are adequately expanded. No focal consolidation. No effusion or pneumothorax. Cardiac and mediastinal contours are within normal limits. No acute osseous abnormality Impression: No acute process. This document has been electronically signed by: Leland Valentine MD on 03/14/2025 10:52:16 Dictated By: Leland Valentine MD Signed By: Electronically signed by Leland Valentine MD 03/14/25 1053 Reason for Exam: pain CLINICAL HISTORY: pain 4 view right shoulder Comparison: None provided Findings: Bones intact. No dislocations. Mild degenerative changes. No erosions. No radiopaque foreign body. IMPRESSION: No fracture or malalignment. Mild degenerative changes. This document has been electronically signed by: Leland Valentine MD on 03/14/2025 10:52:06 Dictated By: Leland Valentine MD Signed By: Electronically signed by Leland Valentine MD 03/14/25 1052 I independently interpreted this EKG and am in agreement with the below findings: Vent. Rate: 82 BPM Atrial Rate: 82 BPM P-R Int: 172 ms QRS Dur: 92 ms QT Int: 380 ms P-R-T Axes: 26 15 52 degrees QTcB Int: 443 ms Normal sinus rhythm Normal ECG When compared with ECG of 10-Nov-2022 23:28, No significant change was found DD/ 0920 Radiology Impression Discussion of test interpretation with radiology: I have reviewed the radiologist's reading. Discharge Plan Discharge Clinical Impression: Bilateral lower extremity edema, Injury of right rotator cuff Patient Disposition: Home, Self-Care Instructions: Rotator Cuff Injury (ED), Leg Edema (ED), Rotator Cuff Injury Exercises (DC) Additional Instructions: Your work up today (lab work, imaging, EKG) was reassuring there is no EMERGENT cause for your symptoms. You continue to have issues with your known right rotator cuff injury - you MUST follow up with the orthopedic team about this. Your heart and lungs looked OK today - your lower leg swelling may not be from your heart issues but rather from dependent swelling (continue to elevate them when you are stationary) and continue taking your cardiac medications. IF you are prescribed home medications and/or you are taking over the counter medications at home - it is very important you continue to do so as prescribed / directed unless told otherwise. Follow up with your primary care provider. Return to the emergency department immediately if your symptoms worsen or if you develop any numbness, tingling, dizziness, shortness of breath, difficulty breathing, chest pain, blurry vision, loss of vision, nausea, vomiting, abdominal pain, fever, chills, back pain, or any other complaints. Please see the information below about our Patient Portal. If you are not yet enrolled in the [facility] Patient Portal, you will receive an enrollment email invitation following your visit to any [facility] setting. You may also self-enroll in the Patient Portal by visiting our website: [email or web address] The following information is required to access the Patient Portal: - Your [facility] Medical Record Number - Your personal home email address (must match what is in your electronic medical record, Registration staff can assist with this) - Name - Date of Capabilities of the Patient Portal: - Message some providers - View upcoming appointments - Access your health summary, medical history, and visit history - View current conditions and allergies - View procedure and lab results - View your medications, including guidelines, side effects, and precautions - Complete pre-appointment questionnaires requested by your provider - Ready summary reports of your office visits and procedures To access the Patient Portal Mobile [employer], follow these directions: - Search [employer] in the [employer] Store or [employer] Store - Download the [employer] - Search for [facility] - Enter your login/password Prescriptions: No Action budesonide-formoterol [Symbicort] 160-4.5 mcg/actuation HFA aerosol inhaler 2 puff inhalation BID Qty: 10.2 3RF (DME) ABSORBANT HEAVY PADS See Rx Instructions .Route .MEDSUPPLY Qty: 3 12RF Rx Instructions: As directed (DME) DISPOSABLE WIPES See Rx Instructions .Route .MEDSUPPLY Qty: 3 12RF Rx Instructions: As directed lubiprostone 8 mcg capsule 16 mcg PO BID 60 Days Qty: 240 2RF atorvastatin 40 mg tablet 40 mg PO BEDTIME 90 Days Qty: 90 1RF clotrimazole-betamethasone 1-0.05 % cream 1 appl topical BID Qty: 45 2RF metoclopramide HCl 10 mg tablet 10 mg PO TID PRN (Reason: for nausea/vomiting) Qty: 90 2RF omeprazole 20 mg capsule,delayed release(DR/EC) 20 mg PO BID Qty: 50 5RF fluticasone propionate 50 mcg/actuation spray,suspension 1 spray intranasal DAILY Qty: 16 3RF lorazepam 0.5 mg tablet 0.5 mg PO TID PRN (Reason: anxiety) 30 Days Qty: 90 4RF albuterol sulfate 90 mcg/actuation HFA aerosol inhaler 2 puff PO Q4-6H PRN (Reason: for wheezing) Qty: 8.5 2RF meloxicam 15 mg tablet 15 mg PO DAILY PRN (Reason: pain) 30 Days Qty: 30 1RF Rx Instructions: Take with food lisinopril 5 mg tablet 5 mg PO DAILY 90 Days Qty: 90 1RF spironolactone 100 mg tablet 100 mg PO BID 30 Days Qty: 60 1RF pramipexole 1 mg tablet 1 mg PO TID 30 Days Qty: 90 1RF tramadol 50 mg tablet See Rx Instructions .ROUTE .COMPLEX PRN (Reason: pain) 25 Days Qty: 100 1RF Rx Instructions: Take 1 to 2 tablets orally twice a day as needed for pain PRN; Mounjaro 5 mg/0.5 mL pen injector 10 mg subcut QWEEK insulin regular hum U-500 conc 500 unit/mL (3 mL) insulin pen See Rx Instructions subcut .COMPLEX Rx Instructions: 200 units in AM, 150 units at lunchtime and 150 units at dinnertime subcutaneously; glipizide 10 mg tablet extended release 24hr 10 mg PO BID fluoxetine 10 mg capsule 10 mg PO DAILY cholecalciferol (vitamin D3) 50 mcg (2,000 unit) capsule 50 mcg PO DAILY 90 Days Qty: 90 3RF aspirin [Adult Low Dose Aspirin] 81 mg tablet,delayed release (DR/EC) 81 mg PO DAILY metoprolol succinate 25 mg tablet extended release 24 hr 25 mg PO DAILY primidone 50 mg tablet 50 mg PO BID 30 Days Qty: 60 8RF furosemide [Lasix] 20 mg tablet 100 mg PO DAILY Rx Instructions: 3 tabs in am and 2 tabs in pm sennosides [Black-Draught Lax-Senna] 8.6 mg tablet 8.6 mg PO BID Qty: 60 3RF oxycodone 5 mg tablet 5 mg PO Q6-8H PRN (Reason: severe pain) 7 Days Qty: 28 0RF Referrals: [facility] Orthopedic Surgeons [Provider Group] Referral Note: Call to establish and follow up with the orthopedic team for your ongoing right rotator cuff issues. Bi Dennis MD [Primary Care Provider, Internal Medicine] Discharge Date/Time: 03/14/25 11:18 Print Language: Finnish
--- NOTE | 2025-03-14 09:05 | ECG_ITS ---
Test Reason : chest pain Blood Pressure : */* mmHG Vent. Rate : 82 BPM Atrial Rate : 82 BPM P-R Int : 172 ms QRS Dur : 92 ms QT Int : 380 ms P-R-T Axes : 26 15 52 degrees QTcB Int : 443 ms Normal sinus rhythm Normal ECG When compared with ECG of 10-Nov-2022 23:28, No significant change was found Referred By: Racheal Martins Electronically Signed By: ANKUR THACKER MD
[2025-03-14 09:31] LABS: MANUAL DIFF FLAG NO
[2025-03-14 09:32] LABS: Hematocrit 38.2 % (37.0-47.0); Hemoglobin 12.4 g/dl (12.0-16.0); Imm Gran Abs Auto 0.07 X10*3/uL (0.00-0.03); Imm Gran Pct Auto 0.7 % (0.0-0.4); Lymphocytes Absolute Auto 2.7 X10*3/uL (1.2-4.9); Mean Corpuscular HGB Conc 32.5 g/dl (31.0-35.0); Mean Corpuscular Hemoglobin 28.4 pg (27.0-33.0); Mean Corpuscular Volume 87.4 fL (80.0-98.0); NRBC Abs Auto 0.000 X10*3/uL (0.0-0.012); NRBC Pct Auto 0.0 /100WBC (0.0-0.2); Platelet Count 249 X10*3/uL (160-400); Red Blood Count 4.37 X10*6/uL (4.20-5.50); White Blood Count 10.7 X10*3/uL (4.8-10.8)
[2025-03-14 09:46] LABS: Alanine Aminotransferase 31 U/L (0-31); Albumin Level 3.9 g/dL (3.5-5.0); Alkaline Phosphatase 107 U/L (39-117); Anion Gap 14 (12-20); Aspartate Amino Transferase 28 U/L (5-31); Blood Urea Nitrogen 31 mg/dL (9-16); Calcium 9.7 mg/dL (8.4-10.2); Carbon Dioxide 26 mmol/L (22-29); Chloride 102 mmol/L (96-108); Creatinine Clr Calc Pharmacy 65.4; Estimated Glomerular Filt Rate 42; Magnesium 1.7 mg/dL (1.6-2.6); Potassium 4.6 mmol/L (3.3-5.1); Sodium 137 mmol/L (135-145); Total Protein 7.4 g/dL (6.5-8.0)
[2025-03-14 09:58] LABS: Troponin-I High Sensitivity < 2.7 ng/L (<3.5-17.0)
[2025-03-14 10:16] VITALS: BP 110/57; PULSE 83; RESP 18; TEMP 36.6; O2SAT 95
[2025-03-14 10:18] LABS: NT Pro B Type Natriuretic Pept 37.6 pg/mL (<300)
--- NOTE | 2025-03-14 11:02 | PC.NURSE ---
late entry. At arrival to bed pt is ambulatort w/steady gait. Has plus 2-3 pitting edema BLE to mid shins. reports LUND. LS CTA. states she has had weight gain but not sure how much. Awaits surgery on right shoulder.
== END 2025-03-14 11:18 | disposition home or self-care (01) ==
PROVIDERS: Physician Assistant Medical; Emergency Provider Emergency Medicine Emergency Medical Services; PCP Internal Medicine
DX: S46.001A Unspecified injury of muscle(s) and tendon(s) of the rotator cuff of right shoulder, initial encounter (principal); X58.XXXA Exposure to other specified factors, initial encounter; Y93.9 Activity, unspecified; Y92.9 Unspecified place or not applicable; Y99.9 Unspecified external cause status; R07.9 Chest pain, unspecified; R06.02 Shortness of breath; M25.511 Pain in right shoulder; R60.9 Edema, unspecified; Z79.899 Other long term (current) drug therapy
CPT/HCPCS: 36415; 71046; 73030; 80053; 83735; 83880; 84484; 85025; 93005; 96374; 99284; J1885

== ENCOUNTER → 2025-03-14 09:05 | Outpatient (BNV) | payer OTHER, SELFPAY | PROVIDERS: Emergency Provider Emergency Medicine Emergency Medical Services; PCP Internal Medicine; Visit Provider Internal Medicine Cardiovascular Disease | DX: R07.9 Chest pain, unspecified (principal) | CPT/HCPCS: 93010 ==

== ENCOUNTER → 2025-03-14 09:05 | Outpatient (BNV) | payer OTHER, SELFPAY | PROVIDERS: PCP Internal Medicine; Visit Provider Radiology Vascular & Interventional Radiology | DX: R06.02 Shortness of breath (principal); M19.011 Primary osteoarthritis, right shoulder | CPT/HCPCS: 71046; 73030 ==

== ENCOUNTER 2025-04-10 13:56 | Emergency (ER) | payer OTHER, SELFPAY ==
--- NOTE | ~2025-04-10 | XR_ITS ---
CLINICAL HISTORY: low back pain with Left sciatica 4 views lumbar spine Comparison: None provided Findings: Mild lumbar dextroscoliosis. Fusion hardware L5-S1. No acute fractures or dislocation. Multilevel degenerative endplate changes of the lumbar spine with disc space narrowing and endplate osteophytes most pronounced at L2-3. IMPRESSION: No acute fracture. Multilevel degenerative endplate changes most pronounced at L2-3. This document has been electronically signed by: Yolis Juarez MD on 04/10/2025 18:03:29
--- NOTE | ~2025-04-10 | XR_ITS ---
EXAMINATION: XR CHEST CLINICAL INFORMATION: Fluid overload? leg swelling COMPARISON: March 14, 2025 TECHNIQUE: PA view of the chest was obtained. FINDINGS: No consolidation, pleural fissure pneumothorax. Cardiomediastinal silhouette size is normal. S-shaped curvature of the thoracic and thoracolumbar spine. Multilevel spondylosis. XR/XR chest 1V IMPRESSION: No acute airspace disease. No overt pulmonary edema. Electronically signed by: Arsenio Moreno MD 04/10/2025 02:36 PM EST
[2025-04-10 14:10] VITALS: BP 114/56; PULSE 93; RESP 18; TEMP 36.3; O2SAT 97; BMI 51.8
--- NOTE | 2025-04-10 14:14 | ECG_ITS ---
Test Reason : leg swelling Blood Pressure : */* mmHG Vent. Rate : 90 BPM Atrial Rate : 90 BPM P-R Int : 182 ms QRS Dur : 104 ms QT Int : 352 ms P-R-T Axes : 16 15 47 degrees QTcB Int : 430 ms Normal sinus rhythm Normal ECG When compared with ECG of 14-Mar-2025 09:20, No significant change was found Referred By: Abdi Sanchez Electronically Signed By: SUSANA HERNANDEZ
--- NOTE | 2025-04-10 14:16 | ED.GENADULT ---
HPI - General Adult General Chief complaint: Back Pain/Injury Stated complaint: Knee Leg Pain Time Seen by Provider: 04/10/25 16:12 History of Present Illness ED Provider: Oliva JEFFERS narrative: The patient is a 55-year-old woman who presents with about 4 days of pain in her left lower back radiating to her left leg. She denies any trauma or injury at the time the pain began. She says the pain began gradually and worsened over the last few days to the point where moving around his difficult. She has no dysuria. She says that she has had problems with urinary incontinence for over a year and wears pads because of that. No new urinary incontinence associated with this back pain syndrome. No fever, sweats, chills. The patient has a history of previous low back surgery. She has hardware at the L5-S1 level. She says that her surgery was many years ago by Dr. Gill. she says that she continued to see Dr. Gill as her back doctor for many years until he left the area several years ago. She has not seen a back doctor in many years. Related Data Home Medications ?Medication ?Instructions ?Recorded ?Confirmed glipizide 10 mg tablet, extended 10 mg PO BID 01/16/22 03/06/25 release 24 hr fluoxetine 10 mg capsule 10 mg PO DAILY 09/26/23 03/06/25 insulin regular hum U-500 conc 500 See Rx Instructions subcut .COMPLEX 09/26/23 03/06/25 unit/mL(3 mL) subcut pen tirzepatide 5 mg/0.5 mL 10 mg subcut QWEEK 08/14/24 03/06/25 subcutaneous pen injector (Mounjaro) furosemide 20 mg tablet (Lasix) 100 mg PO DAILY 02/10/25 03/06/25 aspirin 81 mg tablet,delayed 81 mg PO DAILY 03/03/25 03/06/25 release (Adult Low Dose Aspirin) metoprolol succinate 25 mg 25 mg PO DAILY 03/03/25 03/06/25 tablet,extended release 24 hr Previous Rx's ?Medication ?Instructions ?Recorded cholecalciferol (vitamin D3) 50 50 mcg PO DAILY 90 days #90 caps 09/26/23 mcg (2,000 unit) capsule budesonide-formoterol HFA 160 2 puff inhalation BID #10.2 grams 01/10/24 mcg-4.5 mcg/actuation aerosol inhaler (Symbicort) ABSORBANT HEAVY PADS #3 ea 03/21/24 DISPOSABLE WIPES #3 ea 03/21/24 lubiprostone 8 mcg capsule 16 mcg (2 x 8 mcg) PO BID 60 days 10/23/24 #240 caps atorvastatin 40 mg tablet 40 mg PO BEDTIME 90 days #90 tabs 11/19/24 metoclopramide HCl 10 mg tablet 10 mg PO TID PRN for 02/12/25 nausea/vomiting #90 tabs omeprazole 20 mg capsule,delayed 20 mg PO BID #50 caps 02/12/25 release fluticasone propionate 50 1 spray intranasal DAILY #16 grams 02/13/25 mcg/actuation nasal spray,suspension lorazepam 0.5 mg tablet 0.5 mg PO TID PRN anxiety 30 days 03/03/25 #90 tabs primidone 50 mg tablet 50 mg PO BID 30 days #60 tabs 03/03/25 albuterol sulfate 90 mcg/actuation 2 puff PO Q4-6H PRN for wheezing 03/12/25 aerosol inhaler #8.5 grams lisinopril 5 mg tablet 5 mg PO DAILY 90 days #90 tabs 03/12/25 meloxicam 15 mg tablet 15 mg PO DAILY PRN pain 30 days 03/12/25 #30 tabs pramipexole 1 mg tablet 1 mg PO TID 30 days #90 tabs 03/12/25 spironolactone 100 mg tablet 100 mg PO BID 30 days #60 tabs 03/12/25 tramadol 50 mg tablet See Rx Instructions .Route 03/12/25 .COMPLEX PRN pain 25 days #100 tabs clotrimazole-betamethasone 1 1 appl topical BID #45 grams 03/28/25 %-0.05 % topical cream sennosides 8.6 mg tablet 8.6 mg PO BID #60 tabs 03/29/25 (Black-Draught Lax-Senna) acetaminophen 500 mg capsule 1,000 mg (2 x 500 mg) PO Q8H PRN 04/10/25 fever or pain #14 caps cyclobenzaprine 10 mg tablet 10 mg PO TID PRN muscle spasm #14 04/10/25 tabs oxycodone 5 mg tablet 5 mg PO Q6-8H PRN severe pain 7 04/10/25 days #28 tabs Allergies Allergy/AdvReac Type Severity Reaction Status Date / Time adhesive tape Allergy Intermediate Rash Verified 04/10/25 14:14 empagliflozin (From Allergy Intermediate Rash Verified 04/10/25 14:14 JARDIANCE) sitagliptin (From JANUVIA) AdvReac Severe Rash,nausea, Verified 04/10/25 14:14 hypoglycemia metformin (METFORMIN) AdvReac Intermediate Rash, GI Verified 04/10/25 14:14 upset jardiance Allergy Intermediate Rash Uncoded 03/14/25 08:32 metformin Allergy Intermediate Rash Uncoded 03/14/25 08:32 Review of Systems Review of Systems: Yes all other systems are reviewed and are negative [facility] Past Medical History Medical History Morbid obesity with BMI of 45.0-49.9, adult Coronary artery disease Vitamin D deficiency Degenerative joint disease of right shoulder Restrictive lung disease MATILDA (obstructive sleep apnea) Asthma COPD (chronic obstructive pulmonary disease) Blood dyscrasia Superficial bruising of lower leg Pain and swelling of right lower extremity Morbid obesity with BMI of 50.0-59.9, adult Pure hypercholesterolemia Fatigue Diabetes mellitus Pedal edema Nausea and vomiting Abdominal pain Atypical chest pain On beta kelsey at home Dyspnea on effort Asthma Sleep apnea with use of continuous positive airway pressure (CPAP) HTN (hypertension) Liver cirrhosis Pars defect of lumbar spine Spondylolisthesis, lumbar region Postlaminectomy syndrome, lumbar Spondylosis of lumbar spine Rectal bleeding Fatty pancreas Chronic constipation Cirrhosis of liver without ascites Body mass index [BMI] 50.0-59.9, adult Morbid (severe) obesity due to excess calories Depression Anxiety Insomnia Obstructive sleep apnea Periodic limb movement disorder Neuropathic pain of both feet GERD (gastroesophageal reflux disease) Gastroparesis Lumbar degenerative disc disease Benign essential hypertension Dyslipidemia Diastolic dysfunction Type 2 diabetes mellitus with diabetic autonomic (poly)neuropathy Surgical History H/O colonoscopy History of surgery History of esophagogastroduodenoscopy (EGD) H/O cardiac catheterization (~12/14/17) H/O section History of laryngoscopy (~02/10/19) History of ventral hernia repair (~2008) History of appendectomy History of lumbar discectomy Family History Family History Father Diabetes mellitus Hypertension Mother Diabetes mellitus Hypertension Uterine cancer History of heart attack Social History Social History Housing: Apartment Are you a primary emergency care attendant to a significant other at home: No Do you presently have visiting nurse or other home services: Yes (Home Health Aide, VNA) Alcohol intake: never Patient Tobacco Use Status: Former Tobacco user Tobacco use type: Cigarette Years Smoked: 10 e-Cigarette/Vaping Use: Never Used Second Hand Smoke Exposure: No Advance Directives: Yes Advance Directives on File: Yes Advance Directives Date on File: 02/14/24 service: No Current occupational status: disabled Cognitive needs: No Hearing needs: No Vision needs: Yes Physical Exam ED Vital Signs: Vital Signs - 24 hr 04/10/25 14:10 04/10/25 18:06 Temperature 97.3 F 97.3 F Pulse Rate 93 93 Respiratory Rate 18 18 Blood Pressure 114/56 L 114/56 L Pulse Oximetry 97 97 Oxygen Delivery Method Room Air Room Air BMI result Body Mass Index 51.8 Const Other: The patient is a 55-year-old woman who was awake and alert. She was pleasant and cooperative. She looks mildly uncomfortable when she changed positions but did not seem acutely uncomfortable or toxic otherwise. HENMT Other: The face is symmetrical. Mucous membranes moist. Eyes General: appearance normal, both eyes and all related structures Neck Other: Neck: Yes normal visual inspection and Yes full ROM Resp Effort & Inspection: normal respiratory effort Auscultation: clear to auscultation bilaterally Cardio Rate: regular rate Rhythm: regular rhythm Heart sounds: S1 normal heart sound present and S2 normal heart sound present GI Other: abdomen is soft and nontender Back/Spine/Pelvis Other: the patient has some tenderness in the region of the left lower back in the left paraspinous region and near the posterior superior iliac spine. She has a positive ipsilateral straight leg raise test with the elevation of the left leg. She does not have a positive contralateral straight leg raise test. Skin Other: The skin is dry and unremarkable Neuro Other: The patient is awake and alert with a normal mental status. Cranial nerves are grossly intact. She has normal strength and sensation in her upper extremities. She reports some diminished sensation in the left lower leg at the foot. She seems to have intact strength however. She walks reasonably well without a footdrop. Extrem Other: The patient indicates that she has pain in the region of her left lower back, the left hip, and the left thigh. She has a left leg positive straight leg raise test. Otherwise I can manipulate the joints of the left leg easily. There was no peripheral edema. No calf swelling or tenderness. The feet are well-perfused. Course Course Course Narrative: RME: Medications Administered Discontinued Medications Generic Name Dose Route Start Last Admin Trade Name Romy PRN Reason Stop Dose Admin Acetaminophen 975 mg 04/10/25 16:47 04/10/25 17:05 Acetaminophen 325 Mg Tablet PO 04/10/25 16:48 975 mg ONCE ONE Administration Cyclobenzaprine HCl 10 mg 04/10/25 16:47 04/10/25 17:05 Cyclobenzaprine Hcl 10 Mg Tablet PO 04/10/25 16:48 10 mg ONCE ONE Administration Oxycodone HCl 10 mg 04/10/25 16:47 04/10/25 17:06 Oxycodone Hcl Immed Release 5 Mg Tablet PO 04/10/25 16:48 10 mg ONCE ONE Administration Medical Decision Making Medical Decision Making MDM Narrative: The patient is a 55-year-old woman who presents with what seems like a left-sided sciatica syndrome. She has a left lower back pain radiating down the left leg mostly into the left thigh. She has had no fever, sweats or chills. she describes some chronic urinary incontinence symptoms but no new incontinence symptoms of any kind. An x-ray of the lumbar spine shows intact hardware at the L5-S1 level. The patient had mentioned some slight shortness of breath at triage. She did not mention any respiratory symptoms to me or any chest symptoms to me. She has a normal EKG. She has an undetectable troponin. She has a normal proBNP. Chest x-ray is unremarkable. I do not think the patient is left leg symptoms are suggestive of a DVT. I do not think the patient is having an acute coronary syndrome or a pulmonary embolism. This seems to me to be a sciatica syndrome. She was given a dose of oral oxycodone, cyclobenzaprine, and acetaminophen. Her renal function is somewhat compromised and therefore she should not use nonsteroidal anti-inflammatories. The patient seemed to get relief of her pain with the above medications. She was ambulatory without difficulty. Her gait appeared normal. The patient will be discharged with a prescription for cyclobenzaprine and acetaminophen. The patient tells me that she has been tramadol and oxycodone at home. She was advised that she should not take tramadol and cyclobenzaprine together. She should contact her regular doctor on Sunday for a follow up appointment for ongoing management of the syndrome. She was also given contact information for [facility] and also Dr. An office for possible follow up with a back specialist. Lab Data 04/10/25 14:42 04/10/25 14:42 Labs: Lab Results 04/10/25 Range/Units 14:42 WBC 11.3 H (4.8-10.8) X10*3/uL RBC 4.66 (4.20-5.50) X10*6/uL Hgb 13.3 (12.0-16.0) g/dl Hct 40.5 (37.0-47.0) % MCV 86.9 (80.0-98.0) fL MCH 28.5 (27.0-33.0) pg MCHC 32.8 (31.0-35.0) g/dl RDW 13.2 (11.0-16.0) % Plt Count 269 (160-400) X10*3/uL MPV 10.6 (9.4-12.3) fL Immature Gran % (Auto) 0.6 H (0.0-0.4) % Neut % (Auto) 61.4 (45-73) % Lymph % (Auto) 24.9 (20-40) % [place] % (Auto) 7.4 (2-11) % Eos % (Auto) 5.1 H (0-4) % Baso % (Auto) 0.6 (0-2) % Lymph # (Auto) 2.8 (1.2-4.9) X10*3/uL [place] # (Auto) 0.8 (0.1-1.2) X10*3/uL Eos # (Auto) 0.6 H (0.0-0.4) X10*3/uL Baso # (Auto) 0.1 (0.0-0.2) X10*3/uL Abs Immat Gran (auto) 0.07 H (0.00-0.03) X10*3/uL Absolute Neuts (auto) 6.9 (2.0-8.3) x10*3/uL Absolute Nucleated RBC 0.000 (0.0-0.012) X10*3/uL Nucleated RBC % (auto) 0.0 (0.0-0.2) /100WBC PT 14.1 H (11.2-13.5) SEC INR 1.2 H (0.9-1.1) APTT 30.4 (26.7-34.1) SEC Sodium 138 (135-145) mmol/L Potassium 4.3 (3.3-5.1) mmol/L Chloride 100 (96-108) mmol/L Carbon Dioxide 29 (22-29) mmol/L Anion Gap 13 (12-20) BUN 37 H (9-16) mg/dL Creatinine 1.40 (0.5-1.4) mg/dL Estim Creat Clear Calc 59.8 Estimated GFR 39 Random Glucose 172 H (60-115) mg/dL Calcium 10.7 H D (8.4-10.2) mg/dL Total Bilirubin 0.5 (0.0-1.0) mg/dL AST 28 (5-31) U/L ALT 31 (0-31) U/L Alkaline Phosphatase 105 (39-117) U/L Troponin I High Sens < 2.7 (<3.5-17.0) ng/L NT-Pro-B Natriuret Pep 42.3 (<300) pg/mL Total Protein 8.0 (6.5-8.0) g/dL Albumin 4.2 (3.5-5.0) g/dL Independent Interpretation I performed an independent interpretation of an: EKG Interpretation: EKG at 14:34 showed normal sinus rhythm at 90 beats per minute. It is a normal EKG and similar to previous EKGs. Discharge Plan Discharge Clinical Impression: Acute left-sided low back pain with left-sided sciatica Patient Disposition: Home, Self-Care Instructions: Sciatica (ED) Additional Instructions: I think you have a back pain syndrome that we call sciatica. I have sent a prescription for a muscle relaxant called cyclobenzaprine that you may use to help with your pain. Please be aware that you should not take cyclobenzaprine at the same time that you were taking tramadol. It is okay to use cyclobenzaprine in combination with the oxycodone but not with tramadol. Therefore do not take tramadol if you are taking the cyclobenzaprine, and vice versa. I have also sent a prescription for acetaminophen that you may use 3 times a day as needed for pain. Please follow up soon with your regular doctor to discuss this pain syndrome. Additionally it would be good for you to see a back doctor. I have sent the contact information for [facility] and I have also sent the contact information for Dr. An, the [place] spine surgeon. Return to the emergency room if worse. Prescriptions: New cyclobenzaprine 10 mg tablet 10 mg PO TID PRN (Reason: muscle spasm) Qty: 14 0RF acetaminophen 500 mg capsule 1,000 mg PO Q8H PRN (Reason: fever or pain) Qty: 14 0RF No Action budesonide-formoterol [Symbicort] 160-4.5 mcg/actuation HFA aerosol inhaler 2 puff inhalation BID Qty: 10.2 3RF (DME) ABSORBANT HEAVY PADS See Rx Instructions .Route .MEDSUPPLY Qty: 3 12RF Rx Instructions: As directed (DME) DISPOSABLE WIPES See Rx Instructions .Route .MEDSUPPLY Qty: 3 12RF Rx Instructions: As directed lubiprostone 8 mcg capsule 16 mcg PO BID 60 Days Qty: 240 2RF atorvastatin 40 mg tablet 40 mg PO BEDTIME 90 Days Qty: 90 1RF metoclopramide HCl 10 mg tablet 10 mg PO TID PRN (Reason: for nausea/vomiting) Qty: 90 2RF omeprazole 20 mg capsule,delayed release(DR/EC) 20 mg PO BID Qty: 50 5RF fluticasone propionate 50 mcg/actuation spray,suspension 1 spray intranasal DAILY Qty: 16 3RF lorazepam 0.5 mg tablet 0.5 mg PO TID PRN (Reason: anxiety) 30 Days Qty: 90 4RF albuterol sulfate 90 mcg/actuation HFA aerosol inhaler 2 puff PO Q4-6H PRN (Reason: for wheezing) Qty: 8.5 2RF meloxicam 15 mg tablet 15 mg PO DAILY PRN (Reason: pain) 30 Days Qty: 30 1RF Rx Instructions: Take with food lisinopril 5 mg tablet 5 mg PO DAILY 90 Days Qty: 90 1RF spironolactone 100 mg tablet 100 mg PO BID 30 Days Qty: 60 1RF pramipexole 1 mg tablet 1 mg PO TID 30 Days Qty: 90 1RF tramadol 50 mg tablet See Rx Instructions .ROUTE .COMPLEX PRN (Reason: pain) 25 Days Qty: 100 1RF Rx Instructions: Take 1 to 2 tablets orally twice a day as needed for pain PRN; clotrimazole-betamethasone 1-0.05 % cream 1 appl topical BID Qty: 45 2RF sennosides [Black-Draught Lax-Senna] 8.6 mg tablet 8.6 mg PO BID Qty: 60 3RF oxycodone 5 mg tablet 5 mg PO Q6-8H PRN (Reason: severe pain) 7 Days Qty: 28 0RF Mounjaro 5 mg/0.5 mL pen injector 10 mg subcut QWEEK insulin regular hum U-500 conc 500 unit/mL (3 mL) insulin pen See Rx Instructions subcut .COMPLEX Rx Instructions: 200 units in AM, 150 units at lunchtime and 150 units at dinnertime subcutaneously; glipizide 10 mg tablet extended release 24hr 10 mg PO BID fluoxetine 10 mg capsule 10 mg PO DAILY cholecalciferol (vitamin D3) 50 mcg (2,000 unit) capsule 50 mcg PO DAILY 90 Days Qty: 90 3RF aspirin [Adult Low Dose Aspirin] 81 mg tablet,delayed release (DR/EC) 81 mg PO DAILY metoprolol succinate 25 mg tablet extended release 24 hr 25 mg PO DAILY primidone 50 mg tablet 50 mg PO BID 30 Days Qty: 60 8RF furosemide [Lasix] 20 mg tablet 100 mg PO DAILY Rx Instructions: 3 tabs in am and 2 tabs in pm Referrals: [facility] [Provider Group, Sports Medicine] Bi Dennis MD [Primary Care Provider, Internal Medicine] Victor Manuel An MD, PhD [Physician, Neuro Spine] Interventions: ED Discharge Assessment Last Done: 04/10/25 18:06 Discharge Date/Time: 04/10/25 18:06 Print Language: Polish
[2025-04-10 14:45] LABS: MANUAL DIFF FLAG NO
[2025-04-10 14:52] LABS: INTERNATIONAL NORM RATIO 1.2 (0.9-1.1); Prothrombin Time 14.1 SEC (11.2-13.5)
[2025-04-10 14:53] LABS: Hematocrit 40.5 % (37.0-47.0); Hemoglobin 13.3 g/dl (12.0-16.0); Imm Gran Abs Auto 0.07 X10*3/uL (0.00-0.03); Imm Gran Pct Auto 0.6 % (0.0-0.4); Lymphocytes Absolute Auto 2.8 X10*3/uL (1.2-4.9); Mean Corpuscular HGB Conc 32.8 g/dl (31.0-35.0); Mean Corpuscular Hemoglobin 28.5 pg (27.0-33.0); Mean Corpuscular Volume 86.9 fL (80.0-98.0); NRBC Abs Auto 0.000 X10*3/uL (0.0-0.012); NRBC Pct Auto 0.0 /100WBC (0.0-0.2); Platelet Count 269 X10*3/uL (160-400); Red Blood Count 4.66 X10*6/uL (4.20-5.50); White Blood Count 11.3 X10*3/uL (4.8-10.8)
[2025-04-10 14:54] LABS: Partial Thromboplastin Time 30.4 SEC (26.7-34.1)
[2025-04-10 15:02] LABS: Alanine Aminotransferase 31 U/L (0-31); Albumin Level 4.2 g/dL (3.5-5.0); Alkaline Phosphatase 105 U/L (39-117); Anion Gap 13 (12-20); Aspartate Amino Transferase 28 U/L (5-31); Blood Urea Nitrogen 37 mg/dL (9-16); Calcium 10.7 mg/dL (8.4-10.2); Carbon Dioxide 29 mmol/L (22-29); Chloride 100 mmol/L (96-108); Creatinine Clr Calc Pharmacy 59.8; Estimated Glomerular Filt Rate 39; Potassium 4.3 mmol/L (3.3-5.1); Sodium 138 mmol/L (135-145); Total Protein 8.0 g/dL (6.5-8.0)
[2025-04-10 15:12] LABS: Troponin-I High Sensitivity < 2.7 ng/L (<3.5-17.0)
[2025-04-10 15:27] LABS: NT Pro B Type Natriuretic Pept 42.3 pg/mL (<300)
--- OUTSIDE RECORDS SUMMARY | 2025-04-10 16:20 | XMS_ITS | Clinical Summary ---
Author Organization [facility] Address [address] [place] [address] Phone Care Team Providers Care Lead Engineer Name Role Phone Bi Dennis MD Primary Care Provider [phone] Allergies Active Allergy Reactions Criticality Noted Date Comments Empagliflozin Hives,Rash Low 01/12/2020 Metformin Rash Low 01/12/2020 Sitagliptin Hives,Rash Low 01/19/2020 Medications atorvastatin (LIPITOR) 40 MG tablet 1 Active Symbicort 80-4.5 MCG/ACT inhaler 1 Active HumuLIN R U-500 KWIKPEN 500 UNIT/ML CONCENTRATED injection 1 Active lisinopril (PRINIVIL,ZESTRI L) 5 MG tablet 1 Active LORazepam (ATIVAN) 0.5 MG tablet 1 Active Amitiza 8 MCG capsule 1 Active meloxicam (MOBIC) 15 MG tablet 1 Active metoclopramide (REGLAN) 10 MG tablet 1 Active omeprazole (PriLOSEC) [address] capsule 1 Active pramipexole (MIRAPEX) 1 MG tablet 1 Active traMADol (ULTRAM) 50 MG tablet 1 Active fluticasone (FLONASE) 50 MCG/ACT nasal spray 1 Active FreeStyle Precision Gerard Test test strip 1 Active oxyCODONE (ROXICODONE) 5 MG immediate release tablet 1 Active primidone (MYSOLINE) 50 MG tablet 1 Active glipiZIDE (GLUCOTROL) 10 MG tablet Take [...] 5 mg under the skin 4 Active Continuous Glucose Transmitter (Cleartripcom G6 Transmitter) miscIndications: Stage 3a chronic kidney disease (HCC) 5 Active cholecalciferol (VITAMIN D-3) 50 MCG (1999 UT) tabletIndication s:Stage 3b chronic kidney disease (HCC),Vitamin D deficiency, not otherwise specified TAKE ONE TABLET BY MOUTH EVERY MORNING ^1R1 30 tablet 2 5 Active aspirin (ST TRISTEN) 81 MG EC tablet Take 81 mg by mouth 1 (one) time each day 8 Active metoprolol succinate XL (TOPROL XL) 25 MG 24 hr tablet Take 25 mg by mouth 1 (one) time each day 5 Active gabapentin (NEURONTIN) 600 MG tablet Take 600 mg by mouth at bed time Active Torsemide 40 MG tabletIndication s:Stage 3a chronic kidney disease (HCC),Hypertensi on,Bilateral localized swelling of lower legs Take 40 mg by mouth 1 (one) time each day 30 tablet 2 5 06/14/19 26 Active furosemide (LASIX) 20 MG tabletIndication s:Hypertension Take 5 tablets (100 mg total) by mouth 1 (one) time each day Take 3 tablets in the AM, take 2 tablets in the afternoon 450 tablet 5 03/16/20 25 Discontin ued(Formu genia change) Active Problems Problem Noted Date Diagnosed Date [...] Encounters Date Type Department Care Team Description 03/16/2025 3:30 PM EDT Office Visit [facility] [address] [id number] Liberty Hairston ARNP Stage 3a chronic kidney disease (HCC) (Primary Dx); Hypertension; Bilateral localized swelling of lower legs; Vitamin D deficiency, not otherwise specified; Hypo-osmolality and hyponatremia; Hyperkalemia 02/12/2025 Refill [facility] [address] [id number] Liberty Hairston ARNP Stage 3b chronic kidney disease (HCC); Vitamin D deficiency, not otherwise specified 01/26/2025 1:15 PM EDT Office Visit [facility] [address] [id number] Liberty Hairston ARNP Stage 3a chronic kidney disease (HCC) (Primary Dx); Bilateral localized swelling of lower legs; Hypertension; Hyperkalemia; Hypo-osmolality and hyponatremia; Vitamin D deficiency, not otherwise specified from [...] Years Used Date Smoking Tobacco: Former Cigarettes 0 Q uit: 10/23/2006 Smokeless Tobacco: Never Tobacco [...] Sign Reading Time Taken Comments Blood Pressure 115/80 03/16/2025 3:46 PM EDT Pulse 80 03/16/2025 3:46 PM EDT Temperature - - Respiratory Rate - - Oxygen Saturation 94% 11/27/2024 1:48 PM EDT Inhaled Oxygen Concentration - - Weight 135 kg (297 lb) 03/16/2025 3:46 PM EDT Height 160 cm (5' 3 ) 01/26/2025 1:12 PM EDT Body Mass Index 52.61 01/26/2025 1:12 PM EDT Plan of Treatment Upcoming Encounters Date Type Department Care Team (Late st Contact Info) Description 05/04/2025 2:45 PM EST Office Visit [facility] [address] [phone] Juan Michelle MD [address] [phone] 05/10/2025 Orders Only [facility] [place] [id number] [phone] Liberty Hairston ARNP [address] [phone] Stage 3a chronic kidney disease (HCC); Hypertension; Frequency of micturition Health Maintenance Due Date Last Done Comments [...] Routine 01/26/2025 EXT RESULT ENTRY Routine 01/23/2025 HEMOGLOBIN A1C Routine 05/06/2021 9:46 AM EST Type 2 diabetes mellitus with diabetic chronic kidney disease (HCC) Hypertension from Last 3 Months or Most Recently Relevant to Health Maintenance Results * (ABNORMAL) Basic metabolic panel (02/16/2025 9:43 AM EDT) Glucose 340(H) 70 - 99 mg/dL [facility] BUN 22 6 - 24 mg/dL [facility] Creatinine 1.24(H) 0.57 - 1.00 mg/dL [facility] eGFR CKD-EPI CR 2020 51(L) >59 mL/min/1.7 3 [facility] BUN/Creatinine Ratio 18 9 - 23 [facility] Sodium 137 134 - 144 mmol/L [facility] Potassium 5.0 3.5 - 5.2 mmol/L [facility] Chloride 101 96 - 106 mmol/L [facility] Bicarbonate (CO2) 20 20 - 29 mmol/L [facility] Calcium 9.4 8.7 - 10.2 mg/dL [facility] Blood Venous blood / Unknown 02/16/2025 9:43 AM EDT 02/16/2025 Liberty SOILMAN LAB BLOOD ORDERABLES Final Result [facility] [address] [place] [address] * EXT RESULT ENTRY (01/26/2025) Only the [...] 10.4 8.7 - 10.7 mg/dL eGFR Non-Afr Indian 62 01/26/2025 Historical Provider LAB BLOOD ORDERABLES Araceli l Result * (ABNORMAL) Hemoglobin A1c (05/06/2021 9:46 AM EST) Hemoglobin A1C 11.9(H) (4.0-5.6) % [facility] Comment: MONITORING: In known diabetic patients, hemoglobin A1c targets should be discussed with health care provider. DIAGNOSTIC USE: The [place] Diabetes Association (ADA) and the World Health [...] Supplement 1 Testing performed or reported by [facility], a Service of [facility], [address] [place] [address] Winter Cruz MD, [employer] [facility]# [id number] Blood specimen (specimen) Venous blood / Unknown 05/06/2021 9:46 AM EST 05/06/2021 9:48 AM EST Linden Munoz MD LAB BLOOD ORDERABLES Final Re sult [facility] from Last 3 Months or Most Recently Relevant to Health Maintenance Insurance [facility] ([id number]) [facility] ([id number]) YARIEL ARMSTRONG [id number] Care Teams Lead Engineer Relationship Specialty Start Date End Date Bi Dennis MD [address] [place] [address] [address] [place] [address] PCP - General Internal Medicine 04/11/21
--- OUTSIDE RECORDS SUMMARY | 2025-04-10 16:20 | XMS_ITS | Clinical Summary ---
Author Organization [facility] Address [address] [place] [address] Care Team Providers Care Fitness And Wellness Director Name Role Phone Bi Dennis MD Primary Care Provider [phone] Immunizations Immunization Administration Dates Next Due COVID-19, [...] - Td or Tdap) 03/03/2026 03/03/2016 RSV (1 - 1-dose 75+ series) 2044 HPV Vaccine (No Doses Required) Completed Hep [...] Patient Date of Phone Billing Address Personal/Family [address] [place] [address] [address] [place] [address] MEDICAID MEDICARE PART B Care Teams Fitness And Wellness Director Relationship Specialty Start Date End Date Bi Dennis MD [address] [place] [address] PCP - General Internal Medicine 11/03/19
--- OUTSIDE RECORDS SUMMARY | 2025-04-10 16:20 | XMS_ITS | Clinical Summary ---
Author Organization [facility] ity Address [address] [place] [address] Care Team Providers Care Sidewalk Inspector Name Role Phone Bi Dennis MD Primary [...] Depression Screening 05/21/2024 COVID-19 Vaccine (1 - 2024-2 6 season) 2025 Influenza Vaccine (#1) 2025 RSV [...] age to complete this topic Care Teams Sidewalk Inspector Relationship Specialty Start Date End Date Bi Dennis MD [address] [place] [address] [address] [place], [place] PCP - General Internal Medicine 12/15/16
--- OUTSIDE RECORDS SUMMARY | 2025-04-10 16:21 | XMS_ITS | Clinical Summary ---
Author Organization [facility] Address [address] [place] [address] Care Team Providers Care Engineer Intern Name Role Phone Bi Dennis Primary Care Provider [phone] Allergies Active Allergy Reactions Criticality Noted Date [...] Health Nicole ual Screening 05/21/2024 Influenza Vaccine (#1) 2024 9, 03/06/2018, 03/27/2017, Additional history exists COVID-19 Vaccine (3 - 2024-2 6 season) 2025 10/22/2020, 09/24/2020 DTaP,Tdap,and Td Vaccines (2 - Td or Tdap) 03/03/2026 03/03/2016 Procedures * Due to [place] [employer] law, this organization might not be sharing negative HIV tests. Procedure Name Priority Date/Time Associated Diagnosis Comments AMB EXTERNAL CT CHEST, OUTSI DE RESULT Routine 01/09/2019 from Last 3 Months or Most Recently Relevant to Health Maintenance Results * Due to [place] [employer] law, this organization might not be sharing negative HIV tests. * CT Chest, Outside Result (01/09/2019) us In System Do Not Edit Provider-Not AMB EXTERNAL RESULT PROCEDURES Final Result from Last 3 Months or Most Recently Relevant to Health Maintenance Insurance [facility] Care Teams Engineer Intern Relationship Specialty Start Date End Date Bi Dennis [address] [place] [address] dr Lavell Monte, [place] [address] PCP - General Internal Medicine 01/05/20
[2025-04-10] MEDS: oxyCODONE HCl Immed Release 5 MG TABLET 10 MG PO (17:06)
[2025-04-10 18:06] VITALS: BP 114/56; PULSE 93; RESP 18; TEMP 36.3; O2SAT 97
== END 2025-04-10 18:06 | disposition home or self-care (01) ==
PROVIDERS: Physician Assistant; Emergency Provider Emergency Medicine; PCP Internal Medicine
DX: M54.42 Lumbago with sciatica, left side (principal); M79.605 Pain in left leg; R32 Unspecified urinary incontinence; R06.02 Shortness of breath; R60.0 Localized edema; Z79.899 Other long term (current) drug therapy; Z87.891 Personal history of nicotine dependence
CPT/HCPCS: 36415; 71045; 72100; 80053; 83880; 84484; 85025; 85610; 85730; 93005; 99284

== ENCOUNTER → 2025-04-10 14:14 | Outpatient (BNV) | payer OTHER, SELFPAY | PROVIDERS: Emergency Provider Emergency Medicine; PCP Internal Medicine; Visit Provider Internal Medicine | DX: M79.89 Other specified soft tissue disorders (principal) | CPT/HCPCS: 93010 ==

== ENCOUNTER → 2025-04-10 14:14 | Outpatient (BNV) | payer OTHER, SELFPAY | PROVIDERS: PCP Internal Medicine; Visit Provider Radiology Diagnostic Radiology | DX: M51.360 Other intervertebral disc degeneration, lumbar region with discogenic back pain only (principal); M54.42 Lumbago with sciatica, left side; E87.70 Fluid overload, unspecified | CPT/HCPCS: 71045; 72100 ==

== ENCOUNTER 2025-04-20 12:35 | Outpatient (REF) | payer OTHER, SELFPAY ==
--- NOTE | 2025-04-20 14:20 | EEG_ITS ---
History: Vitamin D deficiency, Degenerative joint disease of right shoulder, Restrictive lung disease, COPD (chronic obstructive pulmonary disease), Blood dyscrasia, Pure hypercholesterolemia, Fatigue, Pedal edema, Atypical chest pain, HTN (hypertension), Liver cirrhosis, Pars defect of lumbar spine, Spondylolisthesis, lumbar region, Postlaminectomy syndrome, Fatty pancreas,Cirrhosis of liver without ascites, Depression, Anxiety, Insomnia, Obstructive sleep apnea, Periodic limb movement disorder, Neuropathic pain of both feet, GERD (gastroesophageal reflux disease), Gastroparesis, Lumbar degenerative disc disease, Benign essential hypertension, Dyslipidemia, Diastolic dysfunction, Type 2 diabetes mellitus with diabetic autonomic (poly)neuropathy - Tremors in hands continue, worse in the morning. Waking up with tremors, jittery body, and hands shake. Her sister tells her she makes jerking movements at night and her speech sounds slurred when she wakes. She is concerned for memory changes, notices she is more forgetful recently. While cooking at home, she not remember how to use buttons on stove and had to call sister. Decline in short term memory. Medication: albuterol sulfate, aspirin, atorvastatin, budesonide-formoterol, cholecalciferol (vitamin D3), clotrimazole-betamethasone, fluoxetine, fluticasone propionate, furosemide (Lasix), glipizide ER, lisinopril lorazepam, lubiprostone, meloxicam, metoclopramide HCl, metoprolol succinate ER, omeprazole, oxycodone, pramipexole, primidone, sennosides, spironolactone, tirzepatide, tramadol Technical Description Photic Stimulation: completed Hyperventilation: omitted Behavioral State: pleasant State of Consciousness: awake and sleep Skull Defect: none Sedation: none Handedness: right Duration: 34 min 21 sec Site Surveyor Comments: patient was restless due to pain in shoulder Last Meal: 04/19 @ 8 pm Time / date of last symptom: every morning Description: The waking background activity consists of a otu-[id number]-[id number] voltage 8 hertz posterior alpha frequency intermixed anteriorly with low-voltage fast frequencies intermixed with muscle artifacts. Drowsiness is characterized by diffuse theta slowing. Light sleep stages I entered briefly. Photic stimulation is without activation. Hyperventilation was omitted. Impression: This awake and light sleep EEG is considered within normal limits [facility]
--- OUTSIDE RECORDS SUMMARY | 2025-04-20 16:13 | XMS_ITS | Encounter Summary ---
Author Organization [facility] Address [address] [facility] [address] [place] [address] Phone Care Team Providers Care Retail Sales Director Name Role Phone Bi Dennis MD Primary Care Provider [phone] Encounter Details Date Type Department Care Team ([facility] Contact Info) Description 04/13/2025 Telephone [facility] [address] [facility] [address] [place] [phone] Liberty Cunningham [address] [facility] [address] [place] [id number] Social History Tobacco Use Types Packs/Day Years Used Date Smoking Tobacco: Former Cigarettes 0 Q uit: 10/23/2006 Smokeless Tobacco: Never Alcohol Use Standard Drinks/Week Comments Yes 0 (1 standard drink = 0.6 oz pur e alcohol) Comments Unknown Sex and Gender Information Value Date Recorded Sex Assigned at Not on file Legal Sex Female 4:52 PM EST Gender Identity Not on file Sexual Orientation Not on file documented as of this encounter Miscellaneous Notes * Telephone Encounter - Mackenzie Layne - 04/20/2025 12:59 PM EST ED notes nad lab obtain from Lavell and placed on your desk for review * Telephone Encounter - Liberty Cunningham - 04/13/2025 10:42 AM EST Pt call today. Pt was at the emergency room and she got some labs done. She would like you to review her lab results since you wanted her to get labs done. She would like to speak to you. [phone] documented in this encounter Plan of Treatment Upcoming Encounters Date Type Department Care Team (Late st Contact Info) Description 05/04/2025 2:45 PM EST Office Visit [facility] [address] [address] Juan Michelle MD [facility] [address] [address] 05/10/2025 Orders Only [facility] [address] [address] Liberty Hairston ARNP [facility] [address] [address] Stage 3a chronic kidney disease (HCC); Hypertension; Frequency of micturition documented as of this encounter Visit Diagnoses Not on filedocumented in this encounter Care Teams Retail Sales Director Relationship Specialty Start Date End Date Bi Dennis MD [address] [facility] [address] [place] [id number] PCP - General Internal Medicine 04/11/21 documented as of this encounter
--- OUTSIDE RECORDS SUMMARY | 2025-04-20 16:13 | XMS_ITS | Clinical Summary ---
Author Organization [facility] Address [address] [facility] [address] [place] [address] Phone Care Team Providers Care Check Writer Name Role Phone Bi Dennis MD Primary Care Provider [phone] Allergies Active Allergy Reactions Criticality Noted Date [...] the skin 4 Active Continuous Glucose Transmitter ([employer] G6 Transmitter) miscIndications:S tage 3a chronic kidney disease (HCC) 5 Active cholecalciferol (VITAMIN D-3) 50 MCG (1999 UT) tabletIndications :Stage 3b [...] at bed time Active Torsemide 40 MG tabletIndications :Stage 3a chronic kidney disease (HCC),Hypertensio n,Bilateral localized swelling of lower legs Take 40 mg by mouth 1 (one) time each day 30 tablet 2 5 06/14/19 26 Active Active Problems Problem Noted Date Diagnosed [...] Encounters Date Type Department Care Team Description 04/13/2025 Telephone [facility] [address] [phone] Liberty Cunningham 03/16/2025 3:30 PM EDT Office Visit [facility] [address] [phone] Liberty Hairston ARNP Stage 3a chronic kidney disease (HCC) (Primary Dx); Hypertension; Bilateral localized swelling of lower legs; Vitamin D deficiency, not otherwise specified; Hypo-osmolality and hyponatremia; Hyperkalemia 02/12/2025 Refill [facility] [address] [phone] Liberty Hairston ARNP Stage 3b chronic kidney disease (HCC); Vitamin D deficiency, not otherwise specified 01/26/2025 1:15 PM EDT Office Visit [facility] [address] [phone] Liberty Hairston ARNP Stage 3a chronic kidney [...] Office Visit [facility] [address] [phone] Juan Michelle MD [address] [address] 05/10/2025 Orders Only [facility] [address] [address] Liberty Hairston ARNP [address] [phone] Stage 3a chronic kidney disease (HCC); Hypertension; [...] Glucose 340(H) 70 - 99 mg/dL [facility] BUN 22 6 - 24 mg/dL [facility] Creatinine 1.24(H) 0.57 - 1.00 mg/dL [facility] eGFR CKD-EPI CR 2020 51(L) >59 mL/min/1.7 3 [facility] BUN/Creatinine Ratio 18 9 - 23 [facility] Sodium 137 134 - 144 mmol/L [facility] Potassium 5.0 3.5 - 5.2 mmol/L [facility] Chloride 101 96 - 106 mmol/L [facility] Bicarbonate (CO2) 20 20 - 29 mmol/L [facility] Calcium 9.4 8.7 - 10.2 mg/dL [facility] Blood Venous blood / Unknown 02/16/2025 9:43 AM EDT 02/16/2025 Liberty SOLIMAN LAB BLOOD ORDERABLES Final Result [facility] [address] [place] [address] * EXT RESULT ENTRY (01/26/2025) Only the [...] 10.4 8.7 - 10.7 mg/dL eGFR Non-Afr [place] 62 01/26/2025 Historical Provider LAB BLOOD ORDERABLES Araceli l Result * (ABNORMAL) Hemoglobin A1c (05/06/2021 9:46 AM EST) Hemoglobin A1C 11.9(H) (4.0-5.6) % [facility] Comment: MONITORING: In known diabetic patients, hemoglobin A1c targets should be discussed with health care provider. DIAGNOSTIC USE: The [place] Diabetes Association (ADA) and the World Health [...] Supplement 1 Testing performed or reported by [facility], a Service of [facility], [address] [place] [id number] Winter Cruz MD, Manager Field Investigations [facility]# [id number] Blood specimen (specimen) Venous blood / Unknown 05/06/2021 9:46 AM EST 05/06/2021 9:48 AM EST Linden Munoz MD LAB BLOOD ORDERABLES Final Re sult [facility] from Last 3 Months or Most Recently Relevant to Health Maintenance Insurance [address] [place] [address] ([id number]) YARIEL ARMSTRONG [phone] [facility] ([id number]) YARIEL ARMSTRONG [phone] Care Teams Check Writer Relationship Specialty Start Date End Date Bi Dennis MD [address] [place] [address] PCP - General Internal Medicine 04/11/21
--- OUTSIDE RECORDS SUMMARY | 2025-04-20 16:13 | XMS_ITS | Clinical Summary ---
Author Organization [facility] Address [address] [place] [address] Care Team Providers Care Drill Punch Operator Name Role Phone Bi Dennis MD Primary Care Provider [phone] Immunizations Immunization Administration Dates Next Due COVID-19, [...] Date of Phone Billing Address Personal/Family [address] [place] [address] [address] [place] [address] MEDICAID MEDICARE PART B Care Teams Drill Punch Operator Relationship Specialty Start Date End Date Bi Dennis MD [address] [place] [address] PCP - General Internal Medicine 11/03/19
--- OUTSIDE RECORDS SUMMARY | 2025-04-20 16:13 | XMS_ITS | Clinical Summary ---
Author Organization [facility] ity Address [address] [place] [address] Care Team Providers Care Body Wirer Name Role Phone Bi Dennis MD Primary [...] age to complete this topic Care Teams Body Wirer Relationship Specialty Start Date End Date Bi Dennis MD [address] [place] [address] [address] [place], [place] PCP - General Internal Medicine 12/15/16
--- OUTSIDE RECORDS SUMMARY | 2025-04-20 16:13 | XMS_ITS | Clinical Summary ---
Author Organization [facility] Address [address] [place] [address] Care Team Providers Care Coremaker Name Role Phone Bi Dennis Primary Care Provider [phone] Allergies Active Allergy Reactions Criticality Noted Date [...] Tdap) 03/03/2026 03/03/2016 Procedures * Due to [place] [email or web address] law, this organization might not be sharing negative HIV tests. Procedure Name Priority Date/Time Associated Diagnosis Comments AMB EXTERNAL CT CHEST, OUTSI DE RESULT Routine 01/09/2019 from Last 3 Months or Most Recently Relevant to Health Maintenance Results * Due to [place] [email or web address] law, this organization might not be sharing negative HIV tests. * CT Chest, Outside Result (01/09/2019) us In System Do Not Edit Provider-Not AMB EXTERNAL RESULT PROCEDURES Final Result from Last 3 Months or Most Recently Relevant to Health Maintenance Insurance [facility] Care Teams Coremaker Relationship Specialty Start Date End Date Bi Dennis [address] [place] [address] dr Lavell Monte, [place] [address] PCP - General Internal Medicine 01/05/20
== END 2025-04-20 12:36 | disposition home or self-care (01) ==
LOC: HO.NEURO 12:35
PROVIDERS: PCP Internal Medicine; Visit Provider Psychiatry & Neurology Neurology
DX: R41.3 Other amnesia (principal)
CPT/HCPCS: 95819

== ENCOUNTER → 2025-04-20 14:20 | Outpatient (BNV) | payer OTHER, SELFPAY | PROVIDERS: PCP Internal Medicine; Visit Provider Psychiatry & Neurology Neurology | DX: R41.3 Other amnesia (principal) | CPT/HCPCS: 95819 ==